=== PATIENT | male | born 1950 | race Caucasian/White ===

== ENCOUNTER 2020-10-23 09:52 | Emergency (ER) | payer MEDICARE, SELFPAY ==
[2020-10-23 10:29] VITALS: BP 166/82; PULSE 93; RESP 14; TEMP 36.9; O2SAT 99
--- NOTE | 2020-10-23 10:43 | ED.MALEGU ---
HPI - Male Genitourinary General Chief complaint: Urogenital-Male Stated complaint: BLOOD IN URINE Time Seen by Provider: 10/23/20 10:17 Source: patient Mode of arrival: ambulatory Limitations: no limitations History of Present Illness HPI Narrative: Patient is a 70-year-old male who presents complaining of hematuria and dysuria starting last p.m. He reports only able to urinate small amounts and only with a bowel movement. He reports a history of prostate cancer and radiation last year. His urologist is Dr. Matias. He denies abdominal pain, nausea or vomiting. He denies all other complaints. MD Complaint: other (Hematuria) Related Data Home Medications Medication Instructions Recorded Confirmed [id number]-[id number]-ast 1 cap PO DAILY 10/23/19 10/28/19 [MegaRed [place]-3 Krill Oil] vitamin B complex-folic acid [B 1 tablet PO DAILY 10/23/19 10/28/19 Complex 1 (with folic acid)] amoxicillin 875 mg-potassium 1 tablet PO BID 07/27/20 clavulanate 125 mg tablet Allergies Allergy/AdvReac Type Severity Reaction Status Date / Time No Known Allergies Allergy Unknown Verified 07/27/20 10:07 Review of Systems Review of Systems: Narrative: CONSTITUTIONAL: Denies fever, chills, or sweats. EYES: Denies visual changes, redness, or discharge. ENT: Denies rhinorrhea, congestion, sore throat, or otalgia. CARDIOVASCULAR: Denies chest pain, palpitations, or edema. RESPIRATORY: Denies cough or dyspnea. GASTROINTESTINAL: Denies abdominal pain, nausea, vomiting, or diarrhea. GENITOURINARY: Reports dysuria, hematuria and difficulty with urination. SKIN: Denies rash or itching. MUSCULOSKELETAL: Denies back pain, joint pain, or myalgia. NEUROLOGIC: Denies headache, numbness, dizziness, or weakness. PSYCHIATRIC: Denies anxiety or depression. [facility] Past Medical History Medical History H/O prostate cancer Hematochezia Hyperlipidemia Hypothyroid Prostate cancer Family History Family History Father Diabetes mellitus Hypertension Social History Social History Smoking status: Never smoker Alcohol intake: current Exam Narrative: Exam Narrative: GENERAL: Well-appearing, well-nourished, and in no acute distress. HEAD: Normocephalic, atraumatic. EYES: No redness or drainage. ENT: Mucous membranes pink and moist. CHEST: No respiratory distress. HEART: Regular rate and rhythm. GI: Soft, nontender without rebound, or guarding. EXTREMITIES: Normal range of motion. SKIN: Warm, dry, no rash. NEURO: No focal deficits. Alert and oriented x3. Gait steady. PSYCH: Normal affect. No signs of depression or anxiety. Course Vital Signs Vital signs: Vital Signs Temperature 36.9 C 10/23/20 10:29 Pulse Rate 93 10/23/20 10:29 Respiratory Rate 14 10/23/20 10:29 Blood Pressure 166/82 H 10/23/20 10:29 Pulse Oximetry 99 10/23/20 10:29 Temperature 36.9 C 10/23/20 10:29 Pulse Rate 93 10/23/20 10:29 Respiratory Rate 14 10/23/20 10:29 Blood Pressure 166/82 H 10/23/20 10:29 Pulse Oximetry 99 10/23/20 10:29 Reviewed. Patient has been instructed to follow-up with his PCP regarding his blood pressure. MDM - Male Genitourinary MDM Narrative Medical decision making narrative: Spoke with Dr. Martinez, urology. Patient had 330 residual urine after bladder scan. Patient to have Lindsey placed and flushed, follow-up with Dr. Matias on Sunday. Patient is aware that if Lindsey stops draining, to return to the ED for further evaluation. Patient is stable for discharge to home with outpatient follow-up as discussed. Differential Diagnosis Differential diagnosis: Likely urinary tract infection, prostatitis and acute retention of urine Lab Data Labs: Lab Results 10/23/20 Range/Units 10:45 Urine Color Red H (Yellow) Urine Yolanda
[2020-10-23 11:04] LABS: Add Urine Microscopic? YES; Appearance Urine Cloudy (Clear); Bilirubin Urine Negative (Negative); Blood Urine 3+ (Negative); Glucose Urine UA Negative (Negative); Ketones Urine Negative (Negative); Leukocyte Esterase Ur Negative LEU/UL (Negative); Nitrate Urine Negative (Negative); Protein Urine 2+ mg/dL (Negative); RBC Urine >75 /hpf (0-2); Specific Grav Ur 1.014 (1.001-1.035); Urobilinogen Urine Negative mg/dL (<2.0); WBC Urine >75 /hpf
[2020-10-23 11:14] LABS: Color Urine Red (Yellow)
[2020-10-23 11:30] VITALS: BP 155/77; PULSE 70; RESP 14; O2SAT 99
[2020-10-23 12:30] VITALS: BP 154/80; PULSE 80; RESP 12; O2SAT 99
== END 2020-10-23 12:31 | disposition home or self-care (01) ==
PROVIDERS: Emergency Provider Nurse Practitioner; PCP Family Medicine
DX: R33.9 Retention of urine, unspecified (principal); Z85.46 Personal history of malignant neoplasm of prostate; E78.5 Hyperlipidemia, unspecified; E03.9 Hypothyroidism, unspecified
CPT/HCPCS: 51702; 81001; 87086; 99283

== ENCOUNTER 2020-10-25 10:40 | Outpatient (CLI) | payer MEDICARE, SELFPAY ==
--- NOTE | ~2020-10-25 | CT_ITS ---
EXAMINATION: CT abdomen pelvis wo/w con DATE: 10/25/2020 11:42 INDICATION: Gross hematuria TECHNIQUE: Computed tomography (CT) of the abdomen and pelvis was performed without and subsequently with 130 cc Omnipaque 350 intravenous contrast. Automated exposure control and iterative reconstructi on technique were employed. Exam dose: 1512.67 mGy-cm total exam DLP. COMPARISON: None. FINDINGS: There are bilateral calcified pulmonary granulomas. The lung bases are clear of infiltrate or consolidation. Normal heart size. No pericardial or pleural effusion. Very small sliding hiatal hernia. The liver, gallbladder, bile ducts, spleen, pancreas, pancreatic duct, and adrenal glands are unremar kable. 1.5 cm lower pole right renal cysts. 6.6 cm lower pole left renal cyst. There is atherosclerotic calcification of the abdominal aorta and iliac arteries but no evidence of a neurysm. No intraperitoneal or retroperitoneal or pelvic mass lesion or adenopathy or ascites. There is a focal sessile polyp-like soft tissue density along the upper anterior wall of the urinary bladder, measuring up to proximally 4.5 mm depth, 12 mm maximal width. Cystoscopic correlation and pe rhaps biopsy are recommended. Air is noted within the urinary bladder. Differential diagnosis includes recent instrumentation, cyst itis versus fistulous communication with bowel. There is prostate enlargement. Radiopaque densities noted within the prostate gland. Normal appendix. There are numerous diverticula of the sigmoid and descending colon, and to a minimal extent the ascen ding colon; no CT evidence of diverticulitis. No bowel obstruction, bowel wall thickening, pneumatosis or intraperitoneal free air is detected. There are degenerative changes of the included lower thoracic and lumbar spine, including prominent m ultilevel degenerative disc disease of the lumbar and lumbosacral area. IMPRESSION: Small upper anterior bladder wall mass; cannot exclude urothelial bladder malignancy. Ur ologic consult with cystoscopy and possible biopsy are recommended. Prostate enlargement Diverticulosis of the colon Small sliding hiatal hernia Bilateral renal cysts Reviewed, dictated and finalized at [facility]. Reviewed, dictated and finalized at [facility]. [employer]ING [employer] IMPRESSION: Small upper anterior bladder wall mass; cannot exclude urothelial bladder malignancy. Urologic consult with cystoscopy and possible biopsy are re commended. Prostate enlargement Diverticulosis of the colon Small sliding hiatal hernia Bilateral renal cysts
[2020-10-25 11:19] LABS: Estimated Glomerular Filt Rate > 60
== END 2020-10-25 10:41 | disposition home or self-care (01) ==
PROVIDERS: PCP Family Medicine; Visit Provider Urology
DX: R31.0 Gross hematuria (principal); N32.89 Other specified disorders of bladder; N40.0 Benign prostatic hyperplasia without lower urinary tract symptoms; K57.90 Diverticulosis of intestine, part unspecified, without perforation or abscess without bleeding; K44.9 Diaphragmatic hernia without obstruction or gangrene; N28.1 Cyst of kidney, acquired
CPT/HCPCS: 74178; Q9967

== ENCOUNTER 2020-11-22 05:03 | Emergency (ER) | payer MEDICARE, SELFPAY ==
--- NOTE | ~2020-11-22 | US_ITS ---
EXAMINATION: US pelvic limited EXAM DATE: 11/22/2020 09:51 INDICATION: Gross hematuria, clots. TECHNIQUE: Pelvic transabdominal sonogram was performed. There are multiple grayscale and Doppler im ages available for interpretation. Correlation is made to CT urogram 10/25/2020. FINDINGS: Images demonstrate a Lindsey catheter and balloon anchor in the bladder there is echogenic ma terial in the dependent, posterior aspect of the bladder, partially surrounding the Lindsey catheter ba lloon. Total volume of this blood clot is probably about the same size as the Lindsey balloon anchor al though crescent-shaped surrounding it posteriorly. It is difficult to identify the small focal region of bladder wall thickening identified along the an terior superior aspect on CT scan from 10/25/2020, possible transitional cell cancer. IMPRESSION: Dependent echogenic material probably blood clot, total volume likely similar to the Fole y balloon anchor contiguous to it. Reviewed, dictated and finalized at location B. CONTROL ANALYST IMPRESSION: Dependent echogenic material probably blood clot, total volume like ly similar to the Lindsey balloon anchor contiguous to it.
[2020-11-22 05:13] VITALS: BP 161/91; PULSE 91; RESP 16; TEMP 37; O2SAT 100
--- NOTE | 2020-11-22 07:37 | ED.MALEGU ---
HPI - Male Genitourinary General Chief complaint: Urogenital-Male Stated complaint: HEMATURIA, DIFF WITH URINATION Time Seen by Provider: 11/22/20 07:36 Source: patient and family Mode of arrival: ambulatory Limitations: no limitations History of Present Illness HPI Narrative: Patient presents with hematuria that started yesterday. History of similar symptoms 1 month ago secondary to prostatic radiation which started 2 years ago. Patient was not able to urinate. Patient denies taking blood thinners, fever, chills, nausea, vomiting. Complaining of severe lower abdominal pain Related Data Home Medications Medication Instructions Recorded Confirmed [id number]-itpzhep-ast 1 cap PO DAILY 10/23/19 10/28/19 [MegaRed [place]-3 Krill Oil] vitamin B complex-folic acid [B 1 tablet PO DAILY 10/23/19 10/28/19 Complex 1 (with folic acid)] amoxicillin 875 mg-potassium 1 tablet PO BID 07/27/20 clavulanate 125 mg tablet Allergies Allergy/AdvReac Type Severity Reaction Status Date / Time No Known Allergies Allergy Unknown Verified 07/27/20 10:07 Review of Systems Review of Systems: Narrative: CONSTITUTIONAL: Denies fever, chills, or sweats. EYES: Denies visual changes, redness, or discharge. ENT: Denies rhinorrhea, congestion, sore throat, or otalgia. CARDIOVASCULAR: Denies chest pain, palpitations, or edema. RESPIRATORY: Denies cough or dyspnea. GASTROINTESTINAL: Denies abdominal pain, nausea, vomiting, or diarrhea. GENITOURINARY: Hematuria SKIN: Denies rash or itching. MUSCULOSKELETAL: Denies back pain, joint pain, or myalgia. NEUROLOGIC: Denies headache, numbness, or weakness. PSYCHIATRIC: Denies anxiety or depression. [facility] Past Medical History Medical History H/O prostate cancer Hematochezia Hyperlipidemia Hypothyroid Prostate cancer Family History Family History Father Diabetes mellitus Hypertension Social History Social History Smoking status: Never smoker Alcohol intake: current Exam Narrative: Exam Narrative: General appearance: Well-developed, well-nourished Skin: Normal color Head: Normocephalic, nontraumatic Eyes: Clear conjunctiva ENT: Oropharynx normal, ears normal, nose normal Neck: Supple, nontender Chest and respiratory: Airway patent, no respiratory distress, no accessory muscle use Heart: Regular rate/rhythm Abdomen: Soft, nontender, no organomegaly, quiet bowel sounds, Lindsey catheter in place, patient looks comfortable, Lindsey catheter bag containing 600 cc dark blood Vascular: Normal peripheral pulses, normal capillary refill. Musculoskeletal: Normal range of motion, nontender back Neurologic: Alert and oriented ?3, CARE TECH is normal as tested, no gross motor deficit Course Course Emergency Course: Improving Reevaluation(s) Reevaluation #1: Patient feeling much better, three-way Lindsey catheter was placed, draining urine is almost clear at this time, patient will be discharged on Cipro for urinary tract infection and to keep the Lindsey catheter in to be evaluated by his urologist in the next 3 to 5 days. Date: 11/22/20 Time: 10:38 Consultations Consultation #1: DR COOPER. It is okay with the discharge plan. Date: 11/22/20 Time: 10:44 Vital Signs Vital signs: Vital Signs Temperature 37.0 C 11/22/20 05:13 Pulse Rate 91 11/22/20 05:13 Respiratory Rate 16 11/22/20 05:13 Blood Pressure 161/91 H 11/22/20 05:13 Pulse Oximetry 100 11/22/20 05:13 Temperature 37.0 C 11/22/20 05:13 Pulse Rate 77 11/22/20 08:
--- NOTE | 2020-11-22 08:45 | WPDURCON ---
Assessment and Plan Assessment and plan (1) Hx of malignant neoplasm of prostate: Code(s): Z85.46 - Personal history of malignant neoplasm of prostate Status: Acute (2) Gross hematuria: Code(s): R31.0 - Gross hematuria Status: Acute Assessment and Plan: UTI v.s. Radiation Cystitis Will place a 3 way novoa, obtain a UA/Culture of urine, start CBI and get a LA once irrigated to rule out clot obstruction. Keep NPO at this time. Start antibiotics if urine appears to be infected. LA shows a small clot approximately the size of the catheter balloon, otherwise normal. His UA is suggestive of a UTI. CBI was stopped after that clot was irrigated as it was clear and patient went home with 3 way novoa to follow up in 3-5 days. He was also prescribed Ciprofloxacin. Urology Consult Note HPI Date Seen: 11/22/20 Primary Care Provider: Les Mason MD Consult Narrative Narrative: Angel Vargas is a 70 year old male who presented to the ER this morning for worsening acute onset of gross hematuria. His symptoms began yesterday mid morning with heavy blood in the urine, dysuria, frequency and pelvic pain. He denies injury or over activity prior to this event. He also c/o clots and inability to urinate through the night. 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 He is a known prostate cancer patient of Dr. Matias, who was treated with radiation and is now undergoing Firmagon injections q 4-6 months. He had a recent CT scan which showed normal upper tracts and a possible bladder tumor. However Dr. Matias followed up with him in the office after his discharge from the hospital for a cystoscope which was negative for any bladder tumors. He is hypertensive, but otherwise vitals are normal and he is afebrile. His inital catheter was placed and draining bloody urine, but a 3 way has been ordered and will be placed to start CBI. A UA with reflex to culture will also be collected to rule out infection. Review of Systems Cardiovascular: Cardiovascular: Denies chest pain Respiratory: Respiratory: Reports no additional respiratory complaints Gastrointestinal: Gastrointestinal: Denies abdominal pain, Denies nausea and Denies vomiting Genitourinary: Genitourinary: Reports hematuria, Reports dysuria, Denies flank pain, Reports urinary frequency and Denies urinary urgency [facility] Past Medical History Medical History H/O prostate cancer Hematochezia Hyperlipidemia Hypothyroid Prostate cancer Family History Family History Father Diabetes mellitus Hypertension Social History Social History Smoking status: Never smoker Alcohol intake: current Meds Home Medications and Allergies Home Medications Medication Instructions Recorded Confirmed Type [id number]-[id number]-6-erq-lbh-surmfxd-ast 1 cap PO DAILY 10/23/19 10/28/19 History [MegaRed [place]-3 Krill Oil] vitamin B complex-folic acid [B 1 tablet PO DAILY 10/23/19 10/28/19 History Complex 1 (with folic acid)] amoxicillin 875 mg-potassium 1 tablet PO BID 07/27/20 History clavulanate 125 mg tablet rosuvastatin 20 mg tablet 20 mg PO DAILY #90 tablet 07/27/20 07/27/20 Rx levothyroxine 112 mcg tablet 112 mcg PO DAILY #90 tablet 08/09/20 Rx ciprofloxacin HCl [Cipro] 500 mg PO Q12H #20 tablet 11/22/20 Rx Allergies Allergy/AdvReac Type Severity Reaction Status Date / Time No Known Allergies Allergy Unknown Verified 07/27/20 10:07 Vital Signs Vital Signs - 24 hr 11/22/20 05:13 Temperature 98.6 F Pulse Rate 91 Respiratory Rate 16 Blood Pressure 161/91 H Pulse Oximetry 100 Exam Resp: Effort & Inspection: normal respiratory effort Cardio: Rate: regular rate GI: Inspection: non-distended GI Palp: Yes Soft to palp
[2020-11-22 08:52] VITALS: BP 139/75; PULSE 77; RESP 17; O2SAT 98
[2020-11-22] MEDS: LIDOCAINE HCL 2% GEL UROJET 10 ML PKG (08:53)
[2020-11-22 09:11] LABS: Add Urine Microscopic? YES; Appearance Urine Cloudy (Clear); Bilirubin Urine Negative (Negative); Blood Urine 3+ (Negative); Color Urine Red (Yellow); Glucose Urine UA Negative (Negative); Ketones Urine Trace mg/dL (Negative); Leukocyte Esterase Ur Negative LEU/UL (Negative); Nitrate Urine Negative (Negative); Protein Urine 3+ mg/dL (Negative); RBC Urine >75 /hpf (0-2); Specific Grav Ur 1.011 (1.001-1.035); Urobilinogen Urine Negative mg/dL (<2.0); WBC Urine >75 /hpf
[2020-11-22] MEDS: CIPROFLOXACIN 500 MG TAB PO (11:09)
[2020-11-22 11:22] VITALS: BP 128/78; PULSE 77; RESP 17; O2SAT 100
== END 2020-11-22 11:24 | disposition home or self-care (01) ==
PROVIDERS: Nurse Practitioner Adult Health; Emergency Provider Emergency Medicine; PCP Family Medicine
DX: N39.0 Urinary tract infection, site not specified (principal); C61 Malignant neoplasm of prostate; R31.9 Hematuria, unspecified; R33.9 Retention of urine, unspecified; E03.9 Hypothyroidism, unspecified; E78.5 Hyperlipidemia, unspecified
CPT/HCPCS: 51700; 51702; 76857; 81001; 87086; 99283; A9270

== ENCOUNTER 2020-11-22 20:46 | Observation (INO) | payer MEDICARE, SELFPAY ==
--- NOTE | ~2020-11-22 | US_ITS ---
EXAMINATION: US pelvic limited DATE: 11/23/2020 08:40 INDICATION: Hematuria. TECHNIQUE: Multiple grayscale and Doppler ultrasound images of the pelvis were obtained. COMPARISON: Ultrasound 11/22/2020, CT abdomen and pelvis 10/25/20 FINDINGS: There is a Lindsey catheter in the bladder. There is hematoma around the Lindsey catheter. IMPRESSION: 1. Hematoma in the bladder. Reviewed, dictated and finalized at location [facility]. ERN DRUM MAKER IMPRESSION: 1. Hematoma in the bladder.
[2020-11-22 20:48] VITALS: BP 132/77; PULSE 86; RESP 14; TEMP 36.6; O2SAT 100
--- NOTE | 2020-11-22 21:30 | PC.NURSE ---
Pts catheter flushed using 1L normal saline and piston syringe per EDP Daniele verbal order. Dark blood returned with multiple clots. After 1L flushed urine was still dark with difficulty removing some clots. EDP notified. Verbal order to replace catheter with 3-way and start CBI obtained and started. Pt tolerating well.
--- NOTE | 2020-11-22 22:03 | ED.MALEGU ---
HPI - Male Genitourinary General Chief complaint: Urogenital-Male Stated complaint: plugged catheter Time Seen by Provider: 11/22/20 21:01 History of Present Illness HPI Narrative: Patient is a 70-year-old male who presents ER with bleeding from his Lindsey catheter. Patient was seen earlier in the day due to urinary retention and hematuria. He underwent continuous bladder irrigation with three-way urinary catheter. That was then exchanged for normal Lindsey. He went home was doing well until he stopped having return of urine several hours ago. He then developed lower abdominal pressure and then will void around his catheter. He is not any blood thinners. He was started on antibiotics. Apparently has had issues like this due to radiation several years ago related to prostate cancer. Related Data Home Medications Medication Instructions Recorded Confirmed hesss-qg-5-xwq-gyy-iqkcttv-ast 1 cap PO DAILY 10/23/19 11/23/20 [MegaRed [place]-3 Krill Oil] vitamin B complex-folic acid [B 1 tablet PO DAILY 10/23/19 11/23/20 Complex 1 (with folic acid)] chlorhexidine gluconate 15 ml PO TID 11/23/20 11/23/20 doxycycline hyclate 100 mg PO BID 11/23/20 11/23/20 Allergies Allergy/AdvReac Type Severity Reaction Status Date / Time No Known Allergies Allergy Unknown Verified 11/23/20 02:25 Review of Systems Constitutional: Constitutional: Denies chills, Denies fever(s) and Denies weakness Gastrointestinal: Gastrointestinal: Reports abdominal pain, Denies nausea and Denies vomiting Genitourinary: Genitourinary: Reports hematuria, Denies oliguria, Denies dysuria and Denies urinary frequency [facility] Past Medical History Medical History (Updated 11/23/20 @ 07:03 by Brijesh Sanabria MD) H/O prostate cancer Hematochezia Hyperlipidemia Hypothyroid Prostate cancer Family History Family History (Updated 11/23/20 @ 02:53 by Agnes Fontanez, RN) Father Diabetes mellitus Hypertension Acute angina Coronary artery disease Mother Congestive heart failure Sibling Myocardial infarction Social History Social History (Updated 11/23/20 @ 02:53 by Agnes Fontanez, RN) Smoking status: Never smoker Alcohol intake: current Drinks per week: 21 Substance use: current Substance use type: marijuana Living arrangements: with family Occupation/Education: retired Gender identity (if verbalized by the patient): Male Spiritual care concerns: No Exam Narrative: Exam Narrative: GENERAL: Well-appearing, well-nourished, and in no acute distress. HEAD: Normocephalic, atraumatic. EYES: PERRL and EOMI. ABDOMEN: Soft, nontender, nondistended. : Dark red urine in Lindsey catheter with normal external genitalia. EXTREMITIES: Normal range of motion. No edema. SKIN: Warm, dry, no rash. NEURO: Alert and oriented x3. PSYCH: Normal mood and affect. Course Course Emergency Course: Persistent hematuria despite CBI. Discussed with urology. Admit for observation to their service with an ultrasound morning keeping patient n.p.o. Patient verbalized understanding. Vital Signs Vital signs: Vital Signs Temperature 97.8 F 11/22/20 20:48 Pulse Rate 86 11/22/20 20:48 Respiratory Rate 14 11/22/20 20:48 Blood Pressure 132/77 11/22/20 20:48 Pulse Oximetry 100 11/22/20 20:48 Temperature 97.5 F L 11/23/20 04:36 Pulse Rate 67 11/23/20 04:36 Respiratory Rate 18 11/23/20 04:36 Blood Pressure 137/67 11/23/20 04:36 Pulse Oximetry 100 11/23/20 04:36 MDM - Male Genitourinary Lab Data Labs: Urine Characteristics Clots Urine Characteristics Clots Discharge Plan Discharge Clinical Impression: Hematuria Patient Disposition: Still a Patient Condition: Stable
--- NOTE | 2020-11-22 23:42 | PC.NURSE ---
1 bag infused for CBI, some small clots seen. Urine pink in color. 2nd bag infusing at this time.
[2020-11-23] VITALS (13 sets, daily range): BP systolic 102–141; BP diastolic 62–82; PULSE 56–78; RESP 10–20; TEMP 36–37.1; O2SAT 72–100; BMI 27.6
--- NOTE | 2020-11-23 01:19 | PC.NURSE ---
2 new 3L saline bags hung for CBI. Urine is pink in color with small clots
[2020-11-23] MEDS: CIPROFLOXACIN 400 MG/D5W 200ML 200 ML 200 MG IVPB ×2 (01:39→11:12)
--- NOTE | 2020-11-23 02:21 | ADMGEN ---
This patient, Angel Vargas, was admitted to Medical Room 346-01. Patient/family oriented to hospital policies and general routines including ID bracelet, bed and alarms, visiting hours, pain management, procedures, bathroom and other care routines, personal items, smoking policy, room service/diet, and visiting hours. Information on how to activate the Rapid Response Team has been discussed. Patient/Family are encouraged to report perceived risks to care and to ask questions if they do not understand what they are told or what they should do.
[2020-11-23] MEDS: MORPHINE SULFATE (*CRX) 4 MG/ML INJ IV PUSH ×3 (02:36→09:12)
[2020-11-23 09:09] LABS: Hemoglobin 11.3 g/dL (14.0-18.0); Mean Corpuscular HGB Conc 33.2 g/dl (32-36); Mean Corpuscular Hemoglobin 31.3 pg (26-34); Mean Corpuscular Volume 94.2 fl (80-100); Mean Platelet Volume 8.8 fl (7.4-10.4); Platelet Count Result 220 k/mm3 (150-375); Red Blood Count 3.61 M/mm3 (4.6-6.20); Red Cell Distribution Width 14.6 % (11.5-14.5); White Blood Count 7.5 K/mm3 (4.5-10.0)
[2020-11-23 09:21] LABS: Anion Gap 5 mmol/L (8-16); Blood Urea Nitrogen 13 mg/dL (9-20); Calcium 8.5 mg/dL (8.4-10.2); Carbon Dioxide 27 mmol/L (22-30); Chloride 107 mmol/L (98-107); Estimated CRCL calculation 65 ml/min; Estimated Glomerular Filt Rate > 60; Glucose 104 mg/dL (75-110); Sodium 139 mmol/L (137-145)
--- NOTE | 2020-11-23 09:32 | WPDURCON ---
Assessment and Plan Assessment and plan (1) Hematuria: Code(s): R31.9 - Hematuria, unspecified Status: Acute Assessment and Plan: CBI stopped, as his bladder is distended and catheter is not draining well. Will plan to go to the OR today for a Cystoscopy with clot evacuation. Obtain consent. Keep NPO. (2) Prostate cancer: Code(s): C61 - Malignant neoplasm of prostate Status: Acute Assessment and Plan: History of radiation cystitis. (3) UTI (urinary tract infection): Code(s): N39.0 - Urinary tract infection, site not specified Status: Acute Assessment and Plan: Continue Cipro, urine culture pending, will tailor antibiotics to culture results. (4) Clot retention of urine: Code(s): R33.8 - Other retention of urine Status: Acute Urology Consult Note HPI Date Seen: 11/23/20 Requesting Physician: Matti Patrick MD Primary Care Provider: Les Mason MD Consult Narrative Narrative: Angel Vargas is a 70 year old male who presented to the ER last night for the second time yesterday. Initially he was seen yesterday morning in the ER d/t acute onset of gross hematuria on Sunday, which worsened requiring a 3 [address] novoa and CBI with irrigation of his bladder until it was clear in the ER, he was started on Cipro and his 3 way novoa was exchanged for a regular catheter and he was discharged home. He states around 5pm he developed sudden retention of his novoa and it wouldn't drain. Therefore, he proceeded back to the ER late last night and was admitted for pain control, had another 3 way novoa placed with CBI and irrigation. Many small clots were removed, unfortunately his bladder US shows a large hematoma. He is in severe pain and his abdomen is distended and painful to palpation. WBC is normal, creatinine is stable as well, he will continue Cipro at this time. Review of Systems Cardiovascular: Cardiovascular: Denies chest pain Respiratory: Respiratory: Reports no additional respiratory complaints Gastrointestinal: Gastrointestinal: Reports abdominal pain, Denies nausea and Denies vomiting Genitourinary: Genitourinary: Reports hematuria, Reports flank pain and Reports other (novoa catheter not draining) [facility] Past Medical History Medical History H/O prostate cancer Hematochezia Hx of tongue cancer Hyperlipidemia Hypothyroid Osteomyelitis of mandible Prostate cancer Family History Family History Father Diabetes mellitus Hypertension Acute angina Coronary artery disease Mother Congestive heart failure Sibling Myocardial infarction Social History Social History Smoking status: Never smoker Alcohol intake: current Drinks per week: 21 Substance use: current Substance use type: marijuana Living arrangements: with family Occupation/Education: retired Gender identity (if verbalized by the patient): Male Spiritual care concerns: No Meds Home Medications and Allergies Home Medications Medication Instructions Recorded Confirmed Type qopaz-wc-5-rdq-yxb-iljwawb-ast 1 cap PO DAILY 10/23/19 11/23/20 History [MegaRed [place]-3 Krill Oil] vitamin B complex-folic acid [B 1 tablet PO DAILY 10/23/19 11/23/20 History Complex 1 (with folic acid)] rosuvastatin 20 mg tablet 20 mg PO DAILY #90 tablet 07/27/20 11/23/20 Rx levothyroxine 112 mcg tablet 112 mcg PO DAILY #90 tablet 08/09/20 11/23/20 Rx ciprofloxacin HCl [Cipro] 500 mg PO Q12H #20 tablet 11/22/20 11/23/20 Rx chlorhexidine gluconate 15 ml PO TID 11/23/20 11/23/20 History doxycycline hyclate 100 mg PO BID 11/23/20 11/23/20 History Allergies Allergy/AdvReac Type Severity Reaction Status Date / Time No Known Allergies Allergy Unknown Verified 11/23/20 02:25 Vital Signs Vital Signs - 24
--- NOTE | 2020-11-23 09:36 | WPDANESEPPF ---
Anes - Initial Pre Proc Eval Procedure: Operation Date: 11/23/20 13:15 Proposed Procedures p Cystoscopy, Evacuation Bladder Clots - Pino Johnson MD Date/Time: 11/23/20 09:36 Surgeon: Matti Patrick MD Pre Op Diagnosis: hematuria Patient Data Age: 70 Gender: M Height: 1.73 m Weight: 82.4 kg Last Vital Signs Temp 36.4 C L 11/23/20 04:36 Pulse 67 11/23/20 04:36 Resp 18 11/23/20 04:36 BP 137/67 11/23/20 04:36 Pulse Ox 100 11/23/20 04:36 Allergies Allergy/AdvReac Type Severity Reaction Status Date / Time No Known Allergies Allergy Unknown Verified 11/23/20 02:25 Home Medications Medication Instructions Recorded Confirmed Type [id number]-[id number]-ast 1 cap PO DAILY 10/23/19 11/23/20 History [MegaRed [place]-3 Krill Oil] vitamin B complex-folic acid [B 1 tablet PO DAILY 10/23/19 11/23/20 History Complex 1 (with folic acid)] rosuvastatin 20 mg tablet 20 mg PO DAILY #90 tablet 07/27/20 11/23/20 Rx levothyroxine 112 mcg tablet 112 mcg PO DAILY #90 tablet 08/09/20 11/23/20 Rx ciprofloxacin HCl [Cipro] 500 mg PO Q12H #20 tablet 11/22/20 11/23/20 Rx chlorhexidine gluconate 15 ml PO TID 11/23/20 11/23/20 History doxycycline hyclate 100 mg PO BID 11/23/20 11/23/20 History Laboratory Tests 11/23/20 11/23/20 08:57 08:57 WBC 7.5 K/mm3 K/mm3 (4.5-10.0) RBC 3.61 M/mm3 L M/mm3 (4.6-6.20) Hgb 11.3 g/dL L g/dL (14.0-18.0) Hct 34.0 % L % (42.0-52.0) MCV 94.2 fl fl (80-100) MCH 31.3 pg pg (26-34) MCHC 33.2 g/dl g/dl (32-36) RDW 14.6 % H % (11.5-14.5) Plt Count 220 k/mm3 k/mm3 (150-375) MPV 8.8 fl fl (7.4-10.4) Sodium 139 mmol/L mmol/L (137-145) Potassium 4.0 mmol/L mmol/L (3.4-5.0) Chloride 107 mmol/L mmol/L (98-107) Carbon Dioxide 27 mmol/L mmol/L (22-30) Anion Gap 5 mmol/L L mmol/L (8-16) BUN 13 mg/dL mg/dL (9-20) Creatinine 0.90 mg/dL mg/dL (0.7-1.3) Estim Creat Clear Calc 65 ml/min ml/min Estimated GFR > 60 (59 - ) Glucose 104 mg/dL mg/dL (75-110) Calcium 8.5 mg/dL mg/dL (8.4-10.2) Patient hx anesthesia problems: none Family hx anesthesia problems: none [facility] Past Medical History Medical History H/O prostate cancer Hematochezia Hx of tongue cancer Hyperlipidemia Hypothyroid Osteomyelitis of mandible Prostate cancer Family History Family History Father Diabetes mellitus Hypertension Acute angina Coronary artery disease Mother Congestive heart failure Sibling Myocardial infarction Social History Social History Smoking status: Never smoker Alcohol intake: current Drinks per week: 21 Substance use: current Substance use type: marijuana Living arrangements: with family Occupation/Education: retired Gender identity (if verbalized by the patient): Male Spiritual care concerns: No Anes - Eval Final PreProcedure Day of Procedure 11/23/20 09:36 Patient weight: overweight Heart: regular rate and rhythm Lungs: clear to auscultation and normal air movement Airway: Mallampati scale class II Neurological: alert and oriented Last oral intake: >/= 8 hours ASA classification: III Emergent: no Anesthetic plan: proceed Anesthesia type and monitoring: general GIVS and LMA Informed Consent: The patient's anesthetic plan and its attendant risks and benefits were discussed with the patient/family/POA. Questions were solicited and answers provided to the satisfaction of the patient/family/POA.
--- NOTE | 2020-11-23 11:46 | WPDHPUPDATE1 ---
History and Physical Update Update Date/Time: 11/23/20 11:46 History and Physical has been reviewed, including an updated exam of the patient. There are NO changes in the patient's condition. Risks, benefits, and alternatives have been discussed and questions answered. Patient agrees to proceed with procedure.
--- NOTE | 2020-11-23 11:55 | PCDIET ---
Pt to OR per bed. Report to BEATRICE Blankenship and BEATRICE Richard; confirmation of SBAR receipt.
[2020-11-23] MEDS: LACTATED RINGERS 1,000 ML 30 ML IV CONT (12:24)
[2020-11-23] MEDS: LIDOCAINE HCL 2% GEL UROJET 10 ML PKG MUCOUS MEM (13:04)
--- NOTE | 2020-11-23 13:32 | PM.PROC ---
Procedure Note - Detailed Date of procedure: 11/23/20 Pre-op diagnosis: hematuria Post-op diagnosis: same (Clots and vascular oozing) Procedure performed: Cystoscopy, clot evacuation, fulguration Description of procedure: Patient is taken to the operative suite and correctly identified. Once anesthesia was obtained he was placed in the dorsal lithotomy position and prepped and draped usual sterile fashion. The prior Lindsey was removed. A 22 Singaporean scope was inserted into the bladder. Using a Franck syringe approximately 2-300 cc of clot was evacuated. Reinspection reveals small little vascular lesion bleeding along the left lateral wall at the 3 o'clock position near the bladder neck. We attempted to resect this with the resectoscope would simply just disintegrated. We fulgurated the base area. We then went ahead and fulgurated a little bit of the posterior bladder wall which was irritated from the catheter. There was no other areas of bleeding noted at this time. Scope was removed. 2% viscous lidocaine was inserted. Twenty-two Singaporean [address] was placed with 15 cc in the balloon. This was connected to continuous bladder irrigation and patient is taken recovery room in stable condition. Anesthesia: GLMA Surgeon: Pino Johnson MD Drains: Yes Packing: No Pathology: none sent Complications: No immediate complications Condition: stable Disposition: PACU
--- NOTE | 2020-11-23 14:42 | PC.NURSE ---
Patient returned from OR per bed. Report received from BEATRICE Simpson.
[2020-11-23] MEDS: ROSUVASTATIN 10 MG TABLET 20 MG PO (15:54)
[2020-11-23] MEDS: DOXYCYCLINE HYCLATE 100 MG TABLET PO (17:18)
[2020-11-23] MEDS: CIPROFLOXACIN 500 MG TAB PO (17:19)
[2020-11-24 02:09] VITALS: BP 121/63; PULSE 67; RESP 14; TEMP 36.7; O2SAT 97
[2020-11-24] MEDS: CIPROFLOXACIN 500 MG TAB PO (05:49)
[2020-11-24] MEDS: LEVOTHYROXINE SODIUM 112 MCG TABLET PO (05:49)
[2020-11-24 06:42] VITALS: BP 124/64; PULSE 64; RESP 16; TEMP 36.7; O2SAT 97
--- NOTE | 2020-11-24 07:29 | WPDANESPN ---
Anes - Prog Note Post-Op Date/Time: 11/24/20 07:29 Cardiovascular status: normal Respiratory status: normal Airway patency: baseline Mental status: baseline Post-Op hydration status: normal Vital Signs: Last Vital Signs Temp 36.7 C 11/24/20 06:42 Pulse 64 11/24/20 06:42 Resp 16 11/24/20 06:42 BP 124/64 11/24/20 06:42 Pulse Ox 97 11/24/20 06:42 Pain Score (VAS): 1 I/O: Intake & Output 11/23/20 11/23/20 11/24/20 15:59 23:59 07:59 Intake Total 250 3100 150 Output Total 2500 3750 750 Balance -2250 -650 -600 Laboratory Tests 11/23/20 08:57 11/23/20 08:57 11/23/20 11/23/20 08:57 08:57 WBC 7.5 RBC 3.61 L Hgb 11.3 L Hct 34.0 L MCV 94.2 MCH 31.3 MCHC 33.2 RDW 14.6 H Plt Count 220 MPV 8.8 Sodium 139 Potassium 4.0 Chloride 107 Carbon Dioxide 27 Anion Gap 5 L BUN 13 Creatinine 0.90 Estim Creat Clear Calc 65 Estimated GFR > 60 Glucose 104 Calcium 8.5 Post-procedural complaints: none Patient Feedback: Patient satisfied with anesthetic care.
[2020-11-24 08:00] VITALS: BP 122/67; PULSE 64; RESP 16; TEMP 36.7; O2SAT 98
[2020-11-24] MEDS: ROSUVASTATIN 10 MG TABLET 20 MG PO (08:27)
[2020-11-24] MEDS: DOXYCYCLINE HYCLATE 100 MG TABLET PO (08:28)
[2020-11-24 09:24] LABS: Hematocrit 31.9 % (42.0-52.0); Hemoglobin 10.6 g/dL (14.0-18.0); Mean Corpuscular HGB Conc 33.2 g/dl (32-36); Mean Corpuscular Hemoglobin 31.7 pg (26-34); Mean Corpuscular Volume 95.5 fl (80-100); Mean Platelet Volume 8.8 fl (7.4-10.4); Platelet Count Result 196 k/mm3 (150-375); Red Blood Count 3.34 M/mm3 (4.6-6.20); Red Cell Distribution Width 14.5 % (11.5-14.5); White Blood Count 7.6 K/mm3 (4.5-10.0)
[2020-11-24 09:36] LABS: Anion Gap 4 mmol/L (8-16); Blood Urea Nitrogen 12 mg/dL (9-20); Calcium 8.6 mg/dL (8.4-10.2); Carbon Dioxide 29 mmol/L (22-30); Chloride 105 mmol/L (98-107); Estimated CRCL calculation 65 ml/min; Estimated Glomerular Filt Rate > 60; Glucose 161 mg/dL (75-110); Potassium 3.6 mmol/L (3.4-5.0); Sodium 138 mmol/L (137-145)
[2020-11-24] MEDS: MORPHINE SULFATE (*CRX) 4 MG/ML INJ IV PUSH (10:49)
[2020-11-24 13:27] VITALS: BP 116/63; PULSE 80; RESP 18; TEMP 36.9; O2SAT 100
--- NOTE | 2020-11-24 13:54 | PC.NURSE ---
On 11/24/20, the student, [Светлана Lawson ], provided care and completed [facility] documentation on this patient. I have reviewed the student's documentation and agree with the findings.
--- NOTE | 2020-11-24 16:03 | WPDUROPN2 ---
Progress Note: A&P Assessment and Plan (1) Clot retention of urine: Code(s): R33.8 - Other retention of urine Status: Acute Assessment and Plan: Patient doing very well. Ok to discharge home, will follow up with Dr. Matias in 2-3 weeks. (2) UTI (urinary tract infection): Code(s): N39.0 - Urinary tract infection, site not specified Status: Acute Assessment and Plan: Urine culture negative. (3) Gross hematuria: Code(s): R31.0 - Gross hematuria Status: Acute Assessment and Plan: Resolving, likely radiation cystitis. Subjective Subjective Date/Time Seen: 11/24/20 16:03 POD #1 Cystoscopy with clot evacuation. Patient had some moderate to severe bladder spasms earlier in the day, but after the catheter was removed he seems to be doing very well. He is urinating on his own with intermittent pink urine. He is well controlled with pain at this time and wants to go home. Review of Systems Cardiovascular: Cardiovascular: Denies chest pain Respiratory: Respiratory: Reports no additional respiratory complaints Gastrointestinal: Gastrointestinal: Denies abdominal pain, Denies nausea and Denies vomiting Genitourinary: Genitourinary: Reports hematuria, Denies dysuria, Denies flank pain, Denies urinary frequency, Denies urinary hesitancy and Reports urinary incontinence Exam Resp: Effort & Inspection: normal respiratory effort Cardio: Rate: regular rate GI: GI Palp: Yes Soft to palpation and No Tenderness to palpation present (GI) : General: Yes bladder normal to inspection and Yes no CVA tenderness Extrem: General: no edema Objective Data Vital Signs Vital Signs: Vital Signs - 24 hr 11/23/20 17:00 11/23/20 17:05 11/23/20 17:06 Temperature 98.1 F 97.3 F L 98.3 F Pulse Rate 78 72 77 Respiratory Rate 16 16 16 Blood Pressure 134/67 102/82 141/76 H Pulse Oximetry 95 72 L 97 11/23/20 21:17 11/24/20 02:09 11/24/20 06:42 Temperature 97.6 F 98.0 F 98.1 F Pulse Rate 78 67 64 Respiratory Rate 16 14 16 Blood Pressure 120/62 121/63 124/64 Pulse Oximetry 96 97 97 11/24/20 08:00 11/24/20 13:27 Temperature 98.0 F 98.4 F Pulse Rate 64 80 Respiratory Rate 16 18 Blood Pressure 122/67 116/63 Pulse Oximetry 98 100 Intake/Output Intake/Output: Intake & Output 11/21/20 11/22/20 11/23/20 11/24/20 23:59 23:59 23:59 23:59 Intake Total 3550 630 Output Total 6410 1350 Balance -2860 -720 Meds/Results Medications: Active Medications Generic Name Dose Route Start Last Admin Trade Name Freq PRN Reason Stop Dose Admin Ciprofloxacin 500 mg 11/23/20 18:00 11/24/20 05:49 Ciprofloxacin 500 Mg Tab PO 500 mg Q12H ANNIE Administration Doxycycline Hyclate 100 mg 11/23/20 17:00 11/24/20 08:28 Doxycycline Hyclate 100 Mg Tablet PO 100 mg BID ANNIE Administration Levothyroxine Sodium 112 mcg 11/24/20 06:30 11/24/20 05:49 Levothyroxine Sodium 112 Mcg Tablet PO 112 mcg DAILY@0630 ANNIE Administration Morphine Sulfate 4 mg 11/23/20 00:54 11/24/20 10:49 Morphine Sulfate (*Crx) 4 Mg/Ml Inj IV PUSH 4 mg Q2H PRN Administration Pain Rated 7-10 Rosuvastatin Calcium 20 mg 11/23/20 09:00 11/24/20 08:27 Rosuvastatin 10 Mg Tablet PO 20 mg DAILY ANNIE Administration Radiology Results: ITS Impressions Pelvis Ultrasound 11/23/20 08:44 IMPRESSION: 1. Hematoma in the bladder. Labs Labs: Laboratory Results - last 24 hr 11/24/20 11/24/20 09:18 09:18 WBC 7.6 RBC 3.34 L Hgb 10.6 L Hct 31.9 L MCV 95.5 MCH 31.7 MCHC 33.2 RDW 14.5 Plt Count 196 MPV 8.8 Sodium 138 Potassium 3.6 Chloride 105 Carbon Dioxide 29 Anion Gap 4 L BUN 12 Creatinine 0.90 Estim Creat Clear Calc 65 Estimated GFR > 60 Glucose 161 H Calcium 8.6
--- NOTE | 2020-12-29 08:19 | P.DS_ITS ---
DS: Admitting Diagnosis Admitting Diagnosis Admitting Diagnosis: Gross Hematuria DS: Discharge Diagnosis Discharge Diagnosis (1) Gross hematuria: Code(s): R31.0 - Gross hematuria Status: Acute DS: Summary Hospital Course Hospital Course: See note below Time Spent with Patient Time attestation: The patient underwent a Cystoscopy, clot evacuation and fulgeration on 11/23/[address] Kylah Johnson. He went to recovery in stable condition and to the floor for further observation overnight. He did well afterward, urine remained clear and pink and novoa was removed on 11/24/2020 and he was discharged home with activity as tolerated and diet as tolerated. He was to resume all home medications except Ciprofloxacin in addition to Tramadol and Pyridium and to follow up in 2-3 weeks. Exam Resp: Effort & Inspection: normal respiratory effort and no stridor Cardio: Rate: regular rate GI: GI Palp: Yes Soft to palpation and No Tenderness to palpation present (GI) : General: Yes no CVA tenderness Urinary Catheter: Urinary Catheter: patent and draining, urine clear and urine pink Extrem: General: no edema Discharge Plan Discharge Attending physician on discharge: Caty Ramirez Consulting providers: Radha Vargas ; Crescencio Fleming V. ; Pino Johnson Discharging Clinician: Radha Vargas Anticipated Discharge Date/Time: 11/24/20 16:08 Patient Disposition: Home, Self-Care Activity: february shower Diet: as tolerated Discharge Instructions: Call the office if you develop worsening blood in the urine or large clots develop, symptoms of urinary retention, symptoms of a UTI or fever of >102. You should proceed to the ER if our office is closed. Call the office to schedule a follow up in 2-[address] Matias. Patient Instructions: Antibiotic Form, Pain Management (DC), Novoa Catheter Placement and Care (DC), Hematuria (GEN), Continuous Bladder Irrigation (GEN) Stand Alone Forms: General Discharge Information Follow-up/Referrals: Joey Matias MD [Physician] - Discharge Medications: New phenazopyridine [Pyridium] 200 mg tablet 200 mg PO TID PRN (Reason: pain) Qty: 6 RF: 0 tramadol 100 mg tablet 100 mg PO Q6H PRN (Reason: pain) Qty: 20 RF: 0 Continued rosuvastatin 20 mg tablet 20 mg PO DAILY Qty: 90 RF: 2 doxycycline hyclate 100 mg tablet 100 mg PO BID RF: 0 chlorhexidine gluconate 0.12 % mouthwash 15 ml PO TID RF: 0 vitamin B complex-folic acid [B Complex 1 (with folic acid)] 0.4 mg Tablet 1 tablet PO DAILY RF: 0 qknxp-pf-4-gwe-cvh-zmavalc-ast [MegaRed [place]-3 Krill Oil] 1,000-230-60 mg Capsule 1 cap PO DAILY RF: 0 levothyroxine 112 mcg tablet 112 mcg PO DAILY Qty: 90 RF: 3 Discontinued ciprofloxacin HCl [Cipro] 500 mg tablet 500 mg PO Q12H Qty: 20 RF: 0 Date of admission: 11/23/20 00:54 Primary Care Provider: Les Mason Admitting Provider: Matti Patrick Attending physician on admission: Matti Patrick Condition: Stable
== END 2020-11-24 16:50 | disposition home or self-care (01) ==
LOC: ANHED 21:17 → ANH3MED 11-23 01:22
PROVIDERS: Nurse Practitioner Adult Health; Urology; Admitting Provider Urology; Emergency Provider Emergency Medicine; PCP Family Medicine; Visit Provider Urology
PROC: 0TCB8ZZ Extirpation of Matter from Bladder, Via Natural or Artificial Opening Endoscopic (ICD-10-PCS; CPT 52001; principal; 2020-11-23 13:15)
DX: R31.0 Gross hematuria (principal); R33.8 Other retention of urine; C61 Malignant neoplasm of prostate; N39.0 Urinary tract infection, site not specified; E78.5 Hyperlipidemia, unspecified; E03.9 Hypothyroidism, unspecified
CPT/HCPCS: 52234; 36415; 76857; 80048; 85027; 96361; 96365; 96375; 96376; 99285; A9270; G0378; J0744; J1100; J1940; J2270; J2370; J2405; J2704; J3010; J7120

== ENCOUNTER 2021-10-28 01:21 | Day surgery (SDC) | payer MEDICARE, SELFPAY ==
--- NOTE | 2021-10-27 14:21 | PC.NURSE ---
Report to the Outpatient Waiting Room, entrance under the green pavilion located off [facility], at time _0600 on date __10/28/21 . OR Time: 729 . - You and your visitor will be asked a series of questions to screen for COVID 19 for your protection. - A mask is required within the hospital. - Only one visitor is allowed at this time. Patient visitors will be guided where to wait when not with patient. Preoperative COVID Testing Requirements: No COVID Test needed if: (proof is required; if not received patient will have Rapid Test prior to entry) - Patient has received COVID Vaccine at least 14 days prior to procedure date or - Patient has positive COVID test result within last 90 days of surgery date. COVID Test needed if above criteria is not met If not COVID vaccinated a COVID test must be conducted within 72 hours of surgery and patient is asked to isolate self from time of testing until procedure. You will go to the [facility] for your COVID testing. The [facility] site is located at the corner of [address] [facility]. You will only be called if COVID results are positive and your surgeon may reschedule your elective surgery date. Patients may have clear liquids (water, carbonated beverages, clear teas, apple juice) until 3 hours prior to surgery with a maximum of 20 ounces. - No food from midnight until time of surgery - Infants may have breast milk until 4 hours before surgery, infant formula 6 hours prior to surgery. - Children will be allowed to drink immediately following surgery. If applicable, please bring a bottle or sippy cup to assist with drinking. Juice, water, soda, and popsicles are readily available. For infants on formula, please bring formula the day of surgery. Pacifiers are allowed. Take the following medications with a SIP of water the morning of surgery: ___LEVOTHYROXINE Medications to discontinue per physician NONE Date to take last dose Please no make-up, nail urdu, hairspray, perfume, deodorant, or body powder the day of surgery. No jewelry (including any body piercings) or valuables the day of surgery, leave them at home. Please take a shower or bath the night before, or the morning of, surgery with an antibacterial soap. Wear comfortable, loose fitting clothing. Children are encouraged to wear pajamas. - Jewelry must be removed prior to entering the operating room. Rings and piercings that are not removed may be cut off. - The hospital will not accept responsibility for valuables. - Please leave all valuables, including medications, at home the day of surgery. If you are going home after surgery, a licensed driver wheelchair must drive you home. - NO public transportation without another adult. - We recommend that an adult stay with you for 24 hours following discharge. - We also recommend that you do not drive, make important decision, drink alcoholic beverages, or take any drugs that were not prescribed by your health care provider for at least 24 hours after your discharge time. For Pediatric surgeries, we recommend two adults accompany the child home (only one inside the building at this time). Follow any additional instructions given to you from your surgeon. Telephone instructions given to ____PATIENT and asked if any additional questions and then verbalized understanding. Patient advised to call surgeon office or pre surgery nurse liaison [phone] if any additional questions.
[2021-10-27 14:24] VITALS: BMI 26.6
[2021-10-28] VITALS (8 sets, daily range): BP systolic 135–187; BP diastolic 79–87; PULSE 58–72; RESP 15–16; TEMP 36.6; O2SAT 99–100
--- NOTE | 2021-10-28 06:48 | WPDHPUPDATE1 ---
History and Physical Update Update Date/Time: 10/28/21 06:48 History and Physical has been reviewed, including an updated exam of the patient. There are NO changes in the patient's condition. Risks, benefits, and alternatives have been discussed and questions answered. Patient agrees to proceed with procedure.
[2021-10-28] MEDS: LACTATED RINGERS 1,000 ML 30 ML IV CONT (08:18)
--- NOTE | 2021-10-28 08:32 | P.PNAN_ITS ---
Anes - Initial Pre Proc Eval Procedure: Operation Date: 10/28/21 09:30 Proposed Procedures p Cystoscopy, Urethral Dilatation - Joey Matias MD Date/Time: 10/28/21 08:32 Surgeon: Joey Matias MD Pre Op Diagnosis: prostate cancer Patient Data Age: 71 Gender: M Height: 1.73 m Weight: 79.9 kg Last Vital Signs Temp 36.6 C 10/28/21 07:44 Pulse 71 10/28/21 07:44 Resp 16 10/28/21 07:44 BP 135/83 10/28/21 07:44 Pulse Ox 100 10/28/21 07:44 Allergies Allergy/AdvReac Type Severity Reaction Status Date / Time No Known Allergies Allergy Unknown Verified 10/28/21 07:59 Home Medications Medication Instructions Recorded Confirmed Type levothyroxine 112 mcg tablet 112 mcg PO DAILY #90 tablet 08/09/20 10/28/21 Rx doxycycline hyclate 100 mg PO DAILY 11/23/20 10/28/21 History rosuvastatin 20 mg tablet 20 mg PO DAILY #90 tablet 07/11/21 10/28/21 Rx ascorbic acid (vitamin C) 500 mg PO DAILY 10/27/21 10/28/21 History lisinopril 10 mg PO DAILY 10/27/21 10/28/21 History Patient hx anesthesia problems: none Family hx anesthesia problems: none Results Review: All pre-operative results and documents have been reviewed as part of the pre-operative evaluation. [facility] Past Medical History Medical History BMI 28.0-28.9,adult H/O prostate cancer Hematochezia Hx of tongue cancer Hyperlipidemia Hypothyroid Osteomyelitis of mandible Prostate cancer Family History Family History Father Diabetes mellitus Hypertension Acute angina Coronary artery disease Mother Congestive heart failure Sibling Myocardial infarction Social History Social History Smoking status: Former smoker Alcohol intake: current Drinks per week: 21 Substance use: current Substance use type: marijuana Living arrangements: with family Gender identity (if verbalized by the patient): Male Spiritual care concerns: No Anes - Eval Final PreProcedure Day of Procedure 10/28/21 08:32 Patient weight: overweight Heart: regular rate and rhythm Lungs: decreased breath sounds Airway: Mallampati scale class II Neurological: alert and oriented Last oral intake: >/= 8 hours ASA classification: III Emergent: no Anesthetic plan: proceed Anesthesia type and monitoring: general LMA and standard monitoring Results Review: All pre-operative results and documents have been reviewed as part of the pre-operative evaluation. Informed Consent: The patient's anesthetic plan and its attendant risks and benefits were discussed with the patient/family/POA. Questions were solicited and answers provided to the satisfaction of the patient/family/POA.
[2021-10-28] MEDS: ceFAZolin 2 GM/D5W 50 ML 2 GM/50 ML BAG IVPB (09:31)
[2021-10-28] MEDS: LIDOCAINE HCL 2% GEL UROJET 10 ML PKG MUCOUS MEM (09:40)
--- NOTE | 2021-10-28 10:00 | W.PM.PROC2 ---
Procedure Note - Detailed Date of Procedure 10/28/21 Pre-op Diagnosis Bulbous urethral stricture Post-op Diagnosis same Procedure Performed 1. Optical internal urethrotomy 2. Cystoscopy with urethral dilatation Surgeon Joey Matias MD Anesthesia general Description of Procedure The patient was brought to the operative suite where he was prepped and draped in a routine sterile fashion while in a dorsal lithotomy position after the uneventful administration of systemic sedation by the anesthesia department. 2% Lidocaine was placed in the urethra and allowed to stand for an appropriate period of time. Cystoscopy was undertaken with a 19F rigid cystoscope. He has a markedly constricting stricture of the bulbous urethra. The bladder itself was endoscopically normal without foreign body or neoplasm. The bladder mucosa was without hyperemia. There was a single orthotopic ureteral orifice bilaterally with clear reflex of urine. Using the optical urethrotome, I incised the strictured urethra at the 12 o'clock position care taken to avoid injury to the membranous urethra. to completely dilate the most proximal extent of this stricture did dilate with urethral dilators to from 16-24 F. An 20F Councill catheter was placed, the bladder was emptied and the patient was taken to the recovery room in good condition. Estimated Blood Loss 0 Drains Yes Packing No Pathology none sent Complications No immediate complications Condition stable Disposition PACU
[2021-10-28] MEDS: oxyCODONE HCL (*CRX) 5 MG TAB IR PO (11:27)
[2021-10-28] MEDS: hydrALAZINE HCL 20 MG/ML VIAL 10 MG IV PUSH (11:52)
== END 2021-10-28 12:33 | disposition home or self-care (01) ==
PROVIDERS: PCP Family Medicine; Visit Provider Urology
PROC: 0T7D8ZZ Dilation of Urethra, Via Natural or Artificial Opening Endoscopic (ICD-10-PCS; CPT 52281; principal; 2021-10-28 09:30)
DX: N35.912 Unspecified bulbous urethral stricture, male (principal); E78.5 Hyperlipidemia, unspecified; E03.9 Hypothyroidism, unspecified; Z85.46 Personal history of malignant neoplasm of prostate; F12.90 Cannabis use, unspecified, uncomplicated
CPT/HCPCS: 52276; A9270; C1769; J0360; J0690; J1100; J2405; J2704; J7120

== ENCOUNTER 2022-01-23 20:02 | Observation (INO) | payer MEDICARE, SELFPAY ==
[2022-01-23] VITALS (7 sets, daily range): BP systolic 142–173; BP diastolic 67–88; PULSE 72–87; RESP 14–24; TEMP 36.2; O2SAT 93–100
--- NOTE | ~2022-01-23 | MR_ITS ---
. EXAMINATION: MR brain/brain stem wo/w con DATE: 01/24/2022 08:36 INDICATION: Vertigo. TECHNIQUE: Magnetic resonance imaging (MRI) of the brain and brainstem was performed without and with 15 mL MultiHance intravenous contrast. Sequences included sagittal and axial T1-weighted FSE, axial diffusion-weighted FS EPI, axial T2*-weighted GRE, axial T2-weighted FLAIR Propeller, and axial T2-we ighted Propeller. Postcontrast sequences included axial and coronal T1-weighted FSE. Apparent diffusi on coefficient (ADC) maps were created. COMPARISON: Head CT 01/23/2022 FINDINGS: There is a small focus of increased T2-weighted signal intensity in the right frontal lobe deep white matter, which is normal as an isolated finding. 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 There is no intracranial hemorrhage, acute infarction, or abnormal intracranial mass lesion. The ventricles are normal in size. There is mucosal thickening in the paranasal sinuses. The orbits are normal. There is a trace right mastoid effusion. IMPRESSION: 1. Normal brain. Reviewed, dictated and finalized at location A. IMPRESSION: 1. Normal brain.
--- NOTE | ~2022-01-23 | CT_ITS ---
EXAMINATION: CTA brain carotid DATE: 01/23/2022 22:51 INDICATION: Dizziness. TECHNIQUE: Computed tomographic angiography (CTA) of the head was performed without and with 100 mL O mnipaque-350 intravenous contrast. CTA of the neck was performed with intravenous contrast. Automated exposure control and iterative reconstruction technique were employed. The dose-length product was 1 926.23 mGy-cm. Maximum intensity projection and volume rendered 3D-reconstructions were created by brandon conner technologist on a separate workstation. COMPARISON: Neck CT 05/31/2004 FINDINGS: HEAD CTA: There is no intracranial hemorrhage, acute infarction, or abnormal intracranial mass lesion . The ventricles are normal in size. There is mucosal thickening in the paranasal sinuses. The orbits are normal. There is a trace right mastoid effusion. The vertebral arteries are codominant. There is no significant stenosis of basilar artery or the posterior cerebral arteries. There is mild stenosis of the intracranial internal carotid arteries. There is no significant stenosis of the anterior or m iddle cerebral arteries. Anterior communicating artery is normal. Left posterior communicating artery is normal. Right posterior communicating artery is small or absent. There is no aneurysm. NECK CTA: There is mild scarring at the lung apices. There are changes of right-sided neck resection. There are changes of resection of right body of the mandible with bone graft and plate and screws. T here is mucosal thickening in the pharynx and larynx, likely changes of radiation therapy. There are no pathologically enlarged lymph nodes. There is plaque in the proximal internal carotid arteries. T here is 0% stenosis of the proximal right internal carotid artery relative to normal distal artery ariadne men diameter (NASCET criteria). There is 0% stenosis of the proximal left internal carotid artery rel ative to normal distal artery lumen diameter. There is severe cervical spondylosis. IMPRESSION: 1. Normal brain. No aneurysm or significant intracranial arterial stenosis. 2. 0% stenosis of the proximal internal carotid arteries relative to normal distal artery lumen diam eters (NASCET criteria). Reviewed, dictated and finalized at location A. IMPRESSION: 1. Normal brain. No aneurysm or significant intracranial arterial stenosis. 2. 0% stenosis of the proximal internal carotid arteries relative to normal di stal artery lumen diameters (NASCET criteria).
[2022-01-23 20:24] LABS: Basophils Absolute Auto 0.1 K/mm3 (0.0-0.1); Basophils Percent Auto 0.8 % (0.2-1.2); Eosinophils Absolute Auto 0.1 K/mm3 (0-0.3); Eosinophils Percent Auto 1.3 % (0-4.4); Hematocrit 36.5 % (42.0-52.0); Hemoglobin 13.1 g/dL (14.0-18.0); Immature Granulocyte Absolute 0.07 K/mm3 (0.00-0.031); Immature Granulocyte Percent A 1.1 % (0-0.5); Lymphocytes Absolute Auto 1.07 K/mm3 (0.9-3.2); Lymphocytes Percent Auto 17.1 % (18.3-44.2); Mean Corpuscular HGB Conc 35.9 g/dl (32-36); Mean Platelet Volume 9.1 fl (7.4-10.4); Monocytes Absolute Auto 0.5 K/mm3 (0.1-0.6); Monocytes Percent Auto 7.5 % (2.6-8.5); Neutrophils Absolute Auto 4.5 K/mm3 (1.3-6.7); Neutrophils Percent Auto 72.2 % (45.5-73.1); Platelet Count Result 243 k/mm3 (150-375); Red Cell Distribution Width 13.6 % (11.5-14.5); White Blood Count 6.3 K/mm3 (4.5-10.0)
[2022-01-23 20:39] LABS: Alanine Aminotransferase 22 U/L (4-50); Albumin Level 4.6 g/dL (3.5-5.1); Alkaline Phosphatase 69 U/L (38-126); Anion Gap 14 mmol/L (8-16); Aspartate Amino Transferase 34 U/L (17-59); Bilirubin,Total 0.4 mg/dL (0.2-1.3); Blood Urea Nitrogen 20 mg/dL (9-20); Calcium 9.5 mg/dL (8.4-10.2); Carbon Dioxide 17 mmol/L (22-30); Chloride 102 mmol/L (98-107); Estimated CRCL calculation 64 ml/min; Estimated Glomerular Filt Rate > 60; Glucose 127 mg/dL (65-110); Lipase 135 U/L (23-300); Potassium 3.9 mmol/L (3.4-5.0); Sodium 133 mmol/L (137-145)
--- NOTE | 2022-01-23 21:32 | ECG_ITS ---
Measurements Intervals La[place] Rate: 76 P: 66 WI: 189 QRS: -16 QRSD: 104 T: 30 QT: 405 QTc: 457 Interpretive Statements SINUS RHYTHM NO PREVIOUS ECG AVAILABLE FOR COMPARISON Electronically Signed On 01-24-2022 8:48:02 CDT by Tavo Patterson M.D.
--- NOTE | 2022-01-23 21:34 | ED.NAVMDI ---
HPI - Nausea/Vomiting/Diarrhea General Chief complaint: Nausea/Vomiting/Diarrhea Stated complaint: nausea, vomiting Time Seen by Provider: 01/23/22 21:24 Source: patient History of Present Illness HPI Narrative: Patient presents with dizziness and vomiting. Patient ports he is feeling well today and around 3:00 started to feel unwell went to take a nap woke up around 530 this evening and reported dizziness described sensation of feeling off balance and developed nausea and vomiting. Family then transported to the ER for further evaluation. Denies any diarrhea. Denies any fevers or known sick contacts denies any headaches focal numbness or weakness denies any changes in vision. Reports his dizziness gets worse with moving his head. Feels more comfortable not moving and closing his eyes. Related Data Home Medications Medication Instructions Recorded Confirmed doxycycline hyclate 100 mg PO DAILY 11/23/20 01/24/22 ascorbic acid (vitamin C) 500 mg PO DAILY 10/27/21 01/24/22 B Complex 1 tablet PO DAILY 01/24/22 01/24/22 Allergies Allergy/AdvReac Type Severity Reaction Status Date / Time No Known Allergies Allergy Unknown Verified 01/24/22 04:05 Review of Systems Review of Systems: CONSTITUTIONAL: Denies fever, chills, or sweats. EYES: Denies visual changes, redness, or discharge. ENT: Denies rhinorrhea, congestion, sore throat, or otalgia. CARDIOVASCULAR: Denies chest pain, palpitations, or edema. RESPIRATORY: Denies cough or dyspnea. GASTROINTESTINAL: Denies abdominal pain, or diarrhea. GENITOURINARY: Denies dysuria or hematuria. SKIN: Denies rash or itching. MUSCULOSKELETAL: Denies back pain, joint pain, or myalgia. NEUROLOGIC: Denies headache, numbness, or weakness. PSYCHIATRIC: Denies anxiety or depression. All systems reviewed & are unremarkable except as noted in HPI and below PMFSH Past Medical History Medical History BMI 26.0-26.9,adult BMI 28.0-28.9,adult H/O prostate cancer Hematochezia Hx of tongue cancer Hyperlipidemia Hypothyroid Osteomyelitis of mandible Prostate cancer Surgical History Surgical History H/O cystoscopy Family History Family History Father Diabetes mellitus Hypertension Acute angina Coronary artery disease Mother Congestive heart failure Sibling Myocardial infarction Social History Social History Smoking status: Never smoker Tobacco type: cigarettes Second hand tobacco smoke exposure: No Alcohol intake: current Drinks per week: 12 Substance use: never Substance use type: marijuana Additional occupation/education comments: [employer] Gender identity (if verbalized by the patient): Male Spiritual care concerns: No Exam Narrative: GENERAL: Well-appearing, well-nourished, and in no acute distress. HEAD: Normocephalic, atraumatic. EYES: PERRLA and EOMI. ENT: Nares clear, no rhinorrhea or epistaxis. Mucous membranes moist. NECK: Supple. No masses. No JVD CHEST: Clear to auscultation. No respiratory distress. No wheezes rales or rhonchi HEART: Regular rate and rhythm. No murmur heard. Normal peripheral pulses. ABDOMEN: Soft, nontender, nondistended, normal active bowel sounds. EXTREMITIES: Normal range of motion. No edema. SKIN: Warm, dry, no rash. NEURO: Cranial nerves II through XII are intact patient has 5 out of 5 strength in all extremities sensation intact to light touch in all extremities. Difficulty with repetitive movements on the left upper extremity difficulty with [id number] on the left upper extremity. Alert and oriented x3. PSYCH: Normal mood and affect. Course Reevaluation(s) Reevaluation #1: Patient reports feeling improved repeat neurologic exam with improved but continued difficul
[2022-01-23] MEDS: MECLIZINE HCL 25 MG TABLET PO (21:51)
--- NOTE | 2022-01-23 22:27 | PC.NURSE ---
Pt to CT via stretcher at this time. Pt alert and upright on stretcher during transport out of ED.
[2022-01-23 22:33] LABS: Add Urine Microscopic? YES; Appearance Urine Cloudy (Clear); Bilirubin Urine Negative (Negative); Blood Urine Negative (Negative); Color Urine Yellow (Yellow); Glucose Urine UA Negative (Negative); Ketones Urine 2+ mg/dL (Negative); Leukocyte Esterase Ur Negative LEU/UL (Negative); Mucus Urine Rare /lpf; Nitrate Urine Negative (Negative); Protein Urine 1+ mg/dL (Negative); RBC Urine 0-2 /hpf (0-2); Specific Grav Ur 1.015 (1.001-1.035); Urobilinogen Urine Negative mg/dL (<2.0); WBC Urine 0-3 /hpf
[2022-01-23] MEDS: ONDANSETRON INJ 4 MG/2 ML VIAL IV PUSH (23:08)
[2022-01-24] VITALS (10 sets, daily range): BP systolic 112–147; BP diastolic 59–68; PULSE 67–86; RESP 15–20; TEMP 36.7–36.9; O2SAT 96–98; BMI 25.5
--- NOTE | 2022-01-24 04:00 | ADMGEN ---
This patient, Angel Vargas, was admitted to Medical Room 251-. Patient/family oriented to hospital policies and general routines including ID bracelet, bed and alarms, visiting hours, pain management, procedures, bathroom and other care routines, personal items, smoking policy, room service/diet, and visiting hours. Information on how to activate the Rapid Response Team has been discussed. Patient/Family are encouraged to report perceived risks to care and to ask questions if they do not understand what they are told or what they should do.
[2022-01-24] MEDS: SODIUM CHLORIDE 0.9% IV 1,000 ML 125 ML IV CONT (04:17)
[2022-01-24 08:12] LABS: Alanine Aminotransferase 21 U/L (4-50); Albumin Level 4.1 g/dL (3.5-5.1); Alkaline Phosphatase 52 U/L (38-126); Anion Gap 6 mmol/L (8-16); Aspartate Amino Transferase 38 U/L (17-59); Bilirubin,Total 0.6 mg/dL (0.2-1.3); Blood Urea Nitrogen 16 mg/dL (9-20); Calcium 8.8 mg/dL (8.4-10.2); Carbon Dioxide 28 mmol/L (22-30); Chloride 102 mmol/L (98-107); Estimated CRCL calculation 58 ml/min; Estimated Glomerular Filt Rate > 60; Glucose 125 mg/dL (65-110); Potassium 4.3 mmol/L (3.4-5.0); Sodium 136 mmol/L (137-145)
[2022-01-24 08:13] LABS: Hemoglobin A1C 5.1 % (<5.7)
[2022-01-24] MEDS: ASCORBIC ACID 500 MG TABLET PO (09:03)
[2022-01-24] MEDS: VITAMIN B COMPLEX CAPSULE 1 CAP PO (09:03)
[2022-01-24] MEDS: lisinopriL 20 MG TABLET PO (09:03)
[2022-01-24] MEDS: ROSUVASTATIN 10 MG TABLET 20 MG PO (09:03)
[2022-01-24] MEDS: LEVOTHYROXINE SODIUM 112 MCG TABLET PO (09:03)
[2022-01-24] MEDS: DOXYCYCLINE HYCLATE 100 MG TABLET PO (09:04)
--- NOTE | 2022-01-24 12:15 | PM.SD2 ---
Same Day Admit/Disch: HPI History of Present Illness Chief complaint: vertigo Narrative: Angel Vargas is a 71 year old male with past medical history of tongue cancer, prostate cancer, hypertension, hyperlipidemia, hypothyroidism, osteomyelitis of hte mandible, who was admitted to our service for sudden onset dizziness, nausea, vomiting. He reports the symptoms began at 3PM on 01/23, at which point, he took a nap, woke at 5:30, and the symptoms persisted. Head movement made the symptoms much worse, and nothing made it better. He was unable to drive due to the vertigo and called an ambulance to the ER. He has never experienced this in the past. He denies any sick contacts, but endorses severe seasonal allergies. He reports his symptoms have completely resolved as of this morning after receiving medications in the ER, and he has had normal bowel and bladder function. He denies chest pain, visual changes, shortness of breath, weakness in his extremities, or loss of balance. He denies history of heart attack, stroke, or blood clots. He currently takes medication for his thyroid, cholesterol, and blood pressure, and has no recent changes to medications. Surgical history includes reconstructive surgery for his tongue cancer in 2003, Hernia surgia in 2016, and bone graft for his jaw osteomyelitis in 2020. His other is , and had heart disease and diabetes mellitus. His father is and had heart disease, a stroke, and diabetes mellitus. His brother 4 years ago of a [place]. He is a never smoker, and drinks 2-3 beers daily. He denies street drug or recreational drug use. [facility] Past Medical History Medical History BMI 26.0-26.9,adult BMI 28.0-28.9,adult H/O prostate cancer Hematochezia Hx of tongue cancer Hyperlipidemia Hypothyroid Osteomyelitis of mandible Prostate cancer Surgical History Surgical History H/O cystoscopy Family History Family History Father Diabetes mellitus Hypertension Acute angina Coronary artery disease Mother Congestive heart failure Sibling Myocardial infarction Social History Social History Smoking status: Never smoker Tobacco type: cigarettes Second hand tobacco smoke exposure: No Alcohol intake: current Drinks per week: 12 Substance use: never Substance use type: marijuana Additional occupation/education comments: [employer] Gender identity (if verbalized by the patient): Male Spiritual care concerns: No Same Day Admit/Disch: Med Pre-admit Medications Home Medications Medication Instructions Recorded Confirmed Type doxycycline hyclate 100 mg PO DAILY 11/23/20 01/24/22 History rosuvastatin 20 mg tablet 20 mg PO DAILY #90 tablet 07/11/21 01/24/22 Rx ascorbic acid (vitamin C) 500 mg PO DAILY 10/27/21 01/24/22 History lisinopril 20 mg tablet 20 mg PO DAILY #90 tablet 11/09/21 01/24/22 Rx levothyroxine 112 mcg tablet 112 mcg PO DAILY #90 tablet 01/02/22 01/24/22 Rx B Complex 1 tablet PO DAILY 01/24/22 01/24/22 History Exam Narrative: GENERAL APPEARANCE: Alert and oriented x 3, in no apparent distress. HEENT: PERRL, EOMI. Right gaze with single nystagmus beat. sclerae anicteric. Moist mucous membranes. NECK: Supple. No JVD or obvious carotid bruits. RESPIRATORY: Respirations are nonlabored. Breath sounds are equal and clear bilaterally. No wheezes, Rhonchi, or rales. CARDIOVASCULAR: Regular rate and rhythm with normal S1-S2. No murmurs, gallops, or rubs. GASTROINTESTINAL: Soft, flat, and benign. No mass, tenderness, guarding, or rebound. No organomegaly or hernia. Bowel sounds are present. SKIN: Warm, dry, well perfused. Good turgor. No lesions, nodules, or rashes noted. Warm and dry. No rash or lesions
--- NOTE | 2022-01-24 13:29 | PC.NURSE ---
On 01/24/22 [employer] student Meeta Babin performed care and charted an assessment in [facility], I agree with her assessment and documentation.
--- NOTE | 2022-01-24 16:30 | WPDNEURCNPN ---
Assessment and Plan Additional Plan dizziness with no neurological deficit but history of review the years for couple of days before this episode could be secondary to canallopathy and advise accordingly Consult date: 01/24/22 HPI: Angel Vargas is a 71 year old male admitted to the hospital for the complaints of nausea vomiting and dizziness. As per the information available around 3:00 p.m. he started to feel unwell went to take a nap woke up around 5:30 p.m. in the evening felt dizzy and off balance developed nausea and vomiting came to the emergency room gave no history of diarrhea, CP or any sick contact. Had been taking doxycycline 100 mg daily a sclerotic acid 500 mg daily with B complex 1 tablet daily, has no known drug allergies, history of current alcohol intake 12 drinks per week no substance abuse never smoker initial vital signs is stable except blood pressure 173/88 and routine lab norm, considering the dizziness and the possibility of the posterior circulation TIA CTA of the head and neck was done which revealed no blockage of large vessels and subsequent MRI of the brain also Review of Systems Review of Systems: All systems reviewed & are unremarkable except as noted in HPI and below PMFSH Past Medical History Medical History BMI 26.0-26.9,adult BMI 28.0-28.9,adult H/O prostate cancer Hematochezia Hx of tongue cancer Hyperlipidemia Hypothyroid Osteomyelitis of mandible Prostate cancer Surgical History Surgical History H/O cystoscopy Family History Family History Father Diabetes mellitus Hypertension Acute angina Coronary artery disease Mother Congestive heart failure Sibling Myocardial infarction Social History Social History Smoking status: Never smoker Tobacco type: cigarettes Second hand tobacco smoke exposure: No Alcohol intake: current Drinks per week: 12 Substance use: never Substance use type: marijuana Additional occupation/education comments: [employer] Gender identity (if verbalized by the patient): Male Spiritual care concerns: No Meds Home Medications and Allergies Home Medications Medication Instructions Recorded Confirmed Type doxycycline hyclate 100 mg PO DAILY 11/23/20 01/24/22 History rosuvastatin 20 mg tablet 20 mg PO DAILY #90 tablet 07/11/21 01/24/22 Rx ascorbic acid (vitamin C) 500 mg PO DAILY 10/27/21 01/24/22 History lisinopril 20 mg tablet 20 mg PO DAILY #90 tablet 11/09/21 01/24/22 Rx levothyroxine 112 mcg tablet 112 mcg PO DAILY #90 tablet 01/02/22 01/24/22 Rx B Complex 1 tablet PO DAILY 01/24/22 01/24/22 History Allergies Allergy/AdvReac Type Severity Reaction Status Date / Time No Known Allergies Allergy Unknown Verified 01/24/22 04:05 Vital Signs Vital Signs - 24 hr 01/23/22 20:03 01/23/22 21:20 01/23/22 21:38 Temperature 36.2 C L Pulse Rate 81 74 72 Respiratory Rate 22 H 19 17 Blood Pressure 173/88 H Pulse Oximetry 100 100 100 01/23/22 21:45 01/23/22 21:46 01/23/22 22:48 Temperature Pulse Rate 78 76 87 Respiratory Rate 20 24 H 20 Blood Pressure 142/78 H 154/78 H Pulse Oximetry 93 96 99 01/23/22 23:09 01/24/22 01:14 01/24/22 03:05 Temperature Pulse Rate 81 85 80 Respiratory Rate 14 16 15 Blood Pressure 142/67 H 126/59 L 115/68 Pulse Oximetry 97 96 97 01/24/22 03:45 01/24/22 04:00 01/24/22 04:11 Temperature 36.7 C Pulse Rate 82 86 82 Respiratory Rate 16 20 16 Blood Pressure 114/67 147/68 H 114/67 Pulse Oximetry 96 98 96 01/24/22 04:48 01/24/22 08:00 01/24/22 10:02 Temperature 36.8 C Pulse Rate 77 79 67 Respiratory Rate 16 Blood Pressure 124/65 Pulse Oximetry 98 01/24/22 12:01 01/24/22 14:04 Temperature 36.9 C Pulse Rate 76 71 Respiratory Ra
== END 2022-01-24 16:40 | disposition home or self-care (01) ==
LOC: ANHED 01-24 → ANH2MED 01-24 01:41
PROVIDERS: Student in an Organized Health Care Education/Training Program; Admitting Provider Internal Medicine; Emergency Provider Emergency Medicine; PCP Family Medicine; Visit Provider Internal Medicine
DX: R42 Dizziness and giddiness (principal); I10 Essential (primary) hypertension; E03.9 Hypothyroidism, unspecified; E78.5 Hyperlipidemia, unspecified; M27.2 Inflammatory conditions of jaws; Z85.810 Personal history of malignant neoplasm of tongue; Z85.46 Personal history of malignant neoplasm of prostate; Z79.899 Other long term (current) drug therapy
CPT/HCPCS: 36415; 70496; 70498; 70553; 80053; 81001; 83036; 83690; 85025; 93005; 96374; 99285; A9270; A9577; G0378; J2405; J7030; Q9967

== ENCOUNTER 2022-06-22 01:04 | Day surgery (SDC) | payer MEDICARE, SELFPAY ==
[2022-06-19 09:46] VITALS: BMI 27.4
--- NOTE | 2022-06-19 09:54 | PC.NURSE ---
Report to the Outpatient Waiting Room, entrance under the green pavilion located off [facility], at time ____06___ on date ___06/22/22____. OR Time: ___814 . - You and your visitor will be asked to self-screen and do not enter if you have any COVID symptoms. - Only one visitor and NO children visitors are allowed at this time. - The patient visitor is requested to leave or wait in car when not with patient due to restrictions. - A mask is required within the hospital. Patients may have clear liquids (water, carbonated beverages, clear teas, apple juice) until 3 hours prior to surgery (0515 AM) with a maximum of 20 ounces. - No food from midnight until time of surgery - Infants may have breast milk until 4 hours before surgery, infant formula 6 hours prior to surgery. - Children will be allowed to drink immediately following surgery. If applicable, please bring a bottle or sippy cup to assist with drinking. Juice, water, soda, and popsicles are readily available. For infants on formula, please bring formula the day of surgery. Pacifiers are allowed. Take the following medications with a SIP of water the morning of surgery: _LEVOTHYROXINE_ Medications to discontinue per physician _PT STATES ALREADY STOPPING VIT C, B COMPLEX LAST WEEK __ Date to take last dose Please no make-up, nail nigerien, hairspray, perfume, deodorant, or body powder the day of surgery. No jewelry (including any body piercings) or valuables the day of surgery, leave them at home. Please take a shower or bath the night before, or the morning of, surgery with an antibacterial soap. Wear comfortable, loose fitting clothing. Children are encouraged to wear pajamas. - Jewelry must be removed prior to entering the operating room. Rings and piercings that are not removed may be cut off. - The hospital will not accept responsibility for valuables. - Please leave all valuables, including medications, at home the day of surgery. If you are going home after surgery, a licensed helper/driver must drive you home. - NO public transportation without another adult. - We recommend that an adult stay with you for 24 hours following discharge. - We also recommend that you do not drive, make important decision, drink alcoholic beverages, or take any drugs that were not prescribed by your health care provider for at least 24 hours after your discharge time. For Pediatric surgeries, we recommend two adults accompany the child home (only one inside the building at this time). Follow any additional instructions given to you from your surgeon. If you or anyone in your household have experienced Covid symptoms in the past week, please notify your surgeon or the nurse liaison at the phone number below for possible testing. Telephone instructions given to ____PT and asked if any additional questions and then verbalized understanding. Patient advised to call surgeon office or pre surgery nurse liaison [phone] if any additional questions.
--- NOTE | 2022-06-21 13:27 | P.PNAN_ITS ---
Anes - Initial Pre Proc Eval Procedure: Operation Date: 06/22/22 08:15 Proposed Procedures p Cystoscopy, Urethral Dilatation with Possible Internal Urethrotomy - Joey Matias MD Date/Time: 06/21/22 13:27 Surgeon: Joey Matias MD Pre Op Diagnosis: Prostate Ca, Urethral Bulbous Stricture Patient Data Age: 72 Gender: M Height: 1.73 m Weight: 81.81 kg Allergies Allergy/AdvReac Type Severity Reaction Status Date / Time No Known Allergies Allergy Unknown Verified 06/22/22 06:56 Home Medications Medication Instructions Recorded Confirmed Type doxycycline hyclate 100 mg tablet 100 mg PO DAILY 11/23/20 06/22/22 History ascorbic acid (vitamin C) 500 mg 500 mg PO DAILY 10/27/21 06/22/22 History tablet levothyroxine 112 mcg tablet 112 mcg PO DAILY #90 tabs 01/02/22 06/22/22 Rx B Complex 1 tablet PO DAILY 01/24/22 06/22/22 History lisinopril 20 mg tablet 20 mg PO DAILY #90 tabs 02/27/22 06/22/22 Rx rosuvastatin 20 mg tablet 20 mg PO DAILY #90 tabs 05/07/22 06/22/22 Rx Patient hx anesthesia problems: none Family hx anesthesia problems: none Results Review: All pre-operative results and documents have been reviewed as part of the pre- operative evaluation. [facility] Past Medical History Medical History (Updated 06/21/22 @ 13:28 by Peter Ramos MD) Anxiety disorder due to medical condition BMI 26.0-26.9,adult BMI 28.0-28.9,adult Bulbous urethral stricture H/O prostate cancer Hematochezia Hx of malignant neoplasm of prostate Hx of tongue cancer Hyperlipidemia Hypertension Hypothyroid Hypothyroidism Osteomyelitis of mandible Prostate cancer Pure hypercholesterolemia Surgical History Surgical History H/O cystoscopy Family History Family History Father Diabetes mellitus Hypertension Acute angina Coronary artery disease Mother Congestive heart failure Sibling Myocardial infarction Social History Social History Smoking status: Never smoker Tobacco type: cigarettes Second hand tobacco smoke exposure: No Alcohol intake: current Drinks per week: 21 Substance use: never Substance use type: does not use Living arrangements: with family Additional occupation/education comments: [employer] Gender identity (if verbalized by the patient): Male Spiritual care concerns: No Anes - Eval Final PreProcedure Day of Procedure 06/21/22 13:27 Patient weight: overweight Heart: regular rate and rhythm Lungs: decreased breath sounds Airway: Mallampati scale class II Neurological: alert and oriented Last oral intake: >/= 8 hours ASA classification: III Emergent: no Anesthetic plan: proceed Anesthesia type and monitoring: general LMA and standard monitoring Results Review: All pre-operative results and documents have been reviewed as part of the pre- operative evaluation. Informed Consent: The patient's anesthetic plan and its attendant risks and benefits were discussed with the patient/family/POA. Questions were solicited and answers provided to the satisfaction of the patient/family/POA.
[2022-06-22 06:27] VITALS: BP 113/66; PULSE 59; RESP 18; TEMP 36.2; O2SAT 100
--- NOTE | 2022-06-22 06:44 | WPDHPUPDATE1 ---
History and Physical Update Update Date/Time: 06/22/22 06:44 History and Physical has been reviewed, including an updated exam of the patient. There are NO changes in the patient's condition. Risks, benefits, and alternatives have been discussed and questions answered. Patient agrees to proceed with procedure.
[2022-06-22] MEDS: LACTATED RINGERS 1,000 ML 30 ML IV CONT (06:46)
[2022-06-22] MEDS: ceFAZolin 2 GM/D5W 50 ML 2 GM/50 ML BAG IVPB (08:07)
[2022-06-22] MEDS: LIDOCAINE HCL 2% GEL UROJET 10 ML PKG MUCOUS MEM (08:19)
[2022-06-22 08:33] VITALS: BP 123/68; PULSE 61; RESP 16; O2SAT 96
--- NOTE | 2022-06-22 08:37 | P.OP_ITS ---
Procedure Note - Detailed Date of Procedure 06/22/22 Pre-op Diagnosis Prostate Ca, Bulbous Urethral Stricture Post-op Diagnosis Same Procedure Performed Optical internal urethrotomy Surgeon Joey Matias MD Description of Procedure The patient was brought to the operative suite where he was prepped and draped in a routine sterile fashion while in a dorsal lithotomy position after the uneventful administration of systemic sedation by the anesthesia department. 2% Lidocaine was placed in the urethra and allowed to stand for an appropriate period of time. Cystoscopy was undertaken with a 19F rigid cystoscope. He has a moderately constricting stricture of the bulbous urethra. The bladder itself was endoscopically normal without foreign body or neoplasm. The bladder mucosa was without hyperemia. There was a single orthotopic ureteral orifice bilaterally with clear reflex of urine. Using the optical urethrotome, I inci sed the strictured urethra at the 12 o'clock position care taken to avoid injury to the membranous urethra. An 18F Lindsey catheter was placed, the bladder was emptied and the patient was taken to the recovery room in good condition. Drains Yes Packing No Pathology Yes Complications No immediate complications Disposition PACU
[2022-06-22 09:00] VITALS: BP 134/69; PULSE 63; RESP 16; O2SAT 99
[2022-06-22 09:30] VITALS: BP 151/83; PULSE 53; RESP 16; O2SAT 100
[2022-06-22 09:55] VITALS: BP 160/69; PULSE 66; RESP 16; O2SAT 100
--- NOTE | 2022-06-22 10:19 | SUR.PHASEII ---
1005 PT MEETS ANESTHESIA DISCHARGE CRITERIA. PT DRESSED & WAITING FOR RIDE HOME.
== END 2022-06-22 12:33 | disposition home or self-care (01) ==
PROVIDERS: PCP Family Medicine; Visit Provider Urology
PROC: 0T7D8ZZ Dilation of Urethra, Via Natural or Artificial Opening Endoscopic (ICD-10-PCS; CPT 52281; principal; 2022-06-22 08:15)
DX: N35.912 Unspecified bulbous urethral stricture, male (principal); C61 Malignant neoplasm of prostate; E03.9 Hypothyroidism, unspecified; F41.9 Anxiety disorder, unspecified; K92.1 Melena; E78.5 Hyperlipidemia, unspecified; I10 Essential (primary) hypertension; E78.00 Pure hypercholesterolemia, unspecified; M86.9 Osteomyelitis, unspecified; N52.35 Erectile dysfunction following radiation therapy; R30.0 Dysuria; R31.0 Gross hematuria; R31.29 Other microscopic hematuria; R32 Unspecified urinary incontinence; R35.0 Frequency of micturition; R35.1 Nocturia; R39.11 Hesitancy of micturition; R39.15 Urgency of urination; R97.20 Elevated prostate specific antigen [PSA]
CPT/HCPCS: 52276; A9270; C1769; J0690; J2704; J3010; J7120

== ENCOUNTER 2022-08-16 09:23 | Outpatient (CLI) | payer MEDICARE, SELFPAY ==
--- NOTE | ~2022-08-16 | CT_ITS ---
EXAMINATION: CT abdomen pelvis wo con DATE: 08/16/2022 09:45 INDICATION: Gross hematuria. History of prostate carcinoma. TECHNIQUE: Computed tomography (CT) of the abdomen and pelvis was performed without intravenous contr ast. Automated exposure control and iterative reconstruction technique were employed. Exam dose: 551 .36 mGy-cm total exam DLP. COMPARISON: 10/2020 CT abdomen pelvis FINDINGS: Normal heart size. No pericardial or pleural effusion. The lung bases are clear. Occasional calcified pulmonary granulomas. There is a small sliding hiatal hernia. No hepatic, splenic, pancreatic, adrenal or renal solid space occupying mass lesion is detected. No bile duct or pancreatic duct dilatation. No urinary tract calculus or hydroureteronephrosis. 12 mm right renal cyst. 6.5 cm left renal cyst. Normal appendix. There are multiple colonic diverticula. No evidence of diverticulitis. No bowel o bstruction or intraperitoneal free air. Prostate enlargement. Prostate radiopaque seeds. There is diffuse bladder wall thickening, likely due to bladder outlet obstruction due to prostate enlargement. Multilevel severe degenerative disc disease of the lumbar spine, no suspicious osteolytic or osteobla stic lesions are noted. IMPRESSION: Prostate enlargement and radiopaque seeds Diffuse bladder wall thickening, likely due to prostatic enlargement; cystitis is not excluded Renal cysts Small sliding hiatal hernia Reviewed, dictated and finalized at [facility] Reviewed, dictated and finalized at [facility].
== END 2022-08-16 09:24 | disposition home or self-care (01) ==
PROVIDERS: PCP Family Medicine; Visit Provider Urology
DX: R31.0 Gross hematuria (principal); N40.0 Benign prostatic hyperplasia without lower urinary tract symptoms; N28.1 Cyst of kidney, acquired; K44.9 Diaphragmatic hernia without obstruction or gangrene
CPT/HCPCS: 74176

== ENCOUNTER 2022-12-05 01:52 | Day surgery (SDC) | payer MEDICARE, SELFPAY ==
[2022-11-21 09:22] VITALS: BMI 26.4
[2022-12-05 06:30] VITALS: BP 119/69; PULSE 74; RESP 18; TEMP 36.2; O2SAT 99
--- NOTE | 2022-12-05 06:44 | WPDANESEPPF ---
Anes - Initial Pre Proc Eval Procedure: Operation Date: 12/05/22 07:30 Proposed Procedures p Colonoscopy - Mao Resendiz MD Date/Time: 12/05/22 06:44 Surgeon: Mao Resendiz MD Pre Op Diagnosis: hx colon polyps Patient Data Age: 72 Gender: M Height: 1.73 m Weight: 80.9 kg Last Vital Signs Temp 36.2 C L 12/05/22 06:30 Pulse 74 12/05/22 06:30 Resp 18 12/05/22 06:30 BP 119/69 12/05/22 06:30 Pulse Ox 99 12/05/22 06:30 O2 Del Method Room Air 12/05/22 06:30 Allergies Allergy/AdvReac Type Severity Reaction Status Date / Time No Known Allergies Allergy Unknown Verified 12/05/22 06:29 Home Medications Medication Instructions Recorded Confirmed Type doxycycline hyclate 100 mg tablet 100 mg PO DAILY 11/23/20 11/21/22 History ascorbic acid (vitamin C) 500 mg 500 mg PO DAILY 10/27/21 11/21/22 History tablet levothyroxine 112 mcg tablet 112 mcg PO DAILY #90 tabs 01/02/22 11/21/22 Rx B Complex 1 tablet PO DAILY 01/24/22 11/21/22 History rosuvastatin 20 mg tablet 20 mg PO DAILY #90 tabs 05/07/22 11/21/22 Rx lisinopril 20 mg tablet 20 mg PO DAILY #90 tabs 11/06/22 11/21/22 Rx Patient hx anesthesia problems: none Family hx anesthesia problems: none Results Review: All pre-operative results and documents have been reviewed as part of the pre-operative evaluation. [facility] Past Medical History Medical History (Updated 12/05/22 @ 06:44 by Anibal Goff MD) Anxiety disorder due to medical condition BMI 26.0-26.9,adult BMI 27.0-27.9,adult BMI 28.0-28.9,adult 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 H/O prostate cancer Hematochezia Hx of malignant neoplasm of prostate Hx of tongue cancer Hyperlipidemia Hypertension Hypothyroid Hypothyroidism Osteomyelitis of mandible Prostate cancer Pure hypercholesterolemia Surgical History Surgical History H/O cystoscopy Family History Family History Father Diabetes mellitus Hypertension Acute angina Coronary artery disease Heart disease Mother Congestive heart failure Sibling Myocardial infarction Heart disease Sibling No problems noted. Social History Social History Smoking status: Never smoker Second hand tobacco smoke exposure: No Alcohol intake: current Drinks per week: 21 Alcohol use details: 3 beers per day Substance use: never Substance use type: does not use Lack of Transportation: YES Lack of Food: Never True Current Housing: I Have Housing Concerned About Future Housing: No Difficulty Paying Gas/Electric Bills: No Difficulty Paying for Meds: No Currently Unemployed: No Education: Bachelor's Degree Difficulty w/ Childcare or Family Care: No Living arrangements: with family Occupation/Education: retired Additional occupation/education comments: [employer] Gender identity (if verbalized by the patient): Male Spiritual care concerns: No Anes - Eval Final PreProcedure Day of Procedure 12/05/22 06:44 Patient weight: overweight Heart: regular rate and rhythm Lungs: clear to auscultation Airway: Mallampati scale class II and other (base of tongue resection, madible bone graft, radiation) Neurological: alert and oriented Last oral intake: >/= 8 hours ASA classification: III Emergent: no Anesthetic plan: proceed Anesthesia type and monitoring: general GIVS and standard monitoring Results Review: All pre-operative results and documents have been reviewed as part of the pre-operative evaluation. Informed Consent: The patient's anesthetic plan and its attendant risks and benefits were discussed with the patient/family/POA. Questions were solicited and answers provided to the satisfaction of the patient/family/POA.
[2022-12-05] MEDS: LACTATED RINGERS 1,000 ML 150 ML IV CONT (07:12)
--- NOTE | 2022-12-05 07:50 | PM.HPGS ---
History of Present Illness History of Present Illness Consent: Risks, benefits, and alternatives have been discussed and questions answered. Patient agrees to proceed with procedure. Chief complaint: hx colon polyps Narrative: Angel Vargas is a 72 year old male with colon polyps in 2019 Review of Systems Constitutional: Constitutional: Denies headache(s) and Denies weakness Eyes: Eyes: Denies blurry vision ENT: Reports Normal hearing present, Denies headache(s) and Denies neck pain Cardiovascular: Cardiovascular: Denies chest pain and Denies dyspnea Respiratory: Respiratory: Denies dyspnea Gastrointestinal: Gastrointestinal: Reports no additional gastrointestinal complaints Genitourinary: Genitourinary: Denies dysuria Musculoskeletal: Musculoskeletal: Denies neck pain Integumentary/Breasts: Skin/Breast: Denies dry skin Neurologic: Reports Normal hearing present, Denies headache(s) and Denies weakness Psychiatric: Psychiatric: Denies anxiety Endocrine: Endocrine: Denies change in body appearance Hematologic/Lymphatic: Hematologic/Lymphatic: Denies easy bleeding Allergic/Immunologic: Allergic/Immunologic: Denies urticaria PMF Past Medical History Medical History (Updated 12/05/22 @ 07:51 by Mao Resendiz MD) Adenomatous colon polyp Anxiety disorder due to medical condition BMI 26.0-26.9,adult BMI 27.0-27.9,adult BMI 28.0-28.9,adult 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 H/O prostate cancer Hematochezia Hx of malignant neoplasm of prostate Hx of tongue cancer Hyperlipidemia Hypertension Hypothyroid Hypothyroidism Osteomyelitis of mandible Prostate cancer Pure hypercholesterolemia Surgical History Surgical History H/O cystoscopy Family History Family History Father Diabetes mellitus Hypertension Acute angina Coronary artery disease Heart disease Mother Congestive heart failure Sibling Myocardial infarction Heart disease Sibling No problems noted. Social History Social History Smoking status: Never smoker Second hand tobacco smoke exposure: No Alcohol intake: current Drinks per week: 21 Alcohol use details: 3 beers per day Substance use: never Substance use type: does not use Lack of Transportation: YES Lack of Food: Never True Current Housing: I Have Housing Concerned About Future Housing: No Difficulty Paying Gas/Electric Bills: No Difficulty Paying for Meds: No Currently Unemployed: No Education: Bachelor's Degree Difficulty w/ Childcare or Family Care: No Living arrangements: with family Occupation/Education: retired Additional occupation/education comments: [employer] Gender identity (if verbalized by the patient): Male Spiritual care concerns: No Meds Home Medications and Allergies Home Medications Medication Instructions Recorded Confirmed Type doxycycline hyclate 100 mg tablet 100 mg PO DAILY 11/23/20 11/21/22 History ascorbic acid (vitamin C) 500 mg 500 mg PO DAILY 10/27/21 11/21/22 History tablet levothyroxine 112 mcg tablet 112 mcg PO DAILY #90 tabs 01/02/22 11/21/22 Rx B Complex 1 tablet PO DAILY 01/24/22 11/21/22 History rosuvastatin 20 mg tablet 20 mg PO DAILY #90 tabs 05/07/22 11/21/22 Rx lisinopril 20 mg tablet 20 mg PO DAILY #90 tabs 11/06/22 11/21/22 Rx Allergies Allergy/AdvReac Type Severity Reaction Status Date / Time No Known Allergies Allergy Unknown Verified 12/05/22 06:29 Vital Signs Vital Signs - 24 hr 12/05/22 06:30 Temperature 97.1 F L Pulse Rate 74 Respiratory Rate 18 Blood Pressure 119/69 Pulse Oximetry 99 Oxygen Delivery Room Air Exam Const: General: comfortable and no acute distress HENMT: Face/Nose/Sinus: Normal nares present E
[2022-12-05 08:15] VITALS: BP 95/64; PULSE 74; RESP 26; O2SAT 96
[2022-12-05 08:25] VITALS: BP 111/68; PULSE 74; RESP 19; O2SAT 99
[2022-12-05 08:35] VITALS: BP 128/78; PULSE 64; RESP 12; O2SAT 98
== END 2022-12-05 08:48 | disposition home or self-care (01) ==
PROVIDERS: PCP Family Medicine; Visit Provider Internal Medicine Gastroenterology
PROC: 0DJD8ZZ Inspection of Lower Intestinal Tract, Via Natural or Artificial Opening Endoscopic (ICD-10-PCS; CPT 45378; principal; 2022-12-05 07:30)
DX: Z12.11 Encounter for screening for malignant neoplasm of colon (principal); D12.4 Benign neoplasm of descending colon; K57.30 Diverticulosis of large intestine without perforation or abscess without bleeding; I10 Essential (primary) hypertension; E03.9 Hypothyroidism, unspecified; E78.00 Pure hypercholesterolemia, unspecified; Z85.46 Personal history of malignant neoplasm of prostate; Z85.810 Personal history of malignant neoplasm of tongue
CPT/HCPCS: 45385; 88305; J2704; J7120

== ENCOUNTER 2023-05-21 06:01 | Emergency (ER) | payer MEDICARE, SELFPAY ==
[2023-05-21 06:04] VITALS: BP 141/71; PULSE 95; RESP 19; TEMP 36.3; O2SAT 100
[2023-05-21] MEDS: LORazepam INJ (*CRX) 2 MG/ML VIAL 0.5 MG IV PUSH (06:30)
--- NOTE | 2023-05-21 06:30 | ED.GENADULT ---
HPI - General Adult General Chief complaint: Urogenital-Male <Gucci Luciano MD - Last Filed: 05/21/23 06:54> Stated complaint: Unable to urinate <Gucci Luciano MD - Last Filed: 05/21/23 06:54> Time Seen by Provider: 05/21/23 06:19 <Gucci Luciano MD - Last Filed: 05/21/23 06:54> History of Present Illness HPI narrative: Patient 72-year-old gentleman who presents emerged department with chief complaint of hematuria and difficulty urinating. Patient reports he has history of prostate cancer and has had urethral stricture before in the past patient reports that he started having blood in his urine and reports that that is not an uncommon thing and states that it is continued and he feels as though he is developed a clot in his bladder as he has not been able to urinate well and just now was able to pass a small amount of urine. Patient states that he is not on any blood thinners reports that he sees one of our urologist. <Gucci Luciano MD - Last Filed: 05/21/23 06:54> Related Data Home medications: Home Medications Medication Instructions Recorded Confirmed ascorbic acid (vitamin C) 500 mg 500 mg PO DAILY 10/27/21 02/16/23 tablet B Complex 1 tablet PO DAILY 01/24/22 02/16/23 <Gucci Luciano MD - Last Filed: 05/21/23 06:54> Allergies/adverse reactions: Allergies Allergy/AdvReac Type Severity Reaction Status Date / Time No Known Allergies Allergy Unknown Verified 05/21/23 16:08 <Gucci Luciano MD - Last Filed: 05/21/23 06:54> Review of Systems Review of Systems: A 10 system review of systems was completed on the patient and is negative except for what is stated in the HPI. Nursing and ancillary documentation was reviewed. <Gucci Luciano MD - Last Filed: 05/21/23 06:54> [facility] Past Medical History Medical History: Medical History Adenomatous colon polyp Anxiety disorder due to medical condition BMI 26.0-26.9,adult BMI 27.0-27.9,adult BMI 28.0-28.9,adult 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 H/O prostate cancer radiation treatment several 3-4 years ago Hematochezia Hx of malignant neoplasm of prostate Hx of tongue cancer radiation Hyperlipidemia Hypertension Hypothyroid Hypothyroidism Osteomyelitis of mandible Prostate cancer Pure hypercholesterolemia <Gucci Luciano MD - Last Filed: 05/21/23 06:54> Surgical History Surgical History: Surgical History H/O cystoscopy History of mandibular surgery S/P colonoscopy S/P hernia repair <Gucci Luciano MD - Last Filed: 05/21/23 06:54> Family History Family History: Family History Father Diabetes mellitus Hypertension Acute angina Coronary artery disease Heart disease Mother Congestive heart failure Sibling Myocardial infarction Heart disease Sibling No problems noted. 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
[2023-05-21 06:44] LABS: Basophils Percent Auto 0.8 % (0.2-1.2); Eosinophils Absolute Auto 0.1 K/mm3 (0-0.3); Eosinophils Percent Auto 2.4 % (0-4.4); Hematocrit 33.9 % (42.0-52.0); Hemoglobin 11.7 g/dL (14.0-18.0); Immature Granulocyte Absolute 0.02 K/mm3 (0.00-0.031); Immature Granulocyte Percent A 0.4 % (0-0.5); Lymphocytes Absolute Auto 0.74 K/mm3 (0.9-3.2); Mean Corpuscular HGB Conc 34.5 g/dl (32-36); Mean Corpuscular Hemoglobin 32.3 pg (26-34); Mean Corpuscular Volume 93.6 fl (80-100); Mean Platelet Volume 9.3 fl (7.4-10.4); Monocytes Absolute Auto 0.5 K/mm3 (0.1-0.6); Monocytes Percent Auto 10.1 % (2.6-8.5); Neutrophils Absolute Auto 3.5 K/mm3 (1.3-6.7); Neutrophils Percent Auto 71.3 % (45.5-73.1); Platelet Count Result 227 k/mm3 (150-375); Red Blood Count 3.62 M/mm3 (4.6-6.20); Red Cell Distribution Width 13.3 % (11.5-14.5); White Blood Count 4.9 K/mm3 (4.5-10.0)
[2023-05-21 06:50] LABS: Alanine Aminotransferase 23 U/L (6-50); Albumin Level 4.2 g/dL (3.5-5.1); Alkaline Phosphatase 41 U/L (38-126); Anion Gap 6 mmol/L (8-16); Aspartate Amino Transferase 29 U/L (17-59); Bilirubin,Total 0.6 mg/dL (0.2-1.3); Blood Urea Nitrogen 27 mg/dL (9-20); Calcium 9.2 mg/dL (8.4-10.2); Carbon Dioxide 23 mmol/L (22-30); Chloride 105 mmol/L (98-107); Estimated Glomerular Filt Rate > 60; Glucose 107 mg/dL (65-110); Potassium 4.1 mmol/L (3.4-5.0); Sodium 134 mmol/L (137-145)
[2023-05-21 06:54] LABS: Prothrombin Time 13.6 Seconds (11.1-14.7)
[2023-05-21 07:07] LABS: Appearance Urine Turbid (Clear); Color Urine Red (Yellow)
[2023-05-21 07:12] LABS: Bacteria Urine None Seen /hpf; Need Manual Microscopic Need Manual; Non Pathogenic Casts 0-2; Squamous Epithelial Cell Urine None seen /hpf (Few); WBC Urine 51-100 /hpf
[2023-05-21 07:14] LABS: Add Urine Microscopic? YES; RBC Urine 51-100 /hpf (0-2)
[2023-05-21 07:35] VITALS: BP 116/71; PULSE 70; RESP 20; O2SAT 97
[2023-05-21 08:51] VITALS: BP 137/71; PULSE 67; RESP 18; O2SAT 99
== END 2023-05-21 08:56 | disposition home or self-care (01) ==
PROVIDERS: Emergency Medicine; Emergency Provider Emergency Medicine; PCP Family Medicine
DX: N39.0 Urinary tract infection, site not specified (principal); R31.0 Gross hematuria; I10 Essential (primary) hypertension; E78.00 Pure hypercholesterolemia, unspecified; E03.9 Hypothyroidism, unspecified; Z86.010 Personal history of colon polyps; Z85.810 Personal history of malignant neoplasm of tongue; Z85.46 Personal history of malignant neoplasm of prostate
CPT/HCPCS: 36415; 51700; 80053; 81001; 85025; 85610; 85730; 87086; 96361; 96374; 99284; J2060

== ENCOUNTER 2023-05-21 10:24 | Observation (INO) | payer MEDICARE, SELFPAY ==
[2023-05-21] VITALS (12 sets, daily range): BP systolic 127–159; BP diastolic 45–78; PULSE 70–91; RESP 13–18; TEMP 36.2–37.1; O2SAT 100
--- NOTE | ~2023-05-21 | US_ITS ---
EXAMINATION: US pelvic limited DATE: 05/21/2023 14:53 INDICATION: Hematuria. TECHNIQUE: Multiple sonographic images of the pelvis were obtained. COMPARISON: CT abdomen and pelvis 08/16/2022 FINDINGS: There is a Lindsey catheter in the bladder. There is echogenic material around the Lindsey catheter, cons istent with hematoma. IMPRESSION: 1. Material in the bladder, consistent with hematoma. Reviewed, dictated and finalized at location A.
--- NOTE | 2023-05-21 11:26 | ED.MALEGU ---
HPI - Male Genitourinary General Chief complaint: Urogenital-Male Stated complaint: LEAKY CATHETER Time Seen by Provider: 05/21/23 11:22 History of Present Illness HPI Narrative: Pt was discharged from here this morning after flushing with 3 way catheter. Pt was passing clear urine at time of discharge. Pt went home and had BM and then noticed blood coming around catheter and blood in bag. Related Data Home Medications Medication Instructions Recorded Confirmed ascorbic acid (vitamin C) 500 mg 500 mg PO DAILY 10/27/21 02/16/23 tablet B Complex 1 tablet PO DAILY 01/24/22 02/16/23 Allergies Allergy/AdvReac Type Severity Reaction Status Date / Time No Known Allergies Allergy Unknown Verified 05/21/23 16:08 Review of Systems Review of Systems: All systems reviewed & are unremarkable except as noted in HPI and below PMFSH Past Medical History Medical History Adenomatous colon polyp Anxiety disorder due to medical condition BMI 26.0-26.9,adult BMI 27.0-27.9,adult BMI 28.0-28.9,adult 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 H/O prostate cancer radiation treatment several 3-4 years ago Hematochezia Hx of malignant neoplasm of prostate Hx of tongue cancer radiation Hyperlipidemia Hypertension Hypothyroid Hypothyroidism Osteomyelitis of mandible Prostate cancer Pure hypercholesterolemia Surgical History Surgical History H/O cystoscopy History of mandibular surgery S/P colonoscopy S/P hernia repair Family History Family History Father Diabetes mellitus Hypertension Acute angina Coronary artery disease Heart disease Mother Congestive heart failure Sibling Myocardial infarction Heart disease Sibling No problems noted. 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 Smoking status: Never smoker Second hand tobacco smoke exposure: No Alcohol intake: current Drinks per week: 21 Alcohol use details: 3 beers per day Substance use: never Substance use type: does not use Lack of Transportation: YES Lack of Food: Never True Current Housing: I Have Housing Concerned About Future Housing: No Difficulty Paying Gas/Electric Bills: No Difficulty Paying for Meds: No Currently Unemployed: No Education: Bachelor's Degree Difficulty w/ Childcare or Family Care: No Living arrangements: with family Occupation/Education: retired Additional occupation/education comments: [employer] Gender identity (if verbalized by the patient): Male Spiritual care concerns: No Exam Const: General: healthy appearing Nutritional Appearance: well nourished Limitations: no limitations Resp: Effort & Inspection: normal respiratory effort Auscultation: clear to auscultation bilaterally Cardio: Rate: regular rate Rhythm: regular rhythm GI: GI Palp: Yes Soft to palpation Auscultation: normal bowel sounds : General: Yes bladder normal to palpation Penis: Yes normal penis Other: blood at meatus and in bag Urinary Catheter: Urinary Catheter: urine red and urine with clots Skin: General skin exam: normal color Wounds: no wounds Neuro: General: patient oriented x3, moves all extremities, no meningeal signs and no focal motor deficits Speech: normal speech Extrem: General: normal to inspection and no clubbing, cyanosis or edema Psych: Mental Status: mental status grossly normal Affect: normal affect Attitude: cooperative Course Vital Signs Vital signs: Vital Signs Temperature 98.0 F 05/21/23 10:35 Pulse Rate 91 05/21/23 10:35 Respiratory Rate 18 05/21/23 10:35 Blood Pressure 132/72 05/21/23 10:35 Pulse Oximetry 100 05/21/23 10:35 Oxyge
[2023-05-21] MEDS: CIPROFLOXACIN 500 MG TAB PO ×2 (12:30→20:52)
--- NOTE | 2023-05-21 12:59 | PC.NURSE ---
novoa cath noted to be draining blood. cath irrigated with 500 cc saline. small amount of clot noted. fluid only can be removed when tubing attached. when trying to pull fluid out with syringe appears to be something blocking cath tip inside of bladder. once syringe pressure is removed or fluid inserted in the other port blood tinged fluid with drain. pt states this is what happened the last time he had to have clots evacuated from his bladder.
--- NOTE | 2023-05-21 14:18 | PM.IMHP ---
H&P: HPI History of Present Illness Date/Time: 05/21/23 14:18 Chief Complaint: Hematuria Narrative: This is a 72-year-old male patient who had a history of prostate cancer and received several radiation treatment 3-4 years ago. The patient returned to the emergency room after being care earlier this morning. Patient was having some the 3 way catheter was placed and flushed earlier this morning. The patient was draining clear urine when he went home. However the patient came back to the room because nothing was coming out of the 3 way in the blood was leaking around the catheter in the urethra. Urology was consulted. See consult note. The patient was empirically started on p.o. Cipro. He was given IV fluids and felt non the emergency room. His 3 way catheter was flushed. He was also given [place]. Patient's H&H is 11.7 and 33.9. Previously was normal. Sodium slightly low at 134. The patient is being admitted to observation status on the date of service 05/21/2023. Review of Systems Review of Systems: All systems reviewed & are unremarkable except as noted in HPI and below Constitutional: Constitutional: Reports as per HPI and Reports no additional constitutional complaints Eyes: Eyes: Reports as per HPI and Reports no additional eye complaints ENT: Reports system reviewed and no additional complaints, except as documented and Reports Normal hearing present Cardiovascular: Cardiovascular: Reports no additional cardiovascular complaints Respiratory: Respiratory: Reports no additional respiratory complaints and Reports no additional respiratory complaints Gastrointestinal: Gastrointestinal: Reports as per HPI and Reports no additional gastrointestinal complaints Musculoskeletal: Musculoskeletal: Reports no additional musculoskeletal complaints Integumentary/Breasts: Skin/Breast: Reports system reviewed and no additional complaints, except as docu and Reports as per HPI Neurologic: Reports system reviewed and no additional complaints, except as documented, Reports as per HPI and Reports Normal hearing present Psychiatric: Psychiatric: Reports no additional psychiatric complaints and Reports as per HPI Endocrine: Endocrine: Reports no additional endocrine complaints Hematologic/Lymphatic: Hematologic/Lymphatic: Reports no additional hematologic/lymphatic complaints Allergic/Immunologic: Allergic/Immunologic: Reports no additional allergic/immunologic complaints PMFSH Past Medical History Medical History Adenomatous colon polyp Anxiety disorder due to medical condition BMI 26.0-26.9,adult BMI 27.0-27.9,adult BMI 28.0-28.9,adult 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 H/O prostate cancer radiation treatment several 3-4 years ago Hematochezia Hx of malignant neoplasm of prostate Hx of tongue cancer radiation Hyperlipidemia Hypertension Hypothyroid Hypothyroidism Osteomyelitis of mandible Prostate cancer Pure hypercholesterolemia Surgical History Surgical History (Updated 05/21/23 @ 17:17 by Isaura Jennings NP) H/O colonoscopy with polypectomy H/O cystoscopy History of mandibular surgery S/P colonoscopy S/P hernia repair Family History Family History Father Diabetes mellitus Hypertension Acute angina Coronary artery disease Heart disease Mother Congestive heart failure Sibling Myocardial infarction Heart disease Sibling No problems noted. Social History Social History (Updated 05/21/23 @ 17:18 by Isaura Jennings NP) Social History: He is with 1 child. 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 Lifelong nonsmoker. His is the durable power civil rights attorney for healthcare. Code status full code Smoking status: Never smoker Second hand tobacco smoke exposure: No Alcohol intake: current Drinks per
--- NOTE | 2023-05-21 15:27 | WPDURCON ---
Assessment and Plan Assessment and plan (1) Gross hematuria: Code(s): R31.0 - Gross hematuria Status: Acute Assessment and Plan: I cannot reliably irrigate his catheter. He has several large clots in his bladder on ultrasound. I will take him to the operating room for evacuation of his clots. Him and his were both in agreement. 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 He understands risks of bleeding, infection, inability to resolve the bleeding issue. He agrees to proceed (2) Hx of malignant neoplasm of prostate: Code(s): Z85.46 - Personal history of malignant neoplasm of prostate Status: Acute Assessment and Plan: Status post radiation therapy Urology Consult Note HPI Date Seen: 05/21/23 Primary Care Provider: Les Mason MD Consult Narrative Narrative: Angel Vargas is a 72 year old male he is a patient of 1 of my partners. He has history of prostate cancer. He had radiation therapy a few years ago. He has had intermittent gross hematuria ever since. On 1 occasion had to be taken the operating room for evacuation of clots. He has had recurrent bleeding for the last day or so. He was in the emergency room this morning. A Lindsey catheter was placed knee was irrigated. He was sent home in stable condition. He returns this afternoon with grossly bloody urine. Ultrasound shows several clots in his bladder. I attempted to irrigate his catheter but could not do reliably. I will taken to the operating room for evacuation of clots. He last ate over 6 hours ago. He is not on blood thinners Review of Systems Review of Systems: All systems reviewed & are unremarkable except as noted in HPI and below PMFSH Past Medical History Medical History Adenomatous colon polyp Anxiety disorder due to medical condition BMI 26.0-26.9,adult BMI 27.0-27.9,adult BMI 28.0-28.9,adult 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 H/O prostate cancer radiation treatment several 3-4 years ago Hematochezia Hx of malignant neoplasm of prostate Hx of tongue cancer radiation Hyperlipidemia Hypertension Hypothyroid Hypothyroidism Osteomyelitis of mandible Prostate cancer Pure hypercholesterolemia Surgical History Surgical History H/O cystoscopy History of mandibular surgery S/P colonoscopy S/P hernia repair Family History Family History Father Diabetes mellitus Hypertension Acute angina Coronary artery disease Heart disease Mother Congestive heart failure Sibling Myocardial infarction Heart disease Sibling No problems noted. 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 Smoking status: Never smoker Second hand tobacco smoke exposure: No Alcohol intake: current Drinks per week: 21 Alcohol use details: 3 beers per day Substance use: never Substance use type: does not use Lack of Transportation: YES Lack of Food: Never True Current Housing: I Have Housing Concerned About Future Housing: No Difficulty Paying Gas/Electric Bills: No Difficulty Paying for Meds: No Currently Unemployed: No Education: Bachelor's Degree Difficulty w/ Childcare or Family Care: No Living arrangements: with family Occupation/Education: retired Additional occupation/education comments: [employer] Gender identity (if verbalized by the patient): Male Spiritual care concerns: No Meds Home Medications and Allergies Home Medications Medication Instructions Recorded Confirmed Type ascorbic acid (vitamin C) 500 mg 500 mg PO DAILY 10/27/21 02/16/23 History tablet B Complex 1 tablet PO DAILY 01/24/22 02/16/23 History levothyroxine 112 mcg tablet
--- NOTE | 2023-05-21 15:33 | WPDHPUPDATE1 ---
History and Physical Update Update Date/Time: 05/21/23 15:34 History and Physical has been reviewed, including an updated exam of the patient. There are NO changes in the patient's condition. Risks, benefits, and alternatives have been discussed and questions answered. Patient agrees to proceed with procedure.
[2023-05-21] MEDS: LACTATED RINGERS 1,000 ML 30 ML IV CONT (15:40)
--- NOTE | 2023-05-21 15:59 | WPDANESEPPF ---
Anes - Initial Pre Proc Eval Procedure: Operation Date: 05/21/23 16:00 Proposed Procedures p Cystoscopy, Evacuation Bladder Clots - Fredy Evans MD Date/Time: 05/21/23 15:59 Surgeon: Fredy Evans MD Pre Op Diagnosis: LEAKY CATHETER Patient Data Age: 72 Gender: M Height: 1.73 m Weight: 84 kg Last Vital Signs Temp 36.7 C 05/21/23 10:35 Pulse 70 05/21/23 15:40 Resp 16 05/21/23 15:40 BP 143/78 H 05/21/23 15:40 Pulse Ox 100 05/21/23 15:40 O2 Del Method Room Air 05/21/23 10:35 Allergies Allergy/AdvReac Type Severity Reaction Status Date / Time No Known Allergies Allergy Unknown Verified 05/21/23 06:06 Home Medications Medication Instructions Recorded Confirmed Type ascorbic acid (vitamin C) 500 mg 500 mg PO DAILY 10/27/21 02/16/23 History tablet B Complex 1 tablet PO DAILY 01/24/22 02/16/23 History levothyroxine 112 mcg tablet 112 mcg PO DAILY #90 tabs 03/26/23 Rx lisinopril 40 mg tablet 40 mg PO DAILY #90 tabs 03/26/23 Rx rosuvastatin 20 mg tablet 20 mg PO DAILY #90 tabs 04/12/23 Rx ciprofloxacin HCl 500 mg tablet 500 mg PO Q12H #20 tabs 05/21/23 Rx (Cipro) Laboratory Tests 05/21/23 13:36 Blood Type O Positive Antibody Screen Negative Patient hx anesthesia problems: none Family hx anesthesia problems: none Results Review: All pre-operative results and documents have been reviewed as part of the pre-operative evaluation. 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 Smoking status: Never smoker Second hand tobacco smoke exposure: No Alcohol intake: current Drinks per week: 21 Alcohol use details: 3 beers per day Substance use: never Substance use type: does not use Lack of Transportation: YES Lack of Food: Never True Current Housing: I Have Housing Concerned About Future Housing: No Difficulty Paying Gas/Electric Bills: No Difficulty Paying for Meds: No Currently Unemployed: No Education: Bachelor's Degree Difficulty w/ Childcare or Family Care: No Living arrangements: with family Occupation/Education: retired Additional occupation/education comments: [employer] Gender identity (if verbalized by the patient): Male Spiritual care concerns: No Anes - Eval Final PreProcedure Day of Procedure 05/21/23 15:59 Patient weight: normal Heart: regular rate and rhythm Lungs: clear to auscultation Airway: Mallampati scale class II Neurological: alert and oriented Last oral intake: >/= 8 hours ASA classification: III Emergent: yes Anesthetic plan: proceed Anesthesia type and monitoring: general LMA and standard monitoring Results Review: All pre-operative results and documents have been reviewed as part of the pre-operative evaluation. Informed Consent
[2023-05-21] MEDS: LIDOCAINE HCL 2% GEL UROJET 10 ML PKG MUCOUS MEM (16:38)
--- NOTE | 2023-05-21 16:53 | W.PM.PROC2 ---
Procedure Note - Detailed Date of Procedure 05/21/23 Pre-op Diagnosis Gross hematuria Post-op Diagnosis Same Procedure Performed Gross hematuria Bladder tumor Surgeon Fredy Evans MD Anesthesia General Indications Seen gentleman who came to emergency room twice today with gross hematuria. His catheter is not able to be irrigated. He has previous history of prostate cancer status post radiation therapy. He is being taken to the operating room for clot evacuation Findings 300 cc of clot evacuated. Two bladder tumors. Less than 2 cm Fulguration of prostate performed Description of Procedure He has correctly identified. Informed consent obtained. From the operating room. He was given general anesthesia. He was placed in dorsal thigh position. He was prepped and draped sterile fashion. He was on appropriate perioperative antibiotics. A time-out performed. I performed cystoscopy. Upon entering the bladder there was a large amount of blood clot seen. I irrigated out the bladder with a Franck syringe. I removed 300 cc of blood clot. I re-examined the bladder once he was clot free. Ureteral orifices were normal. There is moderate trabeculations. There was 2 areas of small bladder tumor. One was on the left lateral wall. One was on the floor the bladder away from the ureteral orifice. These tumors were removed with biopsy forceps. Tumor size was less than 2 cm. I then generously fulgurated the base of the tumors. All fulguration was done away from the orifice. I then examined the rest of the bladder. No active bleeding. I examined the bladder neck and prostate base. There was some bleeding around the bladder neck and the 6 o'clock position of the prostate. This was generously fulgurated. I was happy with hemostasis. I replaced a [address] He was placed on slow CBI. He was awakened transferred to PACU in stable condition Drains Yes Packing No Pathology Yes (Bladder tumor) Condition Stable Disposition PACU
--- NOTE | 2023-05-21 18:05 | ADMGEN ---
This patient, Angel Vargas, was admitted to 2 Medical Room 242-. Patient/family oriented to hospital policies and general routines including ID bracelet, bed and alarms, visiting hours, pain management, procedures, bathroom and other care routines, personal items, smoking policy, room service/diet, and visiting hours. Information on how to activate the Rapid Response Team has been discussed. Patient/Family are encouraged to report perceived risks to care and to ask questions if they do not understand what they are told or what they should do.
[2023-05-21 19:27] LABS: Hematocrit 32.9 % (42.0-52.0)
[2023-05-21] MEDS: oxyBUTYnin CHLORIDE 5 MG TABLET PO (20:52)
[2023-05-21] MEDS: HYDROcodone/acetaminophen (*CRX) 5-325 MG TABLET 1 TAB PO (21:26)
[2023-05-21 23:29] LABS: Hematocrit 30.9 % (42.0-52.0); Hemoglobin 10.5 g/dL (14.0-18.0)
[2023-05-22] VITALS (15 sets, daily range): BP systolic 98–134; BP diastolic 51–81; PULSE 62–75; RESP 16–18; TEMP 36.6–36.9; O2SAT 96–99
[2023-05-22 05:36] LABS: Basophils Percent Auto 0.3 % (0.2-1.2); Eosinophils Percent Auto 0.1 % (0-4.4); Hematocrit 31.5 % (42.0-52.0); Hemoglobin 10.6 g/dL (14.0-18.0); Immature Granulocyte Absolute 0.02 K/mm3 (0.00-0.031); Immature Granulocyte Percent A 0.3 % (0-0.5); Lymphocytes Absolute Auto 0.71 K/mm3 (0.9-3.2); Lymphocytes Percent Auto 10.4 % (18.3-44.2); Mean Corpuscular HGB Conc 33.7 g/dl (32-36); Mean Corpuscular Hemoglobin 32.2 pg (26-34); Mean Corpuscular Volume 95.7 fl (80-100); Mean Platelet Volume 9.3 fl (7.4-10.4); Monocytes Absolute Auto 0.6 K/mm3 (0.1-0.6); Monocytes Percent Auto 8.5 % (2.6-8.5); Neutrophils Absolute Auto 5.5 K/mm3 (1.3-6.7); Neutrophils Percent Auto 80.4 % (45.5-73.1); Platelet Count Result 214 k/mm3 (150-375); Red Blood Count 3.29 M/mm3 (4.6-6.20); Red Cell Distribution Width 13.3 % (11.5-14.5); White Blood Count 6.9 K/mm3 (4.5-10.0)
[2023-05-22] MEDS: LEVOTHYROXINE SODIUM 112 MCG TABLET PO (05:47)
--- NOTE | 2023-05-22 06:06 | WPDUROPN2 ---
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 Urine now clear - will stop CBI and plan voiding trial later this morning. Home this afternoon if voids well (from our standpoint). If discharged today, should f/u in 2-3 weeks. Newly identified papillary urothelial ca. bladder - discussed with pt. Will need surveillance cystoscopy every 3 months for the upcoming year. Subjective Subjective Date/Time Seen: 05/22/23 06:06 Interval history: Comfortable, no complaints Review of Systems Cardiovascular: Cardiovascular: Denies chest pain, Denies lightheadedness, Denies palpitations and Denies dyspnea Respiratory: Respiratory: Denies dyspnea Gastrointestinal: Gastrointestinal: Denies diarrhea, Denies nausea and Denies vomiting Genitourinary: Genitourinary: Denies hematuria and Denies dysuria Endocrine: Endocrine: Denies palpitations Exam Const: General: no acute distress Resp: Effort & Inspection: normal respiratory effort GI: Inspection: non-distended GI Palp: No abdominal tenderness and No Guarding due to palpation present (GI) Auscultation: normal bowel sounds Urinary Catheter: Urinary Catheter: patent and draining and urine clear Objective Data Vital Signs Vital Signs: Vital Signs - 24 hr 05/21/23 10:35 05/21/23 15:40 05/21/23 15:36 Temperature 98.0 F 98.7 F Pulse Rate 91 70 77 Respiratory Rate 18 16 14 Blood Pressure 132/72 143/78 H 158/77 H Pulse Oximetry 100 100 100 Oxygen Delivery Room Air Room Air Oxygen Flow Rate 05/21/23 16:53 05/21/23 17:05 05/21/23 17:20 Temperature 97.5 F L Pulse Rate 88 80 81 Respiratory Rate 14 15 16 Blood Pressure 143/78 H 138/68 131/45 L Pulse Oximetry 100 100 100 Oxygen Delivery Simple Face Mask Simple Face Mask Simple Face Mask Oxygen Flow Rate 6 6 6 05/21/23 17:35 05/21/23 18:05 05/21/23 18:20 Temperature 97.2 F L 97.2 F L Pulse Rate 72 82 72 Respiratory Rate 13 18 18 Blood Pressure 127/61 159/62 H 143/65 H Pulse Oximetry 100 100 100 Oxygen Delivery Room Air Oxygen Flow Rate 05/21/23 18:50 05/21/23 19:18 05/21/23 20:00 Temperature 97.1 F L 97.7 F Pulse Rate 73 76 Respiratory Rate 18 18 Blood Pressure 134/68 139/73 Pulse Oximetry 100 100 Oxygen Delivery Room Air Oxygen Flow Rate 05/21/23 20:00 05/22/23 00:13 05/22/23 00:00 Temperature 98.5 F Pulse Rate 77 68 62 Respiratory Rate 17 Blood Pressure 112/59 L Pulse Oximetry 99 Oxygen Delivery Oxygen Flow Rate 05/22/23 04:13 05/22/23 04:00 Temperature 98.5 F Pulse Rate 65 67 Respiratory Rate 17 Blood Pressure 101/58 L Pulse Oximetry 99 Oxygen Delivery Oxygen Flow Rate Intake/Output Intake/Output: Intake & Output 05/19/23 05/20/23 05/21/23 05/22/23 23:59 23:59 23:59 23:59 Intake Total 0 250 Output Total 1850 400 Balance -1850 -150 Meds/Results Medications: Active Medications Generic Name Dose Route Start Last Admin Trade Name Freq PRN Reason Stop Dose Admin Hydrocodone Bitart/Acetaminophen 1 tab 05/21/23 18:59 05/21/23 21:26 Hydrocodone/Acetaminophen (*Crx) 5-325 Mg Tablet PO 1 tab Q6H PRN Administration PAIN RATED 4-6 Ascorbic Acid 500 mg 05/22/23 09:00 Ascorbic Acid 500 Mg Tablet PO DAILY ANNIE Ciprofloxacin 500 mg 05/21/23 21:00 05/21/23 20:52 Ciprofloxacin 500 Mg Tab PO 500 mg Q12HR ANNIE Administration Docusate Sodium 100 mg 05/21/23 19:00 Docusate Sodium 100 Mg Capsule PO Q12H PRN Constipation Levothyroxine Sodium 112 mcg 05/22/23 06:30 05/22/23 05:47 Levothyroxine Sodium 112 Mcg Tablet PO 112 mcg DAILY@0630 [facility] Administration Lisinopril 40 mg 05/22/23 09:00 Lisinopril 20 Mg Tablet PO DAILY ANNIE Oxybutynin Chloride 5 mg 05/21/23 18:59 05/21/23 20:52 Oxybutynin Chlori
--- NOTE | 2023-05-22 08:33 | PC.NURSE ---
Dr Matias notified of turning cbi back on due to urine bloody.
--- NOTE | 2023-05-22 08:39 | PM.IMPN ---
Progress Note: A&P Assessment and Plan (1) Gross hematuria: Code(s): R31.0 - Gross hematuria Status: Acute Assessment and Plan: Concern for hematoma noted on pelvic ultrasound, appreciate urology consultation and management Urology consultation suspect the recurrent hematuria secondary to radiation cystitis, also noted newly diagnosed papillary urothelial bladder carcinoma, will need outpatient cystoscopy every 3 months (2) Hx of malignant neoplasm of prostate: Code(s): Z85.46 - Personal history of malignant neoplasm of prostate Status: Acute Assessment and Plan: Per outpatient management, receiving radiation (3) Hypertension: Qualifiers: Hypertension type: essential hypertension Qualified Code(s): I10 - Essential (primary) hypertension Code(s): I10 - Essential (primary) hypertension Status: Acute Assessment and Plan: Continue lisinopril, blood pressure reviewed 05/22 (4) Hypothyroidism: Code(s): E03.9 - Hypothyroidism, unspecified Status: Acute Assessment and Plan: Check TSH, continue levothyroxine (5) Pure hypercholesterolemia: Code(s): E78.00 - Pure hypercholesterolemia, unspecified Status: Acute Assessment and Plan: Continue with rosuvastatin Plan DVT prophylaxis with SCDs GI prophylaxis not indicated Code status full code Subjective Date/time seen: 05/22/23 08:39 Interval history: 72-year-old male with history of prostate cancer presenting with hematuria and currently being treated with prophylactic Cipro for possible UTI. No overnight events noted. No chest pain or shortness of breath. No nausea, vomiting or diarrhea. No fevers or chills. Still with hematuria in novoa bag. CBI off temporarily. Review of Systems Review of Systems: 12 point review of systems was assessed and was negative except as noted in the HPI Exam Narrative: General: No acute distress, alert and oriented per baseline HEENT: Atraumatic, normocephalic, mucous membranes moist CV: Regular rate and rhythm, S1, S2 Lungs: Clear to auscultation bilaterally, no rales or crackles noted, no wheezes, good air entry Abdomen: Soft, nontender, nondistended Extremities: Normal to inspection : red urine in novoa bag noted Skin: No rashes noted, no lesions or wounds seen Psych: Euthymic, normal affect Objective Data Vital Signs Vital Signs: Vital Signs - 24 hr 05/21/23 10:35 05/21/23 15:40 05/21/23 15:36 Temperature 98.0 F 98.7 F Pulse Rate 91 70 77 Respiratory Rate 18 16 14 Blood Pressure 132/72 143/78 H 158/77 H Pulse Oximetry 100 100 100 Oxygen Delivery Room Air Room Air Oxygen Flow Rate 05/21/23 16:53 05/21/23 17:05 05/21/23 17:20 Temperature 97.5 F L Pulse Rate 88 80 81 Respiratory Rate 14 15 16 Blood Pressure 143/78 H 138/68 131/45 L Pulse Oximetry 100 100 100 Oxygen Delivery Simple Face Mask Simple Face Mask Simple Face Mask Oxygen Flow Rate 6 6 6 05/21/23 17:35 05/21/23 18:05 05/21/23 18:20 Temperature 97.2 F L 97.2 F L Pulse Rate 72 82 72 Respiratory Rate 13 18 18 Blood Pressure 127/61 159/62 H 143/65 H Pulse Oximetry 100 100 100 Oxygen Delivery Room Air Oxygen Flow Rate 05/21/23 18:50 05/21/23 19:18 05/21/23 20:00 Temperature 97.1 F L 97.7 F Pulse Rate 73 76 Respiratory Rate 18 18 Blood Pressure 134/68 139/73 Pulse Oximetry 100 100 Oxygen Delivery Room Air Oxygen Flow Rate 05/21/23 20:00 05/22/23 00:13 05/22/23 00:00 Temperature 98.5 F Pulse Rate 77 68 62 Respiratory Rate 17 Blood Pressure 112/59 L Pulse Oximetry 99 Oxygen Delivery Oxygen Flow Rate 05/22/23 04:13 05/22/23 04:00 05/22/23 08:00 Temperature 98.5 F Pulse Rate 65 67 Respiratory Rate 17 Blood Pressure 101/58 L Pulse Oximetry 99 99 Oxygen Delivery Room Air Oxygen Flow Rate 05/22/23 08:37 Temperature Pulse Rate
[2023-05-22] MEDS: ASCORBIC ACID 500 MG TABLET PO (08:45)
[2023-05-22] MEDS: CIPROFLOXACIN 500 MG TAB PO ×2 (08:45→21:43)
[2023-05-22] MEDS: lisinopriL 20 MG TABLET 40 MG PO (08:46)
[2023-05-22] MEDS: ROSUVASTATIN 10 MG TABLET 20 MG PO (08:46)
[2023-05-22] MEDS: VITAMIN B COMPLEX CAPSULE 1 CAP PO (08:46)
[2023-05-22] MEDS: polyethylene glycoL 3350 17 GM POWD.PACK PO (08:51)
--- NOTE | 2023-05-22 10:55 | WPDANESPN ---
Anes - Prog Note Post-Op Date/Time: 05/22/23 10:55 Vital Signs: Last Vital Signs Temp 36.7 C 05/22/23 08:48 Pulse 66 05/22/23 08:48 Resp 16 05/22/23 08:48 BP 134/57 L 05/22/23 08:48 Pulse Ox 98 05/22/23 08:48 O2 Del Method Room Air 05/22/23 08:37 O2 Flow Rate 6 05/21/23 17:20 Pain Score (VAS): 0 I/O: Intake & Output 05/21/23 05/22/23 05/22/23 23:59 07:59 15:59 Intake Total 0 250 120 Output Total 1850 1150 400 Balance -7900 -900 -280 Laboratory Tests 05/22/23 05:17 05/21/23 05/21/23 05/21/23 13:36 19:20 23:22 WBC RBC Hgb 11.0 L 10.5 L Hct 32.9 L 30.9 L MCV MCH MCHC RDW Plt Count MPV Immature Gran % (Auto) Neut % (Auto) Lymph % (Auto) [place] % (Auto) Eos % (Auto) Baso % (Auto) Lymph # (Auto) [place] # (Auto) Eos # (Auto) Baso # (Auto) Abs Immat Gran (auto) Absolute Neuts (auto) Absolute Nucleated RBC Nucleated RBC % Blood Type O Positive Antibody Screen Negative 05/22/23 05:17 WBC 6.9 RBC 3.29 L Hgb 10.6 L Hct 31.5 L MCV 95.7 MCH 32.2 MCHC 33.7 RDW 13.3 Plt Count 214 MPV 9.3 Immature Gran % (Auto) 0.3 Neut % (Auto) 80.4 H Lymph % (Auto) 10.4 L [place] % (Auto) 8.5 Eos % (Auto) 0.1 Baso % (Auto) 0.3 Lymph # (Auto) 0.71 L [place] # (Auto) 0.6 Eos # (Auto) 0.0 Baso # (Auto) 0.0 Abs Immat Gran (auto) 0.02 Absolute Neuts (auto) 5.5 Absolute Nucleated RBC 0.0 Nucleated RBC % 0.0 Blood Type Antibody Screen Patient Feedback: Patient satisfied with anesthetic care.
[2023-05-22 11:01] LABS: Hematocrit 30.6 % (42.0-52.0); Hemoglobin 10.3 g/dL (14.0-18.0)
[2023-05-22] MEDS: oxyBUTYnin CHLORIDE 5 MG TABLET PO ×2 (13:16→21:56)
[2023-05-22] MEDS: HYDROcodone/acetaminophen (*CRX) 5-325 MG TABLET 1 TAB PO ×2 (15:24→22:35)
[2023-05-23] VITALS (7 sets, daily range): BP systolic 101–116; BP diastolic 50–62; PULSE 54–73; RESP 17–19; TEMP 36.6–37; O2SAT 100
[2023-05-23] MEDS: LEVOTHYROXINE SODIUM 112 MCG TABLET PO (05:56)
--- NOTE | 2023-05-23 07:39 | WPDUROPN2 ---
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 Urine now clear - will stop CBI and plan voiding trial later this morning. Home this afternoon if voids well (from our standpoint). If discharged today, should f/u in 2-3 weeks. Newly identified papillary urothelial ca. bladder - discussed with pt. Will need surveillance cystoscopy every 3 months for the upcoming year. 05/24/2023 Urine clear except following spasms - catheter probably causing more harm than good. Voiding trial this morning. Subjective Subjective Date/Time Seen: 05/23/23 07:39 Interval history: Intermittent bladder spasms Review of Systems Cardiovascular: Cardiovascular: Denies chest pain, Denies lightheadedness, Denies palpitations and Denies dyspnea Respiratory: Respiratory: Denies dyspnea Gastrointestinal: Gastrointestinal: Denies diarrhea, Denies nausea and Denies vomiting Genitourinary: Genitourinary: Denies hematuria and Denies dysuria Endocrine: Endocrine: Denies palpitations Exam Const: General: no acute distress Resp: Effort & Inspection: normal respiratory effort GI: Inspection: non-distended GI Palp: No abdominal tenderness and No Guarding due to palpation present (GI) Auscultation: normal bowel sounds Urinary Catheter: Urinary Catheter: patent and draining and urine pink Objective Data Vital Signs Vital Signs: Vital Signs - 24 hr 05/22/23 08:00 05/22/23 08:37 05/22/23 08:48 Temperature Pulse Rate Respiratory Rate Blood Pressure 134/57 L Pulse Oximetry 99 96 Oxygen Delivery Room Air Room Air 05/22/23 08:00 05/22/23 08:48 05/22/23 12:00 Temperature 98.0 F Pulse Rate 65 66 75 Respiratory Rate 16 Blood Pressure Pulse Oximetry 98 Oxygen Delivery 05/22/23 12:18 05/22/23 16:00 05/22/23 16:18 Temperature 98.2 F 97.8 F Pulse Rate 66 66 68 Respiratory Rate 17 18 Blood Pressure 132/60 132/81 Pulse Oximetry 98 98 Oxygen Delivery 05/22/23 20:18 05/22/23 23:48 05/22/23 20:00 Temperature 98.4 F 98.2 F Pulse Rate 64 66 63 Respiratory Rate 17 17 Blood Pressure 98/51 L 103/51 L Pulse Oximetry 99 99 Oxygen Delivery 05/23/23 00:00 05/22/23 21:35 05/23/23 03:40 Temperature 98.6 F Pulse Rate 61 56 L Respiratory Rate 17 Blood Pressure 101/50 L Pulse Oximetry 100 Oxygen Delivery Room Air 05/22/23 21:15 05/23/23 04:00 Temperature Pulse Rate 54 L Respiratory Rate Blood Pressure Pulse Oximetry 99 Oxygen Delivery Room Air Intake/Output Intake/Output: Intake & Output 05/20/23 05/21/23 05/22/23 05/23/23 23:59 23:59 23:59 23:59 Intake Total 0 980 100 Output Total 1850 9802 7034 Balance -3883 -4173 -8290 Meds/Results Medications: Active Medications Generic Name Dose Route Start Last Admin Trade Name Freq PRN Reason Stop Dose Admin Hydrocodone Bitart/Acetaminophen 1 tab 05/21/23 18:59 05/22/23 22:35 Hydrocodone/Acetaminophen (*Crx) 5-325 Mg Tablet PO 1 tab Q6H PRN Administration PAIN RATED 4-6 Ascorbic Acid 500 mg 05/22/23 09:00 05/22/23 08:45 Ascorbic Acid 500 Mg Tablet PO 500 mg DAILY ANNIE Administration Ciprofloxacin 500 mg 05/21/23 21:00 05/22/23 21:43 Ciprofloxacin 500 Mg Tab PO 500 mg Q12HR ANNIE Administration Docusate Sodium 100 mg 05/21/23 19:00 Docusate Sodium 100 Mg Capsule PO Q12H PRN Constipation Levothyroxine Sodium 112 mcg 05/22/23 06:30 05/23/23 05:56 Levothyroxine Sodium 112 Mcg Tablet PO 112 mcg DAILY@0630 ANNIE Administration Lisinopril 40 mg 05/22/23 09:00 05/22/23 08:46 Lisinopril 20 Mg Tablet PO 40 mg DAILY ANNIE Administration Oxybutynin Chloride 5 mg 05/21/23 18:59 05/22/23 21:56 Oxybutynin Chloride 5 Mg Tablet PO 5 mg TID PRN Administration Bladder Spasm
[2023-05-23] MEDS: ASCORBIC ACID 500 MG TABLET PO (08:11)
[2023-05-23] MEDS: ROSUVASTATIN 10 MG TABLET 20 MG PO (08:12)
[2023-05-23] MEDS: DOCUSATE SODIUM 100 MG CAPSULE PO (08:12)
[2023-05-23] MEDS: CIPROFLOXACIN 500 MG TAB PO ×2 (08:12→21:07)
[2023-05-23] MEDS: VITAMIN B COMPLEX CAPSULE 1 CAP PO (08:12)
[2023-05-23] MEDS: lisinopriL 20 MG TABLET 40 MG PO (08:13)
[2023-05-23] MEDS: polyethylene glycoL 3350 17 GM POWD.PACK PO (08:13)
--- NOTE | 2023-05-23 13:28 | PM.IMPN ---
Progress Note: A&P Assessment and Plan (1) Gross hematuria: Code(s): R31.0 - Gross hematuria Status: Acute Assessment and Plan: Concern for hematoma noted on pelvic ultrasound, appreciate urology consultation and management Urology consultation suspect the recurrent hematuria secondary to radiation cystitis, also noted newly diagnosed papillary urothelial bladder carcinoma, will need outpatient cystoscopy every 3 months. CBI was removed and patient hand grossing insomnia with large clots and Neurology reassessed and restarted his GI and trial off later. (2) Hx of malignant neoplasm of prostate: Code(s): Z85.46 - Personal history of malignant neoplasm of prostate Status: Acute Assessment and Plan: Per outpatient management, receiving radiation (3) Hypertension: Qualifiers: Hypertension type: essential hypertension Qualified Code(s): I10 - Essential (primary) hypertension Code(s): I10 - Essential (primary) hypertension Status: Acute Assessment and Plan: Continue lisinopril, blood pressure reviewed 05/22 (4) Hypothyroidism: Qualifiers: Hypothyroidism type: unspecified Qualified Code(s): E03.9 - Hypothyroidism, unspecified Code(s): E03.9 - Hypothyroidism, unspecified Status: Acute Assessment and Plan: Check TSH, continue levothyroxine (5) Pure hypercholesterolemia: Code(s): E78.00 - Pure hypercholesterolemia, unspecified Status: Acute Assessment and Plan: Continue with rosuvastatin Plan DVT prophylaxis with SCDs GI prophylaxis not indicated Code status full code Subjective Date/time seen: 05/23/23 0810 Interval history: On rounding this morning patient was lying comfortably in bed and denied any complaints of nausea, abdominal pain, shortness a breath. CBI had been discontinued and patient was urinating, however, felt he was not able to empty his bladder completely. Speaking with nursing staff patient started having gross hematuria with clots and Urology was called he will restart CBI and trial out again later. Review of Systems Review of Systems: All systems reviewed & are unremarkable except as noted in HPI and below Constitutional: Constitutional: Reports as per HPI Genitourinary: Genitourinary: Reports hematuria (with clots) Exam Narrative: Patient is alert and oriented x4 and appears in no acute distress. Pleasant affect noted. And joking with staff. Const: General: comfortable and no acute distress HENMT: Face/Nose/Sinus: Normal nares present Mouth: Yes moist mucous membranes Eyes: General: appearance normal, both eyes and all related structures Sclera: sclerae normal Pupils: Equal, round and reactive pupils present EOM: EOMs intact bilaterally Neck: Neck: supple and no JVD Resp: Effort & Inspection: normal respiratory effort Auscultation: clear to auscultation bilaterally Other: Patient appears in no acute respiratory distress. Able to speak in complete sentences without difficulty. No use of accessory muscles appreciated. Lung sounds are clear and equal bilaterally. Cardio: Rate: regular rate Rhythm: regular rhythm Other: No gallop, rub, murmur noted to auscultation GI: GI Palp: Yes Soft to palpation Auscultation: normal bowel sounds Other: abdomen soft, nontender to palpation with bowel sounds present x4 quadrants Skin: General skin exam: normal color Other: skin is warm, dry, pink with brisk capillary refill Neuro: Speech: normal speech Motor exam (neuro): 5/5 motor strength present throughout and Normal motor muscle tone present throughout Other: patient is alert and oriented x4 and appears in no acute distress Extrem: General: normal to inspection Psych: Mental Status: mental status grossly normal Affect: normal affect Objective Data Vital Signs Vital Signs: Vital Signs - 24 hr 08/
[2023-05-24] VITALS: BP 116/62; PULSE 71; RESP 18; TEMP 36.4; O2SAT 98
[2023-05-24 04:00] VITALS: BP 119/61; PULSE 65; RESP 18; TEMP 36.6; O2SAT 99
[2023-05-24] MEDS: LEVOTHYROXINE SODIUM 112 MCG TABLET PO (05:34)
--- NOTE | 2023-05-24 07:10 | WPDUROPN2 ---
Progress Note: A&P Assessment and Plan (1) Gross hematuria: Code(s): R31.0 - Gross hematuria Status: Acute Assessment and Plan: Voiding well and urine clear. U/S yesterday showed small clot in bladder that has probably broken-up. He can definitely be discharged today. F/U with us ~3-weeks. Subjective Subjective Date/Time Seen: 05/24/23 07:10 Interval history: Voiding well, anxious for discharge Review of Systems Cardiovascular: Cardiovascular: Denies chest pain, Denies lightheadedness, Denies palpitations and Denies dyspnea Respiratory: Respiratory: Denies dyspnea Gastrointestinal: Gastrointestinal: Denies diarrhea, Denies nausea and Denies vomiting Genitourinary: Genitourinary: Denies hematuria and Denies dysuria Endocrine: Endocrine: Denies palpitations Exam Const: General: no acute distress Resp: Effort & Inspection: normal respiratory effort GI: Inspection: non-distended GI Palp: No abdominal tenderness and No Guarding due to palpation present (GI) Auscultation: normal bowel sounds Objective Data Vital Signs Vital Signs: Vital Signs - 24 hr 05/23/23 08:00 05/23/23 08:00 05/23/23 08:00 Temperature 98.2 F Pulse Rate 60 61 Respiratory Rate 18 Blood Pressure 110/58 L Pulse Oximetry 100 100 Oxygen Delivery Room Air 05/23/23 12:00 05/23/23 16:00 05/23/23 19:38 Temperature 98 F 98.1 F 98.1 F Pulse Rate 72 70 73 Respiratory Rate 18 19 18 Blood Pressure 112/60 116/62 109/62 Pulse Oximetry 100 100 100 Oxygen Delivery 05/24/23 00:00 05/23/23 21:00 05/24/23 04:00 Temperature 97.6 F 97.9 F Pulse Rate 71 65 Respiratory Rate 18 18 Blood Pressure 116/62 119/61 Pulse Oximetry 98 99 Oxygen Delivery Room Air Intake/Output Intake/Output: Intake & Output 05/21/23 05/22/23 05/23/23 05/24/23 23:59 23:59 23:59 23:59 Intake Total 0 980 1520 Output Total 1850 3828 5525 030 Balance -8707 -5430 -1105 -400 Meds/Results Medications: Active Medications Generic Name Dose Route Start Last Admin Trade Name Freq PRN Reason Stop Dose Admin Hydrocodone Bitart/Acetaminophen 1 tab 05/21/23 18:59 05/22/23 22:35 Hydrocodone/Acetaminophen (*Crx) 5-325 Mg Tablet PO 1 tab Q6H PRN Administration PAIN RATED 4-6 Ascorbic Acid 500 mg 05/22/23 09:00 05/23/23 08:11 Ascorbic Acid 500 Mg Tablet PO 500 mg DAILY ANNIE Administration Ciprofloxacin 500 mg 05/21/23 21:00 05/23/23 21:07 Ciprofloxacin 500 Mg Tab PO 500 mg Q12HR ANNIE Administration Docusate Sodium 100 mg 05/21/23 19:00 05/23/23 08:12 Docusate Sodium 100 Mg Capsule PO 100 mg Q12H PRN Administration Constipation Levothyroxine Sodium 112 mcg 05/22/23 06:30 05/24/23 05:34 Levothyroxine Sodium 112 Mcg Tablet PO 112 mcg DAILY@0630 ANNIE Administration Lisinopril 40 mg 05/22/23 09:00 05/23/23 08:13 Lisinopril 20 Mg Tablet PO 40 mg DAILY ANNIE Administration Oxybutynin Chloride 5 mg 05/21/23 18:59 05/22/23 21:56 Oxybutynin Chloride 5 Mg Tablet PO 5 mg TID PRN Administration Bladder Spasm Polyethylene Glycol 17 gm 05/21/23 19:00 05/23/23 08:13 Polyethylene Glycol 3350 17 Gm Powd.Pack PO 17 gm QAM PRN Administration Constipation Rosuvastatin Calcium 20 mg 05/22/23 09:00 05/23/23 08:12 Rosuvastatin 10 Mg Tablet PO 20 mg DAILY ANNIE Administration Vitamin B Complex 1 cap 05/22/23 09:00 05/23/23 08:12 Vitamin B Complex Capsule PO 1 cap DAILY ANNIE Administration Radiology Results: ITS Impressions Pelvis Ultrasound 05/21/23 14:56 IMPRESSION: 1. Material in the bladder, consistent with hematoma.
--- NOTE | 2023-05-24 08:29 | PM.IMPN ---
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 CBI was removed and patient still passing large clots, urology reassessed, CBI restarted (2) Hx of malignant neoplasm of prostate: Code(s): Z85.46 - Personal history of malignant neoplasm of prostate Status: Acute Assessment and Plan: Per outpatient management, receiving radiation (3) Hypertension: Qualifiers: Hypertension type: essential hypertension Qualified Code(s): I10 - Essential (primary) hypertension Code(s): I10 - Essential (primary) hypertension Status: Acute Assessment and Plan: Continue lisinopril, blood pressure reviewed 05/24 (4) Hypothyroidism: Qualifiers: Hypothyroidism type: unspecified Qualified Code(s): E03.9 - Hypothyroidism, unspecified Code(s): E03.9 - Hypothyroidism, unspecified Status: Acute Assessment and Plan: Check TSH, continue levothyroxine (5) Pure hypercholesterolemia: Code(s): E78.00 - Pure hypercholesterolemia, unspecified Status: Acute Assessment and Plan: Continue with rosuvastatin Plan DVT prophylaxis with SCDs GI prophylaxis not indicated Code status full code Subjective Date/time seen: 05/24/23 08:29 Interval history: No overnight events noted. No chest pain or shortness of breath. No nausea, vomiting or diarrhea. No fevers or chills. Review of Systems Review of Systems: 12 point review of systems was assessed and was negative except as noted in the HPI Exam Narrative: General: No acute distress, alert and oriented per baseline HEENT: Atraumatic, normocephalic, mucous membranes moist CV: Regular rate and rhythm, S1, S2 Lungs: Clear to auscultation bilaterally, no rales or crackles noted, no wheezes, good air entry Abdomen: Soft, nontender, nondistended Extremities: Normal to inspection Skin: No rashes noted, no lesions or wounds seen Psych: Euthymic, normal affect Objective Data Vital Signs Vital Signs: Vital Signs - 24 hr 05/23/23 12:00 05/23/23 16:00 05/23/23 19:38 Temperature 98 F 98.1 F 98.1 F Pulse Rate 72 70 73 Respiratory Rate 18 19 18 Blood Pressure 112/60 116/62 109/62 Pulse Oximetry 100 100 100 Oxygen Delivery 05/24/23 00:00 05/23/23 21:00 05/24/23 04:00 Temperature 97.6 F 97.9 F Pulse Rate 71 65 Respiratory Rate 18 18 Blood Pressure 116/62 119/61 Pulse Oximetry 98 99 Oxygen Delivery Room Air Intake/Output Intake/Output: Intake & Output 05/21/23 05/22/23 05/23/23 05/24/23 23:59 23:59 23:59 23:59 Intake Total 0 980 1520 1650 Output Total 1850 7770 3786 400 Balance -1850 -2670 -1105 1250 Meds/Results Medications: Active Medications Generic Name Dose Route Start Last Admin Trade Name Freq PRN Reason Stop Dose Admin Hydrocodone Bitart/Acetaminophen 1 tab 05/21/23 18:59 05/22/23 22:35 Hydrocodone/Acetaminophen (*Crx) 5-325 Mg Tablet PO 1 tab Q6H PRN Administration PAIN RATED 4-6 Ascorbic Acid 500 mg 05/22/23 09:00 05/23/23 08:11 Ascorbic Acid 500 Mg Tablet PO 500 mg DAILY ANNIE Administration Ciprofloxacin 500 mg 05/21/23 21:00 05/23/23 21:07 Ciprofloxacin 500 Mg Tab PO 500 mg Q12HR ANNIE Administration Docusate Sodium 100 mg 05/21/23 19:00 05/23/23 08:12 Docusate Sodium 100 Mg Capsule PO 100 mg Q12H PRN Administration Constipation Levothyroxine Sodium 112 mcg 05/22/23 06:30 05/24/23 05:34 Levothyroxine Sodium 112 Mcg Tablet PO 112 mcg DAILY@0630 ANNIE Administration Lis
[2023-05-24] MEDS: lisinopriL 20 MG TABLET 40 MG PO (08:43)
[2023-05-24 08:44] VITALS: RESP 18; O2SAT 99
[2023-05-24] MEDS: VITAMIN B COMPLEX CAPSULE 1 CAP PO (08:44)
[2023-05-24] MEDS: ROSUVASTATIN 10 MG TABLET 20 MG PO (08:44)
[2023-05-24] MEDS: CIPROFLOXACIN 500 MG TAB PO (08:44)
--- NOTE | 2023-05-24 09:28 | PM.DS ---
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 CBI was removed and patient still passing large clots, urology reassessed, CBI restarted (2) Hx of malignant neoplasm of prostate: Code(s): Z85.46 - Personal history of malignant neoplasm of prostate Status: Acute Assessment and Plan: Per outpatient management, receiving radiation (3) Hypertension: Qualifiers: Hypertension type: essential hypertension Qualified Code(s): I10 - Essential (primary) hypertension Code(s): I10 - Essential (primary) hypertension Status: Acute Assessment and Plan: Continue lisinopril, blood pressure reviewed 05/24 (4) Hypothyroidism: Qualifiers: Hypothyroidism type: unspecified Qualified Code(s): E03.9 - Hypothyroidism, unspecified Code(s): E03.9 - Hypothyroidism, unspecified Status: Acute Assessment and Plan: Check TSH, continue levothyroxine (5) Pure hypercholesterolemia: Code(s): E78.00 - Pure hypercholesterolemia, unspecified Status: Acute Assessment and Plan: Continue with rosuvastatin Plan DVT prophylaxis with SCDs GI prophylaxis not indicated Code status full code DS: Summary Hospital Course Hospital Course: 72-year-old male with history of prostate cancer presenting with hematuria and currently being treated with prophylactic Cipro for possible UTI. 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 CBI was initiated, hematuria resolved. However, once CBI was stopped, hematuria recurred. Then CBI was re-initiated, hematuria cleared. Urology thought patient was stable for discharge. Please see above and med rec for details. Time Spent with Patient Time attestation: Total time spent providing and/or coordinating discharge services: Exam Narrative: General: No acute distress, alert and oriented per baseline HEENT: Atraumatic, normocephalic, mucous membranes moist CV: Regular rate and rhythm, S1, S2 Lungs: Clear to auscultation bilaterally, no rales or crackles noted, no wheezes, good air entry Abdomen: Soft, nontender, nondistended Extremities: Normal to inspection Skin: No rashes noted, no lesions or wounds seen Psych: Euthymic, normal affect DS: Data Data Completed and Pending Completed studies during hospitalization: Pending at discharge 05/21/23 16:33 Surgical [PTH] Routine Discharge Plan Discharge Attending physician on discharge: Stefani Fernández Consulting providers: Fredy Evans Discharging Clinician: Stefani Fernández Patient Disposition: Home, Self-Care Activity: as tolerated Diet: as tolerated Discharge Instructions: You will need to follow up with Urology for a cystoscopy every 3 months. Patient Instructions: Antibiotic Form Stand Alone Forms: General Discharge Information Follow-up/Referrals: Fredy Evans MD [Physician] - Les Mason MD [Primary Care Provider] - Discharge Medications: Continued ascorbic acid (vitamin C) 500 mg Tablet 500 mg PO DAILY Patient Comments: QAM B Complex 1 tablet PO DAILY Patient Comments: QAM lisinopril 40 mg tablet 40 mg PO DAILY Qty
== END 2023-05-24 10:10 | disposition home or self-care (01) ==
LOC: ANHED 15:24 → ANHSURGERY 15:34 → ANH2MED 18:00
PROVIDERS: Nurse Practitioner; Urology; Admitting Provider Internal Medicine; Emergency Provider Emergency Medicine; PCP Family Medicine; Visit Provider Student in an Organized Health Care Education/Training Program
PROC: 0TCB8ZZ Extirpation of Matter from Bladder, Via Natural or Artificial Opening Endoscopic (ICD-10-PCS; CPT 52001; principal; 2023-05-21 16:00)
DX: R31.0 Gross hematuria (principal); N39.0 Urinary tract infection, site not specified; T83.038A Leakage of other urinary catheter, initial encounter; Z96.0 Presence of urogenital implants; D64.9 Anemia, unspecified; F41.9 Anxiety disorder, unspecified; E78.5 Hyperlipidemia, unspecified; I10 Essential (primary) hypertension; E03.9 Hypothyroidism, unspecified; F10.90 Alcohol use, unspecified, uncomplicated; Z85.46 Personal history of malignant neoplasm of prostate; Z92.3 Personal history of irradiation; Z79.899 Other long term (current) drug therapy; Z82.49 Family history of ischemic heart disease and other diseases of the circulatory system
CPT/HCPCS: 52001; 52234; 36415; 51700; 76857; 80053; 81001; 85014; 85018; 85025; 85610; 85730; 86850; 86900; 86901; 87086; 88305; 96360; 96361; 96374; 99285; A9270; G0378; J1100; J2060; J2405; J2704; J3010; J7120

== ENCOUNTER 2023-06-05 09:43 | Outpatient (CLI) | payer MEDICARE, SELFPAY ==
--- NOTE | ~2023-06-05 | XR_ITS ---
EXAMINATION: XR wrist LT min 3V, XR hand LT min 3V, XR wrist RT min 3V, XR hand RT min 3V DATE: 06/05/2023 10:03 INDICATION: Chronic wrist pain TECHNIQUE: 1. Posteroanterior, ulnar deviation, oblique, and lateral views of the left wrist were obtained. 2. Dorsal palmar, oblique and lateral views of the left hand were obtained. 3. Posteroanterior, ulnar deviation, oblique, and lateral views of the right wrist were obtained. 4. Dorsal palmar, oblique and lateral views of the right hand were obtained. COMPARISON: None. FINDINGS: No fracture at the bilateral hands or wrists. There is polyarticular osteoarthritis, severe with cent ral erosions with gull wing configuration consistent with erosive osteoarthritis at the bilateral fir st interphalangeal, bilateral second and third distal interphalangeal, bilateral third proximal inter phalangeal and right third proximal interphalangeal joints. Additional severe osteoarthritis at the b ilateral triscaphe and first carpal metacarpal joints. Moderate osteoarthritis at the right first-thi rd and left fourth and fifth metacarpophalangeal joints and majority the remaining bilateral interpha langeal joints and mild at the bilateral distal radioulnar, wrist, midcarpal and remaining metacarpop halangeal joints. There is secondary mild ulnar angulation at the bilateral third proximal interphala ngeal joints. No periarticular erosions to a suspicion for rheumatoid arthritis. Periarticular soft t issue swelling associated with prominent marginal osteophytes at the most severely affected interphal angeal joints. IMPRESSION: 1. Typical pattern of relatively symmetric severe polyarticular osteoarthritis most prominent at the carpus and at multiple predominantly distal interphalangeal joints where there is erosive osteoarthri tis. Reviewed, dictated and finalized at location A. IMPRESSION: 1. Typical pattern of relatively symmetric severe polyarticular osteoarthritis most prominent at the carpus and at multiple predominantly distal interphalange al joints where there is erosive osteoarthritis. IMPRESSION: 1. Typical pattern of relatively symmetric severe polyarticular osteoarthritis most prominent at the carpus and at multiple predominantly distal interphalange al joints where there is erosive osteoarthritis. IMPRESSION: 1. Typical pattern of relatively symmetric severe polyarticular osteoarthritis most prominent at the carpus and at multiple predominantly distal interphalange al joints where there is erosive osteoarthritis.
== END 2023-06-05 09:44 | disposition home or self-care (01) ==
LOC: ANHIMG 09:46
PROVIDERS: PCP Family Medicine; Visit Provider Family Medicine
DX: M25.539 Pain in unspecified wrist (principal); M79.641 Pain in right hand; M79.642 Pain in left hand; M25.531 Pain in right wrist; M25.532 Pain in left wrist
CPT/HCPCS: 73110; 73130

== ENCOUNTER 2023-06-07 09:04 | Outpatient (CLI) | payer MEDICARE, SELFPAY ==
--- NOTE | ~2023-06-07 | CT_ITS ---
EXAMINATION: CT abdomen pelvis wo/w con DATE: 06/07/2023 09:52 INDICATION: Gross hematuria. TECHNIQUE: Computed tomography (CT) of the abdomen and pelvis was performed without and with intraven ous contrast using a total of 130 mL Omnipaque-350 intravenous contrast with a double-bolus technique for simultaneous opacification of the renal parenchyma and renal collecting system. Automated exposu re control and iterative reconstruction technique were employed. The dose-length product was 1189.67 mGy-cm. COMPARISON: CT abdomen and pelvis 08/16/2022 FINDINGS: The visualized portions of the lung bases demonstrate mild atelectasis. Calcified bilateral lung nodu les are consistent with old granulomatous disease. No pleural effusion. The heart size is normal. No pericardial effusion. There is a small sliding hiatal hernia. The liver, gallbladder, spleen, pancrea s, and adrenal glands are normal. There are cysts in the kidneys measuring up to 7.2 cm on the left. There is no urolithiasis. The ureters are well opacified and are normal. The bladder is not well dist ended. There is chronic diffuse bladder wall thickening, likely secondary to chronic outlet obstructi on. The prostate is mildly enlarged. There are brachytherapy seeds in the prostate. There is divertic ulosis of the colon without evidence of diverticulitis. There are no dilated loops of bowel. The appe ndix is normal. There is calcified atherosclerosis of the aorta and many of the other arteries. There are no pathologically enlarged lymph nodes. There is severe lumbar spondylosis. IMPRESSION: 1. No specific etiology for hematuria. Reviewed, dictated and finalized at location A.
--- NOTE | ~2023-06-07 | XR_ITS ---
EXAMINATION: XR abdomen/kub 1V DATE: 06/07/2023 09:24 INDICATION: Gross hematuria. TECHNIQUE: A supine view of the abdomen on 2 radiographs was obtained. COMPARISON: CT abdomen and pelvis 06/07/2023 FINDINGS: There are no dilated loops of bowel. There is a moderate volume of stool in the colon. Ther e is no urolithiasis. There are brachytherapy seeds in the prostate. IMPRESSION: 1. No urolithiasis. Reviewed, dictated and finalized at location A. IMPRESSION: 1. No urolithiasis.
== END 2023-06-07 09:05 | disposition home or self-care (01) ==
PROVIDERS: PCP Family Medicine; Visit Provider Nurse Practitioner Adult Health
DX: R31.0 Gross hematuria (principal)
CPT/HCPCS: 74018; 74178; Q9967

== ENCOUNTER 2023-08-25 03:21 | Inpatient (IN) | payer MEDICARE, SELFPAY ==
[2023-08-25] VITALS (14 sets, daily range): BP systolic 127–165; BP diastolic 58–92; PULSE 69–97; RESP 10–20; TEMP 36.3–36.6; O2SAT 95–100; BMI 26.4
--- NOTE | ~2023-08-25 | US_ITS ---
EXAMINATION: US retroperitoneal comp DATE: 08/25/2023 15:53 INDICATION: Hematuria TECHNIQUE: Multiple ultrasound grayscale images of the kidneys were obtained. COMPARISON: None. FINDINGS: The right kidney measures 11.7 x 3.9 x 5.7 cm. The left kidney measures 12.0 x 7.8 x 8.7 cm. The kidn eys demonstrate normal echogenicity. 6.3 x 6.0 x 5.0 cm anechoic cyst at the mid left kidney. There i s no hydronephrosis in either kidney. No stones identified. Hypoechoic material measuring up to 1.5 cm thickness at the periphery of a Lindsey catheter bulb. It is unclear whether this represents the thi ckened decompressed bladder or potentially clot within the bladder surrounding the Lindsey catheter bul b. Peripheral to the echogenic material is a small crescentic anechoic fluid collection the configura tion of which favors small amount of fluid within the bladder as opposed to ascites peripheral to the bladder thereby suggesting the echogenic material is more likely to represent clot. IMPRESSION: 1. 6.3 cm left renal cyst. Otherwise normal kidneys without hydronephrosis. 2. Echogenic material likely representing clot surrounding a Lindsey catheter bulb within the bladder. Reviewed, dictated and finalized at location A. IMPRESSION: 1. 6.3 cm left renal cyst. Otherwise normal kidneys without hydronephrosis. 2. Echogenic material likely representing clot surrounding a Lindsey catheter bul b within the bladder.
[2023-08-25] MEDS: MORPHINE SULFATE (*CRX) 4 MG/ML INJ IV PUSH (03:59)
[2023-08-25] MEDS: ONDANSETRON INJ 4 MG/2 ML VIAL IV PUSH (03:59)
--- NOTE | 2023-08-25 03:59 | ED.MALEGU ---
HPI - Male Genitourinary General Chief complaint: Urogenital-Male Stated complaint: unable to urinate Time Seen by Provider: 08/25/23 03:30 History of Present Illness HPI Narrative: Patient is a 73-year-old male with history of prostate cancer, bladder cancer, hypertension here with urinary retention. He states that he has had a recurrent issue with hematuria, this episode seems to have began about a week ago. He notes that he started passing large clots yesterday and around 10:00 p.m. stopped being able to urinate. He continues to have the urge to void but is unable to pass any urine. Of note he has been following Dr. Matias regarding this, is scheduled for an outpatient procedure on this . He does note prior multiple hospitalizations for similar in the past. He endorses some pain with attempts of urination, denies fever or chills. He is not on any blood thinners. Related Data Home Medications Medication Instructions Recorded Confirmed ascorbic acid (vitamin C) 500 mg 500 mg PO DAILY 10/27/21 06/29/23 tablet vitamin B complex (Complex B-100 1 tablet PO DAILY 06/29/23 06/29/23 tablet,extended release) Allergies Allergy/AdvReac Type Severity Reaction Status Date / Time No Known Allergies Allergy Unknown Verified 08/25/23 03:34 Review of Systems Review of Systems: All systems reviewed & are unremarkable except as noted in HPI and below PMFSH Past Medical History Medical History Adenomatous colon polyp Anxiety disorder due to medical condition BMI 26.0-26.9,adult BMI 27.0-27.9,adult BMI 28.0-28.9,adult BMI 29.0-29.9,adult 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 H/O prostate cancer radiation treatment several 3-4 years ago Hematochezia Hx of malignant neoplasm of prostate Hx of tongue cancer radiation Hyperlipidemia Hypertension Hypothyroid Hypothyroidism Osteomyelitis of mandible Prostate cancer Pure hypercholesterolemia Wrist pain Surgical History Surgical History H/O colonoscopy with polypectomy H/O cystoscopy History of mandibular surgery S/P colonoscopy S/P hernia repair Family History Family History (Updated 06/29/23 @ 11:31 by OM[facility] Mahmood) Father Diabetes mellitus Hypertension Acute angina Coronary artery disease Heart disease Mother Congestive heart failure Diabetes mellitus Sibling Myocardial infarction Heart disease Sibling No problems noted. Social History Social History Social History: He is with 1 child. 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 Lifelong nonsmoker. His is the durable power prosecuting attorney for healthcare. Code status full code Smoking status: Never smoker Second hand tobacco smoke exposure: No Alcohol intake: current Drinks per week: 21 Alcohol use details: 3 beers per day Substance use: never Substance use type: does not use Lack of Transportation: No Lack of Food: Never True Current Housing: I Have Housing Concerned About Future Housing: No Difficulty Paying Gas/Electric Bills: No Difficulty Paying for Meds: No Currently Unemployed: No Education: Master's Degree or Higher Difficulty w/ Childcare or Family Care: No Living arrangements: with family Occupation/Education: retired Additional occupation/education comments: [employer] Gender identity (if verbalized by the patient): Male Spiritual care concerns: No Exam Narrative: GENERAL: Well-appearing, well-nourished, and in no acute distress. HEAD: Normocephalic, atraumatic. EYES: PERRLA and EOMI. ENT: Nares clear. Mucous membranes moist. NECK: Supple. CHEST: Clear to auscultation. No respiratory distress. HEART: Regular rate and rhythm. Normal peripheral pulses. ABDOMEN: Soft,
[2023-08-25 04:00] LABS: Basophils Absolute Auto 0.1 K/mm3 (0.0-0.1); Basophils Percent Auto 0.9 % (0.2-1.2); Eosinophils Absolute Auto 0.1 K/mm3 (0-0.3); Eosinophils Percent Auto 1.4 % (0-4.4); Hematocrit 33.3 % (42.0-52.0); Hemoglobin 11.2 g/dL (14.0-18.0); Immature Granulocyte Absolute 0.02 K/mm3 (0.00-0.031); Immature Granulocyte Percent A 0.3 % (0-0.5); Lymphocytes Absolute Auto 0.92 K/mm3 (0.9-3.2); Lymphocytes Percent Auto 15.7 % (18.3-44.2); Mean Corpuscular HGB Conc 33.6 g/dl (32-36); Mean Corpuscular Hemoglobin 30.4 pg (26-34); Mean Corpuscular Volume 90.5 fl (80-100); Mean Platelet Volume 8.8 fl (7.4-10.4); Monocytes Absolute Auto 0.5 K/mm3 (0.1-0.6); Neutrophils Absolute Auto 4.3 K/mm3 (1.3-6.7); Neutrophils Percent Auto 72.7 % (45.5-73.1); Platelet Count Result 261 k/mm3 (150-375); Red Blood Count 3.68 M/mm3 (4.6-6.20); Red Cell Distribution Width 14.3 % (11.5-14.5); White Blood Count 5.9 K/mm3 (4.5-10.0)
[2023-08-25 04:11] LABS: Alanine Aminotransferase 22 U/L (6-50); Albumin Level 4.6 g/dL (3.5-5.1); Alkaline Phosphatase 54 U/L (38-126); Anion Gap 10 mmol/L (8-16); Aspartate Amino Transferase 30 U/L (17-59); Bilirubin,Total 0.5 mg/dL (0.2-1.3); Blood Urea Nitrogen 22 mg/dL (9-20); Calcium 9.9 mg/dL (8.4-10.2); Carbon Dioxide 23 mmol/L (22-30); Chloride 99 mmol/L (98-107); Estimated CRCL calculation 56 ml/min; Estimated Glomerular Filt Rate > 60; Glucose 119 mg/dL (65-110); Potassium 4.2 mmol/L (3.4-5.0); Sodium 132 mmol/L (137-145)
[2023-08-25 04:16] LABS: Prothrombin Time 13.6 Seconds (11.1-14.7)
[2023-08-25 04:17] LABS: Partial Thromboplastin Time 25.2 SECONDS (22.3-36.8)
[2023-08-25 04:47] LABS: Bacteria Urine None Seen /hpf; Need Manual Microscopic Reviewed; RBC Urine >100 /hpf (0-2); Squamous Epithelial Cell Urine None seen /hpf (Few)
[2023-08-25 04:48] LABS: Appearance Urine Cloudy (Clear); Bilirubin Urine 1+ (Negative); Blood Urine 3+ (Negative); Glucose Urine UA Negative (Negative); Ketones Urine Negative (Negative); Leukocyte Esterase Ur 1+ LEU/UL (Negative); Nitrate Urine Positive (Negative); Protein Urine 3+ mg/dL (Negative); Specific Grav Ur 1.012 (1.001-1.035); Urobilinogen Urine 0.2 mg/dL (<2.0); pH Urine 5.5 (5.0-9.0)
[2023-08-25 04:49] LABS: Color Urine Brown (Yellow)
[2023-08-25 04:50] LABS: Add Urine Microscopic? YES
--- NOTE | 2023-08-25 06:31 | ADMGEN ---
This patient, Angel Vargas, was admitted to Medical Room 347-. Patient/family oriented to hospital policies and general routines including ID bracelet, bed and alarms, visiting hours, pain management, procedures, bathroom and other care routines, personal items, smoking policy, room service/diet, and visiting hours. Information on how to activate the Rapid Response Team has been discussed. Patient/Family are encouraged to report perceived risks to care and to ask questions if they do not understand what they are told or what they should do.
--- NOTE | 2023-08-25 08:00 | PM.IMHP ---
H&P: HPI History of Present Illness Date/Time: 08/25/23 08:00 Chief Complaint: Urinary retention Narrative: This is a 73 year old male with a significant past medical history of prostate cancer, bladder cancer, tongue cancer, hyperlipidemia, hypothyroidism and hypertension presented with hematuria. Patient states that he has had hematuria for about a week now. He follows with Dr. Matias over in [place] at [facility]. Patient states that he has hematuria from time to time ever since his last radiation treatment [address] Matias has seen him about 2 months ago where they removed some polyps in his bladder and did some bladder irrigation on an outpatient basis. He was told at that time that he will likely have more episodes of hematuria. This time he was having some urinary retention with urgency due to the blood clots. He was supposed to see Dr. Matias on of this week for another bladder irrigation however his symptoms started to become worse and so he presented for further workup. Work up in hospital included urinalysis showing 3+ protein, 3+ blood, positive nitrates, 1+ bili 1+ leukocyte, 3-5 urine casts, many urine rbc's and wbc's. Labs include WBC 5.9, RBC 3.6 C, hemoglobin 11.2, hematocrit 33.3, sodium 132, potassium 4.2, BUN 22, creatinine 1.1, glucose 119. Urine culture was obtained and is pending. Patient was given Rocephin in the ER along with a dose of Morphine and Zofran. Urology was consulted. On examination today patient has 3 way catheter with bladder irrigation going. His urine sexton colored with no noticeable blood clots. Patient states he is feeling much better now that he is receiving the bladder irrigation. His vital signs are stable, he is afebrile, he is on room air. He denies any pain. He denies any fever, chills, nausea, vomiting, diarrhea, abdominal pain, shortness a breath, chest pain. The only symptoms that he reported was the hematuria and the urgency prior to the catheter being placed. Patient will continue on Rocephin IV until urine culture comes back. We will continue with bladder irrigation today and await further input from Urology. Review of Systems Review of Systems: All systems reviewed & are unremarkable except as noted in HPI and below Constitutional: Constitutional: Reports as per HPI, Reports no additional constitutional complaints, Denies body ache(s) and Denies chills Eyes: Eyes: Reports as per HPI and Reports no additional eye complaints ENT: Reports system reviewed and no additional complaints, except as documented and Reports as per HPI Cardiovascular: Cardiovascular: Reports as per HPI, Reports no additional cardiovascular complaints, Denies chest pain and Denies leg edema Respiratory: Respiratory: Reports as per HPI, Reports no additional respiratory complaints, Denies cough and Denies dyspnea Gastrointestinal: Gastrointestinal: Reports as per HPI, Reports no additional gastrointestinal complaints, Denies abdominal pain, Denies diarrhea, Denies nausea and Denies vomiting Genitourinary: Genitourinary: Reports no additional male genitourinary complaints, Reports as per HPI, Reports hematuria and Reports urinary urgency Musculoskeletal: Musculoskeletal: Reports no additional musculoskeletal complaints and Reports as per HPI Integumentary/Breasts: Skin/Breast: Reports system reviewed and no additional complaints, except as docu and Reports as per HPI Neurologic: Reports system reviewed and no additional complaints, except as documented and Reports as per HPI Psychiatric: Psychiatric: Reports no additional psychiatric complaints and Reports as per HPI [facility] Past Medical History Medical History Adenomatous colon polyp Anxiety disorder due to medical condition BMI 26.0-26.9,adult BMI 27.0-27.9,adult BMI 28.0-28.9,adult BMI 29.0-29.9,adult 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 H/O prostate c
[2023-08-25] MEDS: ROSUVASTATIN 10 MG TABLET 20 MG PO (08:56)
[2023-08-25] MEDS: hydroCHLOROthiazide 12.5 MG CAPSULE PO (08:56)
[2023-08-25] MEDS: lisinopriL 20 MG TABLET PO (08:56)
[2023-08-25] MEDS: LEVOTHYROXINE SODIUM 112 MCG TABLET PO (08:56)
[2023-08-25] MEDS: SODIUM CHLORIDE 0.9% IV 1,000 ML 100 ML IV CONT ×2 (08:56→18:48)
[2023-08-25] MEDS: ACETAMINOPHEN 325 MG TABLET 650 MG PO (10:36)
--- NOTE | 2023-08-25 13:39 | WPDURCON ---
Assessment and Plan Assessment and plan (1) Hematuria: Qualifiers: Hematuria type: unspecified type Qualified Code(s): R31.9 - Hematuria, unspecified Code(s): R31.9 - Hematuria, unspecified Status: Acute Assessment and Plan: hx of radiation cystitis, hx of LG TA bladder ca urine clearing on CBI, ok to have diet from standpoint. NPO at midnight. will obtain RBUS to assess for clots. continue abx for suspected UTI, await culture (2) Acute urinary tract infection: Code(s): N39.0 - Urinary tract infection, site not specified Status: Acute (3) Gross hematuria: Code(s): R31.0 - Gross hematuria Status: Acute Urology Consult Note HPI Date Seen: 08/25/23 Requesting Physician: Abdiel Valles MD Primary Care Provider: Les Mason MD Consult Narrative Narrative: Angel Vargas is a 73 year old male of Dr Matias with Hx of CAP tx with IMRT and subsequent XRT cystitis. He presented to ER with retention. Patient had been having GH x 1 week , clots sarted yesterday. GH was painless. UA with + nitrties suspicious for UTI. Denies fevers/chills/ flank pain. No hx of stones. + hx of head and neck CA treated with IMRT and hyperbaric aO2. He has a diagnois of LG TA bladder ca as well. He states he is scheduled later this week for cysto and TURBT for recurrent tumors seen on office cysto a few weeks back. He is felling better on CBI and his urine is peach color. Review of Systems Constitutional: Constitutional: Reports as per HPI and Reports no additional constitutional complaints Eyes: Eyes: Reports as per HPI and Reports no additional eye complaints ENT: Reports as per HPI and Reports Normal hearing present Cardiovascular: Cardiovascular: Reports as per HPI, Reports no additional cardiovascular complaints and Denies chest pain Respiratory: Respiratory: Reports as per HPI, Reports no additional respiratory complaints and Denies dyspnea Gastrointestinal: Gastrointestinal: Reports no additional gastrointestinal complaints and Denies abdominal pain Genitourinary: Genitourinary: Reports as per HPI and Denies flank pain Musculoskeletal: Musculoskeletal: Reports no additional musculoskeletal complaints Integumentary/Breasts: Skin/Breast: Reports system reviewed and no additional complaints, except as docu Neurologic: Reports system reviewed and no additional complaints, except as documented Psychiatric: Psychiatric: Reports no additional psychiatric complaints PMFSH Past Medical History Medical History Adenomatous colon polyp Anxiety disorder due to medical condition BMI 26.0-26.9,adult BMI 27.0-27.9,adult BMI 28.0-28.9,adult BMI 29.0-29.9,adult 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 H/O prostate cancer radiation treatment several 3-4 years ago Hematochezia Hx of malignant neoplasm of prostate Hx of tongue cancer radiation Hyperlipidemia Hypertension Hypothyroid Hypothyroidism Osteomyelitis of mandible Prostate cancer Pure hypercholesterolemia Wrist pain Surgical History Surgical History H/O colonoscopy with polypectomy H/O cystoscopy History of mandibular surgery S/P colonoscopy S/P hernia repair Family History Family History Father Diabetes mellitus Hypertension Acute angina Coronary artery disease Heart disease Mother Congestive heart failure Diabetes mellitus Sibling Myocardial infarction Heart disease Sibling No problems noted. Social History Social History Social History: He is with 1 child. 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 Lifelong nonsmoker. 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 Code
[2023-08-25] MEDS: oxyBUTYnin CHLORIDE 5 MG TABLET PO (23:52)
[2023-08-26] VITALS (12 sets, daily range): BP systolic 109–157; BP diastolic 61–80; PULSE 65–97; RESP 12–21; TEMP 36.4–37.3; O2SAT 98–100
--- NOTE | 2023-08-26 01:22 | PC.NURSE ---
Daylight Savings Time For Daylight Savings Time Ending in the Fall - Clocks are moved back. For Daylight Savings Time Beginning in the Spring - Clocks are moved ahead. For [facility], the time of change occurs at 0200 hrs. Time is taken from the windows server specialist. This entry on the patient's chart recognizes the change in time reflected during documentation. Example: 2 entries for vital signs may be charted for 0200 hrs.
[2023-08-26] MEDS: SODIUM CHLORIDE 0.9% IV 1,000 ML 100 ML IV CONT (03:57)
[2023-08-26] MEDS: LEVOTHYROXINE SODIUM 112 MCG TABLET PO (05:42)
[2023-08-26 05:48] LABS: Basophils Percent Auto 0.6 % (0.2-1.2); Eosinophils Absolute Auto 0.1 K/mm3 (0-0.3); Hematocrit 29.7 % (42.0-52.0); Hemoglobin 9.8 g/dL (14.0-18.0); Immature Granulocyte Absolute 0.01 K/mm3 (0.00-0.031); Immature Granulocyte Percent A 0.1 % (0-0.5); Lymphocytes Absolute Auto 0.75 K/mm3 (0.9-3.2); Lymphocytes Percent Auto 10.5 % (18.3-44.2); Mean Corpuscular Hemoglobin 30.6 pg (26-34); Mean Corpuscular Volume 92.8 fl (80-100); Mean Platelet Volume 8.4 fl (7.4-10.4); Monocytes Absolute Auto 0.8 K/mm3 (0.1-0.6); Monocytes Percent Auto 11.5 % (2.6-8.5); Neutrophils Absolute Auto 5.4 K/mm3 (1.3-6.7); Neutrophils Percent Auto 75.3 % (45.5-73.1); Platelet Count Result 210 k/mm3 (150-375); Red Cell Distribution Width 14.6 % (11.5-14.5); White Blood Count 7.1 K/mm3 (4.5-10.0)
[2023-08-26 06:05] LABS: Alanine Aminotransferase 16 U/L (6-50); Albumin Level 3.6 g/dL (3.5-5.1); Alkaline Phosphatase 41 U/L (38-126); Anion Gap 3 mmol/L (8-16); Aspartate Amino Transferase 25 U/L (17-59); Bilirubin,Total 0.7 mg/dL (0.2-1.3); Blood Urea Nitrogen 14 mg/dL (9-20); Calcium 8.6 mg/dL (8.4-10.2); Carbon Dioxide 28 mmol/L (22-30); Chloride 101 mmol/L (98-107); Estimated CRCL calculation 69 ml/min; Estimated Glomerular Filt Rate > 60; Glucose 96 mg/dL (65-110); Potassium 4.1 mmol/L (3.4-5.0); Sodium 132 mmol/L (137-145)
[2023-08-26] MEDS: ROSUVASTATIN 10 MG TABLET 20 MG PO (08:54)
[2023-08-26] MEDS: lisinopriL 20 MG TABLET PO (08:54)
[2023-08-26] MEDS: hydroCHLOROthiazide 12.5 MG CAPSULE PO (08:55)
--- NOTE | 2023-08-26 10:31 | P.PNIM_ITS ---
Progress Note: A&P Assessment and Plan (1) Acute urinary retention: Code(s): R33.8 - Other retention of urine Status: Acute Assessment and Plan: 08/25/23: * 3 way urinary catheter in place with bladder irrigation, red clear urine draining * Urology consulted * Patient has history of bladder, tongue, and prostate cancer * Monitor strict I and O * Hgb 11.2, Hct 33.3, BUN 22, Creatinine 1.10, WBC 5.9 08/26/23: * Retroperitoneum US showing 6.3 cm left renal cyst with normal kidneys no hydronephrosis, echogenic material representing clot near the novoa catheter bulb in bladder * Urology following * Patient taken to OR today where he underwent a cystoscopy with clot evacuation, biopsy and fulguration of bleeding. * Hgb 9.8, Hct 29.7, BUN 14, Creatinine 0.80, WBC 7.1 * Monitor strict I and O * Will discontinue IV fluids now that patient is eating drinking fluids (2) Acute urinary tract infection: Code(s): N39.0 - Urinary tract infection, site not specified Status: Acute Assessment and Plan: 08/25/23: * UA revealed the +protein, 3+ blood positive nitrates 1+ bili 1+ leukocytes 3-5 urine casts many urine RBCs/ WBCs * urine culture pending * continue with Rocephin 08/26/23: * Continue Rocephin * Spoke with lab about the urine culture, they stated that the specimen did not reflex to a culture, I put through for a culture to be done on the specimen today as we have the patient on antibiotics. (3) Hematuria: Qualifiers: Hematuria type: unspecified type Qualified Code(s): R31.9 - Hematuria, unspecified Code(s): R31.9 - Hematuria, unspecified Status: Acute Assessment and Plan: 08/25/23: * Continuous bladder irrigation * Hgb 11.2, Hct 33.3 * see above 08/26/23: * Hgb 9.8, Hct 29.7 * S/P cystoscopy with clot removal (4) Hypothyroidism: Qualifiers: Hypothyroidism type: unspecified Qualified Code(s): E03.9 - Hypothyroidism, unspecified Code(s): E03.9 - Hypothyroidism, unspecified Status: Acute Assessment and Plan: 08/25/23: * Continue Levothyroxine 112 mcg po daily 08/26/23: * no change to current treatment plan. (5) Hypertension: Qualifiers: Hypertension type: essential hypertension Qualified Code(s): I10 - Essential (primary) hypertension Code(s): I10 - Essential (primary) hypertension Status: Acute Assessment and Plan: 08/25/23: * Blood pressure ranging 142/71-165/92 * Continue Lisinopril 20 mg po daily * Continue Hydrochlorothiazide 12.5 mg po daily 08/26/23: * Blood pressures ranging 120/63-135/74 * Continue with current treatment plan (6) Hyperlipidemia: Code(s): E78.5 - Hyperlipidemia, unspecified Status: Acute Assessment and Plan: 08/25/23: * Continue Rosuvastatin 20 mg po daily 08/26/23: * No change to current treatment plan Time Spent With Patient Time with patient: 25 - 35 minutes Subjective Date/time seen: 08/26/23 10:31 Interval history: Interval history 08/25/23: This is a 73 year old male with a significant past medical history of prostate c ancer, bladder cancer, tongue cancer, hyperlipidemia, hypothyroidism and hypertension presented with hematuria.? Patient states that he has had hematuria for about a week now.? He follows with Dr. Matias over in [place] at [facility].? Patient states that he has hematuria from time to time ever since his last radiation treatment [address] Matias has seen him about 2
--- NOTE | 2023-08-26 10:31 | PM.IMPN ---
Progress Note: A&P Assessment and Plan (1) Acute urinary retention: Code(s): R33.8 - Other retention of urine Status: Acute Assessment and Plan: 08/25/23: 3 way urinary catheter in place with bladder irrigation, red clear urine draining Urology consulted Patient has history of bladder, tongue, and prostate cancer Monitor strict I and O Hgb 11.2, Hct 33.3, BUN 22, Creatinine 1.10, WBC 5.9 08/26/23: Retroperitoneum US showing 6.3 cm left renal cyst with normal kidneys no hydronephrosis, echogenic material representing clot near the novoa catheter bulb in bladder Urology following Patient taken to OR today where he underwent a cystoscopy with clot evacuation, biopsy and fulguration of bleeding. Hgb 9.8, Hct 29.7, BUN 14, Creatinine 0.80, WBC 7.1 Monitor strict I and O Will discontinue IV fluids now that patient is eating drinking fluids (2) Acute urinary tract infection: Code(s): N39.0 - Urinary tract infection, site not specified Status: Acute Assessment and Plan: 08/25/23: UA revealed the +protein, 3+ blood positive nitrates 1+ bili 1+ leukocytes 3-5 urine casts many urine RBCs/ WBCs urine culture pending continue with Wiley 08/26/23: Continue Wiley Spoke with lab about the urine culture, they stated that the specimen did not reflex to a culture, I put through for a culture to be done on the specimen today as we have the patient on antibiotics. (3) Hematuria: Qualifiers: Hematuria type: unspecified type Qualified Code(s): R31.9 - Hematuria, unspecified Code(s): R31.9 - Hematuria, unspecified Status: Acute Assessment and Plan: 08/25/23: Continuous bladder irrigation Hgb 11.2, Hct 33.3 see above 08/26/23: Hgb 9.8, Hct 29.7 S/P cystoscopy with clot removal (4) Hypothyroidism: Qualifiers: Hypothyroidism type: unspecified Qualified Code(s): E03.9 - Hypothyroidism, unspecified Code(s): E03.9 - Hypothyroidism, unspecified Status: Acute Assessment and Plan: 08/25/23: Continue Levothyroxine 112 mcg po daily 08/26/23: no change to current treatment plan. (5) Hypertension: Qualifiers: Hypertension type: essential hypertension Qualified Code(s): I10 - Essential (primary) hypertension Code(s): I10 - Essential (primary) hypertension Status: Acute Assessment and Plan: 08/25/23: Blood pressure ranging 142/71-165/92 Continue Lisinopril 20 mg po daily Continue Hydrochlorothiazide 12.5 mg po daily 08/26/23: Blood pressures ranging 120/63-135/74 Continue with current treatment plan (6) Hyperlipidemia: Code(s): E78.5 - Hyperlipidemia, unspecified Status: Acute Assessment and Plan: 08/25/23: Continue Rosuvastatin 20 mg po daily 08/26/23: No change to current treatment plan Time Spent With Patient Time with patient: 25 - 35 minutes Subjective Date/time seen: 08/26/23 10:31 Interval history: Interval history 08/25/23: This is a 73 year old male with a significant past medical history of prostate cancer, bladder cancer, tongue cancer, hyperlipidemia, hypothyroidism and hypertension presented with hematuria.? Patient states that he has had hematuria for about a week now.? He follows with Dr. Matias over in [place] at [facility].? Patient states that he has hematuria from time to time ever since his last radiation treatment [address] Matias has seen him about 2 months ago where they removed some polyps in his bladder and did some bladder irrigation on an outpatient basis.? He was told at that time that he will likely have more episodes of hematuria.? This time he was having some urinary retention with urgency due to the blood clots.? He was supposed to see Dr. Matias on of this week for another bladder irrigation however his symptoms started to become worse and so he presented for further workup.? Work up in hospital inclu
--- NOTE | 2023-08-26 10:45 | WPDUROPN2 ---
Progress Note: A&P Assessment and Plan (1) Acute urinary retention: Code(s): R33.8 - Other retention of urine Status: Acute (2) Hematuria: Qualifiers: Hematuria type: unspecified type Qualified Code(s): R31.9 - Hematuria, unspecified Code(s): R31.9 - Hematuria, unspecified Status: Acute Assessment and Plan: gross hematuria persists despite CBI, hgb drifted down, RBUS shows small clots plan for cysto clot evac and fulgeration of bleeding. risks/benefits/alternatives nature of procedure reviewed he is agreeable to proceed. NPO, consent Subjective Subjective Date/Time Seen: 08/26/23 10:45 Interval history: still with GH on CBI. hgb down. denies CP/SOB or spasms. wants to proceed with clot evac, concerned he will continue to bleed Review of Systems Constitutional: Constitutional: Reports as per HPI, Reports no additional constitutional complaints and Denies body ache(s) Eyes: Eyes: Reports as per HPI ENT: Reports system reviewed and no additional complaints, except as documented Cardiovascular: Cardiovascular: Denies chest pain Respiratory: Respiratory: Denies dyspnea Gastrointestinal: Gastrointestinal: Denies abdominal pain Genitourinary: Genitourinary: Reports no additional male genitourinary complaints Musculoskeletal: Musculoskeletal: Reports no additional musculoskeletal complaints Integumentary/Breasts: Skin/Breast: Reports system reviewed and no additional complaints, except as docu Exam Const: General: comfortable and no acute distress HENMT: Face/Nose/Sinus: Normal nares present Eyes: General: appearance normal, both eyes and all related structures EOM: EOMs intact bilaterally Resp: Effort & Inspection: normal respiratory effort Cardio: Rate: regular rate Rhythm: regular rhythm GI: Inspection: non-distended GI Palp: Yes Soft to palpation, No Tenderness to palpation present (GI) and No Guarding due to palpation present (GI) : General: Yes bladder normal to palpation Urinary Catheter: Urinary Catheter: patent and draining and urine pink (moderate drip cbi) Extrem: General: normal to inspection and no edema Psych: Mental Status: mental status grossly normal Objective Data Vital Signs Vital Signs: Vital Signs - 24 hr 08/25/23 13:40 08/25/23 20:00 08/25/23 20:00 Temperature 36.4 C L 36.6 C Pulse Rate 74 73 Respiratory Rate 18 20 Blood Pressure 158/78 H 127/58 L Pulse Oximetry 100 98 Oxygen Delivery Room Air 08/26/23 00:00 08/26/23 04:55 Temperature 36.5 C 36.9 C Pulse Rate 65 94 Respiratory Rate 20 21 H Blood Pressure 120/63 135/74 Pulse Oximetry 99 100 Oxygen Delivery Intake/Output Intake/Output: Intake & Output 08/23/23 08/24/23 08/25/23 08/26/23 23:59 23:59 23:59 22:59 Intake Total 5290 1000 Output Total 6300 1150 Balance -1010 -150 Meds/Results Medications: Active Medications Generic Name Dose Route Start Last Admin Trade Name Freq PRN Reason Stop Dose Admin Acetaminophen 650 mg 08/25/23 08:11 08/25/23 10:36 Acetaminophen 325 Mg Tablet PO 650 mg Q4H PRN Administration Mild Pain (1-3) or Fever Hydrochlorothiazide 12.5 mg 08/25/23 09:00 08/26/23 08:55 Hydrochlorothiazide 12.5 Mg Capsule PO 12.5 mg QAM ANNIE Administration Ceftriaxone Sodium 1 gm in 50 mls @ 100 mls/hr 08/26/23 06:00 08/26/23 05:45 Rocephin 1 Gm/Ns 50 Ml IVPB 100 mls/hr Q24H ANNIE Administration Sodium Chloride 1,000 mls @ 100 mls/hr 08/25/23 08:15 08/26/23 03:57 Normal Saline Iv IV CONT 100 mls/hr .Q10H ANNIE Administration Levothyroxine Sodium 112 mcg 08/25/23 08:30 08/26/23 05:42 Levothyroxine Sodium 112 Mcg Tablet PO 112 mcg DAILY@0630 ANNIE Administration Lisinopril 20 mg 08/25/23 09:00 08/26/23 08:54 Lisinopril 20 Mg Tablet PO 20 mg DAILY ANNIE Administration Ondansetron HCl 4 mg 08/25/23 08:11 Ondansetron Inj 4 Mg/2 Ml Vial IV PUSH
--- NOTE | 2023-08-26 10:49 | WPDANESEPPF ---
Anes - Initial Pre Proc Eval Procedure: cysto clot evac Date/Time: 08/26/23 10:49 Surgeon: Abdiel Valles MD Pre Op Diagnosis: Hematuria,Clot Retention Patient Data Age: 73 Gender: M Height: 1.73 m Weight: 79 kg Last Vital Signs Temp 36.9 C 08/26/23 04:55 Pulse 94 08/26/23 04:55 Resp 21 H 08/26/23 04:55 BP 135/74 08/26/23 04:55 Pulse Ox 100 08/26/23 04:55 O2 Del Method Room Air 08/25/23 20:00 Allergies Allergy/AdvReac Type Severity Reaction Status Date / Time No Known Allergies Allergy Unknown Verified 08/30/23 11:14 Home Medications Medication Instructions Recorded Confirmed Type rosuvastatin 20 mg tablet 20 mg PO DAILY #90 tabs 04/12/23 08/28/23 Rx levothyroxine 112 mcg tablet 112 mcg PO DAILY #90 tabs 07/05/23 08/30/23 Rx hydrochlorothiazide 25 mg tablet 12.5 mg PO DAILY #90 tabs 07/16/23 08/28/23 Rx lisinopril 20 mg tablet 20 mg PO DAILY #90 tabs 07/16/23 08/28/23 Rx cefdinir 300 mg capsule 300 mg PO Q12HR 7 days #14 caps 08/27/23 08/30/23 Rx hydrocodone 5 mg-acetaminophen 325 1 - 2 tablet PO Q6H PRN pain #20 08/30/23 Rx mg tablet tabs Laboratory Tests 08/26/23 05:39 WBC 7.1 K/mm3 (4.5-10.0) RBC 3.20 L M/mm3 (4.6-6.20) Hgb 9.8 L g/dL (14.0-18.0) Hct 29.7 L % (42.0-52.0) MCV 92.8 fl (80-100) MCH 30.6 pg (26-34) MCHC 33.0 g/dl (32-36) RDW 14.6 H % (11.5-14.5) Plt Count 210 k/mm3 (150-375) MPV 8.4 fl (7.4-10.4) Immature Gran % (Auto) 0.1 % (0-0.5) Neut % (Auto) 75.3 H % (45.5-73.1) Lymph % (Auto) 10.5 L % (18.3-44.2) [place] % (Auto) 11.5 H % (2.6-8.5) Eos % (Auto) 2.0 % (0-4.4) Baso % (Auto) 0.6 % (0.2-1.2) Lymph # (Auto) 0.75 L K/mm3 (0.9-3.2) [place] # (Auto) 0.8 H K/mm3 (0.1-0.6) Eos # (Auto) 0.1 K/mm3 (0-0.3) Baso # (Auto) 0.0 K/mm3 (0.0-0.1) Abs Immat Gran (auto) 0.01 K/mm3 (0.00-0.031) Absolute Neuts (auto) 5.4 K/mm3 (1.3-6.7) Absolute Nucleated RBC 0.0 K/mm3 (0.0-0.012) Nucleated RBC % 0.0 % (0.0-0.2) Sodium 132 L mmol/L (137-145) Potassium 4.1 mmol/L (3.4-5.0) Chloride 101 mmol/L (98-107) Carbon Dioxide 28 mmol/L (22-30) Anion Gap 3 L mmol/L (8-16) BUN 14 D mg/dL (9-20) Creatinine 0.80 mg/dL (0.7-1.3) Estim Creat Clear Calc 69 ml/min Estimated GFR > 60 (59 - ) Glucose 96 mg/dL (65-110) Calcium 8.6 mg/dL (8.4-10.2) Total Bilirubin 0.7 mg/dL (0.2-1.3) AST 25 U/L (17-59) ALT 16 U/L (6-50) Alkaline Phosphatase 41 U/L (38-126) Total Protein 7.0 g/dL (6.3-8.2) Albumin 3.6 g/dL (3.5-5.1) Patient hx anesthesia problems: none Family hx anesthesia problems: none Results Review: All pre-operative results and documents have been reviewed as part of the pre-operative evaluation. [facility] Past Medical History Medical History Adenomatous colon polyp Anxiety disorder due to medical condition BMI 26.0-26.9,adult BMI 27.0-27.9,adult BMI 28.0-28.9,adult BMI 29.0-29.9,adult 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 H/O prostate cancer radiation treatment several 3-4 years ago Hematochezia Hx of malignant neoplasm of prostate Hx of tongue cancer radiation Hyperlipidemia Hypertension Hypothyroid Hypothyroidism Osteomyelitis of mandible Prostate cancer Pure hypercholesterolemia Wrist pain Surgical History Surgical History H/O colonoscopy with polypectomy H/O cystoscopy History of mandibular surgery S/P colonoscopy S/P hernia repair Family History Family History Father Diabetes mellitus Hypertension Acute angina Coronary artery disease Heart disease Mother Congestive heart failure Diabetes mellitus Sibling
--- NOTE | 2023-08-26 11:14 | PC.NURSE ---
Pt to pre op via stretcher @ 1100
--- NOTE | 2023-08-26 11:38 | WPDHPUPDATE1 ---
History and Physical Update Update Date/Time: 08/26/23 11:38 History and Physical has been reviewed, including an updated exam of the patient. There are NO changes in the patient's condition. Risks, benefits, and alternatives have been discussed and questions answered. Patient agrees to proceed with procedure.
--- NOTE | 2023-08-26 12:23 | P.OP_ITS ---
Procedure Note - Detailed Date of Procedure 08/26/23 Pre-op Diagnosis Hematuria,Clot Retention Post-op Diagnosis Same Procedure Performed cystoscopy with clot evacuation, biopsy and fulgeration of bleeding Surgeon Anibal Martinez MD Anesthesia General Indications gross hematuria with clots Findings radiation cystitis, papillary bladder tumors involving bladder and bladder neck Description of Procedure description of procedure: Patient was brought back to the operating room and given general anesthesia via LMA. He was prepped and draped in standard fashion in the dorsal lithotomy position with betadine scrub. Care was taken to not hyperflex or hyperextend any extremity all bony prominences padded. He received IV Rocephin on the floor this am. after appropriate time-out and patient identifiers were used, a 22 Fr cystoscope was inserted into the bladder, 100 cc of well formed clot was evacuated from the bladder with use of lisa syringe. There were radiation changes to the trigone, there was catheter cystitis, He had single orthotpic ureteral orifices effluxing clear urine. There was actively bleeding papillary tumors on the left posterolateral wall and right anterolateral wall near the bladder neck. The actively bleeding areas were cauterized with use of bugbee electrocautery. One of the tumors was biopsied. It was fulgerated. No active bleeding seen. TURBT was not fully performed due f or need for GETA and paralysis given risk of potential obturator reflex and bladder perforation. Bladder was irrigated and inspected. there is still residual tumor circumferental around anterior bladder neck seen with 70 degree lens. A [address] novoa was placed and put on CBI with 0.9% NS. No immediate complications Urine was draining clear on slow drip. He was awakened and transferred to PACU in stable condition. I discussed findings with family. he will need definitive TURBT with intravesical chemo when acute issues subside as there is residual tumor. . Estimated Blood Loss 100 Drains Yes (22fr 3 way hematuria cath) Pathology Yes (bladder biopsy) Complications No immediate complications Condition Stable Disposition PACU
[2023-08-26] MEDS: LACTATED RINGERS 1,000 ML 30 ML IV CONT (12:31)
--- NOTE | 2023-08-26 12:54 | PC.NURSE ---
i was unable to chart in phase 1 so i charted on the floor charting. all charting done at 1249 really done at 1231.
--- NOTE | 2023-08-26 13:21 | PC.NURSE ---
cbi running clear, gave report to floor rn. pt has no pain/no nausea. taking to room now.
[2023-08-26] MEDS: oxyBUTYnin CHLORIDE 5 MG TABLET PO (15:58)
--- NOTE | 2023-08-26 17:57 | PC.NURSE ---
Pt stating bladder spasms not relieved by one time dose of ditropan. Water Truck Driver contacted Dr Martinez who gave verbal order to DC novoa catheter.
[2023-08-27 04:11] VITALS: BP 120/73; PULSE 72; RESP 16; TEMP 36.3; O2SAT 99
[2023-08-27 06:07] LABS: Basophils Percent Auto 0.4 % (0.2-1.2); Eosinophils Percent Auto 0.5 % (0-4.4); Hematocrit 28.7 % (42.0-52.0); Hemoglobin 9.5 g/dL (14.0-18.0); Immature Granulocyte Absolute 0.02 K/mm3 (0.00-0.031); Immature Granulocyte Percent A 0.3 % (0-0.5); Lymphocytes Absolute Auto 0.96 K/mm3 (0.9-3.2); Lymphocytes Percent Auto 13.2 % (18.3-44.2); Mean Corpuscular HGB Conc 33.1 g/dl (32-36); Mean Corpuscular Hemoglobin 30.7 pg (26-34); Mean Corpuscular Volume 92.9 fl (80-100); Mean Platelet Volume 9.2 fl (7.4-10.4); Monocytes Absolute Auto 0.7 K/mm3 (0.1-0.6); Monocytes Percent Auto 9.6 % (2.6-8.5); Neutrophils Absolute Auto 5.6 K/mm3 (1.3-6.7); Platelet Count Result 225 k/mm3 (150-375); Red Blood Count 3.09 M/mm3 (4.6-6.20); Red Cell Distribution Width 14.5 % (11.5-14.5); White Blood Count 7.3 K/mm3 (4.5-10.0)
[2023-08-27] MEDS: LEVOTHYROXINE SODIUM 112 MCG TABLET PO (06:09)
[2023-08-27 06:16] LABS: Alanine Aminotransferase 17 U/L (6-50); Albumin Level 3.7 g/dL (3.5-5.1); Alkaline Phosphatase 44 U/L (38-126); Anion Gap 6 mmol/L (8-16); Aspartate Amino Transferase 22 U/L (17-59); Bilirubin,Total 0.6 mg/dL (0.2-1.3); Blood Urea Nitrogen 12 mg/dL (9-20); Calcium 8.7 mg/dL (8.4-10.2); Carbon Dioxide 27 mmol/L (22-30); Chloride 99 mmol/L (98-107); Estimated CRCL calculation 69 ml/min; Estimated Glomerular Filt Rate > 60; Glucose 100 mg/dL (65-110); Potassium 3.5 mmol/L (3.4-5.0); Sodium 132 mmol/L (137-145)
[2023-08-27] MEDS: ROSUVASTATIN 10 MG TABLET 20 MG PO (09:24)
[2023-08-27] MEDS: hydroCHLOROthiazide 12.5 MG CAPSULE PO (09:24)
[2023-08-27] MEDS: lisinopriL 20 MG TABLET PO (09:25)
--- NOTE | 2023-08-27 09:46 | WPDUROPN2 ---
Progress Note: A&P Assessment and Plan (1) Acute urinary retention: Code(s): R33.8 - Other retention of urine Status: Acute Assessment and Plan: Resolved, urinating and emptying well. (2) Hematuria: Qualifiers: Hematuria type: unspecified type Qualified Code(s): R31.9 - Hematuria, unspecified Code(s): R31.9 - Hematuria, unspecified Status: Acute Assessment and Plan: Urine Clear today in urinal. (3) Bladder cancer: Code(s): C67.9 - Malignant neoplasm of bladder, unspecified Status: Acute Assessment and Plan: Ok to discharge home per urology at anytime. He will f/u on , August 30 at 12:00pm, arrive at 10am for his TURBT with Gemcitabine instillation with Dr. Matias at [facility]. Subjective Subjective Date/Time Seen: 08/27/23 09:46 Post Op day: 1 Principal diagnosis: Gross Hematuria Interval history: Cystoscopy with clot evacuation, biopsy and fulguration of bleeding Lindsey out, urine clear. Pt. doing very well. Planning to go home today. He is tolerating diet and activity. Review of Systems Constitutional: Constitutional: Reports no additional constitutional complaints Cardiovascular: Cardiovascular: Denies chest pain Respiratory: Respiratory: Reports no additional respiratory complaints Gastrointestinal: Gastrointestinal: Denies abdominal pain, Denies nausea and Denies vomiting Genitourinary: Genitourinary: Denies hematuria, Denies genital pain, Denies dysuria, Denies flank pain, Denies urinary frequency, Denies urinary hesitancy, Denies urinary incontinence and Denies urinary urgency Exam Const: General: cooperative and comfortable Resp: Effort & Inspection: normal respiratory effort Cardio: Rate: regular rate GI: GI Palp: Yes Soft to palpation and No Tenderness to palpation present (GI) : General: Yes no CVA tenderness Extrem: Right lower extremity: no edema Left lower extremity: no edema Objective Data Vital Signs Vital Signs: Vital Signs - 24 hr 08/26/23 12:49 08/26/23 12:45 08/26/23 13:00 Temperature 99.1 F Pulse Rate 89 87 84 Respiratory Rate 14 13 12 Blood Pressure 148/80 H 137/76 149/75 H Pulse Oximetry 100 98 99 08/26/23 13:15 08/26/23 13:22 08/26/23 13:40 Temperature 97.8 F Pulse Rate 92 77 77 Respiratory Rate 16 13 16 Blood Pressure 154/80 H 149/77 H 157/71 H Pulse Oximetry 100 100 98 08/26/23 14:10 08/26/23 15:15 08/26/23 16:20 Temperature 97.7 F 98.3 F 97.6 F Pulse Rate 77 97 83 Respiratory Rate 16 16 16 Blood Pressure 144/76 H 125/75 157/61 H Pulse Oximetry 99 98 100 08/26/23 20:34 08/27/23 04:11 Temperature 97.5 F L 97.3 F L Pulse Rate 74 72 Respiratory Rate 14 16 Blood Pressure 109/69 120/73 Pulse Oximetry 98 99 Intake/Output Intake/Output: Intake & Output 08/25/23 08/26/23 08/26/23 08/27/23 00:59 00:59 23:59 23:59 Intake Total 490 Output Total Balance 490 Meds/Results Medications: Active Medications Generic Name Dose Route Start Last Admin Trade Name Freq PRN Reason Stop Dose Admin Acetaminophen 650 mg 08/25/23 08:11 08/25/23 10:36 Acetaminophen 325 Mg Tablet PO 650 mg Q4H PRN Administration Mild Pain (1-3) or Fever Hydrochlorothiazide 12.5 mg 08/25/23 09:00 08/27/23 09:24 Hydrochlorothiazide 12.5 Mg Capsule PO 12.5 mg QAM ANNIE Administration Ceftriaxone Sodium 1 gm in 50 mls @ 100 mls/hr 08/26/23 06:00 08/27/23 06:09 Rocephin 1 Gm/Ns 50 Ml IVPB 100 mls/hr Q24H ANNEI Administration Levothyroxine Sodium 112 mcg 08/25/23 08:30 08/27/23 06:09 Levothyroxine Sodium 112 Mcg Tablet PO 112 mcg DAILY@0630 ANNIE Administration Lisinopril 20 mg 08/25/23 09:00 08/27/23 09:25 Lisinopril 20 Mg Tablet PO 20 mg DAILY ANNIE Administration Ondansetron HCl 4 mg 08/25/23 08:11 Ondansetron Inj 4 Mg/2 Ml Vial IV PUSH Q6H PRN Nausea And Vomiting Rosuvastatin Calcium 20 mg
--- NOTE | 2023-08-27 09:55 | P.PNIM_ITS ---
Progress Note: A&P Assessment and Plan (1) Acute urinary retention: Code(s): R33.8 - Other retention of urine Status: Acute Assessment and Plan: 08/25/23: * 3 way urinary catheter in place with bladder irrigation, red clear urine draining * Urology consulted * Patient has history of bladder, tongue, and prostate cancer * Monitor strict I and O * Hgb 11.2, Hct 33.3, BUN 22, Creatinine 1.10, WBC 5.9 08/26/23: * Retroperitoneum US showing 6.3 cm left renal cyst with normal kidneys no hydronephrosis, echogenic material representing clot near the novoa catheter bulb in bladder * Urology following * Patient taken to OR today where he underwent a cystoscopy with clot evacuation, biopsy and fulguration of bleeding. * Hgb 9.8, Hct 29.7, BUN 14, Creatinine 0.80, WBC 7.1 * Monitor strict I and O * Will discontinue IV fluids now that patient is eating drinking fluids 08/27/23: * (2) Acute urinary tract infection: Code(s): N39.0 - Urinary tract infection, site not specified Status: Acute Assessment and Plan: 08/25/23: * UA revealed the +protein, 3+ blood positive nitrates 1+ bili 1+ leukocytes 3-5 urine casts many urine RBCs/ WBCs * urine culture pending * continue with Rocephin 08/26/23: * Continue Rocephin * Spoke with lab about the urine culture, they stated that the specimen did not reflex to a culture, I put through for a culture to be done on the specimen today as we have the patient on antibiotics. 08/27/23: * Urine culture pending * Continue Rocephin (3) Hematuria: Qualifiers: Hematuria type: unspecified type Qualified Code(s): R31.9 - Hematuria, unspecified Code(s): R31.9 - Hematuria, unspecified Status: Acute Assessment and Plan: 08/25/23: * Continuous bladder irrigation * Hgb 11.2, Hct 33.3 * see above 08/26/23: * Hgb 9.8, Hct 29.7 * S/P cystoscopy with clot removal 08/27/23: * Hgb 9.5, Hct 28.7, remains stable * Post op day 1 from cystoscopy with clot removal, continued bladder irrigation yesterday * (4) Hypothyroidism: Qualifiers: Hypothyroidism type: unspecified Qualified Code(s): E03.9 - Hypothyroidism, unspecified Code(s): E03.9 - Hypothyroidism, unspecified Status: Acute Assessment and Plan: 08/25/23: * Continue Levothyroxine 112 mcg po daily 08/26/23: * no change to current treatment plan. (5) Hypertension: Qualifiers: Hypertension type: essential hypertension Qualified Code(s): I10 - Essential (primary) hypertension Code(s): I10 - Essential (primary) hypertension Status: Acute Assessment and Plan: 08/25/23: * Blood pressure ranging 142/71-165/92 * Continue Lisinopril 20 mg po daily * Continue Hydrochlorothiazide 12.5 mg po daily 08/26/23: * Blood pressures ranging 120/63-135/74 * Continue with current treatment plan 08/27/23: * Blood pressures ranging 109/69-120/73 * No change to current treatment plan (6) Hyperlipidemia: Code(s): E78.5 - Hyperlipidemia, unspecified Status: Acute Assessment and Plan: 08/25/23: * Continue Rosuvastatin 20 mg po daily 08/26/23: * No change to current treatment plan Time Spent With Patient Time with patient: 25 - 35 minutes Subjective Date/time seen: 08/27/23 09:55 Interval history: Interval history 08/25/23: This is a 73 year old male with a significant past medical history of prostate cancer, bladder cancer, to
--- NOTE | 2023-08-27 09:55 | PM.IMPN ---
Progress Note: A&P Assessment and Plan (1) Acute urinary retention: Code(s): R33.8 - Other retention of urine Status: Acute Assessment and Plan: 08/25/23: 3 way urinary catheter in place with bladder irrigation, red clear urine draining Urology consulted Patient has history of bladder, tongue, and prostate cancer Monitor strict I and O Hgb 11.2, Hct 33.3, BUN 22, Creatinine 1.10, WBC 5.9 08/26/23: Retroperitoneum US showing 6.3 cm left renal cyst with normal kidneys no hydronephrosis, echogenic material representing clot near the novoa catheter bulb in bladder Urology following Patient taken to OR today where he underwent a cystoscopy with clot evacuation, biopsy and fulguration of bleeding. Hgb 9.8, Hct 29.7, BUN 14, Creatinine 0.80, WBC 7.1 Monitor strict I and O Will discontinue IV fluids now that patient is eating drinking fluids 08/27/23: (2) Acute urinary tract infection: Code(s): N39.0 - Urinary tract infection, site not specified Status: Acute Assessment and Plan: 08/25/23: UA revealed the +protein, 3+ blood positive nitrates 1+ bili 1+ leukocytes 3-5 urine casts many urine RBCs/ WBCs urine culture pending continue with Rocviki 08/26/23: Continue Rocephin Spoke with lab about the urine culture, they stated that the specimen did not reflex to a culture, I put through for a culture to be done on the specimen today as we have the patient on antibiotics. 08/27/23: Urine culture pending Continue Rocephin (3) Hematuria: Qualifiers: Hematuria type: unspecified type Qualified Code(s): R31.9 - Hematuria, unspecified Code(s): R31.9 - Hematuria, unspecified Status: Acute Assessment and Plan: 08/25/23: Continuous bladder irrigation Hgb 11.2, Hct 33.3 see above 08/26/23: Hgb 9.8, Hct 29.7 S/P cystoscopy with clot removal 08/27/23: Hgb 9.5, Hct 28.7, remains stable Post op day 1 from cystoscopy with clot removal, continued bladder irrigation yesterday (4) Hypothyroidism: Qualifiers: Hypothyroidism type: unspecified Qualified Code(s): E03.9 - Hypothyroidism, unspecified Code(s): E03.9 - Hypothyroidism, unspecified Status: Acute Assessment and Plan: 08/25/23: Continue Levothyroxine 112 mcg po daily 08/26/23: no change to current treatment plan. (5) Hypertension: Qualifiers: Hypertension type: essential hypertension Qualified Code(s): I10 - Essential (primary) hypertension Code(s): I10 - Essential (primary) hypertension Status: Acute Assessment and Plan: 08/25/23: Blood pressure ranging 142/71-165/92 Continue Lisinopril 20 mg po daily Continue Hydrochlorothiazide 12.5 mg po daily 08/26/23: Blood pressures ranging 120/63-135/74 Continue with current treatment plan 08/27/23: Blood pressures ranging 109/69-120/73 No change to current treatment plan (6) Hyperlipidemia: Code(s): E78.5 - Hyperlipidemia, unspecified Status: Acute Assessment and Plan: 08/25/23: Continue Rosuvastatin 20 mg po daily 08/26/23: No change to current treatment plan Time Spent With Patient Time with patient: 25 - 35 minutes Subjective Date/time seen: 08/27/23 09:55 Interval history: Interval history 08/25/23: This is a 73 year old male with a significant past medical history of prostate cancer, bladder cancer, tongue cancer, hyperlipidemia, hypothyroidism and hypertension presented with hematuria.? Patient states that he has had hematuria for about a week now.? He follows with Dr. Matias over in [place] at [facility].? Patient states that he has hematuria from time to time ever since his last radiation treatment [address] Matias has seen him about 2 months ago where they removed some polyps in his bladder and did some bladder irrigation on an outpatient basis.? He was told at that time that he will likely have more episodes o
[2023-08-27] MEDS: ACETAMINOPHEN 325 MG TABLET 650 MG PO (12:48)
[2023-08-27 14:00] VITALS: BP 125/55; PULSE 71; RESP 14; TEMP 36.6; O2SAT 100
--- NOTE | 2023-08-27 14:58 | PM.DS ---
DS: Admitting Diagnosis Discharge Date 08/27/23 Admitting Diagnosis Acute urinary retention Urinary tract infection Hematuria Hypothyroidism Hypertension Hyperlipidemia DS: Discharge Diagnosis Discharge Diagnosis (1) Acute urinary retention: Code(s): R33.8 - Other retention of urine Status: Acute (2) Acute urinary tract infection: Code(s): N39.0 - Urinary tract infection, site not specified Status: Acute (3) Hematuria: Qualifiers: Hematuria type: unspecified type Qualified Code(s): R31.9 - Hematuria, unspecified Code(s): R31.9 - Hematuria, unspecified Status: Acute (4) Hypothyroidism: Qualifiers: Hypothyroidism type: unspecified Qualified Code(s): E03.9 - Hypothyroidism, unspecified Code(s): E03.9 - Hypothyroidism, unspecified Status: Acute (5) Hypertension: Qualifiers: Hypertension type: essential hypertension Qualified Code(s): I10 - Essential (primary) hypertension Code(s): I10 - Essential (primary) hypertension Status: Acute (6) Hyperlipidemia: Code(s): E78.5 - Hyperlipidemia, unspecified Status: Acute DS: Summary Hospital Course Reason for hospitalization: Urinary retention with hematuria Very tract infection Hospital Course: This is a 73-year-old male with a significant past medical history of prostate cancer, bladder cancer, tongue cancer, hypo thyroidism, hyperlipidemia, hypertension who presents with urinary retention with hematuria. Patient is followed by urologist Dr. Polly ohara in [place] at [facility] on an outpatient basis. Workup in the hospital included a urinalysis showing 3+ protein, 3+ blood, positive nitrates, 1+ bili, 1+ leukocytes, and 3-5 urine casts, many urine rbc's and wbc's. His BUN is 22, creatinine is 1.1 on admission. Urine culture was obtained and is pending. Patient was placed on Rocephin IV. Urology was also consulted. On 08/26/2023 patient had a retroperitoneal ultrasound done which showed a 6.3 cm left renal cyst, otherwise normal kidneys with no hydronephrosis, echogenic material likely representing clot surrounding a Lindsey catheter old within the bladder. Urology took patient to the OR on the and underwent a cystoscopy with clot evacuation, biopsy, and fulguration of bleeding. He was on continuous bladder irrigation from the time he came in to early this morning when that was discontinued by [facility]. He was switched to oral cefdinir for the next 7 days for his UTI. Urine cultures are still pending. On examination today patient is alert and oriented x4, ambulating in his room. VSS, he is afebrile, and currently on room air. Patient states bladder spasms whenever the Lindsey catheter was removed. He has no pain. Labs today reveal WBC 7.3, RBC 3.09, Hgb 9.5, Hct 28.7, Na+ 132, K+ 3.5, BUN 12, Creatinine 0.80, BG ranging 96-100, Liver enzymes normal. Urine culture pending. Patient continues Rocephin IV. Patient is stable for discharge. He will follow-up with Dr. Matias on as this was his original appointment. We will send a prescription for cefdinir to cover for a UTI until cultures come back. He will need to follow up with his primary care as well in 1 week. Status at Discharge Cognitive/behavioral status at discharge: Alert oriented x4 Functional status at discharge: independent ambulation Overall status at discharge: patient is progressing back to baseline Time Spent with Patient Time attestation: Total time spent providing and/or coordinating discharge services: Time spent: Greater than 30 minutes Exam Narrative: General: In no acute distress, well nourished Head: atraumatic, no encephalopathy Eyes: EOMI, PERRLA, sclera clear ENT: moist mucous membranes, nasal passages clear Neck: supple, no JVD, no adenopathy, trachea midline Cardiac: Normal S1 and S2. No murmur, gallops or friction rubs, peripheral pulses intact. Respirat
== END 2023-08-27 16:00 | disposition home or self-care (01) | DRG 664 ==
LOC: ANHED 06:14 → ANH3MED 06:25
PROVIDERS: Urology; Admitting Provider Internal Medicine; Emergency Provider Student in an Organized Health Care Education/Training Program; PCP Family Medicine; Visit Provider Nurse Practitioner Acute Care
PROC: 0TCB8ZZ Extirpation of Matter from Bladder, Via Natural or Artificial Opening Endoscopic (ICD-10-PCS; CPT 52001; principal; 2023-08-26 12:30)
DX: N30.41 Irradiation cystitis with hematuria (principal); D41.4 Neoplasm of uncertain behavior of bladder; R33.8 Other retention of urine; I10 Essential (primary) hypertension; F06.4 Anxiety disorder due to known physiological condition; E78.5 Hyperlipidemia, unspecified; E03.9 Hypothyroidism, unspecified; Z85.51 Personal history of malignant neoplasm of bladder; Z85.46 Personal history of malignant neoplasm of prostate; Z85.810 Personal history of malignant neoplasm of tongue
CPT/HCPCS: 36415; 76770; 80053; 81001; 85025; 85610; 85730; 87086; 88305; 96365; 96375; 99285; A9270; C1757; G0378; J0696; J1100; J2270; J2405; J2704; J3010; J7030; J7120

== ENCOUNTER 2023-08-30 01:47 | Day surgery (SDC) | payer MEDICARE, SELFPAY ==
[2023-08-28 09:59] VITALS: BMI 26.6
--- NOTE | 2023-08-28 10:04 | PC.NURSE ---
Report to the Outpatient Waiting Room, entrance under the green pavilion located off [facility], at time __1000 on date __08/30/23 . Planned Procedure Time: __1200 . Time changes happen often and if your time is changed the preop area will call you the afternoon before. - You and your visitor will be asked to self-screen and do not enter if you have any COVID symptoms. - A mask is optional within the hospital at this time. Patients may have clear liquids (water, carbonated beverages, clear teas, apple juice) until 3 hours prior to surgery (0900 AM) with a maximum of 20 ounces. - No food from midnight until time of surgery - Infants may have breast milk until 4 hours before surgery, formula 6 hours prior to surgery. - Children will be allowed to drink immediately following surgery. If applicable, please bring a bottle or sippy cup to assist with drinking. Juice, water, soda, and popsicles are readily available. For infants on formula, please bring formula the day of surgery. Pacifiers are allowed. Take the following medications with a SIP of water the morning of surgery: _CEFDINIR, LEVOTHYROXINE_ DO NOT STOP ANY OF YOUR OTHER PRESCRIPTION MEDICATIONS PRIOR TO SURGERY ?EXCEPT THE FOLLOWING Medications to discontinue per physician N/A Date to take last dose Please no make-up, nail trinidadian, hairspray, perfume, deodorant, or body powder the day of surgery. No jewelry (including any body piercings) or valuables the day of surgery, leave them at home. Please take a shower or bath the night before, or the morning of, surgery with an antibacterial soap. Wear comfortable, loose fitting clothing. Children are encouraged to wear pajamas. - Jewelry must be removed prior to entering the operating room. Rings and piercings that are not removed may be cut off. - The hospital will not accept responsibility for valuables. - Please leave all valuables, including medications, at home the day of surgery. If you are going home after surgery, a licensed rolloff truck driver must drive you home. - NO public transportation without another adult if you receive anesthesia. - We recommend that an adult stay with you for 24 hours following discharge. - We also recommend that you do not drive, make important decision, drink alcoholic beverages, or take any drugs that were not prescribed by your health care provider for at least 24 hours after your discharge time. For Pediatric surgeries, we recommend two adults accompany the child home. Follow any additional instructions given to you from your surgeon. If you or anyone in your household have experienced Covid symptoms in the past week, please notify your surgeon or the nurse liaison at the phone number below for possible testing. Telephone instructions given to ____PT and asked if any additional questions and then verbalized understanding. Patient advised to call surgeon office or pre surgery nurse liaison [phone] if any additional questions.
[2023-08-30] VITALS (10 sets, daily range): BP systolic 139–177; BP diastolic 67–92; PULSE 67–85; RESP 9–14; TEMP 36.7–37.2; O2SAT 98–100
--- NOTE | 2023-08-30 06:19 | WPDHPUPDATE1 ---
History and Physical Update Update Date/Time: 08/30/23 06:19 History and Physical has been reviewed, including an updated exam of the patient. There are NO changes in the patient's condition. Risks, benefits, and alternatives have been discussed and questions answered. Patient agrees to proceed with procedure.
--- NOTE | 2023-08-30 09:36 | ECG_ITS ---
Measurements Intervals Nelson Rate: 65 P: 64 OR: 185 QRS: -24 QRSD: 108 T: 11 QT: 395 QTc: 411 Interpretive Statements SINUS RHYTHM POSSIBLE LEFT ATRIAL ENLARGEMENT INCOMPLETE RIGHT BUNDLE BRANCH BLOCK BORDERLINE ECG COMPARED TO ECG 01/23/2022 21:54:49 INCOMPLETE RIGHT BUNDLE-BRANCH BLOCK NOW PRESENT Electronically Signed On 08-30-2023 10:51:56 CAREER REPRESENTATIVE by Justo Porter D.O.
[2023-08-30] MEDS: LACTATED RINGERS 1,000 ML 30 ML IV CONT (10:59)
--- NOTE | 2023-08-30 11:11 | WPDANESEPPF ---
Anes - Initial Pre Proc Eval Procedure: Operation Date: 08/30/23 12:00 Proposed Procedures p Trans Urethral Resection Bladder Tumor with Gemcitabine Instillation - Joey Matias MD Date/Time: 08/30/23 11:11 Surgeon: Joey Matias MD Pre Op Diagnosis: bladder CA Patient Data Age: 73 Gender: M Height: 1.73 m Weight: 79.8 kg Last Vital Signs Temp 98.9 F 08/30/23 10:59 Pulse 67 08/30/23 10:59 Resp 14 08/30/23 10:59 BP 153/72 H 08/30/23 10:59 Pulse Ox 100 08/30/23 10:59 O2 Del Method Room Air 08/30/23 10:59 Allergies Allergy/AdvReac Type Severity Reaction Status Date / Time No Known Allergies Allergy Unknown Verified 08/28/23 09:55 Home Medications Medication Instructions Recorded Confirmed Type rosuvastatin 20 mg tablet 20 mg PO DAILY #90 tabs 04/12/23 08/28/23 Rx levothyroxine 112 mcg tablet 112 mcg PO DAILY #90 tabs 07/05/23 08/28/23 Rx hydrochlorothiazide 25 mg tablet 12.5 mg PO DAILY #90 tabs 07/16/23 08/28/23 Rx lisinopril 20 mg tablet 20 mg PO DAILY #90 tabs 07/16/23 08/28/23 Rx cefdinir 300 mg capsule 300 mg PO Q12HR 7 days #14 caps 08/27/23 08/28/23 Rx Patient hx anesthesia problems: none Family hx anesthesia problems: none Results Review: All pre-operative results and documents have been reviewed as part of the pre-operative evaluation. [facility] Past Medical History Medical History Adenomatous colon polyp Anxiety disorder due to medical condition BMI 26.0-26.9,adult BMI 27.0-27.9,adult BMI 28.0-28.9,adult BMI 29.0-29.9,adult 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 H/O prostate cancer radiation treatment several 3-4 years ago Hematochezia Hx of malignant neoplasm of prostate Hx of tongue cancer radiation Hyperlipidemia Hypertension Hypothyroid Hypothyroidism Osteomyelitis of mandible Prostate cancer Pure hypercholesterolemia Wrist pain Surgical History Surgical History H/O colonoscopy with polypectomy H/O cystoscopy History of mandibular surgery S/P colonoscopy S/P hernia repair Family History Family History Father Diabetes mellitus Hypertension Acute angina Coronary artery disease Heart disease Mother Congestive heart failure Diabetes mellitus Sibling Myocardial infarction Heart disease Sibling No problems noted. Social History Social History Social History: He is with 1 child. 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 Lifelong nonsmoker. 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 Code status full code Smoking status: Never smoker Second hand tobacco smoke exposure: No Alcohol intake: current Drinks per week: 21 Alcohol use details: 3 BEERS/DAY Substance use: never Substance use type: does not use Lack of Transportation: No Lack of Food: Never True Current Housing: I Have Housing Concerned About Future Housing: No Difficulty Paying Gas/Electric Bills: No Difficulty Paying for Meds: No Currently Unemployed: No Education: Master's Degree or Higher Difficulty w/ Childcare or Family Care: No Living arrangements: with family Occupation/Education: retired Additional occupation/education comments: [employer] Gender identity (if verbalized by the patient): Male Spiritual care concerns: No Anes - Eval Final PreProcedure Day of Procedure 08/30/23 11:11 Patient weight: normal Heart: regular rate and rhythm Lungs: clear to auscultation Airway: Mallampati scale class II Neurological: alert and oriented Last oral intake: >/= 8 hours ASA classification: III Emergent: no Anesthetic plan: proceed Anesthesia type and monitoring: general LMA and standard monitoring Result
[2023-08-30] MEDS: ceFAZolin 2 GM/D5W 50 ML 2 GM/50 ML BAG IVPB (11:44)
[2023-08-30] MEDS: LIDOCAINE HCL 2% GEL UROJET 10 ML PKG MUCOUS MEM (11:58)
--- NOTE | 2023-08-30 12:12 | W.PM.PROC2 ---
Procedure Note - Detailed Date of Procedure 08/30/23 Pre-op Diagnosis Bladder CA, bulbous urethral stricture Post-op Diagnosis Same Procedure Performed TURBT small (2cm), urethral dilatation Surgeon Joey Matias MD Anesthesia General Description of Procedure patient is brought to the operative suite was prepped and draped in routine sterile fashion while dorsal lithotomy position after the uneventful induction of a general LMA anesthetic. Cystoscopy was 1st undertaken with a 19 F rigid cystoscope. He has a bulbous urethral stricture which we dilated from 18-30 F with Heath sounds. Twenty-four F resectoscope was placed in the bladder was carefully inspected. He has he has 2 areas of papillary changes in the posterior and left posterior lateral bladder wall. They were resected their entirety with an attempt made to include detrusor muscle for pathological evaluation of invasion. Base and periphery of the sites was cauterized with both the loop and rollerball electrode. The remainder of the bladder is without mucosal abnormalities and no obvious neoplasm. Bladder is emptied and the resectoscope was removed. An 18 F catheter was placed to drainage. The patient tolerated the procedure well Drains Yes Packing No Pathology Yes Complications No immediate complications Condition Stable Disposition PACU
--- NOTE | 2023-08-30 12:18 | W.PM.PROC2 ---
Procedure Note - Detailed Date of Procedure 08/30/23 Pre-op Diagnosis Bladder CA Post-op Diagnosis Same Procedure Performed Gemcitabine installation Surgeon Joey Matias MD Anesthesia General Description of Procedure With the patient in the supine position, a 16F Lindsey catheter is placed using sterile technique. Using a protective facemask, gown and double layer of gloves Gemcitabine 2gm in 100cc saline is administered through the catheter/into the bladder. The catheter is then plugged. Patient was instructed to lie supine x20min, then to roll both the left and right x20 min. each. Total dwell time will be 60 min., after which the bladder will be drained and catheter removed. Drains No Pathology None sent Complications No immediate complications
[2023-08-30] MEDS: SODIUM CHLORIDE 0.9% IV 23.7 ML, GEMCITABINE HCL 1,000 MG BLADDER (12:30)
[2023-08-30] MEDS: fentaNYL CITRATE INJ (*CRX) 100 MCG/2 ML VIAL 25 MCG IV PUSH ×4 (12:31→12:47)
--- NOTE | 2023-08-30 12:54 | SUR.PHASEI ---
1251 PT TURNED FROM BACK TO LEFT SIDE.
--- NOTE | 2023-08-30 13:12 | SUR.PHASEI ---
1310 PT TURNED TO RIGHT SIDE
[2023-08-30] MEDS: SODIUM CHLORIDE 0.9% IV 50 ML BAG 150 ML IRRIGATION (13:40)
== END 2023-08-30 15:19 | disposition home or self-care (01) ==
PROVIDERS: PCP Family Medicine; Visit Provider Urology
PROC: 0TBB8ZZ Excision of Bladder, Via Natural or Artificial Opening Endoscopic (ICD-10-PCS; CPT 52234; principal; 2023-08-30 12:00)
DX: C67.2 Malignant neoplasm of lateral wall of bladder (principal); N35.912 Unspecified bulbous urethral stricture, male; I10 Essential (primary) hypertension; E03.9 Hypothyroidism, unspecified; E78.00 Pure hypercholesterolemia, unspecified; Z85.46 Personal history of malignant neoplasm of prostate; Z85.810 Personal history of malignant neoplasm of tongue
CPT/HCPCS: 52234; 51720; 88305; 93005; J0690; J1100; J2405; J2704; J3010; J7120; J9201

== ENCOUNTER 2023-11-28 07:00 | Outpatient (NON) | payer MEDICARE, SELFPAY | END 2023-11-28 07:01 | disposition home or self-care (01) | LOC: ANHLAB 11-29 10:12 | PROVIDERS: PCP Family Medicine; Visit Provider Internal Medicine Gastroenterology | DX: D12.2 Benign neoplasm of ascending colon (principal); Z86.010 Personal history of colon polyps | CPT/HCPCS: 88305 ==

== ENCOUNTER 2023-11-28 07:07 | Day surgery (SDC) | payer MEDICARE, SELFPAY ==
[2023-11-09 15:29] VITALS: BMI 25.9
[2023-11-14 11:30] VITALS: BMI 25.8
[2023-11-28 08:12] VITALS: BMI 26.8
[2023-11-28 08:13] VITALS: BP 132/69; PULSE 79; RESP 18; TEMP 36.8; O2SAT 100
[2023-11-28] MEDS: LACTATED RINGERS 1,000 ML 150 ML IV CONT (08:24)
--- NOTE | 2023-11-28 08:59 | WPDANESEPPF ---
Anes - Initial Pre Proc Eval Procedure: Operation Date: 11/28/23 09:30 Proposed Procedures p Diagnostic Colonoscopy - Sal Bustos MD Date/Time: 11/28/23 08:59 Surgeon: Sal Bustos MD Pre Op Diagnosis: Melena Patient Data Age: 73 Gender: M Height: 1.73 m Weight: 80 kg Last Vital Signs Temp 36.8 C 11/28/23 08:13 Pulse 79 11/28/23 08:13 Resp 18 11/28/23 08:13 BP 132/69 11/28/23 08:13 Pulse Ox 100 11/28/23 08:13 O2 Del Method Room Air 11/28/23 08:13 Allergies Allergy/AdvReac Type Severity Reaction Status Date / Time No Known Allergies Allergy Unknown Verified 11/28/23 08:06 Home Medications Medication Instructions Recorded Confirmed Type rosuvastatin 20 mg tablet 20 mg PO DAILY #90 tabs 04/12/23 11/28/23 Rx levothyroxine 112 mcg tablet 112 mcg PO DAILY #90 tabs 07/05/23 11/28/23 Rx hydrochlorothiazide 25 mg tablet 12.5 mg PO DAILY #90 tabs 07/16/23 11/28/23 Rx lisinopril 20 mg tablet 20 mg PO DAILY #90 tabs 10/06/23 11/28/23 Rx omeprazole 20 mg capsule,delayed See Rx Instructions .Route 10/24/23 11/28/23 Rx release .COMPLEX #90 caps tamsulosin 0.4 mg capsule 0.4 mg PO DAILY 10/24/23 11/28/23 History Patient hx anesthesia problems: none Family hx anesthesia problems: none Results Review: All pre-operative results and documents have been reviewed as part of the pre-operative evaluation. 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 GERD (gastroesophageal reflux disease) H/O prostate cancer radiation treatment several 3-4 years ago Hematochezia Hx of malignant neoplasm of prostate Hx of tongue cancer radiation Hyperlipidemia Hypertension Hyponatremia Hypothyroid Hypothyroidism Osteomyelitis of mandible Prostate cancer Pure hypercholesterolemia Wrist pain Surgical History Surgical History H/O colonoscopy with polypectomy H/O cystoscopy History of mandibular surgery S/P colonoscopy S/P hernia repair Family History Family History Father Diabetes mellitus Hypertension Acute angina Coronary artery disease Heart disease Mother Congestive heart failure Diabetes mellitus Sibling Myocardial infarction Heart disease Sibling No problems noted. Social History Social History Social History: He is with 1 child. 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 Lifelong nonsmoker. His is the durable power car customizer for healthcare. Code status full code Smoking status: Never smoker Second hand tobacco smoke exposure: No Alcohol intake: current Drinks per week: 21 Alcohol use details: 3 BEERS/DAY Substance use: never Substance use type: does not use Lack of Transportation: No Lack of Food: Never True Current Housing: I Have Housing Concerned About Future Housing: No Difficulty Paying Gas/Electric Bills: No Difficulty Paying for Meds: No Currently Unemployed: No Education: Master's Degree or Higher Difficulty w/ Childcare or Family Care: No Living arrangements: with family Occupation/Education: retired Additional occupation/education comments: [employer] Gender identity (if verbalized by the patient): Male Spiritual care concerns: No Anes - Eval Final PreProcedure Day of Procedure 11/28/23 08:59 Patient weight: normal Heart: regular rate and rhythm Lungs: decreased breath sounds Airway: Mallampati scale Neurological: alert and oriented Last oral
--- NOTE | 2023-11-28 09:17 | PM.HPGS ---
History of Present Illness History of Present Illness Consent: Risks, benefits, and alternatives have been discussed and questions answered. Patient agrees to proceed with procedure. Chief complaint: Occult blood in stool Narrative: Angel Vargas is a 73 year old male presents for colonoscopy. Patient found to have occult blood in stool. He has mild chronic anemia. Patient denies any obvious blood in his stools. He has no bruising. Patient does have a history of colonoscopy 1 year ago which time he was found to have benign colon polyps. Patient also has a history of bladder cancer. Was found to have hematuria fall of 2022. Also has a history of heartburn. Patient has indigestion and substernal discomfort. He was empirically started on omeprazole 20mg p.o. daily and this has subsided. Underwent a stool Hemoccult test because of mild chronic anemia this was found to be positive patient referred for follow-up colonoscopy. Review of Systems Review of Systems: Review of Systems noncontributory. PMFSH Past Medical History Medical History Adenomatous colon polyp Anemia Anemia in chronic kidney disease Anxiety disorder due to medical condition BMI 25.0-25.9,adult BMI 26.0-26.9,adult BMI 27.0-27.9,adult BMI 28.0-28.9,adult BMI 29.0-29.9,adult 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 GERD (gastroesophageal reflux disease) H/O prostate cancer radiation treatment several 3-4 years ago Hematochezia Hx of malignant neoplasm of prostate Hx of tongue cancer radiation Hyperlipidemia Hypertension Hyponatremia Hypothyroid Hypothyroidism Osteomyelitis of mandible Prostate cancer Pure hypercholesterolemia Wrist pain Surgical History Surgical History H/O colonoscopy with polypectomy H/O cystoscopy History of mandibular surgery S/P colonoscopy S/P hernia repair Family History Family History Father Diabetes mellitus Hypertension Acute angina Coronary artery disease Heart disease Mother Congestive heart failure Diabetes mellitus Sibling Myocardial infarction Heart disease Sibling No problems noted. Social History Social History Social History: He is with 1 child. 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 Lifelong nonsmoker. His is the durable power fatback trimmer for healthcare. Code status full code Smoking status: Never smoker Second hand tobacco smoke exposure: No Alcohol intake: current Drinks per week: 21 Alcohol use details: 3 BEERS/DAY Substance use: never Substance use type: does not use Lack of Transportation: No Lack of Food: Never True Current Housing: I Have Housing Concerned About Future Housing: No Difficulty Paying Gas/Electric Bills: No Difficulty Paying for Meds: No Currently Unemployed: No Education: Master's Degree or Higher Difficulty w/ Childcare or Family Care: No Living arrangements: with family Occupation/Education: retired Additional occupation/education comments: [employer] Gender identity (if verbalized by the patient): Male Spiritual care concerns: No Meds Home Medications and Allergies Home Medications Medication Instructions Recorded Confirmed Type rosuvastatin 20 mg tablet 20 mg PO DAILY #90 tabs 04/12/23 11/28/23 Rx levothyroxine 112 mcg tablet 112 mcg PO DAILY #90 tabs 07/05/23 11/28/23 Rx hydrochlorothiazide 25 mg tablet 12.5 mg PO DAILY #90 tabs 07/16/23 11/28/23 Rx lisinopril 20 mg tablet 20 mg PO DAILY #90 tabs 10/06/23 11/28/23 Rx omeprazole 20 mg capsule,delayed See Rx Instructions .Route 10/24/23 11/28/23 Rx release .COMPLEX #90 caps tamsulosin 0.4 mg capsule 0.4 mg PO DAILY 10/24/23 11/28/23 History
[2023-11-28 09:47] VITALS: BP 108/68; PULSE 68; RESP 18; O2SAT 100
[2023-11-28 09:57] VITALS: BP 106/71; PULSE 70; RESP 18; O2SAT 100
[2023-11-28 10:06] VITALS: BP 120/69; PULSE 73; RESP 18; O2SAT 100
--- NOTE | 2023-11-28 10:47 | WPDANESPN ---
Anes - Prog Note Post-Op Date/Time: 11/28/23 10:47 Cardiovascular status: normal Respiratory status: normal Airway patency: baseline Mental status: baseline Post-Op hydration status: normal Vital Signs: Last Vital Signs Temp 36.8 C 11/28/23 08:13 Pulse 73 11/28/23 10:06 Resp 18 11/28/23 10:06 BP 120/69 11/28/23 10:06 Pulse Ox 100 11/28/23 10:06 O2 Del Method Room Air 11/28/23 10:06 Pain Score (VAS): 0 Patient Feedback: Patient satisfied with anesthetic care.
== END 2023-11-28 10:30 | disposition home or self-care (01) ==
PROVIDERS: PCP Family Medicine; Visit Provider Internal Medicine Gastroenterology
PROC: 0DJD8ZZ Inspection of Lower Intestinal Tract, Via Natural or Artificial Opening Endoscopic (ICD-10-PCS; CPT 45378; principal; 2023-11-28 09:30)
DX: Z86.010 Personal history of colon polyps (principal); D12.2 Benign neoplasm of ascending colon; K57.30 Diverticulosis of large intestine without perforation or abscess without bleeding; K64.8 Other hemorrhoids
CPT/HCPCS: 45385

== ENCOUNTER 2023-12-08 00:42 | Inpatient (IN) | payer MEDICARE, SELFPAY ==
[2023-12-08] VITALS (8 sets, daily range): BP systolic 123–155; BP diastolic 64–86; PULSE 70–84; RESP 12–20; TEMP 35.9–36.7; O2SAT 97–100; BMI 27.3
--- NOTE | ~2023-12-08 | US_ITS ---
EXAMINATION: US pelvic limited INDICATION: Gross hematuria, concern for bladder hematoma TECHNIQUE: Limited ultrasound of the urinary bladder is performed. COMPARISON: 05/21/2023 FINDINGS: There is a Lindsey catheter in the urinary bladder. There is echogenic material in the urinar y bladder. No bladder wall thickening is identified. IMPRESSION: 1. Echogenic material in the urinary bladder, likely hematoma. Reviewed, dictated and finalized at location B. EL MANAGER
--- NOTE | 2023-12-08 03:51 | PC.NURSE ---
edp dr. lorenzo verbal order to place urinary novoa catheter. this rn attempted to place urinary catheter. pt refused placement of catheter and stated I do not want to go through this again, I need a 3way catheter, I do not want to be freaked out by this . This rn educated pt on process of placement of catheters. Pt stated he would only talk to EDP Dr. Lorenzo to confirm his care. This RN made edp dr. lorenzo aware and rn oncology [facility].
[2023-12-08 04:45] LABS: Appearance Urine Turbid (Clear); Bacteria Urine None Seen /hpf; Bilirubin Urine 1+ (Negative); Blood Urine 2+ (Negative); Color Urine Red (Yellow); Glucose Urine UA Negative (Negative); Ketones Urine Negative (Negative); Leukocyte Esterase Ur 2+ LEU/UL (Negative); Need Manual Microscopic Reviewed; Nitrate Urine Positive (Negative); Non Pathogenic Casts 0-2; Protein Urine 2+ mg/dL (Negative); RBC Urine >100 /hpf (0-2); Specific Grav Ur 1.016 (1.001-1.035); Squamous Epithelial Cell Urine Few /hpf (Few); Urobilinogen Urine 0.2 mg/dL (<2.0); pH Urine 5.5 (5.0-9.0)
[2023-12-08 05:24] LABS: Add Urine Microscopic? YES
--- NOTE | 2023-12-08 05:48 | ED.GENADULT ---
HPI - General Adult General Chief complaint: Urogenital-Male Stated complaint: Blood in urine, blood clot in bladder, can't pee Time Seen by Provider: 12/08/23 03:43 History of Present Illness HPI narrative: This is a 73-year-old male history of prostate cancer presenting for urinary retention. Patient is frequently had hematuria since he began his prostate cancer treatments. He stopping all the past urine earlier today and quickly developed pain pressure in his abdomen. No other complaints at this time. Patient has required urologic intervention remove clots in the past. Urologist Dr. Matias Related Data Home Medications Medication Instructions Recorded Confirmed tamsulosin 0.4 mg capsule 0.4 mg PO DAILY 10/24/23 11/29/23 Allergies Allergy/AdvReac Type Severity Reaction Status Date / Time No Known Allergies Allergy Unknown Verified 11/29/23 10:06 [facility] Past Medical History Medical History Adenomatous colon polyp Anemia Anemia in chronic kidney disease Anxiety disorder due to medical condition BMI 25.0-25.9,adult BMI 26.0-26.9,adult BMI 27.0-27.9,adult BMI 28.0-28.9,adult BMI 29.0-29.9,adult 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 Dizziness GERD (gastroesophageal reflux disease) H/O prostate cancer radiation treatment several 3-4 years ago Hematochezia Hx of malignant neoplasm of prostate Hx of tongue cancer radiation Hyperlipidemia Hypertension Hyponatremia Hypothyroid Hypothyroidism Osteomyelitis of mandible Prostate cancer Pure hypercholesterolemia Wrist pain Surgical History Surgical History H/O colonoscopy with polypectomy H/O cystoscopy History of mandibular surgery S/P colonoscopy S/P hernia repair Family History Family History Father Diabetes mellitus Hypertension Acute angina Coronary artery disease Heart disease Mother Congestive heart failure Diabetes mellitus Sibling Myocardial infarction Heart disease Sibling No problems noted. Social History Social History Social History: He is with 1 child. 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 Lifelong nonsmoker. His is the durable power family law attorney for healthcare. Code status full code Smoking status: Never smoker Second hand tobacco smoke exposure: No Alcohol intake: current Drinks per week: 21 Alcohol use details: 3 BEERS/DAY Substance use: never Substance use type: does not use Lack of Transportation: No Lack of Food: Never True Current Housing: I Have Housing Concerned About Future Housing: No Difficulty Paying Gas/Electric Bills: No Difficulty Paying for Meds: No Currently Unemployed: No Education: Master's Degree or Higher Difficulty w/ Childcare or Family Care: No Living arrangements: with family Occupation/Education: retired Additional occupation/education comments: [employer] Gender identity (if verbalized by the patient): Male Spiritual care concerns: No Exam Narrative: APPEARANCE: No apparent distress. Head: atraumatic. EYES: EOMI, NOSE: Atraumatic NECK: Trachea midline RESPIRATORY: No increased rate of breathing CARDIOVASCULAR: RRR, ABDOMINAL: Exam after Lindsey was placed showed a nontender abdomen. Point of care ultrasound showed a depressed bladder with the Lindsey balloon in place. No large clots visible MUSCULOSKELETAl: No obvious deformities NEURO: Alert. Moving 4/4 extremities SKIN:: Warm, dry. Normal color PSYCHIATRIC: Normal affect Course Vital Signs Vital signs: Vital Signs Temperature 97.8 F 12/08/23 00:45 Pulse Rate 83 12/08/23 00:45 Respiratory Rate 16 12/08/23 00:45 Blood Pressure 154/64 H 12/08/23 00:45 Pulse Oxime
[2023-12-08 07:54] LABS: Basophils Percent Auto 0.7 % (0.2-1.2); Eosinophils Percent Auto 0.7 % (0-4.4); Hematocrit 30.3 % (42.0-52.0); Hemoglobin 10.2 g/dL (14.0-18.0); Immature Granulocyte Absolute 0.01 K/mm3 (0.00-0.031); Immature Granulocyte Percent A 0.2 % (0-0.5); Lymphocytes Absolute Auto 0.65 K/mm3 (0.9-3.2); Lymphocytes Percent Auto 12.1 % (18.3-44.2); Mean Corpuscular HGB Conc 33.7 g/dl (32-36); Mean Corpuscular Hemoglobin 28.3 pg (26-34); Mean Corpuscular Volume 83.9 fl (80-100); Mean Platelet Volume 8.7 fl (7.4-10.4); Monocytes Absolute Auto 0.6 K/mm3 (0.1-0.6); Monocytes Percent Auto 10.9 % (2.6-8.5); Neutrophils Absolute Auto 4.1 K/mm3 (1.3-6.7); Neutrophils Percent Auto 75.4 % (45.5-73.1); Platelet Count Result 287 k/mm3 (150-375); Red Blood Count 3.61 M/mm3 (4.6-6.20); Red Cell Distribution Width 16.3 % (11.5-14.5); White Blood Count 5.4 K/mm3 (4.5-10.0)
[2023-12-08 08:04] LABS: Alanine Aminotransferase 22 U/L (6-50); Albumin Level 4.3 g/dL (3.5-5.1); Alkaline Phosphatase 61 U/L (38-126); Anion Gap 7 mmol/L (8-16); Aspartate Amino Transferase 32 U/L (17-59); Bilirubin,Total 0.6 mg/dL (0.2-1.3); Blood Urea Nitrogen 18 mg/dL (9-20); Calcium 9.5 mg/dL (8.4-10.2); Carbon Dioxide 25 mmol/L (22-30); Chloride 98 mmol/L (98-107); Estimated CRCL calculation 69 ml/min; Estimated Glomerular Filt Rate > 60; Glucose 106 mg/dL (65-110); Magnesium 2.2 mg/dL (1.6-2.3); Phosphorus 3.4 mg/dL (2.5-4.5); Potassium 4.3 mmol/L (3.4-5.0); Sodium 130 mmol/L (137-145)
--- NOTE | 2023-12-08 08:45 | ADMGEN ---
This patient, Angel Vargas, was admitted to 2 Medical Room 256-. Patient/family oriented to hospital policies and general routines including ID bracelet, bed and alarms, visiting hours, pain management, procedures, bathroom and other care routines, personal items, smoking policy, room service/diet, and visiting hours. Information on how to activate the Rapid Response Team has been discussed. Patient/Family are encouraged to report perceived risks to care and to ask questions if they do not understand what they are told or what they should do.
--- NOTE | 2023-12-08 10:30 | PM.IMHP ---
H&P: HPI History of Present Illness Date/Time: 12/08/23 10:30 Chief Complaint: urinary retention, hematuria Narrative: This is a 73-year-old male patient with a past medical history of prostate cancer being treated with radiation, bladder cancer, remote history of tongue cancer 20 years ago, hypertension, hyperlipidemia and hypothyroidism who is admitted to the hospital for urinary retention with hematuria. Patient reports that this is his 5th hospitalization for the same symptoms, seems to happen every couple months. Patient is complaining primarily of bladder spasms at this time. This morning patient had CBI catheter placed and has reddish urine output on CBI. Patient reports that severe bladder spasms are causing him anxiety. Otherwise, patient has no complaints at this time. He states that he was actually doing quite well until he had trouble urinating this morning. Review of Systems Review of Systems: All systems reviewed & are unremarkable except as noted in HPI and below PMFSH Past Medical History Medical History Adenomatous colon polyp Anemia Anemia in chronic kidney disease Anxiety disorder due to medical condition BMI 25.0-25.9,adult BMI 26.0-26.9,adult BMI 27.0-27.9,adult BMI 28.0-28.9,adult BMI 29.0-29.9,adult 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 Dizziness GERD (gastroesophageal reflux disease) H/O prostate cancer radiation treatment several 3-4 years ago Hematochezia Hx of malignant neoplasm of prostate Hx of tongue cancer radiation Hyperlipidemia Hypertension Hyponatremia Hypothyroid Hypothyroidism Osteomyelitis of mandible Prostate cancer Pure hypercholesterolemia Wrist pain Surgical History Surgical History H/O colonoscopy with polypectomy H/O cystoscopy History of mandibular surgery S/P colonoscopy S/P hernia repair Family History Family History Father Diabetes mellitus Hypertension Acute angina Coronary artery disease Heart disease Mother Congestive heart failure Diabetes mellitus Sibling Myocardial infarction Heart disease Sibling No problems noted. Social History Social History Social History: He is with 1 child. 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 Lifelong nonsmoker. His is the durable power associate attorney for healthcare. Code status full code Smoking status: Never smoker Second hand tobacco smoke exposure: No Alcohol intake: current Drinks per week: 21 Alcohol use details: 3 BEERS/DAY Substance use: never Substance use type: does not use Lack of Transportation: No Lack of Food: Never True Current Housing: I Have Housing Concerned About Future Housing: No Difficulty Paying Gas/Electric Bills: No Difficulty Paying for Meds: No Currently Unemployed: No Education: Master's Degree or Higher Difficulty w/ Childcare or Family Care: No Living arrangements: with family Occupation/Education: retired Additional occupation/education comments: [employer] Gender identity (if verbalized by the patient): Male Spiritual care concerns: No Meds Home Medications and Allergies Home Medications Medication Instructions Recorded Confirmed Type rosuvastatin 20 mg tablet 20 mg PO DAILY #90 tabs 04/12/23 12/08/23 Rx levothyroxine 112 mcg tablet 112 mcg PO DAILY #90 tabs 07/05/23 12/08/23 Rx hydrochlorothiazide 25 mg tablet 12.5 mg PO DAILY #90 tabs 07/16/23 12/08/23 Rx lisinopril 20 mg tablet 20 mg PO DAILY #90 tabs 10/06/23 12/08/23 Rx omeprazole 20 mg capsule,delayed See Rx Instructions .Route 10/24/23 12/08/23 Rx release .COMPLEX #90 caps tamsulosin 0.4 mg capsule 0.4 mg PO DAILY 10/24/23 12/08/23 History meclizine 2
[2023-12-08] MEDS: oxyBUTYnin CHLORIDE 5 MG TABLET PO (12:32)
[2023-12-08] MEDS: TAMSULOSIN HCL 0.4 MG CAPSULE PO (14:01)
--- NOTE | 2023-12-08 16:46 | WPDURCON ---
Assessment and Plan Assessment and plan (1) Hematuria: Code(s): R31.9 - Hematuria, unspecified Status: Acute Assessment and Plan: - Continue CBI at this time. Irrigate PRN as needed via catheter with cath tip syringe. Plan to slow down CBI tomorrow, and ideally stop completely thereafter. - Oxybutynin for bladder spasms, ok to do 5-7.5mg TID. DIscussed side effects with patient, and he'd like to try an increased dose. - Belladonna/opium suppository for spasms and constipation as well. - Balance of care per primary team. (2) Acute urinary retention: Code(s): R33.8 - Other retention of urine Status: Acute Assessment and Plan: - Continue CBI at this time. Irrigate PRN as needed via catheter with cath tip syringe. Plan to slow down CBI tomorrow, and ideally stop completely thereafter. - Oxybutynin for bladder spasms, ok to do 5-7.5mg TID. DIscussed side effects with patient, and he'd like to try an increased dose. - Belladonna/opium suppository for spasms and constipation as well. - Balance of care per primary team. 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 Patient presented to ED after experiencing the urinary retention and passing some blood clots. Had a hematuria catheter that was placed and started on CBI. His biggest current complaint is current bladder spasms. He has no leukocytosis, Cr 0.8, UCx pending. CBI is currently running and is completely clear. [facility] Past Medical History Medical History Adenomatous colon polyp Anemia Anemia in chronic kidney disease Anxiety disorder due to medical condition BMI 25.0-25.9,adult BMI 26.0-26.9,adult BMI 27.0-27.9,adult BMI 28.0-28.9,adult BMI 29.0-29.9,adult 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 Dizziness GERD (gastroesophageal reflux disease) H/O prostate cancer radiation treatment several 3-4 years ago Hematochezia Hx of malignant neoplasm of prostate Hx of tongue cancer radiation Hyperlipidemia Hypertension Hyponatremia Hypothyroid Hypothyroidism Osteomyelitis of mandible Prostate cancer Pure hypercholesterolemia Wrist pain Surgical History Surgical History H/O colonoscopy with polypectomy H/O cystoscopy History of mandibular surgery S/P colonoscopy S/P hernia repair Family History Family History Father Diabetes mellitus Hypertension Acute angina Coronary artery disease Heart disease Mother Congestive heart failure Diabetes mellitus Sibling Myocardial infarction Heart disease Sibling No problems noted. Social History Social History Social History: He is with 1 child. 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 Lifelong nonsmoker. His is the durable power attorney law clerk for healthcare. Code status full code Smoking status: Never smoker Second hand tobacco smoke exposure: No Alcohol intake: current Drinks per week: 21 Alcohol use details: 3 BEERS/DAY Substance use: never Substance use type: does not use Lack of Transportation: No Lack of Food: Never True Current Housing: I Have Housing Concerned About Future Housing: No Difficulty Paying Gas/Electric Bills: No Difficulty Paying for Meds: No Currently Unemployed: No Education: Master's Degree or Higher Difficulty w/ Childcare or Family Care: No Living arrangements: with family Occupation/Education: retire
[2023-12-08] MEDS: oxyBUTYnin CHLORIDE 2.5 MG TAB 7.5 MG PO (17:39)
[2023-12-08] MEDS: BISACODYL 10 MG SUPPOSITORY RECTAL (17:40)
[2023-12-08] MEDS: PANTOPRAZOLE SOD SESQUIHYDRATE 20 MG TAB PO (20:12)
[2023-12-08] MEDS: LORazepam (*CRX) 1 MG TABLET PO (20:12)
[2023-12-08] MEDS: HYOSCYAMINE SULFATE 0.125 MG TABLET PO (23:07)
[2023-12-09 03:49] VITALS: BP 113/64; PULSE 74; RESP 18; TEMP 37.1; O2SAT 97
[2023-12-09 05:33] LABS: Basophils Percent Auto 0.4 % (0.2-1.2); Eosinophils Absolute Auto 0.1 K/mm3 (0-0.3); Eosinophils Percent Auto 1.9 % (0-4.4); Hematocrit 28.1 % (42.0-52.0); Hemoglobin 9.1 g/dL (14.0-18.0); Immature Granulocyte Absolute 0.04 K/mm3 (0.00-0.031); Immature Granulocyte Percent A 0.6 % (0-0.5); Lymphocytes Absolute Auto 0.65 K/mm3 (0.9-3.2); Lymphocytes Percent Auto 9.3 % (18.3-44.2); Mean Corpuscular HGB Conc 32.4 g/dl (32-36); Mean Corpuscular Hemoglobin 27.7 pg (26-34); Mean Corpuscular Volume 85.4 fl (80-100); Mean Platelet Volume 9.1 fl (7.4-10.4); Monocytes Absolute Auto 0.7 K/mm3 (0.1-0.6); Monocytes Percent Auto 9.9 % (2.6-8.5); Neutrophils Absolute Auto 5.5 K/mm3 (1.3-6.7); Neutrophils Percent Auto 77.9 % (45.5-73.1); Platelet Count Result 264 k/mm3 (150-375); Red Blood Count 3.29 M/mm3 (4.6-6.20); Red Cell Distribution Width 16.5 % (11.5-14.5)
[2023-12-09 05:49] LABS: Alanine Aminotransferase 16 U/L (6-50); Albumin Level 3.7 g/dL (3.5-5.1); Alkaline Phosphatase 49 U/L (38-126); Anion Gap 5 mmol/L (8-16); Aspartate Amino Transferase 24 U/L (17-59); Bilirubin,Total 0.9 mg/dL (0.2-1.3); Blood Urea Nitrogen 14 mg/dL (9-20); Calcium 8.9 mg/dL (8.4-10.2); Carbon Dioxide 27 mmol/L (22-30); Chloride 96 mmol/L (98-107); Estimated CRCL calculation 62 ml/min; Estimated Glomerular Filt Rate > 60; Glucose 102 mg/dL (65-110); Magnesium 2.2 mg/dL (1.6-2.3); Potassium 4.1 mmol/L (3.4-5.0); Sodium 128 mmol/L (137-145)
[2023-12-09] MEDS: LEVOTHYROXINE SODIUM 112 MCG TABLET PO (05:54)
--- NOTE | 2023-12-09 07:10 | PM.IMPN ---
Progress Note: A&P Assessment and Plan (1) Acute urinary retention: Code(s): R33.8 - Other retention of urine Status: Acute Assessment and Plan: Recurrent issue, CBI catheter in place and Urology consulted. Bloody drainage from CBI catheter at this time. Oxybutynin ordered for bladder spasms by Urology. (2) Hematuria: Code(s): R31.9 - Hematuria, unspecified Status: Acute Assessment and Plan: Recurrent issue, CBI catheter in place and Urology consulted. Bloody drainage from CBI catheter at this time. Oxybutynin ordered for bladder spasms by Urology. (3) Prostate cancer: Code(s): C61 - Malignant neoplasm of prostate Status: Acute Assessment and Plan: Recurrent issue, CBI catheter in place and Urology consulted. Bloody drainage from CBI catheter at this time. Oxybutynin ordered for bladder spasms by Urology. (4) Hyponatremia: Code(s): E87.1 - Hypo-osmolality and hyponatremia Status: Acute Assessment and Plan: History of mild hyponatremia, on hydrochlorothiazide at home. Will hold hydrochlorothiazide. Sodium 130 today 12/09: Sodium to 128 today. Ordered sodium tabs. Unable to collect usual urine labs for hyponatremia due to CBI 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: Code(s): F06.4 - Anxiety disorder due to known physiological condition Status: Acute Assessment and Plan: PRN lorazepam for anxiety related to bladder spasm Time Spent With Patient Time with patient: 25 - 35 minutes Subjective Date/time seen: 12/09/23 07:10 Interval history: Patient reports that bladder spasms have been a little bit better this morning that they were really bad last night that he had a suppository which seemed to help a little bit. Oxybutynin was increased in strength by Urology. Plan is to slow down rate of CBI today. Review of Systems Review of Systems: All systems reviewed & are unremarkable except as noted in HPI and below Exam Narrative: GENERAL: Chronically ill appearing, well-nourished, more comfortable appearing today HEAD: Normocephalic, atraumatic. ENT:? Mucous membranes moist. CHEST: Clear to auscultation.? No respiratory distress. HEART: Regular rate and rhythm. ? Normal peripheral pulses. ABDOMEN: Soft, nontender, nondistended. Suprapubic tenderness. EXTREMITIES: Normal range of motion. No peripheral edema. SKIN: Warm dry normal color NEURO: Alert and oriented x3. PSYCH: Normal mood and affect Objective Data Vital Signs Vital Signs: Vital Signs - 24 hr 12/08/23 07:24 12/08/23 09:19 12/08/23 15:32 Temperature 36.7 C Pulse Rate 73 76 Respiratory Rate 18 12 Blood Pressure 148/86 H 132/66 Pulse Oximetry 97 97 98 Oxygen Delivery Room Air 12/08/23 18:54 12/08/23 19:42 12/08/23 20:00 Temperature 36.6 C Pulse Rate 84 72 Respiratory Rate 20 18 Blood Pressure 123/71 Pulse Oximetry 98 98 Oxygen Delivery Room Air Room Air 12/09/23 03:49 Temperature 37.1 C Pulse Rate 74 Respiratory Rate 18 Blood Pressure 113/64 Pulse Oximetry 97 Oxygen Delivery Intake/Output Intake/Output: Intake & Output 12/06/23 12/07/23 12/08/23 12/09/23 23:59 23:59 23:59 23:59 Intake Total 1330 200 Output Total 56868 Balance -8670 200 Meds/Results Medications: Active Medications Generic Name Dose Route Start Last Admin Trade Name Freq PRN Reason Stop Dose Admin Levothyroxine Sodium 112 mcg 12/09/23 06:30 12/09/23 05:54 Levothyroxine Sodium 112 Mcg Tablet PO 112 mcg DAILY@0630 [facility] Administration Lisinopril 20 mg 12/09/23 09:00 Lisinopril 20 Mg Tablet PO DAILY [facility] [place]az
[2023-12-09 09:10] VITALS: BP 137/58; PULSE 82; RESP 16; O2SAT 100
[2023-12-09] MEDS: oxyBUTYnin CHLORIDE 2.5 MG TAB PO ×3 (09:12→16:23)
[2023-12-09] MEDS: TAMSULOSIN HCL 0.4 MG CAPSULE PO (09:12)
[2023-12-09] MEDS: ROSUVASTATIN 10 MG TABLET 20 MG PO (09:12)
[2023-12-09] MEDS: oxyBUTYnin CHLORIDE 5 MG TABLET PO ×3 (09:12→16:23)
[2023-12-09] MEDS: PANTOPRAZOLE SOD SESQUIHYDRATE 20 MG TAB PO ×2 (09:12→20:17)
[2023-12-09] MEDS: lisinopriL 20 MG TABLET PO (09:12)
[2023-12-09] MEDS: SODIUM CHLORIDE 1 GM TABLET PO ×2 (09:13→16:23)
--- NOTE | 2023-12-09 09:51 | WPDUROPN2 ---
Progress Note: A&P Assessment and Plan (1) Hematuria: Code(s): R31.9 - Hematuria, unspecified Status: Acute Assessment and Plan: - Continue CBI at this time. Irrigate PRN as needed via catheter with cath tip syringe. Slowed down rate today, order placed to clamp tomorrow AM - Oxybutynin for bladder spasms, ok to do 5-7.5mg TID. Discussed side effects with patient, and he'd like to try an increased dose. - Belladonna/opium suppository for spasms and constipation as well. Another suppository today. - Balance of care per primary team. Subjective Subjective Date/Time Seen: 12/09/23 09:51 Interval history: NAEO. Bladder spasms improving mildly with oxybutynin. Still constipated, small B M yesterday after suppository. CBI running and urine yellow and clear. Exam : Other: Catheter in place with clear yellow urine, CBI running. Objective Data Vital Signs Vital Signs: Vital Signs - 24 hr 12/08/23 15:32 12/08/23 18:54 12/08/23 19:42 Temperature 36.7 C 36.6 C Pulse Rate 76 84 Respiratory Rate 12 20 Blood Pressure 132/66 123/71 Pulse Oximetry 98 98 Oxygen Delivery Room Air 12/08/23 20:00 12/09/23 03:49 12/09/23 09:10 Temperature 37.1 C Pulse Rate 72 74 82 Respiratory Rate 18 18 16 Blood Pressure 113/64 137/58 L Pulse Oximetry 98 97 100 Oxygen Delivery Room Air Intake/Output Intake/Output: Intake & Output 12/06/23 12/07/23 12/08/23 12/09/23 23:59 23:59 23:59 23:59 Intake Total 1330 200 Output Total 81980 Balance -8670 200 Meds/Results Medications: Active Medications Generic Name Dose Route Start Last Admin Trade Name Freq PRN Reason Stop Dose Admin Levothyroxine Sodium 112 mcg 12/09/23 06:30 12/09/23 05:54 Levothyroxine Sodium 112 Mcg Tablet PO 112 mcg DAILY@0630 ANNIE Administration Lisinopril 20 mg 12/09/23 09:00 12/09/23 09:12 Lisinopril 20 Mg Tablet PO 20 mg DAILY ANNIE Administration Lorazepam 1 mg 12/08/23 12:51 12/08/23 20:12 Lorazepam (*Crx) 1 Mg Tablet PO 1 mg Q8H PRN Administration Anxiety Meclizine HCl 25 mg 12/08/23 12:50 Meclizine Hcl 25 Mg Tablet PO BID PRN dizziness Oxybutynin Chloride 2.5 mg 12/09/23 09:00 12/09/23 09:12 Oxybutynin Chloride 2.5 Mg Tab PO 2.5 mg TID ANNIE Administration Oxybutynin Chloride 5 mg 12/09/23 09:00 12/09/23 09:12 Oxybutynin Chloride 5 Mg Tablet PO 5 mg TID ANNIE Administration Pantoprazole Sodium 20 mg 12/08/23 21:00 12/09/23 09:12 Pantoprazole Sod Sesquihydrate 20 Mg Tab PO 20 mg Q12HR ANNIE Administration Rosuvastatin Calcium 20 mg 12/09/23 09:00 12/09/23 09:12 Rosuvastatin 10 Mg Tablet PO 20 mg DAILY ANNIE Administration Sodium Chloride 1 gm 12/09/23 09:00 12/09/23 09:13 Sodium Chloride 1 Gm Tablet PO 1 gm BID ANNIE Administration Tamsulosin HCl 0.4 mg 12/08/23 12:50 12/09/23 09:12 Tamsulosin Hcl 0.4 Mg Capsule PO 0.4 mg DAILY ANNIE Administration Labs Labs: Laboratory Results - last 24 hr 12/09/23 05:01 WBC 7.0 RBC 3.29 L Hgb 9.1 L Hct 28.1 L MCV 85.4 MCH 27.7 MCHC 32.4 RDW 16.5 H Plt Count 264 MPV 9.1 Immature Gran % (Auto) 0.6 H Neut % (Auto) 77.9 H Lymph % (Auto) 9.3 L Hubbard % (Auto) 9.9 H Eos % (Auto) 1.9 Baso % (Auto) 0.4 Lymph # (Auto) 0.65 L Hubbard # (Auto) 0.7 H Eos # (Auto) 0.1 Baso # (Auto) 0.0 Abs Immat Gran (auto) 0.04 H Absolute Neuts (auto) 5.5 Absolute Nucleated RBC 0.0 Nucleated RBC % 0.0 Sodium 128 L Potassium 4.1 Chloride 96 L Carbon Dioxide 27 Anion Gap 5 L BUN 14 Creatinine 0.90 Estim Creat Clear Calc 62 Estimated GFR > 60 Glucose 102 Calcium 8.9 Magnesium 2.2 Total Bilirubin 0.9 AST 24 ALT 16 Alkaline Phosphatase 49 Total Protein 6.0 L Albumin 3.7
[2023-12-09 16:16] VITALS: BP 108/59; PULSE 85; RESP 16; TEMP 36.9; O2SAT 97
[2023-12-09] MEDS: IBUPROFEN 600 MG TABLET PO (16:23)
[2023-12-09 19:44] VITALS: BP 109/67; PULSE 68; RESP 18; TEMP 36.6; O2SAT 98
[2023-12-09] MEDS: BISACODYL 10 MG SUPPOSITORY RECTAL (20:26)
[2023-12-09] MEDS: LORazepam (*CRX) 1 MG TABLET PO (20:26)
[2023-12-09] MEDS: HYOSCYAMINE SULFATE 0.125 MG TABLET PO (21:14)
[2023-12-10 05:09] LABS: Basophils Percent Auto 0.7 % (0.2-1.2); Eosinophils Absolute Auto 0.3 K/mm3 (0-0.3); Eosinophils Percent Auto 4.7 % (0-4.4); Hematocrit 27.2 % (42.0-52.0); Immature Granulocyte Absolute 0.02 K/mm3 (0.00-0.031); Immature Granulocyte Percent A 0.3 % (0-0.5); Lymphocytes Absolute Auto 0.66 K/mm3 (0.9-3.2); Lymphocytes Percent Auto 11.4 % (18.3-44.2); Mean Corpuscular HGB Conc 33.1 g/dl (32-36); Mean Corpuscular Volume 84.7 fl (80-100); Mean Platelet Volume 8.9 fl (7.4-10.4); Monocytes Absolute Auto 0.7 K/mm3 (0.1-0.6); Monocytes Percent Auto 11.4 % (2.6-8.5); Neutrophils Absolute Auto 4.1 K/mm3 (1.3-6.7); Neutrophils Percent Auto 71.5 % (45.5-73.1); Platelet Count Result 241 k/mm3 (150-375); Red Blood Count 3.21 M/mm3 (4.6-6.20); Red Cell Distribution Width 16.2 % (11.5-14.5); White Blood Count 5.8 K/mm3 (4.5-10.0)
[2023-12-10 05:20] LABS: Alanine Aminotransferase 15 U/L (6-50); Albumin Level 3.4 g/dL (3.5-5.1); Alkaline Phosphatase 52 U/L (38-126); Anion Gap 0 mmol/L (8-16); Aspartate Amino Transferase 23 U/L (17-59); Bilirubin,Total 0.6 mg/dL (0.2-1.3); Blood Urea Nitrogen 16 mg/dL (9-20); Calcium 8.6 mg/dL (8.4-10.2); Carbon Dioxide 28 mmol/L (22-30); Chloride 95 mmol/L (98-107); Estimated CRCL calculation 62 ml/min; Estimated Glomerular Filt Rate > 60; Glucose 92 mg/dL (65-110); Magnesium 2.2 mg/dL (1.6-2.3); Potassium 3.8 mmol/L (3.4-5.0); Sodium 123 mmol/L (137-145)
[2023-12-10 05:25] VITALS: BP 123/69; PULSE 64; RESP 17; TEMP 36.8; O2SAT 100
[2023-12-10] MEDS: LEVOTHYROXINE SODIUM 112 MCG TABLET PO (05:59)
[2023-12-10 08:45] VITALS: BP 126/67; PULSE 75; O2SAT 100
[2023-12-10] MEDS: PANTOPRAZOLE SOD SESQUIHYDRATE 20 MG TAB PO ×2 (08:46→21:07)
[2023-12-10] MEDS: oxyBUTYnin CHLORIDE 5 MG TABLET PO ×2 (08:46→13:11)
[2023-12-10] MEDS: TAMSULOSIN HCL 0.4 MG CAPSULE PO (08:46)
[2023-12-10] MEDS: lisinopriL 20 MG TABLET PO (08:46)
[2023-12-10] MEDS: oxyBUTYnin CHLORIDE 2.5 MG TAB PO ×2 (08:46→13:11)
[2023-12-10] MEDS: ROSUVASTATIN 10 MG TABLET 20 MG PO (08:46)
[2023-12-10] MEDS: SODIUM CHLORIDE 1 GM TABLET PO ×2 (08:47→17:45)
--- NOTE | 2023-12-10 09:36 | WPDUROPN2 ---
Progress Note: A&P Assessment and Plan (1) Hematuria: Code(s): R31.9 - Hematuria, unspecified Status: Acute Assessment and Plan: - CBI stopped this morning and urine became grossly bloody with small clots. Restarted CBI and urine promptly turned light pink. Continue moderate CBI and titrate to keep urine clear. - Continue oxybutynin 5-7.5 mg TID prn for bladder spasms - urine culture is negative Subjective Subjective Date/Time Seen: 12/10/23 09:36 Interval history: Angel is feeling well today. He offers no complaints. CBI turned off this morning. Urine is grossly bloody with small clots in tubing. He reports improvement in bladder spasms. He had several bowel movements last night and a small bowel movement this morning. Hgb is stable at 9.0. Creatinine is 0.9. Review of Systems Review of Systems: All systems reviewed & are unremarkable except as noted in HPI and below Exam Narrative: General: Awake, alert, comfortable, no acute distress HEENT: Normocephalic, atraumatic, sclerae anicteric Respiratory: Normal respiratory effort, no accessory muscle use Abdomen: Nondistended, soft, nontender : novoa catheter draining grossly bloody urine with small clots in tubing Skin: Normal coloration, warm and dry Neurologic: No focal neuro deficits noted Psychiatric: Appropriate mood and affect, judgment and insight intact Objective Data Vital Signs Vital Signs: Vital Signs - 24 hr 12/09/23 16:16 12/09/23 19:44 12/10/23 05:25 Temperature 98.4 F 97.9 F 98.3 F Pulse Rate 85 68 64 Respiratory Rate 16 18 17 Blood Pressure 108/59 L 109/67 123/69 Pulse Oximetry 97 98 100 12/10/23 08:45 Temperature Pulse Rate 75 Respiratory Rate Blood Pressure 126/67 Pulse Oximetry 100 Intake/Output Intake/Output: Intake & Output 12/07/23 12/08/23 12/09/23 12/10/23 23:59 23:59 23:59 23:59 Intake Total 1330 2000 550 Output Total 70245 2300 1100 Balance -8670 -300 -550 Meds/Results Medications: Active Medications Generic Name Dose Route Start Last Admin Trade Name Freq PRN Reason Stop Dose Admin Bisacodyl 10 mg 12/09/23 12:07 12/09/23 20:26 Bisacodyl 10 Mg Suppository RECTAL 10 mg QAM PRN Administration Constipation Ibuprofen 600 mg 12/09/23 12:07 12/09/23 16:23 Ibuprofen 600 Mg Tablet PO 600 mg Q6H PRN Administration Mild Pain (1-3) or Fever Levothyroxine Sodium 112 mcg 12/09/23 06:30 12/10/23 05:59 Levothyroxine Sodium 112 Mcg Tablet PO 112 mcg DAILY@0630 ANNIE Administration Lisinopril 20 mg 12/09/23 09:00 12/10/23 08:46 Lisinopril 20 Mg Tablet PO 20 mg DAILY ANNIE Administration Lorazepam 1 mg 12/08/23 12:51 12/09/23 20:26 Lorazepam (*Crx) 1 Mg Tablet PO 1 mg Q8H PRN Administration Anxiety Meclizine HCl 25 mg 12/08/23 12:50 Meclizine Hcl 25 Mg Tablet PO BID PRN dizziness Oxybutynin Chloride 2.5 mg 12/09/23 09:00 12/10/23 08:46 Oxybutynin Chloride 2.5 Mg Tab PO 2.5 mg TID ANNIE Administration Oxybutynin Chloride 5 mg 12/09/23 09:00 12/10/23 08:46 Oxybutynin Chloride 5 Mg Tablet PO 5 mg TID ANNIE Administration Pantoprazole Sodium 20 mg 12/08/23 21:00 12/10/23 08:46 Pantoprazole Sod Sesquihydrate 20 Mg Tab PO 20 mg Q12HR ANNIE Administration Rosuvastatin Calcium 20 mg 12/09/23 09:00 12/10/23 08:46 Rosuvastatin 10 Mg Tablet PO 20 mg DAILY ANNIE Administration Sodium Chloride 1 gm 12/09/23 09:00 12/10/23 08:47 Sodium Chloride 1 Gm Tablet PO 1 gm BID ANNIE Administration Tamsulosin HCl 0.4 mg 12/08/23 12:50 12/10/23 08:46 Tamsulosin Hcl 0.4 Mg Capsule PO 0.4 mg DAILY ANNIE Administration Labs Labs: Laboratory Results - last 24 hr 12/10/23 04:41 WBC 5.8 RBC 3.21 L Hgb 9.0 L Hct 27.2 L MCV 84.7 MCH 28.0 MCHC 33.1 RDW 16.2 H Plt Count 241 MPV 8.9 Immature Gran % (Auto) 0.3 Neut % (Auto) 71.5 Lymph % (Auto
--- NOTE | 2023-12-10 11:18 | PM.IMPN ---
Progress Note: A&P Assessment and Plan (1) Acute urinary retention: Code(s): R33.8 - Other retention of urine Status: Acute Assessment and Plan: Recurrent issue, CBI catheter in place and Urology consulted. Bloody drainage from CBI catheter at this time. Oxybutynin ordered for bladder spasms by Urology. 12/10: Levsin works well for bladder spasms. CBI had to be restarted due to continued bleeding with clots. (2) Hyponatremia: Code(s): E87.1 - Hypo-osmolality and hyponatremia Status: Acute Assessment and Plan: History of mild hyponatremia, on hydrochlorothiazide at home. Will hold hydrochlorothiazide. Sodium 130 today 12/09: Sodium to 128 today. Ordered sodium tabs. Unable to collect usual urine labs for hyponatremia due to CBI 12/10: Sodium to 123. Patient states he will not be able to fluid restrict. (3) Hematuria: Code(s): R31.9 - Hematuria, unspecified Status: Acute Assessment and Plan: Recurrent issue, CBI catheter in place and Urology consulted. Bloody drainage from CBI catheter at this time. Oxybutynin ordered for bladder spasms by Urology. (4) Prostate cancer: Code(s): C61 - Malignant neoplasm of prostate Status: Acute Assessment and Plan: Recurrent issue, CBI catheter in place and Urology consulted. Bloody drainage from CBI catheter at this time. Oxybutynin ordered for bladder spasms by Urology. 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 He reports that hyoscyamine worked better for his bladder spasms than oxybutynin alone. Patient is also convinced that he needs to go to the operating room for cautery of lesions on his bladder due to persistent hematuria. Message sent to urology provider with these issues. Additionally I informed patient of his sodium level dropping and that we would need to check more frequently. I discussed that if it did not turn around he would need to go on a fluid restriction at which she got very upset stating that that was impossible because he always has dry mouth and he cannot handle a fluid restriction. Review of Systems Review of Systems: All systems reviewed & are unremarkable except as noted in HPI and below Exam Narrative: General: Awake, alert, comfortable, no acute distress HEENT: Normocephalic, atraumatic, sclerae anicteric Respiratory: Normal respiratory effort, no accessory muscle use Abdomen: Nondistended, soft, nontender : novoa catheter draining grossly bloody urine with small clots in tubing Skin: Normal coloration, warm and dry Neurologic: No focal neuro deficits noted Psychiatric: Appropriate mood and affect, judgment and insight intact Objective Data Vital Signs Vital Signs: Vital Signs - 24 hr 12/09/23 16:16 12/09/23 19:44 12/10/23 05:25 Temperature 36.9 C 36.6 C 36.8 C Pulse Rate 85 68 64 Respiratory Rate 16 18 17 Blood Pressure 108/59 L 109/67 123/69 Pulse Oximetry 97 98 100 Oxygen Delivery 12/10/23 08:45 12/10/23 08:30 Temperature Pulse Rate 75 Respiratory Rate Blood Pressure 126/67 Pulse Oximetry 100 Oxygen Delivery Room Air Intake/Output Intake/Output: Intake & Output 12/07/23 12/08/23 12/09/23 12/10/23 23:59 23:59 23:59 23:59 Intake Total 1330 1999 1190
[2023-12-10 14:00] VITALS: BP 110/58; PULSE 72; RESP 16; TEMP 36.9; O2SAT 98
[2023-12-10 14:44] LABS: Sodium 127 mmol/L (137-145)
[2023-12-10] MEDS: HYOSCYAMINE SULFATE 0.125 MG TABLET PO ×2 (15:36→21:07)
[2023-12-10 20:08] VITALS: BP 136/72; PULSE 70; RESP 17; TEMP 36.6; O2SAT 99
[2023-12-10] MEDS: LORazepam (*CRX) 1 MG TABLET PO (21:07)
[2023-12-10 22:18] LABS: Sodium 125 mmol/L (137-145)
[2023-12-11] VITALS (15 sets, daily range): BP systolic 109–159; BP diastolic 62–81; PULSE 67–103; RESP 13–22; TEMP 36.3–37; O2SAT 94–100
[2023-12-11] MEDS: HYOSCYAMINE SULFATE 0.125 MG TABLET PO ×3 (03:37→21:22)
[2023-12-11] MEDS: LEVOTHYROXINE SODIUM 112 MCG TABLET PO (05:50)
[2023-12-11 06:06] LABS: Basophils Percent Auto 0.8 % (0.2-1.2); Eosinophils Absolute Auto 0.2 K/mm3 (0-0.3); Eosinophils Percent Auto 3.7 % (0-4.4); Hematocrit 28.4 % (42.0-52.0); Hemoglobin 9.2 g/dL (14.0-18.0); Immature Granulocyte Absolute 0.01 K/mm3 (0.00-0.031); Immature Granulocyte Percent A 0.2 % (0-0.5); Lymphocytes Absolute Auto 0.54 K/mm3 (0.9-3.2); Lymphocytes Percent Auto 10.5 % (18.3-44.2); Mean Corpuscular HGB Conc 32.4 g/dl (32-36); Mean Corpuscular Volume 86.3 fl (80-100); Mean Platelet Volume 9.2 fl (7.4-10.4); Monocytes Absolute Auto 0.6 K/mm3 (0.1-0.6); Monocytes Percent Auto 11.3 % (2.6-8.5); Neutrophils Absolute Auto 3.8 K/mm3 (1.3-6.7); Neutrophils Percent Auto 73.5 % (45.5-73.1); Platelet Count Result 272 k/mm3 (150-375); Red Blood Count 3.29 M/mm3 (4.6-6.20); Red Cell Distribution Width 16.4 % (11.5-14.5); White Blood Count 5.1 K/mm3 (4.5-10.0)
[2023-12-11 06:07] LABS: Alanine Aminotransferase 14 U/L (6-50); Albumin Level 3.4 g/dL (3.5-5.1); Alkaline Phosphatase 49 U/L (38-126); Anion Gap 4 mmol/L (8-16); Aspartate Amino Transferase 27 U/L (17-59); Bilirubin,Total 0.7 mg/dL (0.2-1.3); Blood Urea Nitrogen 13 mg/dL (9-20); Calcium 8.8 mg/dL (8.4-10.2); Carbon Dioxide 26 mmol/L (22-30); Chloride 97 mmol/L (98-107); Estimated CRCL calculation 62 ml/min; Estimated Glomerular Filt Rate > 60; Glucose 92 mg/dL (65-110); Magnesium 2.2 mg/dL (1.6-2.3); Potassium 4.2 mmol/L (3.4-5.0); Sodium 127 mmol/L (137-145)
[2023-12-11] MEDS: LORazepam (*CRX) 1 MG TABLET PO ×2 (06:18→16:45)
--- NOTE | 2023-12-11 08:56 | WPDUROPN2 ---
Progress Note: A&P Assessment and Plan (1) Hematuria: Code(s): R31.9 - Hematuria, unspecified Status: Acute Assessment and Plan: - Recurrence of hematuria after stopping CBI on 12/10/2023. Urine remains bloody on slow CBI. Continue CBI and titrate to keep urine clear - Bladder ultrasound reveals likely hematoma in the urinary bladder - Will plan for cystoscopy with clot evacuation and 1% formalin instillation this afternoon with Dr. Matias. Continue NPO diet (2) Bladder cancer: Code(s): C67.9 - Malignant neoplasm of bladder, unspecified Status: Acute Assessment and Plan: - S/p TURBT 08/2023. - Ta low grade, intermediate risk. Opted against BCG (3) H/O prostate cancer: Code(s): Z85.46 - Personal history of malignant neoplasm of prostate Status: Acute Assessment and Plan: - S/p IMRT 2017 Subjective Subjective Date/Time Seen: 12/11/23 08:56 Interval history: Angel is feeling fair today. He is frustrated by ongoing hematuria. Three-way catheter is draining light red urine on slow CBI. He denies suprapubic pain or pressure. Denies nausea, vomiting, fever, or chills. WBC 5.1. Hemoglobin stable at 9.2. Creatinine 0.9. Review of Systems Review of Systems: All systems reviewed & are unremarkable except as noted in HPI and below Exam Narrative: General: Awake, alert, comfortable, no acute distress HEENT: Normocephalic, atraumatic, sclerae anicteric Respiratory: Normal respiratory effort, no accessory muscle use Abdomen: Nondistended, soft, nontender : novoa catheter draining pinkish red urine without clots Skin: Normal coloration, warm and dry Neurologic: No focal neuro deficits noted Psychiatric: Appropriate mood and affect, judgment and insight intact Objective Data Vital Signs Vital Signs: Vital Signs - 24 hr 12/10/23 14:00 12/10/23 20:08 12/11/23 04:53 Temperature 98.4 F 97.9 F 97.6 F Pulse Rate 72 70 67 Respiratory Rate 16 17 17 Blood Pressure 110/58 L 136/72 119/62 Pulse Oximetry 98 99 99 Oxygen Delivery 12/11/23 07:59 12/11/23 07:50 Temperature 97.9 F Pulse Rate 72 Respiratory Rate 15 16 Blood Pressure 109/68 Pulse Oximetry 99 99 Oxygen Delivery Room Air Intake/Output Intake/Output: Intake & Output 12/08/23 12/09/23 12/10/23 12/11/23 23:59 23:59 23:59 23:59 Intake Total 1330 2000 1670 500 Output Total 33370 2300 3550 1275 [facility] -8670 -300 -1880 -775 Meds/Results Medications: Active Medications Generic Name Dose Route Start Last Admin Trade Name Freq PRN Reason Stop Dose Admin Bisacodyl 10 mg 12/09/23 12:07 12/09/23 20:26 Bisacodyl 10 Mg Suppository RECTAL 10 mg QAM PRN Administration Constipation Hyoscyamine 0.125 mg 12/10/23 14:49 12/11/23 03:37 Hyoscyamine Sulfate 0.125 Mg Tablet PO 0.125 mg Q4H PRN Administration Bladder Spasm Ibuprofen 600 mg 12/09/23 12:07 12/09/23 16:23 Ibuprofen 600 Mg Tablet PO 600 mg Q6H PRN Administration Mild Pain (1-3) or Fever Levothyroxine Sodium 112 mcg 12/09/23 06:30 12/11/23 05:50 Levothyroxine Sodium 112 Mcg Tablet PO 112 mcg DAILY@0630 ANNIE Administration Lisinopril 20 mg 12/09/23 09:00 12/10/23 08:46 Lisinopril 20 Mg Tablet PO 20 mg DAILY ANNIE Administration Lorazepam 1 mg 12/08/23 12:51 12/11/23 06:18 Lorazepam (*Crx) 1 Mg Tablet PO 1 mg Q8H PRN Administration Anxiety Meclizine HCl 25 mg 12/08/23 12:50 Meclizine Hcl 25 Mg Tablet PO BID PRN dizziness Oxybutynin Chloride 2.5 mg 12/09/23 09:00 12/10/23 17:45 Oxybutynin Chloride 2.5 Mg Tab PO Not Given TID ANNIE Oxybutynin Chloride 5 mg 12/09/23 09:00 12/10/23 17:45 Oxybutynin Chloride 5 Mg Tablet PO Not Given TID ANNIE Pantoprazole Sodium 20 mg 12/08/23 21:00 12/10/23 21:07 Pantoprazole Sod Sesquihydrate 20 Mg Tab PO 20 mg Q12HR ANNIE Administration Rosuvastatin
[2023-12-11] MEDS: SODIUM CHLORIDE 1 GM TABLET PO ×3 (09:40→21:22)
--- NOTE | 2023-12-11 11:10 | PM.IMPN ---
Progress Note: A&P Assessment and Plan (1) Acute urinary retention: Code(s): R33.8 - Other retention of urine Status: Acute Assessment and Plan: Recurrent issue, CBI catheter in place and Urology consulted. Bloody drainage from CBI catheter at this time. Oxybutynin ordered for bladder spasms by Urology. 12/10: Levsin works well for bladder spasms. CBI had to be restarted due to continued bleeding with clots. 12/11: Novoa draining pinkish urine. Patient to go to the operating room this afternoon for clot evacuation and possible cauterization (2) Hyponatremia: Code(s): E87.1 - Hypo-osmolality and hyponatremia Status: Acute Assessment and Plan: History of mild hyponatremia, on hydrochlorothiazide at home. Will hold hydrochlorothiazide. Sodium 130 today 12/09: Sodium to 128 today. Ordered sodium tabs. Unable to collect usual urine labs for hyponatremia due to CBI 12/10: Sodium to 123. Patient states he will not be able to fluid restrict. 12/11: Sodium 127, increased salt tabs to 1 g TID, suspect self correction after no longer experiencing severe bladder spasms (3) Hematuria: Code(s): R31.9 - Hematuria, unspecified Status: Acute Assessment and Plan: Recurrent issue, CBI catheter in place and Urology consulted. Bloody drainage from CBI catheter at this time. Oxybutynin ordered for bladder spasms by Urology. (4) Prostate cancer: Code(s): C61 - Malignant neoplasm of prostate Status: Acute Assessment and Plan: Recurrent issue, CBI catheter in place and Urology consulted. Bloody drainage from CBI catheter at this time. Oxybutynin ordered for bladder spasms by Urology. 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: Code(s): F06.4 - Anxiety disorder due to known physiological condition Status: Acute Assessment and Plan: PRN lorazepam for anxiety related to bladder spasm Time Spent With Patient Time with patient: 15 - 25 minutes Subjective Date/time seen: 12/11/23 11:10 Review of Systems Review of Systems: All systems reviewed & are unremarkable except as noted in HPI and below Exam Narrative: General: Awake, alert, comfortable, no acute distress HEENT: Normocephalic, atraumatic, sclerae anicteric Respiratory: Normal respiratory effort, no accessory muscle use Abdomen: Nondistended, soft, nontender : novoa catheter draining pinkish red urine without clots Skin: Normal coloration, warm and dry Neurologic: No focal neuro deficits noted Psychiatric: Appropriate mood and affect, judgment and insight intact Objective Data Vital Signs Vital Signs: Vital Signs - 24 hr 12/10/23 14:00 12/10/23 20:08 12/11/23 04:53 Temperature 36.9 C 36.6 C 36.4 C Pulse Rate 72 70 67 Respiratory Rate 16 17 17 Blood Pressure 110/58 L 136/72 119/62 Pulse Oximetry 98 99 99 Oxygen Delivery 12/11/23 07:59 12/11/23 07:50 Temperature 36.6 C Pulse Rate 72 Respiratory Rate 15 16 Blood Pressure 109/68 Pulse Oximetry 99 99 Oxygen Delivery Room Air Intake/Output Intake/Output: Intake & Output 12/08/23 12/09/23 12/10/23 12/11/23 23:59 23:59 23:59 23:59 Intake Total 1330 2000 1670 500 Output Total 46525 2300 3550 1275 [facility] -8670 -300 -1880 -775 Meds/Results Medications: Active Medications Generic Name Dose Route Start Last Admin Trade Name Freq PRN Reason Stop Dose Admin Bisacodyl 10 mg 12/09/23 12:07 12/09/23 20:26 Bisacodyl 10 Mg Suppository RECTAL 10 mg QAM PRN Administration Constipation Hyoscyamine 0.125 mg 12/10/23 14:49 12/11/23 03:37 Hyoscyamine Sulfate 0.125 Mg Tablet PO 0.125 mg Q4H PRN
--- NOTE | 2023-12-11 11:40 | PC.NURSE ---
To OR via stretcher. Lindsey draining red urine. Telephone report give to Andriy BARRON Preop Nurse.
--- NOTE | 2023-12-11 12:04 | WPDANESEPPF ---
Anes - Initial Pre Proc Eval Procedure: Operation Date: 12/11/23 16:00 Proposed Procedures p Cystoscopy, Evacuation Bladder Clots - Joey Matias MD Date/Time: 12/11/23 12:04 Surgeon: Niranjan García MD Pre Op Diagnosis: Hematuria Patient Data Age: 73 Gender: M Height: 1.73 m Weight: 81.4 kg Last Vital Signs Temp 36.6 C 12/11/23 07:59 Pulse 72 12/11/23 07:59 Resp 15 12/11/23 07:59 BP 109/68 12/11/23 07:59 Pulse Ox 99 12/11/23 07:59 O2 Del Method Room Air 12/11/23 07:50 Allergies Allergy/AdvReac Type Severity Reaction Status Date / Time No Known Allergies Allergy Unknown Verified 12/08/23 12:34 Home Medications Medication Instructions Recorded Confirmed Type rosuvastatin 20 mg tablet 20 mg PO DAILY #90 tabs 04/12/23 12/08/23 Rx levothyroxine 112 mcg tablet 112 mcg PO DAILY #90 tabs 07/05/23 12/08/23 Rx hydrochlorothiazide 25 mg tablet 12.5 mg PO DAILY #90 tabs 07/16/23 12/08/23 Rx lisinopril 20 mg tablet 20 mg PO DAILY #90 tabs 10/06/23 12/08/23 Rx omeprazole 20 mg capsule,delayed See Rx Instructions .Route 10/24/23 12/08/23 Rx release .COMPLEX #90 caps tamsulosin 0.4 mg capsule 0.4 mg PO DAILY 10/24/23 12/08/23 History meclizine 25 mg tablet 25 mg PO BID PRN dizziness #60 tabs 11/29/23 12/08/23 Rx Laboratory Tests 12/10/23 12/10/23 12/11/23 14:23 22:01 05:26 WBC RBC Hgb Hct MCV MCH MCHC RDW Plt Count MPV Immature Gran % (Auto) Neut % (Auto) Lymph % (Auto) Cannon % (Auto) Eos % (Auto) Baso % (Auto) Lymph # (Auto) Cannon # (Auto) Eos # (Auto) Baso # (Auto) Abs Immat Gran (auto) Absolute Neuts (auto) Absolute Nucleated RBC Nucleated RBC % Sodium 127 L mmol/L 125 L mmol/L (137-145) (137-145) Potassium Chloride Carbon Dioxide Anion Gap BUN Creatinine Estim Creat Clear Calc Estimated GFR Glucose Calcium Magnesium Total Bilirubin AST ALT Alkaline Phosphatase Total Protein Albumin TSH (Reflex) 2.320 uIU/mL (0.465-4.68) 12/11/23 05:29 WBC 5.1 K/mm3 (4.5-10.0) RBC 3.29 L M/mm3 (4.6-6.20) Hgb 9.2 L g/dL (14.0-18.0) Hct 28.4 L % (42.0-52.0) MCV 86.3 fl (80-100) MCH 28.0 pg (26-34) MCHC 32.4 g/dl (32-36) RDW 16.4 H % (11.5-14.5) Plt Count 272 k/mm3 (150-375) MPV 9.2 fl (7.4-10.4) Immature Gran % (Auto) 0.2 % (0-0.5) Neut % (Auto) 73.5 H % (45.5-73.1) Lymph % (Auto) 10.5 L % (18.3-44.2) Cannon % (Auto) 11.3 H % (2.6-8.5) Eos % (Auto) 3.7 % (0-4.4) Baso % (Auto) 0.8 % (0.2-1.2) Lymph # (Auto) 0.54 L K/mm3 (0.9-3.2) Cannon # (Auto) 0.6 K/mm3 (0.1-0.6) Eos # (Auto) 0.2 K/mm3 (0-0.3) Baso # (Auto) 0.0 K/mm3 (0.0-0.1) Abs Immat Gran (auto) 0.01 K/mm3 (0.00-0.031) Absolute Neuts (auto) 3.8 K/mm3 (1.3-6.7) Absolute Nucleated RBC 0.0 K/mm3 (0.0-0.012) Nucleated RBC % 0.0 % (0.0-0.2) Sodium 127 L mmol/L (137-145) Potassium 4.2 mmol/L (3.4-5.0) Chloride 97 L mmol/L (98-107) Carbon Dioxide 26 mmol/L (22-30) Anion Gap 4 L mmol/L (8-16) BUN 13 mg/dL (9-20) Creatinine 0.90 mg/dL (0.7-1.3) Estim Creat Clear Calc 62 ml/min Estimated GFR > 60 (59 - ) Glucose 92 mg/dL (65-110) Calcium 8.8 mg/dL (8.4-10.2) Magnesium 2.2 mg/dL (1.6-2.3) Total Bilirubin 0.7 mg/dL (0.2-1.3) AST 27 U/L (17-59) ALT 14 U/L (6-50) Alkaline Phosphatase 49
[2023-12-11] MEDS: LACTATED RINGERS 1,000 ML 30 ML IV CONT (12:20)
--- NOTE | 2023-12-11 12:41 | WPDHPUPDATE1 ---
History and Physical Update Update Date/Time: 12/11/23 12:41 History and Physical has been reviewed, including an updated exam of the patient. There are NO changes in the patient's condition. Risks, benefits, and alternatives have been discussed and questions answered. Patient agrees to proceed with procedure.
--- NOTE | 2023-12-11 13:13 | W.PM.PROC2 ---
Procedure Note - Detailed Date of Procedure 12/11/23 Pre-op Diagnosis Hematuria Post-op Diagnosis Same Procedure Performed Cystoscopy, clot evacuation, cauterization bladder and prostatic urethra Surgeon Joey Matias MD Anesthesia General Description of Procedure Patient brought the op suite was prepped and draped in routine sterile fashion while in dorsal lithotomy position. 2% xylocaine jelly was introduced intraurethrally and anesthesia was administered per the anesthesia department. Cystoscopy was undertaken with a 21 F rigid cystoscope and later a 20 4 F resectoscope. Patient has a moderate amount of dependent clot in the bladder which was evacuated using a Franck syringe. Bladder was then very carefully inspected. There was no recurrent neoplasm. There is no signs of radiation cystitis bid. The mucosa is pink, without hyperemia, throughout. The prostatic urethra has some mild oozing as does the posterior bladder wall. Using a roller ball these areas are cauterized. Then removed the resectoscope and placed a 22 F hematuria catheter continuous irrigation. Efflux was clear at the termination. Urine Output 400 Complications No immediate complications Condition Stable Disposition PACU
[2023-12-11] MEDS: fentaNYL CITRATE INJ (*CRX) 100 MCG/2 ML VIAL 25 MCG IV PUSH (13:27)
[2023-12-11] MEDS: oxyBUTYnin CHLORIDE 5 MG TABLET PO ×2 (14:42→21:22)
[2023-12-11] MEDS: oxyBUTYnin CHLORIDE 2.5 MG TAB PO ×2 (14:42→21:21)
[2023-12-11] MEDS: HYDROcodone/acetaminophen (*CRX) 10-325 MG TABLET 1 TAB PO (15:40)
[2023-12-11] MEDS: PANTOPRAZOLE SOD SESQUIHYDRATE 20 MG TAB PO (21:22)
[2023-12-11] MEDS: HYDROcodone/acetaminophen (*CRX) 5-325 MG TABLET 1 TAB PO (21:22)
[2023-12-12 00:17] VITALS: BP 117/67; PULSE 72; RESP 16; TEMP 36.5; O2SAT 97
[2023-12-12] MEDS: HYOSCYAMINE SULFATE 0.125 MG TABLET PO ×3 (03:30→20:31)
[2023-12-12 04:54] VITALS: BP 118/71; PULSE 82; RESP 14; TEMP 36.4; O2SAT 97
[2023-12-12 05:22] LABS: Basophils Percent Auto 0.2 % (0.2-1.2); Eosinophils Percent Auto 0.2 % (0-4.4); Hemoglobin 9.4 g/dL (14.0-18.0); Immature Granulocyte Absolute 0.02 K/mm3 (0.00-0.031); Immature Granulocyte Percent A 0.4 % (0-0.5); Lymphocytes Absolute Auto 0.55 K/mm3 (0.9-3.2); Lymphocytes Percent Auto 10.6 % (18.3-44.2); Mean Corpuscular HGB Conc 32.4 g/dl (32-36); Mean Corpuscular Hemoglobin 28.1 pg (26-34); Mean Corpuscular Volume 86.6 fl (80-100); Monocytes Absolute Auto 0.5 K/mm3 (0.1-0.6); Monocytes Percent Auto 9.2 % (2.6-8.5); Neutrophils Absolute Auto 4.1 K/mm3 (1.3-6.7); Neutrophils Percent Auto 79.4 % (45.5-73.1); Platelet Count Result 311 k/mm3 (150-375); Red Blood Count 3.35 M/mm3 (4.6-6.20); Red Cell Distribution Width 16.3 % (11.5-14.5); White Blood Count 5.2 K/mm3 (4.5-10.0)
[2023-12-12 05:28] LABS: Alanine Aminotransferase 13 U/L (6-50); Albumin Level 3.7 g/dL (3.5-5.1); Alkaline Phosphatase 54 U/L (38-126); Anion Gap 8 mmol/L (8-16); Aspartate Amino Transferase 19 U/L (17-59); Bilirubin,Total 0.6 mg/dL (0.2-1.3); Blood Urea Nitrogen 15 mg/dL (9-20); Calcium 8.9 mg/dL (8.4-10.2); Carbon Dioxide 23 mmol/L (22-30); Chloride 100 mmol/L (98-107); Estimated CRCL calculation 69 ml/min; Estimated Glomerular Filt Rate > 60; Glucose 100 mg/dL (65-110); Magnesium 2.3 mg/dL (1.6-2.3); Potassium 4.3 mmol/L (3.4-5.0); Sodium 131 mmol/L (137-145)
[2023-12-12] MEDS: LEVOTHYROXINE SODIUM 112 MCG TABLET PO (06:15)
[2023-12-12] MEDS: HYDROcodone/acetaminophen (*CRX) 5-325 MG TABLET 1 TAB PO ×2 (06:16→20:33)
--- NOTE | 2023-12-12 08:03 | WPDUROPN2 ---
Progress Note: A&P Assessment and Plan (1) H/O prostate cancer: Code(s): Z85.46 - Personal history of malignant neoplasm of prostate Status: Acute (2) Hematuria: Code(s): R31.9 - Hematuria, unspecified Status: Acute Plan Reviewed cysto. finding with pt. and -> no neoplasm or rad. cystitis Stop CBI / voiding trial later today if stays relatively clear. Subjective Subjective Date/Time Seen: 12/12/23 08:03 Interval history: Comfortable, urine light pink on very slow drip Exam Const: General: no acute distress Resp: Effort & Inspection: normal respiratory effort GI: Inspection: non-distended GI Palp: No abdominal tenderness and No Guarding due to palpation present (GI) Auscultation: normal bowel sounds Urinary Catheter: Urinary Catheter: patent and draining and urine pink Objective Data Vital Signs Vital Signs: Vital Signs - 24 hr 12/11/23 12:17 12/11/23 13:10 12/11/23 13:25 Temperature 98.6 F 97.6 F Pulse Rate 77 103 H 82 Respiratory Rate 14 15 22 H Blood Pressure 140/66 139/80 142/81 H Pulse Oximetry 100 99 98 Oxygen Delivery Room Air Simple Face Mask Room Air Oxygen Flow Rate 4 12/11/23 13:40 12/11/23 13:55 12/11/23 14:10 Temperature Pulse Rate 79 80 79 Respiratory Rate 13 17 14 Blood Pressure 142/81 H 143/71 H 139/75 Pulse Oximetry 98 97 97 Oxygen Delivery Room Air Room Air Room Air Oxygen Flow Rate 12/11/23 14:25 12/11/23 14:35 12/11/23 14:35 Temperature 97.4 F L Pulse Rate 81 84 Respiratory Rate 16 16 18 Blood Pressure 144/76 H 154/75 H Pulse Oximetry 97 97 100 Oxygen Delivery Room Air Room Air Oxygen Flow Rate 12/11/23 14:50 12/11/23 15:20 12/11/23 17:39 Temperature 97.5 F L 97.5 F L Pulse Rate 82 83 93 Respiratory Rate 16 16 18 Blood Pressure 159/79 H 156/76 H 109/64 Pulse Oximetry 100 98 94 Oxygen Delivery Oxygen Flow Rate 12/11/23 20:01 12/12/23 00:17 12/12/23 04:54 Temperature 97.6 F 97.7 F 97.6 F Pulse Rate 85 72 82 Respiratory Rate 16 16 14 Blood Pressure 125/69 117/67 118/71 Pulse Oximetry 97 97 97 Oxygen Delivery Oxygen Flow Rate Intake/Output Intake/Output: Intake & Output 12/09/23 12/10/23 12/11/23 12/12/23 23:59 23:59 23:59 23:59 Intake Total 19990 1090 250 Output Total 2300 3550 6500 1850 Balance -300 -1880 -5410 -1600 Meds/Results Medications: Active Medications Generic Name Dose Route Start Last Admin Trade Name Freq PRN Reason Stop Dose Admin Hydrocodone Bitart/Acetaminophen 1 tab 12/11/23 15:19 12/12/23 06:16 Hydrocodone/Acetaminophen (*Crx) 5-325 Mg Tablet PO 1 tab Q6H PRN Administration Pain Rated 8-10 Bisacodyl 10 mg 12/09/23 12:07 12/09/23 20:26 Bisacodyl 10 Mg Suppository RECTAL 10 mg QAM PRN Administration Constipation Hyoscyamine 0.125 mg 12/10/23 14:49 12/12/23 03:30 Hyoscyamine Sulfate 0.125 Mg Tablet PO 0.125 mg Q4H PRN Administration Bladder Spasm Ibuprofen 600 mg 12/09/23 12:07 12/09/23 16:23 Ibuprofen 600 Mg Tablet PO 600 mg Q6H PRN Administration Mild Pain (1-3) or Fever Levothyroxine Sodium 112 mcg 12/09/23 06:30 12/12/23 06:15 Levothyroxine Sodium 112 Mcg Tablet PO 112 mcg DAILY@0630 ANNIE Administration Lisinopril 20 mg 12/09/23 09:00 12/11/23 09:37 Lisinopril 20 Mg Tablet PO Not Given DAILY ANNIE Lorazepam 1 mg 12/08/23 12:51 12/11/23 16:45 Lorazepam (*Crx) 1 Mg Tablet PO 1 mg Q8H PRN Administration Anxiety Meclizine HCl 25 mg 12/08/23 12:50 Meclizine Hcl 25 Mg Tablet PO BID PRN dizziness Oxybutynin Chloride 2.5 mg 12/09/23 09:00 12/11/23 21:21 Oxybutynin Chloride 2.5 Mg Tab PO 2.5 mg TID ANNIE Administration Oxybutynin Chloride 5 mg 12/09/23 09:00 12/11/23 21:22 Oxybutynin Chloride 5 Mg Tablet PO 5 mg TID ANNIE Administration Pantoprazole Sodium 20 mg 12/08/23 21:00 12/11/23 21:22 Pantoprazole S
[2023-12-12] MEDS: lisinopriL 20 MG TABLET PO (08:39)
[2023-12-12] MEDS: SODIUM CHLORIDE 1 GM TABLET PO ×3 (08:39→18:51)
[2023-12-12] MEDS: TAMSULOSIN HCL 0.4 MG CAPSULE PO (08:39)
[2023-12-12] MEDS: ROSUVASTATIN 10 MG TABLET 20 MG PO (08:39)
[2023-12-12] MEDS: PANTOPRAZOLE SOD SESQUIHYDRATE 20 MG TAB PO ×2 (08:39→20:31)
[2023-12-12] MEDS: oxyBUTYnin CHLORIDE 2.5 MG TAB PO ×3 (08:39→18:51)
[2023-12-12] MEDS: oxyBUTYnin CHLORIDE 5 MG TABLET PO ×3 (08:40→18:51)
[2023-12-12 09:00] VITALS: BP 120/74; PULSE 84; RESP 15; TEMP 36.5; O2SAT 97
--- NOTE | 2023-12-12 12:01 | PM.IMPN ---
Progress Note: A&P Assessment and Plan (1) Acute urinary retention: Code(s): R33.8 - Other retention of urine Status: Acute Assessment and Plan: Recurrent issue, CBI catheter in place and Urology consulted. Bloody drainage from CBI catheter at this time. Oxybutynin ordered for bladder spasms by Urology. 12/10: Levsin works well for bladder spasms. CBI had to be restarted due to continued bleeding with clots. 12/11: Lindsey draining pinkish urine. Patient to go to the operating room this afternoon for clot evacuation and possible cauterization 12/12: CBI has been clamped per Urology. Catheter is draining a dark pink colored urine only. Pt without any acute distress. Voiding trial ordered by Urology today. (2) Hyponatremia: Code(s): E87.1 - Hypo-osmolality and hyponatremia Status: Acute Assessment and Plan: History of mild hyponatremia, on hydrochlorothiazide at home. Will hold hydrochlorothiazide. Sodium 130 today 12/09: Sodium to 128 today. Ordered sodium tabs. Unable to collect usual urine labs for hyponatremia due to CBI 12/10: Sodium to 123. Patient states he will not be able to fluid restrict. 12/11: Sodium 127, increased salt tabs to 1 g TID, suspect self correction after no longer experiencing severe bladder spasms 12/12: Improved sodium to 131 today. At the time of discharge pt will need continued correction with salt tabs for a couple of days and close re-evaluation in the next 2 days to check sodium level. Results to go to PCP. (3) Hematuria: Code(s): R31.9 - Hematuria, unspecified Status: Chronic Assessment and Plan: Recurrent issue, CBI catheter in place and Urology consulted. Bloody drainage from CBI catheter at this time. Oxybutynin ordered for bladder spasms by Urology. 12/12: See above plans. (4) Prostate cancer: Code(s): C61 - Malignant neoplasm of prostate Status: Chronic Assessment and Plan: Recurrent issue, CBI catheter in place and Urology consulted. Bloody drainage from CBI catheter at this time. Oxybutynin ordered for bladder spasms by Urology. (5) Hypertension: Qualifiers: Hypertension type: essential hypertension Qualified Code(s): I10 - Essential (primary) hypertension Code(s): I10 - Essential (primary) hypertension Status: Acute Assessment and Plan: Stable, continue home medications 12/12: BP remains stable without any fluctuations. Home meds need not be adjusted or changed at this time. (6) Anxiety disorder due to medical condition: Code(s): F06.4 - Anxiety disorder due to known physiological condition Status: Acute Assessment and Plan: PRN lorazepam for anxiety related to bladder spasm 12/12: Pt reports that his anxiety is improved overall and he has done well with the prn meds. Time Spent With Patient Time with patient: 15 - 25 minutes Subjective Date/time seen: 12/12/23 0850 Interval history: This very pleasant, 73 year old male pt with PMH significant of prostate CA status post Chemotherapy and Radiation, Bladder Cancer, Tongue Cancer, HTN, HLD, and hypothyroidism who was admitted to the hospital on 12/08 for repeat urinary retention w/hematuria and bladder spasms and underwent Cystoscopy with clot evacuation and cauterization of the bladder and prostatic urethra yesterday is recovering nicely. He has no post-operative pain and his CBI has been clamped today. He has had a favorable post-operative course thus far without any complications other than a low sodium that has slowly been started to be recorrected with salt tabs and IVF. Urology service is managing pt's post-surgical care and otherwise he has remained medically stable with regards to hemodynamic status and labs. Pt is in good spirits without any acute complaints today. At discharge, pt will need 1-2 days of prescribed salt tabs with recheck of labs in 2 days with results sent to his PCP, as well as Dr. Matias. Lana
[2023-12-12 13:00] VITALS: BP 124/72; PULSE 100; RESP 16; TEMP 36.4; O2SAT 97
--- NOTE | 2023-12-12 14:14 | PM.DS ---
DS: Admitting Diagnosis Discharge Date 12/12/23 Admitting Diagnosis Urinary Retention Hyponatremia Chronic Hematuria Prostate Cancer Hypertension Anxiety DS: Discharge Diagnosis Discharge Diagnosis (1) Acute urinary retention: Code(s): R33.8 - Other retention of urine Status: Acute Assessment and Plan: Recurrent issue, CBI catheter in place and Urology consulted. Bloody drainage from CBI catheter at this time. Oxybutynin ordered for bladder spasms by Urology. 12/10: Levsin works well for bladder spasms. CBI had to be restarted due to continued bleeding with clots. 12/11: Lindsey draining pinkish urine. Patient to go to the operating room this afternoon for clot evacuation and possible cauterization 12/12: CBI has been clamped per Urology. Catheter is draining a dark pink colored urine only. Pt without any acute distress. Voiding trial ordered by Urology today and pt did well without difficulty. He has been cleared per Urology for discharge and Medicine service agrees. Pt. to discharge to home at this time. (2) Hyponatremia: Code(s): E87.1 - Hypo-osmolality and hyponatremia Status: Acute Assessment and Plan: History of mild hyponatremia, on hydrochlorothiazide at home. Will hold hydrochlorothiazide. Sodium 130 today 12/09: Sodium to 128 today. Ordered sodium tabs. Unable to collect usual urine labs for hyponatremia due to CBI 12/10: Sodium to 123. Patient states he will not be able to fluid restrict. 12/11: Sodium 127, increased salt tabs to 1 g TID, suspect self correction after no longer experiencing severe bladder spasms 12/12: Improved sodium to 131 today. At the time of discharge pt will need continued correction with salt tabs for a couple of days and close re-evaluation in the next 2 days to check sodium level. Results to go to PCP. Will have pt follow up with PCP at discharge. (3) Hematuria: Code(s): R31.9 - Hematuria, unspecified Status: Chronic Assessment and Plan: Recurrent issue, CBI catheter in place and Urology consulted. Bloody drainage from CBI catheter at this time. Oxybutynin ordered for bladder spasms by Urology. 12/12: See above plans. (4) Prostate cancer: Code(s): C61 - Malignant neoplasm of prostate Status: Chronic Assessment and Plan: Recurrent issue, CBI catheter in place and Urology consulted. Bloody drainage from CBI catheter at this time. Oxybutynin ordered for bladder spasms by Urology. (5) Hypertension: Qualifiers: Hypertension type: essential hypertension Qualified Code(s): I10 - Essential (primary) hypertension Code(s): I10 - Essential (primary) hypertension Status: Acute Assessment and Plan: Stable, continue home medications 12/12: BP remains stable without any fluctuations. Home meds need not be adjusted or changed at this time. (6) Anxiety disorder due to medical condition: Code(s): F06.4 - Anxiety disorder due to known physiological condition Status: Acute Assessment and Plan: PRN lorazepam for anxiety related to bladder spasm 12/12: Pt reports that his anxiety is improved overall and he has done well with the prn meds. DS: Summary Hospital Course Reason for hospitalization: Urology evaluation and management of persistent Urinary Retention. Hospital Course: This very pleasant, 73 year old male pt with PMH significant of prostate CA status post Chemotherapy and Radiation, Bladder Cancer, Tongue Cancer, HTN, HLD, and hypothyroidism who was admitted to the hospital on 12/08 for repeat urinary retention w/hematuria and bladder spasms and underwent Cystoscopy with clot evacuation and cauterization of the bladder and prostatic urethra yesterday is recovering nicely. He has no post-operative pain and his CBI has been clamped today. He has had a favorable post-operative course thus far without any complications other than a low sodium that has slowly been started to be recorrected w
--- NOTE | 2023-12-12 14:39 | WPDANESPN ---
Anes - Prog Note Post-Op Date/Time: 12/12/23 14:39 Cardiovascular status: normal Respiratory status: normal Airway patency: baseline Mental status: baseline Post-Op hydration status: normal Vital Signs: Last Vital Signs Temp 97.6 F 12/12/23 13:00 Pulse 100 12/12/23 13:00 Resp 16 12/12/23 13:00 BP 124/72 12/12/23 13:00 Pulse Ox 97 12/12/23 13:00 O2 Del Method Room Air 12/11/23 14:35 O2 Flow Rate 4 12/11/23 13:10 Pain Score (VAS): 0/10 I/O: Intake & Output 12/11/23 12/12/23 12/12/23 23:59 07:59 15:59 Intake Total 490 250 480 Output Total 300 1850 Balance 190 -1600 480 Laboratory Tests 12/12/23 04:51 12/12/23 04:51 12/12/23 04:51 WBC 5.2 RBC 3.35 L Hgb 9.4 L Hct 29.0 L MCV 86.6 MCH 28.1 MCHC 32.4 RDW 16.3 H Plt Count 311 MPV 9.0 Immature Gran % (Auto) 0.4 Neut % (Auto) 79.4 H Lymph % (Auto) 10.6 L Zapata % (Auto) 9.2 H Eos % (Auto) 0.2 Baso % (Auto) 0.2 Lymph # (Auto) 0.55 L Zapata # (Auto) 0.5 Eos # (Auto) 0.0 Baso # (Auto) 0.0 Abs Immat Gran (auto) 0.02 Absolute Neuts (auto) 4.1 Absolute Nucleated RBC 0.0 Nucleated RBC % 0.0 Sodium 131 L Potassium 4.3 Chloride 100 Carbon Dioxide 23 Anion Gap 8 BUN 15 Creatinine 0.80 Estim Creat Clear Calc 69 Estimated GFR > 60 Glucose 100 Calcium 8.9 Magnesium 2.3 Total Bilirubin 0.6 AST 19 ALT 13 Alkaline Phosphatase 54 Total Protein 7.0 Albumin 3.7 Post-procedural complaints: none Patient Feedback: Patient satisfied with anesthetic care.
[2023-12-12] MEDS: LORazepam (*CRX) 1 MG TABLET PO (16:34)
[2023-12-12 17:00] VITALS: BP 124/70; PULSE 92; RESP 16; TEMP 36.6; O2SAT 97
--- NOTE | 2023-12-12 18:49 | PC.NURSE ---
163 LIAM IN UROLOGY NOTIFIED THAT PATIENT HAS ONLY VOIDED ONCE AFTER CATH PULLED. BLADDER SCAN 300 ML.
[2023-12-12 20:29] VITALS: BP 121/56; PULSE 78; RESP 20; TEMP 36.2; O2SAT 100
[2023-12-13] VITALS (7 sets, daily range): BP systolic 101–126; BP diastolic 55–72; PULSE 60–79; RESP 14–18; TEMP 36.4–37.1; O2SAT 98–99
[2023-12-13] MEDS: LORazepam (*CRX) 1 MG TABLET PO (00:45)
[2023-12-13] MEDS: HYOSCYAMINE SULFATE 0.125 MG TABLET PO ×4 (00:45→16:09)
[2023-12-13] MEDS: LEVOTHYROXINE SODIUM 112 MCG TABLET PO (05:11)
[2023-12-13] MEDS: HYDROcodone/acetaminophen (*CRX) 5-325 MG TABLET 1 TAB PO ×2 (05:11→20:20)
[2023-12-13 05:18] LABS: Basophils Percent Auto 0.5 % (0.2-1.2); Eosinophils Absolute Auto 0.2 K/mm3 (0-0.3); Hematocrit 25.4 % (42.0-52.0); Hemoglobin 8.3 g/dL (14.0-18.0); Immature Granulocyte Absolute 0.02 K/mm3 (0.00-0.031); Immature Granulocyte Percent A 0.3 % (0-0.5); Lymphocytes Absolute Auto 0.88 K/mm3 (0.9-3.2); Lymphocytes Percent Auto 15.3 % (18.3-44.2); Mean Corpuscular HGB Conc 32.7 g/dl (32-36); Mean Corpuscular Hemoglobin 28.1 pg (26-34); Mean Corpuscular Volume 86.1 fl (80-100); Mean Platelet Volume 8.7 fl (7.4-10.4); Monocytes Absolute Auto 0.7 K/mm3 (0.1-0.6); Monocytes Percent Auto 11.4 % (2.6-8.5); Neutrophils Percent Auto 68.5 % (45.5-73.1); Platelet Count Result 285 k/mm3 (150-375); Red Blood Count 2.95 M/mm3 (4.6-6.20); Red Cell Distribution Width 16.8 % (11.5-14.5); White Blood Count 5.8 K/mm3 (4.5-10.0)
[2023-12-13 05:36] LABS: Alanine Aminotransferase 12 U/L (6-50); Albumin Level 3.3 g/dL (3.5-5.1); Alkaline Phosphatase 48 U/L (38-126); Anion Gap 1 mmol/L (8-16); Aspartate Amino Transferase 22 U/L (17-59); Bilirubin,Total 0.4 mg/dL (0.2-1.3); Blood Urea Nitrogen 15 mg/dL (9-20); Calcium 8.6 mg/dL (8.4-10.2); Carbon Dioxide 29 mmol/L (22-30); Chloride 101 mmol/L (98-107); Estimated CRCL calculation 51 ml/min; Estimated Glomerular Filt Rate > 60; Glucose 84 mg/dL (65-110); Magnesium 2.2 mg/dL (1.6-2.3); Potassium 4.2 mmol/L (3.4-5.0); Sodium 131 mmol/L (137-145)
--- NOTE | 2023-12-13 06:36 | PC.NURSE ---
Dr. Matias here and aware patient refused to go home yesterday with novoa catheter in place.
--- NOTE | 2023-12-13 06:59 | WPDUROPN2 ---
Progress Note: A&P Assessment and Plan (1) H/O prostate cancer: Code(s): Z85.46 - Personal history of malignant neoplasm of prostate Status: Acute (2) Hematuria: Code(s): R31.9 - Hematuria, unspecified Status: Acute Assessment and Plan: Failed voiding trial for unclear reasons yesterday. He has no outlet obstruction and did not appear to have significant hematuria or clots. . Remove catheter again this morning for another voiding trial Subjective Subjective Date/Time Seen: 12/13/23 06:59 Interval history: Failed voiding trial yesterday without significant hematuria/clots Review of Systems Cardiovascular: Cardiovascular: Denies chest pain, Denies lightheadedness, Denies palpitations and Denies dyspnea Respiratory: Respiratory: Denies dyspnea Gastrointestinal: Gastrointestinal: Denies diarrhea, Denies nausea and Denies vomiting Genitourinary: Genitourinary: Denies hematuria and Denies dysuria Endocrine: Endocrine: Denies palpitations Exam Const: General: no acute distress Resp: Effort & Inspection: normal respiratory effort GI: Inspection: non-distended GI Palp: No abdominal tenderness and No Guarding due to palpation present (GI) Auscultation: normal bowel sounds Objective Data Vital Signs Vital Signs: Vital Signs - 24 hr 12/12/23 09:00 12/12/23 13:00 12/12/23 08:40 Temperature 97.7 F 97.6 F Pulse Rate 84 100 Respiratory Rate 15 16 Blood Pressure 120/74 124/72 Pulse Oximetry 97 97 Oxygen Delivery Room Air 12/12/23 17:00 12/12/23 20:29 12/13/23 01:00 Temperature 97.8 F 97.2 F L 97.5 F L Pulse Rate 92 78 60 Respiratory Rate 16 20 14 Blood Pressure 124/70 121/56 L 122/60 Pulse Oximetry 97 100 98 Oxygen Delivery 12/13/23 04:55 Temperature 97.6 F Pulse Rate 72 Respiratory Rate 14 Blood Pressure 122/66 Pulse Oximetry 99 Oxygen Delivery Intake/Output Intake/Output: Intake & Output 12/10/23 12/11/23 12/12/23 12/13/23 23:59 23:59 23:59 23:59 Intake Total 1670 1090 1520 200 Output Total 3550 6500 3551 172 Balance -9660 -5410 -1 -1525 Meds/Results Medications: Active Medications Generic Name Dose Route Start Last Admin Trade Name Freq PRN Reason Stop Dose Admin Hydrocodone Bitart/Acetaminophen 1 tab 12/11/23 15:19 12/13/23 05:11 Hydrocodone/Acetaminophen (*Crx) 5-325 Mg Tablet PO 1 tab Q6H PRN Administration Pain Rated 8-10 Bisacodyl 10 mg 12/09/23 12:07 12/09/23 20:26 Bisacodyl 10 Mg Suppository RECTAL 10 mg QAM PRN Administration Constipation Hyoscyamine 0.125 mg 12/10/23 14:49 12/13/23 05:11 Hyoscyamine Sulfate 0.125 Mg Tablet PO 0.125 mg Q4H PRN Administration Bladder Spasm Ibuprofen 600 mg 12/09/23 12:07 12/09/23 16:23 Ibuprofen 600 Mg Tablet PO 600 mg Q6H PRN Administration Mild Pain (1-3) or Fever Levothyroxine Sodium 112 mcg 12/09/23 06:30 12/13/23 05:11 Levothyroxine Sodium 112 Mcg Tablet PO 112 mcg DAILY@0630 ANNIE Administration Lisinopril 20 mg 12/09/23 09:00 12/12/23 08:39 Lisinopril 20 Mg Tablet PO 20 mg DAILY ANNIE Administration Lorazepam 1 mg 12/08/23 12:51 12/13/23 00:45 Lorazepam (*Crx) 1 Mg Tablet PO 1 mg Q8H PRN Administration Anxiety Meclizine HCl 25 mg 12/08/23 12:50 Meclizine Hcl 25 Mg Tablet PO BID PRN dizziness Oxybutynin Chloride 2.5 mg 12/09/23 09:00 12/12/23 18:51 Oxybutynin Chloride 2.5 Mg Tab PO 2.5 mg TID ANNIE Administration Oxybutynin Chloride 5 mg 12/09/23 09:00 12/12/23 18:51 Oxybutynin Chloride 5 Mg Tablet PO 5 mg TID ANNIE Administration Pantoprazole Sodium 20 mg 12/08/23 21:00 12/12/23 20:31 Pantoprazole Sod Sesquihydrate 20 Mg Tab PO 20 mg Q12HR ANNIE Administration Rosuvastatin Calcium 20 mg 12/09/23 09:00 12/12/23 08:39 Rosuvastatin 10 Mg Tablet PO 20 mg DAILY ANNIE Administration Sodium Chloride 1 gm 12/11/23 09:00
[2023-12-13] MEDS: oxyBUTYnin CHLORIDE 2.5 MG TAB PO ×2 (09:51→13:31)
[2023-12-13] MEDS: ROSUVASTATIN 10 MG TABLET 20 MG PO (09:52)
[2023-12-13] MEDS: SODIUM CHLORIDE 1 GM TABLET PO ×3 (09:52→16:09)
[2023-12-13] MEDS: TAMSULOSIN HCL 0.4 MG CAPSULE PO ×2 (09:52→16:09)
[2023-12-13] MEDS: lisinopriL 20 MG TABLET PO (09:52)
[2023-12-13] MEDS: PANTOPRAZOLE SOD SESQUIHYDRATE 20 MG TAB PO ×2 (09:52→20:20)
[2023-12-13] MEDS: oxyBUTYnin CHLORIDE 5 MG TABLET PO ×2 (09:52→13:31)
--- NOTE | 2023-12-13 09:52 | PM.IMPN ---
Progress Note: A&P Assessment and Plan (1) Acute urinary retention: Code(s): R33.8 - Other retention of urine Status: Acute Assessment and Plan: Recurrent issue, CBI catheter in place and Urology consulted. Bloody drainage from CBI catheter at this time. Oxybutynin ordered for bladder spasms by Urology. 12/10: Levsin works well for bladder spasms. CBI had to be restarted due to continued bleeding with clots. 12/11: Novoa draining pinkish urine. Patient to go to the operating room this afternoon for clot evacuation and possible cauterization 12/12: CBI has been clamped per Urology. Catheter is draining a dark pink colored urine only. Pt without any acute distress. Voiding trial ordered by Urology today and pt did well without difficulty. He has been cleared per Urology for discharge and Medicine service agrees. Pt. to discharge to home at this time. 12/13: Pt did not actually discharge yesterday despite the discharge being completed for reasons mentioned in interval assessment. He voided without difficulty twice after the novoa was removed and then he said he couldn't go. The catheter was replaced and he was to discharge, but the pt refused to go saying he knew he would not be able to drain urine once he got home and would have to come back to the ER. Urology saw this AM and removed catheter again. They will re-evaluate pt this afternoon. From a medical standpoint, the pt is cleared for discharge at this time. Awaiting Urology decision for further management. (2) Hyponatremia: Code(s): E87.1 - Hypo-osmolality and hyponatremia Status: Acute Assessment and Plan: History of mild hyponatremia, on hydrochlorothiazide at home. Will hold hydrochlorothiazide. Sodium 130 today 12/09: Sodium to 128 today. Ordered sodium tabs. Unable to collect usual urine labs for hyponatremia due to CBI 12/10: Sodium to 123. Patient states he will not be able to fluid restrict. 12/11: Sodium 127, increased salt tabs to 1 g TID, suspect self correction after no longer experiencing severe bladder spasms 12/12: Improved sodium to 131 today. At the time of discharge pt will need continued correction with salt tabs for a couple of days and close re-evaluation in the next 2 days to check sodium level. Results to go to PCP. Will have pt follow up with PCP at discharge. 12/13: Stable sodium at 131. (3) Hematuria: Code(s): R31.9 - Hematuria, unspecified Status: Chronic Assessment and Plan: Recurrent issue, CBI catheter in place and Urology consulted. Bloody drainage from CBI catheter at this time. Oxybutynin ordered for bladder spasms by Urology. 12/12: See above plans. 12/13: No bleeding noted. (4) Prostate cancer: Code(s): C61 - Malignant neoplasm of prostate Status: Chronic Assessment and Plan: Recurrent issue, CBI catheter in place and Urology consulted. Bloody drainage from CBI catheter at this time. Oxybutynin ordered for bladder spasms by Urology. (5) Hypertension: Qualifiers: Hypertension type: essential hypertension Qualified Code(s): I10 - Essential (primary) hypertension Code(s): I10 - Essential (primary) hypertension Status: Acute Assessment and Plan: Stable, continue home medications 12/12: BP remains stable without any fluctuations. Home meds need not be adjusted or changed at this time. 12/13: BP is stable. Continue home meds. (6) Anxiety disorder due to medical condition: Code(s): F06.4 - Anxiety disorder due to known physiological condition Status: Acute Assessment and Plan: PRN lorazepam for anxiety related to bladder spasm 12/12: Pt reports that his anxiety is improved overall and he has done well with the prn meds. 12/13: Pt with obvious anxiety related to urinating. He is ordered Xanax to help with symptoms. Time Spent With Patient Time with patient: 25 - 35 minutes Subjective Date/time seen: 12/13/23 0825 Interval history:
[2023-12-13] MEDS: DOCUSATE SODIUM 100 MG CAPSULE 200 MG PO (10:08)
[2023-12-13] MEDS: ALPRAZolam (*CRX) 0.5 MG TABLET PO (10:45)
[2023-12-13] MEDS: AMINOCAPROIC ACID INJ 5,000 MG in DEXTROSE 5% IN WATER 250 ML 250 MG IVPB (15:54)
[2023-12-14 02:54] VITALS: BP 98/50; PULSE 73; RESP 17; TEMP 36.7; O2SAT 98
[2023-12-14 05:10] LABS: Basophils Percent Auto 0.7 % (0.2-1.2); Eosinophils Absolute Auto 0.3 K/mm3 (0-0.3); Eosinophils Percent Auto 4.8 % (0-4.4); Hematocrit 25.2 % (42.0-52.0); Hemoglobin 8.2 g/dL (14.0-18.0); Immature Granulocyte Absolute 0.02 K/mm3 (0.00-0.031); Immature Granulocyte Percent A 0.4 % (0-0.5); Lymphocytes Absolute Auto 0.51 K/mm3 (0.9-3.2); Lymphocytes Percent Auto 9.4 % (18.3-44.2); Mean Corpuscular HGB Conc 32.5 g/dl (32-36); Mean Corpuscular Hemoglobin 28.1 pg (26-34); Mean Corpuscular Volume 86.3 fl (80-100); Monocytes Absolute Auto 0.6 K/mm3 (0.1-0.6); Monocytes Percent Auto 11.8 % (2.6-8.5); Neutrophils Percent Auto 72.9 % (45.5-73.1); Platelet Count Result 292 k/mm3 (150-375); Red Blood Count 2.92 M/mm3 (4.6-6.20); Red Cell Distribution Width 16.8 % (11.5-14.5); White Blood Count 5.4 K/mm3 (4.5-10.0)
[2023-12-14 05:21] LABS: INR 1.1; Partial Thromboplastin Time 25.8 SECONDS (22.3-36.8); Prothrombin Time 14.7 Seconds (11.1-14.7)
[2023-12-14 05:28] LABS: Alanine Aminotransferase 11 U/L (6-50); Albumin Level 3.3 g/dL (3.5-5.1); Alkaline Phosphatase 48 U/L (38-126); Anion Gap 3 mmol/L (8-16); Aspartate Amino Transferase 19 U/L (17-59); Bilirubin,Total 0.4 mg/dL (0.2-1.3); Blood Urea Nitrogen 12 mg/dL (9-20); Calcium 8.8 mg/dL (8.4-10.2); Carbon Dioxide 27 mmol/L (22-30); Chloride 101 mmol/L (98-107); Estimated CRCL calculation 62 ml/min; Estimated Glomerular Filt Rate > 60; Glucose 99 mg/dL (65-110); Magnesium 2.1 mg/dL (1.6-2.3); Sodium 131 mmol/L (137-145)
[2023-12-14] MEDS: LEVOTHYROXINE SODIUM 112 MCG TABLET PO (06:41)
--- NOTE | 2023-12-14 06:48 | WPDUROPN2 ---
Progress Note: A&P Assessment and Plan (1) H/O prostate cancer: Code(s): Z85.46 - Personal history of malignant neoplasm of prostate Status: Acute (2) Hematuria: Code(s): R31.9 - Hematuria, unspecified Status: Acute Assessment and Plan: Ongoing urinary retention which does not appear to be related to hematuria with clots. 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 Hematuria has essentially completely resolved with IV Amicar overnight I'm torn over repeating voiding trial this morning or deferring until Sunday (home with a catheter the weekend). I will discuss with patient a little later this morning, once he wakes up. Subjective Subjective Date/Time Seen: 12/14/23 06:48 Interval history: Failed voiding trial again yesterday. He had not developed significant clots and I think ongoing retention may be more a function of detrusor underactivity. Hematuria appears to have completely resolved with IV Amicar or not Review of Systems Cardiovascular: Cardiovascular: Denies chest pain, Denies lightheadedness, Denies palpitations and Denies dyspnea Respiratory: Respiratory: Denies dyspnea Gastrointestinal: Gastrointestinal: Denies diarrhea, Denies nausea and Denies vomiting Genitourinary: Genitourinary: Denies hematuria and Denies dysuria Endocrine: Endocrine: Denies palpitations Exam Const: General: no acute distress Resp: Effort & Inspection: normal respiratory effort GI: Inspection: non-distended GI Palp: No abdominal tenderness and No Guarding due to palpation present (GI) Auscultation: normal bowel sounds Urinary Catheter: Urinary Catheter: patent and draining and urine clear Objective Data Vital Signs Vital Signs: Vital Signs - 24 hr 12/13/23 09:00 12/13/23 09:45 12/13/23 13:00 Temperature 97.7 F 97.7 F Pulse Rate 70 73 Respiratory Rate 15 16 Blood Pressure 120/62 126/72 Pulse Oximetry 98 98 Oxygen Delivery Room Air 12/13/23 19:34 12/13/23 20:49 12/13/23 23:00 Temperature 98.7 F 98.5 F Pulse Rate 79 72 Respiratory Rate 18 16 Blood Pressure 101/55 L 106/60 Pulse Oximetry 98 98 99 Oxygen Delivery Room Air 12/14/23 02:54 Temperature 98.1 F Pulse Rate 73 Respiratory Rate 17 Blood Pressure 98/50 L Pulse Oximetry 98 Oxygen Delivery Intake/Output Intake/Output: Intake & Output 12/11/23 12/12/23 12/13/23 12/14/23 23:59 23:59 23:59 23:59 Intake Total 1090 1520 1410 650 Output Total 6500 3559 3725 750 [id number] -2031 -2315 -100 Meds/Results Medications: Active Medications Generic Name Dose Route Start Last Admin Trade Name Freq PRN Reason Stop Dose Admin Hydrocodone Bitart/Acetaminophen 1 tab 12/11/23 15:19 12/13/23 20:20 Hydrocodone/Acetaminophen (*Crx) 5-325 Mg Tablet PO 1 tab Q6H PRN Administration Pain Rated 8-10 Alprazolam 0.5 mg 12/13/23 09:56 12/13/23 10:45 Alprazolam (*Crx) 0.5 Mg Tablet PO 0.5 mg TID PRN Administration Anxiety Bisacodyl 10 mg 12/09/23 12:07 12/09/23 20:26 Bisacodyl 10 Mg Suppository RECTAL 10 mg QAM PRN Administration Constipation Docusate Sodium 200 mg 12/13/23 09:55 12/13/23 10:08 Docusate Sodium 100 Mg Capsule PO 200 mg Q12H PRN Administration Constipation Hyoscyamine 0.125 mg 12/10/23 14:49 12/13/23 16:09 Hyoscyamine Sulfate 0.125 Mg Tablet PO 0.125 mg Q4H PRN Administration Bladder Spasm Hyoscyamine 0.125 mg 12/13/23 09:56 12/13/23 10:46 Hyoscyamine Sulfate 0.125 Mg Tablet PO 0.125 mg Q4H PRN Administration Bladder Spasm Ibuprofen 600 mg 12/09/23 12:07 12/09/23 16:23 Ibuprofen 600 Mg Tablet PO 600 mg Q6H PRN Administration Mild Pain (1-3) or Fever Levothyroxine Sodium 112 mcg 12/09/23 06:30 12/14/23 06:41 Levothyroxine Sodium 112 Mcg Tablet PO 112 mcg DAILY@0630 ANNIE Administration Lisinopril 20 mg 12/09/23 09:00 12/13/23 09:52 Mandy
[2023-12-14 08:24] VITALS: O2SAT 95
[2023-12-14 08:45] VITALS: BP 90/58; PULSE 82; TEMP 36.4; O2SAT 100
[2023-12-14] MEDS: SODIUM CHLORIDE 1 GM TABLET PO ×3 (08:46→18:02)
[2023-12-14] MEDS: ROSUVASTATIN 10 MG TABLET 20 MG PO (08:46)
[2023-12-14] MEDS: PANTOPRAZOLE SOD SESQUIHYDRATE 20 MG TAB PO ×2 (08:47→20:54)
[2023-12-14] MEDS: TAMSULOSIN HCL 0.4 MG CAPSULE PO ×2 (11:01→18:02)
[2023-12-14] MEDS: ALPRAZolam (*CRX) 0.5 MG TABLET PO (11:05)
--- NOTE | 2023-12-14 11:20 | PM.IMPN ---
Progress Note: A&P Assessment and Plan (1) Acute urinary retention: Code(s): R33.8 - Other retention of urine Status: Acute Assessment and Plan: Recurrent issue, CBI catheter in place and Urology consulted. Bloody drainage from CBI catheter at this time. Oxybutynin ordered for bladder spasms by Urology. 12/10: Levsin works well for bladder spasms. CBI had to be restarted due to continued bleeding with clots. 12/11: Novoa draining pinkish urine. Patient to go to the operating room this afternoon for clot evacuation and possible cauterization 12/12: CBI has been clamped per Urology. Catheter is draining a dark pink colored urine only. Pt without any acute distress. Voiding trial ordered by Urology today and pt did well without difficulty. He has been cleared per Urology for discharge and Medicine service agrees. Pt. to discharge to home at this time. 12/13: Pt did not actually discharge yesterday despite the discharge being completed for reasons mentioned in interval assessment. He voided without difficulty twice after the novoa was removed and then he said he couldn't go. The catheter was replaced and he was to discharge, but the pt refused to go saying he knew he would not be able to drain urine once he got home and would have to come back to the ER. Urology saw this AM and removed catheter again. They will re-evaluate pt this afternoon. From a medical standpoint, the pt is cleared for discharge at this time. Awaiting Urology decision for further management. 12/14: Pt ended up being kept yesterday as noted in my addendum, due to the replacement of the catheter for retaining >500 ml urine and it being very bloody. Pt was given Amicar overnight and it controlled the bleeding to this AM, but the bloody urine has once again returned in the novoa. Dr. Matias has seen pt and is following and he advised the nurse that Amicar will once again be started again. (2) Hyponatremia: Code(s): E87.1 - Hypo-osmolality and hyponatremia Status: Acute Assessment and Plan: History of mild hyponatremia, on hydrochlorothiazide at home. Will hold hydrochlorothiazide. Sodium 130 today 12/09: Sodium to 128 today. Ordered sodium tabs. Unable to collect usual urine labs for hyponatremia due to CBI 12/10: Sodium to 123. Patient states he will not be able to fluid restrict. 12/11: Sodium 127, increased salt tabs to 1 g TID, suspect self correction after no longer experiencing severe bladder spasms 12/12: Improved sodium to 131 today. At the time of discharge pt will need continued correction with salt tabs for a couple of days and close re-evaluation in the next 2 days to check sodium level. Results to go to PCP. Will have pt follow up with PCP at discharge. 12/13: Stable sodium at 131. 12/14: Remains stable at 131. NS is started today as pt is hypotensive, so I suspect pt will have a rise in Sodium levels. (3) Hypotension: Code(s): I95.9 - Hypotension, unspecified Status: Acute Assessment and Plan: 12/14: Pt has become hypotensive with BP 90/58. He is symptomatic with weakness and fatigue. Lisinopril held and pt is started on NS at 100 ml/hr. Will trend Vital Signs and adjust treatment as needed. (4) Hematuria: Code(s): R31.9 - Hematuria, unspecified Status: Chronic Assessment and Plan: Recurrent issue, CBI catheter in place and Urology consulted. Bloody drainage from CBI catheter at this time. Oxybutynin ordered for bladder spasms by Urology. 12/12: See above plans. 12/13: No bleeding noted. 12/14: Pt ended up being kept yesterday as noted in my addendum, due to the replacement of the catheter for retaining >500 ml urine and it being very bloody. Pt was given Amicar overnight and it controlled the bleeding to this AM, but the bloody urine has once again returned in the novoa. Dr. Matias has seen pt and is following and he advised the nurse that Amicar will once again be started again. (5) Prostate cancer: Cod
[2023-12-14] MEDS: SODIUM CHLORIDE 0.9% IV 1,000 ML 100 ML IV CONT ×2 (13:24→23:21)
[2023-12-14 13:47] VITALS: BP 111/55; PULSE 73; RESP 18; TEMP 36.8; O2SAT 99
[2023-12-14 18:15] VITALS: BP 126/56; PULSE 77; RESP 18; TEMP 36.3; O2SAT 98
[2023-12-14] MEDS: DOCUSATE SODIUM 100 MG CAPSULE 200 MG PO (20:54)
[2023-12-14 21:15] VITALS: BP 113/66; PULSE 70; RESP 18; TEMP 36.5; O2SAT 98
[2023-12-15 00:04] VITALS: BP 130/64; PULSE 72; RESP 20; TEMP 36.4; O2SAT 98
[2023-12-15] MEDS: HYOSCYAMINE SULFATE 0.125 MG TABLET PO (00:12)
[2023-12-15 04:00] VITALS: BP 139/70; PULSE 78; RESP 20; TEMP 36.5; O2SAT 99
[2023-12-15] MEDS: IBUPROFEN 600 MG TABLET PO (05:14)
[2023-12-15] MEDS: LEVOTHYROXINE SODIUM 112 MCG TABLET PO (05:15)
[2023-12-15 05:21] LABS: Basophils Percent Auto 0.6 % (0.2-1.2); Eosinophils Absolute Auto 0.3 K/mm3 (0-0.3); Eosinophils Percent Auto 5.6 % (0-4.4); Hematocrit 25.1 % (42.0-52.0); Hemoglobin 8.1 g/dL (14.0-18.0); Immature Granulocyte Absolute 0.02 K/mm3 (0.00-0.031); Immature Granulocyte Percent A 0.4 % (0-0.5); Lymphocytes Absolute Auto 0.65 K/mm3 (0.9-3.2); Lymphocytes Percent Auto 13.5 % (18.3-44.2); Mean Corpuscular HGB Conc 32.3 g/dl (32-36); Mean Corpuscular Hemoglobin 28.2 pg (26-34); Mean Corpuscular Volume 87.5 fl (80-100); Monocytes Absolute Auto 0.6 K/mm3 (0.1-0.6); Monocytes Percent Auto 11.7 % (2.6-8.5); Neutrophils Absolute Auto 3.3 K/mm3 (1.3-6.7); Neutrophils Percent Auto 68.2 % (45.5-73.1); Platelet Count Result 295 k/mm3 (150-375); Red Blood Count 2.87 M/mm3 (4.6-6.20); Red Cell Distribution Width 16.7 % (11.5-14.5); White Blood Count 4.8 K/mm3 (4.5-10.0)
[2023-12-15 06:15] LABS: Alanine Aminotransferase 12 U/L (6-50); Albumin Level 3.2 g/dL (3.5-5.1); Alkaline Phosphatase 49 U/L (38-126); Anion Gap 5 mmol/L (8-16); Aspartate Amino Transferase 32 U/L (17-59); Bilirubin,Total 0.3 mg/dL (0.2-1.3); Blood Urea Nitrogen 12 mg/dL (9-20); Calcium 8.4 mg/dL (8.4-10.2); Carbon Dioxide 23 mmol/L (22-30); Chloride 106 mmol/L (98-107); Estimated CRCL calculation 69 ml/min; Estimated Glomerular Filt Rate > 60; Glucose 96 mg/dL (65-110); Potassium 4.2 mmol/L (3.4-5.0); Sodium 134 mmol/L (137-145)
--- NOTE | 2023-12-15 09:46 | WPDUROPN2 ---
Progress Note: A&P Assessment and Plan (1) H/O prostate cancer: Code(s): Z85.46 - Personal history of malignant neoplasm of prostate Status: Acute (2) Hematuria: Code(s): R31.9 - Hematuria, unspecified Status: Acute Assessment and Plan: Ongoing urinary retention which does not appear to be related to hematuria with clots. Hematuria has essentially completely resolved with IV Amicar overnight, urine clear pink home with novoa, consider outpt hyperbaric O2 Subjective Subjective Date/Time Seen: 12/15/23 09:46 Interval history: denies pain. NAEO. No clots. Last BM 4- 5 days ago Review of Systems Cardiovascular: Cardiovascular: Denies chest pain, Denies lightheadedness, Denies palpitations and Denies dyspnea Respiratory: Respiratory: Denies dyspnea Gastrointestinal: Gastrointestinal: Denies diarrhea, Denies nausea and Denies vomiting Genitourinary: Genitourinary: Denies hematuria and Denies dysuria Endocrine: Endocrine: Denies palpitations Exam Const: General: no acute distress Resp: Effort & Inspection: normal respiratory effort GI: Inspection: non-distended GI Palp: No abdominal tenderness and No Guarding due to palpation present (GI) Auscultation: normal bowel sounds Urinary Catheter: Urinary Catheter: patent and draining, urine clear and urine pink Objective Data Vital Signs Vital Signs: Vital Signs - 24 hr 12/14/23 13:47 12/14/23 18:15 12/14/23 21:15 Temperature 36.8 C 36.3 C L 36.5 C Pulse Rate 73 77 70 Respiratory Rate 18 18 18 Blood Pressure 111/55 L 126/56 L 113/66 Pulse Oximetry 99 98 98 Oxygen Delivery 12/15/23 00:04 12/14/23 20:48 12/15/23 04:00 Temperature 36.4 C 36.5 C Pulse Rate 72 78 Respiratory Rate 20 20 Blood Pressure 130/64 139/70 Pulse Oximetry 98 99 Oxygen Delivery Room Air Intake/Output Intake/Output: Intake & Output 12/12/23 12/13/23 12/14/23 12/15/23 23:59 23:59 23:59 23:59 Intake Total 1520 1410 3280 100 Output Total 3551 3725 2400 1650 Balance -2030 -2315 880 -1550 Meds/Results Medications: Active Medications Generic Name Dose Route Start Last Admin Trade Name Freq PRN Reason Stop Dose Admin Hydrocodone Bitart/Acetaminophen 1 tab 12/11/23 15:19 12/13/23 20:20 Hydrocodone/Acetaminophen (*Crx) 5-325 Mg Tablet PO 1 tab Q6H PRN Administration Pain Rated 8-10 Alprazolam 0.5 mg 12/13/23 09:56 12/14/23 11:05 Alprazolam (*Crx) 0.5 Mg Tablet PO 0.5 mg TID PRN Administration Anxiety Bisacodyl 10 mg 12/09/23 12:07 12/09/23 20:26 Bisacodyl 10 Mg Suppository RECTAL 10 mg QAM PRN Administration Constipation Docusate Sodium 200 mg 12/13/23 09:55 12/14/23 20:54 Docusate Sodium 100 Mg Capsule PO 200 mg Q12H PRN Administration Constipation Hyoscyamine 0.125 mg 12/10/23 14:49 12/13/23 16:09 Hyoscyamine Sulfate 0.125 Mg Tablet PO 0.125 mg Q4H PRN Administration Bladder Spasm Hyoscyamine 0.125 mg 12/13/23 09:56 12/15/23 00:12 Hyoscyamine Sulfate 0.125 Mg Tablet PO 0.125 mg Q4H PRN Administration Bladder Spasm Sodium Chloride 1,000 mls @ 100 mls/hr 12/14/23 11:20 12/14/23 23:21 Normal Saline Iv IV CONT 100 mls/hr .Q10H ANNIE Administration Ibuprofen 600 mg 12/09/23 12:07 12/15/23 05:14 Ibuprofen 600 Mg Tablet PO 600 mg Q6H PRN Administration Mild Pain (1-3) or Fever Levothyroxine Sodium 112 mcg 12/09/23 06:30 12/15/23 05:15 Levothyroxine Sodium 112 Mcg Tablet PO 112 mcg DAILY@0630 ANNIE Administration Lisinopril 20 mg 12/09/23 09:00 12/14/23 08:46 Lisinopril 20 Mg Tablet PO Not Given DAILY ANNIE Lorazepam 1 mg 12/08/23 12:51 12/13/23 00:45 Lorazepam (*Crx) 1 Mg Tablet PO 1 mg Q8H PRN Administration Anxiety Meclizine HCl 25 mg 12/08/23 12:50 Meclizine Hcl 25 Mg Tablet PO BID PRN dizziness Pantoprazole Sodium 20 mg 12/08/23 21:00 02
[2023-12-15] MEDS: ROSUVASTATIN 10 MG TABLET 20 MG PO (10:13)
[2023-12-15] MEDS: SODIUM CHLORIDE 1 GM TABLET PO ×2 (10:13→13:27)
[2023-12-15] MEDS: BISACODYL 10 MG SUPPOSITORY RECTAL (10:13)
[2023-12-15] MEDS: SODIUM CHLORIDE 0.9% IV 1,000 ML 100 ML IV CONT (10:13)
[2023-12-15] MEDS: DOCUSATE SODIUM 100 MG CAPSULE 200 MG PO (10:13)
[2023-12-15] MEDS: TAMSULOSIN HCL 0.4 MG CAPSULE PO (10:13)
[2023-12-15] MEDS: PANTOPRAZOLE SOD SESQUIHYDRATE 20 MG TAB PO (10:13)
[2023-12-15 10:31] VITALS: BP 155/74; PULSE 72; RESP 12; TEMP 36.2; O2SAT 98
--- NOTE | 2023-12-15 12:54 | PM.DS ---
DS: Admitting Diagnosis Discharge Date 12/15/23 Admitting Diagnosis Urinary Retention Hyponatremia Chronic Hematuria Prostate Cancer Hypertension Anxiety DS: Discharge Diagnosis Discharge Diagnosis (1) Acute urinary retention: Code(s): R33.8 - Other retention of urine Status: Acute Assessment and Plan: Recurrent issue, CBI catheter in place and Urology consulted. Bloody drainage from CBI catheter at this time. Oxybutynin ordered for bladder spasms by Urology. 12/10: Levsin works well for bladder spasms. CBI had to be restarted due to continued bleeding with clots. 12/11: Novoa draining pinkish urine. Patient to go to the operating room this afternoon for clot evacuation and possible cauterization 12/12: CBI has been clamped per Urology. Catheter is draining a dark pink colored urine only. Pt without any acute distress. Voiding trial ordered by Urology today and pt did well without difficulty. He has been cleared per Urology for discharge and Medicine service agrees. Pt. to discharge to home at this time. 12/13: Pt did not actually discharge yesterday despite the discharge being completed for reasons mentioned in interval assessment. He voided without difficulty twice after the novoa was removed and then he said he couldn't go. The catheter was replaced and he was to discharge, but the pt refused to go saying he knew he would not be able to drain urine once he got home and would have to come back to the ER. Urology saw this AM and removed catheter again. They will re-evaluate pt this afternoon. From a medical standpoint, the pt is cleared for discharge at this time. Awaiting Urology decision for further management. 12/14: Pt ended up being kept yesterday as noted in my addendum, due to the replacement of the catheter for retaining >500 ml urine and it being very bloody. Pt was given Amicar overnight and it controlled the bleeding to this AM, but the bloody urine has once again returned in the novoa. Dr. Matias has seen pt and is following and he advised the nurse that Amicar will once again be started again. 12/15: Overnight the pt received more Amicar and this AM was evaluated by Dr. Martinez. His urine has turned to pink and clear without clots. Dr. Martinez advises to return home with the catheter currently and follow up this week. They are going to consider outpatient hyperbaric O2. Pt reports that he has had no further bladder spasms overnight. (2) Hyponatremia: Code(s): E87.1 - Hypo-osmolality and hyponatremia Status: Acute Assessment and Plan: History of mild hyponatremia, on hydrochlorothiazide at home. Will hold hydrochlorothiazide. Sodium 130 today 12/09: Sodium to 128 today. Ordered sodium tabs. Unable to collect usual urine labs for hyponatremia due to CBI 12/10: Sodium to 123. Patient states he will not be able to fluid restrict. 12/11: Sodium 127, increased salt tabs to 1 g TID, suspect self correction after no longer experiencing severe bladder spasms 12/12: Improved sodium to 131 today. At the time of discharge pt will need continued correction with salt tabs for a couple of days and close re-evaluation in the next 2 days to check sodium level. Results to go to PCP. Will have pt follow up with PCP at discharge. 12/13: Stable sodium at 131. 12/14: Remains stable at 131. NS is started today as pt is hypotensive, so I suspect pt will have a rise in Sodium levels. 12/15: Sodium stable at 134. Will resume home meds upon discharge with referral to PCP to closely monitor Sodium levels. (3) Hypotension: Code(s): I95.9 - Hypotension, unspecified Status: Resolved Assessment and Plan: 12/14: Pt has become hypotensive with BP 90/58. He is symptomatic with weakness and fatigue. Lisinopril held and pt is started on NS at 100 ml/hr. Will trend Vital Signs and adjust treatment as needed. 12/15: Resolved with fluid infusion. (4) Hematuria: Code(s): R31.9 - Hematuria, unspecified Status: Chronic
[2023-12-15 14:00] VITALS: BP 138/69; PULSE 76; RESP 16; TEMP 36.8; O2SAT 100
== END 2023-12-15 16:30 | disposition home or self-care (01) | DRG 663 ==
LOC: ANHED 05:51 → ANH2MED 08:11
PROVIDERS: Nurse Practitioner; Urology; Admitting Provider Student in an Organized Health Care Education/Training Program; Emergency Provider Emergency Medicine; PCP Family Medicine; Visit Provider Nurse Practitioner Adult Health
PROC: 0TCB8ZZ Extirpation of Matter from Bladder, Via Natural or Artificial Opening Endoscopic (ICD-10-PCS; CPT 52001; principal; 2023-12-11 16:00)
DX: N32.89 Other specified disorders of bladder (principal); E87.1 Hypo-osmolality and hyponatremia; R33.8 Other retention of urine; R31.9 Hematuria, unspecified; F06.4 Anxiety disorder due to known physiological condition; I10 Essential (primary) hypertension; D63.1 Anemia in chronic kidney disease; K21.9 Gastro-esophageal reflux disease without esophagitis; E78.5 Hyperlipidemia, unspecified; E03.9 Hypothyroidism, unspecified; I95.9 Hypotension, unspecified; E78.00 Pure hypercholesterolemia, unspecified; Z85.46 Personal history of malignant neoplasm of prostate; Z85.51 Personal history of malignant neoplasm of bladder; Z85.810 Personal history of malignant neoplasm of tongue
CPT/HCPCS: 36415; 76857; 80053; 81001; 83735; 84100; 84295; 84443; 85025; 85610; 85730; 87086; 99285; A9270; C1757; G0378; J1100; J2405; J2704; J3010; J7030; J7060; J7120

== ENCOUNTER 2023-12-16 10:41 | Emergency (ER) | payer MEDICARE, SELFPAY ==
[2023-12-16 10:50] VITALS: BP 148/78; PULSE 98; RESP 16; TEMP 36.8; O2SAT 100
--- NOTE | 2023-12-16 11:20 | ED.GENADULT ---
HPI - General Adult General Chief complaint: Urogenital-Male Stated complaint: my catheter is plugged Time Seen by Provider: 12/16/23 11:07 History of Present Illness HPI narrative: 73-year-old male presents to the emergency department for evaluation a Lindsey catheter issue. Patient was recently admitted for hematuria and did have CBI done while he was here, patient's symptoms improved, patient was evaluated by urology and patient was discharged to home with plan for outpatient follow-up. Patient's Lindsey catheter was exchanged prior to discharge. Patient states he has not had any urinary output from the Lindsey catheter since last night. Patient presents complaining of urinary retention and bladder spasm. Patient was distressed upon arrival due to the urinary retention. Related Data Home Medications Medication Instructions Recorded Confirmed tamsulosin 0.4 mg capsule 0.4 mg PO DAILY 10/24/23 12/08/23 Allergies Allergy/AdvReac Type Severity Reaction Status Date / Time No Known Allergies Allergy Unknown Verified 12/16/23 18:41 Review of Systems Review of Systems: All systems reviewed & are unremarkable except as noted in HPI and below PMFSH Past Medical History Medical History (Updated 12/16/23 @ 14:15 by Contreras Gonzalez MD) Adenomatous colon polyp Anemia Anemia in chronic kidney disease Anxiety disorder due to medical condition BMI 25.0-25.9,adult BMI 26.0-26.9,adult BMI 27.0-27.9,adult BMI 28.0-28.9,adult BMI 29.0-29.9,adult 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 Dizziness GERD (gastroesophageal reflux disease) H/O prostate cancer radiation treatment several 3-4 years ago Hematochezia Hx of malignant neoplasm of prostate Hx of tongue cancer radiation Hyperlipidemia Hypertension Hyponatremia Hypotension Hypothyroid Hypothyroidism Osteomyelitis of mandible Prostate cancer Pure hypercholesterolemia Wrist pain Surgical History Surgical History H/O colonoscopy with polypectomy H/O cystoscopy History of mandibular surgery S/P colonoscopy S/P hernia repair Family History Family History Father Diabetes mellitus Hypertension Acute angina Coronary artery disease Heart disease Mother Congestive heart failure Diabetes mellitus Sibling Myocardial infarction Heart disease Sibling No problems noted. Social History Social History Social History: He is with 1 child. 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 Lifelong nonsmoker. His is the durable power defense attorney for healthcare. Code status full code Smoking status: Never smoker Second hand tobacco smoke exposure: No Alcohol intake: current Drinks per week: 20 Alcohol use details: 3 BEERS/DAY Substance use: never Substance use type: does not use Do You Feel Safe in your Home?: Yes Lack of Transportation: No Lack of Food: Never True Current Housing: I Have Housing Concerned About Future Housing: No Difficulty Paying Gas/Electric Bills: No Difficulty Paying for Meds: No Currently Unemployed: No Education: Master's Degree or Higher Difficulty w/ Childcare or Family Care: No Living arrangements: with family Occupation/Education: retired Additional occupation/education comments: [employer] Gender identity (if verbalized by the patient): Male Spiritual care concerns: No Exam Narrative: APPEARANCE: Uncomfortable HEAD: normocephalic, atraumatic. EYES: PERRLA/EOMI, conjunctivae clear. NOSE: Normal no drainage EARS:TMS clear with good light reflex. THROAT: Pharynx clear, no exudate. NECK: Supple. No adenopathy, no masses. RESPIRATORY: Airway patent, respirations nonlabored. Clear to auscultation bilaterally, no rales, rhonchi, wheezing.
[2023-12-16] MEDS: HYDROcodone/acetaminophen (*CRX) 5-325 MG TABLET 1 TAB PO (11:41)
[2023-12-16 13:12] LABS: Appearance Urine Turbid (Clear); Bilirubin Urine 1+ (Negative); Blood Urine 3+ (Negative); Color Urine Red (Yellow); Glucose Urine UA Negative (Negative); Ketones Urine Negative (Negative); Leukocyte Esterase Ur 2+ LEU/UL (Negative); Nitrate Urine Positive (Negative); Protein Urine 2+ mg/dL (Negative); Specific Grav Ur 1.013 (1.001-1.035); Urobilinogen Urine 0.2 mg/dL (<2.0)
[2023-12-16 13:26] LABS: Need Manual Microscopic Reviewed; Non Pathogenic Casts 0-2; RBC Urine >100 /hpf (0-2); Squamous Epithelial Cell Urine None seen /hpf (Few); WBC Urine 21-50 /hpf
[2023-12-16 13:27] LABS: Bacteria Urine 1+ /hpf
[2023-12-16 13:28] LABS: Add Urine Microscopic? YES
[2023-12-16] MEDS: CEPHALEXIN 500 MG CAPSULE PO (14:34)
[2023-12-16 14:53] VITALS: BP 133/79; PULSE 80; RESP 18; TEMP 36.7; O2SAT 100
--- NOTE | 2023-12-16 19:00 | ED.GENADULT ---
HPI - General Adult General Chief complaint: Urogenital-Male Stated complaint: my catheter is plugged Time Seen by Provider: 12/16/23 11:07 History of Present Illness HPI narrative: 73-year-old male with history of urinary retention, hematuria previously requiring CBI. Patient was seen in the emergency department earlier today for bladder spasm and Lindsey catheter issue. At that time patient did have his Lindsey catheter exchanged and patient did drain his bladder and his symptoms were improved. Case was discussed with Urology they are comfortable with the patient continued have outpatient follow-up as scheduled. After getting home patient was anxious about being home, patient did develop a bladder spasm and patient presented to the emergency department for further evaluation. Patient states when he was at home he had the bladder spasm and urine was passing around the Lindsey not just through the Lindsey. Upon arrival emergency department patient is resting comfortably has no current spasm and Lindsey catheter is functioning properly. Related Data Home Medications Medication Instructions Recorded Confirmed tamsulosin 0.4 mg capsule 0.4 mg PO HS 10/24/23 12/16/23 omeprazole 20 mg capsule,delayed 20 mg PO DAILY 12/16/23 12/16/23 release Allergies Allergy/AdvReac Type Severity Reaction Status Date / Time No Known Allergies Allergy Unknown Verified 12/16/23 18:41 Review of Systems Review of Systems: All systems reviewed & are unremarkable except as noted in HPI and below PMFSH Past Medical History Medical History (Updated 12/16/23 @ 14:15 by Contreras Gonzalez MD) Adenomatous colon polyp Anemia Anemia in chronic kidney disease Anxiety disorder due to medical condition BMI 25.0-25.9,adult BMI 26.0-26.9,adult BMI 27.0-27.9,adult BMI 28.0-28.9,adult BMI 29.0-29.9,adult 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 Dizziness GERD (gastroesophageal reflux disease) H/O prostate cancer radiation treatment several 3-4 years ago Hematochezia Hx of malignant neoplasm of prostate Hx of tongue cancer radiation Hyperlipidemia Hypertension Hyponatremia Hypotension Hypothyroid Hypothyroidism Osteomyelitis of mandible Prostate cancer Pure hypercholesterolemia Wrist pain Surgical History Surgical History H/O colonoscopy with polypectomy H/O cystoscopy History of mandibular surgery S/P colonoscopy S/P hernia repair Family History Family History Father Diabetes mellitus Hypertension Acute angina Coronary artery disease Heart disease Mother Congestive heart failure Diabetes mellitus Sibling Myocardial infarction Heart disease Sibling No problems noted. Social History Social History Social History: He is with 1 child. 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 Lifelong nonsmoker. 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 Code status full code Smoking status: Never smoker Second hand tobacco smoke exposure: No Alcohol intake: current Drinks per week: 20 Alcohol use details: 3 BEERS/DAY Substance use: never Substance use type: does not use Do You Feel Safe in your Home?: Yes Lack of Transportation: No Lack of Food: Never True Current Housing: I Have Housing Concerned About Future Housing: No Difficulty Paying Gas/Electric Bills: No Difficulty Paying for Meds: No Currently Unemployed: No Education: Master's Degree or Higher Difficulty w/ Childcare or Family Care: No Living arrangements: with family Occupation/Education: retired Additional occupation/education comments: [employer] Gender identity (if verbalized by the patient): Male Spiritual care concerns: No Exam Narrative: APPEARANCE: Well ap
== END 2023-12-16 14:55 | disposition home or self-care (01) ==
PROVIDERS: Emergency Provider Emergency Medicine; PCP Family Medicine
DX: T83.098A Other mechanical complication of other urinary catheter, initial encounter (principal); N39.0 Urinary tract infection, site not specified; I12.9 Hypertensive chronic kidney disease with stage 1 through stage 4 chronic kidney disease, or unspecified chronic kidney disease; N18.9 Chronic kidney disease, unspecified; E03.9 Hypothyroidism, unspecified; D63.1 Anemia in chronic kidney disease; E78.00 Pure hypercholesterolemia, unspecified; K21.9 Gastro-esophageal reflux disease without esophagitis; Z85.810 Personal history of malignant neoplasm of tongue; Z85.46 Personal history of malignant neoplasm of prostate; Z92.3 Personal history of irradiation; Z86.010 Personal history of colon polyps; Y84.6 Urinary catheterization as the cause of abnormal reaction of the patient, or of later complication, without mention of misadventure at the time of the procedure
CPT/HCPCS: 51700; 81001; 87086; 99283; A9270

== ENCOUNTER 2023-12-16 15:30 | Inpatient (IN) | payer MEDICARE, SELFPAY ==
--- NOTE | ~2023-12-16 | XR_ITS ---
EXAMINATION: XR chest 1V portable INDICATION: Fever and shortness of breath TECHNIQUE: Portable AP chest at 1524 hours COMPARISON: None available FINDINGS: There is scarring of the lung apices. There are minimal airspace opacities of the left lung zone. No pleural effusion or pneumothorax. The cardiomediastinal silhouette is normal. IMPRESSION: 1. Minimal left basilar airspace opacity, consistent with atelectasis versus pneumonia. Reviewed, dictated and finalized at location B. L RIGHTS ATTORNEY IMPRESSION: 1. Minimal left basilar airspace opacity, consistent with atelectasis versus pn eumonia.
--- NOTE | ~2023-12-16 | US_ITS ---
EXAMINATION: US retroperitoneal comp DATE: 12/29/2023 11:38 INDICATION: Hydronephrosis. TECHNIQUE: Multiple ultrasound grayscale images of the kidneys were obtained. COMPARISON: Ultrasound 08/25/2023, CT abdomen and pelvis 06/07/23, 10/25/2020 FINDINGS: The right kidney measures 11.9 x 4.0 x 5.1 cm. The left kidney measures 11.1 x 7.5 x 3.4 cm. The kidn eys demonstrate normal parenchymal echogenicity. There is a 6.3 cm hemorrhagic cyst in left kidney. T here is no hydronephrosis. The bladder is normal. IMPRESSION: 1. Normal kidney sizes. No hydronephrosis. Reviewed, dictated and finalized at location E. ER BOARD OPERATOR
[2023-12-16 16:46] VITALS: BP 131/70; PULSE 90; RESP 19; O2SAT 100
--- NOTE | 2023-12-16 17:06 | ED.GENADULT ---
HPI - General Adult General Chief complaint: Urogenital-Male Stated complaint: catheter problems Time Seen by Provider: 12/16/23 16:24 History of Present Illness HPI narrative: 73-year-old male present to the emergency department for evaluation of worsening bladder spasm and concern of a Lindsey catheter now initiating Related Data Home Medications Medication Instructions Recorded Confirmed tamsulosin 0.4 mg capsule 0.4 mg PO DAILY 10/24/23 12/08/23 Allergies Allergy/AdvReac Type Severity Reaction Status Date / Time No Known Allergies Allergy Unknown Verified 12/11/23 12:21 [facility] Past Medical History Medical History (Updated 12/16/23 @ 14:15 by Contreras Gonzalez MD) Adenomatous colon polyp Anemia Anemia in chronic kidney disease Anxiety disorder due to medical condition BMI 25.0-25.9,adult BMI 26.0-26.9,adult BMI 27.0-27.9,adult BMI 28.0-28.9,adult BMI 29.0-29.9,adult 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 Dizziness GERD (gastroesophageal reflux disease) H/O prostate cancer radiation treatment several 3-4 years ago Hematochezia Hx of malignant neoplasm of prostate Hx of tongue cancer radiation Hyperlipidemia Hypertension Hyponatremia Hypotension Hypothyroid Hypothyroidism Osteomyelitis of mandible Prostate cancer Pure hypercholesterolemia Wrist pain Surgical History Surgical History H/O colonoscopy with polypectomy H/O cystoscopy History of mandibular surgery S/P colonoscopy S/P hernia repair Family History Family History Father Diabetes mellitus Hypertension Acute angina Coronary artery disease Heart disease Mother Congestive heart failure Diabetes mellitus Sibling Myocardial infarction Heart disease Sibling No problems noted. Social History Social History Social History: He is with 1 child. 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 Lifelong nonsmoker. 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 Code status full code Smoking status: Never smoker Second hand tobacco smoke exposure: No Alcohol intake: current Drinks per week: 20 Alcohol use details: 3 BEERS/DAY Substance use: never Substance use type: does not use Do You Feel Safe in your Home?: Yes Lack of Transportation: No Lack of Food: Never True Current Housing: I Have Housing Concerned About Future Housing: No Difficulty Paying Gas/Electric Bills: No Difficulty Paying for Meds: No Currently Unemployed: No Education: Master's Degree or Higher Difficulty w/ Childcare or Family Care: No Living arrangements: with family Occupation/Education: retired Additional occupation/education comments: [employer] Gender identity (if verbalized by the patient): Male Spiritual care concerns: No Course Vital Signs Vital signs: Vital Signs Pulse Rate 90 12/16/23 16:46 Respiratory Rate 19 12/16/23 16:46 Blood Pressure 131/70 12/16/23 16:46 Pulse Oximetry 100 12/16/23 16:46 Pulse Rate 90 12/16/23 16:46 Respiratory Rate 19 12/16/23 16:46 Blood Pressure 131/70 12/16/23 16:46 Pulse Oximetry 100 12/16/23 16:46 Medical Decision Making Vital Signs Vital Signs: Vital Signs Pulse Rate 90 12/16/23 16:46 Respiratory Rate 19 12/16/23 16:46 Blood Pressure 131/70 12/16/23 16:46 Pulse Oximetry 100 12/16/23 16:46 Pulse Rate 90 12/16/23 16:46 Respiratory Rate 19 12/16/23 16:46 Blood Pressure 131/70 12/16/23 16:46 Pulse Oximetry 100 12/16/23 16:46 Lab Data Labs: Urine Characteristics Cloudy Discharge Plan Discharge Prescriptions: No Action tamsulosin 0.4 mg capsule 0.4 mg PO DA
[2023-12-16 17:46] VITALS: BP 127/68; PULSE 77; RESP 17; O2SAT 99
--- NOTE | 2023-12-16 18:28 | PM.IMHP ---
H&P: HPI History of Present Illness Date/Time: 12/16/23 18:45 Chief Complaint: Problems with Lindsey catheter. Narrative: This is a 73-year-old male with history of prostate cancer status post radiation several years ago, non muscle invasive bladder carcinoma status post TURBT in August 2023, hypertension, hyperlipidemia, and hypothyroidism presented to the emergency department for evaluation of problems with his Lindsey catheter. The patient provides the following history. He has been hospitalized multiple times with hematuria since April 2023 with his most recent admission being just last week. In fact he was discharged home yesterday after being admitted with acute urinary retention and gross hematuria. Last week he underwent cystoscopy with clot evacuation and cauterization of the bladder and prostatic urethra. He was on CBI for couple of days and was discharged home though he reports having intermittent pink tinged urine. This morning he noticed that he had minimal if any urine output from the night before and he was seen in the emergency department for urinary retention severe bladder spasms. His Lindsey catheter was exchanged, draining without issues, and he was discharged home. Not long after getting home he once again developed severe spasms in his bladder and reports passing blood and urine around the Lindsey catheter and he returned. He is being admitted in this setting for close monitoring and neurology consultation. He denies fever, chills, sweats, nausea, and vomiting. Review of Systems Review of Systems: Twelve systems were reviewed and are negative except for as per HPI. [facility] Past Medical History Medical History (Updated 12/16/23 @ 22:35 by Samantha Mercado PA-C) Adenomatous colon polyp Anemia in chronic kidney disease Anxiety disorder due to medical condition Bladder cancer (08/2023) Noninvasive low-grade papillary urothelial carcinoma. Bulbous urethral stricture Gastroesophageal reflux disease Hyperlipidemia Hypertension Hypothyroidism Osteomyelitis of mandible Prostate cancer Status post radiation. Pure hypercholesterolemia Tongue cancer Status post radiation. Surgical History Surgical History (Updated 12/16/23 @ 22:32 by Samantha Mercado PA-C) History of colonoscopy with polypectomy History of cystoscopy History of hernia repair History of mandibular surgery History of transurethral resection of bladder tumor (TURBT) Family History Family History Father Diabetes mellitus Hypertension Acute angina Coronary artery disease Heart disease Mother Congestive heart failure Diabetes mellitus Sibling Myocardial infarction Heart disease Sibling No problems noted. Social History Social History (Updated 12/16/23 @ 22:32 by Samantha Mercado PA-C) Social History: Surrogate medical decision maker: Babita Schreiber, spouse. Code status: Full code. Smoking status: Never smoker Second hand tobacco smoke exposure: No Alcohol intake: current Drinks per week: 20 Alcohol use details: 3 BEERS/DAY Substance use: never Substance use type: does not use Do You Feel Safe in your Home?: Yes Lack of Transportation: No Lack of Food: Never True Current Housing: I Have Housing Concerned About Future Housing: Decline to Answer Difficulty Paying Gas/Electric Bills: Decline to Answer Difficulty Paying for Meds: Decline to Answer Currently Unemployed: Decline to Answer Education: Master's Degree or Higher Difficulty w/ Childcare or Family Care: No Living arrangements: with family Additional living arrangements comments: Lives with spouse in [place]. They have 1 child. Occupation/Education: retired Additional occupation/education comments: [employer]. Spiritual care concerns: No Meds Home Medications and Allergies Home Medications Medication Instruction
--- NOTE | 2023-12-16 18:35 | PC.NURSE ---
This patient, Angel Rojas, was admitted to [facility] Room 306-02. Patient/family oriented to hospital policies and general routines including ID bracelet, bed and alarms, visiting hours, pain management, procedures, bathroom and other care routines, personal items, smoking policy, room service/diet, and visiting hours. Information on how to activate the Rapid Response Team has been discussed. Patient/Family are encouraged to report perceived risks to care and to ask questions if they do not understand what they are told or what they should do.
[2023-12-16 18:47] VITALS: BMI 26.2
--- NOTE | 2023-12-16 19:05 | ER_ITS ---
This report was moved to the correct visit on 01/04/2024. The original report was signed by Contreras Gonzalez MD on 12/16/23 2161. HPI - General Adult General Chief complaint: Urogenital-Male Stated complaint: my catheter is plugged Time Seen by Provider: 12/16/23 11:07 History of Present Illness HPI narrative: 73-year-old male with history of urinary retention, hematuria previously requiring CBI. Patient was seen in the emergency department earlier today for bladder spasm and Lindsey catheter issue. At that time patient did have his Lindsey catheter exchanged and patient did drain his bladder and his symptoms were improved. Case was discussed with Urology they are comfortable with the patient continued have outpatient follow-up as scheduled. After getting home patient was anxious about being home, patient did develop a bladder spasm and patient presented to the emergency department for further evaluation. Patient states when he was at home he had the bladder spasm and urine was passing around the Lindsey not just through the Lindsey. Upon arrival emergency department patient is resting comfortably has no current spasm and Lindsey catheter is functioning properly. Related Data Home Medications Medication Instructions Recorded Confirmed tamsulosin 0.4 mg capsule 0.4 mg PO HS 10/24/23 12/16/23 omeprazole 20 mg capsule,delayed 20 mg PO DAILY 12/16/23 12/16/23 release Allergies Allergy/AdvReac Type Severity Reaction Status Date / Time No Known Allergies Allergy Unknown Verified 12/16/23 18:41 Review of Systems Review of Systems: All systems reviewed & are unremarkable except as noted in HPI and below PMFSH Past Medical History Medical History (Updated 12/16/23 @ 14:15 by Contreras Gonzalez MD) Adenomatous colon polyp Anemia Anemia in chronic kidney disease Anxiety disorder due to medical condition BMI 25.0-25.9,adult BMI 26.0-26.9,adult BMI 27.0-27.9,adult BMI 28.0-28.9,adult BMI 29.0-29.9,adult 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 Dizziness GERD (gastroesophageal reflux disease) H/O prostate cancer radiation treatment several 3-4 years ago Hematochezia Hx of malignant neoplasm of prostate Hx of tongue cancer radiation Hyperlipidemia Hypertension Hyponatremia Hypotension Hypothyroid Hypothyroidism Osteomyelitis of mandible Prostate cancer Pure hypercholesterolemia Wrist pain Surgical History Surgical History H/O colonoscopy with polypectomy H/O cystoscopy History of mandibular surgery S/P colonoscopy S/P hernia repair Family History Family History Father Diabetes mellitus Hypertension Acute angina Coronary artery disease Heart disease Mother Congestive heart failure Diabetes mellitus Sibling Myocardial infarction Heart disease Sibling No problems noted. Social History Social History Social History: He is with 1 child. 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 Lifelong nonsmoker. 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 Code status full code Smoking status: Never smoker Second hand tobacco smoke exposure: No Alcohol intake: current Drinks per week: 20 Alcohol use details: 3 BEERS/DAY Substance use: never Substance use type: does not use Do You Feel Safe in your Home?: Yes Lack of Transportation: No Lack of Food: N
[2023-12-16 19:18] VITALS: BP 132/67; PULSE 75; RESP 16; TEMP 37.2; O2SAT 100
[2023-12-16] MEDS: ALPRAZolam (*CRX) 0.5 MG TABLET PO (19:58)
[2023-12-16] MEDS: HYDROcodone/acetaminophen (*CRX) 5-325 MG TABLET 1 TAB PO (21:58)
[2023-12-16] MEDS: oxyBUTYnin CHLORIDE 5 MG TABLET PO (21:58)
[2023-12-16 22:00] VITALS: BP 137/65; PULSE 80; RESP 20; TEMP 36.8; O2SAT 100
[2023-12-16 22:57] LABS: Hematocrit 23.4 % (42.0-52.0); Hemoglobin 7.5 g/dL (14.0-18.0)
[2023-12-16] MEDS: TAMSULOSIN HCL 0.4 MG CAPSULE PO (23:18)
[2023-12-16] MEDS: CEPHALEXIN 500 MG CAPSULE PO (23:18)
[2023-12-17] MEDS: HYOSCYAMINE SULFATE 0.125 MG TABLET PO ×5 (02:22→21:38)
[2023-12-17] MEDS: WATER FOR IRRIGATION, STERILE 1,000 ML BOTTLE 1000 ML (05:23)
[2023-12-17] MEDS: LEVOTHYROXINE SODIUM 112 MCG TABLET PO (05:28)
[2023-12-17] MEDS: CEPHALEXIN 500 MG CAPSULE PO ×3 (05:28→20:50)
[2023-12-17 06:00] VITALS: BP 126/65; PULSE 79; RESP 20; TEMP 36.8; O2SAT 100
[2023-12-17] MEDS: ROSUVASTATIN 10 MG TABLET 20 MG PO (08:43)
[2023-12-17] MEDS: PANTOPRAZOLE 40 MG TABLET PO (08:43)
[2023-12-17] MEDS: lisinopriL 20 MG TABLET PO (08:43)
[2023-12-17] MEDS: MECLIZINE HCL 25 MG TABLET PO (08:43)
[2023-12-17] MEDS: hydroCHLOROthiazide 6.25 MG TABLET 12.5 MG PO (08:46)
--- NOTE | 2023-12-17 09:48 | WPDURCON ---
Assessment and Plan Assessment and plan (1) Hematuria: Qualifiers: Hematuria type: unspecified type Qualified Code(s): R31.9 - Hematuria, unspecified Code(s): R31.9 - Hematuria, unspecified Status: Acute Assessment and Plan: Recurrent gross hematuria S/p cysto, clot evac, cauterization of bladder and prostatic urethra 12/11/23 Continue CBI, titrate to keep urine clear Monitor H&H NPO at midnight in case repeat intervention is required. (2) Acute urinary retention: Code(s): R33.8 - Other retention of urine Status: Acute Assessment and Plan: Continue 3 way novoa catheter (3) Abnormal urinalysis: Code(s): R82.90 - Unspecified abnormal findings in urine Status: Acute Assessment and Plan: Continue antibiotics while awaiting urine culture (4) H/O prostate cancer: Code(s): Z85.46 - Personal history of malignant neoplasm of prostate Status: Acute Assessment and Plan: S/p IMRT 2018 Urology Consult Note HPI Date Seen: 12/17/23 Requesting Physician: Yony Luna MD Primary Care Provider: Les Mason MD Consult Narrative Narrative: Angel Rojas is a 73 year old male with a history of prostate cancer status radiation bladder cancer status post TURBT in 08/2023, and recent hospital admission for gross hematuria status post cystoscopy, clot evacuation, cauterization of bladder and prostatic urethra on 12/11/2023. He developed urinary retention following this was discharged with a novoa catheter in place on 12/15/23. On 12/16/23 he presented to the emergency department on two separate occasions for bladder spasms and issues with Novoa catheter drainage. On his first trip to the ER, his novoa catheter was removed and replaced with a 3-way catheter. Urine cleared and he was discharged home but returned shortly after due to spasms and gross hematuria. He was then admitted and started on CBI. His Hgb is stable. His WBC is within normal limits. UA was grossly abnormal and a urine culture is pending. At the time of my evaluation, his urine is pinkish red on moderate CBI. His spasms have resolved and he is feeling comfortable. Review of Systems Review of Systems: All systems reviewed & are unremarkable except as noted in HPI and below PMFSH Past Medical History Medical History (Updated 12/17/23 @ 00:00 by Abbey Bridges) Adenomatous colon polyp Anemia in chronic kidney disease Anxiety disorder due to medical condition Bladder cancer (08/2023) Noninvasive low-grade papillary urothelial carcinoma. Bulbous urethral stricture Gastroesophageal reflux disease Hyperlipidemia Hypertension Hypothyroidism Osteomyelitis of mandible Prostate cancer Status post radiation. Pure hypercholesterolemia Tongue cancer Status post radiation. Surgical History Surgical History (Updated 12/16/23 @ 22:32 by Samantha Mercado PA-C) History of colonoscopy with polypectomy History of cystoscopy History of hernia repair History of mandibular surgery History of transurethral resection of bladder tumor (TURBT) Family History Family History Father Diabetes mellitus Hypertension Acute angina Coronary artery disease Heart disease Mother Congestive heart failure Diabetes mellitus Sibling Myocardial infarction Heart disease Sibling No problems noted. Social History Social History (Updated 12/16/23 @ 22:32 by Samantha Mercado PA-C) Social History: Surrogate medical decision maker: Babita Schreiber, spouse. Code status: Full code. Smoking status: Never smoker Second hand tobacco smoke exposure: No Alcohol intake: current Drinks per week: 20 Alcohol use details: 3 BEERS/DAY Substance use: never Substance use type: does not use Do You Feel Safe in your Home?: Yes Lack of Transportation: No Lack of Claritza
[2023-12-17 10:13] VITALS: O2SAT 96
[2023-12-17 13:39] LABS: Basophils Absolute Auto 0.1 K/mm3 (0.0-0.1); Basophils Percent Auto 0.7 % (0.2-1.2); Eosinophils Absolute Auto 0.3 K/mm3 (0-0.3); Eosinophils Percent Auto 4.5 % (0-4.4); Hemoglobin 8.8 g/dL (14.0-18.0); Immature Granulocyte Absolute 0.02 K/mm3 (0.00-0.031); Immature Granulocyte Percent A 0.3 % (0-0.5); Lymphocytes Absolute Auto 0.78 K/mm3 (0.9-3.2); Lymphocytes Percent Auto 10.7 % (18.3-44.2); Mean Corpuscular HGB Conc 32.6 g/dl (32-36); Mean Corpuscular Hemoglobin 27.8 pg (26-34); Mean Corpuscular Volume 85.4 fl (80-100); Mean Platelet Volume 8.3 fl (7.4-10.4); Monocytes Absolute Auto 0.9 K/mm3 (0.1-0.6); Monocytes Percent Auto 11.6 % (2.6-8.5); Neutrophils Absolute Auto 5.3 K/mm3 (1.3-6.7); Neutrophils Percent Auto 72.2 % (45.5-73.1); Platelet Count Result 294 k/mm3 (150-375); Red Blood Count 3.16 M/mm3 (4.6-6.20); Red Cell Distribution Width 16.4 % (11.5-14.5); White Blood Count 7.3 K/mm3 (4.5-10.0)
[2023-12-17 13:51] LABS: Anion Gap 8 mmol/L (8-16); Blood Urea Nitrogen 11 mg/dL (9-20); Calcium 9.2 mg/dL (8.4-10.2); Carbon Dioxide 25 mmol/L (22-30); Chloride 102 mmol/L (98-107); Estimated CRCL calculation 69 ml/min; Estimated Glomerular Filt Rate > 60; Glucose 101 mg/dL (65-110); Potassium 3.4 mmol/L (3.4-5.0); Sodium 135 mmol/L (137-145)
[2023-12-17 14:00] VITALS: BP 121/68; RESP 20; TEMP 36.4; O2SAT 98
[2023-12-17] MEDS: oxyBUTYnin CHLORIDE 5 MG TABLET PO (16:08)
--- NOTE | 2023-12-17 16:43 | PM.IMPN ---
Progress Note: A&P Assessment and Plan (1) Abnormal urinalysis: Code(s): R82.90 - Unspecified abnormal findings in urine Status: Acute (2) Chronic anemia: Code(s): D64.9 - Anemia, unspecified Status: Acute (3) H/O prostate cancer: Code(s): Z85.46 - Personal history of malignant neoplasm of prostate Status: Acute (4) Hematuria: Qualifiers: Hematuria type: unspecified type Qualified Code(s): R31.9 - Hematuria, unspecified Code(s): R31.9 - Hematuria, unspecified Status: Acute (5) Acute urinary retention: Code(s): R33.8 - Other retention of urine Status: Acute Plan per Samantha Mercado NP: This is a 73-year-old male with history of prostate cancer status post radiation several years ago, non muscle invasive bladder carcinoma status post TURBT in August 2023, hypertension, hyperlipidemia, and hypothyroidism presented to the emergency department for evaluation of problems with his Lindsey catheter. The patient provides the following history. He has been hospitalized multiple times with hematuria since April 2023 with his most recent admission being just last week. In fact he was discharged home yesterday after being admitted with acute urinary retention and gross hematuria. Last week he underwent cystoscopy with clot evacuation and cauterization of the bladder and prostatic urethra. He was on CBI for couple of days and was discharged home though he reports having intermittent pink tinged urine. This morning he noticed that he had minimal if any urine output from the night before and he was seen in the emergency department for urinary retention severe bladder spasms. His Lindsey catheter was exchanged, draining without issues, and he was discharged home. Not long after getting home he once again developed severe spasms in his bladder and reports passing blood and urine around the Lindsey catheter and he returned. He is being admitted in this setting for close monitoring and neurology consultation. He denies fever, chills, sweats, nausea, and vomiting. He has recurrent gross hematuria status post cysto with clot evacuation and cauterization of bladder and prostatic urethra and 12/11/2023. Continue CBI, urology monitoring. NPO midnight. Monitor H&H. FEN: Saline lock IV GI prophylaxis: Not indicated DVT prophylaxis: SCDs Lines: Peripheral IV, 3 way Lindsey Code Status: Full code Dispo: Stable. Subjective Date/time seen: 12/17/23 16:43 Interval history: No acute overnight events. Patient denies any abdominal pain. Review of Systems Review of Systems: All systems reviewed & are unremarkable except as noted in HPI and below (Subjective) Exam Narrative: General: Awake, alert, comfortable, no acute distress HEENT: Dry mucous membranes Respiratory: Normal respiratory effort, no accessory muscle use Abdomen: Nondistended, soft, nontender : 3 way catheter draining pinkish-red urine without clots Skin: Normal coloration, warm and dry Neurologic: No focal neuro deficits noted Objective Data Vital Signs Vital Signs: Vital Signs - 24 hr 12/16/23 16:46 12/16/23 17:46 12/16/23 19:18 Temperature 98.9 F Pulse Rate 90 77 75 Respiratory Rate 19 17 16 Blood Pressure 131/70 127/68 132/67 Pulse Oximetry 100 99 100 Oxygen Delivery 12/16/23 20:00 12/16/23 22:00 12/17/23 06:00 Temperature 98.3 F 98.3 F Pulse Rate 80 79 Respiratory Rate 20 20 Blood Pressure 137/65 126/65 Pulse Oximetry 100 100 Oxygen Delivery Room Air 12/17/23 10:13 12/17/23 14:00 Temperature 97.5 F L Pulse Rate Respiratory Rate 20 Blood Pressure 121/68 Pulse Oximetry 96 98 Oxygen Delivery Room Air Intake/Output Intake/Output: Intake & Output 12/14/23 12/15/23 12/16/23 12/17/23 23:59 23:59 23:59 23:59 Intake Total 740 Output Total 1925 Balance -1185 Meds/Results Medications: Active Medications Generic Name Dose Route Start
[2023-12-17] MEDS: TAMSULOSIN HCL 0.4 MG CAPSULE PO (20:50)
[2023-12-17 22:00] VITALS: BP 130/64; PULSE 83; RESP 14; TEMP 37.1; O2SAT 99
[2023-12-18] MEDS: LEVOTHYROXINE SODIUM 112 MCG TABLET PO (05:34)
[2023-12-18] MEDS: CEPHALEXIN 500 MG CAPSULE PO ×3 (05:34→20:27)
[2023-12-18 06:00] VITALS: BP 134/63; PULSE 70; RESP 14; TEMP 37; O2SAT 97
--- NOTE | 2023-12-18 06:31 | WPDUROPN2 ---
Progress Note: A&P Assessment and Plan (1) H/O prostate cancer: Code(s): Z85.46 - Personal history of malignant neoplasm of prostate Status: Acute (2) Hematuria: Code(s): R31.9 - Hematuria, unspecified Status: Acute Assessment and Plan: Catheter with spasms likely cause for ongoing hematuria. Urine clear this am - catheter out for voiding trial. Hold all anticholinergics for bladder spasms. Subjective Subjective Date/Time Seen: 12/18/23 06:31 Interval history: Urine clear overnight, no clots Review of Systems Cardiovascular: Cardiovascular: Denies chest pain, Denies lightheadedness, Denies palpitations and Denies dyspnea Respiratory: Respiratory: Denies dyspnea Gastrointestinal: Gastrointestinal: Denies diarrhea, Denies nausea and Denies vomiting Genitourinary: Genitourinary: Denies hematuria and Denies dysuria Endocrine: Endocrine: Denies palpitations Exam Const: General: no acute distress Resp: Effort & Inspection: normal respiratory effort GI: Inspection: non-distended GI Palp: No abdominal tenderness and No Guarding due to palpation present (GI) Auscultation: normal bowel sounds Urinary Catheter: Urinary Catheter: patent and draining and urine clear Objective Data Vital Signs Vital Signs: Vital Signs - 24 hr 12/17/23 10:13 12/17/23 14:00 12/17/23 20:00 Temperature 97.5 F L Pulse Rate Respiratory Rate 20 Blood Pressure 121/68 Pulse Oximetry 96 98 Oxygen Delivery Room Air Room Air 12/17/23 22:00 Temperature 98.8 F Pulse Rate 83 Respiratory Rate 14 Blood Pressure 130/64 Pulse Oximetry 99 Oxygen Delivery Intake/Output Intake/Output: Intake & Output 12/15/23 12/16/23 12/17/23 12/18/23 23:59 23:59 23:59 23:59 Intake Total 980 Output Total 3875 Balance -2895 Meds/Results Medications: Active Medications Generic Name Dose Route Start Last Admin Trade Name Freq PRN Reason Stop Dose Admin Cephalexin HCl 500 mg 12/16/23 22:40 12/18/23 05:34 Cephalexin 500 Mg Capsule PO 500 mg Q8HR ANNIE Administration Hydrochlorothiazide 12.5 mg 12/17/23 09:00 12/17/23 08:46 Hydrochlorothiazide 6.25 Mg Tablet PO 12.5 mg DAILY ANNIE Administration Levothyroxine Sodium 112 mcg 12/17/23 06:30 12/18/23 05:34 Levothyroxine Sodium 112 Mcg Tablet PO 112 mcg DAILY@0630 ANNIE Administration Lisinopril 20 mg 12/17/23 09:00 12/17/23 08:43 Lisinopril 20 Mg Tablet PO 20 mg DAILY ANNIE Administration Meclizine HCl 25 mg 12/16/23 22:37 12/17/23 08:43 Meclizine Hcl 25 Mg Tablet PO 25 mg BID PRN Administration dizziness Pantoprazole Sodium 40 mg 12/17/23 09:00 12/17/23 08:43 Pantoprazole 40 Mg Tablet PO 40 mg DAILY ANNIE Administration Rosuvastatin Calcium 20 mg 12/17/23 09:00 12/17/23 08:43 Rosuvastatin 10 Mg Tablet PO 20 mg DAILY ANNIE Administration Tamsulosin HCl 0.4 mg 12/16/23 22:50 12/17/23 20:50 Tamsulosin Hcl 0.4 Mg Capsule PO 0.4 mg HS ANNIE Administration Labs Labs: Laboratory Results - last 24 hr 12/17/23 13:32 WBC 7.3 RBC 3.16 L Hgb 8.8 L Hct 27.0 L MCV 85.4 MCH 27.8 MCHC 32.6 RDW 16.4 H Plt Count 294 MPV 8.3 Immature Gran % (Auto) 0.3 Neut % (Auto) 72.2 Lymph % (Auto) 10.7 L Roosevelt % (Auto) 11.6 H Eos % (Auto) 4.5 H Baso % (Auto) 0.7 Lymph # (Auto) 0.78 L Roosevelt # (Auto) 0.9 H Eos # (Auto) 0.3 Baso # (Auto) 0.1 Abs Immat Gran (auto) 0.02 Absolute Neuts (auto) 5.3 Absolute Nucleated RBC 0.0 Nucleated RBC % 0.0 Sodium 135 L Potassium 3.4 Chloride 102 Carbon Dioxide 25 Anion Gap 8 BUN 11 Creatinine 0.80 Estim Creat Clear Calc 69 Estimated GFR > 60 Glucose 101 Calcium 9.2
[2023-12-18 06:52] LABS: Hematocrit 24.9 % (42.0-52.0); Mean Corpuscular HGB Conc 32.1 g/dl (32-36); Mean Corpuscular Hemoglobin 27.9 pg (26-34); Mean Corpuscular Volume 86.8 fl (80-100); Mean Platelet Volume 8.9 fl (7.4-10.4); Platelet Count Result 300 k/mm3 (150-375); Red Blood Count 2.87 M/mm3 (4.6-6.20); Red Cell Distribution Width 16.4 % (11.5-14.5)
[2023-12-18 07:02] LABS: Anion Gap 3 mmol/L (8-16); Blood Urea Nitrogen 12 mg/dL (9-20); Calcium 8.8 mg/dL (8.4-10.2); Carbon Dioxide 28 mmol/L (22-30); Chloride 101 mmol/L (98-107); Estimated CRCL calculation 62 ml/min; Estimated Glomerular Filt Rate > 60; Glucose 92 mg/dL (65-110); Magnesium 2.2 mg/dL (1.6-2.3); Potassium 3.4 mmol/L (3.4-5.0); Sodium 132 mmol/L (137-145)
[2023-12-18] MEDS: ROSUVASTATIN 10 MG TABLET 20 MG PO (09:25)
[2023-12-18] MEDS: PANTOPRAZOLE 40 MG TABLET PO (09:25)
[2023-12-18] MEDS: lisinopriL 20 MG TABLET PO (09:25)
[2023-12-18] MEDS: hydroCHLOROthiazide 6.25 MG TABLET 12.5 MG PO (09:27)
--- NOTE | 2023-12-18 12:38 | PCCCNOTE ---
On 12/18/23, the student, [Kendy Colunga ], provided care and completed [facility] documentation on this patient. I have reviewed the student's documentation and agree with the findings.
--- NOTE | 2023-12-18 13:52 | PM.IMPN ---
Progress Note: A&P Assessment and Plan (1) Abnormal urinalysis: Code(s): R82.90 - Unspecified abnormal findings in urine Status: Acute (2) Chronic anemia: Code(s): D64.9 - Anemia, unspecified Status: Acute (3) H/O prostate cancer: Code(s): Z85.46 - Personal history of malignant neoplasm of prostate Status: Acute (4) Hematuria: Qualifiers: Hematuria type: unspecified type Qualified Code(s): R31.9 - Hematuria, unspecified Code(s): R31.9 - Hematuria, unspecified Status: Acute (5) Acute urinary retention: Code(s): R33.8 - Other retention of urine Status: Acute Plan per Samantha Mercado NP: This is a 73-year-old male with history of prostate cancer status post radiation several years ago, non muscle invasive bladder carcinoma status post TURBT in August 2023, hypertension, hyperlipidemia, and hypothyroidism presented to the emergency department for evaluation of problems with his Lindsey catheter. The patient provides the following history. He has been hospitalized multiple times with hematuria since April 2023 with his most recent admission being just last week. In fact he was discharged home yesterday after being admitted with acute urinary retention and gross hematuria. Last week he underwent cystoscopy with clot evacuation and cauterization of the bladder and prostatic urethra. He was on CBI for couple of days and was discharged home though he reports having intermittent pink tinged urine. This morning he noticed that he had minimal if any urine output from the night before and he was seen in the emergency department for urinary retention severe bladder spasms. His Lindsey catheter was exchanged, draining without issues, and he was discharged home. Not long after getting home he once again developed severe spasms in his bladder and reports passing blood and urine around the Lindsey catheter and he returned. He is being admitted in this setting for close monitoring and neurology consultation. He denies fever, chills, sweats, nausea, and vomiting. Urology following. On 12/18 the Lindsey catheter was removed. He is being monitored. Hemoglobin down from to 8.0 from 8.8. CTM. FEN: Saline lock IV GI prophylaxis: Not indicated DVT prophylaxis: SCDs, hold pharmacological prophylaxis Lines: Peripheral IV, 3 way Lindsey removed on 12/18 Code Status: Full code Dispo: Stable. Subjective Date/time seen: 12/18/23 13:52 Interval history: No acute overnight events. The patient's urine was clear and Urology continue the Lindsey. He did urinate some clots and blood. Urology following Review of Systems Review of Systems: All systems reviewed & are unremarkable except as noted in HPI and below (Subjective) Exam Const: General: comfortable and no acute distress Eyes: Pupils: Equal, round and reactive pupils present Resp: Effort & Inspection: normal respiratory effort Auscultation: clear to auscultation bilaterally Cardio: Rate: regular rate Rhythm: regular rhythm GI: GI Palp: Yes Soft to palpation and No Tenderness to palpation present (GI) Other: Mild distension Urinary Catheter: Urinary Catheter: urine with clots (Bloody urine with clots in the hat catch) Extrem: General: no edema Objective Data Vital Signs Vital Signs: Vital Signs - 24 hr 12/17/23 14:00 12/17/23 20:00 12/17/23 22:00 Temperature 97.5 F L 98.8 F Pulse Rate 83 Respiratory Rate 20 14 Blood Pressure 121/68 130/64 Pulse Oximetry 98 99 Oxygen Delivery Room Air 12/18/23 06:00 Temperature 98.6 F Pulse Rate 70 Respiratory Rate 14 Blood Pressure 134/63 Pulse Oximetry 97 Oxygen Delivery Intake/Output Intake/Output: Intake & Output 12/15/23 12/16/23 12/17/23 12/18/23 23:59 23:59 23:59 23:59 Intake Total 980 Output Total 6820 1300 Balance -2895 -1300 Meds/Results Medications: Active Medications Generic Name Dose Route Start Last Admin
[2023-12-18 14:00] VITALS: BP 116/64; PULSE 83; RESP 16; TEMP 37.1; O2SAT 98
[2023-12-18] MEDS: traMADol HCL (*CRX) 50 MG TABLET PO (17:44)
[2023-12-18] MEDS: TAMSULOSIN HCL 0.4 MG CAPSULE PO (20:27)
--- NOTE | 2023-12-18 20:33 | PC.NURSE ---
Pt had multiple voids with multiple quarter size clots. Pt had one void with 100 mls blood with 8-10 small clots. Unable to pass urine. Notified urologist KEVAN who ordered a one time straight cath. 425 bloody urine returned. Pt voiced relief.
[2023-12-18 20:57] VITALS: BP 144/67; PULSE 75; RESP 16; TEMP 36.7; O2SAT 100
[2023-12-19] VITALS (16 sets, daily range): BP systolic 90–142; BP diastolic 48–71; PULSE 62–85; RESP 12–18; TEMP 36.1–37.3; O2SAT 95–100
[2023-12-19] MEDS: MORPHINE SULFATE (*CRX) 2 MG/ML INJ IV PUSH ×3 (04:12→19:57)
[2023-12-19] MEDS: LEVOTHYROXINE SODIUM 112 MCG TABLET PO (05:24)
[2023-12-19] MEDS: CEPHALEXIN 500 MG CAPSULE PO ×3 (05:24→19:58)
--- NOTE | 2023-12-19 06:36 | WPDHPUPDATE1 ---
History and Physical Update Update Date/Time: 12/19/23 06:36 History and Physical has been reviewed, including an updated exam of the patient. There are NO changes in the patient's condition. Risks, benefits, and alternatives have been discussed and questions answered. Patient agrees to proceed with procedure.
--- NOTE | 2023-12-19 06:37 | WPDUROPN2 ---
Progress Note: A&P Assessment and Plan (1) H/O prostate cancer: Code(s): Z85.46 - Personal history of malignant neoplasm of prostate Status: Acute (2) History of bladder cancer: Code(s): Z85.51 - Personal history of malignant neoplasm of bladder Status: Acute (3) Hematuria: Qualifiers: Hematuria type: unspecified type Qualified Code(s): R31.9 - Hematuria, unspecified Code(s): R31.9 - Hematuria, unspecified Status: Acute Assessment and Plan: After voiding for 12+ hours yesterday Lindsey catheter was replaced last night for retention and bladder volume greater than 500 cc Although his urine is draining his bladder is not irrigating freely, suggesting recurrent clot retention. I will plan repeat cystoscopy with clot evacuation and cauterization of any apparent bleeding sites. Subjective Subjective Date/Time Seen: 12/19/23 06:37 Interval history: After voiding thru day yesterday, catheter replaced for bladder volume 500+cc last night Review of Systems Review of Systems: All systems reviewed & are unremarkable except as noted in HPI and below Exam Const: General: no acute distress Resp: Effort & Inspection: normal respiratory effort GI: Inspection: non-distended GI Palp: No abdominal tenderness and No Guarding due to palpation present (GI) Auscultation: normal bowel sounds Urinary Catheter: Urinary Catheter: urine red and other (not irritating freely) Objective Data Vital Signs Vital Signs: Vital Signs - 24 hr 12/18/23 14:00 12/18/23 20:57 12/18/23 20:00 Temperature 98.7 F 98.0 F Pulse Rate 83 75 Respiratory Rate 16 16 Blood Pressure 116/64 144/67 H Pulse Oximetry 98 100 Oxygen Delivery Room Air Intake/Output Intake/Output: Intake & Output 12/16/23 12/17/23 12/18/23 12/19/23 23:59 23:59 23:59 23:59 Intake Total 980 1340 1500 Output Total 1925 4433 975 Balance -2616 -022 335 Meds/Results Medications: Active Medications Generic Name Dose Route Start Last Admin Trade Name Freq PRN Reason Stop Dose Admin Acetaminophen 650 mg 12/18/23 17:28 Acetaminophen 325 Mg Tablet PO Q4H PRN Pain Rated 1-3 Cephalexin HCl 500 mg 12/16/23 22:40 12/19/23 05:24 Cephalexin 500 Mg Capsule PO 500 mg Q8HR ANNIE Administration Hydrochlorothiazide 12.5 mg 12/17/23 09:00 12/18/23 09:27 Hydrochlorothiazide 6.25 Mg Tablet PO 12.5 mg DAILY ANNIE Administration Levothyroxine Sodium 112 mcg 12/17/23 06:30 12/19/23 05:24 Levothyroxine Sodium 112 Mcg Tablet PO 112 mcg DAILY@0630 ANNIE Administration Lisinopril 20 mg 12/17/23 09:00 12/18/23 09:25 Lisinopril 20 Mg Tablet PO 20 mg DAILY ANNIE Administration Meclizine HCl 25 mg 12/16/23 22:37 12/17/23 08:43 Meclizine Hcl 25 Mg Tablet PO 25 mg BID PRN Administration dizziness Morphine Sulfate 2 mg 12/18/23 17:28 12/19/23 04:12 Morphine Sulfate (*Crx) 2 Mg/Ml Inj IV PUSH 2 mg Q4H PRN Administration Pain Rated 7-10 Pantoprazole Sodium 40 mg 12/17/23 09:00 12/18/23 09:25 Pantoprazole 40 Mg Tablet PO 40 mg DAILY [facility] Administration Rosuvastatin Calcium 20 mg 12/17/23 09:00 12/18/23 09:25 Rosuvastatin 10 Mg Tablet PO 20 mg DAILY [facility] Administration Tamsulosin HCl 0.4 mg 12/16/23 22:50 12/18/23 20:27 Tamsulosin Hcl 0.4 Mg Capsule PO 0.4 mg HS [facility] Administration Tramadol HCl 50 mg 12/18/23 17:28 12/18/23 17:44 Tramadol Hcl (*Crx) 50 Mg Tablet PO 50 mg Q4H PRN Administration Pain Rated 4-6 Labs Labs: Laboratory Results - last 24 hr 12/18/23 12/18/23 05:47 15:00 WBC 6.0 RBC 2.87 L Hgb 8.0 L Hct 24.9 L MCV 86.8 MCH 27.9 MCHC 32.1 RDW 16.4 H Plt Count 300 MPV 8.9 Sodium 132 L Potassium 3.4 Chloride 101 Carbon Dioxide 28 Anion Gap 3 L BUN 12 Creatinine 0.90 Estim Creat Clear Calc 62 Estimated GFR > 60 Glucose 92
[2023-12-19 07:07] LABS: Hematocrit 24.2 % (42.0-52.0); Mean Corpuscular HGB Conc 33.1 g/dl (32-36); Mean Corpuscular Hemoglobin 27.8 pg (26-34); Mean Platelet Volume 9.1 fl (7.4-10.4); Platelet Count Result 277 k/mm3 (150-375); Red Blood Count 2.88 M/mm3 (4.6-6.20); Red Cell Distribution Width 15.7 % (11.5-14.5); White Blood Count 5.4 K/mm3 (4.5-10.0)
[2023-12-19 07:12] LABS: Anion Gap 5 mmol/L (8-16); Blood Urea Nitrogen 10 mg/dL (9-20); Calcium 8.4 mg/dL (8.4-10.2); Carbon Dioxide 25 mmol/L (22-30); Chloride 94 mmol/L (98-107); Estimated CRCL calculation 69 ml/min; Estimated Glomerular Filt Rate > 60; Glucose 87 mg/dL (65-110); Potassium 3.2 mmol/L (3.4-5.0); Sodium 124 mmol/L (137-145)
[2023-12-19] MEDS: MECLIZINE HCL 25 MG TABLET PO (07:52)
[2023-12-19] MEDS: lisinopriL 20 MG TABLET PO (08:00)
[2023-12-19] MEDS: ROSUVASTATIN 10 MG TABLET 20 MG PO (08:00)
[2023-12-19] MEDS: PANTOPRAZOLE 40 MG TABLET PO (08:00)
[2023-12-19] MEDS: hydroCHLOROthiazide 6.25 MG TABLET 12.5 MG PO (08:10)
[2023-12-19] MEDS: traMADol HCL (*CRX) 50 MG TABLET PO ×3 (08:16→21:32)
--- NOTE | 2023-12-19 09:44 | PM.IMPN ---
Progress Note: A&P Assessment and Plan (1) Abnormal urinalysis: Code(s): R82.90 - Unspecified abnormal findings in urine Status: Acute (2) Chronic anemia: Code(s): D64.9 - Anemia, unspecified Status: Acute (3) H/O prostate cancer: Code(s): Z85.46 - Personal history of malignant neoplasm of prostate Status: Acute (4) Hematuria: Qualifiers: Hematuria type: unspecified type Qualified Code(s): R31.9 - Hematuria, unspecified Code(s): R31.9 - Hematuria, unspecified Status: Acute (5) Acute urinary retention: Code(s): R33.8 - Other retention of urine Status: Acute Plan Urology following. 12/18 the Lindsey catheter was removed. He is being monitored. Hemoglobin stable at 8 12/19: urology planning repeat cystoscopy for clot evacuation FEN: Saline lock IV GI prophylaxis: Not indicated DVT prophylaxis: SCDs, hold pharmacological prophylaxis Lines: Peripheral IV, 3 way Lindsey removed on 12/18 Code Status: Full code Dispo: Stable. Subjective Date/time seen: 12/19/23 09:44 Interval history: 73-year-old male with history of prostate cancer status post radiation several years ago, non muscle invasive bladder carcinoma status post TURBT in August 2023, hypertension, hyperlipidemia, and hypothyroidism presented to the emergency department for evaluation of problems with his Lindsey catheter. The patient has been hospitalized multiple times with hematuria since April 2023 with his most recent admission being just last week. In fact he was discharged home yesterday after being admitted with acute urinary retention and gross hematuria. Last week he underwent cystoscopy with clot evacuation and cauterization of the bladder and prostatic urethra. He was on CBI for a couple of days and was discharged home though he reports having intermittent pink tinged urine. This morning he noticed that he had minimal, if any, urine output from the night before and he was seen in the emergency department for urinary retention severe bladder spasms. His Lindsey catheter was exchanged, draining without issues, and he was discharged home. Not long after getting home he once again developed severe spasms in his bladder and reports passing blood and urine around the Lindsey catheter and he returned. He is being admitted in this setting for close monitoring and urology consultation. No overnight events noted. In cystoscopy Exam Narrative: Per urology Objective Data Vital Signs Vital Signs: Vital Signs - 24 hr 12/18/23 14:00 12/18/23 20:57 12/18/23 20:00 Temperature 98.7 F 98.0 F Pulse Rate 83 75 Respiratory Rate 16 16 Blood Pressure 116/64 144/67 H Pulse Oximetry 98 100 Oxygen Delivery Room Air 12/19/23 06:00 12/19/23 08:29 Temperature 98.1 F Pulse Rate 68 70 Respiratory Rate 16 Blood Pressure 130/71 Pulse Oximetry 100 97 Oxygen Delivery Room Air Intake/Output Intake/Output: Intake & Output 12/16/23 12/17/23 12/18/23 12/19/23 23:59 23:59 23:59 23:59 Intake Total 980 1340 1500 Output Total 3875 1975 975 Balance -2532 -404 525 Meds/Results Medications: Active Medications Generic Name Dose Route Start Last Admin Trade Name Freq PRN Reason Stop Dose Admin Acetaminophen 650 mg 12/18/23 17:28 Acetaminophen 325 Mg Tablet PO Q4H PRN Pain Rated 1-3 Cephalexin HCl 500 mg 12/16/23 22:40 12/19/23 05:24 Cephalexin 500 Mg Capsule PO 500 mg Q8HR ANNIE Administration Hydrochlorothiazide 12.5 mg 12/17/23 09:00 12/19/23 08:10 Hydrochlorothiazide 6.25 Mg Tablet PO 12.5 mg DAILY ANNIE Administration Levothyroxine Sodium 112 mcg 12/17/23 06:30 12/19/23 05:24 Levothyroxine Sodium 112 Mcg Tablet PO 112 mcg DAILY@0630 ANNIE Administration Lisinopril 20 mg 12/17/23 09:00 12/19/23 08:00 Lisinopril 20 Mg Tablet PO 20 mg DAILY ANNIE Administration Meclizine HCl 25 mg 12/16/23 22:37
[2023-12-19] MEDS: FAMOTIDINE 20 MG/2 ML VIAL IV PUSH (09:59)
[2023-12-19] MEDS: ONDANSETRON INJ 4 MG/2 ML VIAL IV PUSH (09:59)
--- NOTE | 2023-12-19 10:08 | WPDANESEPPF ---
Anes - Initial Pre Proc Eval Procedure: Operation Date: 12/19/23 10:45 Proposed Procedures p Cystoscopy, Evacuation Bladder Clots - Joey Matias MD Date/Time: 12/19/23 10:08 Surgeon: Yony Luna MD Pre Op Diagnosis: Bladder spasm, urinary retention, Lindsey catheter Patient Data Age: 73 Gender: M Height: 1.73 m Weight: 78.3 kg Last Vital Signs Temp 36.7 C 12/19/23 06:00 Pulse 70 12/19/23 08:29 Resp 16 12/19/23 06:00 BP 130/71 12/19/23 06:00 Pulse Ox 97 12/19/23 08:29 O2 Del Method Room Air 12/19/23 08:29 Allergies Allergy/AdvReac Type Severity Reaction Status Date / Time No Known Allergies Allergy Unknown Verified 12/16/23 18:41 Home Medications Medication Instructions Recorded Confirmed Type rosuvastatin 20 mg tablet 20 mg PO DAILY #90 tabs 04/12/23 12/16/23 Rx levothyroxine 112 mcg tablet 112 mcg PO DAILY #90 tabs 07/05/23 12/16/23 Rx hydrochlorothiazide 25 mg tablet 12.5 mg PO DAILY #90 tabs 07/16/23 12/16/23 Rx lisinopril 20 mg tablet 20 mg PO DAILY #90 tabs 10/06/23 12/16/23 Rx tamsulosin 0.4 mg capsule 0.4 mg PO HS 10/24/23 12/16/23 History meclizine 25 mg tablet 25 mg PO BID PRN dizziness #60 tabs 11/29/23 12/16/23 Rx hyoscyamine sulfate 0.125 mg 0.125 mg PO Q4H PRN Bladder Spasm 12/12/23 12/16/23 Rx disintegrating tablet (Anaspaz) #20 tabs sodium chloride 1,000 mg soluble 1,000 mg PO TID Dose for one day 12/12/23 12/16/23 Rx tablet then have labs checked #3 tabs cephalexin 500 mg capsule 500 mg PO Q8H 7 days #21 caps 12/16/23 12/16/23 Rx omeprazole 20 mg capsule,delayed 20 mg PO DAILY 12/16/23 12/16/23 History release Laboratory Tests 12/18/23 12/19/23 15:00 05:56 WBC 5.4 K/mm3 (4.5-10.0) RBC 2.88 L M/mm3 (4.6-6.20) Hgb 8.0 L g/dL (14.0-18.0) Hct 24.2 L % (42.0-52.0) MCV 84.0 fl (80-100) MCH 27.8 pg (26-34) MCHC 33.1 g/dl (32-36) RDW 15.7 H % (11.5-14.5) Plt Count 277 k/mm3 (150-375) MPV 9.1 fl (7.4-10.4) Sodium 124 L mmol/L (137-145) Potassium 3.2 L mmol/L (3.4-5.0) Chloride 94 L mmol/L (98-107) Carbon Dioxide 25 mmol/L (22-30) Anion Gap 5 L mmol/L (8-16) BUN 10 mg/dL (9-20) Creatinine 0.80 mg/dL (0.7-1.3) Estim Creat Clear Calc 69 ml/min Estimated GFR > 60 (59 - ) Glucose 87 mg/dL (65-110) Calcium 8.4 mg/dL (8.4-10.2) Magnesium 2.0 mg/dL (1.6-2.3) Patient hx anesthesia problems: none Family hx anesthesia problems: none Results Review: All pre-operative results and documents have been reviewed as part of the pre-operative evaluation. REPLACED BY [facility] Past Medical History Medical History Adenomatous colon polyp Anemia in chronic kidney disease Anxiety disorder due to medical condition Bladder cancer (08/2023) Noninvasive low-grade papillary urothelial carcinoma. Bulbous urethral stricture Gastroesophageal reflux disease Hyperlipidemia Hypertension Hypothyroidism Osteomyelitis of mandible Prostate cancer Status post radiation. Pure hypercholesterolemia Tongue cancer Status post radiation. Surgical History Surgical History History of colonoscopy with polypectomy History of cystoscopy History of hernia repair History of mandibular surgery History of transurethral resection of bladder tumor (TURBT) Family History Family History Father Diabetes mellitus Hypertension Acute angina Coronary artery disease Heart disease Mother Congestive heart failure Diabetes mellitus Sibling Myocardial infarction Heart disease Sibling No problems noted. Social History Social History Social Histo
--- NOTE | 2023-12-19 10:24 | PC.NURSE ---
pt to surgery at 0900
[2023-12-19] MEDS: ceFAZolin 2 GM/D5W 50 ML 2 GM/50 ML BAG IVPB (11:15)
[2023-12-19] MEDS: TRANEXAMIC ACID 1,000 MG/10 ML AMPUL 1000 MG IV PUSH (11:44)
--- NOTE | 2023-12-19 11:44 | PC.NURSE ---
morning potassium late. med was ordered after pt went down to surgery. will administer to pt when pt is back to unit
--- NOTE | 2023-12-19 11:50 | W.PM.PROC2 ---
Procedure Note - Detailed Date of Procedure 12/19/23 Pre-op Diagnosis Persistent hematuria with recurrent clot retention Post-op Diagnosis Same Procedure Performed Cystoscopy, clot evacuation, cauterization of prostatic urethra and bladder Surgeon Joey Matias MD Anesthesia General Indications 1. No evidence of recurrent urothelial bladder neoplasm 2. No evidence of bladder outlet obstruction 3. Very minimal oozing from prostatic urethra and posterior bladder wall 4. Clear efflux from each ureteral orifice Description of Procedure patient is brought to the operative suite where he was prepped and draped in routine sterile fashion 1 dorsal lithotomy position after the uneventful induction of a general LMA anesthetic. Cystoscopy was undertaken with a 24 F rigid cystoscope. He has about 30-40 cc of clot in the dependent portion of the bladder which was irrigated easily. The bladder is very carefully inspected. There is no findings of recurrent urothelial neoplasm and there is clear efflux of urine from each ureteral orifice. There was some minimal hyperemia in the posterior bladder wall which I suspect is related to catheter cystitis. The bladder neck and prostatic urethra are wide open without any evidence of obstruction. There is some mild hyperemia of the urothelium mucosa in the prostatic urethra. Using a rollerball I cauterized any and all areas of hyperemia. There was no active bleeding in any type the termination of our procedure. The resectoscope was removed and a [address] catheter was placed to continuous irrigation. Efflux was clear at the termination Estimated Blood Loss 100 Urine Output 500 Drains Yes Packing No Pathology None sent Complications No immediate complications Condition Stable
[2023-12-19] MEDS: LACTATED RINGERS 1,000 ML 30 ML IV CONT ×2 (11:53→11:54)
[2023-12-19] MEDS: fentaNYL CITRATE INJ (*CRX) 100 MCG/2 ML VIAL 25 MCG IV PUSH ×4 (12:19→13:02)
[2023-12-19] MEDS: POTASSIUM CHLORIDE 20 MEQ ER TABLET 40 MEQ PO (13:38)
--- NOTE | 2023-12-19 15:40 | PC.NURSE ---
received pt from PACU at 1320
[2023-12-19] MEDS: TAMSULOSIN HCL 0.4 MG CAPSULE PO (19:58)
[2023-12-19] MEDS: ACETAMINOPHEN 325 MG TABLET 650 MG PO (20:43)
[2023-12-20] MEDS: traMADol HCL (*CRX) 50 MG TABLET PO ×3 (05:16→18:00)
[2023-12-20] MEDS: HYOSCYAMINE SULFATE 0.125 MG TABLET PO ×2 (05:16→17:15)
[2023-12-20] MEDS: CEPHALEXIN 500 MG CAPSULE PO ×3 (05:19→20:51)
[2023-12-20 06:38] LABS: Basophils Percent Auto 0.7 % (0.2-1.2); Eosinophils Absolute Auto 0.2 K/mm3 (0-0.3); Eosinophils Percent Auto 3.9 % (0-4.4); Hemoglobin 7.5 g/dL (14.0-18.0); Immature Granulocyte Absolute 0.03 K/mm3 (0.00-0.031); Immature Granulocyte Percent A 0.6 % (0-0.5); Lymphocytes Absolute Auto 0.72 K/mm3 (0.9-3.2); Lymphocytes Percent Auto 13.2 % (18.3-44.2); Mean Corpuscular HGB Conc 32.6 g/dl (32-36); Mean Corpuscular Hemoglobin 27.7 pg (26-34); Mean Corpuscular Volume 84.9 fl (80-100); Mean Platelet Volume 8.7 fl (7.4-10.4); Monocytes Absolute Auto 0.7 K/mm3 (0.1-0.6); Monocytes Percent Auto 13.4 % (2.6-8.5); Neutrophils Absolute Auto 3.7 K/mm3 (1.3-6.7); Neutrophils Percent Auto 68.2 % (45.5-73.1); Platelet Count Result 252 k/mm3 (150-375); Red Blood Count 2.71 M/mm3 (4.6-6.20); Red Cell Distribution Width 15.7 % (11.5-14.5); White Blood Count 5.5 K/mm3 (4.5-10.0)
--- NOTE | 2023-12-20 06:51 | WPDUROPN2 ---
Progress Note: A&P Assessment and Plan (1) History of bladder cancer: Code(s): Z85.51 - Personal history of malignant neoplasm of bladder Status: Acute (2) H/O prostate cancer: Code(s): Z85.46 - Personal history of malignant neoplasm of prostate Status: Acute (3) Hematuria: Code(s): R31.9 - Hematuria, unspecified Status: Acute Assessment and Plan: 1. 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 I'm going to have my office come to his room and teach him Intermittent Self Catheterization (ISC) - better rat exterminator option for emptying bladder. 2. Persistent hematuria: This is very difficult for me to explain. He has no signs of upper urinary tract bleeding (normal CT-abd/pelvis w/wo in 06/13, normal renal u/s this admission and clear efflux of urine from ureters on cysto. x2). He has history of bladder cancer but no recurrence identified on cysto. x2. He also has history of pelvic radiation for prostate cancer but no signs of radiation cystitis on cysto. x2. Bleeding persists despite extensive cauterization slight oozing from prostatic urethra and despite Amicar and Tranexamic acid (TXA). I've considered he may have unrecognized coagulopathy. If bleeding recurs after cauterization yesterday may consider hematology consultation. Subjective Subjective Date/Time Seen: 12/20/23 06:51 Interval history: Comfortable Urine clear on slow CBI but RN reports it gets pink if CBI off Review of Systems Cardiovascular: Cardiovascular: Denies chest pain, Denies lightheadedness, Denies palpitations and Denies dyspnea Respiratory: Respiratory: Denies dyspnea Gastrointestinal: Gastrointestinal: Denies diarrhea, Denies nausea and Denies vomiting Genitourinary: Genitourinary: Denies hematuria and Denies dysuria Endocrine: Endocrine: Denies palpitations Exam Const: General: no acute distress Resp: Effort & Inspection: normal respiratory effort GI: Inspection: non-distended GI Palp: No abdominal tenderness and No Guarding due to palpation present (GI) Auscultation: normal bowel sounds Objective Data Vital Signs Vital Signs: Vital Signs - 24 hr 12/19/23 08:29 12/19/23 10:08 12/19/23 08:00 Temperature 99.2 F Pulse Rate 70 73 Respiratory Rate 18 Blood Pressure 142/63 H Pulse Oximetry 97 100 Oxygen Delivery Room Air Room Air Room Air Oxygen Flow Rate 12/19/23 11:53 12/19/23 12:00 12/19/23 12:05 Temperature 96.9 F L Pulse Rate 62 75 Respiratory Rate 16 12 Blood Pressure 97/56 L 119/57 L Pulse Oximetry 100 100 100 Oxygen Delivery Simple Face Mask Simple Face Mask Room Air Oxygen Flow Rate 10 8 12/19/23 12:15 12/19/23 12:30 12/19/23 12:47 Temperature Pulse Rate 81 76 73 Respiratory Rate 12 12 15 Blood Pressure 121/70 128/57 L 129/62 Pulse Oximetry 100 98 95 Oxygen Delivery Room Air Room Air Room Air Oxygen Flow Rate 12/19/23 13:00 12/19/23 13:25 12/19/23 13:40 Temperature 98.1 F 97.6 F Pulse Rate 76 84 78 Respiratory Rate 15 18 18 Blood Pressure 138/67 130/66 141/58 H Pulse Oximetry 97 100 98 Oxygen Delivery Room Air Oxygen Flow Rate 12/19/23 15:26 12/19/23 15:10 12/19/23 22:15 Temperature 97.7 F 97.1 F L 97.9 F Pulse Rate 85 81 71 Respiratory Rate 16 18 Blood Pressure 117/51 L 118/55 L 90/48 L Pulse Oximetry 100 99 98 Oxygen Delivery Oxygen Flow Rate 12/19/23 20:00 Temperature Pulse Rate 71 Respiratory Rate 18 Blood Pressure Pulse Oximetry 98 Oxygen Delivery Room Air Oxygen Flow Rate Intake/Output Intake/Output: Intake & Output 12/17/23 12/18/23 12/19/23 12/20/23 23:59 23:59 23:59 23:59 Intake Total 980 1340 8880 150 Output Total 6897 6151 7750 575 [facility] -7930 -262 1130 -063 Meds/Results Medications: Active Medications Generic Name Dose R
[2023-12-20 07:00] LABS: Alanine Aminotransferase 11 U/L (6-50); Albumin Level 3.4 g/dL (3.5-5.1); Alkaline Phosphatase 55 U/L (38-126); Anion Gap 2 mmol/L (8-16); Aspartate Amino Transferase 22 U/L (17-59); Bilirubin,Total 0.4 mg/dL (0.2-1.3); Blood Urea Nitrogen 14 mg/dL (9-20); Calcium 8.6 mg/dL (8.4-10.2); Carbon Dioxide 29 mmol/L (22-30); Chloride 96 mmol/L (98-107); Estimated CRCL calculation 51 ml/min; Estimated Glomerular Filt Rate > 60; Glucose 91 mg/dL (65-110); Potassium 4.7 mmol/L (3.4-5.0); Sodium 127 mmol/L (137-145)
[2023-12-20] MEDS: ROSUVASTATIN 10 MG TABLET 20 MG PO (09:03)
[2023-12-20] MEDS: lisinopriL 20 MG TABLET PO (09:03)
[2023-12-20] MEDS: PANTOPRAZOLE 40 MG TABLET PO (09:03)
[2023-12-20] MEDS: hydroCHLOROthiazide 6.25 MG TABLET 12.5 MG PO (09:10)
[2023-12-20] MEDS: ACETAMINOPHEN 325 MG TABLET 650 MG PO (09:10)
[2023-12-20] MEDS: SODIUM CHLORIDE 0.9% IV 1,000 ML 100 ML IV CONT ×2 (09:11→18:55)
[2023-12-20 14:00] VITALS: BP 113/51; PULSE 82; RESP 18; TEMP 36.4; O2SAT 94
--- NOTE | 2023-12-20 15:17 | PM.IMPN ---
Progress Note: A&P Assessment and Plan (1) Abnormal urinalysis: Code(s): R82.90 - Unspecified abnormal findings in urine Status: Acute (2) Chronic anemia: Code(s): D64.9 - Anemia, unspecified Status: Acute (3) H/O prostate cancer: Code(s): Z85.46 - Personal history of malignant neoplasm of prostate Status: Acute (4) Hematuria: Qualifiers: Hematuria type: unspecified type Qualified Code(s): R31.9 - Hematuria, unspecified Code(s): R31.9 - Hematuria, unspecified Status: Acute Assessment and Plan: unsure source/cause no signs of upper urinary tract bleeding (normal CT-abd/pelvis w/wo in 06/13, normal renal u/s this admission and clear efflux of urine from ureters on cysto. x2). He has history of bladder cancer but no recurrence identified on cysto. x2. He also has history of pelvic radiation for prostate cancer but no signs of radiation cystitis on cysto. x2. 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 Uro teach him Intermittent Self Catheterization (ISC) - better terminologist option for emptying bladder. Plan FEN: Saline lock IV GI prophylaxis: Not indicated DVT prophylaxis: SCDs, hold pharmacological prophylaxis Lines: Peripheral IV, 3 way Lindsey removed on 12/18 Code Status: Full code Dispo: Stable. Subjective Date/time seen: 12/20/23 15:17 Interval history: Patient feeling frustrated, but pleasant and cooperative. He denies pain or distress currently. He understands he will need to cath himself on discharge. Catheter showed red urine draining. Sodium remains low, down to 124 this am. With low chloride, started on NACL IVF and will continue to monitor. Review of Systems Review of Systems: All systems reviewed & are unremarkable except as noted in HPI and below (Subjective) Exam Narrative: General: Well-developed, nontoxic-appearing gentleman supine in bed in no acute distress. HEENT: PERRLA, EOMI. Neck: Supple. Respiratory: Lungs are clear to auscultation bilaterally. Cardiovascular: RRR Gastrointestinal: Abdomen is soft, nontender, and nondistended with positive bowel sounds. Genitourinary: Lindsey catheter draining red, dark colored urine. Skin: Warm and dry. Extremities: No cyanosis, clubbing, or edema. Radial and pedal pulses intact. Neurological: A&O x3. Cranial nerves 2-12 are grossly intact. Psychiatric: Appropriate mood. Objective Data Vital Signs Vital Signs: Vital Signs - 24 hr 12/19/23 15:26 12/19/23 22:15 12/19/23 20:00 Temperature 97.7 F 97.9 F Pulse Rate 85 71 71 Respiratory Rate 16 18 18 Blood Pressure 117/51 L 90/48 L Pulse Oximetry 100 98 98 Oxygen Delivery Room Air 12/20/23 08:00 12/20/23 14:00 Temperature 97.6 F Pulse Rate 82 Respiratory Rate 18 Blood Pressure 113/51 L Pulse Oximetry 94 Oxygen Delivery Room Air Intake/Output Intake/Output: Intake & Output 12/17/23 12/18/23 12/19/23 12/20/23 23:59 23:59 23:59 23:59 Intake Total 980 1340 8880 624 Output Total 3875 1975 7750 4075 [facility] [phone] Meds/Results Medications: Active Medications Generic Name Dose Route Start Last Admin Trade Name Freq PRN Reason Stop Dose Admin Acetaminophen 650 mg 12/18/23 17:28 12/20/23 09:10 Acetaminophen 325 Mg Tablet PO 650 mg Q4H PRN Administration Pain Rated 1-3 Cephalexin HCl 500 mg 12/16/23 22:40 12/20/23 05:19 Cephalexin 500 Mg Capsule PO 500 mg Q8HR ANNIE Administration Hydrochlorothiazide 12.5 mg 12/17/23 09:00 12/20/23 09:10 Hydrochlorothiazide 6.25 Mg Tablet PO 12.5 mg DAILY ANNIE Administration Hyoscyamine 0.125 mg 12/19/23 22:04
[2023-12-20] MEDS: AMINOCAPROIC ACID INJ 5,000 MG in DEXTROSE 5% IN WATER 250 ML 50 MG IVPB (18:30)
[2023-12-20] MEDS: AMINOCAPROIC ACID INJ 5,000 MG in DEXTROSE 5% IN WATER 250 ML 270 MG IVPB (18:41)
[2023-12-20] MEDS: TAMSULOSIN HCL 0.4 MG CAPSULE PO (20:51)
[2023-12-20 21:12] VITALS: BP 122/61; PULSE 80; RESP 13; TEMP 36.8; O2SAT 97
[2023-12-21] MEDS: CEPHALEXIN 500 MG CAPSULE PO ×3 (05:15→20:38)
[2023-12-21] MEDS: LEVOTHYROXINE SODIUM 112 MCG TABLET PO (05:15)
[2023-12-21 05:24] VITALS: BP 94/55; PULSE 70; RESP 14; TEMP 36.9; O2SAT 97
--- NOTE | 2023-12-21 06:27 | WPDUROPN2 ---
Progress Note: A&P Assessment and Plan (1) History of bladder cancer: Code(s): Z85.51 - Personal history of malignant neoplasm of bladder Status: Acute (2) H/O prostate cancer: Code(s): Z85.46 - Personal history of malignant neoplasm of prostate Status: Acute (3) Hematuria: Code(s): R31.9 - Hematuria, unspecified Status: Acute Assessment and Plan: 1. 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 I'm going to have my office come to his room and teach him Intermittent Self Catheterization (ISC) - better exterminator option for emptying bladder. 2. Persistent hematuria: This is very difficult for me to explain. He has no signs of upper urinary tract bleeding (normal CT-abd/pelvis w/wo in 06/13, normal renal u/s this admission and clear efflux of urine from ureters on cysto. x2). He has history of bladder cancer but no recurrence identified on cysto. x2. He also has history of pelvic radiation for prostate cancer but no signs of radiation cystitis on cysto. x2. Bleeding persists despite extensive cauterization slight oozing from prostatic urethra and despite Amicar and Tranexamic acid (TXA). I've considered he may have unrecognized coagulopathy. If bleeding recurs after cauterization yesterday may consider hematology consultation. 12/21/2023 Urine clear while on Amicar drip overnight and slow CBI Hematology consult re: evaluation coagulopathy Goal: possibly home this weekend with indwelling catheter / voiding trial with Intermittent Self Catheterization (ISC) next week. Pt. was instructed in ISC yesterday and supplied with catheters. Subjective Subjective Date/Time Seen: 12/21/23 06:27 Interval history: Comfortable Urine clear on Amicar drip / slow CBI Review of Systems Cardiovascular: Cardiovascular: Denies chest pain, Denies lightheadedness, Denies palpitations and Denies dyspnea Respiratory: Respiratory: Denies dyspnea Gastrointestinal: Gastrointestinal: Denies diarrhea, Denies nausea and Denies vomiting Genitourinary: Genitourinary: Denies hematuria and Denies dysuria Endocrine: Endocrine: Denies palpitations Exam Const: General: no acute distress Resp: Effort & Inspection: normal respiratory effort GI: Inspection: non-distended GI Palp: No abdominal tenderness and No Guarding due to palpation present (GI) Auscultation: normal bowel sounds Urinary Catheter: Urinary Catheter: patent and draining and urine clear Objective Data Vital Signs Vital Signs: Vital Signs - 24 hr 12/20/23 08:00 12/20/23 14:00 12/20/23 21:12 Temperature 97.6 F 98.2 F Pulse Rate 82 80 Respiratory Rate 18 13 Blood Pressure 113/51 L 122/61 Pulse Oximetry 94 97 Oxygen Delivery Room Air 12/20/23 20:00 12/21/23 05:24 Temperature 98.5 F Pulse Rate 70 Respiratory Rate 14 Blood Pressure 94/55 L Pulse Oximetry 97 Oxygen Delivery Room Air Intake/Output Intake/Output: Intake & Output 12/18/23 12/19/23 12/20/23 12/21/23 23:59 23:59 23:59 23:59 Intake Total 1340 8880 2124 1200 Output Total 1975 7743 20065 [facility] -635 1130 29597 1200 Meds/Results Medications: Active Medications Generic Name Dose Route Start Last Admin Trade Name Freq PRN Reason Stop Dose Admin Acetaminophen 650 mg 12/18/23 17:28 12/20/23 09:10 Acetaminophen 325 Mg Tablet PO 650 mg Q4H PRN Administration Pain Rated 1-3 Cephalexin HCl 500 mg 12/16/23 22:40 12/21/23 05:15 Cephalexin 500 Mg Capsule PO 500 mg Q8HR ANNIE Administration Hydrochlorothiazide 12.5 mg 12/17/23 09:00 12/20/23 09:10 Hydrochlorothiazide 6.25 Mg Tablet PO 12.5 mg DAILY ANNIE Administration Hyoscyamine 0.125 mg 12/19/23 22:04 12/20/23 17:15 Hyoscyamine Sulfate 0.125 Mg Tablet PO 0.125 mg Q4H PRN Administration Bladder Spa
[2023-12-21 07:03] LABS: Basophils Percent Auto 0.6 % (0.2-1.2); Eosinophils Absolute Auto 0.3 K/mm3 (0-0.3); Eosinophils Percent Auto 4.9 % (0-4.4); Hematocrit 22.4 % (42.0-52.0); Hemoglobin 7.3 g/dL (14.0-18.0); Immature Granulocyte Absolute 0.01 K/mm3 (0.00-0.031); Immature Granulocyte Percent A 0.2 % (0-0.5); Lymphocytes Absolute Auto 0.52 K/mm3 (0.9-3.2); Lymphocytes Percent Auto 9.9 % (18.3-44.2); Mean Corpuscular HGB Conc 32.6 g/dl (32-36); Mean Corpuscular Hemoglobin 27.8 pg (26-34); Mean Corpuscular Volume 85.2 fl (80-100); Mean Platelet Volume 8.9 fl (7.4-10.4); Monocytes Absolute Auto 0.6 K/mm3 (0.1-0.6); Monocytes Percent Auto 10.4 % (2.6-8.5); Neutrophils Absolute Auto 3.9 K/mm3 (1.3-6.7); Platelet Count Result 265 k/mm3 (150-375); Red Blood Count 2.63 M/mm3 (4.6-6.20); Red Cell Distribution Width 15.9 % (11.5-14.5); White Blood Count 5.3 K/mm3 (4.5-10.0)
[2023-12-21 07:15] LABS: Alanine Aminotransferase 12 U/L (6-50); Albumin Level 3.4 g/dL (3.5-5.1); Alkaline Phosphatase 58 U/L (38-126); Anion Gap 3 mmol/L (8-16); Aspartate Amino Transferase 21 U/L (17-59); Bilirubin,Total 0.3 mg/dL (0.2-1.3); Blood Urea Nitrogen 9 mg/dL (9-20); Calcium 8.5 mg/dL (8.4-10.2); Carbon Dioxide 27 mmol/L (22-30); Chloride 99 mmol/L (98-107); Estimated CRCL calculation 62 ml/min; Estimated Glomerular Filt Rate > 60; Glucose 95 mg/dL (65-110); Potassium 3.7 mmol/L (3.4-5.0); Sodium 129 mmol/L (137-145)
[2023-12-21 07:30] LABS: INR 1.1; Prothrombin Time 15.1 Seconds (11.1-14.7)
[2023-12-21 07:31] LABS: Partial Thromboplastin Time 29.7 SECONDS (22.3-36.8)
[2023-12-21 07:33] LABS: Fibrinogen 511 mg/dl (215-510)
[2023-12-21 07:36] LABS: Iron 27 ug/dL (49-181)
[2023-12-21 07:39] LABS: D Dimer 1.72 ug/mL (<0.48)
[2023-12-21 07:48] LABS: Percent Iron Saturation 7 % (20-50)
[2023-12-21 09:27] LABS: Folic Acid 17.9 ng/mL (2.76->20)
[2023-12-21] MEDS: ROSUVASTATIN 10 MG TABLET 20 MG PO (09:44)
[2023-12-21] MEDS: PANTOPRAZOLE 40 MG TABLET PO (09:44)
[2023-12-21] MEDS: lisinopriL 20 MG TABLET PO (09:44)
[2023-12-21] MEDS: hydroCHLOROthiazide 6.25 MG TABLET 12.5 MG PO (09:44)
--- NOTE | 2023-12-21 14:20 | PDONCCN ---
HPI - Date of Consult Date/Time: 12/21/23 14:20 Requesting Physician: Yony Luna MD Primary Care Provider: Les Mason MD - Consult Narrative Reason for consult: Coagulopathy Narrative: Angel Rojas is a 73 year old male with history of prostate cancer status post radiation, non muscle invasive bladder carcinoma status post TURBT in August 2023, hypertension, hyperlipidemia, and hypothyroidism. He has been in and out of the hospital recently for issues with urinary retention, indwelling catheters, and gross hematuria. Last week, he underwent cystoscopy with clot evacuation and cauterization of the bladder and prostatic urethra. He was on CBI for couple of days and was discharged home though he reports having intermittent pink tinged urine. He has continued to have oozing and bleeding from prostatic urethra despite cauterization and amicar/TXA use. There is no evidence of radiation cystitis, UTI, or cancer relapse. We are consulted for coagulopathy issue. [facility] Medical History: Medical History (Last Reviewed 12/19/23 @ 10:08 by Anibal Goff MD) Adenomatous colon polyp Anemia in chronic kidney disease Anxiety disorder due to medical condition Bladder cancer Onset Date: 08/2023 Noninvasive low-grade papillary urothelial carcinoma. Bulbous urethral stricture Gastroesophageal reflux disease Hyperlipidemia Hypertension Hypothyroidism Osteomyelitis of mandible Prostate cancer Status post radiation. Pure hypercholesterolemia Tongue cancer Status post radiation. Surgical History: Surgical History (Last Reviewed 12/19/23 @ 10:08 by Anibal Goff MD) History of colonoscopy with polypectomy History of cystoscopy History of hernia repair History of mandibular surgery History of transurethral resection of bladder tumor (TURBT) Family History: Family History (Last Reviewed 12/19/23 @ 10:08 by Anibal Goff MD) Father Diabetes mellitus Hypertension Acute angina Coronary artery disease Heart disease Mother Congestive heart failure Diabetes mellitus Sibling Myocardial infarction Heart disease Sibling No problems noted. - Social History Social History: Social History (Last Reviewed 12/19/23 @ 10:08 by Anibal Goff MD) Alcohol Use: Alcohol intake: current Drinks per week: 20 Alcohol use details: 3 BEERS/DAY Substance Use: Substance use: never Substance use type: does not use Others: Spiritual care concerns: No Living Arrangements: Living arrangements: with family Oppucation/Education: Occupation/Education: retired Smoking Status: Smoking status: Never smoker Second hand tobacco smoke exposure: No Social Determinants of Health: Do You Feel Safe in your Home?: Yes Has the Lack of Transportation Kept You From Medical Appointments or From Getting Medications?: No Within the Past 12 Months, Were You Worried Whether Your Food Would Run Out Before You Got Money to Buy More?: Never True What is Your Housing Situation Today?: I Have Housing Are You Worried That in the Next 2 Months, You May Not Have Your Own Housing to Live In?: Decline to Answer Do You Have Trouble Paying Your Heating Or Electricity Bill?: Decline to Answer Do You Have Trouble Paying For Medicines?: Decline to Answer Are You Currently Unemployed and Looking for Work?: Decline to Answer Highest Level of Education Completed: Master's Degree or Higher Do You Have Trouble With Childcare or the Care of a Family Member?: No Exam - Vital Signs Vital Signs - 24 hr 12/20/23 21:12 12/20/23 20:00 12/21/23 05:24 Temperature 36.8 C 36.9 C Pulse Rate 80 70 Respiratory Rate 13 14 Blood Pressure 122/61 94/55 L Pulse Oximetry 97 97 Oxygen Delivery Room Air 12/21/23 08:00 Temperature Pulse Rate Respiratory Rate Blood Pressure Pulse Oximetry Oxygen Delivery Room
[2023-12-21] MEDS: HYOSCYAMINE SULFATE 0.125 MG TABLET PO ×2 (14:22→20:38)
[2023-12-21] MEDS: DOCUSATE SODIUM 100 MG CAPSULE PO (14:25)
[2023-12-21] MEDS: polyethylene glycoL 3350 17 GM POWD.PACK PO (14:25)
--- NOTE | 2023-12-21 14:25 | PM.IMPN ---
Progress Note: A&P Assessment and Plan (1) Abnormal urinalysis: Code(s): R82.90 - Unspecified abnormal findings in urine Status: Acute Assessment and Plan: urine culture from clean catch, Lindsey port and catheter showed no bacterial growth (2) Chronic anemia: Code(s): D64.9 - Anemia, unspecified Status: Acute Assessment and Plan: iron studies showed iron 27, TIBC 376, 7% saturation, ferritin 27.10 hematology to order iron infusion (3) H/O prostate cancer: Code(s): Z85.46 - Personal history of malignant neoplasm of prostate Status: Acute (4) Hematuria: Qualifiers: Hematuria type: unspecified type Qualified Code(s): R31.9 - Hematuria, unspecified Code(s): R31.9 - Hematuria, unspecified Status: Acute Assessment and Plan: unsure source/cause no signs of upper urinary tract bleeding (normal CT-abd/pelvis w/wo in 06/13, normal renal u/s this admission and clear efflux of urine from ureters on cysto. x2). He has history of bladder cancer but no recurrence identified on cysto. x2. He also has history of pelvic radiation for prostate cancer but no signs of radiation cystitis on cysto. x2. 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 Uro teach him Intermittent Self Catheterization (ISC) - better chcf option for emptying bladder. Plan FEN: Saline lock IV GI prophylaxis: Not indicated DVT prophylaxis: SCDs, hold pharmacological prophylaxis Lines: Peripheral IV, 3 way Lindsey removed on 12/18 Code Status: Full code Dispo: Stable. Subjective Date/time seen: 12/21/23 14:25 Interval history: Patient denies pain this morning, in no distress. Catheter continues with red urine draining. Sodium improving on NACL. Hematology consulted and pending labs. Urology following. Continue to monitor and plan for d/c when cleared by specialists. Review of Systems Review of Systems: All systems reviewed & are unremarkable except as noted in HPI and below (Subjective) Exam Narrative: General: Well-developed, nontoxic-appearing gentleman supine in bed in no acute distress. HEENT: PERRLA, EOMI. Neck: Supple. Respiratory: Lungs are clear to auscultation bilaterally. Cardiovascular: RRR Gastrointestinal: Abdomen is soft, nontender, and nondistended with positive bowel sounds. Genitourinary: Lindsey catheter draining red, dark colored urine. Skin: Warm and dry. Extremities: No cyanosis, clubbing, or edema. Radial and pedal pulses intact. Neurological: A&O x3. Cranial nerves 2-12 are grossly intact. Psychiatric: Appropriate mood. Objective Data Vital Signs Vital Signs: Vital Signs - 24 hr 12/20/23 21:12 12/20/23 20:00 12/21/23 05:24 Temperature 98.2 F 98.5 F Pulse Rate 80 70 Respiratory Rate 13 14 Blood Pressure 122/61 94/55 L Pulse Oximetry 97 97 Oxygen Delivery Room Air 12/21/23 08:00 Temperature Pulse Rate Respiratory Rate Blood Pressure Pulse Oximetry Oxygen Delivery Room Air Intake/Output Intake/Output: Intake & Output 12/18/23 12/19/23 12/20/23 12/21/23 23:59 23:59 23:59 23:59 Intake Total 1340 8880 2124 1440 Output Total 1975 4250 04423 [address] [place] [id number] [phone] Meds/Results Medications: Active Medications Generic Name Dose Route Start Last Admin Trade Name Freq PRN Reason Stop Dose Admin Acetaminophen 650 mg 12/18/23 17:28 12/20/23 09:10 Acetaminophen 325 Mg Tablet PO 650 mg Q4H PRN Administration Pain Rated 1-3 Cephalexin HCl 500 mg 12/16/23 22:40 12/21/23 13:51 Cephalexin 500 Mg Capsule PO 500 mg Q8HR ANNIE Administration Docusate Sodi
[2023-12-21 14:58] LABS: Prostate Specific Antigen 0.1 ng/mL (< OR = 4.0)
[2023-12-21] MEDS: MORPHINE SULFATE (*CRX) 2 MG/ML INJ IV PUSH ×2 (16:00→20:38)
[2023-12-21] MEDS: IRON SUCROSE COMPLEX 500 MG in SODIUM CHLORIDE 0.9% IV 250 ML 79 MG IVPB (16:54)
[2023-12-21] MEDS: FERROUS SULFATE 325 MG TABLET DR PO (16:58)
[2023-12-21] MEDS: SODIUM CHLORIDE 0.9% IV 1,000 ML 100 ML IV CONT (18:50)
[2023-12-21] MEDS: TAMSULOSIN HCL 0.4 MG CAPSULE PO (20:38)
[2023-12-21 21:15] VITALS: BP 106/65; PULSE 88; RESP 20; TEMP 36.8; O2SAT 100
[2023-12-21] MEDS: traMADol HCL (*CRX) 50 MG TABLET PO (21:17)
--- NOTE | 2023-12-21 23:41 | PC.NURSE ---
This pt has been screaming in pain this shift. He reports he is having bladder spasms and sharp pain after trying to have a bowel movement. Pt continued to yell out and moan, even after bladder spasm medications and pain medications were given. Contacted the on-call urologist (Dr Baez) who instructed this nurse to irrigate the catheter. Catheter irrigated per his instructions, and no clots were evacuated. Called the charge nurse and household appliance repairer who also assisted this nurse in irrigating catheter with no clots evacuated. Belly is not hard or distended any more then normal (per pt) and not any more then normal based on this nurse having pt on previous night. Pt continues to complain and yell out with bladder spasms. Pt does report they are starting to seem a little less intense. Catheter is flowing and CBI has been resumed after being briefly stopped for irrigation. Urine continues to be red, however no clots have been present.
[2023-12-22] MEDS: HYOSCYAMINE SULFATE 0.125 MG TABLET PO ×5 (00:07→21:46)
[2023-12-22] MEDS: MORPHINE SULFATE (*CRX) 2 MG/ML INJ IV PUSH ×2 (00:07→20:04)
[2023-12-22] MEDS: SODIUM CHLORIDE 0.9% IV 1,000 ML 100 ML IV CONT ×3 (05:35→20:04)
[2023-12-22] MEDS: traMADol HCL (*CRX) 50 MG TABLET PO ×3 (05:35→23:12)
[2023-12-22] MEDS: CEPHALEXIN 500 MG CAPSULE PO ×2 (05:35→13:21)
[2023-12-22] MEDS: LEVOTHYROXINE SODIUM 112 MCG TABLET PO (05:36)
[2023-12-22 06:05] VITALS: BP 103/57; PULSE 71; RESP 20; TEMP 36.1; O2SAT 99
[2023-12-22 06:30] LABS: Basophils Percent Auto 0.7 % (0.2-1.2); Eosinophils Absolute Auto 0.3 K/mm3 (0-0.3); Eosinophils Percent Auto 5.3 % (0-4.4); Hematocrit 21.8 % (42.0-52.0); Hemoglobin 7.1 g/dL (14.0-18.0); Immature Granulocyte Absolute 0.04 K/mm3 (0.00-0.031); Immature Granulocyte Percent A 0.7 % (0-0.5); Lymphocytes Absolute Auto 0.58 K/mm3 (0.9-3.2); Lymphocytes Percent Auto 9.6 % (18.3-44.2); Mean Corpuscular HGB Conc 32.6 g/dl (32-36); Mean Corpuscular Volume 85.8 fl (80-100); Mean Platelet Volume 8.6 fl (7.4-10.4); Monocytes Absolute Auto 0.6 K/mm3 (0.1-0.6); Monocytes Percent Auto 10.4 % (2.6-8.5); Neutrophils Absolute Auto 4.4 K/mm3 (1.3-6.7); Neutrophils Percent Auto 73.3 % (45.5-73.1); Platelet Count Result 244 k/mm3 (150-375); Red Blood Count 2.54 M/mm3 (4.6-6.20)
[2023-12-22 06:40] LABS: Alanine Aminotransferase 12 U/L (6-50); Albumin Level 3.3 g/dL (3.5-5.1); Alkaline Phosphatase 55 U/L (38-126); Anion Gap 5 mmol/L (8-16); Aspartate Amino Transferase 22 U/L (17-59); Bilirubin,Total 0.3 mg/dL (0.2-1.3); Blood Urea Nitrogen 10 mg/dL (9-20); Calcium 8.4 mg/dL (8.4-10.2); Carbon Dioxide 25 mmol/L (22-30); Chloride 103 mmol/L (98-107); Estimated CRCL calculation 69 ml/min; Estimated Glomerular Filt Rate > 60; Glucose 90 mg/dL (65-110); Potassium 3.6 mmol/L (3.4-5.0); Sodium 133 mmol/L (137-145)
[2023-12-22] MEDS: PANTOPRAZOLE 40 MG TABLET PO (08:20)
[2023-12-22] MEDS: FERROUS SULFATE 325 MG TABLET DR PO ×2 (08:20→16:16)
[2023-12-22] MEDS: lisinopriL 20 MG TABLET PO (08:20)
[2023-12-22] MEDS: hydroCHLOROthiazide 6.25 MG TABLET 12.5 MG PO (08:20)
[2023-12-22] MEDS: ROSUVASTATIN 10 MG TABLET 20 MG PO (08:20)
[2023-12-22 08:25] VITALS: BP 131/71; PULSE 84; O2SAT 100
[2023-12-22 13:40] VITALS: BP 109/56; PULSE 87; RESP 16; TEMP 36.9; O2SAT 98
--- NOTE | 2023-12-22 16:15 | WPDUROPN2 ---
Progress Note: A&P Assessment and Plan (1) Hematuria: Code(s): R31.9 - Hematuria, unspecified Status: Acute Assessment and Plan: Assessment and Plan (1) History of bladder cancer: ?Code(s): Z85.51 - Personal history of malignant neoplasm of bladder ?Status:?Acute (2) H/O prostate cancer: ?Code(s): Z85.46 - Personal history of malignant neoplasm of prostate ?Status:?Acute (3) Hematuria: ?Code(s): R31.9 - Hematuria, unspecified ?Status:?Acute ?Assessment and Plan: 1. 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 Will arrange urodynamics immediately following discharge. I'm going to have my office come to his room and teach him Intermittent Self Catheterization (ISC) - better moth exterminator option for emptying bladder.2. Persistent hematuria: This is very difficult for me to explain.? He has no signs of upper urinary tract bleeding (normal CT-abd/pelvis w/wo in 06/13, normal renal u/s this admission and clear efflux of urine from ureters on cysto. x2).? He has history of bladder cancer but no recurrence identified on cysto. x2.? He also has history of pelvic radiation for prostate cancer but no signs of radiation cystitis on cysto. x2.? Bleeding persists despite extensive cauterization slight oozing from prostatic urethra and despite Amicar and Tranexamic acid (TXA).? I've considered he may have unrecognized coagulopathy.? If bleeding recurs after cauterization yesterday may consider hematology consultation. 12/22/2023 Urine fairly clear on normal saline CBI at moderate drip Appreciate hematology input and recommendations re: evaluation coagulopathy Goal: possibly home this weekend with indwelling catheter / voiding trial with Intermittent Self Catheterization (ISC) next week.? Pt is hesitant to be discharged and prefers to stay. Pt was instructed in ISC during this hospitalization and supplied with catheters. Subjective Subjective Date/Time Seen: 12/22/23 16:15 Interval history: Patient reports bladder spasms overnight which resolved on their own. Had catheter irrigated overnight but this did not help the spasms. He states he is very hesitant to go home this weekend as he is worried about having issues with blood in his urine. Review of Systems Cardiovascular: Cardiovascular: Denies chest pain, Denies lightheadedness, Denies palpitations and Denies dyspnea Respiratory: Respiratory: Denies dyspnea Gastrointestinal: Gastrointestinal: Denies diarrhea, Denies nausea and Denies vomiting Genitourinary: Genitourinary: Denies hematuria and Denies dysuria Endocrine: Endocrine: Denies palpitations Exam Const: General: comfortable and no acute distress Eyes: General: appearance normal, both eyes and all related structures Resp: Effort & Inspection: normal respiratory effort Cardio: Rate: regular rate GI: Inspection: non-distended GI Palp: Yes Soft to palpation : Other: 3-way catheter in place with moderate drip CBI draining clear pinkish-orange urine with some small clots in the bag. Hand irrigated novoa with return of mild amount of clot. Reconnected CBI to moderate drip. Urinary Catheter: Urinary Catheter: patent and draining Psych: Mental Status: mental status grossly normal Objective Data Vital Signs Vital Signs: Vital Signs - 24 hr 12/21/23 20:00 12/21/23 21:15 12/22/23 06:05 Temperature 36.8 C 36.1 C L Pulse Rate 88 71 Respiratory Rate 20 20 Blood Pressure 106/65 103/57 L Pulse Oximetry 100 99 Oxygen Delivery Room Air 12/22/23 08:25 12/22/23 13:40 Temperature 36.9 C Pulse Rate 84 87 Respiratory Rate 16 Blood Pressure 131/71 109/56 L Pulse Oximetry 100 98 Oxygen Delivery Intake/Output Intake/Output: Intake & Output 12/19/23 12/20/23 12/21/23 12/22/23 23:59 23:59 23:59 23:59 Intake Total 8818 2120 2680 2590 Output Total 8529 38436 6239 7232
--- NOTE | 2023-12-22 18:37 | PM.IMPN ---
Progress Note: A&P Assessment and Plan (1) Hematuria: Qualifiers: Hematuria type: unspecified type Qualified Code(s): R31.9 - Hematuria, unspecified Code(s): R31.9 - Hematuria, unspecified Status: Acute Assessment and Plan: unclear etiology; no signs of upper urinary tract bleeding (normal CT-abd/pelvis w/wo in 06/13, normal renal u/s this admission and clear efflux of urine from ureters on cysto. x2). He has history of bladder cancer but no recurrence identified on cysto. x2. He also has history of pelvic radiation for prostate cancer but no signs of radiation cystitis on cysto. 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 as there is absolutely no outlet obstruction on cystoscopy Uro teach him Intermittent Self Catheterization (ISC) - better chuck wagon cook option for emptying bladder, should mitigate bladder spasms (4) Abnormal urinalysis: Code(s): R82.90 - Unspecified abnormal findings in urine Status: Acute Assessment and Plan: urine culture from clean catch, Lindsey port and catheter showed no bacterial growth 3/2 d/c Keflex (5) H/O prostate cancer: Code(s): Z85.46 - Personal history of malignant neoplasm of prostate Status: Acute Assessment and Plan: s/p RT Subjective Date/time seen: 12/22/23 18:37 Review of Systems Review of Systems: All systems reviewed & are unremarkable except as noted in HPI and below (Subjective) Exam Narrative: General: Well-developed, nontoxic-appearing gentleman supine in bed in no acute distress. HEENT: PERRLA. Oral mucosa pink. Neck: No JVD. Respiratory: Lungs are clear to auscultation bilaterally. Cardiovascular: RRR. NL S1,2. No audible murmur. Gastrointestinal: Abdomen is soft, nontender, and nondistended with positive bowel sounds. Genitourinary: Lindsey catheter draining pink urine. Skin: Warm and dry. Extremities: No cyanosis, clubbing, or edema. Radial and pedal pulses intact. Neurological: A&O x3. Cranial nerves 2-12 are grossly intact. Psychiatric: Appropriate mood. Objective Data Vital Signs Vital Signs: Vital Signs - 24 hr 12/21/23 20:00 12/21/23 21:15 12/22/23 06:05 Temperature 98.3 F 97 F L Pulse Rate 88 71 Respiratory Rate 20 20 Blood Pressure 106/65 103/57 L Pulse Oximetry 100 99 Oxygen Delivery Room Air 12/22/23 08:25 12/22/23 13:40 Temperature 98.4 F Pulse Rate 84 87 Respiratory Rate 16 Blood Pressure 131/71 109/56 L Pulse Oximetry 100 98 Oxygen Delivery Intake/Output Intake/Output: Intake & Output 12/19/23 12/20/23 12/21/23 12/22/23 23:59 23:59 23:59 23:59 Intake Total 8897 2124 2680 2590 Output Total 7750 67654 6285 1100 Balance 4901 -[id number] -9257 1490 Meds/Results Medications: Active Medications Generic Name Dose Route Start Last Admin Trade Name Freq PRN Reason Stop Dose Admin Acetaminophen 650 mg 12/18/23 17:28 12/20/23 09:10 Acetaminophen 325 Mg Tablet PO 650 mg Q4H PRN Administration Pain Rated 1-3 Cephalexin HCl 500 mg 12/16/23 22:40 12/22/23 13:21 Cephalexin 500 Mg Capsule PO 500 mg Q8HR ANNIE Administration Docusate Sodium 100 mg 12/21/23 10:36 12/21/23 14:25 Docusate Sodium 100 Mg Capsule PO 100 mg Q12H PRN Administration Constipation Ferrous Sulfate 325 mg 12/21/23 17:00 12/22/23 16:16 Ferrous Sulfate [address] PO 325 mg BID ANNIE Administration Hydrochlorothiazide 12.5 mg 12/17/23 09:00 12/22/23 08:20
[2023-12-22] MEDS: ACETAMINOPHEN 325 MG TABLET 650 MG PO (20:03)
[2023-12-22] MEDS: TAMSULOSIN HCL 0.4 MG CAPSULE PO (20:03)
[2023-12-22 21:20] VITALS: BP 107/62; PULSE 80; RESP 20; TEMP 36.8; O2SAT 97
[2023-12-22] MEDS: MORPHINE SULFATE (*CRX) 4 MG/ML INJ IV PUSH (22:31)
[2023-12-23] VITALS (9 sets, daily range): BP systolic 112–176; BP diastolic 62–82; PULSE 70–103; RESP 18–20; TEMP 36.3–38.3; O2SAT 92–100
[2023-12-23] MEDS: MORPHINE SULFATE (*CRX) 2 MG/ML INJ IV PUSH ×3 (02:09→20:05)
[2023-12-23] MEDS: HYOSCYAMINE SULFATE 0.125 MG TABLET PO ×5 (02:24→21:40)
[2023-12-23] MEDS: LEVOTHYROXINE SODIUM 112 MCG TABLET PO (06:27)
[2023-12-23] MEDS: traMADol HCL (*CRX) 50 MG TABLET PO ×4 (06:27→21:04)
[2023-12-23 06:28] LABS: Basophils Absolute Auto 0.1 K/mm3 (0.0-0.1); Eosinophils Absolute Auto 0.4 K/mm3 (0-0.3); Eosinophils Percent Auto 7.5 % (0-4.4); Immature Granulocyte Absolute 0.02 K/mm3 (0.00-0.031); Immature Granulocyte Percent A 0.4 % (0-0.5); Lymphocytes Percent Auto 17.3 % (18.3-44.2); Mean Corpuscular HGB Conc 31.4 g/dl (32-36); Mean Corpuscular Hemoglobin 27.6 pg (26-34); Mean Corpuscular Volume 87.9 fl (80-100); Mean Platelet Volume 8.9 fl (7.4-10.4); Monocytes Absolute Auto 0.6 K/mm3 (0.1-0.6); Monocytes Percent Auto 12.3 % (2.6-8.5); Neutrophils Absolute Auto 3.2 K/mm3 (1.3-6.7); Neutrophils Percent Auto 61.5 % (45.5-73.1); Platelet Count Result 264 k/mm3 (150-375); Red Blood Count 2.39 M/mm3 (4.6-6.20); Red Cell Distribution Width 16.6 % (11.5-14.5); White Blood Count 5.2 K/mm3 (4.5-10.0)
[2023-12-23 06:32] LABS: Hemoglobin 6.6 g/dL (14.0-18.0)
[2023-12-23 06:43] LABS: Alanine Aminotransferase 12 U/L (6-50); Albumin Level 3.1 g/dL (3.5-5.1); Alkaline Phosphatase 58 U/L (38-126); Anion Gap 4 mmol/L (8-16); Aspartate Amino Transferase 22 U/L (17-59); Bilirubin,Total 0.3 mg/dL (0.2-1.3); Blood Urea Nitrogen 9 mg/dL (9-20); Calcium 8.2 mg/dL (8.4-10.2); Carbon Dioxide 26 mmol/L (22-30); Chloride 105 mmol/L (98-107); Estimated CRCL calculation 69 ml/min; Estimated Glomerular Filt Rate > 60; Glucose 80 mg/dL (65-110); Potassium 3.6 mmol/L (3.4-5.0); Sodium 135 mmol/L (137-145)
[2023-12-23] MEDS: SODIUM CHLORIDE 0.9% IV 250 ML 30 ML IV CONT (08:26)
[2023-12-23] MEDS: PANTOPRAZOLE 40 MG TABLET PO (08:27)
[2023-12-23] MEDS: ROSUVASTATIN 10 MG TABLET 20 MG PO (08:27)
[2023-12-23] MEDS: FERROUS SULFATE 325 MG TABLET DR PO ×2 (08:27→16:23)
[2023-12-23] MEDS: lisinopriL 20 MG TABLET PO (08:27)
--- NOTE | 2023-12-23 11:19 | PM.IMPN ---
Progress Note: A&P Assessment and Plan (1) Hematuria: Qualifiers: Hematuria type: unspecified type Qualified Code(s): R31.9 - Hematuria, unspecified Code(s): R31.9 - Hematuria, unspecified Status: Acute Assessment and Plan: unclear etiology; no signs of upper urinary tract bleeding (normal CT-abd/pelvis w/wo in 06/13, normal renal u/s this admission and clear efflux of urine from ureters on cysto. x2). He has history of bladder cancer but no recurrence identified on cysto. x2. He also has history of pelvic radiation for prostate cancer but no signs of radiation cystitis on cysto. 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 as there is absolutely no outlet obstruction on cystoscopy Uro teach him Intermittent Self Catheterization (ISC) - better skilled nursing option for emptying bladder, should mitigate bladder spasms (4) Abnormal urinalysis: Code(s): R82.90 - Unspecified abnormal findings in urine Status: Acute Assessment and Plan: urine culture from clean catch, Lindsey port and catheter showed no bacterial growth 3/2 d/c Keflex (5) H/O prostate cancer: Code(s): Z85.46 - Personal history of malignant neoplasm of prostate Status: Acute Assessment and Plan: s/p RT Subjective Date/time seen: 12/23/23 11:19 Interval history: No bladder spasms this morning. Tolerated diet. Urine darker red in Lindsey receiving 1 unit of blood due to drop in H&H overnight. Denied chest pain or shortness of breath. Denied abdominal pain or nausea. Review of Systems Review of Systems: All systems reviewed & are unremarkable except as noted in HPI and below (Subjective) Exam Narrative: General: Well-developed, nontoxic-appearing gentleman supine in bed in no acute distress. HEENT: PERRLA. Oral mucosa pink. Neck: No JVD. Respiratory: Lungs are clear to auscultation bilaterally. Cardiovascular: RRR. NL S1,2. No audible murmur. Gastrointestinal: Abdomen is soft, nontender, and nondistended with positive bowel sounds. Genitourinary: Lindsey catheter draining dark red urine. Skin: Warm and dry. Extremities: No cyanosis, clubbing, or edema. Radial and pedal pulses intact. Neurological: A&O x3. Cranial nerves 2-12 are grossly intact. Psychiatric: Appropriate mood. Objective Data Vital Signs Vital Signs: Vital Signs - 24 hr 12/22/23 13:40 12/22/23 21:20 12/23/23 05:30 Temperature 98.4 F 98.3 F 97.4 F L Pulse Rate 87 80 70 Respiratory Rate 16 20 18 Blood Pressure 109/56 L 107/62 114/67 Pulse Oximetry 98 97 95 12/23/23 08:00 12/23/23 09:41 12/23/23 09:57 Temperature 97.7 F 97.6 F 97.5 F L Pulse Rate 88 91 85 Respiratory Rate 20 20 20 Blood Pressure 120/62 122/64 126/63 Pulse Oximetry 96 92 100 12/23/23 10:57 Temperature 97.9 F Pulse Rate 76 Respiratory Rate 20 Blood Pressure 112/64 Pulse Oximetry 95 Intake/Output Intake/Output: Intake & Output 12/20/23 12/21/23 12/22/23 12/23/23 23:59 23:59 23:59 23:59 Intake Total 2124 2680 4030 580 Output Total [address] [facility] -[id number] [phone] -152 Meds/Results Medications: Active Medications Generic Name Dose Route Start Last Admin Trade Name Freq PRN Reason Stop Dose Admin Acetaminophen 650 mg 12/18/23 17:28 12/22/23 20:03 Acetaminophen 325 Mg Tablet PO 650 mg Q4H PRN Administration Pain Rated 1-3 Docusate Sodium 100 mg 12/21/23 10:36
[2023-12-23] MEDS: SENNOSIDES 8.6 MG TABLET PO (12:30)
--- NOTE | 2023-12-23 12:43 | WPDUROPN2 ---
Progress Note: A&P Assessment and Plan (1) History of bladder cancer: Code(s): Z85.51 - Personal history of malignant neoplasm of bladder Status: Acute (2) Abnormal urinalysis: Code(s): R82.90 - Unspecified abnormal findings in urine Status: Acute (3) H/O prostate cancer: Code(s): Z85.46 - Personal history of malignant neoplasm of prostate Status: Acute (4) Hematuria: Qualifiers: Hematuria type: gross Qualified Code(s): R31.0 - Gross hematuria Code(s): R31.9 - Hematuria, unspecified Status: Acute Plan Urine fairly clear on normal saline CBI at slow to moderate drip Transfuse prn if Hgb <7. Receiving 1 unit pRBCs today for drop in Hgb overnight Appreciate hematology input and recommendations re: evaluation coagulopathy Goal: possibly home this upcoming week with indwelling catheter / voiding trial with Intermittent Self Catheterization (ISC) next week.? Pt is hesitant to be discharged and prefers to stay. Pt was instructed in ISC during this hospitalization and supplied with catheters. Subjective Subjective Date/Time Seen: 12/23/23 12:43 Interval history: Pt with drop in hemoglobin this morning to 6.6. Receiving 1 unit pRBCs. Eating lunch and in good spirits. Novoa clear pink with [id number] drip CBI. Review of Systems Cardiovascular: Cardiovascular: Denies chest pain, Denies lightheadedness, Denies palpitations and Denies dyspnea Respiratory: Respiratory: Denies dyspnea Gastrointestinal: Gastrointestinal: Denies diarrhea, Denies nausea and Denies vomiting Genitourinary: Genitourinary: Denies hematuria and Denies dysuria Endocrine: Endocrine: Denies palpitations Exam Const: General: comfortable and no acute distress Neck: Neck: supple Resp: Effort & Inspection: normal respiratory effort Cardio: Rate: regular rate : Other: 20 Citizen [place] 3-way novoa in place draining clear pink tinged urine on [id number] rate CBI. Hand irrigated Novoa with return of clear pink tinged urine without clots. Psych: Mental Status: mental status grossly normal Objective Data Vital Signs Vital Signs: Vital Signs - 24 hr 12/22/23 13:40 12/22/23 21:20 12/23/23 05:30 Temperature 36.9 C 36.8 C 36.3 C L Pulse Rate 87 80 70 Respiratory Rate 16 20 18 Blood Pressure 109/56 L 107/62 114/67 Pulse Oximetry 98 97 95 12/23/23 08:00 12/23/23 09:41 12/23/23 09:57 Temperature 36.5 C 36.4 C 36.4 C L Pulse Rate 88 91 85 Respiratory Rate 20 20 20 Blood Pressure 120/62 122/64 126/63 Pulse Oximetry 96 92 100 12/23/23 10:57 12/23/23 11:57 Temperature 36.6 C 36.9 C Pulse Rate 76 76 Respiratory Rate 20 20 Blood Pressure 112/64 136/69 Pulse Oximetry 95 100 Intake/Output Intake/Output: Intake & Output 12/20/23 12/21/23 12/22/23 12/23/23 23:59 23:59 23:59 23:59 Intake Total 2124 2680 4030 580 Output Total 18963 6238 8273 2184 [facility] -[id number] [phone] -198 Meds/Results Medications: Active Medications Generic Name Dose Route Start Last Admin Trade Name Brysonq PRN Reason Stop Dose Admin Acetaminophen 650 mg 12/18/23 17:28 12/22/23 20:03 Acetaminophen 325 Mg Tablet PO 650 mg Q4H PRN Administration Pain Rated 1-3 Docusate Sodium 100 mg 12/21/23 10:36 12/21/23 14:25 Docusate Sodium 100 Mg Capsule PO 100 mg Q12H PRN Administration Constipation Ferrous Sulfate 325 mg 12/21/23 17:00 12/23/23 08:27 Ferrous Sulfate [address] PO 325 mg BID ANNIE Administration Hyoscyamine 0.125 mg 12/19/23 22:04 12/23/23 11:14 Hyoscyamine Sulfate 0.125 Mg Tablet PO 0.125 mg Q4H PRN Administration Bladder Spasm Sodium Chloride 250 mls @ 30 mls/hr 12/23/23 06:47 12/23/23 08:26 Normal Saline Iv IV CONT 12/23/23 15:06 30 mls/hr .Q8H20M STA Administration Levothyroxine Sodium 112 mcg 12/17/23 06:30 12/23/23 06:27 Levothyroxine Sodium 112 Mcg Tablet PO 112 mcg DAILY@0630
[2023-12-23 15:05] LABS: Hematocrit 24.5 % (42.0-52.0); Hemoglobin 7.9 g/dL (14.0-18.0)
[2023-12-23] MEDS: ACETAMINOPHEN 325 MG TABLET 650 MG PO (21:04)
[2023-12-23] MEDS: TAMSULOSIN HCL 0.4 MG CAPSULE PO (21:05)
[2023-12-23] MEDS: MORPHINE SULFATE (*CRX) 4 MG/ML INJ IV PUSH (23:54)
[2023-12-24] MEDS: diazePAM (*CRX) 2 MG TABLET 1 MG PO (00:59)
[2023-12-24] MEDS: traMADol HCL (*CRX) 50 MG TABLET PO ×2 (01:00→16:03)
[2023-12-24] MEDS: HYOSCYAMINE SULFATE 0.125 MG TABLET PO ×5 (01:00→20:08)
[2023-12-24] MEDS: MORPHINE SULFATE (*CRX) 4 MG/ML INJ IV PUSH ×3 (02:10→20:08)
[2023-12-24 05:25] VITALS: BP 113/63; PULSE 95; RESP 18; TEMP 37.3; O2SAT 93
[2023-12-24] MEDS: LEVOTHYROXINE SODIUM 112 MCG TABLET PO (05:57)
[2023-12-24 07:13] LABS: Basophils Percent Auto 0.3 % (0.2-1.2); Eosinophils Percent Auto 0.1 % (0-4.4); Hematocrit 22.5 % (42.0-52.0); Hemoglobin 7.3 g/dL (14.0-18.0); Immature Granulocyte Absolute 0.04 K/mm3 (0.00-0.031); Immature Granulocyte Percent A 0.3 % (0-0.5); Lymphocytes Percent Auto 5.1 % (18.3-44.2); Mean Corpuscular HGB Conc 32.4 g/dl (32-36); Mean Corpuscular Hemoglobin 28.6 pg (26-34); Mean Corpuscular Volume 88.2 fl (80-100); Mean Platelet Volume 8.8 fl (7.4-10.4); Monocytes Absolute Auto 0.7 K/mm3 (0.1-0.6); Monocytes Percent Auto 6.2 % (2.6-8.5); Neutrophils Absolute Auto 10.4 K/mm3 (1.3-6.7); Platelet Count Result 282 k/mm3 (150-375); Red Blood Count 2.55 M/mm3 (4.6-6.20); Red Cell Distribution Width 16.9 % (11.5-14.5); White Blood Count 11.8 K/mm3 (4.5-10.0)
[2023-12-24 07:42] LABS: Alanine Aminotransferase 12 U/L (6-50); Albumin Level 3.1 g/dL (3.5-5.1); Alkaline Phosphatase 54 U/L (38-126); Anion Gap 5 mmol/L (8-16); Aspartate Amino Transferase 22 U/L (17-59); Bilirubin,Total 0.4 mg/dL (0.2-1.3); Blood Urea Nitrogen 15 mg/dL (9-20); Calcium 8.3 mg/dL (8.4-10.2); Carbon Dioxide 25 mmol/L (22-30); Chloride 102 mmol/L (98-107); Estimated CRCL calculation 49 ml/min; Estimated Glomerular Filt Rate > 60; Glucose 106 mg/dL (65-110); Potassium 3.7 mmol/L (3.4-5.0); Sodium 132 mmol/L (137-145)
[2023-12-24] MEDS: ROSUVASTATIN 10 MG TABLET 20 MG PO (08:34)
[2023-12-24] MEDS: lisinopriL 20 MG TABLET PO (08:35)
[2023-12-24] MEDS: PANTOPRAZOLE 40 MG TABLET PO (08:35)
[2023-12-24] MEDS: FERROUS SULFATE 325 MG TABLET DR PO ×2 (08:35→16:03)
--- NOTE | 2023-12-24 11:13 | PCDIET ---
pt sceened in for low BMI, noted wt was inaccurate. Reweigh shows pt wt is stable. Will send Ensure Enlive daily per pt request. Noted BMI is not low.
--- NOTE | 2023-12-24 11:59 | PC.NURSE ---
Addendum entered by Mony Tadeo RN 12/24/23 12:03: addendum because I hit save on accident before note was finished. previous note to say. pt moaning very loudly in room. drain tube in novoa had no urine in it. flushed novoa. got out 5-6 small clots. immediately novoa tube became patent and red urine started draining. pt states he felt immediate relief once novoa started to drain. Original Note: pt moaning very loudly in room. flushed novoa. got out 5-6 small clots
--- NOTE | 2023-12-24 14:33 | PM.IMPN ---
Progress Note: A&P Assessment and Plan (1) Hematuria: Qualifiers: Hematuria type: unspecified type Qualified Code(s): R31.9 - Hematuria, unspecified Code(s): R31.9 - Hematuria, unspecified Status: Acute Assessment and Plan: unclear etiology; no signs of upper urinary tract bleeding (normal CT-abd/pelvis w/wo in 06/13, normal renal u/s this admission and clear efflux of urine from ureters on cysto. x2). He has history of bladder cancer but no recurrence identified on cysto. x2. He also has history of pelvic radiation for prostate cancer but no signs of radiation cystitis on cysto. 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 as there is absolutely no outlet obstruction on cystoscopy Uro teach him Intermittent Self Catheterization (ISC) - 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 Currently with heating pad which is helping somewhat. He reports having more clots, urology following. Catheter continues to drain red colored urine. Sodium improving, H&H remained stable overnight post 1 unit PRBC, will continue to closely monitor. Review of Systems Review of Systems: All systems reviewed & are unremarkable except as noted in HPI and below (Subjective) Exam Narrative: General: Well-developed, nontoxic-appearing gentleman sitting up in bed in no acute distress. HEENT: PERRLA. EOMI Respiratory: Lungs are clear to auscultation bilaterally. Cardiovascular: RRR. Gastrointestinal: Abdomen is soft, nontender, and nondistended with positive bowel sounds. Genitourinary: Lindsey catheter draining dark red urine. Skin: Warm and dry. Extremities: No cyanosis, clubbing, or edema. Radial and pedal pulses intact. Neurological: A&O x3. Cranial nerves 2-12 are grossly intact. Psychiatric: Appropriate mood. Objective Data Vital Signs Vital Signs: Vital Signs - 24 hr 12/23/23 16:00 12/23/23 21:15 12/24/23 05:25 Temperature 98.2 F 101 F H 99.1 F Pulse Rate 82 103 H 95 Respiratory Rate 20 18 18 Blood Pressure 132/66 176/82 H 113/63 Pulse Oximetry 93 97 93 Oxygen Delivery 12/24/23 08:00 Temperature Pulse Rate Respiratory Rate Blood Pressure Pulse Oximetry Oxygen Delivery Room Air Intake/Output Intake/Output: Intake & Output 12/21/23 12/22/23 12/23/23 12/24/23 23:59 23:59 23:59 23:59 Intake Total 2680 4030 2260 210 Output Total 6285 3550 3950 2150 Balance -3497 042 -1514 -6768 Meds/Results Medications: Active Medications Generic Name Dose Route Start Last Admin Trade Name Freq PRN Reason Stop Dose Admin Acetaminophen 650 mg 12/18/23 17:28 12/23/23 21:04 Acetaminophen 325 Mg Tablet PO 650 mg Q4H PRN Administration Pain Rated 1-3 Docusate Sodium 100 mg 12/21/23 10:36 12/21/23 14:25 Docusate Sodium 100 Mg Capsule PO 100 mg Q12H PRN Administrati
[2023-12-24 15:59] VITALS: BP 108/64; PULSE 88; RESP 18; TEMP 37.2; O2SAT 95
[2023-12-24 16:25] LABS: Methylmalonic Acid 88 nmol/L (87-318)
--- NOTE | 2023-12-24 17:26 | WPDUROPN2 ---
Progress Note: A&P Assessment and Plan (1) History of bladder cancer: Code(s): Z85.51 - Personal history of malignant neoplasm of bladder Status: Acute (2) Chronic anemia: Code(s): D64.9 - Anemia, unspecified Status: Acute (3) H/O prostate cancer: Code(s): Z85.46 - Personal history of malignant neoplasm of prostate Status: Acute (4) Hematuria: Qualifiers: Hematuria type: gross Qualified Code(s): R31.0 - Gross hematuria Code(s): R31.9 - Hematuria, unspecified Status: Acute Assessment and Plan: Ongoing, very difficult problem Explored transfer for inpatient hyperbaric oxygen at [facility] or [facility] but inpatient therapy not an option. Await some hematology labs Will plan voiding trial with intermittent catheterization tomorrow, regardless of hematuria status Subjective Subjective Date/Time Seen: 12/24/23 17:26 Interval history: No acute events Review of Systems Review of Systems: All systems reviewed & are unremarkable except as noted in HPI and below Exam Const: General: no acute distress Resp: Effort & Inspection: normal respiratory effort GI: Inspection: non-distended GI Palp: No abdominal tenderness and No Guarding due to palpation present (GI) Auscultation: normal bowel sounds Objective Data Vital Signs Vital Signs: Vital Signs - 24 hr 12/23/23 21:15 12/24/23 05:25 12/24/23 08:00 Temperature 101 F H 99.1 F Pulse Rate 103 H 95 Respiratory Rate 18 18 Blood Pressure 176/82 H 113/63 Pulse Oximetry 97 93 Oxygen Delivery Room Air 12/24/23 15:59 Temperature 99 F Pulse Rate 88 Respiratory Rate 18 Blood Pressure 108/64 Pulse Oximetry 95 Oxygen Delivery Intake/Output Intake/Output: Intake & Output 12/21/23 12/22/23 12/23/23 12/24/23 23:59 23:59 23:59 23:59 Intake Total 2680 4030 2260 210 Output Total 6285 3550 3950 2150 Balance -7525 038 -5811 -7644 Meds/Results Medications: Active Medications Generic Name Dose Route Start Last Admin Trade Name Freq PRN Reason Stop Dose Admin Acetaminophen 650 mg 12/18/23 17:28 12/23/23 21:04 Acetaminophen 325 Mg Tablet PO 650 mg Q4H PRN Administration Pain Rated 1-3 Docusate Sodium 100 mg 12/21/23 10:36 12/21/23 14:25 Docusate Sodium 100 Mg Capsule PO 100 mg Q12H PRN Administration Constipation Ferrous Sulfate 325 mg 12/21/23 17:00 12/24/23 16:03 Ferrous Sulfate [address] PO 325 mg BID ANNIE Administration Hyoscyamine 0.125 mg 12/19/23 22:04 12/24/23 16:03 Hyoscyamine Sulfate 0.125 Mg Tablet PO 0.125 mg Q4H PRN Administration Bladder Spasm Levothyroxine Sodium 112 mcg 12/17/23 06:30 12/24/23 05:57 Levothyroxine Sodium 112 Mcg Tablet PO 112 mcg DAILY@0630 ANNIE Administration Lisinopril 20 mg 12/17/23 09:00 12/24/23 08:35 Lisinopril 20 Mg Tablet PO 20 mg DAILY ANNIE Administration Meclizine HCl 25 mg 12/16/23 22:37 12/19/23 07:52 Meclizine Hcl 25 Mg Tablet PO 25 mg BID PRN Administration dizziness Morphine Sulfate 4 mg 12/23/23 23:34 12/24/23 08:44 Morphine Sulfate (*Crx) 4 Mg/Ml Inj IV PUSH 4 mg Q2H PRN Administration Pain Rated 7-10 Ondansetron HCl 4 mg 12/19/23 10:07 Ondansetron Inj 4 Mg/2 Ml Vial IV PUSH ONCE PRN Nausea Pantoprazole Sodium 40 mg 12/17/23 09:00 12/24/23 08:35 Pantoprazole 40 Mg Tablet PO 40 mg DAILY ANNIE Administration Polyethylene Glycol 17 gm 12/21/23 10:36 12/21/23 14:25 Polyethylene Glycol 3350 17 Gm Powd.Pack PO 17 gm QAM PRN Administration Constipation Rosuvastatin Calcium 20 mg 12/17/23 09:00 12/24/23 08:34 Rosuvastatin 10 Mg Tablet PO 20 mg DAILY ANNIE Administration Tamsulosin HCl 0.4 mg 12/16/23 22:50 12/23/23 21:05 Tamsulosin Hcl 0.4 Mg Capsule PO 0.4 mg HS ANNIE Administration Tramadol HCl 50 mg 12/18/23 17:28 12/24/23 16:03 Tram
[2023-12-24] MEDS: TAMSULOSIN HCL 0.4 MG CAPSULE PO (20:08)
[2023-12-24 21:05] VITALS: BP 106/56; PULSE 88; RESP 18; TEMP 37.3; O2SAT 96
[2023-12-25] MEDS: HYOSCYAMINE SULFATE 0.125 MG TABLET PO (01:42)
[2023-12-25] MEDS: MORPHINE SULFATE (*CRX) 4 MG/ML INJ IV PUSH ×4 (01:42→08:29)
--- NOTE | 2023-12-25 06:10 | WPDUROPN2 ---
Progress Note: A&P Assessment and Plan (1) History of bladder cancer: Code(s): Z85.51 - Personal history of malignant neoplasm of bladder Status: Acute (2) H/O prostate cancer: Code(s): Z85.46 - Personal history of malignant neoplasm of prostate Status: Acute (3) Hematuria: Qualifiers: Hematuria type: gross Qualified Code(s): R31.0 - Gross hematuria Code(s): R31.9 - Hematuria, unspecified Status: Acute Assessment and Plan: Catheter our for voiding trial today Intermittent cath for retention Amicar drip x12 hours Subjective Subjective Date/Time Seen: 12/25/23 06:10 Interval history: No acute events Urine clear without clots this morning Review of Systems Review of Systems: All systems reviewed & are unremarkable except as noted in HPI and below Exam Urinary Catheter: Urinary Catheter: patent and draining and urine clear Objective Data Vital Signs Vital Signs: Vital Signs - 24 hr 12/24/23 08:00 12/24/23 15:59 12/24/23 21:05 Temperature 99 F 99.1 F Pulse Rate 88 88 Respiratory Rate 18 18 Blood Pressure 108/64 106/56 L Pulse Oximetry 95 96 Oxygen Delivery Room Air Intake/Output Intake/Output: Intake & Output 12/22/23 12/23/23 12/24/23 12/25/23 23:59 23:59 23:59 23:59 Intake Total 4030 2260 1050 Output Total 3550 3950 2150 Balance 480 -7649 -1100 Meds/Results Medications: Active Medications Generic Name Dose Route Start Last Admin Trade Name Freq PRN Reason Stop Dose Admin Acetaminophen 650 mg 12/18/23 17:28 12/23/23 21:04 Acetaminophen 325 Mg Tablet PO 650 mg Q4H PRN Administration Pain Rated 1-3 Docusate Sodium 100 mg 12/21/23 10:36 12/21/23 14:25 Docusate Sodium 100 Mg Capsule PO 100 mg Q12H PRN Administration Constipation Ferrous Sulfate 325 mg 12/21/23 17:00 12/24/23 16:03 Ferrous Sulfate [address] PO 325 mg BID ANNIE Administration Hyoscyamine 0.125 mg 12/19/23 22:04 12/25/23 01:42 Hyoscyamine Sulfate 0.125 Mg Tablet PO 0.125 mg Q4H PRN Administration Bladder Spasm Levothyroxine Sodium 112 mcg 12/17/23 06:30 12/24/23 05:57 Levothyroxine Sodium 112 Mcg Tablet PO 112 mcg DAILY@0630 ANNIE Administration Lisinopril 20 mg 12/17/23 09:00 12/24/23 08:35 Lisinopril 20 Mg Tablet PO 20 mg DAILY ANNIE Administration Meclizine HCl 25 mg 12/16/23 22:37 12/19/23 07:52 Meclizine Hcl 25 Mg Tablet PO 25 mg BID PRN Administration dizziness Morphine Sulfate 4 mg 12/23/23 23:34 12/25/23 04:57 Morphine Sulfate (*Crx) 4 Mg/Ml Inj IV PUSH 4 mg Q2H PRN Administration Pain Rated 7-10 Ondansetron HCl 4 mg 12/19/23 10:07 Ondansetron Inj 4 Mg/2 Ml Vial IV PUSH ONCE PRN Nausea Pantoprazole Sodium 40 mg 12/17/23 09:00 12/24/23 08:35 Pantoprazole 40 Mg Tablet PO 40 mg DAILY ANNIE Administration Polyethylene Glycol 17 gm 12/21/23 10:36 12/21/23 14:25 Polyethylene Glycol 3350 17 Gm Powd.Pack PO 17 gm QAM PRN Administration Constipation Rosuvastatin Calcium 20 mg 12/17/23 09:00 12/24/23 08:34 Rosuvastatin 10 Mg Tablet PO 20 mg DAILY ANNIE Administration Tamsulosin HCl 0.4 mg 12/16/23 22:50 12/24/23 20:08 Tamsulosin Hcl 0.4 Mg Capsule PO 0.4 mg HS ANNIE Administration Tramadol HCl 50 mg 12/18/23 17:28 12/24/23 16:03 Tramadol Hcl (*Crx) 50 Mg Tablet PO 50 mg Q4H PRN Administration Pain Rated 4-6 Labs Labs: Laboratory Results - last 24 hr 12/21/23 12/22/23 12/24/23 06:47 10:03 05:50 WBC 11.8 H RBC 2.55 L Hgb 7.3 L Hct 22.5 L MCV 88.2 MCH 28.6 MCHC 32.4 RDW 16.9 H Plt Count 282 MPV 8.8 Immature Gran % (Auto) 0.3 Neut % (Auto) 88.0 H Lymph % (Auto) 5.1 L Faulk % (Auto) 6.2 Eos % (Auto) 0.1 Baso % (Auto) 0.3 Lymph # (Auto) 0.60 L Faulk # (Auto) 0.7 H Eos # (Auto) 0.0
[2023-12-25 06:15] VITALS: BP 146/78; PULSE 93; RESP 20; TEMP 37.2; O2SAT 93
[2023-12-25] MEDS: LEVOTHYROXINE SODIUM 112 MCG TABLET PO (06:49)
[2023-12-25 07:09] LABS: Basophils Percent Auto 0.4 % (0.2-1.2); Eosinophils Absolute Auto 0.2 K/mm3 (0-0.3); Eosinophils Percent Auto 2.4 % (0-4.4); Hemoglobin 7.5 g/dL (14.0-18.0); Immature Granulocyte Absolute 0.06 K/mm3 (0.00-0.031); Immature Granulocyte Percent A 0.6 % (0-0.5); Lymphocytes Absolute Auto 0.69 K/mm3 (0.9-3.2); Lymphocytes Percent Auto 6.9 % (18.3-44.2); Mean Corpuscular HGB Conc 32.6 g/dl (32-36); Mean Corpuscular Hemoglobin 29.1 pg (26-34); Mean Corpuscular Volume 89.1 fl (80-100); Mean Platelet Volume 8.7 fl (7.4-10.4); Monocytes Absolute Auto 0.8 K/mm3 (0.1-0.6); Monocytes Percent Auto 7.6 % (2.6-8.5); Neutrophils Absolute Auto 8.2 K/mm3 (1.3-6.7); Neutrophils Percent Auto 82.1 % (45.5-73.1); Platelet Count Result 264 k/mm3 (150-375); Red Blood Count 2.58 M/mm3 (4.6-6.20); Red Cell Distribution Width 17.2 % (11.5-14.5)
[2023-12-25 07:37] LABS: Alanine Aminotransferase 12 U/L (6-50); Albumin Level 3.3 g/dL (3.5-5.1); Alkaline Phosphatase 61 U/L (38-126); Anion Gap 5 mmol/L (8-16); Aspartate Amino Transferase 26 U/L (17-59); Bilirubin,Total 0.5 mg/dL (0.2-1.3); Blood Urea Nitrogen 13 mg/dL (9-20); Calcium 8.4 mg/dL (8.4-10.2); Carbon Dioxide 26 mmol/L (22-30); Chloride 100 mmol/L (98-107); Estimated CRCL calculation 69 ml/min; Estimated Glomerular Filt Rate > 60; Glucose 100 mg/dL (65-110); Potassium 3.3 mmol/L (3.4-5.0); Sodium 131 mmol/L (137-145)
[2023-12-25] MEDS: ROSUVASTATIN 10 MG TABLET 20 MG PO (08:30)
[2023-12-25] MEDS: PANTOPRAZOLE 40 MG TABLET PO (08:31)
[2023-12-25] MEDS: lisinopriL 20 MG TABLET PO (08:31)
[2023-12-25] MEDS: FERROUS SULFATE 325 MG TABLET DR PO ×2 (08:31→16:25)
[2023-12-25] MEDS: ALPRAZolam (*CRX) 0.5 MG TABLET PO ×2 (10:00→20:11)
--- NOTE | 2023-12-25 10:33 | PCNWS ---
Weekly nutritional screen. Patient is tolerating current regular diet with adequate intake 50-75% most meals. No weight loss reported. No nutritional recommendations at this time. Will send Ensure Enlive daily per pt interest.
--- NOTE | 2023-12-25 14:25 | PM.IMPN ---
Progress Note: A&P Assessment and Plan (1) Hematuria: Qualifiers: Hematuria type: unspecified type Qualified Code(s): R31.9 - Hematuria, unspecified Code(s): R31.9 - Hematuria, unspecified Status: Acute Assessment and Plan: unclear etiology; no signs of upper urinary tract bleeding (normal CT-abd/pelvis w/wo in 06/13, normal renal u/s this admission and clear efflux of urine from ureters on cysto. x2). He has history of bladder cancer but no recurrence identified on cysto. x2. He also has history of pelvic radiation for prostate cancer but no signs of radiation cystitis on cysto. 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 as there is absolutely no outlet obstruction on cystoscopy Uro teach him Intermittent Self Catheterization (ISC) - better chcf option for emptying bladder, should mitigate bladder spasms Lindsey catheter removed this morning by urology, patient urinated independently dark red urine and clots Amicar drip x12 hours per urology (4) Abnormal urinalysis: Code(s): R82.90 - Unspecified abnormal findings in urine Status: Resolved Assessment and Plan: urine culture from clean catch, Lindsey port and catheter showed no bacterial growth 3/2 d/c Keflex (5) H/O prostate cancer: Code(s): Z85.46 - Personal history of malignant neoplasm of prostate Status: Acute Assessment and Plan: s/p RT Subjective Date/time seen: 12/25/23 14:25 Interval history: Patient continues to feel about the same. Lindsey catheter was removed this morning by urology. Patient has voided dark red urine including passing clots. Urology also aware. Pain medications adjusted. Will continue to monitor and follow urology recs. Review of Systems Review of Systems: All systems reviewed & are unremarkable except as noted in HPI and below (Subjective) Exam Narrative: General: Well-developed, nontoxic-appearing gentleman sitting up in bed in no acute distress. HEENT: PERRLA. EOMI Respiratory: Lungs are clear to auscultation bilaterally. Cardiovascular: RRR. Gastrointestinal: Abdomen is soft, nontender, and nondistended with positive bowel sounds. Genitourinary: Lindsey catheter draining dark red urine. Skin: Warm and dry. Extremities: No cyanosis, clubbing, or edema. Radial and pedal pulses intact. Neurological: A&O x3. Cranial nerves 2-12 are grossly intact. Psychiatric: Appropriate mood. Objective Data Vital Signs Vital Signs: Vital Signs - 24 hr 12/24/23 15:59 12/24/23 21:05 12/25/23 06:15 Temperature 99 F 99.1 F 98.9 F Pulse Rate 88 88 93 Respiratory Rate 18 18 20 Blood Pressure 108/64 106/56 L 146/78 H Pulse Oximetry 95 96 93 Oxygen Delivery 12/25/23 08:00 Temperature Pulse Rate Respiratory Rate Blood Pressure Pulse Oximetry Oxygen Delivery Room Air Intake/Output Intake/Output: Intake & Output 12/22/23 12/23/23 12/24/23 12/25/23 23:59 23:59 23:59 23:59 Intake Total 4030 2260 1350 630 Output Total 3550 3950 2150 2550 Balance 441 -4352 -584 -9302 Meds/Results Medications: Active Medications Generic Name Dose Route Start Last Admin Trade Name Freq PRN Reason Stop Dose Admin Acetaminophen 650 mg 12/18/23 17:28 12/23/23 21:04 Acetaminophen 325 Mg Tablet PO 650 mg Q4H PRN Administration Pain Rated 1-3 Hydrocodone Bitart/Acetaminophen 1 tab 12/25/23 08:04 Hydrocodon
[2023-12-25] MEDS: HYDROcodone/acetaminophen (*CRX) 7.5-325 MG TABLET 1 TAB PO ×2 (16:24→22:30)
[2023-12-25] MEDS: traMADol HCL (*CRX) 50 MG TABLET PO (20:10)
[2023-12-25] MEDS: TAMSULOSIN HCL 0.4 MG CAPSULE PO (20:11)
[2023-12-25 20:59] LABS: Factor VIII Activity 188 % normal (50-180)
[2023-12-25 21:05] VITALS: BP 101/55; PULSE 71; RESP 20; TEMP 36.9; O2SAT 96
[2023-12-26] MEDS: ALPRAZolam (*CRX) 0.5 MG TABLET PO ×2 (04:45→16:33)
[2023-12-26] MEDS: MORPHINE SULFATE (*CRX) 4 MG/ML INJ IV PUSH (04:45)
[2023-12-26 05:30] VITALS: BP 128/69; PULSE 79; RESP 18; TEMP 36.5; O2SAT 100
[2023-12-26] MEDS: HYDROcodone/acetaminophen (*CRX) 7.5-325 MG TABLET 1 TAB PO ×3 (06:14→20:14)
[2023-12-26] MEDS: LEVOTHYROXINE SODIUM 112 MCG TABLET PO (06:15)
[2023-12-26 06:24] LABS: Basophils Percent Auto 0.2 % (0.2-1.2); Eosinophils Absolute Auto 0.4 K/mm3 (0-0.3); Eosinophils Percent Auto 4.4 % (0-4.4); Hematocrit 21.1 % (42.0-52.0); Immature Granulocyte Absolute 0.05 K/mm3 (0.00-0.031); Immature Granulocyte Percent A 0.6 % (0-0.5); Lymphocytes Absolute Auto 0.58 K/mm3 (0.9-3.2); Mean Corpuscular HGB Conc 32.2 g/dl (32-36); Mean Corpuscular Hemoglobin 28.8 pg (26-34); Mean Corpuscular Volume 89.4 fl (80-100); Mean Platelet Volume 9.1 fl (7.4-10.4); Monocytes Absolute Auto 0.6 K/mm3 (0.1-0.6); Monocytes Percent Auto 7.8 % (2.6-8.5); Neutrophils Absolute Auto 6.6 K/mm3 (1.3-6.7); Platelet Count Result 217 k/mm3 (150-375); Red Blood Count 2.36 M/mm3 (4.6-6.20); Red Cell Distribution Width 17.6 % (11.5-14.5); White Blood Count 8.3 K/mm3 (4.5-10.0)
[2023-12-26 06:31] LABS: Hemoglobin 6.8 g/dL (14.0-18.0)
[2023-12-26 06:39] LABS: Alanine Aminotransferase 12 U/L (6-50); Albumin Level 2.9 g/dL (3.5-5.1); Alkaline Phosphatase 56 U/L (38-126); Anion Gap 2 mmol/L (8-16); Aspartate Amino Transferase 23 U/L (17-59); Bilirubin,Total 0.5 mg/dL (0.2-1.3); Blood Urea Nitrogen 12 mg/dL (9-20); Calcium 8.1 mg/dL (8.4-10.2); Carbon Dioxide 27 mmol/L (22-30); Chloride 100 mmol/L (98-107); Estimated CRCL calculation 69 ml/min; Estimated Glomerular Filt Rate > 60; Glucose 99 mg/dL (65-110); Potassium 3.7 mmol/L (3.4-5.0); Sodium 129 mmol/L (137-145)
--- NOTE | 2023-12-26 07:21 | WPDUROPN2 ---
Progress Note: A&P Assessment and Plan (1) History of bladder cancer: Code(s): Z85.51 - Personal history of malignant neoplasm of bladder Status: Acute (2) H/O prostate cancer: Code(s): Z85.46 - Personal history of malignant neoplasm of prostate Status: Acute (3) Hematuria: Qualifiers: Hematuria type: gross Qualified Code(s): R31.0 - Gross hematuria Code(s): R31.9 - Hematuria, unspecified Status: Acute Assessment and Plan: Voided spontaneously throughout day yesterday. Subjective reports of bladder spasms this morning but no objective significant findings -> bladder scan 300cc, straight catheterization by myself passed easlily and bladder drained completely without clots. Continue to leave catheter out and do intermittent catheterization as needed Subjective Subjective Date/Time Seen: 12/26/23 07:21 Interval history: Comfortable overnight, reports bladder spasms early this morning Review of Systems Review of Systems: All systems reviewed & are unremarkable except as noted in HPI and below Exam Const: General: no acute distress Resp: Effort & Inspection: normal respiratory effort GI: Inspection: non-distended GI Palp: No abdominal tenderness and No Guarding due to palpation present (GI) Auscultation: normal bowel sounds Objective Data Vital Signs Vital Signs: Vital Signs - 24 hr 12/25/23 08:00 12/25/23 21:05 12/26/23 05:30 Temperature 98.4 F 97.7 F Pulse Rate 71 79 Respiratory Rate 20 18 Blood Pressure 101/55 L 128/69 Pulse Oximetry 96 100 Oxygen Delivery Room Air Intake/Output Intake/Output: Intake & Output 12/23/23 12/24/23 12/25/23 12/26/23 23:59 23:59 23:59 23:59 Intake Total 2260 1350 2750 150 Output Total 3950 2150 2675 850 Balance -1690 -800 75 -700 Meds/Results Medications: Active Medications Generic Name Dose Route Start Last Admin Trade Name Freq PRN Reason Stop Dose Admin Acetaminophen 650 mg 12/18/23 17:28 12/23/23 21:04 Acetaminophen 325 Mg Tablet PO 650 mg Q4H PRN Administration Pain Rated 1-3 Hydrocodone Bitart/Acetaminophen 1 tab 12/25/23 08:04 12/26/23 06:14 Hydrocodone/Acetaminophen (*Crx) 7.5-325 Mg Tablet PO 1 tab Q6H PRN Administration Pain Rated 4-6 Alprazolam 0.5 mg 12/25/23 08:23 12/26/23 04:45 Alprazolam (*Crx) 0.5 Mg Tablet PO 0.5 mg Q8H PRN Administration Anxiety Docusate Sodium 100 mg 12/21/23 10:36 12/21/23 14:25 Docusate Sodium 100 Mg Capsule PO 100 mg Q12H PRN Administration Constipation Ferrous Sulfate 325 mg 12/21/23 17:00 12/25/23 16:25 Ferrous Sulfate [address] PO 325 mg BID ANNIE Administration Levothyroxine Sodium 112 mcg 12/17/23 06:30 12/26/23 06:15 Levothyroxine Sodium 112 Mcg Tablet PO 112 mcg DAILY@0630 ANNIE Administration Lisinopril 20 mg 12/17/23 09:00 12/25/23 08:31 Lisinopril 20 Mg Tablet PO 20 mg DAILY ANNIE Administration Meclizine HCl 25 mg 12/16/23 22:37 12/19/23 07:52 Meclizine Hcl 25 Mg Tablet PO 25 mg BID PRN Administration dizziness Morphine Sulfate 4 mg 12/23/23 23:34 12/26/23 04:45 Morphine Sulfate (*Crx) 4 Mg/Ml Inj IV PUSH 4 mg Q2H PRN Administration Pain Rated 7-10 Ondansetron HCl 4 mg 12/19/23 10:07 Ondansetron Inj 4 Mg/2 Ml Vial IV PUSH ONCE PRN Nausea Pantoprazole Sodium 40 mg 12/17/23 09:00 12/25/23 08:31 Pantoprazole 40 Mg Tablet PO 40 mg DAILY ANNIE Administration Polyethylene Glycol 17 gm 12/21/23 10:36 12/21/23 14:25 Polyethylene Glycol 3350 17 Gm Powd.Pack PO 17 gm QAM PRN Administration Constipation Rosuvastatin Calcium 20 mg 12/17/23 09:00 12/25/23 08:30 Rosuvastatin 10 Mg Tablet PO 20 mg DAILY ANNIE Administration Tamsulosin HCl 0.4 mg 12/16/23 22:50 12/25/23 20:11 Tamsulosin Hcl 0.4 Mg Capsule PO 0.4 mg HS ANNIE Administration Tramadol HCl
[2023-12-26 08:00] VITALS: PULSE 87; RESP 16; O2SAT 98
[2023-12-26] MEDS: TUBING, BLOOD PLUM PUMP TUBING 1 EACH XX (08:52)
[2023-12-26] MEDS: PHENAZOPYRIDINE HCL 100 MG TABLET 200 MG PO ×2 (09:02→17:38)
[2023-12-26] MEDS: ROSUVASTATIN 10 MG TABLET 20 MG PO (09:03)
[2023-12-26] MEDS: lisinopriL 20 MG TABLET PO (09:03)
[2023-12-26] MEDS: FERROUS SULFATE 325 MG TABLET DR PO ×2 (09:03→17:38)
--- NOTE | 2023-12-26 09:15 | P.PNIM_ITS ---
Progress Note: A&P Assessment and Plan (1) Hematuria: Qualifiers: Hematuria type: unspecified type Qualified Code(s): R31.9 - Hematuria, unspecified Code(s): R31.9 - Hematuria, unspecified Status: Acute Assessment and Plan: * unclear etiology; no signs of upper urinary tract bleeding (normal CT-ab d/pelvis w/wo in 06/13, normal renal u/s this admission and clear efflux of urine from ureters on cysto. x2). He has history of bladder cancer but no recurrence identified on cysto. x2. He also has history of pelvic radiation for prostate cancer but no signs of radiation cystitis on cysto. x2 but had blood oozing from prostatic urethra during cystoscopy this admission * 12/25 * urine observed in urinal- dark red * Lins[place]y remains out- straight cath by Urology this morning * per urology continue the catheter out and teach intermittent catheterization * reports bladder spasm- there has ordered Pyridium (2) Chronic anemia: Code(s): D64.9 - Anemia, unspecified Status: Acute Assessment and Plan: * iron studies showed iron 27, TIBC 376, 7% saturation, ferritin 27.10 * hematology ordered iron infusion 12/21 * continue oral iron * 12/22 - 6.6 and received 1 U PRBC * H&H 7.5 this am, will continue to closely monitor * 12/25 * H&H 6.8/21.1 * transfuse 1 unit packed red blood cells * H&H 8.3/ 25.4 at 2:00 p.m. 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 as there is absolutely no outlet obstruction on cystoscopy * Uro teach him Intermittent Self Catheterization (ISC) - better long term care pharmacist option for emptying bladder, should mitigate bladder spasms * Lindsey catheter removed this morning by urology, patient urinated independently dark red urine and clots * Amicar drip x12 hours per urology * 3/6 * urology straight cath this a.m.- order to keep Lindsey out and teach patient straight cath med * patient continues to have pain- Pyridium order per Urology * amicar drip DC'd- No PO order at this time- refer to hematology note (4) Abnormal urinalysis: Code(s): R82.90 - Unspecified abnormal findings in urine Status: Resolved Assessment and Plan: * urine culture from clean catch, Lindsey port and catheter showed no bacterial growth * 3/2 d/c Keflex * 3/6 * urine sent for culture today per Urology after straight catheterization * urine culture pending (5) H/O prostate cancer: Code(s): Z85.46 - Personal history of malignant neoplasm of prostate Status: Acute Assessment and Plan: * s/p RT Time Spent With Patient Time with patient: 15 - 25 minutes Subjective Date/time seen: 12/26/23 09:15 Interval history: examined today at bedside in interval assessment after admission from ED with concerns of hematuria. patient expressed that his pain is constant and localizes pain to his penis tip. he states that pain builds up until he is catheterized, this gives him some relief but soon returned. urine is still dark red, urology aware and wants to keep Lindsey out. nursing to teach the patient self catheterization methods. patient states that he had prostate cancer and underwent radiation and believes that this is causing his now bladder issues. Review of Systems Review of Systems: All systems reviewed & are unremarkable except as noted in HPI and below Exam Narrative: General: Well
--- NOTE | 2023-12-26 09:15 | PM.IMPN ---
Progress Note: A&P Assessment and Plan (1) Hematuria: Qualifiers: Hematuria type: unspecified type Qualified Code(s): R31.9 - Hematuria, unspecified Code(s): R31.9 - Hematuria, unspecified Status: Acute Assessment and Plan: unclear etiology; no signs of upper urinary tract bleeding (normal CT-abd/pelvis w/wo in 06/13, normal renal u/s this admission and clear efflux of urine from ureters on cysto. x2). He has history of bladder cancer but no recurrence identified on cysto. x2. He also has history of pelvic radiation for prostate cancer but no signs of radiation cystitis on cysto. x2 but had blood oozing from prostatic urethra during cystoscopy this admission 3/ urine observed in urinal- dark red Lindsey remains out- straight cath by Urology this morning per urology continue the catheter out and teach intermittent catheterization reports bladder spasm- there has ordered Pyridium (2) Chronic anemia: Code(s): D64.9 - Anemia, unspecified Status: Acute Assessment and Plan: iron studies showed iron 27, TIBC 376, 7% saturation, ferritin 27.10 hematology ordered iron infusion 3/2 continue oral iron 3/ - 6.6 and received 1 U PRBC H&H 7.03/13 this am, will continue to closely monitor 3/6 H&H 6.8/21.1 transfuse 1 unit packed red blood cells H&H 8.3/ 25.4 at 2:00 p.m. 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 as there is absolutely no outlet obstruction on cystoscopy Uro teach him Intermittent Self Catheterization (ISC) - better intermediate option for emptying bladder, should mitigate bladder spasms Lindsey catheter removed this morning by urology, patient urinated independently dark red urine and clots Amicar drip x12 hours per urology 3/6 urology straight cath this a.m.- order to keep Lindsey out and teach patient straight cath med patient continues to have pain- Pyridium order per Urology amicar drip DC'd- No PO order at this time- refer to hematology note (4) Abnormal urinalysis: Code(s): R82.90 - Unspecified abnormal findings in urine Status: Resolved Assessment and Plan: urine culture from clean catch, Lindsey port and catheter showed no bacterial growth 3/2 d/c Keflex 3/6 urine sent for culture today per Urology after straight catheterization urine culture pending (5) H/O prostate cancer: Code(s): Z85.46 - Personal history of malignant neoplasm of prostate Status: Acute Assessment and Plan: s/p RT Time Spent With Patient Time with patient: 15 - 25 minutes Subjective Date/time seen: 12/26/23 09:15 Interval history: examined today at bedside in interval assessment after admission from ED with concerns of hematuria. patient expressed that his pain is constant and localizes pain to his penis tip. he states that pain builds up until he is catheterized, this gives him some relief but soon returned. urine is still dark red, urology aware and wants to keep Lindsey out. nursing to teach the patient self catheterization methods. patient states that he had prostate cancer and underwent radiation and believes that this is causing his now bladder issues. Review of Systems Review of Systems: All systems reviewed & are unremarkable except as noted in HPI and below Exam Narrative: General: Well-developed, nontoxic-appearing gentleman sitting up in bed in no acute distress. HEENT: PERRLA. EOMI Respiratory: Lungs are clear to auscultation bilaterally. Cardiovascular: RRR. no edema Gastrointestinal: Abdomen is soft, nontender, and nondistended with positive bowel sounds. Genitourinary: Urinal contains dark red urine Skin: Warm and dry. Extremities: No cyanosis, clubbing, or edema. Radial and pedal pulses intact. 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
[2023-12-26] MEDS: SODIUM CHLORIDE 0.9% IV 250 ML 30 ML IV CONT (10:11)
[2023-12-26 10:35] VITALS: BP 119/66; PULSE 80; RESP 13; TEMP 37; O2SAT 100
[2023-12-26 10:55] VITALS: BP 114/55; PULSE 87; RESP 16; TEMP 36.8; O2SAT 98
[2023-12-26] MEDS: traMADol HCL (*CRX) 50 MG TABLET PO (11:02)
[2023-12-26] MEDS: PANTOPRAZOLE 40 MG TABLET PO (11:04)
--- NOTE | 2023-12-26 11:18 | PC.NURSE ---
Patient has been educated on straight cath every 3-5 hours. Supplies are at bedside, next procedure will be performed by pt and observed by RN to ensure accuracy.
[2023-12-26 15:08] LABS: Hematocrit 25.4 % (42.0-52.0); Hemoglobin 8.3 g/dL (14.0-18.0); Mean Corpuscular HGB Conc 32.7 g/dl (32-36); Mean Corpuscular Hemoglobin 28.1 pg (26-34); Mean Corpuscular Volume 86.1 fl (80-100); Mean Platelet Volume 8.6 fl (7.4-10.4); Platelet Count Result 221 k/mm3 (150-375); Red Blood Count 2.95 M/mm3 (4.6-6.20); Red Cell Distribution Width 17.4 % (11.5-14.5); White Blood Count 9.6 K/mm3 (4.5-10.0)
[2023-12-26 15:18] LABS: Alanine Aminotransferase 14 U/L (6-50); Albumin Level 3.1 g/dL (3.5-5.1); Alkaline Phosphatase 64 U/L (38-126); Anion Gap 3 mmol/L (8-16); Aspartate Amino Transferase 24 U/L (17-59); Bilirubin,Total 0.8 mg/dL (0.2-1.3); Blood Urea Nitrogen 9 mg/dL (9-20); Calcium 8.1 mg/dL (8.4-10.2); Carbon Dioxide 27 mmol/L (22-30); Chloride 100 mmol/L (98-107); Estimated CRCL calculation 69 ml/min; Estimated Glomerular Filt Rate > 60; Glucose 124 mg/dL (65-110); Potassium 3.2 mmol/L (3.4-5.0); Sodium 130 mmol/L (137-145)
[2023-12-26] MEDS: POTASSIUM CHLORIDE 20 MEQ ER TABLET 40 MEQ PO (18:16)
[2023-12-26] MEDS: TAMSULOSIN HCL 0.4 MG CAPSULE PO (20:14)
[2023-12-26] MEDS: diazePAM INJ (*CRX) 10 MG/2 ML SYRINGE 5 MG IV PUSH (21:38)
[2023-12-26 22:00] VITALS: BP 134/65; PULSE 84; RESP 20; TEMP 37.3; O2SAT 92
--- NOTE | 2023-12-26 22:19 | PC.NURSE ---
Pt has been diaphoretic, shaking and screaming in pain this shift, due to bladder spams. Pt has been bladder scanned and straight cathed, with no results. A coude catheter was used to straight cath pt with good results. However pt continues to have bladder spasms and c/o pain. The night hospitalist ordered a one time dose of valium which has allowed the pt to relax enough to try to rest and not yell out. Education provided to pt regarding straight cathing himself, however he was in too much pain to attempt.
[2023-12-27] MEDS: MORPHINE SULFATE (*CRX) 4 MG/ML INJ IV PUSH (00:40)
--- NOTE | 2023-12-27 02:11 | PC.NURSE ---
Pt got up to the bathroom to try to urinate without being straight cathed. Pt passed multiple small blood clots in the toilet with minimal urine, however reported relief afterwards.
[2023-12-27 02:35] LABS: Glucose Point of Care 117 mg/dl (65-105)
--- NOTE | 2023-12-27 04:37 | PC.NURSE ---
Pt remains unable to void on his own this shift. Utilizing straight catheters and flushing due to small blood clots blocking the initial flow of urine.
[2023-12-27 05:35] VITALS: BP 153/71; PULSE 107; RESP 20; TEMP 37.5; O2SAT 91
[2023-12-27] MEDS: LEVOTHYROXINE SODIUM 112 MCG TABLET PO (06:12)
[2023-12-27] MEDS: traMADol HCL (*CRX) 50 MG TABLET PO (06:12)
[2023-12-27 06:34] LABS: Basophils Absolute Auto 0.1 K/mm3 (0.0-0.1); Basophils Percent Auto 0.6 % (0.2-1.2); Eosinophils Absolute Auto 0.3 K/mm3 (0-0.3); Eosinophils Percent Auto 2.9 % (0-4.4); Hematocrit 26.2 % (42.0-52.0); Hemoglobin 8.4 g/dL (14.0-18.0); Immature Granulocyte Absolute 0.04 K/mm3 (0.00-0.031); Immature Granulocyte Percent A 0.4 % (0-0.5); Lymphocytes Absolute Auto 0.45 K/mm3 (0.9-3.2); Mean Corpuscular HGB Conc 32.1 g/dl (32-36); Mean Corpuscular Hemoglobin 27.5 pg (26-34); Mean Corpuscular Volume 85.6 fl (80-100); Mean Platelet Volume 8.6 fl (7.4-10.4); Monocytes Absolute Auto 0.7 K/mm3 (0.1-0.6); Monocytes Percent Auto 8.2 % (2.6-8.5); Neutrophils Absolute Auto 7.5 K/mm3 (1.3-6.7); Neutrophils Percent Auto 82.9 % (45.5-73.1); Platelet Count Result 241 k/mm3 (150-375); Red Blood Count 3.06 M/mm3 (4.6-6.20); Red Cell Distribution Width 17.4 % (11.5-14.5); White Blood Count 9.1 K/mm3 (4.5-10.0)
[2023-12-27 06:47] LABS: Alanine Aminotransferase 15 U/L (6-50); Albumin Level 3.1 g/dL (3.5-5.1); Alkaline Phosphatase 73 U/L (38-126); Anion Gap 3 mmol/L (8-16); Aspartate Amino Transferase 25 U/L (17-59); Bilirubin,Total 0.7 mg/dL (0.2-1.3); Blood Urea Nitrogen 11 mg/dL (9-20); Calcium 8.2 mg/dL (8.4-10.2); Carbon Dioxide 26 mmol/L (22-30); Chloride 102 mmol/L (98-107); Estimated CRCL calculation 69 ml/min; Estimated Glomerular Filt Rate > 60; Glucose 97 mg/dL (65-110); Potassium 3.5 mmol/L (3.4-5.0); Sodium 131 mmol/L (137-145)
--- NOTE | 2023-12-27 08:07 | P.PNIM_ITS ---
Progress Note: A&P Assessment and Plan (1) Hematuria: Qualifiers: Hematuria type: unspecified type Qualified Code(s): R31.9 - Hematuria, unspecified Code(s): R31.9 - Hematuria, unspecified Status: Acute Assessment and Plan: * unclear etiology; no signs of upper urinary tract bleeding (normal CT-ab d/pelvis w/wo in 06/13, normal renal u/s this admission and clear efflux of urine from ureters on cysto. x2). He has history of bladder cancer but no recurrence identified on cysto. x2. He also has history of pelvic radiation for prostate cancer but no signs of radiation cystitis on cysto. x2 but had blood oozing from prostatic urethra during cystoscopy this admission * 3 * urine observed in urinal- dark red * Lindsey remains out- straight cath by Urology this morning * per urology continue the catheter out and teach intermittent catheterization * reports bladder spasm- there has ordered Pyridium * 12/26 * urology and nursing at bedside, providing self catheterization indication * patient has spontaneous voids and need for occasional intermittent catheterization * urology notes that patient will be discharged and educated to perform self catheterization. do not reinsert Lindsey * oral Amicar x1 week discharge per Urology * follow-up with urology for urodynamics and discharge- urology notes that patient likely to discharge tomorrow (2) Chronic anemia: Code(s): D64.9 - Anemia, unspecified Status: Acute Assessment and Plan: * iron studies showed iron 27, TIBC 376, 7% saturation, ferritin 27.10 * hematology ordered iron infusion 12/21 * continue oral iron * 12/22 - 6.6 and received 1 U PRBC * H&H 7.5 this am, will continue to closely monitor * /6 * H&H 6.8/21.1 * transfuse 1 unit packed red blood cells * H&H 8.3/ 25.4 at 2:00 p.m. 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 as there is absolutely no outlet obstruction on cystoscopy * Uro teach him Intermittent Self Catheterization (ISC) - better alf option for emptying bladder, should mitigate bladder spasms * Lindsey catheter removed this morning by urology, patient urinated independently dark red urine and clots * Amicar drip x12 hours per urology * 12/25 * urology straight cath this a.m.- order to keep Lindsey out and teach patient straight cath med * patient continues to have pain- Pyridium order per Urology * amicar drip DC'd- No PO order at this time- refer to hematology note * 12/26 * patient voids spontaneously with need for occasional self catheterization * urology and nursing at bedside to provide self-cath education * per Urology patient likely discharged tomorrow (4) Abnormal urinalysis: Code(s): R82.90 - Unspecified abnormal findings in urine Status: Resolved Assessment and Plan: * urine culture from clean catch, Lindsey port and catheter showed no bacterial growth * 3/ d/c Keflex * 12/25 * urine sent for culture today per Urology after straight catheterization * urine culture pending * 12/26 * urine culture preliminary results show Gram-negative bacilli- started on IV Rocephin- will transition to p.o. at discharge (5) H/O prostate cancer: Code(s): Z85.46 - Personal history of malignant neoplasm of prostate Status: Acute Assessment and Plan: * s/p RT Time Spent With Patient Ti
--- NOTE | 2023-12-27 08:07 | PM.IMPN ---
Progress Note: A&P Assessment and Plan (1) Hematuria: Qualifiers: Hematuria type: unspecified type Qualified Code(s): R31.9 - Hematuria, unspecified Code(s): R31.9 - Hematuria, unspecified Status: Acute Assessment and Plan: unclear etiology; no signs of upper urinary tract bleeding (normal CT-abd/pelvis w/wo in 06/13, normal renal u/s this admission and clear efflux of urine from ureters on cysto. x2). He has history of bladder cancer but no recurrence identified on cysto. x2. He also has history of pelvic radiation for prostate cancer but no signs of radiation cystitis on cysto. x2 but had blood oozing from prostatic urethra during cystoscopy this admission 3/6 urine observed in urinal- dark red Lindsey remains out- straight cath by Urology this morning per urology continue the catheter out and teach intermittent catheterization reports bladder spasm- there has ordered Pyridium 3/7 urology and nursing at bedside, providing self catheterization indication patient has spontaneous voids and need for occasional intermittent catheterization urology notes that patient will be discharged and educated to perform self catheterization. do not reinsert Lindsey oral Amicar x1 week discharge per Urology follow-up with urology for urodynamics and discharge- urology notes that patient likely to discharge tomorrow (2) Chronic anemia: Code(s): D64.9 - Anemia, unspecified Status: Acute Assessment and Plan: iron studies showed iron 27, TIBC 376, 7% saturation, ferritin 27.10 hematology ordered iron infusion 3/2 continue oral iron 3/3 - 6.6 and received 1 U PRBC H&H 7.03/13 this am, will continue to closely monitor 3/6 H&H 6.8/21.1 transfuse 1 unit packed red blood cells H&H 8.3/ 25.4 at 2:00 p.m. 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 as there is absolutely no outlet obstruction on cystoscopy Uro teach him Intermittent Self Catheterization (ISC) - better group home option for emptying bladder, should mitigate bladder spasms Lindsey catheter removed this morning by urology, patient urinated independently dark red urine and clots Amicar drip x12 hours per urology 12/25 urology straight cath this a.m.- order to keep Lindsey out and teach patient straight cath med patient continues to have pain- Pyridium order per Urology amicar drip DC'd- No PO order at this time- refer to hematology note 12/26 patient voids spontaneously with need for occasional self catheterization urology and nursing at bedside to provide self-cath education per Urology patient likely discharged tomorrow (4) Abnormal urinalysis: Code(s): R82.90 - Unspecified abnormal findings in urine Status: Resolved Assessment and Plan: urine culture from clean catch, Lindsey port and catheter showed no bacterial growth 3 d/c Keflex 12/25 urine sent for culture today per Urology after straight catheterization urine culture pending 12/26 urine culture preliminary results show Gram-negative bacilli- started on IV Rocephin- will transition to p.o. at discharge (5) H/O prostate cancer: Code(s): Z85.46 - Personal history of malignant neoplasm of prostate Status: Acute Assessment and Plan: s/p RT Time Spent With Patient Time with patient: 15 - 25 minutes Subjective Date/time seen: 12/27/23 08:07 Interval history: patient is very pleasant today, he notes that his pain is controlled at this. he expressed that pain occurs when what he described as a buildup happens, he further explained that this is when he feels the need to void. pain is relieved with straight cath. nursing and Urology at bedside for straight cath education. urology noted patient will
[2023-12-27] MEDS: FERROUS SULFATE 325 MG TABLET DR PO ×2 (10:02→17:23)
[2023-12-27] MEDS: PANTOPRAZOLE 40 MG TABLET PO (10:02)
[2023-12-27] MEDS: ROSUVASTATIN 10 MG TABLET 20 MG PO (10:02)
[2023-12-27] MEDS: lisinopriL 20 MG TABLET PO (10:02)
[2023-12-27] MEDS: PHENAZOPYRIDINE HCL 100 MG TABLET 200 MG PO ×2 (10:02→17:22)
--- NOTE | 2023-12-27 11:07 | WPDUROPN2 ---
Progress Note: A&P Assessment and Plan (1) History of bladder cancer: Code(s): Z85.51 - Personal history of malignant neoplasm of bladder Status: Acute (2) H/O prostate cancer: Code(s): Z85.46 - Personal history of malignant neoplasm of prostate Status: Acute (3) Hematuria: Qualifiers: Hematuria type: gross Qualified Code(s): R31.0 - Gross hematuria Code(s): R31.9 - Hematuria, unspecified Status: Acute Assessment and Plan: Continues to void some spontaneously with need for occasional intermittent catheterization No signs of clot urinary retention Will encourage pt. to do intermittent SELF catheterization as needed. We should NOT replace indwelling catheter. Possibly, tentatively plan discharge Sunday. At discharge will plan oral Amicar x1 week (rx. placed in discharge material). Will arrange urodynamics to check bladder strength/function shortly after discharge. Subjective Subjective Date/Time Seen: 12/27/23 11:07 Interval history: Nothing much new; continues to void some spontaneously with some need for intermittent catheterization Review of Systems Review of Systems: All systems reviewed & are unremarkable except as noted in HPI and below Exam Const: General: no acute distress Resp: Effort & Inspection: normal respiratory effort GI: Inspection: non-distended GI Palp: No abdominal tenderness and No Guarding due to palpation present (GI) Auscultation: normal bowel sounds Objective Data Vital Signs Vital Signs: Vital Signs - 24 hr 12/26/23 20:00 12/26/23 22:00 12/27/23 05:35 Temperature 99.1 F 99.5 F Pulse Rate 84 107 H Respiratory Rate 20 20 Blood Pressure 134/65 153/71 H Pulse Oximetry 92 91 Oxygen Delivery Room Air Intake/Output Intake/Output: Intake & Output 12/24/23 12/25/23 12/26/23 12/27/23 23:59 23:59 23:59 23:59 Intake Total 1350 2750 1408 100 Output Total 2150 2675 2670 650 Balance -800 88 -3007 -205 Meds/Results Medications: Active Medications Generic Name Dose Route Start Last Admin Trade Name Freq PRN Reason Stop Dose Admin Acetaminophen 650 mg 12/18/23 17:28 12/23/23 21:04 Acetaminophen 325 Mg Tablet PO 650 mg Q4H PRN Administration Pain Rated 1-3 Hydrocodone Bitart/Acetaminophen 1 tab 12/25/23 08:04 12/26/23 20:14 Hydrocodone/Acetaminophen (*Crx) 7.5-325 Mg Tablet PO 1 tab Q6H PRN Administration Pain Rated 4-6 Alprazolam 0.5 mg 12/25/23 08:23 12/26/23 16:33 Alprazolam (*Crx) 0.5 Mg Tablet PO 0.5 mg Q8H PRN Administration Anxiety Docusate Sodium 100 mg 12/21/23 10:36 12/21/23 14:25 Docusate Sodium 100 Mg Capsule PO 100 mg Q12H PRN Administration Constipation Ferrous Sulfate 325 mg 12/21/23 17:00 12/27/23 10:02 Ferrous Sulfate [address] PO 325 mg BID ANNIE Administration Levothyroxine Sodium 112 mcg 12/17/23 06:30 12/27/23 06:12 Levothyroxine Sodium 112 Mcg Tablet PO 112 mcg DAILY@0630 ANNIE Administration Lisinopril 20 mg 12/17/23 09:00 12/27/23 10:02 Lisinopril 20 Mg Tablet PO 20 mg DAILY ANNIE Administration Meclizine HCl 25 mg 12/16/23 22:37 12/19/23 07:52 Meclizine Hcl 25 Mg Tablet PO 25 mg BID PRN Administration dizziness Morphine Sulfate 4 mg 12/23/23 23:34 12/27/23 00:40 Morphine Sulfate (*Crx) 4 Mg/Ml Inj IV PUSH 4 mg Q2H PRN Administration Pain Rated 7-10 Ondansetron HCl 4 mg 12/19/23 10:07 Ondansetron Inj 4 Mg/2 Ml Vial IV PUSH ONCE PRN Nausea Pantoprazole Sodium 40 mg 12/17/23 09:00 12/27/23 10:02 Pantoprazole 40 Mg Tablet PO 40 mg DAILY ANNIE Administration Phenazopyridine HCl 200 mg 12/26/23 09:00 12/27/23 10:02 Phenazopyridine Hcl 100 Mg Tablet PO 200 mg BID ANNIE Administration Polyethylene Glycol 17 gm 12/21/23 10:36 12/21/23 14:25 Polyethylene Glycol 3350 17 Gm Powd.Pack PO 17 gm QAM PRN Admi
[2023-12-27 14:33] VITALS: BP 143/73; PULSE 96; RESP 20; TEMP 37.4; O2SAT 95
[2023-12-27 15:18] LABS: Soluble Transferrin Receptor 1.37 mg/L (0.76-1.76)
[2023-12-27] MEDS: HYDROcodone/acetaminophen (*CRX) 7.5-325 MG TABLET 1 TAB PO (17:22)
[2023-12-27] MEDS: WATER FOR IRRIGATION, STERILE 1,000 ML BOTTLE 1000 ML (19:52)
[2023-12-27] MEDS: TAMSULOSIN HCL 0.4 MG CAPSULE PO (20:51)
[2023-12-27 20:52] VITALS: TEMP 38.7
[2023-12-27] MEDS: ACETAMINOPHEN 325 MG TABLET 650 MG PO (20:52)
[2023-12-27 20:55] VITALS: BP 132/61; PULSE 115; RESP 18; TEMP 38.7; O2SAT 96
[2023-12-27] MEDS: SODIUM CHLORIDE 0.9% IV 1,000 ML 999 ML IV CONT (21:35)
[2023-12-27 22:31] LABS: Basophils Percent Auto 0.4 % (0.2-1.2); Eosinophils Absolute Auto 0.1 K/mm3 (0-0.3); Eosinophils Percent Auto 1.9 % (0-4.4); Hematocrit 25.1 % (42.0-52.0); Hemoglobin 8.2 g/dL (14.0-18.0); Immature Granulocyte Absolute 0.06 K/mm3 (0.00-0.031); Immature Granulocyte Percent A 0.8 % (0-0.5); Lymphocytes Absolute Auto 0.42 K/mm3 (0.9-3.2); Lymphocytes Percent Auto 5.7 % (18.3-44.2); Mean Corpuscular HGB Conc 32.7 g/dl (32-36); Mean Corpuscular Hemoglobin 28.1 pg (26-34); Mean Platelet Volume 8.2 fl (7.4-10.4); Monocytes Absolute Auto 0.6 K/mm3 (0.1-0.6); Monocytes Percent Auto 8.2 % (2.6-8.5); Neutrophils Absolute Auto 6.1 K/mm3 (1.3-6.7); Platelet Count Result 226 k/mm3 (150-375); Red Blood Count 2.92 M/mm3 (4.6-6.20); Red Cell Distribution Width 17.5 % (11.5-14.5); White Blood Count 7.3 K/mm3 (4.5-10.0)
[2023-12-27 22:42] VITALS: BP 105/58; PULSE 98; RESP 20; TEMP 37.6; O2SAT 92
[2023-12-27 22:43] LABS: Anion Gap 5 mmol/L (8-16); Blood Urea Nitrogen 13 mg/dL (9-20); Calcium 8.4 mg/dL (8.4-10.2); Carbon Dioxide 25 mmol/L (22-30); Chloride 100 mmol/L (98-107); Estimated CRCL calculation 62 ml/min; Estimated Glomerular Filt Rate > 60; Glucose 112 mg/dL (65-110); Sodium 130 mmol/L (137-145)
[2023-12-27 22:54] LABS: Lactic Acid Reflex 1.7 mmol/L (0.7-2.0)
[2023-12-27 22:59] LABS: Procalcitonin 0.2 ng/mL
[2023-12-28] VITALS (16 sets, daily range): BP systolic 104–160; BP diastolic 58–83; PULSE 83–112; RESP 16–20; TEMP 36.2–39.3; O2SAT 95–97
[2023-12-28] MEDS: LEVOTHYROXINE SODIUM 112 MCG TABLET PO (05:34)
[2023-12-28] MEDS: traMADol HCL (*CRX) 50 MG TABLET PO (05:43)
[2023-12-28] MEDS: ACETAMINOPHEN 325 MG TABLET 650 MG PO ×2 (06:15→21:06)
[2023-12-28 06:28] LABS: Basophils Percent Auto 0.5 % (0.2-1.2); Eosinophils Absolute Auto 0.1 K/mm3 (0-0.3); Eosinophils Percent Auto 0.9 % (0-4.4); Hematocrit 26.8 % (42.0-52.0); Hemoglobin 8.6 g/dL (14.0-18.0); Immature Granulocyte Absolute 0.07 K/mm3 (0.00-0.031); Immature Granulocyte Percent A 1.1 % (0-0.5); Lymphocytes Absolute Auto 0.33 K/mm3 (0.9-3.2); Lymphocytes Percent Auto 5.2 % (18.3-44.2); Mean Corpuscular HGB Conc 32.1 g/dl (32-36); Mean Corpuscular Hemoglobin 27.7 pg (26-34); Mean Corpuscular Volume 86.2 fl (80-100); Mean Platelet Volume 8.5 fl (7.4-10.4); Monocytes Absolute Auto 0.5 K/mm3 (0.1-0.6); Monocytes Percent Auto 8.1 % (2.6-8.5); Neutrophils Absolute Auto 5.4 K/mm3 (1.3-6.7); Neutrophils Percent Auto 84.2 % (45.5-73.1); Platelet Count Result 240 k/mm3 (150-375); Red Blood Count 3.11 M/mm3 (4.6-6.20); Red Cell Distribution Width 17.7 % (11.5-14.5); White Blood Count 6.4 K/mm3 (4.5-10.0)
[2023-12-28 07:00] LABS: Alanine Aminotransferase 19 U/L (6-50); Albumin Level 3.3 g/dL (3.5-5.1); Alkaline Phosphatase 85 U/L (38-126); Anion Gap 5 mmol/L (8-16); Aspartate Amino Transferase 36 U/L (17-59); Bilirubin,Total 0.6 mg/dL (0.2-1.3); Blood Urea Nitrogen 10 mg/dL (9-20); Calcium 8.4 mg/dL (8.4-10.2); Carbon Dioxide 26 mmol/L (22-30); Chloride 100 mmol/L (98-107); Estimated CRCL calculation 69 ml/min; Estimated Glomerular Filt Rate > 60; Glucose 108 mg/dL (65-110); Potassium 3.6 mmol/L (3.4-5.0); Sodium 131 mmol/L (137-145)
--- NOTE | 2023-12-28 07:15 | WPDUROPN2 ---
Progress Note: A&P Assessment and Plan (1) History of bladder cancer: Code(s): Z85.51 - Personal history of malignant neoplasm of bladder Status: Acute (2) H/O prostate cancer: Code(s): Z85.46 - Personal history of malignant neoplasm of prostate Status: Acute (3) Hematuria: Qualifiers: Hematuria type: gross Qualified Code(s): R31.0 - Gross hematuria Code(s): R31.9 - Hematuria, unspecified Status: Acute Assessment and Plan: Doing well with intermittent self-catheterization. I would avoid replacement indwelling catheter unless absolutely necessary for full-blown clot retention. Will arrange urodynamics shortly after discharge Oral Amicar on discharge (outpatient prescription entered) Subjective Subjective Date/Time Seen: 12/28/23 07:15 Interval history: Comfortable Doing well with intermittent self-cathetization Review of Systems Constitutional: Constitutional: Reports fatigue and Reports fever(s) Cardiovascular: Cardiovascular: Denies chest pain, Denies lightheadedness, Denies palpitations and Denies dyspnea Respiratory: Respiratory: Denies dyspnea Gastrointestinal: Gastrointestinal: Denies diarrhea, Denies nausea and Denies vomiting Genitourinary: Genitourinary: Denies hematuria and Denies dysuria Endocrine: Endocrine: Denies palpitations Exam Const: General: no acute distress Resp: Effort & Inspection: normal respiratory effort GI: Inspection: non-distended GI Palp: No abdominal tenderness and No Guarding due to palpation present (GI) Auscultation: normal bowel sounds Objective Data Vital Signs Vital Signs: Vital Signs - 24 hr 12/27/23 10:00 12/27/23 14:33 12/27/23 20:52 Temperature 99.3 F 101.6 F H Pulse Rate 96 Respiratory Rate 20 Blood Pressure 143/73 H Pulse Oximetry 95 Oxygen Delivery Room Air 12/27/23 20:00 12/27/23 20:55 12/27/23 22:42 Temperature 101.6 F H 99.6 F Pulse Rate 115 H 98 Respiratory Rate 18 20 Blood Pressure 132/61 105/58 L Pulse Oximetry 96 92 Oxygen Delivery Room Air 12/28/23 00:00 12/28/23 04:00 12/28/23 06:15 Temperature 102.8 F H Pulse Rate 110 H 102 H Respiratory Rate Blood Pressure Pulse Oximetry Oxygen Delivery 12/28/23 05:55 Temperature 102.8 F H Pulse Rate 112 H Respiratory Rate 16 Blood Pressure 160/83 H Pulse Oximetry 95 Oxygen Delivery Intake/Output Intake/Output: Intake & Output 12/25/23 12/26/23 12/27/23 12/28/23 23:59 23:59 23:59 23:59 Intake Total 2750 1408 1255 150 Output Total 2675 2670 1520 875 Balance 08 -1893 -702 -720 Meds/Results Medications: Active Medications Generic Name Dose Route Start Last Admin Trade Name Freq PRN Reason Stop Dose Admin Acetaminophen 650 mg 12/18/23 17:28 12/28/23 06:15 Acetaminophen 325 Mg Tablet PO 650 mg Q4H PRN Administration Pain Rated 1-3 Hydrocodone Bitart/Acetaminophen 1 tab 12/25/23 08:04 12/27/23 17:22 Hydrocodone/Acetaminophen (*Crx) 7.5-325 Mg Tablet PO 1 tab Q6H PRN Administration Pain Rated 4-6 Alprazolam 0.5 mg 12/25/23 08:23 12/26/23 16:33 Alprazolam (*Crx) 0.5 Mg Tablet PO 0.5 mg Q8H PRN Administration Anxiety Docusate Sodium 100 mg 12/21/23 10:36 12/21/23 14:25 Docusate Sodium 100 Mg Capsule PO 100 mg Q12H PRN Administration Constipation Ferrous Sulfate 325 mg 12/21/23 17:00 12/27/23 17:23 Ferrous Sulfate [address] PO 325 mg BID ANNIE Administration Ceftriaxone Sodium 1 gm in 50 mls @ 100 mls/hr 12/27/23 17:20 12/27/23 17:37 Rocephin 1 Gm/Ns 50 Ml IVPB 100 mls/hr DAILY@1200 ANNIE Administration Levothyroxine Sodium 112 mcg 12/17/23 06:30 12/28/23 05:34 Levothyroxine Sodium 112 Mcg Tablet PO 112 mcg DAILY@0630 ANNIE Administration Lisinopril 20 mg 12/17/23 09:00 12/27/23 10:02 Lisinopril 20 Mg Tablet PO 20 mg DAILY ANNIE Administration Meclizine HCl 25
--- NOTE | 2023-12-28 08:03 | P.PNIM_ITS ---
Progress Note: A&P Assessment and Plan (1) Hematuria: Qualifiers: Hematuria type: unspecified type Qualified Code(s): R31.9 - Hematuria, unspecified Code(s): R31.9 - Hematuria, unspecified Status: Acute Assessment and Plan: * unclear etiology; no signs of upper urinary tract bleeding (normal CT-ab d/pelvis w/wo in 06/13, normal renal u/s this admission and clear efflux of urine from ureters on cysto. x2). He has history of bladder cancer but no recurrence identified on cysto. x2. He also has history of pelvic radiation for prostate cancer but no signs of radiation cystitis on cysto. x2 but had blood oozing from prostatic urethra during cystoscopy this admission * 12/25 * urine observed in urinal- dark red * Lindsey remains out- straight cath by Urology this morning * per urology continue the catheter out and teach intermittent catheterization * reports bladder spasm- there has ordered Pyridium * 12/26 * urology and nursing at bedside, providing self catheterization indication * patient has spontaneous voids and need for occasional intermittent catheterization * urology notes that patient will be discharged and educated to perform self catheterization. do not reinsert Lindsey * oral Amicar x1 week discharge per Urology * follow-up with urology for urodynamics and discharge- urology notes that patient likely to discharge tomorrow * 12/27 * patient and nursing expressed that patient requires further assistance with straight catheterization teaching * nursing notes that urine does not flow freely when catheter is inserted and requires flushing, which patient cannot do independently * urology aware (2) Chronic anemia: Code(s): D64.9 - Anemia, unspecified Status: Acute Assessment and Plan: * iron studies showed iron 27, TIBC 376, 7% saturation, ferritin 27.10 * hematology ordered iron infusion 12/21 * continue oral iron * 12/22 - 6.6 and received 1 U PRBC * H&H 7.03/13 this am, will continue to closely monitor * 12/25 * H&H 6.8/21.1 * transfuse 1 unit packed red blood cells * H&H 8.3/ 25.4 at 2:00 p.m. 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 as there is absolutely no outlet obstruction on cystoscopy * Uro teach him Intermittent Self Catheterization (ISC) - better shovel operator option for emptying bladder, should mitigate bladder spasms * Lindsey catheter removed this morning by urology, patient urinated independently dark red urine and clots * Amicar drip x12 hours per urology * 12/25 * urology straight cath this a.m.- order to keep Lindsey out and teach patient straight cath med * patient continues to have pain- Pyridium order per Urology * amicar drip DC'd- No PO order at this time- refer to hematology note * 12/26 * patient voids spontaneously with need for occasional self catheterization * urology and nursing at bedside to provide self-cath education * per Urology patient likely discharged tomorrow * 12/27 * patient and nursing expressed that patient requires further assistance with straight catheterization teaching * nursing notes that urine does not flow freely when catheter is inserted and requires flushing, which patient cannot do independently * urology aware (4) Abnormal urinalysis: Code(s): R82.90 - Unspecified abnormal findings in urine
--- NOTE | 2023-12-28 08:03 | PM.IMPN ---
Progress Note: A&P Assessment and Plan (1) Hematuria: Qualifiers: Hematuria type: unspecified type Qualified Code(s): R31.9 - Hematuria, unspecified Code(s): R31.9 - Hematuria, unspecified Status: Acute Assessment and Plan: unclear etiology; no signs of upper urinary tract bleeding (normal CT-abd/pelvis w/wo in 06/13, normal renal u/s this admission and clear efflux of urine from ureters on cysto. x2). He has history of bladder cancer but no recurrence identified on cysto. x2. He also has history of pelvic radiation for prostate cancer but no signs of radiation cystitis on cysto. x2 but had blood oozing from prostatic urethra during cystoscopy this admission 3/ urine observed in urinal- dark red Lindsey remains out- straight cath by Urology this morning per urology continue the catheter out and teach intermittent catheterization reports bladder spasm- there has ordered Pyridium 3 urology and nursing at bedside, providing self catheterization indication patient has spontaneous voids and need for occasional intermittent catheterization urology notes that patient will be discharged and educated to perform self catheterization. do not reinsert Lindsey oral Amicar x1 week discharge per Urology follow-up with urology for urodynamics and discharge- urology notes that patient likely to discharge tomorrow 12/27 patient and nursing expressed that patient requires further assistance with straight catheterization teaching nursing notes that urine does not flow freely when catheter is inserted and requires flushing, which patient cannot do independently urology aware (2) Chronic anemia: Code(s): D64.9 - Anemia, unspecified Status: Acute Assessment and Plan: iron studies showed iron 27, TIBC 376, 7% saturation, ferritin 27.10 hematology ordered iron infusion 3/2 continue oral iron 3/ - 6.6 and received 1 U PRBC H&H 7.03/13 this am, will continue to closely monitor 3/6 H&H 6.8/21.1 transfuse 1 unit packed red blood cells H&H 8.3/ 25.4 at 2:00 p.m. 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 as there is absolutely no outlet obstruction on cystoscopy Uro teach him Intermittent Self Catheterization (ISC) - better mcfp option for emptying bladder, should mitigate bladder spasms Lindsey catheter removed this morning by urology, patient urinated independently dark red urine and clots Amicar drip x12 hours per urology 12/25 urology straight cath this a.m.- order to keep Lindsey out and teach patient straight cath med patient continues to have pain- Pyridium order per Urology amicar drip DC'd- No PO order at this time- refer to hematology note 12/26 patient voids spontaneously with need for occasional self catheterization urology and nursing at bedside to provide self-cath education per Urology patient likely discharged tomorrow 12/27 patient and nursing expressed that patient requires further assistance with straight catheterization teaching nursing notes that urine does not flow freely when catheter is inserted and requires flushing, which patient cannot do independently urology aware (4) Abnormal urinalysis: Code(s): R82.90 - Unspecified abnormal findings in urine Status: Resolved Assessment and Plan: urine culture from clean catch, Lindsey port and catheter showed no bacterial growth 3 d/c Keflex 12/25 urine sent for culture today per Urology after straight catheterization urine culture pending 12/26 urine culture preliminary results show Gram-negative bacilli- started on IV Rocephin- will transition to p.o. at discharge 12/27 culture still with preliminary results co
[2023-12-28] MEDS: PANTOPRAZOLE 40 MG TABLET PO (09:10)
[2023-12-28] MEDS: PHENAZOPYRIDINE HCL 100 MG TABLET 200 MG PO ×2 (09:10→17:26)
[2023-12-28] MEDS: lisinopriL 20 MG TABLET PO (09:10)
[2023-12-28] MEDS: FERROUS SULFATE 325 MG TABLET DR PO ×2 (09:10→17:26)
[2023-12-28] MEDS: ROSUVASTATIN 10 MG TABLET 20 MG PO (12:54)
[2023-12-28 17:19] LABS: Lactic Acid Reflex 0.7 mmol/L (0.7-2.0)
[2023-12-28 17:24] LABS: Influenza A QL RT-PCR Negative (Negative); Influenza B QL RT-PCR Negative (Negative); RSV RNA, RT-PCR Negative (Negative); SARS-CoV-2 RNA PCR Negative (Negative)
[2023-12-28] MEDS: CEFEPIME 2 GM/NS 50 ML 2 GM/50 ML BAG IVPB (17:26)
[2023-12-28] MEDS: TAMSULOSIN HCL 0.4 MG CAPSULE PO (20:54)
[2023-12-28 21:01] LABS: MRSA (PCR) NOT DETECTED (NOT DETECTE)
[2023-12-29] VITALS (13 sets, daily range): BP systolic 102–134; BP diastolic 56–67; PULSE 79–103; RESP 14–20; TEMP 36.4–37.5; O2SAT 97–99
[2023-12-29] MEDS: CEFEPIME 2 GM/NS 50 ML 2 GM/50 ML BAG IVPB ×3 (01:16→16:55)
[2023-12-29] MEDS: WATER FOR IRRIGATION, STERILE 1,000 ML BOTTLE 1000 ML (03:43)
[2023-12-29] MEDS: LEVOTHYROXINE SODIUM 112 MCG TABLET PO (05:05)
[2023-12-29 05:41] LABS: Basophils Percent Auto 0.7 % (0.2-1.2); Eosinophils Absolute Auto 0.2 K/mm3 (0-0.3); Eosinophils Percent Auto 4.2 % (0-4.4); Hematocrit 24.5 % (42.0-52.0); Hemoglobin 8.2 g/dL (14.0-18.0); Immature Granulocyte Absolute 0.06 K/mm3 (0.00-0.031); Immature Granulocyte Percent A 1.3 % (0-0.5); Lymphocytes Absolute Auto 0.43 K/mm3 (0.9-3.2); Lymphocytes Percent Auto 9.5 % (18.3-44.2); Mean Corpuscular HGB Conc 33.5 g/dl (32-36); Mean Corpuscular Hemoglobin 28.2 pg (26-34); Mean Corpuscular Volume 84.2 fl (80-100); Mean Platelet Volume 8.2 fl (7.4-10.4); Monocytes Absolute Auto 0.6 K/mm3 (0.1-0.6); Monocytes Percent Auto 13.9 % (2.6-8.5); Neutrophils Absolute Auto 3.2 K/mm3 (1.3-6.7); Neutrophils Percent Auto 70.4 % (45.5-73.1); Platelet Count Result 200 k/mm3 (150-375); Red Blood Count 2.91 M/mm3 (4.6-6.20); Red Cell Distribution Width 17.4 % (11.5-14.5); White Blood Count 4.5 K/mm3 (4.5-10.0)
[2023-12-29 05:49] LABS: Alanine Aminotransferase 24 U/L (6-50); Alkaline Phosphatase 83 U/L (38-126); Anion Gap 5 mmol/L (8-16); Aspartate Amino Transferase 41 U/L (17-59); Bilirubin,Total 0.4 mg/dL (0.2-1.3); Blood Urea Nitrogen 11 mg/dL (9-20); Calcium 8.4 mg/dL (8.4-10.2); Carbon Dioxide 28 mmol/L (22-30); Chloride 103 mmol/L (98-107); Estimated CRCL calculation 69 ml/min; Estimated Glomerular Filt Rate > 60; Glucose 121 mg/dL (65-110); Magnesium 2.1 mg/dL (1.6-2.3); Sodium 136 mmol/L (137-145)
[2023-12-29] MEDS: ACETAMINOPHEN 325 MG TABLET 650 MG PO (05:53)
[2023-12-29 06:10] LABS: Procalcitonin 0.2 ng/mL
[2023-12-29] MEDS: FERROUS SULFATE 325 MG TABLET DR PO ×2 (08:41→16:55)
[2023-12-29] MEDS: PANTOPRAZOLE 40 MG TABLET PO (08:41)
[2023-12-29] MEDS: lisinopriL 20 MG TABLET PO (08:41)
[2023-12-29] MEDS: PHENAZOPYRIDINE HCL 100 MG TABLET 200 MG PO ×2 (08:41→16:55)
[2023-12-29] MEDS: ROSUVASTATIN 10 MG TABLET 20 MG PO (08:41)
--- NOTE | 2023-12-29 08:48 | P.PNIM_ITS ---
Progress Note: A&P Assessment and Plan (1) Hematuria: Qualifiers: Hematuria type: unspecified type Qualified Code(s): R31.9 - Hematuria, unspecified Code(s): R31.9 - Hematuria, unspecified Status: Acute Assessment and Plan: * unclear etiology; no signs of upper urinary tract bleeding (normal CT-ab d/pelvis w/wo in 06/13, normal renal u/s this admission and clear efflux of urine from ureters on cysto. x2). He has history of bladder cancer but no recurrence identified on cysto. x2. He also has history of pelvic radiation for prostate cancer but no signs of radiation cystitis on cysto. x2 but had blood oozing from prostatic urethra during cystoscopy this admission * 12/25 * urine observed in urinal- dark red * Lindsey remains out- straight cath by Urology this morning * per urology continue the catheter out and teach intermittent catheterization * reports bladder spasm- there has ordered Pyridium * 12/26 * urology and nursing at bedside, providing self catheterization indication * patient has spontaneous voids and need for occasional intermittent catheterization * urology notes that patient will be discharged and educated to perform self catheterization. do not reinsert Lindsey * oral Amicar x1 week discharge per Urology * follow-up with urology for urodynamics and discharge- urology notes that patient likely to discharge tomorrow * 12/27 * patient and nursing expressed that patient requires further assistance with straight catheterization teaching * nursing notes that urine does not flow freely when catheter is inserted and requires flushing, which patient cannot do independently * urology aware * 12/28 * patient able void pass clots- however still required further catheterization by nursing with remove more urine and clots * hemoglobin 8.2 today * urology aware of ongoing clot hematuria. * neurology discussed potential need for urinary diversion potentially involving nephrostomy tubes (2) Chronic anemia: Code(s): D64.9 - Anemia, unspecified Status: Acute Assessment and Plan: * iron studies showed iron 27, TIBC 376, 7% saturation, ferritin 27.10 * hematology ordered iron infusion 12/21 * continue oral iron * 12/22 - 6.6 and received 1 U PRBC * H&H 7.523 this am, will continue to closely monitor * 12/25 * H&H 6.8/21.1 * transfuse 1 unit packed red blood cells * H&H 8.3/ 25.4 at 2:00 p.m. 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 as there is absolutely no outlet obstruction on cystoscopy * Uro teach him Intermittent Self Catheterization (ISC) - better dedicated intermodal truck driver option for emptying bladder, should mitigate bladder spasms * Lindsey catheter removed this morning by urology, patient urinated independently dark red urine and clots * Amicar micah x12 hours per urology * 12/25 * urology straight cath this a.m.- order to keep Lindsey out and teach patient straight cath med * patient continues to have pain- Pyridium order per Urology * estefanicar micah DC'd- No PO order at this time- refer to hematology note * 12/26 * patient voids spontaneously with need for occasional self catheterization * urology and nursing at bedside to provide self-cath education * p
--- NOTE | 2023-12-29 08:48 | PM.IMPN ---
Progress Note: A&P Assessment and Plan (1) Hematuria: Qualifiers: Hematuria type: unspecified type Qualified Code(s): R31.9 - Hematuria, unspecified Code(s): R31.9 - Hematuria, unspecified Status: Acute Assessment and Plan: unclear etiology; no signs of upper urinary tract bleeding (normal CT-abd/pelvis w/wo in 06/13, normal renal u/s this admission and clear efflux of urine from ureters on cysto. x2). He has history of bladder cancer but no recurrence identified on cysto. x2. He also has history of pelvic radiation for prostate cancer but no signs of radiation cystitis on cysto. x2 but had blood oozing from prostatic urethra during cystoscopy this admission 3/ urine observed in urinal- dark red Lindsey remains out- straight cath by Urology this morning per urology continue the catheter out and teach intermittent catheterization reports bladder spasm- there has ordered Pyridium 3 urology and nursing at bedside, providing self catheterization indication patient has spontaneous voids and need for occasional intermittent catheterization urology notes that patient will be discharged and educated to perform self catheterization. do not reinsert Lindsey oral Amicar x1 week discharge per Urology follow-up with urology for urodynamics and discharge- urology notes that patient likely to discharge tomorrow 12/27 patient and nursing expressed that patient requires further assistance with straight catheterization teaching nursing notes that urine does not flow freely when catheter is inserted and requires flushing, which patient cannot do independently urology aware 12/28 patient able void pass clots- however still required further catheterization by nursing with remove more urine and clots hemoglobin 8.2 today urology aware of ongoing clot hematuria. neurology discussed potential need for urinary diversion potentially involving nephrostomy tubes (2) Chronic anemia: Code(s): D64.9 - Anemia, unspecified Status: Acute Assessment and Plan: iron studies showed iron 27, TIBC 376, 7% saturation, ferritin 27.10 hematology ordered iron infusion 3/2 continue oral iron / - 6.6 and received 1 U PRBC H&H 7.5 this am, will continue to closely monitor 3/6 H&H 6.8/21.1 transfuse 1 unit packed red blood cells H&H 8.3/ 25.4 at 2:00 p.m. 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 as there is absolutely no outlet obstruction on cystoscopy Uro teach him Intermittent Self Catheterization (ISC) - better intermission coordinator option for emptying bladder, should mitigate bladder spasms Lindsey catheter removed this morning by urology, patient urinated independently dark red urine and clots Amicar drip x12 hours per urology 12/25 urology straight cath this a.m.- order to keep Lindsey out and teach patient straight cath med patient continues to have pain- Pyridium order per Urology amicar drip DC'd- No PO order at this time- refer to hematology note 12/26 patient voids spontaneously with need for occasional self catheterization urology and nursing at bedside to provide self-cath education per Urology patient likely discharged tomorrow 12/27 patient and nursing expressed that patient requires further assistance with straight catheterization teaching nursing notes that urine does not flow freely when catheter is inserted and requires flushing, which patient cannot do independently urology aware 12/28 patient able void pass clots- however still required further catheterization by nursing with remove more urine and clots hemoglobin 8.2 toda
--- NOTE | 2023-12-29 08:48 | WPDUROPN2 ---
Progress Note: A&P Assessment and Plan (1) History of bladder cancer: Code(s): Z85.51 - Personal history of malignant neoplasm of bladder Status: Acute (2) H/O prostate cancer: Code(s): Z85.46 - Personal history of malignant neoplasm of prostate Status: Acute (3) Hematuria: Qualifiers: Hematuria type: gross Qualified Code(s): R31.0 - Gross hematuria Code(s): R31.9 - Hematuria, unspecified Status: Acute (4) Acute urinary retention: Code(s): R33.8 - Other retention of urine Status: Acute Plan Very difficult situation. We have had great difficulty with continued hematuria. Patient is tolerating catheterizations but there continues to be clots. He is unable to do catheterizations independently which is holding up his hospital discharge. I discussed with Dr. Matias this morning. Ultimately we may need to consider urinary diversion. The best form of urinary diversion would be upper tract diversion to divert all urine away from his bladder. This would involve bilateral nephrostomy tubes. Will get renal ultrasound today to see if there is any hydronephrosis. If there is no significant hydronephrosis this makes nephrostomy tubes difficult. He may require transfer to another facility for nephrostomy tube placement. Hyperbaric oxygen is a consideration, but he would likely need to be discharged home 1st and arrange it for this to be done on an outpatient basis. Subjective Subjective Date/Time Seen: 12/29/23 08:48 Interval history: He is more comfortable without the Lindsey catheter. He is requiring intermittent catheterization by the nursing staff. They have to irrigate clots out with catheterizations. He is unable to do self catheterization independently. Exam Narrative: No acute distress Alert orient x3 Resting comfortably I saw as well over face time and we discussed the situation Objective Data Vital Signs Vital Signs: Vital Signs - 24 hr 12/28/23 09:12 12/28/23 09:13 12/28/23 15:01 Temperature 97.1 F L 98.5 F 101.7 F H Pulse Rate Respiratory Rate Blood Pressure Pulse Oximetry Oxygen Delivery 12/28/23 16:00 12/28/23 12:00 12/28/23 16:00 Temperature 97.8 F Pulse Rate 110 H 83 103 H Respiratory Rate 18 Blood Pressure 104/58 L Pulse Oximetry 95 Oxygen Delivery 12/28/23 21:06 12/28/23 20:00 12/28/23 20:30 Temperature 99.4 F 99.8 F H Pulse Rate 90 Respiratory Rate 20 Blood Pressure 124/59 L Pulse Oximetry 97 Oxygen Delivery Room Air 12/28/23 22:05 12/28/23 20:00 12/29/23 00:00 Temperature 98.6 F Pulse Rate 87 96 Respiratory Rate Blood Pressure Pulse Oximetry Oxygen Delivery 12/29/23 04:00 12/29/23 05:53 12/29/23 06:34 Temperature 99.5 F 99 F Pulse Rate 79 Respiratory Rate Blood Pressure Pulse Oximetry Oxygen Delivery 12/29/23 05:25 12/29/23 08:45 Temperature 99.5 F 98.1 F Pulse Rate 90 Respiratory Rate 20 Blood Pressure 120/57 L Pulse Oximetry 97 Oxygen Delivery Intake/Output Intake/Output: Intake & Output 12/26/23 12/27/23 12/28/23 12/29/23 23:59 23:59 23:59 23:59 Intake Total 1408 1305 1980 450 Output Total 6370 0510 1965 950 [facility] -1262 -215 -335 -500 Meds/Results Medications: Active Medications Generic Name Dose Route Start Last Admin Trade Name Freq PRN Reason Stop Dose Admin Acetaminophen 650 mg 12/18/23 17:28 12/29/23 05:53 Acetaminophen 325 Mg Tablet PO 650 mg Q4H PRN Administration Pain Rated 1-3 Hydrocodone Bitart/Acetaminophen 1 tab 12/25/23 08:04 12/27/23 17:22 Hydrocodone/Acetaminophen (*Crx) 7.5-325 Mg Tablet PO 1 tab Q6H PRN Administration Pain Rated 4-6 Alprazolam 0.5 mg 12/25/23 08:23 12/26/23 16:33 Alprazolam (*Crx) 0.5 Mg Tablet PO 0.5 mg Q8H PRN Administration Anxiety Docusate Sodium 100 mg 12/21/23 10:36 12/21/23 14:25 Docusat
[2023-12-29] MEDS: TAMSULOSIN HCL 0.4 MG CAPSULE PO (21:17)
[2023-12-29] MEDS: HYDROcodone/acetaminophen (*CRX) 7.5-325 MG TABLET 1 TAB PO (21:30)
[2023-12-30] VITALS (8 sets, daily range): BP systolic 106–134; BP diastolic 60–73; PULSE 69–86; RESP 16–20; TEMP 36.6–37.3; O2SAT 99–100
[2023-12-30] MEDS: CEFEPIME 2 GM/NS 50 ML 2 GM/50 ML BAG IVPB ×3 (01:02→17:11)
--- NOTE | 2023-12-30 03:33 | PC.NURSE ---
Daylight Savings Time For Daylight Savings Time Ending in the Fall - Clocks are moved back. For Daylight Savings Time Beginning in the Spring - Clocks are moved ahead. For [facility], the time of change occurs at 0200 hrs. Time is taken from the linux server administrator. This entry on the patient's chart recognizes the change in time reflected during documentation. Example: 2 entries for vital signs may be charted for 0200 hrs.
[2023-12-30] MEDS: LEVOTHYROXINE SODIUM 112 MCG TABLET PO (05:33)
[2023-12-30 06:15] LABS: Basophils Percent Auto 0.5 % (0.2-1.2); Eosinophils Absolute Auto 0.3 K/mm3 (0-0.3); Hematocrit 22.7 % (42.0-52.0); Hemoglobin 7.2 g/dL (14.0-18.0); Immature Granulocyte Absolute 0.05 K/mm3 (0.00-0.031); Immature Granulocyte Percent A 1.2 % (0-0.5); Lymphocytes Absolute Auto 0.67 K/mm3 (0.9-3.2); Lymphocytes Percent Auto 15.7 % (18.3-44.2); Mean Corpuscular HGB Conc 31.7 g/dl (32-36); Mean Corpuscular Hemoglobin 27.3 pg (26-34); Monocytes Absolute Auto 0.6 K/mm3 (0.1-0.6); Neutrophils Absolute Auto 2.6 K/mm3 (1.3-6.7); Neutrophils Percent Auto 60.6 % (45.5-73.1); Platelet Count Result 253 k/mm3 (150-375); Red Blood Count 2.64 M/mm3 (4.6-6.20); Red Cell Distribution Width 17.6 % (11.5-14.5); White Blood Count 4.3 K/mm3 (4.5-10.0)
[2023-12-30 06:29] LABS: Alanine Aminotransferase 28 U/L (6-50); Albumin Level 2.9 g/dL (3.5-5.1); Alkaline Phosphatase 77 U/L (38-126); Anion Gap 1 mmol/L (8-16); Aspartate Amino Transferase 46 U/L (17-59); Bilirubin,Total 0.3 mg/dL (0.2-1.3); Blood Urea Nitrogen 11 mg/dL (9-20); Calcium 8.4 mg/dL (8.4-10.2); Carbon Dioxide 27 mmol/L (22-30); Chloride 106 mmol/L (98-107); Estimated CRCL calculation 69 ml/min; Estimated Glomerular Filt Rate > 60; Glucose 102 mg/dL (65-110); Potassium 3.5 mmol/L (3.4-5.0); Sodium 134 mmol/L (137-145)
[2023-12-30 06:54] LABS: Procalcitonin 0.1 ng/mL
--- NOTE | 2023-12-30 08:45 | P.PNIM_ITS ---
Progress Note: A&P Assessment and Plan (1) Hematuria: Qualifiers: Hematuria type: unspecified type Qualified Code(s): R31.9 - Hematuria, unspecified Code(s): R31.9 - Hematuria, unspecified Status: Acute Assessment and Plan: * unclear etiology; no signs of upper urinary tract bleeding (normal CT-ab d/pelvis w/wo in 06/13, normal renal u/s this admission and clear efflux of urine from ureters on cysto. x2). He has history of bladder cancer but no recurrence identified on cysto. x2. He also has history of pelvic radiation for prostate cancer but no signs of radiation cystitis on cysto. x2 but had blood oozing from prostatic urethra during cystoscopy this admission * 12/25 * urine observed in urinal- dark red * Lindsey remains out- straight cath by Urology this morning * per urology continue the catheter out and teach intermittent catheterization * reports bladder spasm- there has ordered Pyridium * 12/26 * urology and nursing at bedside, providing self catheterization indication * patient has spontaneous voids and need for occasional intermittent catheterization * urology notes that patient will be discharged and educated to perform self catheterization. do not reinsert Lindsey * oral Amicar x1 week discharge per Urology * follow-up with urology for urodynamics and discharge- urology notes that patient likely to discharge tomorrow * 12/27 * patient and nursing expressed that patient requires further assistance with straight catheterization teaching * nursing notes that urine does not flow freely when catheter is inserted and requires flushing, which patient cannot do independently * urology aware * 12/28 * patient able void pass clots- however still required further catheterization by nursing with remove more urine and clots * hemoglobin 8.2 today * urology aware of ongoing clot hematuria. * urology discussed potential need for urinary diversion potentially involving nephrostomy tubes * 12/29 * patient continues to void, passed clots on his own, and require catheterization which also produces clots * hemoglobin 7.2 today- repeat labs for closer monitoring * urology aware * urology discussed with patient the concept of nephrostomy tubes, and procedure would likely be performed at an outside hospital (2) Chronic anemia: Code(s): D64.9 - Anemia, unspecified Status: Acute Assessment and Plan: * iron studies showed iron 27, TIBC 376, 7% saturation, ferritin 27.10 * hematology ordered iron infusion 12/21 * continue oral iron * 3/3 - 6.6 and received 1 U PRBC * H&H 7.5/23 this am, will continue to closely monitor * 3/6 * H&H 6.8/21.1 * transfuse 1 unit packed red blood cells * H&H 8.3/ 25.4 at 2:00 p.m. 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
--- NOTE | 2023-12-30 08:45 | PM.IMPN ---
Progress Note: A&P Assessment and Plan (1) Hematuria: Qualifiers: Hematuria type: unspecified type Qualified Code(s): R31.9 - Hematuria, unspecified Code(s): R31.9 - Hematuria, unspecified Status: Acute Assessment and Plan: unclear etiology; no signs of upper urinary tract bleeding (normal CT-abd/pelvis w/wo in 06/13, normal renal u/s this admission and clear efflux of urine from ureters on cysto. x2). He has history of bladder cancer but no recurrence identified on cysto. x2. He also has history of pelvic radiation for prostate cancer but no signs of radiation cystitis on cysto. x2 but had blood oozing from prostatic urethra during cystoscopy this admission 12/25 urine observed in urinal- dark red Lindsey remains out- straight cath by Urology this morning per urology continue the catheter out and teach intermittent catheterization reports bladder spasm- there has ordered Pyridium 3 urology and nursing at bedside, providing self catheterization indication patient has spontaneous voids and need for occasional intermittent catheterization urology notes that patient will be discharged and educated to perform self catheterization. do not reinsert Lindsey oral Amicar x1 week discharge per Urology follow-up with urology for urodynamics and discharge- urology notes that patient likely to discharge tomorrow 12/27 patient and nursing expressed that patient requires further assistance with straight catheterization teaching nursing notes that urine does not flow freely when catheter is inserted and requires flushing, which patient cannot do independently urology aware 12/28 patient able void pass clots- however still required further catheterization by nursing with remove more urine and clots hemoglobin 8.2 today urology aware of ongoing clot hematuria. urology discussed potential need for urinary diversion potentially involving nephrostomy tubes 12/29 patient continues to void, passed clots on his own, and require catheterization which also produces clots hemoglobin 7.2 today- repeat labs for closer monitoring urology aware urology discussed with patient the concept of nephrostomy tubes, and procedure would likely be performed at an outside hospital (2) Chronic anemia: Code(s): D64.9 - Anemia, unspecified Status: Acute Assessment and Plan: iron studies showed iron 27, TIBC 376, 7% saturation, ferritin 27.10 hematology ordered iron infusion 3/2 continue oral iron 3/ - 6.6 and received 1 U PRBC H&H 7.5/23 this am, will continue to closely monitor 3/6 H&H 6.8/21.1 transfuse 1 unit packed red blood cells H&H 8.3/ 25.4 at 2:00 p.m. 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 as there is absolutely no outlet obstruction on cystoscopy Uro teach him Intermittent Self Catheterization (ISC) - better cream separator operator option for emptying bladder, should mitigate bladder spasms Lindsey catheter removed this morning by urology, patient urinated independently dark red urine and clots Amicar drip x12 hours per urology 12/25 urology straight cath this a.m.- order to keep Lindsey out and teach patient straight cath med patient continues to have pain- Pyridium order per Urology amicar drip DC'd- No PO order at this time- refer to hematology note 12/26 patient voids spontaneously with need for occasional self catheterization urology and nursing at bedside to provide self-cath education per Urology patient likely discharged tomorrow 12/27 patient and n
[2023-12-30] MEDS: lisinopriL 20 MG TABLET PO (09:24)
[2023-12-30] MEDS: PHENAZOPYRIDINE HCL 100 MG TABLET 200 MG PO ×2 (09:24→17:11)
[2023-12-30] MEDS: PANTOPRAZOLE 40 MG TABLET PO (09:25)
[2023-12-30] MEDS: ROSUVASTATIN 10 MG TABLET 20 MG PO (09:25)
[2023-12-30] MEDS: HYDROcodone/acetaminophen (*CRX) 7.5-325 MG TABLET 1 TAB PO (09:29)
[2023-12-30] MEDS: FERROUS SULFATE 325 MG TABLET DR PO ×2 (09:30→17:11)
--- NOTE | 2023-12-30 09:44 | WPDUROPN2 ---
Progress Note: A&P Assessment and Plan (1) History of bladder cancer: Code(s): Z85.51 - Personal history of malignant neoplasm of bladder Status: Acute (2) H/O prostate cancer: Code(s): Z85.46 - Personal history of malignant neoplasm of prostate Status: Acute (3) Gross hematuria: Code(s): R31.0 - Gross hematuria Status: Acute (4) Acute urinary retention: Code(s): R33.8 - Other retention of urine Status: Acute Plan Options limited. One option would be urinary diversion with bilateral nephrostomy tubes. Unfortunately ultrasound shows no hydronephrosis. Unclear if this could be done at this facility. Will need to be discussed with Radiology if that is possible. If not may require transfer to an alternative facility where nephrostomy tubes can be placed. Continue intermittent catheterization. Prefer to avoid Lindsey catheter Subjective Subjective Date/Time Seen: 12/30/23 09:44 Interval history: Is being catheterized for tea-colored urine. Is also voiding very little on his own. Continues to pass small clots. Exam Narrative: No acute distress Normal breathing Urine bloody without clots Objective Data Vital Signs Vital Signs: Vital Signs - 24 hr 12/29/23 08:45 12/29/23 12:00 12/29/23 14:00 Temperature 98.1 F 97.5 F L Pulse Rate 90 88 Respiratory Rate 16 Blood Pressure 128/67 Pulse Oximetry 97 Oxygen Delivery 12/29/23 16:12 12/29/23 18:06 12/29/23 16:00 Temperature 97.7 F Pulse Rate 96 92 Respiratory Rate 14 Blood Pressure 134/65 Pulse Oximetry 99 Oxygen Delivery Room Air 12/29/23 20:50 12/29/23 20:00 12/29/23 20:00 Temperature 97.9 F Pulse Rate 95 103 H Respiratory Rate 16 Blood Pressure 102/56 L Pulse Oximetry 99 Oxygen Delivery Room Air 12/30/23 00:00 12/30/23 04:00 Temperature Pulse Rate 82 69 Respiratory Rate Blood Pressure Pulse Oximetry Oxygen Delivery Intake/Output Intake/Output: Intake & Output 12/27/23 12/28/23 12/29/23 12/31/23 23:59 23:59 23:59 00:59 Intake Total 1305 1980 1100 50 Output Total 1520 2315 1375 200 Balance -215 -335 -275 -150 Meds/Results Medications: Active Medications Generic Name Dose Route Start Last Admin Trade Name Amina PRN Reason Stop Dose Admin Acetaminophen 650 mg 12/18/23 17:28 12/29/23 05:53 Acetaminophen 325 Mg Tablet PO 650 mg Q4H PRN Administration Pain Rated 1-3 Hydrocodone Bitart/Acetaminophen 1 tab 12/25/23 08:04 12/30/23 09:29 Hydrocodone/Acetaminophen (*Crx) 7.5-325 Mg Tablet PO 1 tab Q6H PRN Administration Pain Rated 4-6 Alprazolam 0.5 mg 12/25/23 08:23 12/26/23 16:33 Alprazolam (*Crx) 0.5 Mg Tablet PO 0.5 mg Q8H PRN Administration Anxiety Docusate Sodium 100 mg 12/21/23 10:36 12/21/23 14:25 Docusate Sodium 100 Mg Capsule PO 100 mg Q12H PRN Administration Constipation Ferrous Sulfate 325 mg 12/21/23 17:00 12/30/23 09:30 Ferrous Sulfate [address] PO 325 mg BID ANNIE Administration Cefepime HCl 2 gm in 50 mls @ 100 mls/hr 12/28/23 17:00 12/30/23 09:24 Maxipime 2 Gm/Ns 50 Ml IVPB 100 mls/hr Q8H ANNIE Administration Levothyroxine Sodium 112 mcg 12/17/23 06:30 12/30/23 05:33 Levothyroxine Sodium 112 Mcg Tablet PO 112 mcg DAILY@0630 ANNIE Administration Lisinopril 20 mg 12/17/23 09:00 12/30/23 09:24 Lisinopril 20 Mg Tablet PO 20 mg DAILY ANNIE Administration Meclizine HCl 25 mg 12/16/23 22:37 12/19/23 07:52 Meclizine Hcl 25 Mg Tablet PO 25 mg BID PRN Administration dizziness Morphine Sulfate 4 mg 12/23/23 23:34 12/27/23 00:40 Morphine Sulfate (*Crx) 4 Mg/Ml Inj IV PUSH 4 mg Q2H PRN Administration Pain Rated 7-10 Ondansetron HCl 4 mg 12/19/23 10:07 Ondansetron Inj 4 Mg/2 Ml Vial IV PUSH ONCE PRN Nausea Pantoprazole Sodium 40 mg 12/17/23 09:00 12/30/23 09:25
[2023-12-30 18:50] LABS: Hemoglobin 8.1 g/dL (14.0-18.0); Mean Corpuscular HGB Conc 32.4 g/dl (32-36); Mean Corpuscular Hemoglobin 27.8 pg (26-34); Mean Corpuscular Volume 85.9 fl (80-100); Mean Platelet Volume 8.8 fl (7.4-10.4); Platelet Count Result 325 k/mm3 (150-375); Red Blood Count 2.91 M/mm3 (4.6-6.20); Red Cell Distribution Width 17.7 % (11.5-14.5); White Blood Count 5.1 K/mm3 (4.5-10.0)
[2023-12-30 19:03] LABS: Alanine Aminotransferase 35 U/L (6-50); Albumin Level 3.5 g/dL (3.5-5.1); Alkaline Phosphatase 88 U/L (38-126); Anion Gap 6 mmol/L (8-16); Aspartate Amino Transferase 57 U/L (17-59); Bilirubin,Total 0.4 mg/dL (0.2-1.3); Blood Urea Nitrogen 14 mg/dL (9-20); Calcium 8.7 mg/dL (8.4-10.2); Carbon Dioxide 25 mmol/L (22-30); Chloride 105 mmol/L (98-107); Estimated CRCL calculation 62 ml/min; Estimated Glomerular Filt Rate > 60; Glucose 96 mg/dL (65-110); Magnesium 2.3 mg/dL (1.6-2.3); Potassium 3.5 mmol/L (3.4-5.0); Sodium 136 mmol/L (137-145)
[2023-12-30] MEDS: TAMSULOSIN HCL 0.4 MG CAPSULE PO (20:26)
[2023-12-31] VITALS (7 sets, daily range): BP systolic 126–136; BP diastolic 67–79; PULSE 76–88; RESP 16–20; TEMP 36.6–36.8; O2SAT 96–99
[2023-12-31] MEDS: CEFEPIME 2 GM/NS 50 ML 2 GM/50 ML BAG IVPB ×2 (01:05→09:57)
[2023-12-31] MEDS: LEVOTHYROXINE SODIUM 112 MCG TABLET PO (05:52)
[2023-12-31 06:15] LABS: Basophils Absolute Auto 0.1 K/mm3 (0.0-0.1); Eosinophils Absolute Auto 0.4 K/mm3 (0-0.3); Eosinophils Percent Auto 6.9 % (0-4.4); Hematocrit 22.5 % (42.0-52.0); Hemoglobin 7.1 g/dL (14.0-18.0); Immature Granulocyte Absolute 0.05 K/mm3 (0.00-0.031); Lymphocytes Absolute Auto 0.68 K/mm3 (0.9-3.2); Mean Corpuscular HGB Conc 31.6 g/dl (32-36); Mean Corpuscular Hemoglobin 27.2 pg (26-34); Mean Corpuscular Volume 86.2 fl (80-100); Monocytes Absolute Auto 0.5 K/mm3 (0.1-0.6); Monocytes Percent Auto 9.7 % (2.6-8.5); Neutrophils Absolute Auto 3.6 K/mm3 (1.3-6.7); Neutrophils Percent Auto 68.4 % (45.5-73.1); Platelet Count Result 287 k/mm3 (150-375); Red Blood Count 2.61 M/mm3 (4.6-6.20); Red Cell Distribution Width 17.6 % (11.5-14.5); White Blood Count 5.2 K/mm3 (4.5-10.0)
[2023-12-31 06:39] LABS: Alanine Aminotransferase 45 U/L (6-50); Albumin Level 2.9 g/dL (3.5-5.1); Alkaline Phosphatase 77 U/L (38-126); Anion Gap 1 mmol/L (8-16); Aspartate Amino Transferase 72 U/L (17-59); Bilirubin,Total 0.3 mg/dL (0.2-1.3); Blood Urea Nitrogen 12 mg/dL (9-20); Calcium 8.4 mg/dL (8.4-10.2); Carbon Dioxide 28 mmol/L (22-30); Chloride 108 mmol/L (98-107); Estimated CRCL calculation 62 ml/min; Estimated Glomerular Filt Rate > 60; Glucose 102 mg/dL (65-110); Potassium 4.1 mmol/L (3.4-5.0); Sodium 137 mmol/L (137-145)
--- NOTE | 2023-12-31 07:12 | P.PNIM_ITS ---
Progress Note: A&P Assessment and Plan (1) Hematuria: Qualifiers: Hematuria type: unspecified type Qualified Code(s): R31.9 - Hematuria, unspecified Code(s): R31.9 - Hematuria, unspecified Status: Acute Assessment and Plan: * unclear etiology; no signs of upper urinary tract bleeding (normal CT-ab d/pelvis w/wo in 06/13, normal renal u/s this admission and clear efflux of urine from ureters on cysto. x2). He has history of bladder cancer but no recurrence identified on cysto. x2. He also has history of pelvic radiation for prostate cancer but no signs of radiation cystitis on cysto. x2 but had blood oozing from prostatic urethra during cystoscopy this admission * 12/25 * urine observed in urinal- dark red * Lindsey remains out- straight cath by Urology this morning * per urology continue the catheter out and teach intermittent catheterization * reports bladder spasm- there has ordered Pyridium * 12/26 * urology and nursing at bedside, providing self catheterization indication * patient has spontaneous voids and need for occasional intermittent catheterization * urology notes that patient will be discharged and educated to perform self catheterization. do not reinsert Lindsey * oral Amicar x1 week discharge per Urology * follow-up with urology for urodynamics and discharge- urology notes that patient likely to discharge tomorrow * 12/27 * patient and nursing expressed that patient requires further assistance with straight catheterization teaching * nursing notes that urine does not flow freely when catheter is inserted and requires flushing, which patient cannot do independently * urology aware * 12/28 * patient able void pass clots- however still required further catheterization by nursing with remove more urine and clots * hemoglobin 8.2 today * urology aware of ongoing clot hematuria. * urology discussed potential need for urinary diversion potentially involving nephrostomy tubes * 12/29 * patient continues to void, passed clots on his own, and require catheterization which also produces clots * hemoglobin 7.2 today- repeat labs for closer monitoring * urology aware * urology discussed with patient the concept of nephrostomy tubes, and procedure would likely be performed at an outside hospital * 12/30 * patient continues to void spontaneously, expresses that is still slightly bloody * repeat hemoglobin yesterday was 8.1 * hemoglobin on a.m. labs today 7.1. will repeat labs for close monitoring * urology noted the patient voids spontaneously, recommend oral Amicar for 1 week at discharge, recommend to stop straight catheterizations and suggested the patient follow-up outpatient for urodynamic studies if retention reoccurs (2) Chronic anemia: Code(s): D64.9 - Anemia, unspecified Status: Acute Assessment and Plan: * iron studies showed iron 27, TIBC 376, 7% saturation, ferritin 27.10 * hematology ordered iron infusion 12/21 * continue oral iron * 12/22 - 6.6 and received 1 U PRBC * H&H 7.5/23 this am, will continue to closely monitor * 12/25 * H&H 6.8/21.1 * transfuse 1 unit packed red blood cells * H&H 8.3/ 25.4 at 2:00 p.m. * continue to monitor * 12/26 * H&H 8.4/ 26.2 * 12/27 * H&H 8.6/ 26.8 * continue oral iron * 12/28 * H&H 8.2/ 24.5 * continue oral iron * continue to trend * transfuse as needed * 12/29 * H&H 7.2/ 22.7 * repeat labs for closer monitoring transfuse as needed * 12/30 * repeat H&H on yesterday was 8.1/25.0 * H
--- NOTE | 2023-12-31 07:12 | PM.IMPN ---
Progress Note: A&P Assessment and Plan (1) Hematuria: Qualifiers: Hematuria type: unspecified type Qualified Code(s): R31.9 - Hematuria, unspecified Code(s): R31.9 - Hematuria, unspecified Status: Acute Assessment and Plan: unclear etiology; no signs of upper urinary tract bleeding (normal CT-abd/pelvis w/wo in 06/13, normal renal u/s this admission and clear efflux of urine from ureters on cysto. x2). He has history of bladder cancer but no recurrence identified on cysto. x2. He also has history of pelvic radiation for prostate cancer but no signs of radiation cystitis on cysto. x2 but had blood oozing from prostatic urethra during cystoscopy this admission 12/25 urine observed in urinal- dark red Lindsey remains out- straight cath by Urology this morning per urology continue the catheter out and teach intermittent catheterization reports bladder spasm- there has ordered Pyridium 12/26 urology and nursing at bedside, providing self catheterization indication patient has spontaneous voids and need for occasional intermittent catheterization urology notes that patient will be discharged and educated to perform self catheterization. do not reinsert Lindsey oral Amicar x1 week discharge per Urology follow-up with urology for urodynamics and discharge- urology notes that patient likely to discharge tomorrow 12/27 patient and nursing expressed that patient requires further assistance with straight catheterization teaching nursing notes that urine does not flow freely when catheter is inserted and requires flushing, which patient cannot do independently urology aware 12/28 patient able void pass clots- however still required further catheterization by nursing with remove more urine and clots hemoglobin 8.2 today urology aware of ongoing clot hematuria. urology discussed potential need for urinary diversion potentially involving nephrostomy tubes 12/29 patient continues to void, passed clots on his own, and require catheterization which also produces clots hemoglobin 7.2 today- repeat labs for closer monitoring urology aware urology discussed with patient the concept of nephrostomy tubes, and procedure would likely be performed at an outside hospital 12/30 patient continues to void spontaneously, expresses that is still slightly bloody repeat hemoglobin yesterday was 8.1 hemoglobin on a.m. labs today 7.1. will repeat labs for close monitoring urology noted the patient voids spontaneously, recommend oral Amicar for 1 week at discharge, recommend to stop straight catheterizations and suggested the patient follow-up outpatient for urodynamic studies if retention reoccurs (2) Chronic anemia: Code(s): D64.9 - Anemia, unspecified Status: Acute Assessment and Plan: iron studies showed iron 27, TIBC 376, 7% saturation, ferritin 27.10 hematology ordered iron infusion 3/2 continue oral iron 3/3 - 6.6 and received 1 U PRBC H&H 7.5/23 this am, will continue to closely monitor 3/6 H&H 6.8/21.1 transfuse 1 unit packed red blood cells H&H 8.3/ 25.4 at 2:00 p.m. 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
--- NOTE | 2023-12-31 07:42 | WPDUROPN2 ---
Progress Note: A&P Assessment and Plan (1) History of bladder cancer: Code(s): Z85.51 - Personal history of malignant neoplasm of bladder Status: Acute (2) H/O prostate cancer: Code(s): Z85.46 - Personal history of malignant neoplasm of prostate Status: Acute (3) Hematuria: Qualifiers: Hematuria type: gross Qualified Code(s): R31.0 - Gross hematuria Code(s): R31.9 - Hematuria, unspecified Status: Acute Assessment and Plan: Hematuria has resolved and voiding sponteneously. Stop intermittent self-catheterizations. Home on oral Amicar x1-week. Outpatient urodynamics if retention recurs. Subjective Subjective Date/Time Seen: 12/31/23 07:42 Interval history: Voiding spontaneously [id number] Urine clear, no clots Review of Systems Review of Systems: All systems reviewed & are unremarkable except as noted in HPI and below Cardiovascular: Cardiovascular: Denies chest pain, Denies lightheadedness, Denies palpitations and Denies dyspnea Respiratory: Respiratory: Denies dyspnea Gastrointestinal: Gastrointestinal: Denies diarrhea, Denies nausea and Denies vomiting Genitourinary: Genitourinary: Denies hematuria and Denies dysuria Endocrine: Endocrine: Denies palpitations Objective Data Vital Signs Vital Signs: Vital Signs - 24 hr 12/30/23 08:02 12/30/23 12:03 12/30/23 13:45 Temperature Pulse Rate 83 81 Respiratory Rate Blood Pressure Pulse Oximetry Oxygen Delivery Room Air 12/30/23 14:00 12/30/23 16:02 12/30/23 20:00 Temperature 97.8 F Pulse Rate 86 84 Respiratory Rate 20 Blood Pressure 106/60 Pulse Oximetry 99 Oxygen Delivery Room Air 12/30/23 20:35 12/30/23 20:00 12/31/23 00:00 Temperature 99.1 F Pulse Rate 86 82 86 Respiratory Rate 16 Blood Pressure 134/73 Pulse Oximetry 100 Oxygen Delivery 12/31/23 04:00 12/31/23 05:22 Temperature 98.1 F Pulse Rate 77 88 Respiratory Rate 20 Blood Pressure 131/67 Pulse Oximetry 96 Oxygen Delivery Intake/Output Intake/Output: Intake & Output 12/28/23 12/29/23 12/30/23 12/31/23 22:59 22:59 23:59 23:59 Intake Total 200 Output Total Balance 200 Meds/Results Medications: Active Medications Generic Name Dose Route Start Last Admin Trade Name Amina PRN Reason Stop Dose Admin Acetaminophen 650 mg 12/18/23 17:28 12/29/23 05:53 Acetaminophen 325 Mg Tablet PO 650 mg Q4H PRN Administration Pain Rated 1-3 Hydrocodone Bitart/Acetaminophen 1 tab 12/25/23 08:04 12/30/23 09:29 Hydrocodone/Acetaminophen (*Crx) 7.5-325 Mg Tablet PO 1 tab Q6H PRN Administration Pain Rated 4-6 Alprazolam 0.5 mg 12/25/23 08:23 12/26/23 16:33 Alprazolam (*Crx) 0.5 Mg Tablet PO 0.5 mg Q8H PRN Administration Anxiety Docusate Sodium 100 mg 12/21/23 10:36 12/21/23 14:25 Docusate Sodium 100 Mg Capsule PO 100 mg Q12H PRN Administration Constipation Ferrous Sulfate 325 mg 12/21/23 17:00 12/30/23 17:11 Ferrous Sulfate [address] PO 325 mg BID ANNIE Administration Cefepime HCl 2 gm in 50 mls @ 100 mls/hr 12/28/23 17:00 12/31/23 01:35 Maxipime 2 Gm/Ns 50 Ml IVPB Infused Q8H ANNIE Infusion Levothyroxine Sodium 112 mcg 12/17/23 06:30 12/31/23 05:52 Levothyroxine Sodium 112 Mcg Tablet PO 112 mcg DAILY@0630 ANNIE Administration Lisinopril 20 mg 12/17/23 09:00 12/30/23 09:24 Lisinopril 20 Mg Tablet PO 20 mg DAILY ANNIE Administration Meclizine HCl 25 mg 12/16/23 22:37 12/19/23 07:52 Meclizine Hcl 25 Mg Tablet PO 25 mg BID PRN Administration dizziness Morphine Sulfate 4 mg 12/23/23 23:34 12/27/23 00:40 Morphine Sulfate (*Crx) 4 Mg/Ml Inj IV PUSH 4 mg Q2H PRN Administration Pain Rated 7-10 Ondansetron HCl 4 mg 12/19/23 10:07 Ondansetron Inj 4 Mg/2 Ml Vial IV PUSH ONCE PRN Nausea Pantoprazole Sodium 40
[2023-12-31 07:49] LABS: Magnesium 2.3 mg/dL (1.6-2.3)
[2023-12-31] MEDS: PANTOPRAZOLE 40 MG TABLET PO (09:57)
[2023-12-31] MEDS: ROSUVASTATIN 10 MG TABLET 20 MG PO (09:58)
[2023-12-31] MEDS: FERROUS SULFATE 325 MG TABLET DR PO ×2 (09:58→17:53)
[2023-12-31] MEDS: PHENAZOPYRIDINE HCL 100 MG TABLET 200 MG PO ×2 (09:58→17:52)
[2023-12-31] MEDS: lisinopriL 20 MG TABLET PO (09:58)
[2023-12-31 18:15] LABS: Hematocrit 24.3 % (42.0-52.0); Hemoglobin 7.8 g/dL (14.0-18.0); Mean Corpuscular HGB Conc 32.1 g/dl (32-36); Mean Corpuscular Hemoglobin 27.9 pg (26-34); Mean Corpuscular Volume 86.8 fl (80-100); Mean Platelet Volume 8.6 fl (7.4-10.4); Platelet Count Result 325 k/mm3 (150-375); Red Cell Distribution Width 17.6 % (11.5-14.5); White Blood Count 6.6 K/mm3 (4.5-10.0)
[2023-12-31 18:31] LABS: Alanine Aminotransferase 59 U/L (6-50); Albumin Level 3.4 g/dL (3.5-5.1); Alkaline Phosphatase 88 U/L (38-126); Anion Gap 4 mmol/L (8-16); Aspartate Amino Transferase 88 U/L (17-59); Bilirubin,Total 0.5 mg/dL (0.2-1.3); Blood Urea Nitrogen 12 mg/dL (9-20); Calcium 8.5 mg/dL (8.4-10.2); Carbon Dioxide 25 mmol/L (22-30); Chloride 106 mmol/L (98-107); Estimated CRCL calculation 69 ml/min; Estimated Glomerular Filt Rate > 60; Glucose 101 mg/dL (65-110); Potassium 3.5 mmol/L (3.4-5.0); Sodium 135 mmol/L (137-145)
[2023-12-31] MEDS: TAMSULOSIN HCL 0.4 MG CAPSULE PO (20:40)
[2024-01-01 04:35] VITALS: BP 141/68; PULSE 78; RESP 20; TEMP 36.6; O2SAT 100
[2024-01-01] MEDS: LEVOTHYROXINE SODIUM 112 MCG TABLET PO (05:25)
[2024-01-01 06:41] LABS: Basophils Percent Auto 0.5 % (0.2-1.2); Eosinophils Absolute Auto 0.3 K/mm3 (0-0.3); Eosinophils Percent Auto 4.4 % (0-4.4); Hematocrit 23.1 % (42.0-52.0); Hemoglobin 7.5 g/dL (14.0-18.0); Immature Granulocyte Absolute 0.06 K/mm3 (0.00-0.031); Immature Granulocyte Percent A 0.9 % (0-0.5); Lymphocytes Absolute Auto 0.82 K/mm3 (0.9-3.2); Lymphocytes Percent Auto 12.3 % (18.3-44.2); Mean Corpuscular HGB Conc 32.5 g/dl (32-36); Mean Corpuscular Hemoglobin 27.9 pg (26-34); Mean Corpuscular Volume 85.9 fl (80-100); Mean Platelet Volume 8.9 fl (7.4-10.4); Monocytes Absolute Auto 0.5 K/mm3 (0.1-0.6); Monocytes Percent Auto 8.1 % (2.6-8.5); Neutrophils Absolute Auto 4.9 K/mm3 (1.3-6.7); Neutrophils Percent Auto 73.8 % (45.5-73.1); Platelet Count Result 332 k/mm3 (150-375); Red Blood Count 2.69 M/mm3 (4.6-6.20); Red Cell Distribution Width 17.9 % (11.5-14.5); White Blood Count 6.6 K/mm3 (4.5-10.0)
[2024-01-01 07:10] LABS: Alanine Aminotransferase 48 U/L (6-50); Albumin Level 3.3 g/dL (3.5-5.1); Alkaline Phosphatase 80 U/L (38-126); Anion Gap 4 mmol/L (8-16); Aspartate Amino Transferase 62 U/L (17-59); Bilirubin,Total 0.4 mg/dL (0.2-1.3); Blood Urea Nitrogen 11 mg/dL (9-20); Calcium 8.5 mg/dL (8.4-10.2); Carbon Dioxide 25 mmol/L (22-30); Chloride 107 mmol/L (98-107); Estimated CRCL calculation 69 ml/min; Estimated Glomerular Filt Rate > 60; Glucose 97 mg/dL (65-110); Potassium 3.4 mmol/L (3.4-5.0); Sodium 136 mmol/L (137-145)
--- NOTE | 2024-01-01 07:22 | WPDUROPN2 ---
Progress Note: A&P Assessment and Plan (1) History of bladder cancer: Code(s): Z85.51 - Personal history of malignant neoplasm of bladder Status: Acute (2) H/O prostate cancer: Code(s): Z85.46 - Personal history of malignant neoplasm of prostate Status: Acute Assessment and Plan: Home today on Amicar x1-week and oral abx. for UTI x1 week. He has catheters for self-catheterization, if needed. Please also send home with catheter tip syringe and liter of saline to irrigate, if needed. (3) Hematuria: Qualifiers: Hematuria type: gross Qualified Code(s): R31.0 - Gross hematuria Code(s): R31.9 - Hematuria, unspecified Status: Acute Subjective Subjective Date/Time Seen: 01/01/24 07:22 Interval history: Continues to void, albeit with frequency but no retention Review of Systems Review of Systems: All systems reviewed & are unremarkable except as noted in HPI and below Exam Const: General: no acute distress Resp: Effort & Inspection: normal respiratory effort GI: Inspection: non-distended GI Palp: No abdominal tenderness and No Guarding due to palpation present (GI) Auscultation: normal bowel sounds Objective Data Vital Signs Vital Signs: Vital Signs - 24 hr 12/31/23 08:00 12/31/23 08:00 12/31/23 12:00 Temperature Pulse Rate 86 86 Respiratory Rate Blood Pressure Pulse Oximetry Oxygen Delivery Room Air 12/31/23 16:00 12/31/23 16:00 12/31/23 20:00 Temperature 98.3 F Pulse Rate 80 76 Respiratory Rate 16 Blood Pressure 126/67 Pulse Oximetry 99 Oxygen Delivery Room Air 12/31/23 20:10 01/01/24 04:35 Temperature 98 F 98 F Pulse Rate 77 78 Respiratory Rate 20 20 Blood Pressure 136/79 141/68 H Pulse Oximetry 99 100 Oxygen Delivery Intake/Output Intake/Output: Intake & Output 12/29/23 12/30/23 12/31/23 01/01/24 22:59 23:59 23:59 23:59 Intake Total 500 Output Total Balance 500 Meds/Results Medications: Active Medications Generic Name Dose Route Start Last Admin Trade Name Freq PRN Reason Stop Dose Admin Acetaminophen 650 mg 12/18/23 17:28 12/29/23 05:53 Acetaminophen 325 Mg Tablet PO 650 mg Q4H PRN Administration Pain Rated 1-3 Hydrocodone Bitart/Acetaminophen 1 tab 12/25/23 08:04 12/30/23 09:29 Hydrocodone/Acetaminophen (*Crx) 7.5-325 Mg Tablet PO 1 tab Q6H PRN Administration Pain Rated 4-6 Alprazolam 0.5 mg 12/25/23 08:23 12/26/23 16:33 Alprazolam (*Crx) 0.5 Mg Tablet PO 0.5 mg Q8H PRN Administration Anxiety Docusate Sodium 100 mg 12/21/23 10:36 12/21/23 14:25 Docusate Sodium 100 Mg Capsule PO 100 mg Q12H PRN Administration Constipation Ferrous Sulfate 325 mg 12/21/23 17:00 12/31/23 17:53 Ferrous Sulfate [address] PO 325 mg BID ANNIE Administration Levofloxacin 750 mg 01/01/24 15:00 Levofloxacin 750 Mg Tablet PO DAILY@1400 [facility] Levothyroxine Sodium 112 mcg 12/17/23 06:30 01/01/24 05:25 Levothyroxine Sodium 112 Mcg Tablet PO 112 mcg DAILY@0630 [facility] Administration Lisinopril 20 mg 12/17/23 09:00 12/31/23 09:58 Lisinopril 20 Mg Tablet PO 20 mg DAILY ANNIE Administration Meclizine HCl 25 mg 12/16/23 22:37 12/19/23 07:52 Meclizine Hcl 25 Mg Tablet PO 25 mg BID PRN Administration dizziness Morphine Sulfate 4 mg 12/23/23 23:34 12/27/23 00:40 Morphine Sulfate (*Crx) 4 Mg/Ml Inj IV PUSH 4 mg Q2H PRN Administration Pain Rated 7-10 Ondansetron HCl 4 mg 12/19/23 10:07 Ondansetron Inj 4 Mg/2 Ml Vial IV PUSH ONCE PRN Nausea Pantoprazole Sodium 40 mg 12/17/23 09:00 12/31/23 09:57 Pantoprazole 40 Mg Tablet PO 40 mg DAILY ANNIE Administration Phenazopyridine HCl 200 mg 12/26/23 09:00 12/31/23 17:52 Phenazopyridine Hcl 100 Mg Tablet PO 200 mg BID ANNIE Administration Polyethylene Glycol 17 gm 12/21/23 10:36 0
[2024-01-01] MEDS: PANTOPRAZOLE 40 MG TABLET PO (08:06)
[2024-01-01] MEDS: FERROUS SULFATE 325 MG TABLET DR PO (08:06)
[2024-01-01] MEDS: lisinopriL 20 MG TABLET PO (08:06)
[2024-01-01] MEDS: ROSUVASTATIN 10 MG TABLET 20 MG PO (08:06)
[2024-01-01] MEDS: PHENAZOPYRIDINE HCL 100 MG TABLET 200 MG PO (08:06)
--- NOTE | 2024-01-01 10:30 | PCNWS ---
Weekly nutritional screen. Patient is tolerating current regular diet with adequate intake 100% of meals. No weight loss reported. No nutritional needs at this time.
[2024-01-01] MEDS: levoFLOXacin 750 MG TABLET PO (14:57)
--- NOTE | 2024-01-01 15:39 | PM.DS ---
DS: Admitting Diagnosis Discharge Date January 01, 2024 Admitting Diagnosis Hematuria DS: Discharge Diagnosis Discharge Diagnosis (1) Pneumonia: Code(s): J18.9 - Pneumonia, unspecified organism Status: Acute (2) History of bladder cancer: Code(s): Z85.51 - Personal history of malignant neoplasm of bladder Status: Acute (3) Hematuria: Qualifiers: Hematuria type: gross Qualified Code(s): R31.0 - Gross hematuria Code(s): R31.9 - Hematuria, unspecified Status: Acute (4) Anemia: Code(s): D64.9 - Anemia, unspecified Status: Acute DS: Summary Hospital Course Hospital Course: 73-year-old male with a history of prostate cancer status post radiation remote, non muscle invasive bladder carcinoma status post TURBT and 08/2023, hypertension, hyperlipidemia and hypothyroidism presenting with problems with this Lindsey catheter. Patient was hospitalized multiple times with hematuria since April 2023 most recent being just prior to this admission. He was discharged home after acute urinary retention and gross hematuria. In the past week he underwent cystoscopy with clot evacuation and cauterization of the bladder and prostatic urethra. Was on CBI for a couple of days and was discharged home but reported intermittent pink tinged urine. In the ER he developed severe bladder spasms and his Lindsey catheter was exchanged however shortly after he began passing gross blood in the urine. His course was subsequently lengthy and Urology managed with Amicar and Pyridium along with CBI. On 01/01/2024 the patient's Lindsey catheter has been removed and he no longer has hematuria or bladder spasm/pain. He will be following up with his urologist very closely and has been prescribed 1 more week of Amicar as well as levofloxacin 750 mg p.o. q.day for another 7 days for UTI. He has been provided straight cath and flush equipment. Oncology was also consulted and he is not felt to have a bleeding disorder however will be following up with Oncology as well on his anemia and bleeding. Iron tablets b.i.d. have been started for his anemia. Of note, the patient developed pneumonia while inpatient and was treated with cefepime and he will continue on levofloxacin. Signs of sepsis have since resolved. The patient is stable for discharge to home on January 01, 2024 with his . He and the are in understanding of the plan and in agreement. Adverse effects, risks, and benefits have been educated on hold and new medications. The patient was full code during his admission. Time Spent with Patient Time attestation: Total time spent providing and/or coordinating discharge services: Exam Const: General: cooperative and no acute distress Resp: Effort & Inspection: normal respiratory effort Auscultation: clear to auscultation bilaterally Cardio: Rate: regular rate Rhythm: regular rhythm Heart sounds: S1 normal heart sound present and S2 normal heart sound present GI: GI Palp: No abdominal tenderness Auscultation: normal bowel sounds DS: Data Data Completed and Pending Completed studies during hospitalization: Pending at discharge 12/21/23 05:00 Surgical [PTH] Routine Labs on day of discharge: Labs from last 24 hours 01/01/24 12/31/23 06:06 17:53 WBC 6.6 6.6 RBC 2.69 L 2.80 L Hgb 7.5 L 7.8 L Hct 23.1 L 24.3 L MCV 85.9 86.8 MCH 27.9 27.9 MCHC 32.5 32.1 RDW 17.9 H 17.6 H Plt Count 332 325 MPV 8.9 8.6 Immature Gran % (Auto) 0.9 H Neut % (Auto) 73.8 H Lymph % (Auto) 12.[address] [place] % (Auto) 8.1 Eos % (Auto) 4.4 Baso % (Auto) 0.5 Lymph # (Auto) 0.[address] [place] # (Auto) 0.5 Eos # (Auto) 0.3 Baso # (Auto) 0.0 Abs Immat Gran (auto) 0.06 H Absolute Neuts (auto) 4.9 Absolute Nucleated RBC 0.0 Nucleated RBC % 0.0 Sodium 136 L 135 L Potassium 3.4 3.5 Chloride 107 106 Carbon Dioxide 25 25 Anion Gap 4 L 4 L BUN 11 1
--- NOTE | 2024-01-01 15:47 | PC.NURSE ---
iv out, gave 60cc syringe, and sterile water for d/c. Patient already has straight caths given by Dr Matias. family in room to take home at d/c. all d/c papers discussed with patient. Denies questions.
== END 2024-01-01 16:15 | disposition home or self-care (01) | DRG 662 ==
LOC: ANHED 17:44 → ANH3MEDSUR 18:00
PROVIDERS: Internal Medicine; Nurse Practitioner Family; Physician Assistant; Student in an Organized Health Care Education/Training Program; Urology; Admitting Provider Family Medicine; Emergency Provider Emergency Medicine; PCP Family Medicine; Visit Provider General Practice
PROC: 0TCB8ZZ Extirpation of Matter from Bladder, Via Natural or Artificial Opening Endoscopic (ICD-10-PCS; CPT 52001; principal; 2023-12-19 10:45)
DX: R31.9 Hematuria, unspecified (principal); J18.9 Pneumonia, unspecified organism; T83.518A Infection and inflammatory reaction due to other urinary catheter, initial encounter; N39.0 Urinary tract infection, site not specified; R33.9 Retention of urine, unspecified; I12.9 Hypertensive chronic kidney disease with stage 1 through stage 4 chronic kidney disease, or unspecified chronic kidney disease; N18.9 Chronic kidney disease, unspecified; D63.1 Anemia in chronic kidney disease; N31.9 Neuromuscular dysfunction of bladder, unspecified; E78.5 Hyperlipidemia, unspecified; E03.9 Hypothyroidism, unspecified; E78.00 Pure hypercholesterolemia, unspecified; K21.9 Gastro-esophageal reflux disease without esophagitis; Z20.822 Contact with and (suspected) exposure to COVID-19; Z85.51 Personal history of malignant neoplasm of bladder; Z85.46 Personal history of malignant neoplasm of prostate; Z85.810 Personal history of malignant neoplasm of tongue; Z86.010 Personal history of colon polyps
CPT/HCPCS: 36415; 36430; 51700; 71045; 76770; 80048; 80053; 81001; 82607; 82728; 82746; 82948; 83540; 83550; 83605; 83735; 83921; 84145; 84153; 84238; 85014; 85018; 85025; 85027; 85240; 85245; 85246; 85247; 85380; 85384; 85610; 85730; 86850; 86900; 86901; 86923; 87040; 87070; 87077; 87086; 87088; 87186; 87205; 87637; 87641; 87799; 97110; 97161; 97165; 97530; 99283; 99285; A9270; G0378; J0690; J0692; J0696; J1165; J1756; J2250; J2270; J2405; J2704; J3010; J3360; J7030; J7050; J7060; J7120; P9016

== ENCOUNTER 2024-01-03 19:17 | Emergency (ER) | payer MEDICARE, SELFPAY ==
[2024-01-03 19:24] VITALS: BP 131/71; PULSE 97; RESP 18; TEMP 36.3; O2SAT 100
[2024-01-03] MEDS: LORazepam INJ (*CRX) 2 MG/ML VIAL 0.5 MG IV PUSH (21:13)
[2024-01-03 21:22] LABS: Basophils Absolute Auto 0.1 K/mm3 (0.0-0.1); Basophils Percent Auto 0.6 % (0.2-1.2); Eosinophils Absolute Auto 0.1 K/mm3 (0-0.3); Eosinophils Percent Auto 1.8 % (0-4.4); Hematocrit 22.3 % (42.0-52.0); Hemoglobin 7.3 g/dL (14.0-18.0); Immature Granulocyte Absolute 0.06 K/mm3 (0.00-0.031); Immature Granulocyte Percent A 0.8 % (0-0.5); Lymphocytes Absolute Auto 0.66 K/mm3 (0.9-3.2); Lymphocytes Percent Auto 8.3 % (18.3-44.2); Mean Corpuscular HGB Conc 32.7 g/dl (32-36); Mean Corpuscular Hemoglobin 27.4 pg (26-34); Mean Corpuscular Volume 83.8 fl (80-100); Mean Platelet Volume 8.9 fl (7.4-10.4); Monocytes Absolute Auto 0.6 K/mm3 (0.1-0.6); Monocytes Percent Auto 7.4 % (2.6-8.5); Neutrophils Absolute Auto 6.5 K/mm3 (1.3-6.7); Neutrophils Percent Auto 81.1 % (45.5-73.1); Platelet Count Result 415 k/mm3 (150-375); Red Blood Count 2.66 M/mm3 (4.6-6.20); Red Cell Distribution Width 17.7 % (11.5-14.5)
[2024-01-03 21:32] LABS: Alanine Aminotransferase 35 U/L (6-50); Albumin Level 3.6 g/dL (3.5-5.1); Alkaline Phosphatase 73 U/L (38-126); Anion Gap 8 mmol/L (8-16); Aspartate Amino Transferase 45 U/L (17-59); Bilirubin,Total 0.6 mg/dL (0.2-1.3); Blood Urea Nitrogen 15 mg/dL (9-20); Calcium 8.9 mg/dL (8.4-10.2); Carbon Dioxide 20 mmol/L (22-30); Chloride 104 mmol/L (98-107); Estimated CRCL calculation 69 ml/min; Estimated Glomerular Filt Rate > 60; Glucose 109 mg/dL (65-110); Potassium 3.8 mmol/L (3.4-5.0); Sodium 132 mmol/L (137-145)
--- NOTE | 2024-01-03 21:59 | ED.GENADULT ---
HPI - General Adult General Chief complaint: Urogenital-Male Stated complaint: urinating problem Time Seen by Provider: 01/03/24 20:32 History of Present Illness HPI narrative: This is a 73-year-old male with a complicated bladder history presenting with difficulty self cathing. Patient was able to self cath this morning without a problem. However he tried to self cath this evening and said he was unable to get any urine out due to a clot. He tried flushing troubleshooting without success. He then became more more frustrated until he came to the emergency department. Patient says he feels full but does not have any pain yet Related Data Home Medications Medication Instructions Recorded Confirmed tamsulosin 0.4 mg capsule 0.4 mg PO HS 10/24/23 12/16/23 omeprazole 20 mg capsule,delayed 20 mg PO DAILY 12/16/23 12/16/23 release Allergies Allergy/AdvReac Type Severity Reaction Status Date / Time No Known Allergies Allergy Unknown Verified 01/03/24 19:18 PMFSH Past Medical History Medical History Adenomatous colon polyp Anemia in chronic kidney disease Anxiety disorder due to medical condition Bladder cancer (08/2023) Noninvasive low-grade papillary urothelial carcinoma. Bulbous urethral stricture Gastroesophageal reflux disease Hyperlipidemia Hypertension Hypothyroidism Osteomyelitis of mandible Prostate cancer Status post radiation. Pure hypercholesterolemia Tongue cancer Status post radiation. Surgical History Surgical History History of colonoscopy with polypectomy History of cystoscopy History of hernia repair History of mandibular surgery History of transurethral resection of bladder tumor (TURBT) Family History Family History Father Diabetes mellitus Hypertension Acute angina Coronary artery disease Heart disease Mother Congestive heart failure Diabetes mellitus Sibling Myocardial infarction Heart disease Sibling No problems noted. Social History Social History Social History: Surrogate medical decision maker: Babita Harrishaileytin, spouse. Code status: Full code. Smoking status: Never smoker Second hand tobacco smoke exposure: No Alcohol intake: current Drinks per week: 20 Alcohol use details: 3 BEERS/DAY Substance use: never Substance use type: does not use Do You Feel Safe in your Home?: Yes Lack of Transportation: No Lack of Food: Never True Current Housing: I Have Housing Concerned About Future Housing: Decline to Answer Difficulty Paying Gas/Electric Bills: Decline to Answer Difficulty Paying for Meds: Decline to Answer Currently Unemployed: Decline to Answer Education: Master's Degree or Higher Difficulty w/ Childcare or Family Care: No Living arrangements: with family Additional living arrangements comments: Lives with spouse in [place]. They have 1 child. Occupation/Education: retired Additional occupation/education comments: [employer]. Spiritual care concerns: No Exam Narrative: APPEARANCE: No apparent distress. Head: atraumatic. EYES: EOMI, NOSE: Atraumatic NECK: Trachea midline RESPIRATORY: No increased rate of breathing CARDIOVASCULAR: RRR, ABDOMINAL: Non-distended , no suprapubic tenderness or fullness MUSCULOSKELETAl: No obvious deformities NEURO: Alert. Moving 4/4 extremities SKIN:: Warm, dry. Normal color PSYCHIATRIC: Normal affect Course Vital Signs Vital signs: Vital Signs Temperature 97.3 F L 01/03/24 19:24 Pulse Rate 97 01/03/24 19:24 Respiratory Rate 18 01/03/24 19:24 Blood Pressure 131/71 01/03/24 19:24 Pulse Oximetry 100 01/03/24 19:24 Oxygen Delivery Room Air 01/03/24 19:24 Temperature 97.3 F L 12/20
[2024-01-03 22:49] VITALS: BP 146/81; PULSE 92; RESP 20; TEMP 36.7; O2SAT 97
== END 2024-01-03 22:50 | disposition home or self-care (01) ==
PROVIDERS: Emergency Provider Emergency Medicine; PCP Family Medicine
DX: Z03.89 Encounter for observation for other suspected diseases and conditions ruled out (principal); F41.9 Anxiety disorder, unspecified; I12.9 Hypertensive chronic kidney disease with stage 1 through stage 4 chronic kidney disease, or unspecified chronic kidney disease; D63.1 Anemia in chronic kidney disease; E03.9 Hypothyroidism, unspecified; E78.00 Pure hypercholesterolemia, unspecified; K21.9 Gastro-esophageal reflux disease without esophagitis; Z85.46 Personal history of malignant neoplasm of prostate; Z92.3 Personal history of irradiation; Z85.51 Personal history of malignant neoplasm of bladder; Z86.010 Personal history of colon polyps; Z90.79 Acquired absence of other genital organ(s)
CPT/HCPCS: 36415; 80053; 85025; 96374; 99284; J2060

== ENCOUNTER 2024-01-14 13:51 | Outpatient (CLI) | payer MEDICARE, SELFPAY ==
--- NOTE | ~2024-01-14 | US_ITS ---
EXAMINATION: US venous doppler [facility] DATE: 01/14/2024 14:49 INDICATION: Lower limb swelling TECHNIQUE: Grayscale ultrasound images without and with compression and Doppler ultrasound images of the bilateral lower extremity veins were obtained. COMPARISON: None. FINDINGS: Noncompressible hypoechoic thrombus filling the right popliteal vein, posterior tibial veins, peronea l veins and gastrocnemius vein. The visualized portions of right common femoral vein, profunda (deep) femoral vein, femoral vein and greater saphenous vein outflow are patent. The visualized portions of left common femoral vein, profunda femoral vein, femoral vein, popliteal v ein, posterior tibial veins, peroneal veins, gastrocnemius vein and greater saphenous vein outflow ar e patent. IMPRESSION: 1. Deep venous thrombosis at and below the right knee in the right popliteal, gassiness, posterior t ibial and peroneal veins. 2. No deep venous necrosis in the left lower limb. Reviewed, dictated and finalized at location A. IMPRESSION: 1. Deep venous thrombosis at and below the right knee in the right popliteal, gassiness, posterior tibial and peroneal veins. 2. No deep venous necrosis in the left lower limb.
== END 2024-01-14 13:52 | disposition home or self-care (01) ==
LOC: ANHIMG 13:52
PROVIDERS: PCP Family Medicine; Visit Provider Physician Assistant Medical
DX: M79.89 Other specified soft tissue disorders (principal); I82.431 Acute embolism and thrombosis of right popliteal vein; I82.441 Acute embolism and thrombosis of right tibial vein; I82.451 Acute embolism and thrombosis of right peroneal vein
CPT/HCPCS: 93970

== ENCOUNTER 2024-01-18 08:55 | Outpatient (CLI) | payer MEDICARE, SELFPAY ==
--- NOTE | ~2024-01-18 | XR_ITS ---
EXAMINATION: XR chest 2V 01/18/2024 09:25 INDICATION: Pneumonia PROCEDURE: 2 view chest COMPARISON: No prior studies for comparison. FINDINGS: The lungs are clear. There are bilateral calcified granulomas of the lungs. The cardiomedia stinal silhouette is within normal limits. There are no pleural effusions. There is no pneumothorax suspected. IMPRESSION: 1: NO ACUTE CARDIOPULMONARY DISEASE. Reviewed, dictated and finalized at location B.
== END 2024-01-18 08:56 | disposition home or self-care (01) ==
PROVIDERS: PCP Family Medicine; Visit Provider Nurse Practitioner Adult Health
DX: J18.9 Pneumonia, unspecified organism (principal)
CPT/HCPCS: 71046

== ENCOUNTER 2024-01-23 11:29 | Outpatient (CLI) | payer MEDICARE, SELFPAY ==
[2024-01-23 11:42] LABS: Basophils Absolute Auto 0.1 K/mm3 (0.0-0.1); Basophils Percent Auto 0.7 % (0.2-1.2); Eosinophils Absolute Auto 0.2 K/mm3 (0-0.3); Eosinophils Percent Auto 2.8 % (0-4.4); Hematocrit 27.4 % (42.0-52.0); Immature Granulocyte Absolute 0.03 K/mm3 (0.00-0.031); Immature Granulocyte Percent A 0.4 % (0-0.5); Lymphocytes Percent Auto 9.9 % (18.3-44.2); Mean Corpuscular HGB Conc 32.8 g/dl (32-36); Mean Corpuscular Hemoglobin 28.5 pg (26-34); Mean Corpuscular Volume 86.7 fl (80-100); Mean Platelet Volume 8.1 fl (7.4-10.4); Monocytes Absolute Auto 0.7 K/mm3 (0.1-0.6); Monocytes Percent Auto 9.5 % (2.6-8.5); Neutrophils Absolute Auto 5.4 K/mm3 (1.3-6.7); Neutrophils Percent Auto 76.7 % (45.5-73.1); Platelet Count Result 267 k/mm3 (150-375); Red Blood Count 3.16 M/mm3 (4.6-6.20); White Blood Count 7.1 K/mm3 (4.5-10.0)
[2024-01-23 20:19] LABS: Iron 50 ug/dL (49-181)
[2024-01-23 20:30] LABS: Percent Iron Saturation 12 % (20-50)
[2024-01-24 00:15] LABS: Alanine Aminotransferase 13 U/L (6-50); Albumin Level 4.3 g/dL (3.5-5.1); Alkaline Phosphatase 62 U/L (38-126); Anion Gap 3 mmol/L (4-12); Aspartate Amino Transferase 20 U/L (17-59); Bilirubin,Total 0.4 mg/dL (0.2-1.3); Blood Urea Nitrogen 25 mg/dL (9-20); Calcium 9.8 mg/dL (8.4-10.2); Carbon Dioxide 26 mmol/L (22-30); Chloride 100 mmol/L (98-107); Estimated Glomerular Filt Rate > 60; Glucose 98 mg/dL (65-110); Potassium 4.5 mmol/L (3.4-5.0); Sodium 129 mmol/L (137-145)
[2024-01-24 01:23] LABS: Folic Acid 12.8 ng/mL (2.76->20)
[2024-01-31 17:07] LABS: Soluble Transferrin Receptor 2.07 mg/L (0.76-1.76)
== END 2024-01-23 11:30 | disposition home or self-care (01) ==
LOC: ANHLAB 11:32
PROVIDERS: PCP Family Medicine; Referring Provider Urology; Visit Provider Internal Medicine Hematology & Oncology
DX: D64.9 Anemia, unspecified (principal)
CPT/HCPCS: 36415; 80053; 82607; 82728; 82746; 83540; 83550; 84238; 85025

== ENCOUNTER 2024-04-02 10:45 | Outpatient (CLI) | payer MEDICARE, SELFPAY ==
--- NOTE | ~2024-04-02 | US_ITS ---
EXAMINATION:US venous doppler LE RT INDICATION:History of deep venous thrombosis. TECHNIQUE: Multiple grayscale, color flow and Doppler images of the right lower extremity deep venous systems were obtained and reviewed. COMPARISON:01/14/2024 FINDINGS: There is chronic deep venous thrombosis of the right popliteal and posterior tibial veins. The remainder of the right lower extremity veins demonstrate normal flow, compressibility and augment ation. IMPRESSION: 1: Chronic deep venous thrombosis of the right popliteal and posterior tibial veins. Reviewed, dictated and finalized at location B. IMPRESSION: 1: Chronic deep venous thrombosis of the right popliteal and posterior tibial v eins.
== END 2024-04-02 10:46 | disposition home or self-care (01) ==
PROVIDERS: PCP Family Medicine; Visit Provider Internal Medicine Hematology & Oncology
DX: I82.531 Chronic embolism and thrombosis of right popliteal vein (principal); I82.541 Chronic embolism and thrombosis of right tibial vein
CPT/HCPCS: 93971

== ENCOUNTER 2024-04-03 08:26 | Outpatient (CLI) | payer MEDICARE, SELFPAY ==
[2024-04-03 08:46] LABS: Basophils Absolute Auto 0.1 K/mm3 (0.0-0.1); Eosinophils Absolute Auto 0.3 K/mm3 (0-0.3); Eosinophils Percent Auto 5.7 % (0-4.4); Hematocrit 32.3 % (42.0-52.0); Hemoglobin 10.3 g/dL (14.0-18.0); Immature Granulocyte Absolute 0.02 K/mm3 (0.00-0.031); Immature Granulocyte Percent A 0.4 % (0-0.5); Lymphocytes Absolute Auto 0.84 K/mm3 (0.9-3.2); Mean Corpuscular HGB Conc 31.9 g/dl (32-36); Mean Corpuscular Hemoglobin 29.2 pg (26-34); Mean Corpuscular Volume 91.5 fl (80-100); Mean Platelet Volume 8.9 fl (7.4-10.4); Monocytes Absolute Auto 0.6 K/mm3 (0.1-0.6); Monocytes Percent Auto 12.3 % (2.6-8.5); Neutrophils Absolute Auto 3.1 K/mm3 (1.3-6.7); Neutrophils Percent Auto 63.6 % (45.5-73.1); Platelet Count Result 235 k/mm3 (150-375); Red Blood Count 3.53 M/mm3 (4.6-6.20); Red Cell Distribution Width 16.9 % (11.5-14.5); White Blood Count 4.9 K/mm3 (4.5-10.0)
[2024-04-03 09:21] LABS: Iron 345 ug/dL (49-181)
[2024-04-03 09:30] LABS: Percent Iron Saturation 87 % (20-50)
[2024-04-03 10:02] LABS: Folic Acid 11.4 ng/mL (2.76->20)
== END 2024-04-03 08:27 | disposition home or self-care (01) ==
LOC: ANHLAB 08:28
PROVIDERS: PCP Family Medicine; Visit Provider Internal Medicine Hematology & Oncology
DX: D64.9 Anemia, unspecified (principal)
CPT/HCPCS: 36415; 82607; 82728; 82746; 83540; 83550; 85025

== ENCOUNTER 2024-08-14 09:05 | Outpatient (CLI) | payer MEDICARE, SELFPAY ==
[2024-08-14 09:47] LABS: Hematocrit 29.9 % (42.0-52.0); Hemoglobin 9.8 g/dL (14.0-18.0)
[2024-08-14 09:57] LABS: INR 1.8; Partial Thromboplastin Time 34.6 Seconds (22.3-36.8); Prothrombin Time 21.7 Seconds (11.1-14.7)
[2024-08-14 10:00] LABS: Anion Gap 7 mmol/L (4-12); Blood Urea Nitrogen 17 mg/dL (9-20); Calcium 8.8 mg/dL (8.4-10.2); Carbon Dioxide 25 mmol/L (22-30); Chloride 102 mmol/L (98-107); Estimated Glomerular Filt Rate > 60; Glucose 93 mg/dL (65-110); Potassium 3.9 mmol/L (3.4-5.0); Sodium 134 mmol/L (137-145)
== END 2024-08-14 09:06 | disposition home or self-care (01) ==
PROVIDERS: Anesthesiology; PCP Family Medicine; Visit Provider Urology
DX: N18.9 Chronic kidney disease, unspecified (principal); D63.1 Anemia in chronic kidney disease
CPT/HCPCS: 36415; 80048; 85014; 85018; 85610; 85730

== ENCOUNTER 2024-08-21 01:03 | Day surgery (SDC) | payer MEDICARE, SELFPAY ==
--- NOTE | 2024-08-08 11:53 | P.HP_ITS ---
History of Present Illness History of Present Illness Consent: Risks, benefits, and alternatives have been discussed and questions answered. Patient agrees to proceed with procedure. Chief complaint: Bladder Ca Narrative: Angel Vargas is a 74 year old male with a long history of recurrent urothelial carcinoma the bladder. Recent surveillance cystoscopy revealed 2 small papillary recurrences in the anterior bladder wall. After cleared to go off blood thinners he presents now for TURBT followed by gemcitabine installation. Review of Systems Review of Systems: All systems reviewed & are unremarkable except as noted in HPI and below PMFSH Past Medical History Medical History Adenomatous colon polyp Anemia in chronic kidney disease Anxiety disorder due to medical condition Bladder cancer (08/2023) Noninvasive low-grade papillary urothelial carcinoma. Bulbous urethral stricture Gastroesophageal reflux disease Hyperlipidemia Hypertension Hypothyroidism Iron deficiency anemia Osteomyelitis of mandible Prostate cancer Status post radiation. Pure hypercholesterolemia Tongue cancer Status post radiation. Surgical History Surgical History History of colonoscopy with polypectomy History of cystoscopy History of hernia repair History of mandibular surgery History of transurethral resection of bladder tumor (TURBT) Family History Family History Father Diabetes mellitus Hypertension Acute angina Coronary artery disease Heart disease Mother Congestive heart failure Diabetes mellitus Sibling Myocardial infarction Heart disease Sibling No problems noted. Social History Social History Social History: Surrogate medical decision maker: Babita Schreiber, spouse. Code status: Full code. Smoking status: Never smoker Second hand tobacco smoke exposure: No Alcohol intake: current Drinks per week: 20 Alcohol use details: 3 BEERS/DAY Substance use: never Substance use type: does not use Do You Feel Safe in your Home?: Yes Lack of Transportation: No Lack of Food: Never True Current Housing: I Have Housing Concerned About Future Housing: Decline to Answer Difficulty Paying Gas/Electric Bills: Decline to Answer Difficulty Paying for Meds: Decline to Answer Currently Unemployed: Decline to Answer Education: Master's Degree or Higher Difficulty w/ Childcare or Family Care: No Living arrangements: with family Additional living arrangements comments: Lives with spouse in [place]. They have 1 child. Occupation/Education: retired Additional occupation/education comments: [employer]. Spiritual care concerns: No Meds Home Medications and Allergies Home Medications Medication Instructions Recorded Confirmed Type tamsulosin 0.4 mg capsule 0.4 mg PO HS 10/24/23 05/29/24 History hyoscyamine sulfate 0.125 mg 0.125 mg PO Q4H PRN Bladder Spasm 12/12/23 05/29/24 Rx disintegrating tablet (Anaspaz) #20 tabs aminocaproic acid 500 mg tablet 1 g PO TID #42 tabs 12/27/23 05/29/24 Rx (Amicar) hydrochlorothiazide 12.5 mg tablet 12.5 mg PO DAILY #30 tabs 01/10/24 05/29/24 Rx ferrous sulfate 325 mg (65 mg 325 mg PO BID #60 tabs 02/04/24 05/29/24 Rx iron) tablet,delayed release omeprazole 20 mg capsule,delayed 20 mg PO DAILY #90 caps 02/15/24 05/29/24 Rx release lisinopril 20 mg tablet 20 mg PO DAILY #90 tabs 05/29/24 05/29/24 Rx rivaroxaban 15 mg tablet (Xarelto) 15 mg PO DAILY #30 tabs 05/29/24 05/29/24 Rx rosuvastatin 20 mg tablet See Rx Instructions .Route 05/29/24 05/29/24 Rx .COMPLEX #90 tabs meclizine 25 mg tablet 25 mg PO BID PRN dizziness #180 06/16/24 Rx tabs levothyroxine 112 mcg tablet 112 mcg PO DAILY #90 tabs 07/13/24 Rx Allergies Allergy/AdvReac Type Severity Reaction Status Date / Time No Known Allergies Allergy Unknown Verified 05/29/24 09:36 Exam Const: General: no acute distress Resp: Effort & Inspection: normal respiratory effort GI: Inspection: non-distended GI Palp: No abdominal tenderness and No Guarding due to palpation present (GI) Auscultation: normal bowel sounds Assessment and Plan Assessment and plan (1) Cancer of anterior wall of urinary bladder: Code(s): C67.3 - Malignant neoplasm of anterior wall of bladder Status: Acute Assessment and Plan: * TURBT followed by gemcitabine installation
[2024-08-12 09:13] VITALS: BMI 26.6
--- NOTE | 2024-08-12 09:23 | PC.NURSE ---
Report to the Outpatient Waiting Room, entrance under the green pavilion located off [facility], at time _0615am___on date __08/21/24 . Planned Procedure Time: __08:15 am .? Time changes happen often and if your time is changed the preop area will call you the afternoon before. - You and your visitor will be asked to self-screen and do not enter if you have any COVID symptoms. Please call surgeon if you need to reschedule. - A mask is optional within the hospital at this time. Patients may have clear liquids (water, carbonated beverages, clear teas, apple juice) until 3 hours prior to surgery with a maximum of 20 ounces. - No food from midnight until time of surgery and no smoking - Infants may have breast milk until 4 hours before surgery, formula 6 hours prior to surgery. - Children will be allowed to drink immediately following surgery.? If applicable, please bring a bottle or sippy cup to assist with drinking. Juice, water, soda, and popsicles are readily available.? For infants on formula, please bring formula the day of surgery.? Pacifiers are allowed. Take only the following medications with a SIP of water on the morning of surgery: ____Levothyroxine DO NOT STOP ANY OF YOUR OTHER PRESCRIPTION MEDICATIONS PRIOR TO SURGERY EXCEPT THE FOLLOWING Medications to discontinue per physician Hold the Xarelto [address] Matias and Also all vitamins/Supplements 3 days prior per Anesthesia Date to take last dose____08/17/24 Please no make-up, nail central african, hairspray, perfume, deodorant, or body powder the day of surgery.? No jewelry (including any body piercings) or valuables the day of surgery, leave them at home.? Please take a shower or bath the night before, or the morning of, surgery with an antibacterial soap.? Wear comfortable, loose fitting clothing.? - Jewelry must be removed prior to entering the operating room.? Rings and piercings that are not removed may be cut off. - The hospital will not accept responsibility for valuables.? - Please leave all valuables, including medications, at home the day of surgery. If you are going home after surgery, a licensed o[employer] company driver must drive you home.? - NO public transportation without another adult if you receive anesthesia. - We recommend that an adult stay with you for 24 hours following discharge. - We also recommend that you do not drive, make important decision, drink alcoholic beverages, or take any drugs that were not prescribed by your health care provider for at least 24 hours after your discharge time. Follow any additional instructions given to you from your surgeon. Telephone instructions given to ___patient and asked if any additional questions and then verbalized understanding. Patient advised to call surgeon office or pre surgery nurse liaison [phone] if any additional questions.
--- NOTE | 2024-08-20 18:38 | P.PNAN_ITS ---
Anes - Eval Pre Procedure Procedure: Operation Date: 08/21/24 08:15 Proposed Procedures p Trans Urethral Resection Bladder Tumor with Gemcitabine Instillation - Joey Matias MD Date/Time: 08/20/24 18:38 Surgeon: Polly Pre Op Diagnosis: Bladder Ca Patient Data Age: 74 Gender: M Height: 1.73 m Weight: 79.5 kg Allergies Allergy/AdvReac Type Severity Reaction Status Date / Time No Known Allergies Allergy Unknown Verified 08/12/24 09:08 Home Medications Medication Instructions Recorded Confirmed Type tamsulosin 0.4 mg capsule 0.4 mg PO HS 10/24/23 08/12/24 History ferrous sulfate 325 mg (65 mg 325 mg PO BID #60 tabs 02/04/24 08/12/24 Rx iron) tablet,delayed release lisinopril 20 mg tablet 20 mg PO DAILY #90 tabs 05/29/24 08/12/24 Rx rivaroxaban 15 mg tablet (Xarelto) 15 mg PO DAILY #30 tabs 05/29/24 08/12/24 Rx rosuvastatin 20 mg tablet See Rx Instructions .Route 05/29/24 08/12/24 Rx .COMPLEX #90 tabs meclizine 25 mg tablet 25 mg PO BID PRN dizziness #180 06/16/24 08/12/24 Rx tabs levothyroxine 112 mcg tablet 112 mcg PO DAILY #90 tabs 07/13/24 08/12/24 Rx hydrochlorothiazide 12.5 mg tablet 12.5 mg PO DAILY #30 tabs 08/12/24 08/12/24 Rx omeprazole 20 mg capsule,delayed 20 mg PO DAILY #90 caps 08/20/24 Rx release ECG: Rate: 65 P: 64 MA: 185 QRS: -24 QRSD: 108 T: 11 QT: 395 QTc: 411 Interpretive Statements SINUS RHYTHM POSSIBLE LEFT ATRIAL ENLARGEMENT INCOMPLETE RIGHT BUNDLE BRANCH BLOCK BORDERLINE ECG COMPARED TO ECG 01/23/2022 21:54:49 INCOMPLETE RIGHT BUNDLE-BRANCH BLOCK NOW PRESENT Electronically Signed On 08-30-2023 10:51:56 PERSONAL LINES INSURANCE AGENT by Justo Porter D.O. Dictated By: Justo Porter DO 08/30/23 1051 Patient hx anesthesia problems: none Family hx anesthesia problems: none Results Review: All pre-operative results and documents have been reviewed as part of the pre- operative evaluation. [facility] Past Medical History Medical History Adenomatous colon polyp Anemia in chronic kidney disease Anxiety disorder due to medical condition Bladder cancer (08/2023) Noninvasive low-grade papillary urothelial carcinoma. Bulbous urethral stricture Gastroesophageal reflux disease Hyperlipidemia Hypertension Hypothyroidism Iron deficiency anemia Osteomyelitis of mandible Prostate cancer Status post radiation. Pure hypercholesterolemia Tongue cancer Status post radiation. Surgical History Surgical History History of colonoscopy with polypectomy History of cystoscopy History of hernia repair History of mandibular surgery History of transurethral resection of bladder tumor (TURBT) Family History Family History Father Diabetes mellitus Hypertension Acute angina Coronary artery disease Heart disease Mother Congestive heart failure Diabetes mellitus Sibling Myocardial infarction Heart disease Sibling No problems noted. Social History Social History Social History: Surrogate medical decision maker: Babitaarminda Schreiber, spouse. Code status: Full code. Smoking status: Never smoker Second hand tobacco smoke exposure: No Alcohol intake: current Drinks per week: 14 Alcohol use details: 3 BEERS/DAY Substance use: never Substance use type: marijuana Other substance usage details: Gummies occasionally Do You Feel Safe in your Home?: Yes Lack of Transportation: No Lack of Food: Never True Current Housing: I Have Housing Concerned About Future Housing: Decline to Answer Difficulty Paying Gas/Electric Bills: Decline to Answer Difficulty Paying for Meds: Decline to Answer Currently Unemployed: Decline to Answer Education: Master's Degree or Higher Difficulty w/ Childcare or Family Care: No Living arrangements: with family Additional living arrangements comments: Occupation/Education: retired Additional occupation/education comments: [employer]. Spiritual care concerns: No Exam Day of Procedure 08/20/24 18:38
[2024-08-21] VITALS (9 sets, daily range): BP systolic 134–155; BP diastolic 64–91; PULSE 65–89; RESP 14–18; TEMP 36.3; O2SAT 96–100; BMI 26.4
--- NOTE | 2024-08-21 06:13 | WPDHPUPDATE1 ---
History and Physical Update Update Date/Time: 08/21/24 06:13 History and Physical has been reviewed, including an updated exam of the patient. There are NO changes in the patient's condition. Risks, benefits, and alternatives have been discussed and questions answered. Patient agrees to proceed with procedure.
[2024-08-21 07:33] LABS: INR 1.1; Prothrombin Time 14.3 Seconds (11.1-14.7)
[2024-08-21] MEDS: LACTATED RINGERS 1,000 ML 30 ML IV CONT (07:35)
--- NOTE | 2024-08-21 07:37 | WPDANESEPPF ---
Anes - Initial Pre Proc Eval Procedure: Operation Date: 08/21/24 08:15 Proposed Procedures p Trans Urethral Resection Bladder Tumor with Gemcitabine Instillation - Joey Matias MD Date/Time: 08/21/24 07:37 Surgeon: Joey Matias MD Pre Op Diagnosis: Bladder Ca Patient Data Age: 74 Gender: M Height: 1.73 m Weight: 79.5 kg Allergies Allergy/AdvReac Type Severity Reaction Status Date / Time No Known Allergies Allergy Unknown Verified 08/12/24 09:08 Home Medications Medication Instructions Recorded Confirmed Type tamsulosin 0.4 mg capsule 0.4 mg PO HS 10/24/23 08/12/24 History ferrous sulfate 325 mg (65 mg 325 mg PO BID #60 tabs 02/04/24 08/12/24 Rx iron) tablet,delayed release lisinopril 20 mg tablet 20 mg PO DAILY #90 tabs 05/29/24 08/12/24 Rx rivaroxaban 15 mg tablet (Xarelto) 15 mg PO DAILY #30 tabs 05/29/24 08/12/24 Rx rosuvastatin 20 mg tablet See Rx Instructions .Route 05/29/24 08/12/24 Rx .COMPLEX #90 tabs meclizine 25 mg tablet 25 mg PO BID PRN dizziness #180 06/16/24 08/12/24 Rx tabs levothyroxine 112 mcg tablet 112 mcg PO DAILY #90 tabs 07/13/24 08/12/24 Rx hydrochlorothiazide 12.5 mg tablet 12.5 mg PO DAILY #30 tabs 08/12/24 08/12/24 Rx omeprazole 20 mg capsule,delayed 20 mg PO DAILY #90 caps 08/20/24 Rx release Laboratory Tests 08/21/24 07:16 PT Pending INR Pending Patient hx anesthesia problems: none Family hx anesthesia problems: none Results Review: All pre-operative results and documents have been reviewed as part of the pre-operative evaluation. [facility] Past Medical History Medical History Adenomatous colon polyp Anemia in chronic kidney disease Anxiety disorder due to medical condition Bladder cancer (08/2023) Noninvasive low-grade papillary urothelial carcinoma. Bulbous urethral stricture Gastroesophageal reflux disease Hyperlipidemia Hypertension Hypothyroidism Iron deficiency anemia Osteomyelitis of mandible Prostate cancer Status post radiation. Pure hypercholesterolemia Tongue cancer Status post radiation. Surgical History Surgical History History of colonoscopy with polypectomy History of cystoscopy History of hernia repair History of mandibular surgery History of transurethral resection of bladder tumor (TURBT) Family History Family History Father Diabetes mellitus Hypertension Acute angina Coronary artery disease Heart disease Mother Congestive heart failure Diabetes mellitus Sibling Myocardial infarction Heart disease Sibling No problems noted. Social History Social History Social History: Surrogate medical decision maker: Babita Schreiber, spouse. Code status: Full code. Smoking status: Never smoker Second hand tobacco smoke exposure: No Alcohol intake: current Drinks per week: 14 Alcohol use details: 3 BEERS/DAY Substance use: never Substance use type: marijuana Other substance usage details: Gummies occasionally Do You Feel Safe in your Home?: Yes Lack of Transportation: No Lack of Food: Never True Current Housing: I Have Housing Concerned About Future Housing: Decline to Answer Difficulty Paying Gas/Electric Bills: Decline to Answer Difficulty Paying for Meds: Decline to Answer Currently Unemployed: Decline to Answer Education: Master's Degree or Higher Difficulty w/ Childcare or Family Care: No Living arrangements: with family Additional living arrangements comments: Occupation/Education: retired 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 Spiritual care concerns: No Comments SINUS RHYTHM POSSIBLE LEFT ATRIAL ENLARGEMENT INCOMPLETE RIGHT BUNDLE BRANCH BLOCK BORDERLINE ECG VR 65 Anes - Eval Final PreProcedure Day of Procedure 08/21/24 07:37 Patient weight: normal Heart: regular rate and rhythm and irregular rhythm (RBBB) Lungs: clear to auscultation Airway: Mallampati scale class II Neurological: alert and oriented Last oral intake: >/= 8 hours ASA classification: III Emergent: no Anesthetic plan: proceed Anesthesia type and monitoring: general LMA Results Review: All pre-operative results and documents have been reviewed as part of the pre-operative evaluation. Informed Consent: The patient's anesthetic plan and its attendant risks and benefits were discussed with the patient/family/POA. Questions were solicited and answers provided to the satisfaction of the patient/family/POA.
[2024-08-21] MEDS: ceFAZolin 2 GM/D5W 50 ML 2 GM/50 ML BAG IVPB (08:09)
[2024-08-21] MEDS: LIDOCAINE HCL 2% GEL UROJET 10 ML PKG MUCOUS MEM (08:29)
--- NOTE | 2024-08-21 08:43 | W.PM.PROC2 ---
Procedure Note - Detailed Date of Procedure 08/21/24 Pre-op Diagnosis Bladder Ca Post-op Diagnosis Other ( 1. Recurrent bladder tumor 2. Bulbous urethral stricture 3. Large bladder clot) Procedure Performed TURBT (4cm-medium) Surgeon Joey Matias MD Anesthesia General Description of Procedure Patient is brought to the operative suite was prepped draped in routine sterile fashion in dorsal lithotomy position after the uneventful induction of a general anesthetic. 2% xylocaine jelly was introduced intraurethrally. Before I could pass the resectoscope I had to dilate his urethra from 18-28 F with Heath sounds because of a constricting bulbous urethral stricture. 24F resectoscope was placed. He and a moderate size clot that we had evacuated with a Franck syringe. The bladder was very carefully inspected. He has about a 4 cm area in the anterior bladder wall just inside the bladder neck with papillary regrowth of urothelial carcinoma. This is resected in its entirety with an attempt made to include detrusor muscle for pathological evaluation of invasion. Base and periphery was extensively cauterized. Resectoscope was removed and an 18 F urethral catheter was placed to drainage Drains Yes Packing No Pathology Yes Complications No immediate complications Condition Stable
--- NOTE | 2024-08-21 08:47 | W.PM.PROC2 ---
Procedure Note - Detailed Date of Procedure 08/21/24 Pre-op Diagnosis Bladder Ca Post-op Diagnosis Same Procedure Performed Gemcitabine installation Surgeon Joey Matias MD Anesthesia General Description of Procedure With the patient in the supine position, a 16F Lindsey catheter is placed using sterile technique. Using a protective facemask, gown and double layer of gloves Gemcitabine 2gm in 100cc saline is administered through the catheter/into the bladder. The catheter is then plugged. Patient was instructed to lie supine x20min, then to roll both the left and right x20 min. each. Total dwell time will be 60 min., after which the bladder will be drained and catheter removed.
[2024-08-21] MEDS: fentaNYL CITRATE INJ (*CRX) 100 MCG/2 ML VIAL 25 MCG IV PUSH ×4 (08:56→09:22)
[2024-08-21] MEDS: SODIUM CHLORIDE 0.9% IV 23.7 ML, GEMCITABINE HCL 1,000 MG BLADDER ×2 (09:05)
[2024-08-21] MEDS: oxyCODONE HCL (*CRX) 5 MG TAB IR PO (10:51)
== END 2024-08-21 11:20 | disposition home or self-care (01) ==
PROVIDERS: Registered Nurse; PCP Family Medicine; Visit Provider Urology
PROC: 0TBB8ZZ Excision of Bladder, Via Natural or Artificial Opening Endoscopic (ICD-10-PCS; CPT 52235; principal; 2024-08-21 08:15)
DX: C67.3 Malignant neoplasm of anterior wall of bladder (principal); N35.912 Unspecified bulbous urethral stricture, male; E03.9 Hypothyroidism, unspecified; D50.9 Iron deficiency anemia, unspecified; E78.00 Pure hypercholesterolemia, unspecified; D63.1 Anemia in chronic kidney disease; I12.9 Hypertensive chronic kidney disease with stage 1 through stage 4 chronic kidney disease, or unspecified chronic kidney disease; N18.9 Chronic kidney disease, unspecified; F41.9 Anxiety disorder, unspecified; K21.9 Gastro-esophageal reflux disease without esophagitis; Z79.01 Long term (current) use of anticoagulants; Z98.890 Other specified postprocedural states; Z92.3 Personal history of irradiation; Z86.0100 Personal history of colon polyps, unspecified; Z85.810 Personal history of malignant neoplasm of tongue; Z85.46 Personal history of malignant neoplasm of prostate; Z85.51 Personal history of malignant neoplasm of bladder; Z82.49 Family history of ischemic heart disease and other diseases of the circulatory system
CPT/HCPCS: 52235; 36415; 51720; 85610; 88305; A9270; J0690; J1100; J2003; J2405; J2704; J3010; J7120; J9201

== ENCOUNTER 2024-12-03 09:47 | Outpatient (CLI) | payer MEDICARE, SELFPAY ==
[2024-12-03 10:03] LABS: Basophils Percent Auto 0.6 % (0.2-1.2); Eosinophils Absolute Auto 0.4 K/mm3 (0-0.3); Eosinophils Percent Auto 8.1 % (0-4.4); Hematocrit 30.6 % (42.0-52.0); Hemoglobin 10.2 g/dL (14.0-18.0); Immature Granulocyte Absolute 0.01 K/mm3 (0.00-0.031); Immature Granulocyte Percent A 0.2 % (0-0.5); Lymphocytes Absolute Auto 0.73 K/mm3 (0.9-3.2); Lymphocytes Percent Auto 15.2 % (18.3-44.2); Mean Corpuscular HGB Conc 33.3 g/dl (32-36); Mean Corpuscular Hemoglobin 30.7 pg (26-34); Mean Corpuscular Volume 92.2 fl (80-100); Mean Platelet Volume 8.6 fl (7.4-10.4); Monocytes Absolute Auto 0.7 K/mm3 (0.1-0.6); Monocytes Percent Auto 13.8 % (2.6-8.5); Neutrophils Percent Auto 62.1 % (45.5-73.1); Platelet Count Result 225 k/mm3 (150-375); Red Blood Count 3.32 M/mm3 (4.6-6.20); White Blood Count 4.8 K/mm3 (4.5-10.0)
[2024-12-03 12:37] LABS: Iron 163 ug/dL (49-181)
[2024-12-03 12:39] LABS: Alanine Aminotransferase 17 U/L (6-50); Albumin Level 4.1 g/dL (3.5-5.1); Alkaline Phosphatase 59 U/L (38-126); Anion Gap 9 mmol/L (4-12); Aspartate Amino Transferase 26 U/L (17-59); Bilirubin,Total 0.4 mg/dL (0.2-1.3); Blood Urea Nitrogen 14 mg/dL (9-20); Calcium 9.2 mg/dL (8.4-10.2); Carbon Dioxide 26 mmol/L (22-30); Chloride 95 mmol/L (98-107); Estimated Glomerular Filt Rate > 60; Glucose 96 mg/dL (65-110); Potassium 4.2 mmol/L (3.4-5.0); Sodium 130 mmol/L (137-145)
[2024-12-03 12:46] LABS: Percent Iron Saturation 39 % (20-50)
[2024-12-03 13:45] LABS: Folic Acid 12.9 ng/mL (2.76->20)
== END 2024-12-03 09:48 | disposition home or self-care (01) ==
LOC: ANHLAB 09:48
PROVIDERS: PCP Family Medicine; Visit Provider Internal Medicine Hematology & Oncology
DX: D64.9 Anemia, unspecified (principal)
CPT/HCPCS: 36415; 80053; 82607; 82728; 82746; 83540; 83550; 85025

== ENCOUNTER 2025-02-27 08:39 | Outpatient (CLI) | payer MEDICARE, SELFPAY ==
--- OUTSIDE RECORDS SUMMARY | 2025-02-27 08:43 | XMS_ITS | Encounter Summary ---
Author Organization [facility] Address [address] [place] [address] Care Team Providers Care Information Technology Internship Name Role Phone Les [place] MD Primary Care Provider [phone] Encounter Details Date Type Department Care Team (Latest Contact Info) Description 05/11/2005 Outpatient Historical [facility] [place] [address] [facility] [address] [place] [address] Anibal Quezada MD [address] [facility] 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 [address] [place] [address] documented as of this encounter Procedures Procedure Name Priority Date/Time Associated Diagnosis Comments TSH REFLEXIVE Routine 05/11/2005 8:33 AM CDT documented in this encounter Results * TSH REFLEXIVE (05/11/2005 8:33 AM CDT) TSH 1.51 0.27 - 4.20 uU/mL INTERFACE SYSTEM 05/11/2005 8:33 AM CDT us Isaura Perez Mai, MD CHEMISTRY ORDERABLES Final Resul t INTERFACE SYSTEM Refer to clinic/hospital department documented in this encounter Visit Diagnoses Diagnosis 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 diff 01/19/2021 01/19/2021 01/19/2021 8:28 PM CDT documented as of this encounter Care Teams Information Technology Internship Relationship Specialty Start Date End Date Les [place] MD [address] [place] [address] PCP - General Family Practice 01/10/21 documented as of this encounter
--- OUTSIDE RECORDS SUMMARY | 2025-02-27 08:43 | XMS_ITS ---
Author Organization [facility] Address [address] [facility] 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 Past Treatment and Therapy Plans No past plan information found. Lifetime Dose Tracking * Chemical Lifetime Dose Automatic Entry Manual Entr y Effective Dose 13.4 mSv 13.4 mSv 0 mSv Total DLP 1,480 DLP 1,480 DLP 0 DLP CTDIvol Max 39.2 mGy 39.2 mGy 0 mGy CTDIvol Min 18.3 mGy 18.3 mGy 0 mGy
--- OUTSIDE RECORDS SUMMARY | 2025-02-27 08:43 | XMS_ITS | Encounter Summary ---
Author Organization [facility] Address [address] [place] [address] Care Team Providers Care Ice Cream Maker Name Role Phone Les [place] MD Primary Care Provider [phone] Encounter Details Date Type Department Care Team (Latest Contact Info) Description 05/21/2007 Outpatient Historical [facility] [place] [address] [facility] [address] [place] [address] Malignant Neoplasm of Base of Tongue (CMS/HCC) (Primary Dx) Social History Tobacco Use Types Packs/Day Years Used Date Smoking Tobacco: Never Assessed Sex and Gender Information Value Date Recorded Sex Assigned at Not on file Legal Sex Male 5:09 AM SCCM ADMINISTRATOR Gender Identity Not on file Sexual Orientation Not on file documented as of this encounter Plan of Treatment Upcoming Encounters Date Type Department Care Team (Late st Contact Info) Description 03/13/2025 12:15 PM CDT Office Visit [facility] Oncology and Hematology - [place] [address] [facility] [address] [place] [address] Alex Maciel MD [address] [facility] [address] [place] [address] documented as of this encounter Procedures Procedure Name Priority Date/Time Associated Diagnosis Comments TSH WITH REFLEX FT4 AND FT3 Routine 05/21/2007 7:43 AM CDT documented in this encounter Results * TSH WITH REFLEX FT4 AND FT3 (05/21/2007 7:43 AM CDT) TSH 2.44 0.27 - 4.20 uU/mL INTERFACE SYSTEM 05/21/2007 7:43 AM CDT us Isaura Perez Mai, MD CHEMISTRY ORDERABLES Edited INTERFACE SYSTEM Refer to clinic/hospital department documented in this encounter Visit Diagnoses Diagnosis 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 diff 01/19/2021 01/19/2021 01/19/2021 8:28 PM CDT documented as of this encounter Care Teams Ice Cream Maker Relationship Specialty Start Date End Date Les [place] MD [address] [place] [address] PCP - General Family Practice 01/10/21 documented as of this encounter
--- OUTSIDE RECORDS SUMMARY | 2025-02-27 08:43 | XMS_ITS | Encounter Summary ---
Author Organization [facility] Address [address] [place] [address] Care Team Providers Care Motor Coach Bus Driver Name Role Phone Lse [place] MD Primary Care Provider [phone] Encounter Details Date Type Department Care Team (Latest Contact Info) Description 05/03/2006 Outpatient Historical [facility] Anibal Quezada MD [address] [facility]. [facility] [address] [place] [address] Malignant Neoplasm of Base of Tongue (CMS/HCC) (Primary Dx) Social History Tobacco Use Types Packs/Day Years Used Date Smoking Tobacco: Never Assessed Sex and Gender Information Value Date Recorded Sex Assigned at Not on file Legal Sex Male 5:09 AM SHOE LAY OUT PLANNER Gender Identity Not on file Sexual Orientation Not on file documented as of this encounter Plan of Treatment Upcoming Encounters Date Type Department Care Team (Late st Contact Info) Description 03/13/2025 12:15 PM CDT Office Visit [facility] Oncology and Hematology - [place] [address] [facility] [address] [place] [address] Alex Maciel MD [address] [facility] [address] [place] [address] documented as of this encounter Procedures Procedure Name Priority Date/Time Associated Diagnosis Comments TSH REFLEXIVE Routine 05/24/2006 8:51 AM CDT documented in this encounter Results * TSH REFLEXIVE (05/24/2006 8:51 AM CDT) TSH 1.66 0.27 - 4.20 uU/mL INTERFACE SYSTEM 05/24/2006 8:51 AM CDT us Anibal Quezada MD CHEMISTRY ORDERABLES Final Resul t INTERFACE SYSTEM Refer to clinic/hospital department documented in this encounter Visit Diagnoses Diagnosis 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 diff 01/19/2021 01/19/2021 01/19/2021 8:28 PM CDT documented as of this encounter Care Teams Motor Coach Bus Driver Relationship Specialty Start Date End Date Les Maosn MD [address] [place] [address] PCP - General Family Practice 01/10/21 documented as of this encounter
--- OUTSIDE RECORDS SUMMARY | 2025-02-27 08:43 | XMS_ITS | Encounter Summary ---
Author Organization [facility] Address [address] [place] [address] Care Team Providers Care Irrigation Service Technician Name Role Phone Les [place] MD Primary Care Provider [phone] Encounter Details Date Type Department Care Team (Latest Contact Info) Description 04/05/2006 Outpatient Historical [facility] [place] [address] [facility] [address] [place] [address] Anibal Quezada MD [address] [facility]. 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 LINE TECHNICIAN Gender Identity Not on file Sexual Orientation Not on file documented as of this encounter Plan of Treatment Upcoming Encounters Date Type Department Care Team (Late st Contact Info) Description 03/13/2025 12:15 PM CDT Office Visit [facility] Oncology and Hematology - [place] [address] [facility] [address] [place] [address] Alex Maciel MD [address] [facility] [address] [place] [address] documented as of this encounter Visit Diagnoses Diagnosis 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 diff 01/19/2021 01/19/2021 01/19/2021 8:28 PM CDT documented as of this encounter Care Teams Irrigation Service Technician Relationship Specialty Start Date End Date Les [place] MD [address] [place] [address] PCP - General Family Practice 01/10/21 documented as of this encounter
--- OUTSIDE RECORDS SUMMARY | 2025-02-27 08:43 | XMS_ITS | Encounter Summary ---
Author Organization [facility] Address [address] [place] [address] Care Team Providers Care Nut Roaster Helper Name Role Phone Les [place] MD Primary Care Provider [phone] Encounter Details Date Type Department Care Team (Latest Contact Info) Description 06/20/2005 Outpatient Historical [facility] [place] [address] [facility] [address] [place] [address] DEMETRIO LOPEZ HEAD/FACE/NECK (CMS/HCC) (Primary Dx) Social History Tobacco Use Types Packs/Day Years Used Date Smoking Tobacco: Never Assessed Sex and Gender Information Value Date Recorded Sex Assigned at Not on file Legal Sex Male 5:09 AM PROMOTION MANAGER Gender Identity Not on file Sexual Orientation Not on file documented as of this encounter Plan of Treatment Upcoming Encounters Date Type Department Care Team (Late st Contact Info) Description 03/13/2025 12:15 PM CDT Office Visit [facility] Oncology and Hematology [place] [address] [place] [address] [facility] [address] [place] [address] Alex Maciel MD [address] [facility] [address] [place] [address] documented as of this encounter Visit Diagnoses Diagnosis Malignant neoplasm of head, face, and neck (CMS/HCC)- Primary Malignant neoplasm of head, face, and neck documented in this encounter Additional Health Concerns Infection Onset Date Last Indicated Resolved Time R/O C. diff 01/19/2021 01/19/2021 01/19/2021 8:28 PM CDT documented as of this encounter Care Teams Nut Roaster Helper Relationship Specialty Start Date End Date Les [place] MD [address] [place] [address] PCP - General Family Practice 01/10/21 documented as of this encounter
--- OUTSIDE RECORDS SUMMARY | 2025-02-27 08:43 | XMS_ITS | Encounter Summary ---
Author Organization [facility] Address [address] [place] [address] Care Team Providers Care Air Motor Repairer Name Role Phone Les [place] MD Primary Care Provider [phone] Encounter Details Date Type Department Care Team (Latest Contact Info) Description 11/20/2006 Outpatient Historical [facility] [place] [address] [facility] [address] [place] [address] Anibal Quezada MD [address] [facility]. [facility] [address] [place] [address] Radiotherapy Follow-Up Examination (Primary Dx) Social History Tobacco Use Types Packs/Day Years Used Date Smoking Tobacco: Never Assessed Sex and Gender Information Value Date Recorded Sex Assigned at Not on file Legal Sex Male 5:09 AM SYSTEM SUPPORT SPECIALIST Gender Identity Not on file Sexual Orientation Not on file documented as of this encounter Plan of Treatment Upcoming Encounters Date Type Department Care Team (Late st Contact Info) Description 03/13/2025 12:15 PM CDT Office Visit [facility] Oncology and Hematology - [place] [address] [facility] [address] [place] [address] Alex Maciel MD [address] [facility] [address] [place] [address] documented as of this encounter Visit Diagnoses Diagnosis Radiotherapy follow-up examination- Primary documented in this encounter Additional Health Concerns Infection Onset Date Last Indicated Resolved Time R/O C. diff 01/19/2021 01/19/2021 01/19/2021 8:28 PM CDT documented as of this encounter Care Teams Air Motor Repairer Relationship Specialty Start Date End Date Les [place] MD [address] [place] [address] PCP - General Family Practice 01/10/21 documented as of this encounter
--- OUTSIDE RECORDS SUMMARY | 2025-02-27 08:43 | XMS_ITS | Encounter Summary ---
Author Organization [facility] Address [address] [place] [address] Care Team Providers Care Metals Analyst Name Role Phone Les Mason MD Primary Care Provider [phone] Encounter Details Date Type Department Care Team (Latest Contact Info) Description 02/02/2009 Outpatient Historical [facility] Tootie Luna MD 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 Gender Identity Not on file Sexual Orientation Not on file documented as of this encounter Plan of Treatment Upcoming Encounters Date Type Department Care Team (Late st Contact Info) Description 03/13/2025 12:15 PM CDT Office Visit [facility] Oncology and Hematology - [place] [address] [facility] [address] [place] [address] Alex Maciel MD [address] [facility] [address] [place] [address] documented as of this encounter Procedures Procedure Name Priority Date/Time Associated Diagnosis Comments XR CHEST PA AND LATERAL 2 VW Routine 02/02/2009 9:25 AM CDT documented in this encounter Results * XR CHEST PA AND LATERAL (02/02/2009 9:25 AM CDT) Anatomical Region Laterality Modality Chest Other 02/02/2009 9:25 AM CDT Narrative 02/02/2009 12:42 PM CDT [address] [address] Admit Date: 02/02/2009 DAVION VARGAS Sex: M Admit Prov: TOOTIE LUNA Date: 1950 Primary Care Prov: JESICA GRAMAJO CMRN: [id number] [facility] [address] [place] [address] IMAGING SERVICES Ordering Prov: N/A Accession Number: [id number] Interpretation PA AND LATERAL CHEST X-RAY. 02/02/2009 History: Lung malignancy. Findings: Since the previous examination of May 21, 2007, there has been no significant interval change. The lung adam are clear and well aerated, without significant infiltrate. There is no pneumothorax or pleural effusion. The heart size is normal. IMPRESSION: No acute disease. . Dictated by: LONA SOUZA 02/02/2009 09:11 Electronically signed by: LONA SOUZA 02/02/2009 12:41 Transcribed: 02/02/2009 10:33 AMK Procedure Note Lona Souza MD - 02/02/[address] [place] [address] Admit Date: 02/02/2009 DAVION VARGAS Sex: M Admit Prov: TOOTIE LUNA Date: 1950 Primary Care Prov: JESICA GRAMAJO CMRN: [id number] [facility] [address] [place] [address] IMAGING SERVICES Ordering Prov: N/A Interpretation PA AND LATERAL CHEST X-RAY. 02/02/2009 History: Lung malignancy. Findings: Since the previous examination of May 21, 2007, there hasbeen no significant interval change. The lung adam are clear and wellaerated, without significant infiltrate. There is no pneumothorax or pleural effusion. The heart size is normal. IMPRESSION: No acute disease. . Dictated by: LONA SOUZA 02/02/2009 09:11 Electronically signed by: LONA SOUZA 02/02/2009 12:41 Transcribed: 02/02/2009 10:33 AMK Tootie Luna MD DIAGNOSTIC IMAGING ORDERABLES Fi nal Result documented in this encounter Visit Diagnoses Diagnosis Malignant neoplasm of base of tongue (CMS/HCC) Malignant neoplasm of base of tongue documented in this encounter Additional Health Concerns Infection Onset Date Last Indicated Resolved Time R/O C. diff 01/19/2021 01/19/2021 01/19/2021 8:28 PM CDT documented as of this encounter Care Teams Metals Analyst Relationship Specialty Start Date End Date Les Mason MD [address] [place] [address] PCP - General Family Practice 01/10/21 documented as of this encounter
--- OUTSIDE RECORDS SUMMARY | 2025-02-27 08:43 | XMS_ITS | Encounter Summary ---
Author Organization [facility] Address [address] [place] [address] Care Team Providers Care Road Machine Operator Name Role Phone Les Mason MD Primary Care Provider [phone] Encounter Details Date Type Department Care Team (Late Contact Info) Description 11/24/2004 Outpatient Historical [facility] [place] [address] [facility] [address] [place] [address] Anibal Quezada MD [address] [facility] [address] [place] [address] Social History Tobacco Use Types Packs/Day Years Used Date Smoking Tobacco: Never Assessed Sex and Gender Information Value Date Recorded Sex Assigned at Not on file 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 Gender Identity Not on file Sexual Orientation Not on file documented as of this encounter Plan of Treatment Upcoming Encounters Date Type Department Care Team (Late st Contact Info) Description 03/13/2025 12:15 PM CDT Office Visit [facility] Oncology and Hematology - [place] [address] [facility] [address] [place] [address] Alex Maciel MD [address] [facility] [address] [place] [address] documented as of this encounter Visit Diagnoses Not on filedocumented in this encounter Additional Health Concerns Infection Onset Date Last Indicated Resolved Time R/O C. diff 01/19/2021 01/19/2021 01/19/2021 8:28 PM CDT documented as of this encounter Care Teams Road Machine Operator Relationship Specialty Start Date End Date Les Mason MD [address] [place] [address] PCP - General Family Practice 01/10/21 documented as of this encounter
--- OUTSIDE RECORDS SUMMARY | 2025-02-27 08:43 | XMS_ITS | Encounter Summary ---
Author Organization [facility] Address [address] [place] [address] Care Team Providers Care Film Editor Name Role Phone Les Mason MD Primary Care Provider [phone] Encounter Details Date Type Department Care Team (Late st Contact Info) Description 06/04/2006 Outpatient Historical [facility] Anibal Quezada MD [address] 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 Gender Identity Not on file Sexual Orientation Not on file documented as of this encounter Plan of Treatment Upcoming Encounters Date Type Department Care Team (Late st Contact Info) Description 03/13/2025 12:15 PM CDT Office Visit [facility] Oncology and Hematology - [place] [address] [facility] [address] [place] [address] Alex Maciel MD [address] [facility] [address] [place] [address] documented as of this encounter Visit Diagnoses Not on filedocumented in this encounter Additional Health Concerns Infection Onset Date Last Indicated Resolved Time R/O C. diff 01/19/2021 01/19/2021 01/19/2021 8:28 PM CDT documented as of this encounter Care Teams Film Editor Relationship Specialty Start Date End Date Les Mason MD [address] [place] [address] PCP - General Family Practice 01/10/21 documented as of this encounter
--- OUTSIDE RECORDS SUMMARY | 2025-02-27 08:43 | XMS_ITS | Clinical Summary ---
Author Organization Cristino Morrow [facility] Address [address] [place] [address] Phone Care Team Providers Care Sole Molder Name Role Phone Les Mason MD Primary Care Provider [phone] Allergies No known active allergies Medications rosuvastatin (CRESTOR) 20 mg tablet Take 20 mg by mouth daily. 12/18/2020 Active levothyroxine 112 mcg tablet Take 112 mcg by mouth daily in the morning. Active lisinopriL (PRINIVIL) 10 mg tablet Take 10 mg by mouth daily. Active HYDROcodone-fabio taminophen (NORCO) 5-325 mg tabletIndicatio ns:Osteoradione crosis (CMS/HCC) Take 1 Tablet by mouth every 4 hours as needed for Pain, Moderate. Max Daily Amount: 6 Tablets 30 Tablet 01/25/2021 Active chlorhexidine gluconate 0.12 % Mouthwash RINSE AND GARGLE 15 ML BY MOUTH TWICE DAILY 473 mL 2 11/28/2021 Active ferrous fumarate 89 mg (29 mg iron) Tablet Take 89 mg by mouth daily. Active hydroCHLOROthia zide 12.5 mg tablet Take 1 Tablet by mouth daily. 04/11/2024 Active cyanocobalamin 1,000 mcg Tablet Take 1,000 mcg by mouth daily. Active rivaroxaban (Xarelto) 15 mg Tablet Take 1 tablet by mouth daily. 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 Hypothyroidism Tongue cancer Constriction of airway Encounters Date Type Department Care Team Description 12/10/2024 External Device Data STL ABSTRACTION Provider, Abstract 12/09/2024 External Device Data STL ABSTRACTION Provider, Abstract 12/05/2024 9:30 AM COMPUTER GRAPHIC DESIGNER Office Visit [facility] Oncology and Hematology [facility] [address] [place] [address] Alex Maciel MD Chronic anemia (Primary Dx); Acute deep vein thrombosis (DVT) of proximal vein of right lower extremity (CMS/HCC) 12/04/2024 Orders Only [facility] Oncology and Hematology [place] [address] [place] [address] Alex Maciel MD from Last 3 Months Family History Medical History Relation Name Comments Heart Disease Brother 1 Prostate Cancer Brother 1 No Known Problems Brother 2 No Known Problems Brother 3 No Known Problems Child Diabetes Father Heart Disease Father Diabetes Mother Heart Disease Mother No Known Problems Sister Relation Name Status Comments Brother 1 Brother 2 Alive Brother 3 Alive Child Alive Father Mother Sister Alive Social History Tobacco Use Types Packs/Day Years Used Date Smoking Tobacco: Never Smokeless Tobacco: Never Tobacco Cessation:Counseling Given: Not Answered Alcohol Use Standard Drinks/Week Comments Yes 3 (1 standard drink = 0.6 oz pur e alcohol) Sex and Gender Information Value Date Recorded Sex Assigned at Not on file Legal Sex Male 5:09 AM COMPUTER GRAPHIC DESIGNER Gender Identity Not on file Sexual Orientation Not on file Last Filed Vital Signs Vital Sign Reading Time Taken Comments Blood Pressure 119/70 12/05/2024 9:11 AM COMPUTER GRAPHIC DESIGNER Pulse 93 12/05/2024 9:11 AM COMPUTER GRAPHIC DESIGNER Temperature 36.4 C (97.6 F) 12/05/2024 9:11 AM COMPUTER GRAPHIC DESIGNER Respiratory Rate 18 12/05/2024 9:11 AM COMPUTER GRAPHIC DESIGNER Oxygen Saturation 94% 12/05/2024 9:11 AM COMPUTER GRAPHIC DESIGNER Inhaled Oxygen Concentration - - Weight 83 kg (183 lb) 12/05/2024 9:11 AM COMPUTER GRAPHIC DESIGNER Height 172.7 cm (5' 8 ) 03/17/2021 9:50 AM CDT Body Mass Index 27.83 03/17/2021 9:50 AM CDT Plan of Treatment Upcoming Encounters Date Type Department Care Team (Late st Contact Info) Description 03/13/2025 12:15 PM CDT Office Visit [facility] Oncology and Hematology - [place] [address] [facility] [address] [place] [address] Alex Maciel MD [address] [facility] [address] [place] [address] Health Maintenance Due Date Last Done Comments COLORECTAL SCREENING 1995 Colorectal Cancer Screening 1995 FIT-DNA Q 3 years 1995 FIT/FOBT Q 1 year 1995 Flex Sig/CT Colonography Q 5 years 1995 PNEUMOCOCCAL VACCINE 50+ YEARS (1 of 1 - PCV) 05/28/20 00 ZOSTER VACCINE (1 of 2) 2000 INFLUENZA VACCINE (#1) 2024 Medicare Advantage ([place]) Prev entative Visit/Annual Wellness Visit 10/22/2024 RSV VACCINE (60+ or ) (1 - 1-dose 75+ series) 2025 DTAP/TDAP/TD VACCINES (2 - Td or Tdap) 06/01/2034 Medical Devices Implanted Type Area Used Car Renovator Device Identifier Shelf Expiration Date Model / Serial / Lot Clip Ligating Horizon Sm Ti [id number] - [facility] [place] [id number] Implanted:Qty: 1 on 01/17/2021 by Anibal Garcia MD at [facility] Clip Right: Leg TELE[employer]LEX INC 01/05/2025 [id number] / / [id number] Clip Ligating Horizon Med Ti 081056 - Csc - [id number] Implanted:Qty: 1 on 01/17/2021 by Anibal Garcia MD at [facility] Clip Right: Leg TELEFLEX- WECK CLOSURE SYS 04/07/2025 [id number] / / [id number] Clip Micro [place] 6s [id number] - [id number] Implanted:Qty: 1 on 01/17/2021 by Anibal Garcia MD at [facility] Clip N/A: Face VITALITEC INTL [id number] 11/21/2023 [id number] 1 / / [id number] Clip Ligating Horizon Med Ti 628138 - [facility] - [id number] Implanted:Qty: 1 on 01/17/2021 by Anibal Garcia MD at [facility] Clip Right: Leg TELEFLEX- WECK CLOSURE SYS 05/17/2025 [id number] / / [id number] Clip Micro [place] 6s [id number] - [id number] Implanted:Qty: 1 on 01/17/2021 by Anibal Garcia MD at [facility] Clip N/A: Face VITALITEC INTL [id number] 04/20/2024 [id number] / [id number] Clip Ligating Horizon Sm Ti [id number] - [facility] - [id number] Implanted:Qty: 1 on 01/17/2021 by Anibal Garcia MD at [facility] Clip Right: Leg TELEFLEX INC [id number] 06/11/2023 [id number] / / [id number] Shirt Creaser Microvasc Anastomotic 3.5mm [id number] - [id number] Implanted:Qty: 1 on 01/17/2021 by Anibal Garcia MD at [facility] Other N/A: Face SYNOVIS- MICRO CO ALLIANCE 12/09/2025 [id number] / / [id number] Plate Matrixmandible Sharon Recon 04.503.733 - Ssterilized Jan 06 Implanted:Qty: 1 on 01/17/2021 by Anibal Quezada MD at [facility] Plate Right: Mandible SYNTHES-STRATEC - MAXIFACIAL 04.503.7 33 / STERILIZ ED JAN 06 21 / LOAD [address] Loc 2.0mm 04.503.618.01 - Ssterilized Jan 06 Implanted:Qty: 1 on 01/17/2021 by Anibal Quezada MD at [facility] Screw N/A: Mandible SYNTHES-STRATEC - MAXIFACIAL 04.503.6 18.01 / STERILIZ ED JAN 06 21 / LOAD [address] Loc 2.0mm 04.503.614.01 - Ssterilized Jan 06 Implanted:Qty: 2 on 01/17/2021 by Anibal Quezada MD at [facility] Screw N/A: Mandible SYNTHES-STRATEC - MAXIFACIAL 04.503.6 14.01 / STERILIZ ED JAN 06 / LOAD 212 Screw Sd Loc 2.0x8mm 04.503.548.01 - Ssterilized Jan 06 Implanted:Qty: 3 on 01/17/2021 by Anibal Quezada MD at [facility] Screw N/A: Mandible SYNTHES-STRATEC - MAXIFACIAL 04.503.5 48.01 / STERILIZ ED JAN 06 / LOAD [address] Loc 2.0mm 04.503.610.01 - Ssterilized Jan 06 Implanted:Qty: 1 on 01/17/2021 by Anibal Garcia MD at [facility] Screw N/A: Mandible SYNTHES-STRATEC - MAXIFACIAL 04.503.6 10.01 / STERILIZ ED JAN 06 / LOAD 212 Description:All Synthes faci al components are processed on requisition, 060253. Screw Matrixmandible St Loc 2.0mm 04.503.612.01 - Ssterilized Jan 06 Implanted:Qty: 1 on 01/17/2021 by Anibal Garcia MD at [facility] Screw N/A: Mandible SYNTHES-STRATEC - MAXIFACIAL 04.503.6 12.01 / STERILIZ ED JAN 06 / LOAD [address] Loc 2.0mm 04.503.618.01 - Ssterilized Jan 06 Implanted:Qty: 1 on 01/17/2021 by Anibal Garcia MD at [facility] Screw N/A: Mandible SYNTHES-STRATEC - MAXIFACIAL 04.503.6 18.01 / STERILIZ ED JAN 06 / LOAD 212 Tube Trach Cuf Lopre Sz 8 8dct - [id number] Implanted:Qty: 1 on 01/17/2021 by Anibal Garcia MD at [facility] Trach N/A: Trachea MEDTRONIC - COVIDIEN 10/06/2025 8DCT / / [id number] Explanted Type Area Used Car Renovator Device Identifier Shelf Expiration Date Model / Serial / Lot Screw Sd Loc 2.0x8mm 04.503.548.01 - Ssterilized Jan 06 Implanted:Anibal Quezada MD (Quantity not on file) Explanted:Qty: 1 on 01/17/2021 by Anibal Quezada MD at [facility] Screw N/A: Mandible SYNTHES-STRATEC- MAXIFACIAL 04.503.54 8.01 / STERILIZE D JAN 06 21 / 212 Procedures Procedure Name Priority Date/Time Associated Diagnosis Comments CBC WITH DIFFERENTIAL Routine 12/03/2024 8:46 AM COMPUTER GRAPHIC DESIGNER from Last 3 Months Results * CBC WITH DIFFERENTIAL (12/03/2024 8:46 AM COMPUTER GRAPHIC DESIGNER) Blood us Alex Maciel MD HEMATOLOGY ORDERABLES Final Res ult from Last 3 Months Insurance Member Subscriber Plan / Payer (Ef fective for All Dates) Name:Angel Vargas Relation to Subscriber:Self Name:Angel Vargas Payer ID:Not on file Group ID:[id number] Type:RX Medicare Part D [facility] [id number] Advance Directives For more information, please contact: [phone] Documents on File Type Date Recorded Patient Pea Viner Mechanic Expl anation Advance Directive Living Will 01/24/2021 12:02 PM Advance Directive Living Will Advance Directive POA 01/24/2021 12:00 PM A dvance Directive POA * Full Code (Latest Code Status on File) Date Activated Date Inactivated Comments 01/17/2021 5:02 PM 01/25/2021 6:46 PM * Full Code Date Activated Date Inactivated Comments 01/17/2021 5:46 AM 01/17/2021 5:02 PM Care Teams Sole Molder Relationship Specialty Start Date End Date Les Mason MD [address] [place] [address] PCP - General Family Practice 01/10/21
--- OUTSIDE RECORDS SUMMARY | 2025-02-27 08:43 | XMS_ITS | Encounter Summary ---
Author Organization [facility] Address [address] [place] [address] Care Team Providers Care Legal Advisor Name Role Phone Les Mason MD Primary Care Provider [phone] Encounter Details Date Type Department Care Team (Latest Contact Info) Description 04/03/2006 Outpatient Historical [facility] Anibal Quezada MD [address] 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 Gender Identity Not on file Sexual Orientation Not on file documented as of this encounter Plan of Treatment Upcoming Encounters Date Type Department Care Team (Late st Contact Info) Description 03/13/2025 12:15 PM CDT Office Visit [facility] Oncology and Hematology - [place] [address] [facility] [address] [place] [address] Alex Maciel MD [address] [facility] [address] [place] [address] documented as of this encounter Visit Diagnoses Diagnosis Follow-up examination, following other surgery- Primary documented in this encounter Additional Health Concerns Infection Onset Date Last Indicated Resolved Time R/O C. diff 01/19/2021 01/19/2021 01/19/2021 8:28 PM CDT documented as of this encounter Care Teams Legal Advisor Relationship Specialty Start Date End Date Les Mason MD [address] [place] [address] PCP - General Family Practice 01/10/21 documented as of this encounter
--- OUTSIDE RECORDS SUMMARY | 2025-02-27 08:43 | XMS_ITS | Encounter Summary ---
Author Organization [facility] Address [address] [place] [address] Care Team Providers Care Public Information Relations Manager Name Role Phone Les Mason MD Primary Care Provider [phone] Encounter Details Date Type Department Care Team (Latest Contact Info) Description 01/26/2005 Outpatient Historical [facility] [place] [address] [facility] [address] [place] [address] Anibal Quezada MD [address] [facility] 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 [address] [place] [address] Alex Maciel MD [address] [facility] [address] [place] [address] documented as of this encounter Visit Diagnoses Diagnosis Malignant neoplasm of head, face, and neck (CMS/HCC)- Primary Malignant neoplasm of head, face, and neck documented in this encounter Additional Health Concerns Infection Onset Date Last Indicated Resolved Time R/O C. diff 01/19/2021 01/19/2021 01/19/2021 8:28 PM CDT documented as of this encounter Care Teams Public Information Relations Manager Relationship Specialty Start Date End Date Les Mason MD [address] [place] [address] PCP - General Family Practice 01/10/21 documented as of this encounter
--- OUTSIDE RECORDS SUMMARY | 2025-02-27 08:43 | XMS_ITS | Encounter Summary ---
Author Organization [facility] Address [address] [place] [address] Care Team Providers Care Child Care Coordinator Name Role Phone Les Mason MD Primary Care Provider [phone] Encounter Details Date Type Department Care Team (Latest Contact Info) Description 04/27/2005 Outpatient Historical [facility] Anibal Quezada MD [address] [facility] [address] [address] [facility] [address] [place] [address] MALIG NEOPLASM TONGUE NOS (CMS/HCC) (Primary Dx) Social History Tobacco Use Types Packs/Day Years Used Date Smoking Tobacco: Never Assessed Sex and Gender Information Value Date Recorded Sex Assigned at Not on file Legal Sex Male 5:09 AM ANCILLARY SERVICES MANAGER THERAPY Gender Identity Not on file Sexual Orientation Not on file documented as of this encounter Plan of Treatment Upcoming Encounters Date Type Department Care Team (Late st Contact Info) Description 03/13/2025 12:15 PM CDT Office Visit [facility] Oncology and Hematology - [place] [address] [facility] [address] [place] [address] Alex Maciel MD [address] [facility] [address] [place] [address] documented as of this encounter Visit Diagnoses Diagnosis Malignant neoplasm of tongue, 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 diff 01/19/2021 01/19/2021 01/19/2021 8:28 PM CDT documented as of this encounter Care Teams Child Care Coordinator Relationship Specialty Start Date End Date Les Mason MD [address] [place] [address] PCP - General Family Practice 01/10/21 documented as of this encounter
--- OUTSIDE RECORDS SUMMARY | 2025-02-27 08:43 | XMS_ITS | Encounter Summary ---
Author Organization [facility] Address [address] [place] [address] Care Team Providers Care Exhibit Technician Name Role Phone Les Mason MD Primary Care Provider [phone] Encounter Details Date Type Department Care Team (Latest Contact Info) Description 09/07/2005 Outpatient Historical [place] [address] [facility] [address] [place] [address] Anibal Quezada MD [address] [facility]. 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 Gender Identity Not on file Sexual Orientation Not on file documented as of this encounter Plan of Treatment Upcoming Encounters Date Type Department Care Team (Late st Contact Info) Description 03/13/2025 12:15 PM CDT Office Visit [facility] Oncology and Hematology - [place] [address] [facility] [address] [place] [address] Alex Maciel MD [address] [facility] [address] [place] [address] documented as of this encounter Visit Diagnoses Diagnosis 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 diff 01/19/2021 01/19/2021 01/19/2021 8:28 PM CDT documented as of this encounter Care Teams Exhibit Technician Relationship Specialty Start Date End Date Les Mason MD [address] [place] [address] PCP - General Family Practice 01/10/21 documented as of this encounter
--- OUTSIDE RECORDS SUMMARY | 2025-02-27 08:44 | XMS_ITS | Encounter Summary ---
Author Organization [facility] Address [address] [place] [address] Care Team Providers Care Tank Wagon Driver Name Role Phone Les Mason MD Primary Care Provider [phone] Encounter Details Date Type Department Care Team (Latest Contact Info) Description 09/21/2004 Outpatient Historical [place] [address] [facility] [address] [place] [address] Anibal Quezada MD [address] [facility]. 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 Gender Identity Not on file Sexual Orientation Not on file documented as of this encounter Plan of Treatment Upcoming Encounters Date Type Department Care Team (Late st Contact Info) Description 03/13/2025 12:15 PM CDT Office Visit [facility] Oncology and Hematology - [place] [address] [facility] [address] [place] [address] Alex Maciel MD 2[address] [facility] [address] [place] [address] documented as of this encounter Visit Diagnoses Diagnosis Malignant neoplasm of head, face, and neck (CMS/HCC)- Primary Malignant neoplasm of head, face, and neck documented in this encounter Additional Health Concerns Infection Onset Date Last Indicated Resolved Time R/O C. diff 01/19/2021 01/19/2021 01/19/2021 8:28 PM CDT documented as of this encounter Care Teams Tank Wagon Driver Relationship Specialty Start Date End Date Les Mason MD [address] [place] [address] PCP - General Family Practice 01/10/21 documented as of this encounter
--- OUTSIDE RECORDS SUMMARY | 2025-02-27 08:44 | XMS_ITS | Encounter Summary ---
Author Organization [facility] Address [address] [place] [address] Care Team Providers Care Builder Operator Name Role Phone Les Mason MD Primary Care Provider [phone] Encounter Details Date Type Department Care Team (Latest Contact Info) Description 05/21/2007 Outpatient Historical [place] [address] 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 Gender Identity Not on file Sexual Orientation Not on file documented as of this encounter Plan of Treatment Upcoming Encounters Date Type Department Care Team (Late st Contact Info) Description 03/13/2025 12:15 PM CDT Office Visit [facility] Oncology and Hematology [place] [address] [place] [address] [address] Alex Maciel MD [address] [facility] [address] [place] [address] documented as of this encounter Visit Diagnoses Diagnosis 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 diff 01/19/2021 01/19/2021 01/19/2021 8:28 PM CDT documented as of this encounter Care Teams Builder Operator Relationship Specialty Start Date End Date Les Mason MD [address] [place] [address] PCP - General Family Practice 01/10/21 documented as of this encounter
--- OUTSIDE RECORDS SUMMARY | 2025-02-27 08:44 | XMS_ITS | Encounter Summary ---
Author Organization [facility] Address [address] [place] [address] Care Team Providers Care Wire Drawing Die Maker Name Role Phone Les Mason MD Primary Care Provider [phone] Encounter Details Date Type Department Care Team (Latest Contact Info) Description 07/19/2004 Outpatient Historical [place] [address] [facility] [address] [place] [address] Anibal Quezada MD [address] [facility]. 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 Gender Identity Not on file Sexual Orientation Not on file documented as of this encounter Plan of Treatment Upcoming Encounters Date Type Department Care Team (Late st Contact Info) Description 03/13/2025 12:15 PM CDT Office Visit [facility] Oncology and Hematology - [place] 2[address] [facility] [address] [place] [address] Alex Maciel MD [address] [facility] [address] [place] [address] documented as of this encounter Visit Diagnoses Diagnosis Malignant neoplasm of head, face, and neck (CMS/HCC)- Primary Malignant neoplasm of head, face, and neck documented in this encounter Additional Health Concerns Infection Onset Date Last Indicated Resolved Time R/O C. diff 01/19/2021 01/19/2021 01/19/2021 8:28 PM CDT documented as of this encounter Care Teams Wire Drawing Die Maker Relationship Specialty Start Date End Date Les Mason MD [address] [place] [address] PCP - General Family Practice 01/10/21 documented as of this encounter
--- OUTSIDE RECORDS SUMMARY | 2025-02-27 08:44 | XMS_ITS | Encounter Summary ---
Author Organization [facility] Address [address] [place] [address] Care Team Providers Care Handbag Operator Name Role Phone Les Mason MD Primary Care Provider [phone] Encounter Details Date Type Department Care Team (Late st Contact Info) Description 06/29/2004 Outpatient Historical [facility] (Adt Cardiology[facility]) [address] 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 Gender Identity Not on file Sexual Orientation Not on file documented as of this encounter Plan of Treatment Upcoming Encounters Date Type Department Care Team (Late st Contact Info) Description 03/13/2025 12:15 PM CDT Office Visit [facility] Oncology and Hematology - [place] [address] [facility] 200 [place] [address] Alex Maciel MD 2[address] [facility] [address] [place] [address] documented as of this encounter Visit Diagnoses Not on filedocumented in this encounter Additional Health Concerns Infection Onset Date Last Indicated Resolved Time R/O C. diff 01/19/2021 01/19/2021 01/19/2021 8:28 PM CDT documented as of this encounter Care Teams Handbag Operator Relationship Specialty Start Date End Date Les Mason MD [address] [place] [address] PCP - General Family Practice 01/10/21 documented as of this encounter
--- OUTSIDE RECORDS SUMMARY | 2025-02-27 08:44 | XMS_ITS | Encounter Summary ---
Author Organization [facility] Address [address] [place] [address] Care Team Providers Care Logistics Loss Prevention Manager Name Role Phone Les Mason MD Primary Care Provider [phone] Encounter Details Date Type Department Care Team (Latest Contact Info) Description 08/20/2004 Outpatient Historical [place] [address] [facility] [address] [place] [address] Anibal Quezada MD [address] [facility]. 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 Gender Identity Not on file Sexual Orientation Not on file documented as of this encounter Plan of Treatment Upcoming Encounters Date Type Department Care Team (Late st Contact Info) Description 03/13/2025 12:15 PM CDT Office Visit [facility] Oncology and Hematology - [place] [address] [facility] [address] [place] [address] Alex Maciel MD 2[address] [facility] [address] [place] [address] documented as of this encounter Visit Diagnoses Diagnosis Malignant neoplasm of head, face, and neck (CMS/HCC)- Primary Malignant neoplasm of head, face, and neck documented in this encounter Additional Health Concerns Infection Onset Date Last Indicated Resolved Time R/O C. diff 01/19/2021 01/19/2021 01/19/2021 8:28 PM CDT documented as of this encounter Care Teams Logistics Loss Prevention Manager Relationship Specialty Start Date End Date Les Mason MD [address] [place] [address] PCP - General Family Practice 01/10/21 documented as of this encounter
--- OUTSIDE RECORDS SUMMARY | 2025-02-27 08:44 | XMS_ITS | Encounter Summary ---
Author Organization [facility] Address [address] [facility] [place] [address] Care Team Providers Care Braille And Talking Books Clerk Name Role Phone Les Mason MD Primary Care Provider [phone] Encounter Details Date Type Department Care Team (Late st Contact Info) Description 01/20/2025 Lab Requisition [facility] - DermPath Lab [address] [facility], [place] [address] Sheryl eHrnandez MD [address] [facility] [address] [place] [address] Social History Tobacco Use Types Packs/Day Years Used Date Smoking Tobacco: Never Assessed Sex and Gender Information Value Date Recorded Sex Assigned at Not on file Legal Sex Male 5:51 AM PICKLER HELPER Gender Identity Not on file Sexual Orientation Not on file documented as of this encounter Plan of Treatment Not on file documented as of this encounter Procedures Procedure Name Priority Date/Time Associated Diagnosis Comments DERMATOPATHOLOGY Routine 01/19/2025 12:0 0 AM CDT documented in this encounter Results * DERMATOPATHOLOGY (01/19/2025 12:00 AM CDT) Case Report Dermatopathology Report Case: [id number] Authorizing Provider: Sheryl Hernandez MD Collected: 01/19/2025 12:00 AM Ordering Location: [facility] - Received: 01/20/2025 02:20 PM DermPath Lab Pathologist: Diana Glasgow MD Specimen: Skin, right nose tip 1:54 PM CDT DERMATOPATHOLOGY LABORATORY Final Diagnosis Specimen A. 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 The specimen consists of a shave biopsy measuring 4x4x1 mm. Jar 0. 1:54 PM CDT DERMATOPATHOLOGY LABORATORY Microscopic Description Specimen A. SKIN, right nose tip: The epidermis is largely unremarkable. A mild perivascular and perifollicular inflammatory infiltrate composed predominantly of lymphocytes is noted in the upper and mid dermis. Demodex mites are seen within follicular infundibula. Dilated thin-walled superficial dermal blood vessels are observed. Solar elastosis is present. Additional deeper sections were obtained and reviewed. 1:54 PM CDT DERMATOPATHOLOGY LABORATORY Disclaimer An external and internal positive and negative controls are appropriate for the histochemical, immunohistochemical and immunofluorescence stain(s) in this case (if any), except where stated explicitly. The performance characteristics of the stain(s) cited in this report were developed and its performance characteristic determined by the Dermatopathology Laboratory at [facility], directed by Dr. Camron Frey. These tests need not be, and therefore are not, approved by the [place] Food and Drug Administration. The tests are used for clinical purposes. Billing Codes Specimen Charges Stain Charges 27673 1 1:54 PM CDT DERMATOPATHOLOGY LABORATORY Embedded Images 1:54 PM CDT DERMATOPATHOLOGY LABORATORY Pathology/Cytolog y TISSUE SPECIMEN FROM SKIN / Unknown 01/19/2025 01/20/2025 2:20 PM CDT us Sheryl Hernandez MD LAB - PATHOLOGY/CYTOLOGY OR DERABLES Final Result DERMATOPATHOLOGY LABORATORY [facility] - Department of Dermatology [facility] [address] [place] [address], [address] [phone] documented in this encounter Visit Diagnoses Not on filedocumented in this encounter Care Teams Braille And Talking Books Clerk Relationship Specialty Start Date End Date Les Mason MD [address] [place] [address] PCP - General Family Medicine 06/01/24 documented as of this encounter
--- OUTSIDE RECORDS SUMMARY | 2025-02-27 08:44 | XMS_ITS | Encounter Summary ---
Author Organization [facility] Address [address] [place] [address] Care Team Providers Care Tube Dispatcher Name Role Phone Les Mason MD Primary Care Provider [phone] Encounter Details Date Type Department Care Team (Latest Contact Info) Description 10/23/2004 Outpatient Historical [place] [address] [facility] [address] [place] [address] Anibal Quezada MD [address] [facility]. 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 [address] [place] [address] documented as of this encounter Visit Diagnoses Diagnosis Malignant neoplasm of head, face, and neck (CMS/HCC)- Primary Malignant neoplasm of head, face, and neck documented in this encounter Additional Health Concerns Infection Onset Date Last Indicated Resolved Time R/O C. diff 01/19/2021 01/19/2021 01/19/2021 8:28 PM CDT documented as of this encounter Care Teams Tube Dispatcher Relationship Specialty Start Date End Date Les Mason MD [address] [place] [address] PCP - General Family Practice 01/10/21 documented as of this encounter
--- OUTSIDE RECORDS SUMMARY | 2025-02-27 08:44 | XMS_ITS | Clinical Summary ---
Author Organization [facility] [facility] [employer] Address [address] [facility] [place] [address] Care Team Providers Care Body Worker Name Role Phone Les Mason MD Primary Care Provider [phone] Source Comments [facility] [employer],non-owned Affiliates and Associated Physician Practices is amultiple site organization consisting of ambulatory clinics and hospital sitesin [place], [place], [place] and [place]. This disclosure is being madepursuant to the Care Everywhere program and may not contain all information available regarding this patient. Last updated 18.[facility] [employer] Allergies No known active allergies Medications * Be aware that medications may not be up to date on this document. Alwaysverify current medications with the patient. 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 TRANSLATOR Gender Identity Not on file Sexual Orientation Not on file Last Filed Vital Signs Vital Sign Reading Time Taken Comments Blood Pressure 126/75 06/01/2024 7:41 AM CDT Pulse 98 06/01/2024 7:41 AM CDT Temperature 36.7 C (98.1 F) 06/01/2024 7:41 AM CDT Respiratory Rate 18 06/01/2024 7:41 AM CDT Oxygen Saturation - - Inhaled Oxygen Concentration - - Weight 68 kg (150 lb) 06/01/2024 7:41 AM CDT Height - - Body Mass Index - - Plan of Treatment Health Maintenance Due Date Last Done Comments COLOGUARD (AGES 45-75) - COLON CA SCREENING 1950 COLON MONITORING 1950 COLONOSCOPY - COLON CA SCREENING 1950 CT COLONOGRAPHY - COLON CA SCREENING 1950 Colorectal Cancer Screening 1950 FIT - COLON CA SCREENING 1950 FLEX SIG - COLON CA SCREENING 1950 LIPID TESTING 1950 HEPATITIS C SCREENING 05/23/1968 PNEUMOCOCCAL VACCINE 50+ (1 of 1 - PCV) 2000 ZOSTER VACCINE (1 of 2) 2000 COVID-19 VACCINE ( - season) 2024 08/17/2023, 08/07/2022, 03/21/2022, Additional history exists DEPRESSION SCREENING 10/22/2024 MEDICARE AWV CALENDAR YEAR 2024 Respiratory Syncytial Virus (RSV) Vaccine Pt: or over 60 yrs (1 - 1-dose 75+ series) 2025 INFLUENZA VACCINE (Season Ended) 2025 08/17/2023, 08/07/2022, 07/25/2021, Additional history exists DTAP/TDAP/TD VACCINES (2 - Td or Tdap) 06/01/2034 06/01/2024 HEPATITIS B VACCINE Aged Out No longe r eligible based on patient's age to complete this topic HIB VACCINE Aged Out No longer eligi ble based on patient's age to complete this topic HPV VACCINE Aged Out No longer eligi ble based on patient's age to complete this topic MENINGOCOCCAL (Group B) VACCINE SHARED DECISION-MAKING Aged Out No longer eligible based on patient's age to complete this topic MENINGOCOCCAL GROUPS A/C/Y/W VACCINE Aged Out No longer eligible based on patient's age to complete this topic Procedures Procedure Name Priority Date/Time Associated Diagnosis Comments DERMATOPATHOLOGY Routine 01/19/2025 12:0 0 AM CDT from Last 3 Months Results * DERMATOPATHOLOGY (01/19/2025 12:00 AM CDT) Case Report Dermatopathology Report Case: [id number] Authorizing Provider: Sheryl Hernandez MD Collected: 01/19/2025 12:00 AM Ordering Location: [facility] - Received: 01/20/2025 02:20 PM [...] characteristic determined by the Dermatopathology Laboratory at [facility], directed by Dr. Camron Frey. These tests need not be, and therefore are not, approved by the [place] Food and Drug Administration. The tests are used for clinical purposes. Billing Codes Specimen Charges Stain Charges 71584 1 1:54 PM CDT DERMATOPATHOLOGY LABORATORY Embedded Images 1:54 PM CDT DERMATOPATHOLOGY LABORATORY Pathology/Cytolog y TISSUE SPECIMEN FROM SKIN / Unknown 01/19/2025 01/20/2025 2:20 PM CDT Sheryl Hernandez MD LAB - PATHOLOGY/CYTOLOGY OR DERABLES Final Result DERMATOPATHOLOGY LABORATORY [facility] - Department of Dermatology [facility] [address] [facility], 3rd Floor [address] [phone] from Last 3 Months Insurance [facility] MANAGED MEDICARE ADV [facility] MANAGED MEDICARE ADV * Guarantor: DAVION VARGAS Account Type Relation to Patient Date of Phone Billing Address Personal/Family Spouse * Guarantor: DAVION GASPAR Account Type Relation to Patient Date of Phone Billing Address Personal/Family Spouse Care Teams Body Worker Relationship Specialty Start Date End Date Les Mason MD [address] [place] [address] PCP - General Family Medicine 06/01/24
--- OUTSIDE RECORDS SUMMARY | 2025-02-27 08:44 | XMS_ITS | Encounter Summary ---
Author Organization [facility] Address [address] [place] [address] Care Team Providers Care Wood Drilling Machine Operator Name Role Phone Les Mason MD Primary Care Provider [phone] Encounter Details Date Type Department Care Team (Latest Contact Info) Description 06/29/2004 Inpatient Historical HIS PATIENT IN A BED Anibal Quezada MD [address] [facility]. 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 Gender Identity Not on file Sexual Orientation Not on file documented as of this encounter Plan of Treatment Upcoming Encounters Date Type Department Care Team (Late st Contact Info) Description 03/13/2025 12:15 PM CDT Office Visit [facility] Oncology and Hematology - [place] [address] [facility] 200 [place] [address] Alex Maciel MD [address] [facility] [address] [place] [address] documented as of this encounter Visit Diagnoses Diagnosis 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 diff 01/19/2021 01/19/2021 01/19/2021 8:28 PM CDT documented as of this encounter Care Teams Wood Drilling Machine Operator Relationship Specialty Start Date End Date Les Mason MD [address] [place] [address] PCP - General Family Practice 01/10/21 documented as of this encounter
--- OUTSIDE RECORDS SUMMARY | 2025-02-27 08:44 | XMS_ITS | Encounter Summary ---
Author Organization [facility] Address [address] [place] [address] Care Team Providers Care Supervisor Varnish Name Role Phone Les Mason MD Primary Care Provider [phone] Encounter Details Date Type Department Care Team (Latest Contact Info) Description 11/17/2004 Outpatient Historical [facility] Anibal Quezada MD [address] [facility] [place]. 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 Gender Identity Not on file Sexual Orientation Not on file documented as of this encounter Plan of Treatment Upcoming Encounters Date Type Department Care Team (Late st Contact Info) Description 03/13/2025 12:15 PM CDT Office Visit [facility] Oncology and Hematology - [place] [address] [facility] [address] [place] [address] Alex Maciel MD [address] [facility] [address] [place] [address] documented as of this encounter Visit Diagnoses Diagnosis Follow-up examination, following other surgery- Primary documented in this encounter Additional Health Concerns Infection Onset Date Last Indicated Resolved Time R/O C. diff 01/19/2021 01/19/2021 01/19/2021 8:28 PM CDT documented as of this encounter Care Teams Supervisor Varnish Relationship Specialty Start Date End Date Les Mason MD [address] [place] [address] PCP - General Family Practice 01/10/21 documented as of this encounter
--- OUTSIDE RECORDS SUMMARY | 2025-02-27 08:44 | XMS_ITS | Encounter Summary ---
Author Organization [facility] Address [address] [place] [address] Care Team Providers Care Business Development Assistant Name Role Phone Les Mason MD Primary Care Provider Encounter Details Date Type Department Care Team (Latest Contact Info) Description 06/17/2004 Outpatient Historical [place] [address] [facility] [address] [place] [address] Anibal Quezada MD [address] [facility]. 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 Gender Identity Not on file Sexual Orientation Not on file documented as of this encounter Plan of Treatment Upcoming Encounters Date Type Department Care Team (Late st Contact Info) Description 03/13/2025 12:15 PM CDT Office Visit [facility] Oncology and Hematology - [place] [address] [email or web address] [address] [place] [address] Alex Maciel MD [address] [facility] [address] [place] [address] documented as of this encounter Visit Diagnoses Diagnosis Malignant neoplasm of head, face, and neck (CMS/HCC)- Primary Malignant neoplasm of head, face, and neck documented in this encounter Additional Health Concerns Infection Onset Date Last Indicated Resolved Time R/O C. diff 01/19/2021 01/19/2021 01/19/2021 8:28 PM CDT documented as of this encounter Care Teams Business Development Assistant Relationship Specialty Start Date End Date Les Mason MD [address] [place] [address] PCP - General Family Practice 01/10/21 documented as of this encounter
--- OUTSIDE RECORDS SUMMARY | 2025-02-27 08:44 | XMS_ITS | Encounter Summary ---
Author Organization [facility] Address [address] [place] [address] Care Team Providers Care Stem Cutter Name Role Phone Les Mason MD Primary Care Provider Encounter Details Date Type Department Care Team (Latest Contact Info) Description 06/20/2004 Outpatient Historical [facility] Anibal Quezada MD [address] [facility] [address] 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 Gender Identity Not on file Sexual Orientation Not on file documented as of this encounter Plan of Treatment Upcoming Encounters Date Type Department Care Team (Late st Contact Info) Description 03/13/2025 12:15 PM CDT Office Visit [facility] Oncology and Hematology - [place] [address] [facility] 200 [place] [address] Alex Maciel MD [address] [facility] [address] [place] [address] documented as of this encounter Visit Diagnoses Diagnosis 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 diff 01/19/2021 01/19/2021 01/19/2021 8:2 8 PM CDT documented as of this encounter Care Teams Stem Cutter Relationship Specialty Start Date End Date Les Mason MD [address] [place] [address] PCP - General Family Practice 01/10/21 documented as of this encounter
[2025-02-27 08:54] LABS: Basophils Absolute Auto 0.1 K/mm3 (0.0-0.1); Basophils Percent Auto 1.1 % (0.2-1.2); Eosinophils Absolute Auto 0.2 K/mm3 (0-0.3); Eosinophils Percent Auto 4.6 % (0-4.4); Hematocrit 31.2 % (42.0-52.0); Hemoglobin 10.4 g/dL (14.0-18.0); Immature Granulocyte Absolute 0.01 K/mm3 (0.00-0.031); Immature Granulocyte Percent A 0.2 % (0-0.5); Lymphocytes Absolute Auto 0.65 K/mm3 (0.9-3.2); Lymphocytes Percent Auto 14.9 % (18.3-44.2); Mean Corpuscular HGB Conc 33.3 g/dl (32-36); Mean Corpuscular Volume 93.1 fl (80-100); Mean Platelet Volume 8.6 fl (7.4-10.4); Monocytes Absolute Auto 0.5 K/mm3 (0.1-0.6); Neutrophils Absolute Auto 2.9 K/mm3 (1.3-6.7); Neutrophils Percent Auto 67.2 % (45.5-73.1); Platelet Count Result 238 k/mm3 (150-375); Red Blood Count 3.35 M/mm3 (4.6-6.20); Red Cell Distribution Width 14.6 % (11.5-14.5); White Blood Count 4.4 K/mm3 (4.5-10.0)
[2025-02-27 12:28] LABS: Iron 59 ug/dL (49-181)
[2025-02-27 12:37] LABS: Percent Iron Saturation 13 % (20-50)
[2025-02-27 13:47] LABS: Folic Acid 13.6 ng/mL (2.76->20)
== END 2025-02-27 08:40 | disposition home or self-care (01) ==
LOC: ANHLAB 08:40
PROVIDERS: PCP Family Medicine; Visit Provider Internal Medicine Hematology & Oncology
DX: D64.9 Anemia, unspecified (principal)
CPT/HCPCS: 36415; 82607; 82728; 82746; 83540; 83550; 85025

== ENCOUNTER 2025-03-05 08:45 | Outpatient (CLI) | payer MEDICARE, SELFPAY ==
--- NOTE | ~2025-03-05 | US_ITS ---
EXAMINATION:US venous doppler LE RT INDICATION:History of DVT TECHNIQUE: Multiple grayscale, color flow and Doppler images of the right lower extremity deep venous systems were obtained and reviewed. COMPARISON:Ultrasound dated 04/02/2024 FINDINGS: The common femoral, superficial femoral veins demonstrate normal respiratory variation, aug mentation and compressibility. There is partially occlusive DVT of the right popliteal vein, likely c hronic. Color flow is also seen within the posterior tibial, peroneal, greater saphenous and profunda veins. IMPRESSION: 1: Partially occlusive DVT right popliteal vein, likely chronic. Reviewed, dictated and finalized at location A.
--- OUTSIDE RECORDS SUMMARY | 2025-03-05 08:49 | XMS_ITS | Encounter Summary ---
Author Organization [facility] Address 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 Gender Identity Not on file Sexual Orientation Not on file documented as of this encounter Plan of Treatment Upcoming Encounters Date Type Department Care Team (Late st Contact Info) Description 03/13/2025 12:15 PM CDT Office Visit [facility] Oncology and Hematology [place] [address] [place] [address] [address] Alex Maciel MD [address] [facility] [address] [place] [address] documented as of this encounter Visit Diagnoses Diagnosis 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 diff 01/19/2021 01/19/2021 01/19/2021 8:28 PM CDT documented as of this encounter Care Teams Hotel Maid Relationship Specialty Start Date End Date Les Mason MD [address] [place] [address] PCP - General Family Practice 01/10/21 documented as of this encounter
--- OUTSIDE RECORDS SUMMARY | 2025-03-05 08:49 | XMS_ITS | Encounter Summary ---
Author Organization [facility] Address [address] [place] [address] Care Team Providers Care Outside Sales Manager Name Role Phone Les Mason MD Primary Care Provider [phone] Encounter Details Date Type Department Care Team (Late st Contact Info) Description 06/04/2006 Outpatient Historical [facility] Anibal Quezada MD [address] [facility]. 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 Gender Identity Not on file Sexual Orientation Not on file documented as of this encounter Plan of Treatment Upcoming Encounters Date Type Department Care Team (Late st Contact Info) Description 03/13/2025 12:15 PM CDT Office Visit [facility] Oncology and Hematology - [place] [address] [facility] 200 [place] [address] Alex Maciel MD [address] [facility] [address] [place] [address] documented as of this encounter Visit Diagnoses Not on filedocumented in this encounter Additional Health Concerns Infection Onset Date Last Indicated Resolved Time R/O C. diff 01/19/2021 01/19/2021 01/19/2021 8:28 PM CDT documented as of this encounter Care Teams Outside Sales Manager Relationship Specialty Start Date End Date Les Mason MD [address] [place] [address] PCP - General Family Practice 01/10/21 documented as of this encounter
--- OUTSIDE RECORDS SUMMARY | 2025-03-05 08:49 | XMS_ITS | Encounter Summary ---
Author Organization [facility] Address [address] [place] [address] Care Team Providers Care Doughnut Dough Mixer Name Role Phone Les Mason MD Primary Care Provider [phone] Encounter Details Date Type Department Care Team (Latest Contact Info) Description 05/03/2006 Outpatient Historical [facility] Anibal Quezada MD [address] [facility]. 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 Gender Identity Not on file Sexual Orientation Not on file documented as of this encounter Plan of Treatment Upcoming Encounters Date Type Department Care Team (Late st Contact Info) Description 03/13/2025 12:15 PM CDT Office Visit [facility] Oncology and Hematology - [place] [address] [facility] [address] [place] [address] Alex Maciel MD [address] [facility] [address] [place] [address] documented as of this encounter [...] documented as of this encounter Care Teams Doughnut Dough Mixer Relationship Specialty Start Date End Date Les Mason MD [address] [place] [address] PCP - General Family Practice 01/10/21 documented as of this encounter
--- OUTSIDE RECORDS SUMMARY | 2025-03-05 08:49 | XMS_ITS | Clinical Summary ---
Author Organization [facility] Address [address] [place] [address] Phone Care Team Providers Care Doctor Of Radiology Name Role Phone Les Mason MD Primary Care Provider [phone] Allergies No known active allergies Medications rosuvastatin [...] Encounters Date Type Department Care Team Description 03/02/2025 Orders Only [facility] Oncology and Hematology - [place] [address] [place] [address] Alex Maciel MD 02/27/2025 Orders Only [facility] Oncology and Hematology - [place] [address] [place] [address] Alex Maciel MD 12/10/2024 External Device Data STL ABSTRACTION Provider, Abstract 12/09/2024 External Device Data STL ABSTRACTION Provider, Abstract from Last 3 Months Family History Medical [...] on file Legal Sex Male 5:09 AM QUALITY NURSE Gender Identity Not on file Sexual Orientation Not on file Last Filed Vital Signs Vital Sign Reading Time Taken Comments Blood Pressure 119/70 12/05/2024 9:11 AM QUALITY NURSE Pulse 93 12/05/2024 9:11 AM QUALITY NURSE Temperature 36.4 C (97.6 F) 12/05/2024 9:11 AM QUALITY NURSE Respiratory Rate 18 12/05/2024 9:11 AM QUALITY NURSE Oxygen Saturation 94% 12/05/2024 9:11 AM QUALITY NURSE Inhaled Oxygen Concentration - - Weight 83 kg (183 lb) 12/05/2024 9:11 AM QUALITY NURSE Height 172.7 cm (5' 8 ) 03/17/2021 9:50 AM CDT Body Mass Index 27.83 03/17/2021 9:50 AM CDT Plan of Treatment Upcoming Encounters Date Type Department Care Team (Late st Contact Info) Description 03/13/2025 12:15 PM CDT Office Visit [facility] Oncology and Hematology - [place] [address] [place] [address] Alex Maciel MD [facility] [address] [place] [address] Health Maintenance Due Date Last Done Comments COLORECTAL SCREENING 1995 Colorectal Cancer Screening 1995 FIT-DNA Q 3 years 1995 FIT/FOBT Q 1 year 1995 Flex Sig/CT Colonography Q 5 years 1995 PNEUMOCOCCAL VACCINE 50+ YEARS (1 of 1 - PCV) 05/28/20 00 ZOSTER VACCINE (1 of 2) 2000 INFLUENZA VACCINE (#1) 2024 RSV VACCINE (60+ or ) (1 - 1-dose 75+ series) 2025 DTAP/TDAP/TD VACCINES (2 - Td or Tdap) 06/01/2034 Medical Devices Implanted Type Area Front End Web Designer Device Identifier Shelf Expiration Date Model / Serial / Lot Clip Ligating Horizon Sm Ti [id number] - Csc - [id number] Implanted:Qty: 1 on 01/17/2021 by Anibal Garcia MD at [facility] Clip Right: Leg TELE[employer] INC 01/05/2025 [id number] / / [id number] Clip Ligating Horizon Med Ti 073175 - Csc - [id number] Implanted:Qty: 1 on 01/17/2021 by Anibal Garcia MD at [facility] Clip Right: Leg TELEFLEX- WECK CLOSURE SYS 04/07/2025 [id number] / / [id number] Clip Micro [place] 6s [id number] - [id number] Implanted:Qty: 1 on 01/17/2021 by Anibal Garcia MD at [facility] Clip N/A: Face VITALITEC INTL [id number] 11/21/2023 [id number] 1 Clip Ligating Horizon Med Ti 201977 - Csc - [id number] Implanted:Qty: 1 on 01/17/2021 by Anibal Garcia MD at [facility] Clip Right: Leg TELEFLEX- WECK CLOSURE SYS 05/17/2025 [id number] / / [id number] Clip Micro [place] 6s [id number] - [id number] Implanted:Qty: 1 on 01/17/2021 by Anibal Garcia MD at [facility] Clip N/A: Face VITALITEC INTL [id number] 04/20/2024 [id number] 4 Clip Ligating Horizon Sm Ti 220389 - Csc - [id number] Implanted:Qty: 1 on 01/17/2021 by Anibal Garcia MD at [facility] Clip Right: Leg TELE[employer]LEX INC [id number] 06/11/2023 [id number] / / [id number] Spike Machine Feeder Microvasc Anastomotic 3.5mm [id number] - [id number] Implanted:Qty: 1 on 01/17/2021 by Anibal Garcia MD at [facility] Other N/A: Face SYNOVIS- MICRO [employer] ALLIANCE 12/09/2025 [id number] / / [id number] Plate Matrixmandible Sharon Recon 04.503.733 - Ssterilized Jan 06 Implanted:Qty: 1 on 01/17/2021 by Anibal Quezada MD at [facility] Plate Right: Mandible SYNTHES-STRATEC - MAXIFACIAL 04.503.7 33 / STERILIZ ED MAR / LOAD [address] Loc 2.0mm 04.503.618.01 - Ssterilized Jan 06 Implanted:Qty: 1 on 01/17/2021 by Anibal Quezada MD at [facility] Screw N/A: Mandible SYNTHES-STRATEC - MAXIFACIAL 04.503.6 18.01 / STERILIZ ED JAN 06 21 / LOAD [address] Loc 2.0mm 04.503.614.01 - Ssterilized Jan 06 Implanted:Qty: 2 on 01/17/2021 by Anibal Quezada MD at [facility] Screw N/A: Mandible SYNTHES-STRATEC - MAXIFACIAL 04.503.6 14.01 / STERILIZ ED JAN 06 / LOAD 212 Screw Sd Loc 2.0x8mm 04.503.548.01 - Ssterilized Jan 06 Implanted:Qty: 3 on 01/17/2021 by Anibal Quezada MD at [facility] Screw N/A: Mandible SYNTHES-STRATEC - MAXIFACIAL 04.503.5 48.01 / STERILIZ ED JAN 06 / LOAD [address] Loc 2.0mm 04.503.610.01 - Ssterilized Jan 06 Implanted:Qty: 1 on 01/17/2021 by Anibal Garcia MD at [facility] Screw N/A: Mandible SYNTHES-STRATEC - MAXIFACIAL 04.503.6 10.01 / STERILIZ ED JAN 06 / LOAD 212 Description:All Synthes faci al components are processed on requisition, [id number]. Screw Matrixmandible St Loc 2.0mm 04.503.612.01 - Ssterilized Jan 06 Implanted:Qty: 1 on 01/17/2021 by Anibal Garcia MD at [facility] Screw N/A: Mandible SYNTHES-STRATEC - MAXIFACIAL 04.503.6 12.01 / STERILIZ ED JAN 06 / LOAD [address] Loc 2.0mm 04.503.618.01 - Ssterilized Jan 06 Implanted:Qty: 1 on 01/17/2021 by Anibal Garcia MD at [facility] Screw N/A: Mandible SYNTHES-STRATEC - MAXIFACIAL 04.503.6 18.01 / STERILIZ ED JAN 06 / LOAD 212 Tube Trach Cuf Lopre Sz 8 8dct - [id number] Implanted:Qty: 1 on 01/17/2021 by Anibal Garcia MD at [facility] Trach N/A: Trachea MEDTRONIC - COVIDIEN 10/06/2025 8DCT / / [id number] Explanted Type Area Front End Web Designer Device Identifier Shelf Expiration Date Model / Serial / Lot Screw Sd Loc 2.0x8mm 04.503.548.01 - Ssterilized Jan 06 Implanted:Anibal Quezada MD (Quantity not on file) Explanted:Qty: 1 on 01/17/2021 by Anibal Quezada MD at [facility] Screw N/A: Mandible SYNTHES-STRATEC- MAXIFACIAL 04.503.54 8.01 / STERILIZE D MAR 18 21 / LOAD 212 Procedures Procedure Name Priority Date/Time Associated Diagnosis Comments CBC WITH AUTODIFFERENTIAL Routine 2024 1:30 PM CDT IRON LEVEL Routine 02/27/2025 9:46 AM CDT from Last 3 Months Results * CBC WITH AUTODIFFERENTIAL (02/27/2025 1:30 PM CDT) Blood Alex Maciel MD HEMATOLOGY ORDERABLES Final Res ult * IRON LEVEL (02/27/2025 9:46 AM CDT) Blood Alex Maciel MD CHEMISTRY ORDERABLES Final Resu lt from Last 3 Months Insurance Member Subscriber Plan / Payer (Ef fective for All Dates) Name:Angel Vargas Relation to Subscriber:Self Name:Angel Vargas Payer ID:Not on file Group ID:[id number] Type:RX Medicare Part D Address: [address] [facility] [id number] Advance Directives For more information, please contact: [phone] Documents on File Type Date Recorded Patient Multiple Slide Operator Expl anation Advance Directive Living Will 01/24/2021 12:02 PM Advance Directive Living Will Advance Directive POA 01/24/2021 12:00 PM A dvance Directive POA * Full Code (Latest Code Status on File) Date Activated Date Inactivated Comments 01/17/2021 5:02 PM 01/25/2021 6:46 PM * Full Code Date Activated Date Inactivated Comments 01/17/2021 5:46 AM 01/17/2021 5:02 PM Care Teams Doctor Of Radiology Relationship Specialty Start Date End Date Les Mason MD [address] [place] [address] PCP - General Family Practice 01/10/21
--- OUTSIDE RECORDS SUMMARY | 2025-03-05 08:49 | XMS_ITS | Encounter Summary ---
Author Organization [facility] Address [address] [place] [address] Care Team Providers Care Psychiatric Aide Instructor Name Role Phone Les Mason MD Primary Care Provider [phone] Encounter Details Date Type Department Care Team (Latest Contact Info) Description 05/11/2005 Outpatient Historical [place] [address] [facility] [address] [place] [address] Anibal Quezada MD [address] [facility]. 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 Gender Identity Not on file Sexual Orientation Not on file documented as of this encounter Plan of Treatment Upcoming Encounters Date Type Department Care Team (Late st Contact Info) Description 03/13/2025 12:15 PM CDT Office Visit [facility] Oncology and Hematology - [place] [address] [facility] [address] [place] [address] Alex Maciel MD [address] [facility] [address] [place] [address] documented as of this encounter [...] documented as of this encounter Care Teams Psychiatric Aide Instructor Relationship Specialty Start Date End Date Les Mason MD [address] [place] [address] PCP - General Family Practice 01/10/21 documented as of this encounter
--- OUTSIDE RECORDS SUMMARY | 2025-03-05 08:49 | XMS_ITS | Encounter Summary ---
Author Organization [facility] Address [address] [place] [address] Care Team Providers Care Rescue Boat Operator Name Role Phone Les Mason MD Primary Care Provider [phone] Encounter Details Date Type Department Care Team (Latest Contact Info) Description 04/05/2006 Outpatient Historical [place] [address] [facility] [address] [place] [address] Anibal Quezada MD [address] [facility]. 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 Gender Identity Not on file Sexual Orientation Not on file documented as of this encounter Plan of Treatment Upcoming Encounters Date Type Department Care Team (Late st Contact Info) Description 03/13/2025 12:15 PM CDT Office Visit [facility] Oncology and Hematology - [place] [address] [facility] [address] [place] [address] Alex Maciel MD [address] [facility] [address] [place] [address] documented as of this encounter Visit Diagnoses Diagnosis 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 diff 01/19/2021 01/19/2021 01/19/2021 8:28 PM CDT documented as of this encounter Care Teams Rescue Boat Operator Relationship Specialty Start Date End Date Les Mason MD [address] [place] [address] PCP - General Family Practice 01/10/21 documented as of this encounter
--- OUTSIDE RECORDS SUMMARY | 2025-03-05 08:49 | XMS_ITS | Encounter Summary ---
Author Organization [facility] Address [address] [place] [address] Care Team Providers Care Java Jsf Developer Name Role Phone Les Mason MD Primary Care Provider [phone] Encounter Details Date Type Department Care Team (Latest Contact Info) Description 06/17/2004 Outpatient Historical [place] [address] [facility] [address] [place] [address] Anibal Quezada MD [address] [facility]. 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 Gender Identity Not on file Sexual Orientation Not on file documented as of this encounter Plan of Treatment Upcoming Encounters Date Type Department Care Team (Late st Contact Info) Description 03/13/2025 12:15 PM CDT Office Visit [facility] Oncology and Hematology - [place] [address] [facility] 200 [place] [address] Alex Maciel MD [address] [facility] [address] [place] [address] documented as of this encounter Visit Diagnoses Diagnosis Malignant neoplasm of head, face, and neck (CMS/HCC)- Primary Malignant neoplasm of head, face, and neck documented in this encounter Additional Health Concerns Infection Onset Date Last Indicated Resolved Time R/O C. diff 01/19/2021 01/19/2021 01/19/2021 8:28 PM CDT documented as of this encounter Care Teams Java Jsf Developer Relationship Specialty Start Date End Date Les Mason MD [address] [place] [address] PCP - General Family Practice 01/10/21 documented as of this encounter
--- OUTSIDE RECORDS SUMMARY | 2025-03-05 08:49 | XMS_ITS | Encounter Summary ---
Author Organization [facility] Address [address] [place] [address] Care Team Providers Care Database Manager Name Role Phone Les Mason MD Primary Care Provider [phone] Encounter Details Date Type Department Care Team (Latest Contact Info) Description 09/07/2005 Outpatient Historical [place] [address] [facility] [address] [place] [address] Anibal Quezada MD [address] [facility]. 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 Gender Identity Not on file Sexual Orientation Not on file documented as of this encounter Plan of Treatment Upcoming Encounters Date Type Department Care Team (Late st Contact Info) Description 03/13/2025 12:15 PM CDT Office Visit [facility] Oncology and Hematology - [place] [address] [facility] 200 [place] [address] Alex Maciel MD 2[address] [facility] [address] [place] [address] documented as of this encounter Visit Diagnoses Diagnosis 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 diff 01/19/2021 01/19/2021 01/19/2021 8:28 PM CDT documented as of this encounter Care Teams Database Manager Relationship Specialty Start Date End Date Les Mason MD [address] [place] [address] PCP - General Family Practice 01/10/21 documented as of this encounter
--- OUTSIDE RECORDS SUMMARY | 2025-03-05 08:49 | XMS_ITS | Encounter Summary ---
Author Organization [facility] Address [address] [place] [address] Care Team Providers Care Bedspread Folder Name Role Phone Les Mason MD Primary Care Provider [phone] Encounter Details Date Type Department Care Team (Latest Contact Info) Description 08/20/2004 Outpatient Historical [place] [address] [facility] [address] [place] [address] Anibal Quezada MD [address] [facility] [address] [place] [address] MALIG JESSICA HEAD/FACE/NECK (CMS/HCC) (Primary Dx) Social History Tobacco Use Types Packs/Day Years Used Date Smoking Tobacco: Never Assessed Sex and Gender Information Value Date Recorded Sex Assigned at Not on file Legal Sex Male 5:09 AM PUBLIC INFORMATION RELATIONS MANAGER Gender Identity Not on file Sexual Orientation Not on file documented as of this encounter Plan of Treatment Upcoming Encounters Date Type Department Care Team (Late st Contact Info) Description 03/13/2025 12:15 PM CDT Office Visit [facility] Oncology and Hematology - [place] 2[address] [facility] 200 [place] [address] Alex Maciel MD 2227 [facility] [address] [place] [address] documented as of this encounter Visit Diagnoses Diagnosis Malignant neoplasm of head, face, and neck (CMS/HCC)- Primary Malignant neoplasm of head, face, and neck documented in this encounter Additional Health Concerns Infection Onset Date Last Indicated Resolved Time R/O C. diff 01/19/2021 01/19/2021 01/19/2021 8:28 PM CDT documented as of this encounter Care Teams Bedspread Folder Relationship Specialty Start Date End Date Les Mason MD [address] [place] [address] PCP - General Family Practice 01/10/21 documented as of this encounter
--- OUTSIDE RECORDS SUMMARY | 2025-03-05 08:49 | XMS_ITS | Encounter Summary ---
Author Organization [facility] Address [address] [place] [address] Care Team Providers Care Manager Golf Name Role Phone Les Mason MD Primary Care Provider [phone] Encounter Details Date Type Department Care Team (Latest Contact Info) Description 06/20/[address] 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 Gender Identity Not on file Sexual Orientation Not on file documented as of this encounter Plan of Treatment Upcoming Encounters Date Type Department Care Team (Late st Contact Info) Description 03/13/2025 12:15 PM CDT Office Visit [facility] Oncology and Hematology [place] [address] [place] [address] [facility] 200 [place] [address] Alex Maciel MD [address] [facility] [address] [place] [address] documented as of this encounter Visit Diagnoses Diagnosis Malignant neoplasm of head, face, and neck (CMS/HCC)- Primary Malignant neoplasm of head, face, and neck documented in this encounter Additional Health Concerns Infection Onset Date Last Indicated Resolved Time R/O C. diff 01/19/2021 01/19/2021 01/19/2021 8:28 PM CDT documented as of this encounter Care Teams Manager Golf Relationship Specialty Start Date End Date Les Mason MD [address] [place] [address] PCP - General Family Practice 01/10/21 documented as of this encounter
--- OUTSIDE RECORDS SUMMARY | 2025-03-05 08:49 | XMS_ITS ---
Author Organization [facility] Address [address] [facility] [place] [address] Phone Care Team Providers Care Industrial Safety And Health Manager Name Role Phone Les Mason MD Primary Care Provider [phone] Active Problems Problem Noted Date Diagnosed Date [...]
--- OUTSIDE RECORDS SUMMARY | 2025-03-05 08:49 | XMS_ITS | Encounter Summary ---
Author Organization [facility] Address 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) Social History Tobacco Use Types Packs/Day Years Used Date Smoking Tobacco: Never Assessed Sex and Gender Information Value Date Recorded Sex Assigned at Not on file 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 Male 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 Gender Identity Not on file Sexual Orientation Not on file documented as of this encounter Plan of Treatment Upcoming Encounters Date Type Department Care Team (Late st Contact Info) Description 03/13/2025 12:15 PM CDT Office Visit [facility] Oncology and Hematology - [place] [address] [facility] 200 [place] [address] Alex Maciel MD 2[address] [facility] [address] [place] [address] documented as of this [...] documented as of this encounter Care Teams Senior Software Engineering Manager Relationship Specialty Start Date End Date Les Mason MD [address] [place] [address] PCP - General Family Practice 01/10/21 documented as of this encounter
--- OUTSIDE RECORDS SUMMARY | 2025-03-05 08:49 | XMS_ITS | Encounter Summary ---
Author Organization [facility] Address [address] [place] [address] Care Team Providers Care Is Project Manager Name Role Phone Les Mason MD Primary Care Provider [phone] Encounter Details Date Type Department Care Team (Latest Contact Info) Description 11/17/[address] [facility] Anibal Quezada MD [address] [facility] [address]. 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 Gender Identity Not on file Sexual Orientation Not on file documented as of this encounter Plan of Treatment Upcoming Encounters Date Type Department Care Team (Late st Contact Info) Description 03/13/2025 12:15 PM CDT Office Visit [facility] Oncology and Hematology - [place] 2[address] [facility] 200 [place] [address] Alex Maciel MD 2[address] [facility] [address] [place] [address] documented as of this encounter Visit Diagnoses Diagnosis Follow-up examination, following other surgery- Primary documented in this encounter Additional Health Concerns Infection Onset Date Last Indicated Resolved Time R/O C. diff 01/19/2021 01/19/2021 01/19/2021 8:28 PM CDT documented as of this encounter Care Teams Is Project Manager Relationship Specialty Start Date End Date Les Mason MD [address] [place] [address] PCP - General Family Practice 01/10/21 documented as of this encounter
--- OUTSIDE RECORDS SUMMARY | 2025-03-05 08:49 | XMS_ITS | Encounter Summary ---
Author Organization [facility] Address [address] [place] [address] Care Team Providers Care Consumer Loan Officer Name Role Phone Les Mason MD Primary Care Provider [phone] Encounter Details Date Type Department Care Team (Latest Contact Info) Description 04/03/2006 Outpatient Historical [facility] Anibal Quezada MD [address] [facility] [address] 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 Gender Identity Not on file Sexual Orientation Not on file documented as of this encounter Plan of Treatment Upcoming Encounters Date Type Department Care Team (Late st Contact Info) Description 03/13/2025 12:15 PM CDT Office Visit [facility] Oncology and Hematology - [place] 2[address] [facility] 200 [place] [address] Alex Maciel MD [address] [facility] [address] [place] [address] documented as of this encounter Visit Diagnoses Diagnosis Follow-up examination, following other surgery- Primary documented in this encounter Additional Health Concerns Infection Onset Date Last Indicated Resolved Time R/O C. diff 01/19/2021 01/19/2021 01/19/2021 8:28 PM CDT documented as of this encounter Care Teams Consumer Loan Officer Relationship Specialty Start Date End Date Les Mason MD [address] [place] [address] PCP - General Family Practice 01/10/21 documented as of this encounter
--- OUTSIDE RECORDS SUMMARY | 2025-03-05 08:49 | XMS_ITS | Encounter Summary ---
Author Organization [facility] Address [address] [place] [address] Care Team Providers Care In Flight Crew Member Name Role Phone Les Mason MD Primary Care Provider [phone] Encounter Details Date Type Department Care Team (Late Contact Info) Description 03/02/2025 Orders Only [facility] Oncology and Hematology - [place] [address] [place] [address] Alex Maciel MD [facility] [employer] [address] [place] [address] Social History Tobacco Use Types Packs/Day Years Used Date Smoking Tobacco: Never Smokeless Tobacco: Never Alcohol Use Standard Drinks/Week Comments Yes 3 (1 standard drink = 0.6 oz pur e alcohol) Sex and Gender Information Value Date Recorded Sex Assigned at Not on file 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 Gender Identity Not on file Sexual Orientation Not on file documented as of this encounter Plan of Treatment Upcoming Encounters Date Type Department Care Team (Late st Contact Info) Description 03/13/2025 12:15 PM CDT Office Visit [facility] Oncology and Hematology - [place] [address] [place] [address] Alex Maciel MD [facility] [employer] [address] [place] [address] documented as of this encounter Procedures Procedure Name Priority Date/Time Associated Diagnosis Comments IRON LEVEL Routine 02/27/2025 9:46 AM CDT documented in this encounter Results * IRON LEVEL (02/27/2025 9:46 AM CDT) Blood us Alex Maciel MD CHEMISTRY ORDERABLES Final Resu lt documented in this encounter Visit Diagnoses Not on filedocumented in this encounter Care Teams In Flight Crew Member Relationship Specialty Start Date End Date Les Mason MD [address] [place] [address] PCP - General Family Practice 01/10/21 documented as of this encounter
--- OUTSIDE RECORDS SUMMARY | 2025-03-05 08:49 | XMS_ITS | Encounter Summary ---
Author Organization [facility] Address [address] [place] [address] Care Team Providers Care Mold Maker Apprentice Name Role Phone Les Mason MD Primary Care Provider [phone] Encounter Details Date Type Department Care Team (Latest Contact Info) Description 09/21/2004 Outpatient Historical [place] [address] [facility] [address] [place] [address] Anibal Quezada MD [address] [facility]. 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 Gender Identity Not on file Sexual Orientation Not on file documented as of this encounter Plan of Treatment Upcoming Encounters Date Type Department Care Team (Late st Contact Info) Description 03/13/2025 12:15 PM CDT Office Visit [facility] Oncology and Hematology - [place] 2[address] [facility] 200 [place] [address] Alex Maciel MD [address] [facility] [address] [place] [address] documented as of this encounter Visit Diagnoses Diagnosis Malignant neoplasm of head, face, and neck (CMS/HCC)- Primary Malignant neoplasm of head, face, and neck documented in this encounter Additional Health Concerns Infection Onset Date Last Indicated Resolved Time R/O C. diff 01/19/2021 01/19/2021 01/19/2021 8:28 PM CDT documented as of this encounter Care Teams Mold Maker Apprentice Relationship Specialty Start Date End Date Les Mason MD [address] [place] [address] PCP - General Family Practice 01/10/21 documented as of this encounter
--- OUTSIDE RECORDS SUMMARY | 2025-03-05 08:49 | XMS_ITS | Encounter Summary ---
Author Organization [facility] Address [address] [place] [address] Care Team Providers Care Nursing Education Consultant Name Role Phone Les Mason MD Primary Care Provider [phone] Encounter Details Date Type Department Care Team (Latest Contact Info) Description 04/27/2005 Outpatient Historical [facility] Anibal Quezada MD [address] [facility] [address] 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 Gender Identity Not on file Sexual Orientation Not on file documented as of this encounter Plan of Treatment Upcoming Encounters Date Type Department Care Team (Late st Contact Info) Description 03/13/2025 12:15 PM CDT Office Visit [facility] Oncology and Hematology - [place] 2[address] [facility] 200 [place] [address] Alex Maciel MD 2[address] [facility] [address] [place] [address] documented as of this encounter Visit Diagnoses Diagnosis Malignant neoplasm of tongue, 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 diff 01/19/2021 01/19/2021 01/19/2021 8:28 PM CDT documented as of this encounter Care Teams Nursing Education Consultant Relationship Specialty Start Date End Date Les Mason MD [address] [place] [address] PCP - General Family Practice 01/10/21 documented as of this encounter
--- OUTSIDE RECORDS SUMMARY | 2025-03-05 08:49 | XMS_ITS | Encounter Summary ---
Author Organization [facility] Address [address] [place] [address] Care Team Providers Care Match Up Person Name Role Phone Les Mason MD Primary Care Provider [phone] Encounter Details Date Type Department Care Team (Late Contact Info) Description 11/24/2004 Outpatient Historical [place] [address] [facility] 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 Gender Identity Not on file Sexual Orientation Not on file documented as of this encounter Plan of Treatment Upcoming Encounters Date Type Department Care Team (Late st Contact Info) Description 03/13/2025 12:15 PM CDT Office Visit [facility] Oncology and Hematology - [place] 2227 [facility] 200 [place] [address] Alex Maciel MD [address] [facility] [address] [place] [address] documented as of this encounter Visit Diagnoses Not on filedocumented in this encounter Additional Health Concerns Infection Onset Date Last Indicated Resolved Time R/O C. diff 01/19/2021 01/19/2021 01/19/2021 8:28 PM CDT documented as of this encounter Care Teams Match Up Person Relationship Specialty Start Date End Date Les Mason MD [address] [place] [address] PCP - General Family Practice 01/10/21 documented as of this encounter
--- OUTSIDE RECORDS SUMMARY | 2025-03-05 08:49 | XMS_ITS | Encounter Summary ---
Author Organization [facility] Address [address] [place] [address] Care Team Providers Care Sourcing Specialist Name Role Phone Les Mason MD Primary Care Provider [phone] Encounter Details Date Type Department Care Team (Latest Contact Info) Description 10/23/2004 Outpatient Historical [place] [address] [facility] [address] [place] [address] Anibal Quezada MD [address] [facility] 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 Gender Identity Not on file Sexual Orientation Not on file documented as of this encounter Plan of Treatment Upcoming Encounters Date Type Department Care Team (Late st Contact Info) Description 03/13/2025 12:15 PM CDT Office Visit [facility] Oncology and Hematology - [place] [address] [facility] 200 [place] [address] Alex Maciel MD 2[address] [facility] [address] [place] [address] documented as of this encounter Visit Diagnoses Diagnosis Malignant neoplasm of head, face, and neck (CMS/HCC)- Primary Malignant neoplasm of head, face, and neck documented in this encounter Additional Health Concerns Infection Onset Date Last Indicated Resolved Time R/O C. diff 01/19/2021 01/19/2021 01/19/2021 8:28 PM CDT documented as of this encounter Care Teams Sourcing Specialist Relationship Specialty Start Date End Date Les Mason MD [address] [place] [address] PCP - General Family Practice 01/10/21 documented as of this encounter
--- OUTSIDE RECORDS SUMMARY | 2025-03-05 08:49 | XMS_ITS | Encounter Summary ---
Author Organization [facility] Address [address] [place] [address] Care Team Providers Care Academic Affairs Dean Name Role Phone Les Mason MD Primary Care Provider [phone] Encounter Details Date Type Department Care Team (Late st Contact Info) Description 01/20/2025 Lab Requisition [facility] - DermPath Lab [address] [facility], [place] [address] Sheryl Hernandez MD [address] [facility] [address] [place] [address] Social History Tobacco Use Types Packs/Day Years Used Date Smoking Tobacco: Never Assessed Sex and Gender Information Value Date Recorded Sex Assigned at Not on file 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 Male 5:51 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 Gender Identity Not on file Sexual Orientation Not on file documented as of this encounter Plan of Treatment Not on file documented as of this encounter Procedures Procedure Name Priority Date/Time Associated Diagnosis Comments DERMATOPATHOLOGY Routine 01/19/2025 12:0 0 AM CDT documented in this encounter Results * DERMATOPATHOLOGY (01/19/2025 12:00 AM CDT) Case Report Dermatopathology Report Case: [id number] Authorizing Provider: Sheryl Hernandez MD Collected: 01/19/2025 12:00 AM Ordering Location: [facility] - Received: 01/20/2025 02:20 [...] characteristic determined by the Dermatopathology Laboratory at [facility], directed by Dr. Camron Frey. These tests need not be, and therefore are not, approved by the [place] Food and Drug Administration. The tests are used for clinical purposes. Billing Codes Specimen Charges Stain Charges 38357 1 1:54 PM CDT DERMATOPATHOLOGY LABORATORY Embedded Images 1:54 PM CDT DERMATOPATHOLOGY LABORATORY Pathology/Cytolog y TISSUE SPECIMEN FROM SKIN / Unknown 01/19/2025 01/20/2025 2:20 PM CDT us Sheryl Hernandez MD LAB - PATHOLOGY/CYTOLOGY OR DERABLES Final Result DERMATOPATHOLOGY LABORATORY [facility] - Department of Dermatology [facility] [address] [place] [address], [address] [phone] documented in this encounter Visit Diagnoses Not on filedocumented in this encounter Care Teams Academic Affairs Dean Relationship Specialty Start Date End Date Les Mason MD [address] [place] [address] PCP - General Family Medicine 06/01/24 documented as of this encounter
--- OUTSIDE RECORDS SUMMARY | 2025-03-05 08:49 | XMS_ITS | Clinical Summary ---
Author Organization [facility] Address [address] [place] [address] Care Team Providers Care Music Producer Name Role Phone Les Mason MD Primary Care Provider [phone] Source Comments [facility],non-owned Affiliates and Associated Physician Practices is amultiple site organization consisting of ambulatory clinics and hospital sitesin [place], [place], [place] and [place]. This disclosure is being madepursuant to the Care Everywhere program and may not contain all information available regarding this patient. Last updated 18.[facility] Allergies No known active allergies Medications * Be aware that medications may not be up to date on this document. Alwaysverify current medications with the patient. 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 Camron Frey. These tests need not be, and therefore are not, approved by the [place] Food and Drug Administration. The tests are used for clinical purposes. Billing Codes Specimen Charges Stain Charges 56978 1 1:54 PM CDT DERMATOPATHOLOGY LABORATORY Embedded Images 1:54 PM CDT DERMATOPATHOLOGY LABORATORY Pathology/Cytolog y TISSUE SPECIMEN FROM SKIN / Unknown 01/19/2025 01/20/2025 2:20 PM CDT Sheryl Hernandez MD LAB - PATHOLOGY/CYTOLOGY OR DERABLES Final Result DERMATOPATHOLOGY LABORATORY [facility] - Department of Dermatology [facility] [address] [facility], 3rd Floor [address] [phone] from Last 3 Months Insurance [facility] MANAGED MEDICARE ADV [facility] MANAGED MEDICARE ADV * Guarantor: DAVION VARGAS Account Type Relation to Patient Date of Phone Billing Address Personal/Family Spouse * Guarantor: DAVION GASPAR Account Type Relation to Patient Date of Phone Billing Address Personal/Family Spouse Care Teams Music Producer Relationship Specialty Start Date End Date Les Mason MD [address] [place] [address] PCP - General Family Medicine 06/01/24
--- OUTSIDE RECORDS SUMMARY | 2025-03-05 08:49 | XMS_ITS | Encounter Summary ---
Author Organization [facility] Address [address] [place] [address] Care Team Providers Care Telehealth Case Manager Name Role Phone Les Mason MD Primary Care Provider [phone] Encounter Details Date Type Department Care Team (Latest Contact Info) Description 11/20/2006 Outpatient Historical [facility] [place] [address] [facility] [address] [place] [address] Anibal Quezada MD [address] [facility]. 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 [address] [place] [address] Alex Maciel MD [address] [facility] [address] [place] [address] documented as of this encounter Visit Diagnoses Diagnosis Radiotherapy follow-up examination- Primary documented in this encounter Additional Health Concerns Infection Onset Date Last Indicated Resolved Time R/O C. diff 01/19/2021 01/19/2021 01/19/2021 8:28 PM CDT documented as of this encounter Care Teams Telehealth Case Manager Relationship Specialty Start Date End Date Les Mason MD [address] [place] [address] PCP - General Family Practice 01/10/21 documented as of this encounter
--- OUTSIDE RECORDS SUMMARY | 2025-03-05 08:49 | XMS_ITS | Encounter Summary ---
Author Organization [facility] Address [address] [place] [address] Care Team Providers Care Director Of Online Education Name Role Phone Les Mason MD Primary Care Provider [phone] Encounter Details Date Type Department Care Team (Latest Contact Info) Description 02/02/2009 Outpatient Historical [facility] Tootie Luna MD [address] [facility] [address] 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 Gender Identity Not on file Sexual Orientation Not on file documented as of this encounter Plan of Treatment Upcoming Encounters Date Type Department Care Team (Late st Contact Info) Description 03/13/2025 12:15 PM CDT Office Visit [facility] Oncology and Hematology - [place] [address] [facility] [address] [place] [address] Alex Maciel MD [address] [facility] [address] [place] [address] documented as of this encounter Procedures Procedure Name Priority Date/Time Associated Diagnosis Comments XR CHEST PA AND LATERAL 2 VW Routine 02/02/2009 9:25 AM CDT documented in this encounter Results * XR CHEST PA AND LATERAL (02/02/2009 9:25 AM CDT) Anatomical Region Laterality Modality Chest Other 02/02/2009 9:25 AM CDT Narrative 02/02/2009 12:42 PM CDT [address] [address] Admit Date: 02/02/2009 DAVION VARGAS Sex: M Admit Prov: TOOTIE LUNA Date: 1950 Primary Care Prov: JESICA GRAMAJO CMRN: [id number] [facility] [address] [place] [address] IMAGING SERVICES Ordering Prov: N/A Accession Number: [id number] Interpretation PA AND LATERAL CHEST X-RAY. 02/02/2009 [...] Procedure Note Lona Souza MD - 02/02/[address] [place] [address] Admit Date: 02/02/2009 DAVION VARGAS Sex: M Admit Prov: TOOTIE LUNA Date: 1950 Primary Care Prov: JESICA GRAMAJO CMRN: [id number] [facility] [address] [place] [address] IMAGING SERVICES Ordering Prov: N/A Interpretation PA [...] documented as of this encounter Care Teams Director Of Online Education Relationship Specialty Start Date End Date Les Mason MD [address] [place] [address] PCP - General Family Practice 01/10/21 documented as of this encounter
--- OUTSIDE RECORDS SUMMARY | 2025-03-05 08:49 | XMS_ITS | Encounter Summary ---
Author Organization [facility] Address [address] [place] [address] Care Team Providers Care Spray Drier Name Role Phone Les Mason MD Primary Care Provider Encounter Details Date Type Department Care Team (Latest Contact Info) Description 01/26/2005 Outpatient Historical [place] [address] [facility] [address] [place] [address] Anibal Quezada MD [address] [facility]. 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 Gender Identity Not on file Sexual Orientation Not on file documented as of this encounter Plan of Treatment Upcoming Encounters Date Type Department Care Team (Late st Contact Info) Description 03/13/2025 12:15 PM CDT Office Visit [facility] Oncology and Hematology - [place] [address] [facility] [address] [place] [address] Alex Maciel MD [address] [facility] [address] [place] [address] documented as of this encounter Visit Diagnoses Diagnosis Malignant neoplasm of head, face, and neck (CMS/HCC)- Primary Malignant neoplasm of head, face, and neck documented in this encounter Additional Health Concerns Infection Onset Date Last Indicated Resolved Time R/O C. diff 01/19/2021 01/19/2021 01/19/2021 8:28 PM CDT documented as of this encounter Care Teams Spray Drier Relationship Specialty Start Date End Date Les Mason MD [address] [place] [address] PCP - General Family Practice 01/10/21 documented as of this encounter
--- OUTSIDE RECORDS SUMMARY | 2025-03-05 08:50 | XMS_ITS | Encounter Summary ---
Author Organization [facility] Address [address] [place] [address] Care Team Providers Care Advertising Agent Name Role Phone Les Mason MD Primary Care Provider [phone] Encounter Details Date Type Department Care Team (Late st Contact Info) Description 06/29/2004 Outpatient Historical [facility] Support [facility]. (Adt Cardiology[facility]) [address] 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 Gender Identity Not on file Sexual Orientation Not on file documented as of this encounter Plan of Treatment Upcoming Encounters Date Type Department Care Team (Late st Contact Info) Description 03/13/2025 12:15 PM CDT Office Visit [facility] Oncology and Hematology - [place] [address] [facility] [address] [place] [address] Alex Maciel MD [address] [facility] [address] [place] [address] documented as of this encounter Visit Diagnoses Not on filedocumented in this encounter Additional Health Concerns Infection Onset Date Last Indicated Resolved Time R/O C. diff 01/19/2021 01/19/2021 01/19/2021 8:28 PM CDT documented as of this encounter Care Teams Advertising Agent Relationship Specialty Start Date End Date Les Mason MD [address] [place] [address] PCP - General Family Practice 01/10/21 documented as of this encounter
--- OUTSIDE RECORDS SUMMARY | 2025-03-05 08:50 | XMS_ITS | Encounter Summary ---
Author Organization [facility] Address [address] [place] [address] Care Team Providers Care Sheet Rock Finisher Name Role Phone Les Mason MD Primary Care Provider [phone] Encounter Details Date Type Department Care Team (Latest Contact Info) Description 07/19/2004 Outpatient Historical [place] [address] [facility] [address] [place] [address] Anibal Quezada MD [address] [facility]. 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 Gender Identity Not on file Sexual Orientation Not on file documented as of this encounter Plan of Treatment Upcoming Encounters Date Type Department Care Team (Late st Contact Info) Description 03/13/2025 12:15 PM CDT Office Visit [facility] Oncology and Hematology - [place] [address] [facility] [address] [place] [address] Alex Maciel MD [address] [facility] [address] [place] [address] documented as of this encounter Visit Diagnoses Diagnosis Malignant neoplasm of head, face, and neck (CMS/HCC)- Primary Malignant neoplasm of head, face, and neck documented in this encounter Additional Health Concerns Infection Onset Date Last Indicated Resolved Time R/O C. diff 01/19/2021 01/19/2021 01/19/2021 8:28 PM CDT documented as of this encounter Care Teams Sheet Rock Finisher Relationship Specialty Start Date End Date Les Mason MD [address] [place] [address] PCP - General Family Practice 01/10/21 documented as of this encounter
--- OUTSIDE RECORDS SUMMARY | 2025-03-05 08:50 | XMS_ITS | Encounter Summary ---
Author Organization [facility] Address [address] [place] [address] Care Team Providers Care Facetor Name Role Phone Les Mason MD Primary Care Provider [phone] Encounter Details Date Type Department Care Team (Latest Contact Info) Description 06/20/2004 Outpatient Historical [facility] Anibal Quezada MD [address] [facility] [address] 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 Gender Identity Not on file Sexual Orientation Not on file documented as of this encounter Plan of Treatment Upcoming Encounters Date Type Department Care Team (Late st Contact Info) Description 03/13/2025 12:15 PM CDT Office Visit [facility] Oncology and Hematology - [place] [address] [facility] [address] [place] [address] Alex Maciel MD [address] [facility] [address] [place] [address] documented as of this encounter Visit Diagnoses Diagnosis 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 diff 01/19/2021 01/19/2021 01/19/2021 8:2 8 PM CDT documented as of this encounter Care Teams Facetor Relationship Specialty Start Date End Date Les Mason MD [address] [place] [address] PCP - General Family Practice 01/10/21 documented as of this encounter
--- OUTSIDE RECORDS SUMMARY | 2025-03-05 08:50 | XMS_ITS | Encounter Summary ---
Author Organization [facility] Address [address] [place] [address] Care Team Providers Care Driver License Agent Name Role Phone Les Mason MD Primary Care Provider Encounter Details Date Type Department Care Team (Latest Contact Info) Description 06/29/2004 Inpatient Historical [facility] PATIENT IN A BED Anibal Quezada MD [address] [facility]. 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 Gender Identity Not on file Sexual Orientation Not on file documented as of this encounter Plan of Treatment Upcoming Encounters Date Type Department Care Team (Late st Contact Info) Description 03/13/2025 12:15 PM CDT Office Visit [facility] Oncology and Hematology - [place] [address] [facility] [address] [place] [address] Alex Maciel MD [address] [facility] [address] [place] [address] documented as of this encounter Visit Diagnoses Diagnosis 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 diff 01/19/2021 01/19/2021 01/19/2021 8:28 PM CDT documented as of this encounter Care Teams Driver License Agent Relationship Specialty Start Date End Date eLs Mason MD [address] [place] [address] PCP - General Family Practice 01/10/21 documented as of this encounter
== END 2025-03-05 08:46 | disposition home or self-care (01) ==
PROVIDERS: PCP Family Medicine; Visit Provider Internal Medicine Hematology & Oncology
DX: I82.431 Acute embolism and thrombosis of right popliteal vein (principal)
CPT/HCPCS: 93971

== ENCOUNTER 2025-03-24 10:18 | Outpatient (CLI) | payer MEDICARE, SELFPAY ==
--- NOTE | 2025-03-24 10:30 | ECG_ITS ---
Test Date: 2025-03-24 10:42:12 Measurements Intervals [place] Rate: 65 P: 61 [place]: 188 QRS: -22 QRSD: 102 T: 33 QT: 401 QTc: 418 Interpretive Statements SINUS RHYTHM DELAYED PRECORDIAL R/S TRANSITION BASELINE ARTIFACT- I, II, III, AVR, AVL, AVF, V1 BORDERLINE ECG No previous ECG available for comparison Electronically Signed On 03-24-2025 10:50:00 CDT by Justo Porter D.O.
--- OUTSIDE RECORDS SUMMARY | 2025-03-24 10:41 | XMS_ITS | Encounter Summary ---
Author Organization [facility] Address [address] [place] [address] Care Team Providers Care Patroller Name Role Phone Les Mason MD Primary Care Provider [phone] Encounter Details Date Type Department Care Team (Latest Contact Info) Description 04/27/2005 Outpatient Historical [facility] Anibal Quezada MD [address] 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 Gender Identity Not on file Sexual Orientation Not on file documented as of this encounter Plan of Treatment Upcoming Encounters Date Type Department Care Team (Late st Contact Info) Description 06/19/2025 11:00 AM CDT Office Visit [facility] Oncology and Hematology - [place] [address] [facility] [address] [place] [address] Alex Maciel MD [address] [facility] [address] [place] [address] documented as of this encounter Visit Diagnoses Diagnosis Malignant neoplasm of tongue, 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 diff 01/19/2021 01/19/2021 01/19/2021 8:28 PM CDT documented as of this encounter Care Teams Patroller Relationship Specialty Start Date End Date Les Mason MD [address] [place] [address] PCP - General Family Practice 01/10/21 documented as of this encounter
--- OUTSIDE RECORDS SUMMARY | 2025-03-24 10:41 | XMS_ITS | Encounter Summary ---
Author Organization [facility] Address [address] [place] [address] Care Team Providers Care Climbing Guide Name Role Phone Les Mason MD Primary Care Provider [phone] Encounter Details Date Type Department Care Team (Latest Contact Info) Description 05/21/2007 Outpatient Historical [facility] [place] [address] [facility] [address] [place] [address] Malignant Neoplasm of Base of Tongue (CMS/HCC) (Primary Dx) Social History Tobacco Use Types Packs/Day Years Used Date Smoking Tobacco: Never Assessed Sex and Gender Information Value Date Recorded Sex Assigned at Not on file 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 Oncology and Hematology - [place] [address] [place] [address] [address] Alex Maciel MD [address] [facility] [address] [place] [address] documented as of this encounter Visit Diagnoses Diagnosis 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 diff 01/19/2021 01/19/2021 01/19/2021 8:28 PM CDT documented as of this encounter Care Teams Climbing Guide Relationship Specialty Start Date End Date Les Mason MD [address] [place] [address] PCP - General Family Practice 01/10/21 documented as of this encounter
--- OUTSIDE RECORDS SUMMARY | 2025-03-24 10:41 | XMS_ITS | Encounter Summary ---
Author Organization [facility] Address [address] [place] [address] Care Team Providers Care Community Theater Actor Name Role Phone Les Mason MD Primary Care Provider [phone] Encounter Details Date Type Department Care Team (Latest Contact Info) Description 01/26/2005 Outpatient Historical [facility] [place] [address] [facility] [address] [place] [address] Anibal Quezada MD [address] [facility] 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 Gender Identity Not on file Sexual Orientation Not on file documented as of this encounter Plan of Treatment Upcoming Encounters Date Type Department Care Team (Late st Contact Info) Description 06/19/2025 11:00 AM CDT Office Visit [facility] Oncology and Hematology - [place] [address] [facility] [address] [place] [address] Alex Maciel MD [address] [facility] [address] [place] [address] documented as of this encounter Visit Diagnoses Diagnosis Malignant neoplasm of head, face, and neck (CMS/HCC)- Primary Malignant neoplasm of head, face, and neck documented in this encounter Additional Health Concerns Infection Onset Date Last Indicated Resolved Time R/O C. diff 01/19/2021 01/19/2021 01/19/2021 8:28 PM CDT documented as of this encounter Care Teams Community Theater Actor Relationship Specialty Start Date End Date Les Mason MD [address] [place] [address] PCP - General Family Practice 01/10/21 documented as of this encounter
--- OUTSIDE RECORDS SUMMARY | 2025-03-24 10:41 | XMS_ITS ---
Author Organization [facility] Address [address] [place] [address] Phone Care Team Providers Care Loftsman Name Role Phone Les Mason MD Primary Care Provider Active Problems Problem Noted Date Diagnosed Date [...]
--- OUTSIDE RECORDS SUMMARY | 2025-03-24 10:41 | XMS_ITS | Encounter Summary ---
Author Organization [facility] Address [address] [place] [address] Care Team Providers Care Cesspool Cleaner Name Role Phone Les Mason MD Primary Care Provider [phone] Encounter Details Date Type Department Care Team (Latest Contact Info) Description 10/23/2004 Outpatient Historical [place] [address] [facility] [address] [place] [address] Anibal Quezada MD [address] [facility] 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 [address] [place] [address] Alex Maciel MD [address] [facility] [address] [place] [address] documented as of this encounter Visit Diagnoses Diagnosis Malignant neoplasm of head, face, and neck (CMS/HCC)- Primary Malignant neoplasm of head, face, and neck documented in this encounter Additional Health Concerns Infection Onset Date Last Indicated Resolved Time R/O C. diff 01/19/2021 01/19/2021 01/19/2021 8:28 PM CDT documented as of this encounter Care Teams Cesspool Cleaner Relationship Specialty Start Date End Date Les Mason MD [address] [place] [address] PCP - General Family Practice 01/10/21 documented as of this encounter
--- OUTSIDE RECORDS SUMMARY | 2025-03-24 10:41 | XMS_ITS | Encounter Summary ---
Author Organization [facility] Address [address] [facility] [place] [address] Care Team Providers Care Assistant Golf Course Superintendent Name Role Phone Les Mason MD Primary Care Provider [phone] Encounter Details Date Type Department Care Team (Late st Contact Info) Description 01/20/2025 Lab Requisition [facility] - DermPath Lab [address] [facility] [place] [address] Sheryl Hernandez MD [address] [facility] [address] [place] [address] Social History Tobacco Use Types Packs/Day Years Used Date Smoking Tobacco: Never Assessed Sex and Gender Information Value Date Recorded Sex Assigned at Not on file Legal Sex Male 5:51 AM PULP MIXER Gender Identity Not on file Sexual Orientation Not on file documented as of this encounter Plan of Treatment Not on file documented as of this encounter Procedures Procedure Name Priority Date/Time Associated Diagnosis Comments DERMATOPATHOLOGY Routine 01/19/2025 12:0 0 AM CDT documented in this encounter Results * DERMATOPATHOLOGY (01/19/2025 12:00 AM CDT) Case Report Dermatopathology Report Case: [id number] Authorizing Provider: Sheryl Hernandez MD Collected: 01/19/2025 12:00 AM Ordering Location: [facility] - Received: 01/20/2025 02:20 PM DermPath Lab Pathologist: Diana [place] MD Specimen: Skin, right nose tip 1:54 PM CDT DERMATOPATHOLOGY LABORATORY Final Diagnosis Specimen A. 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 Camron Frey. These tests need not be, and therefore are not, approved by the [place] Food and Drug Administration. The tests are used for clinical purposes. Billing Codes Specimen Charges Stain Charges 74864 1 1:54 PM CDT DERMATOPATHOLOGY LABORATORY Embedded Images 1:54 PM CDT DERMATOPATHOLOGY LABORATORY Pathology/Cytolog y TISSUE SPECIMEN FROM SKIN / Unknown 01/19/2025 01/20/2025 2:20 PM CDT us Sheryl Hernandez MD LAB - PATHOLOGY/CYTOLOGY OR DERABLES Final Result DERMATOPATHOLOGY LABORATORY [facility] - Department of Dermatology [facility] [address] [place] [address], [address] [phone] documented in this encounter Visit Diagnoses Not on filedocumented in this encounter Care Teams Assistant Golf Course Superintendent Relationship Specialty Start Date End Date Les Mason MD [address] [place] [address] PCP - General Family Medicine 06/01/24 documented as of this encounter
--- OUTSIDE RECORDS SUMMARY | 2025-03-24 10:41 | XMS_ITS | Encounter Summary ---
Author Organization [facility] Address [address] [place] [address] Care Team Providers Care Adult Neuropsychologist Name Role Phone Les Mason MD Primary Care Provider [phone] Encounter Details Date Type Department Care Team (Latest Contact Info) Description 11/20/2006 Outpatient Historical [facility] [place] [address] [facility] [address] [place] [address] Anibal Quezada MD [address] [facility] [address] [facility] [address] [place] [address] Radiotherapy Follow-Up Examination (Primary Dx) Social History Tobacco Use Types Packs/Day Years Used Date Smoking Tobacco: Never Assessed Sex and Gender Information Value Date Recorded Sex Assigned at Not on file Legal Sex Male 5:09 AM OCC THERAPY ASST Gender Identity Not on file Sexual Orientation Not on file documented as of this encounter Plan of Treatment Upcoming Encounters Date Type Department Care Team (Late st Contact Info) Description 06/19/2025 11:00 AM CDT Office Visit [facility] Oncology and Hematology - [place] [address] [facility] [address] [place] [address] Alex Maciel MD [address] [facility] [address] [place] [address] documented as of this encounter Visit Diagnoses Diagnosis Radiotherapy follow-up examination- Primary documented in this encounter Additional Health Concerns Infection Onset Date Last Indicated Resolved Time R/O C. diff 01/19/2021 01/19/2021 01/19/2021 8:28 PM CDT documented as of this encounter Care Teams Adult Neuropsychologist Relationship Specialty Start Date End Date Les Mason MD [address] [place] [address] PCP - General Family Practice 01/10/21 documented as of this encounter
--- OUTSIDE RECORDS SUMMARY | 2025-03-24 10:41 | XMS_ITS | Encounter Summary ---
Author Organization [facility] Address [address] [place] [address] Care Team Providers Care Donor Relations Manager Name Role Phone Les Mason MD Primary Care Provider [phone] Encounter Details Date Type Department Care Team (Late Contact Info) Description 11/24/2004 Outpatient Historical [place] [address] [facility] [address] [place] [address] Anibal Quezada MD [address] [facility] [address] [place] [address] Social History Tobacco Use Types Packs/Day Years Used Date Smoking Tobacco: Never Assessed Sex and Gender Information Value Date Recorded Sex Assigned at Not on file Legal Sex Male 5:09 AM ACCESS ASSOC Gender Identity Not on file Sexual Orientation Not on file documented as of this encounter Plan of Treatment Upcoming Encounters Date Type Department Care Team (Late st Contact Info) Description 06/19/2025 11:00 AM CDT Office Visit [facility] Oncology and Hematology - [place] [address] [facility] [address] [place] [address] Alex Maciel MD [address] [facility] [address] [place] [address] documented as of this encounter Visit Diagnoses Not on filedocumented in this encounter Additional Health Concerns Infection Onset Date Last Indicated Resolved Time R/O C. diff 01/19/2021 01/19/2021 01/19/2021 8:28 PM CDT documented as of this encounter Care Teams Donor Relations Manager Relationship Specialty Start Date End Date Les Mason MD [address] [place] [address] PCP - General Family Practice 01/10/21 documented as of this encounter
--- OUTSIDE RECORDS SUMMARY | 2025-03-24 10:41 | XMS_ITS | Encounter Summary ---
Author Organization [facility] Address [address] [place] [address] Care Team Providers Care Mechanical Cad Drafter Name Role Phone Les Mason MD Primary Care Provider [phone] Encounter Details Date Type Department Care Team (Late st Contact Info) Description 06/04/2006 Outpatient Historical [facility] CANCER CENTER Anibal Quezada MD [address] [facility] 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 Gender Identity Not on file Sexual Orientation Not on file documented as of this encounter Plan of Treatment Upcoming Encounters Date Type Department Care Team (Late st Contact Info) Description 06/19/2025 11:00 AM CDT Office Visit [facility] Oncology and Hematology - [place] [address] [facility] [address] [place] [address] Alex Maciel MD [address] [facility] [address] [place] [address] documented as of this encounter Visit Diagnoses Not on filedocumented in this encounter Additional Health Concerns Infection Onset Date Last Indicated Resolved Time R/O C. diff 01/19/2021 01/19/2021 01/19/2021 8:28 PM CDT documented as of this encounter Care Teams Mechanical Cad Drafter Relationship Specialty Start Date End Date Les Mason MD [address] [place] [address] PCP - General Family Practice 01/10/21 documented as of this encounter
--- OUTSIDE RECORDS SUMMARY | 2025-03-24 10:41 | XMS_ITS | Encounter Summary ---
Author Organization [facility] Address [address] [place] [address] Care Team Providers Care Aircraft Mechanic Electrical And Radio Name Role Phone Les Mason MD Primary Care Provider [phone] Encounter Details Date Type Department Care Team (Latest Contact Info) Description 04/03/[address] [facility] Anibal Quezada MD [address] 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 Gender Identity Not on file Sexual Orientation Not on file documented as of this encounter Plan of Treatment Upcoming Encounters Date Type Department Care Team (Late st Contact Info) Description 06/19/2025 11:00 AM CDT Office Visit [facility] Oncology and Hematology - [place] [address] [facility] [address] [place] [address] Alex Maciel MD [address] [facility] [address] [place] [address] documented as of this encounter Visit Diagnoses Diagnosis Follow-up examination, following other surgery- Primary documented in this encounter Additional Health Concerns Infection Onset Date Last Indicated Resolved Time R/O C. diff 01/19/2021 01/19/2021 01/19/2021 8:28 PM CDT documented as of this encounter Care Teams Aircraft Mechanic Electrical And Radio Relationship Specialty Start Date End Date Les Mason MD [address] [place] [address] PCP - General Family Practice 01/10/21 documented as of this encounter
--- OUTSIDE RECORDS SUMMARY | 2025-03-24 10:41 | XMS_ITS | Encounter Summary ---
Author Organization [facility] Address [address] [place] [address] Care Team Providers Care Filtering Machine Tender Name Role Phone Les Mason MD Primary Care Provider [phone] Encounter Details Date Type Department Care Team (Latest Contact Info) Description 02/02/2009 Outpatient Historical [facility] Tootie Luna MD [address] 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 Gender Identity Not on file Sexual Orientation Not on file documented as of this encounter Plan of Treatment Upcoming Encounters Date Type Department Care Team (Late st Contact Info) Description 06/19/2025 11:00 AM CDT Office Visit [facility] Oncology and Hematology - [place] [address] [facility] [address] [place] [address] Alex Maciel MD [address] [facility] [address] [place] [address] documented as of this encounter Procedures Procedure Name Priority Date/Time Associated Diagnosis Comments XR CHEST PA AND LATERAL 2 VW Routine 02/02/2009 9:25 AM CDT documented in this encounter Results * XR CHEST PA AND LATERAL (02/02/2009 9:25 AM CDT) Anatomical Region Laterality Modality Chest Other 02/02/2009 9:25 AM CDT Narrative 02/02/2009 12:42 PM CDT [address] [address] Admit Date: 02/02/2009 DAVION VARGAS Sex: M Admit Prov: TOOTIE LUNA Date: 1950 Primary Care Prov: JESICA GRAMAJO CMRN: [id number] [facility] [address] [place] [address] IMAGING SERVICES Ordering Prov: N/A Accession Number: [id number] Interpretation PA AND LATERAL CHEST X-RAY. 02/02/2009 [...] Procedure Note Lona Souza MD - 02/02/[address] [place] [address] Admit Date: 02/02/2009 DAVION VARGAS Sex: M Admit Prov: TOOTIE LUNA Date: 1950 Primary Care Prov: JESIAC GRAMAJO CMRN: [id number] [facility] [address] [place] [address] IMAGING SERVICES Ordering Prov: N/A Interpretation PA [...] documented as of this encounter Care Teams Filtering Machine Tender Relationship Specialty Start Date End Date Les Mason MD [address] [place] [address] PCP - General Family Practice 01/10/21 documented as of this encounter
--- OUTSIDE RECORDS SUMMARY | 2025-03-24 10:41 | XMS_ITS | Encounter Summary ---
Author Organization [facility] Address [address] [place] [address] Care Team Providers Care Mechanical Apprentice Name Role Phone Les Mason MD Primary Care Provider [phone] Encounter Details Date Type Department Care Team (Latest Contact Info) Description 06/20/2005 Outpatient Historical [facility] [place] [address] [facility] [address] [place] [address] [address] LOPEZ HEAD/FACE/NECK (CMS/HCC) (Primary Dx) Social History Tobacco Use Types Packs/Day Years Used Date Smoking Tobacco: Never Assessed Sex and Gender Information Value Date Recorded Sex Assigned at Not on file 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 Gender Identity Not on file Sexual Orientation Not on file documented as of this encounter Plan of Treatment Upcoming Encounters Date Type Department Care Team (Late st Contact Info) Description 06/19/2025 11:00 AM CDT Office Visit [facility] Oncology and Hematology [place] [address] [place] [address] [facility] [address] [place] [address] Alex Maciel MD [address] [facility] [address] [place] [address] documented as of this encounter Visit Diagnoses Diagnosis Malignant neoplasm of head, face, and neck (CMS/HCC)- Primary Malignant neoplasm of head, face, and neck documented in this encounter Additional Health Concerns Infection Onset Date Last Indicated Resolved Time R/O C. diff 01/19/2021 01/19/2021 01/19/2021 8:28 PM CDT documented as of this encounter Care Teams Mechanical Apprentice Relationship Specialty Start Date End Date Les Mason MD [address] [place] [address] PCP - General Family Practice 01/10/21 documented as of this encounter
--- OUTSIDE RECORDS SUMMARY | 2025-03-24 10:41 | XMS_ITS | Encounter Summary ---
Author Organization [facility] Address [address] [place] [address] Care Team Providers Care Players Club Representative Name Role Phone Les Mason MD Primary Care Provider [phone] Encounter Details Date Type Department Care Team (Latest Contact Info) Description 09/07/2005 Outpatient Historical [facility] [place] [place] [address] [facility] [address] [place] [address] Anibal Quezada MD [address] [facility] 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 Gender Identity Not on file Sexual Orientation Not on file documented as of this encounter Plan of Treatment Upcoming Encounters Date Type Department Care Team (Late st Contact Info) Description 06/19/2025 11:00 AM CDT Office Visit [facility] Oncology and Hematology - [place] [address] [place] [address] Alex Maciel MD [address] [facility] [address] [place] [address] documented as of this encounter Visit Diagnoses Diagnosis 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 diff 01/19/2021 01/19/2021 01/19/2021 8:28 PM CDT documented as of this encounter Care Teams Players Club Representative Relationship Specialty Start Date End Date Les Mason MD [address] [place] [address] PCP - General Family Practice 01/10/21 documented as of this encounter
--- OUTSIDE RECORDS SUMMARY | 2025-03-24 10:41 | XMS_ITS | Clinical Summary ---
Author Organization [facility] Address [address] [place] [address] Care Team Providers Care Jewel Waxer Name Role Phone Les Mason MD Primary Care Provider [phone] Source Comments [facility],non-owned Affiliates and Associated Physician Practices is amultiple site organization consisting of ambulatory clinics and hospital sitesin [place], [place], [place] and [place]. This disclosure is being madepursuant to the Care Everywhere program and may not contain all information available regarding this patient. Last updated 18.[facility] Allergies No known active allergies Medications * Be aware that medications may not be up to date on this document. Alwaysverify current medications with the patient. No known medications Encounters Date Type Department Care Team Description 01/20/2025 Lab Requisition [facility] - DermPath Lab [address] [facility], [place] [address] Sheryl Hernandez MD from Last 3 Months Immunizations Immunization Administration Dates Next Due TDAP (7yrs+) 06/01/2024 Social History Tobacco Use Types Packs/Day Years Used Date Smoking Tobacco: Never Assessed Sex and Gender Information Value Date Recorded Sex Assigned at Not on file Legal Sex Male 5:51 AM PENAL OFFICER Gender Identity Not on file Sexual Orientation [...] AM CDT) Case Report Dermatopathology Report Case: [id number] Authorizing Provider: Sheryl Hernandez MD Collected: 01/19/2025 12:00 AM Ordering Location: [facility] - Received: 01/20/2025 02:20 PM [...] characteristic determined by the Dermatopathology Laboratory at [facility], directed by Dr. Camron Frey. These tests need not be, and therefore are not, approved by the [place] Food and Drug Administration. The tests are used for clinical purposes. Billing Codes Specimen Charges Stain Charges 21057 1 1:54 PM CDT DERMATOPATHOLOGY LABORATORY Embedded Images 1:54 PM CDT DERMATOPATHOLOGY LABORATORY Pathology/Cytolog y TISSUE SPECIMEN FROM SKIN / Unknown 01/19/2025 01/20/2025 2:20 PM CDT Sheryl Hernandez MD LAB - PATHOLOGY/CYTOLOGY OR DERABLES Final Result DERMATOPATHOLOGY LABORATORY [facility] - Department of Dermatology [facility] [address] [facility] 3rd [address] [phone] from Last 3 Months Insurance [facility] MANAGED MEDICARE ADV [facility] MANAGED MEDICARE ADV * Guarantor: DAVION VARGAS Account Type Relation to Patient Date of Phone Billing Address Personal/Family Spouse * Guarantor: DAVION GASPAR Account Type Relation to Patient Date of Phone Billing Address Personal/Family Spouse Care Teams Jewel Waxer Relationship Specialty Start Date End Date Les Mason MD [address] [place] [address] PCP - General Family Medicine 06/01/24
--- OUTSIDE RECORDS SUMMARY | 2025-03-24 10:41 | XMS_ITS | Clinical Summary ---
Author Organization [facility] Address [address] [place] [address] Phone Care Team Providers Care Corn Breeder Name Role Phone Les Mason MD Primary Care Provider [phone] Allergies No known active allergies Medications rosuvastatin [...] Encounters Date Type Department Care Team Description 03/17/2025 External Device Data STL ABSTRACTION Provider, Abstract 03/13/2025 12:15 PM CDT Office Visit [facility] Oncology and Hematology - [place] [address] [place] [id number] Alex Maciel MD Chronic anemia (Primary Dx) 03/12/2025 External Device Data STL ABSTRACTION Provider, Abstract 03/11/2025 External Device Data STL ABSTRACTION Provider, Abstract 03/05/2025 Orders Only [facility] Oncology and Hematology - [place] [address] [place] [phone] Alex Maciel MD 03/02/2025 Orders Only [facility]cology and H[facility]ology - [place] [address] [place] [address] Alex Maciel MD 02/27/2025 Orders Only [facility]cology and [facility] - [place] [address] [place] [phone] Alex Maciel MD from Last 3 Months [...] on file 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 Gender Identity Not on file Sexual Orientation Not on file Last Filed Vital Signs Vital Sign Reading Time Taken Comments Blood Pressure 132/72 03/13/2025 12:14 PM CDT Pulse 83 03/13/2025 12:14 PM CDT Temperature 36.7 C (98 F) 03/13/2025 12:14 PM CDT Respiratory Rate 15 03/13/2025 12:14 PM CDT Oxygen Saturation 98% 03/13/2025 12:14 PM CDT Inhaled Oxygen Concentration - - Weight 83.3 kg (183 lb 9.6 oz) 03/13/2025 12:14 PM CDT Height 172.7 cm (5' 8) 03/17/2021 9:50 AM CDT Body Mass Index 27.92 03/17/2021 9:50 AM CDT Plan of Treatment Upcoming Encounters Date Type Department Care Team (Late st Contact Info) Description 06/19/2025 11:00 AM CDT Office Visit [facility]cology and Hematology - [place] [address] [facility] [address] [place] [address] Alex Maciel MD [address] [facility] [address] [place] [address] Health Maintenance Due Date Last [...] Tdap) 06/01/2034 Medical Devices Implanted Type Area Professor Of Practice Device Identifier Shelf Expiration Date Model / Serial / Lot Clip Ligating Horizon Sm Ti [id number] - Csc - [id number] Implanted:Qty: 1 on 01/17/2021 by Anibal Garcia MD at [facility] Clip Right: Leg [employer]LE[employer] 01/05/2025 [id number] / / [id number] Clip Ligating Horizon Med Ti 368844 - Csc - [id number] Implanted:Qty: 1 on 01/17/2021 by Anibal Garcia MD at [facility] Clip Right: Leg TELEFLEX- WECK CLOSURE SYS 04/07/[id number] / / [id number] Clip Micro Pageton 6s [id number] - [id number] Implanted:Qty: 1 on 01/17/2021 by Anibal Garcia MD at [facility] Clip N/A: Face VITALITEC INTL [id number] 11/21/2023 [id number] 1 Clip Ligating Horizon Med Ti 473720 - Csc - [id number] Implanted:Qty: 1 on 01/17/2021 by Anibal Garcia MD at [facility] Clip Right: Leg TELEFLEX- WECK CLOSURE SYS 05/17/2025 [id number] / / [id number] Clip Micro Pageton 6s [id number] - [id number] Implanted:Qty: 1 on 01/17/2021 by Anibal Garcia MD at [facility] Clip N/A: Face VITALITEC INTL [id number] 04/20/2024 [id number] 4 Clip Ligating Horizon Sm Ti 437633 - Csc - [id number] Implanted:Qty: 1 on 01/17/2021 by Anibal Garcia MD at [facility] Clip Right: Leg TELE[employer]LEX INC [id number] 06/11/2023 [id number] / / [id number] Channel Sales Director Microvasc Anastomotic 3.5mm [id number] - [id number] Implanted:Qty: 1 on 01/17/2021 by Anibal Garcia MD at [facility] Other N/A: Face SYNOVIS- MICRO [employer] ALLIANCE 12/09/2025 [id number] / / [id number] Plate Matrixmandible Sharon Recon .503.733 - Ssterilized Jan 06 Implanted:Qty: 1 on 01/17/2021 by Anibal Quezada MD at [facility] Plate Right: Mandible SYNTHES-STRATEC - MAXIFACIAL 04.503.7 33 / STERILIZ ED JAN 06 / LOAD [address] Loc 2.0mm 04.503.618.01 - Ssterilized Jan 06 Implanted:Qty: 1 on 01/17/2021 by Anibal Quezada MD at [facility] Screw N/A: Mandible SYNTHES-STRATEC - MAXIFACIAL 04.503.6 18.01 / STERILIZ ED JAN 06 21 / LOAD [address] Loc 2.0mm 04.503.614.01 - Ssterilized Jan 06 Implanted:Qty: 2 on 01/17/2021 by Anibal Quezada MD at [facility] Screw N/A: Mandible SYNTHES-STRATEC - MAXIFACIAL 04.503.6 14.01 / STERILIZ ED JAN 06 21 / LOAD 212 Screw Sd Loc 2.0x8mm 04.503.548.01 - Ssterilized Jan 06 Implanted:Qty: 3 on 01/17/2021 by Anibal Quezada MD at [facility] Screw N/A: Mandible SYNTHES-STRATEC - MAXIFACIAL 04.503.5 48.01 / STERILIZ ED JAN 06 / LOAD [address] Loc 2.0mm 04.503.610.01 - Ssterilized Jan 06 Implanted:Qty: 1 on 01/17/2021 by Anibal Garcia MD at [facility] Screw N/A: Mandible SYNTHES-STRATEC - MAXIFACIAL 04.503.6 10.01 / STERILIZ ED JAN 06 / LOAD 212 Description:All Synthes faci al components are processed on requisition, 436136. Screw Matrixmandible St Loc 2.0mm 04.503.612.01 - Ssterilized Jan 06 Implanted:Qty: 1 on 01/17/2021 by Anibal Garcia MD at [facility] Screw N/A: Mandible SYNTHES-STRATEC - MAXIFACIAL 04.503.6 12.01 / STERILIZ ED JAN 06 / LOAD [address] Loc 2.0mm 04.503.618.01 - Ssterilized Jan 06 Implanted:Qty: 1 on 01/17/2021 by Anibal Garcia MD at [facility] Screw N/A: Mandible SYNTHES-STRATEC - MAXIFACIAL 04.503.6 18.01 / STERILIZ ED JAN 06 / LOAD 212 Tube Trach Cuf Lopre Sz 8 8dct - [id number] Implanted:Qty: 1 on 01/17/2021 by Anibal Garcia MD at [facility] Trach N/A: Trachea MEDTRONIC - COVIDIEN 10/06/2025 8DCT / / [id number] Explanted Type Area Professor Of Practice Device Identifier Shelf Expiration Date Model / Serial / Lot Screw Sd Loc 2.0x8mm 548.01 - Ssterilized Jan 06 Implanted:Anibal Quezada MD (Quantity not on file) Explanted:Qty: 1 on 01/17/2021 by Anibal Quezada MD at [facility] Screw N/A: Mandible SYNTHES-STRATEC- MAXIFACIAL 54 8.01 / STERILIZE D JAN 06 / LOAD 212 Procedures Procedure Name Priority Date/Time Associated Diagnosis Comments US VENOUS DOPPLER LEG RIGHT Routine 02/19 3:37 PM CDT CBC WITH AUTODIFFERENTIAL Routine 2024 1:30 PM CDT IRON LEVEL Routine 02/27/2025 9:46 AM CDT from Last 3 Months Results * US VENOUS DOPPLER LEG RIGHT (03/05/2025 3:37 PM CDT) Anatomical Region Laterality Modality Lower Extremity Ultrasound us Alex Maciel MD US ORDERABLES Final Result * CBC WITH AUTODIFFERENTIAL (02/27/2025 1:30 PM CDT) Blood us Alex Maciel MD HEMATOLOGY ORDERABLES Final Res ult * IRON LEVEL (02/27/2025 9:46 AM CDT) Blood us Alex Maciel MD CHEMISTRY ORDERABLES Final Resu lt from Last 3 Months Insurance RX [employer] RX Member Subscriber Plan / Payer (Ef fective for All Dates) Name:Angel Vargas Relation to Subscriber:Self Name:Angel Vargas Payer ID:Not on file Group ID:[id number] Type:RX Medicare Part D Address: [place] Advance Directives For more information, please contact: [phone] Documents on File Type Date Recorded Patient Flight Line Mechanic Expl anation Advance Directive Living Will 01/24/2021 12:02 PM Advance Directive Living Will Advance Directive POA 01/24/2021 12:00 PM A dvance Directive POA * Full Code (Latest Code Status on File) Date Activated Date Inactivated Comments 01/17/2021 5:02 PM 01/25/2021 6:46 PM * Full Code Date Activated Date Inactivated Comments 01/17/2021 5:46 AM 01/17/2021 5:02 PM Care Teams Corn Breeder Relationship Specialty Start Date End Date Les Mason MD [address] [place] [address] PCP - General Family Practice 01/10/21
--- OUTSIDE RECORDS SUMMARY | 2025-03-24 10:41 | XMS_ITS | Encounter Summary ---
Author Organization [facility] Address [address] [place] [address] Care Team Providers Care Package Dyer Name Role Phone Les Mason MD Primary Care Provider [phone] Encounter Details Date Type Department Care Team (Latest Contact Info) Description 05/03/2006 Outpatient Historical [facility] Anibal Quezada MD [address] 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 Gender Identity Not on file Sexual Orientation Not on file documented as of this encounter Plan of Treatment Upcoming Encounters Date Type Department Care Team (Late st Contact Info) Description 06/19/2025 11:00 AM CDT Office Visit [facility] Oncology and Hematology - [place] [address] [facility] [address] [place] [address] Alex Maciel MD [address] [facility] [address] [place] [address] documented as of this encounter [...] documented as of this encounter Care Teams Package Dyer Relationship Specialty Start Date End Date Les Mason MD [address] [place] [address] PCP - General Family Practice 01/10/21 documented as of this encounter
--- OUTSIDE RECORDS SUMMARY | 2025-03-24 10:41 | XMS_ITS | Encounter Summary ---
Author Organization [facility] Address [address] [place] [address] Care Team Providers Care Audit Clerks Supervisor Name Role Phone Les Mason MD Primary Care Provider [phone] Encounter Details Date Type Department Care Team (Latest Contact Info) Description 04/05/2006 Outpatient Historical [facility] [place] [place] [address] [facility] [address] [place] [address] Anibal Quezada MD [address] [facility] 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 Gender Identity Not on file Sexual Orientation Not on file documented as of this encounter Plan of Treatment Upcoming Encounters Date Type Department Care Team (Late st Contact Info) Description 06/19/2025 11:00 AM CDT [facility] [place] [address] [facility] [address] [place] [address] Alex Maciel MD [address] [facility] [address] [place] [address] documented as of this encounter Visit Diagnoses Diagnosis 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 diff 01/19/2021 01/19/2021 01/19/2021 8:28 PM CDT documented as of this encounter Care Teams Audit Clerks Supervisor Relationship Specialty Start Date End Date Les Mason MD [address] [place] [address] PCP - General Family Practice 01/10/21 documented as of this encounter
--- OUTSIDE RECORDS SUMMARY | 2025-03-24 10:41 | XMS_ITS | Encounter Summary ---
Author Organization [facility] Address [address] [place] [address] Care Team Providers Care Gunner'S Mate G Name Role Phone Les Mason MD Primary Care Provider [phone] Encounter Details Date Type Department Care Team (Latest Contact Info) Description 05/11/2005 Outpatient Historical [facility] [place] [address] [facility] [address] [place] [address] Anibal Quezada MD [address] [facility]. 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 Gender Identity Not on file Sexual Orientation Not on file documented as of this encounter Plan of Treatment Upcoming Encounters Date Type Department Care Team (Late st Contact Info) Description 06/19/2025 11:00 AM CDT Office Visit [facility] Oncology and Hematology - [place] [address] Luc[address] [facility] [address] [place] [address] Alex Maciel MD 2227 [facility] [address] [place] [address] documented as of this encounter [...] documented as of this encounter Care Teams Gunner'S Mate G Relationship Specialty Start Date End Date Les Mason MD [address] [place] [address] PCP - General Family Practice 01/10/21 documented as of this encounter
--- OUTSIDE RECORDS SUMMARY | 2025-03-24 10:41 | XMS_ITS | Encounter Summary ---
Author Organization [facility] Address 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) Social History Tobacco Use Types Packs/Day Years Used Date Smoking Tobacco: Never Assessed Sex and Gender Information Value Date Recorded Sex Assigned at Not on file 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 Gender Identity Not on file Sexual Orientation Not on file documented as of this encounter Plan of Treatment Upcoming Encounters Date Type Department Care Team (Late st Contact Info) Description 06/19/2025 11:00 AM CDT Office Visit [facility] Oncology and Hematology - [place] 2227 [facility] 200 [place] [address] Alex Maciel MD 2[address] [facility] [address] [place] [address] documented as of this encounter [...] documented as of this encounter Care Teams Machine Strap Buckler Relationship Specialty Start Date End Date Les Mason MD [address] [place] [address] PCP - General Family Practice 01/10/21 documented as of this encounter
--- OUTSIDE RECORDS SUMMARY | 2025-03-24 10:42 | XMS_ITS | Encounter Summary ---
Author Organization [facility] Address [address] [place] [address] Care Team Providers Care Kindergarten Classroom Teacher Name Role Phone Les Mason MD Primary Care Provider [phone] Encounter Details Date Type Department Care Team (Latest Contact Info) Description 11/17/2004 Outpatient Historical [facility] Anibal Quezada MD [address] [facility] [place]. 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 Gender Identity Not on file Sexual Orientation Not on file documented as of this encounter Plan of Treatment Upcoming Encounters Date Type Department Care Team (Late st Contact Info) Description 06/19/2025 11:00 AM CDT [facility] Visit [facility] Oncology and Hematology - [place] [address] [facility] [address] [place] [address] Alex Maciel MD 2227 [facility] [address] [place] [address] documented as of this encounter Visit Diagnoses Diagnosis Follow-up examination, following other surgery- Primary documented in this encounter Additional Health Concerns Infection Onset Date Last Indicated Resolved Time R/O C. diff 01/19/2021 01/19/2021 01/19/2021 8:28 PM CDT documented as of this encounter Care Teams Kindergarten Classroom Teacher Relationship Specialty Start Date End Date Les Mason MD [address] [place] [address] PCP - General Family Practice 01/10/21 documented as of this encounter
--- OUTSIDE RECORDS SUMMARY | 2025-03-24 10:42 | XMS_ITS | Encounter Summary ---
Author Organization [facility] Address [address] [place] [address] Care Team Providers Care Livestock Handler Name Role Phone Les Mason MD Primary Care Provider [phone] Encounter Details Date Type Department Care Team (Latest Contact Info) Description 06/29/2004 Inpatient Historical HIS PATIENT IN A BED Anibal Quezada MD [address] [facility]. 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 Gender Identity Not on file Sexual Orientation Not on file documented as of this encounter Plan of Treatment Upcoming Encounters Date Type Department Care Team (Late st Contact Info) Description 06/19/2025 11:00 AM CDT Office Visit [facility] Oncology and Hematology - [place] 2227 [facility] [address] [place] [address] Alex Maciel MD 2227 [facility] [address] [place] [address] documented as of this encounter Visit Diagnoses Diagnosis 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 diff 01/19/2021 01/19/2021 01/19/2021 8:28 PM CDT documented as of this encounter Care Teams Livestock Handler Relationship Specialty Start Date End Date Les Mason MD [address] [place] [address] PCP - General Family Practice 01/10/21 documented as of this encounter
--- OUTSIDE RECORDS SUMMARY | 2025-03-24 10:42 | XMS_ITS | Encounter Summary ---
Author Organization [facility] Address [address] [place] [address] Care Team Providers Care Fiberglass Fabricator Name Role Phone Les Mason MD Primary Care Provider [phone] Encounter Details Date Type Department Care Team (Late st Contact Info) Description 06/29/2004 Outpatient Historical [facility] [address] 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 [address] [place] [address] Alex Maciel MD 2227 [facility] [address] [place] [address] documented as of this encounter Visit Diagnoses Not on filedocumented in this encounter Additional Health Concerns Infection Onset Date Last Indicated Resolved Time R/O C. diff 01/19/2021 01/19/2021 01/19/2021 8:28 PM CDT documented as of this encounter Care Teams Fiberglass Fabricator Relationship Specialty Start Date End Date Les Mason MD [address] [place] [address] PCP - General Family Practice 01/10/21 documented as of this encounter
--- OUTSIDE RECORDS SUMMARY | 2025-03-24 10:42 | XMS_ITS | Encounter Summary ---
Author Organization [facility] Address [address] [place] [address] Care Team Providers Care Wincher Name Role Phone Les Mason MD Primary Care Provider [phone] Encounter Details Date Type Department Care Team (Latest Contact Info) Description 07/19/2004 Outpatient Historical [place] [address] [facility] [address] [place] [address] Anibal Quezada MD [address] [facility]. 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 Gender Identity Not on file Sexual Orientation Not on file documented as of this encounter Plan of Treatment Upcoming Encounters Date Type Department Care Team (Late st Contact Info) Description 06/19/2025 11:00 AM CDT Office Visit [facility] Oncology and Hematology - [place] [address] [email or web address] [address] [place] [address] Alex Maciel MD 2227 [facility] [address] [place] [address] documented as of this encounter Visit Diagnoses Diagnosis Malignant neoplasm of head, face, and neck (CMS/HCC)- Primary Malignant neoplasm of head, face, and neck documented in this encounter Additional Health Concerns Infection Onset Date Last Indicated Resolved Time R/O C. diff 01/19/2021 01/19/2021 01/19/2021 8:28 PM CDT documented as of this encounter Care Teams Wincher Relationship Specialty Start Date End Date Les Mason MD [address] [place] [address] PCP - General Family Practice 01/10/21 documented as of this encounter
--- OUTSIDE RECORDS SUMMARY | 2025-03-24 10:42 | XMS_ITS | Encounter Summary ---
Author Organization [facility] Address [address] [place] [address] Care Team Providers Care Software Configuration Manager Name Role Phone Les Mason MD Primary Care Provider [phone] Encounter Details Date Type Department Care Team (Latest Contact Info) Description 06/17/2004 Outpatient Historical [place] [address] [facility] [address] [place] [address] Anibal Quezada MD [address] [facility]. 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 200 [place] [address] Alex Maciel MD 2227 [facility] [address] [place] [address] documented as of this encounter Visit Diagnoses Diagnosis Malignant neoplasm of head, face, and neck (CMS/HCC)- Primary Malignant neoplasm of head, face, and neck documented in this encounter Additional Health Concerns Infection Onset Date Last Indicated Resolved Time R/O C. diff 01/19/2021 01/19/2021 01/19/2021 8:28 PM CDT documented as of this encounter Care Teams Software Configuration Manager Relationship Specialty Start Date End Date Les Mason MD [address] [place] [address] PCP - General Family Practice 01/10/21 documented as of this encounter
--- OUTSIDE RECORDS SUMMARY | 2025-03-24 10:42 | XMS_ITS | Encounter Summary ---
Author Organization [facility] Address [address] [place] [address] Care Team Providers Care Mortuary Operations Manager Name Role Phone Les Mason MD Primary Care Provider [phone] Encounter Details Date Type Department Care Team (Latest Contact Info) Description 08/20/2004 Outpatient Historical [place] [address] [facility] [address] [place] [address] Anibal Quezada MD [address] [facility]. 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 Gender Identity Not on file Sexual Orientation Not on file documented as of this encounter Plan of Treatment Upcoming Encounters Date Type Department Care Team (Late st Contact Info) Description 06/19/2025 11:00 AM CDT Office Visit [facility] Oncology and Hematology - [place] 2227 [facility] [address] [place] [address] Alex Maciel MD 2227 [facility] [address] [place] [address] documented as of this encounter Visit Diagnoses Diagnosis Malignant neoplasm of head, face, and neck (CMS/HCC)- Primary Malignant neoplasm of head, face, and neck documented in this encounter Additional Health Concerns Infection Onset Date Last Indicated Resolved Time R/O C. diff 01/19/2021 01/19/2021 01/19/2021 8:28 PM CDT documented as of this encounter Care Teams Mortuary Operations Manager Relationship Specialty Start Date End Date Les Mason MD [address] [place] [address] PCP - General Family Practice 01/10/21 documented as of this encounter
--- OUTSIDE RECORDS SUMMARY | 2025-03-24 10:42 | XMS_ITS | Encounter Summary ---
Author Organization [facility] Address [address] [place] [address] Care Team Providers Care Director Talent Acquisition Name Role Phone Les Mason MD Primary Care Provider [phone] Encounter Details Date Type Department Care Team (Latest Contact Info) Description 09/21/2004 Outpatient Historical [place] [address] [facility] [address] [place] [address] Anibal Quezada MD [address] [facility]. 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 Gender Identity Not on file Sexual Orientation Not on file documented as of this encounter Plan of Treatment Upcoming Encounters Date Type Department Care Team (Late st Contact Info) Description 06/19/2025 11:00 AM CDT Office Visit [facility] Oncology and Hematology - [place] [address] [facility] 200 [place] [address] Alex Maciel MD 2227 [facility] [address] [place] [address] documented as of this encounter Visit Diagnoses Diagnosis Malignant neoplasm of head, face, and neck (CMS/HCC)- Primary Malignant neoplasm of head, face, and neck documented in this encounter Additional Health Concerns Infection Onset Date Last Indicated Resolved Time R/O C. diff 01/19/2021 01/19/2021 01/19/2021 8:28 PM CDT documented as of this encounter Care Teams Director Talent Acquisition Relationship Specialty Start Date End Date Les Mason MD [address] [place] [address] PCP - General Family Practice 01/10/21 documented as of this encounter
--- OUTSIDE RECORDS SUMMARY | 2025-03-24 10:42 | XMS_ITS | Encounter Summary ---
Author Organization [facility] Address [address] [place] [address] Care Team Providers Care Principal Network Engineer Name Role Phone Les Mason MD Primary Care Provider [phone] Encounter Details Date Type Department Care Team (Latest Contact Info) Description 06/20/2004 Outpatient Historical [facility] Anibal Quezada MD [address] [facility] [address] 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 Gender Identity Not on file Sexual Orientation Not on file documented as of this encounter Plan of Treatment Upcoming Encounters Date Type Department Care Team (Late st Contact Info) Description 06/19/2025 11:00 AM CDT Office Visit [facility] Oncology and Hematology - [place] 2227 [facility] 200 [place] [address] Alex Maciel MD 2227 [facility] [address] [place] [address] documented as of this encounter Visit Diagnoses Diagnosis 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 diff 01/19/2021 01/19/2021 01/19/2021 8:2 8 PM CDT documented as of this encounter Care Teams Principal Network Engineer Relationship Specialty Start Date End Date Les Mason MD [address] [place] [address] PCP - General Family Practice 01/10/21 documented as of this encounter
[2025-03-24 10:59] LABS: Anion Gap 10 mmol/L (4-12); Blood Urea Nitrogen 16 mg/dL (9-20); Carbon Dioxide 25 mmol/L (22-30); Chloride 98 mmol/L (98-107); Potassium 4.3 mmol/L (3.4-5.0); Sodium 133 mmol/L (137-145)
[2025-03-24 11:00] LABS: Calcium 9.3 mg/dL (8.4-10.2); Estimated Glomerular Filt Rate > 60; Glucose 94 mg/dL (65-110)
== END 2025-03-24 10:19 | disposition home or self-care (01) ==
LOC: ANHSURGERY 10:22
PROVIDERS: Anesthesiology; PCP Family Medicine; Visit Provider Urology
DX: E78.5 Hyperlipidemia, unspecified (principal); Z01.818 Encounter for other preprocedural examination
CPT/HCPCS: 36415; 80048; 93005

== ENCOUNTER 2025-04-02 03:36 | Day surgery (SDC) | payer MEDICARE, SELFPAY ==
--- NOTE | 2025-03-10 06:21 | P.HP_ITS ---
History of Present Illness History of Present Illness Consent: Risks, benefits, and alternatives have been discussed and questions answered. Patient agrees to proceed with procedure. Chief complaint: bladder CA Narrative: Angel Vargas is a 74 year old male: 04/2023: ?At time of cystoscopy and clot evacuation Dr. Evans found 2 small bladder tumors ?Ta, low-grade ?- ?Low Risk ?CT-abd/pelvis w/wo contrast: normal 08/2023: ?TURBT: Ta, low-grade - ?Intermediate Risk ?Discussed induction BCG - pt. opted against 11/2023: ?Long admission for persistent hematuria 12/19/23: ?Cystoscopy: no recurrent BT / no radiation cystitis 12/2023: ?DVT: Started Xerelto 07/2024: ?TURBT: Pathology: Ta, low-grade ?- Intermediate Risk ?Continues to opt agains BCG 10/2024: ?Cysto.: Necrotic tissue at dome / no obvious neoplasm 01/2025: ?Cysto.: Healthy bladder except for small papillary lesion left lat. wall. Review of Systems Cardiovascular: Cardiovascular: Denies chest pain, Denies lightheadedness, Denies palpitations and Denies dyspnea Respiratory: Respiratory: Denies dyspnea Gastrointestinal: Gastrointestinal: Denies diarrhea, Denies nausea and Denies vomiting Genitourinary: Genitourinary: Denies hematuria and Denies dysuria Endocrine: Endocrine: Denies palpitations FOR[facility], [facility] Past Medical History Medical History Iron deficiency anemia Bladder cancer (08/2023) Noninvasive low-grade papillary urothelial carcinoma. Tongue cancer Status post radiation. 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 Surgical History Surgical History History of transurethral resection of bladder tumor (TURBT) History of hernia repair History of colonoscopy with polypectomy History of cystoscopy History of mandibular surgery Family History Family History Father Diabetes mellitus Hypertension Acute angina Coronary artery disease Heart disease Mother Congestive heart failure Diabetes mellitus Sibling Myocardial infarction Heart disease Sibling No problems noted. Social History Social History Social History: Surrogate medical decision maker: Babita Schreiber, spouse. Code status: Full code. Smoking status: Never smoker Second hand tobacco smoke exposure: No Alcohol intake: current Drinks per week: 14 Alcohol use details: 3 BEERS/DAY Substance use: never Substance use type: marijuana Other substance usage details: Gummies occasionally Do You Feel Safe in your Home?: Yes Lack of Transportation: No Lack of Food: Never True Current Housing: I Have Housing Concerned About Future Housing: Decline to Answer Difficulty Paying Gas/Electric Bills: Decline to Answer Difficulty Paying for Meds: Decline to Answer Currently Unemployed: Decline to Answer Education: Master's Degree or Higher Difficulty w/ Childcare or Family Care: No Living arrangements: with family Additional living arrangements comments: Occupation/Education: retired Additional occupation/education comments: [employer]. Spiritual care concerns: No Meds Home Medications and Allergies Home Medications ?Medication ?Instructions ?Recorded ?Confirmed ?Type tamsulosin 0.4 mg capsule 0.4 mg PO HS 10/24/23 10/23/24 History ferrous sulfate 325 mg (65 mg 325 mg PO BID #60 tabs 02/04/24 10/23/24 Rx iron) tablet,delayed release lisinopril 20 mg tablet 20 mg PO DAILY #90 tabs 05/29/24 10/23/24 Rx rosuvastatin 20 mg tablet See Rx Instructions .Route 05/29/24 10/23/24 Rx .COMPLEX #90 tabs meclizine 25 mg tablet 25 mg PO BID PRN dizziness #180 06/16/24 10/23/24 Rx tabs hydrochlorothiazide 12.5 mg tablet 12.5 mg PO DAILY #30 tabs 08/12/24 10/23/24 Rx levothyroxine 112 mcg tablet 112 mcg PO DAILY #90 tabs 10/07/24 10/23/24 Rx rivaroxaban 15 mg tablet (Xarelto) 15 mg PO DAILY #30 tabs 10/28/24 Rx omeprazole 20 mg capsule,delayed 20 mg PO DAILY #90 caps 02/18/25 Rx release Allergies Allergy/AdvReac Type Severity Reaction Status Date / Time No Known Allergies Allergy Unknown Verified 10/23/24 12:29 Exam Const: General: no acute distress Resp: Effort & Inspection: normal respiratory effort GI: Inspection: non-distended GI Palp: No abdominal tenderness and No Guarding due to palpation present (GI) Auscultation: normal bowel sounds Assessment and Plan Assessment and plan (1) Cancer of overlapping sites of bladder: Code(s): C67.8 - Malignant neoplasm of overlapping sites of bladder Status: Acute Assessment and Plan: * TURBT / Gemcitabine instillation
[2025-03-19 08:43] VITALS: BMI 28.6
--- NOTE | 2025-03-19 09:05 | PC.NURSE ---
Report to the Outpatient Waiting Room, entrance under the green pavilion located off [facility], at time ___6:00AM___ on date ___04/02/25____. Planned Procedure Time: ___7:30AM____.? Time changes happen often and if your time is changed the preop area will call you the afternoon before. - You and your visitor will be asked to self-screen and do not enter if you have any COVID symptoms. Please call surgeon if you need to reschedule. - A mask is optional within the hospital at this time. Patients may have clear liquids (water, carbonated beverages, clear teas, apple juice) until 3 hours prior to surgery (4:30AM) with a maximum of 20 ounces. - No food from midnight until time of surgery and no smoking, or chewing tobacco (or any form of nicotine). No chewing gum, candy or mints. Take only the following medications with a SIP of water on the morning of surgery: ____LEVOTHYROXINE. MAY TAKE MECLIZINE NEEDED. DO NOT STOP ANY OF YOUR OTHER PRESCRIPTION MEDICATIONS PRIOR TO SURGERY EXCEPT THE FOLLOWING Hold all vitamins and supplements for 3 days per anesthesiologist-LAST DOSE 03/29/25.. Medications to discontinue per physician ___HOLD XERALTO 3 DAYS PRE-OP PER DR ANDERSON Date to take last dose____03/29/25 Please no make-up, nail indonesian, hairspray, perfume, deodorant, or body powder the day of surgery.? No jewelry (including any body piercings) or valuables the day of surgery, leave them at home.? Please take a shower or bath the night before, or the morning of, surgery with an antibacterial soap.? Wear comfortable, loose fitting clothing.? - Jewelry must be removed prior to entering the operating room.? Rings and piercings that are not removed may be cut off. - The hospital will not accept responsibility for valuables.? - Please leave all valuables, including medications, at home the day of surgery. If you are going home after surgery, a licensed bobcat driver/labor must drive you home.? - NO public transportation without another adult if you receive anesthesia. - We recommend that an adult stay with you for 24 hours following discharge. - We also recommend that you do not drive, make important decision, drink alcoholic beverages, or take any drugs that were not prescribed by your health care provider for at least 24 hours after your discharge time. Follow any additional instructions given to you from your surgeon. Telephone instructions given to ____PATIENT and asked if any additional questions and then verbalized understanding. Patient advised to call surgeon office or pre surgery nurse liaison [phone] if any additional questions.
[2025-04-02] VITALS (11 sets, daily range): BP systolic 90–144; BP diastolic 51–80; PULSE 61–76; RESP 9–18; TEMP 36.2–36.9; O2SAT 96–100
--- OUTSIDE RECORDS SUMMARY | 2025-04-02 03:38 | XMS_ITS | Clinical Summary ---
Author Organization Cristino Morrow [facility] Address [address] [place] [address] Phone Care Team Providers Care Sql Developer Name Role Phone Les Mason MD Primary Care Provider [phone] Allergies No known active allergies Medications rosuvastatin [...] Encounters Date Type Department Care Team Description 03/24/2025 External Device Data STL ABSTRACTION Provider, Abstract 03/17/2025 External Device Data STL ABSTRACTION Provider, Abstract 03/13/2025 12:15 PM CDT Office Visit [facility] Oncology and Hematology - [place] [address] [place] [id number] Alex Maciel MD Chronic anemia (Primary Dx) 03/12/2025 External Device Data STL ABSTRACTION Provider, Abstract 03/11/2025 External Device Data STL ABSTRACTION Provider, Abstract 03/05/2025 Orders Only [facility] Oncology and Hematology - [place] [address] [place] [id number] Alex Maciel MD 03/02/2025 Orders Only [facility] Oncology and Hematology - [place] [address] [place] [id number] Alex Maciel MD 02/27/2025 Orders Only [facility] Oncology and Hematology - [place] [address] [place] [id number] Alex Maciel MD from Last 3 Months [...] on file 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 Gender Identity Not on file Sexual [...] Description 06/19/2025 11:00 AM CDT Office Visit [facility] Oncology and Hematology - [place] [address] [facility] [address] [place] [address] Alex Maciel MD [address] [facility] [address] [place] [address] Health Maintenance Due Date Last [...] Tdap) 06/01/2034 Medical Devices Implanted Type Area Placing Judge Device Identifier Shelf Expiration Date Model / Serial / Lot Clip Ligating Horizon Sm Ti [id number] - Csc - [id number] Implanted:Qty: 1 on 01/17/2021 by Anibal Garcia MD at [facility] Clip Right: Leg TELE[employer]LEX INC 01/05/2025 [id number] / / [id number] Clip Ligating Horizon Med Ti 722207 - Csc - [id number] Implanted:Qty: 1 on 01/17/2021 by Anibal Garcia MD at [facility] Clip Right: Leg TELEFLEX- WECK CLOSURE SYS 04/07/2025 [id number] / / [id number] Clip Micro Yazoo 6s [id number] - [id number] Implanted:Qty: 1 on 01/17/2021 by Anibal Garcia MD at [facility] Clip N/A: Face VITALITEC INTL [id number] 11/21/2023 [id number] 1 Clip Ligating Horizon Med Ti [id number] - Csc - [id number] Implanted:Qty: 1 on 01/17/2021 by Anibal Garcia MD at [facility] Clip Right: Leg TELEFLEX- WECK CLOSURE SYS 05/17/2025 [id number] / / [id number] Clip Micro Yazoo 6s [id number] - [id number] Implanted:Qty: 1 on 01/17/2021 by Anibal Garcia MD at [facility] Clip N/A: Face VITALITEC INTL [id number] 04/20/2024 [id number] 4 Clip Ligating Horizon Sm Ti 807702 - Csc - [id number] Implanted:Qty: 1 on 01/17/2021 by Anibal Garcia MD at [facility] Clip Right: Leg TELE[employer]LEX INC [id number] 06/11/2023 [id number] / / [id number] Geology Faculty Member Microvasc Anastomotic 3.5mm [id number] - [id number] Implanted:Qty: 1 on 01/17/2021 by Anibal Garcia MD at [facility] Other N/A: Face SYNOVIS- MICRO CO ALLIANCE 12/09/2025 [id number] / / [id number] Plate Matrixmandible Sharon Recon 503.733 - Ssterilized Jan 06 Implanted:Qty: 1 on 01/17/2021 by Anibal Quezada MD at [facility] Plate Right: Mandible SYNTHES-STRATEC - MAXIFACIAL 04.503.7 33 / STERILIZ ED JAN 06 / LOAD [address] Loc 2.0mm .503.618.01 - Ssterilized Jan 06 Implanted:Qty: 1 on 01/17/2021 by Anibal Quezada MD at [facility] Screw N/A: Mandible SYNTHES-STRATEC - MAXIFACIAL 04.503.6 18.01 / STERILIZ ED MAR 18 21 / LOAD [address] Loc 2.0mm 04.503.614.01 - Ssterilized Jan 06 Implanted:Qty: 2 on 01/17/2021 by Anibal Quezada MD at [facility] Screw N/A: Mandible SYNTHES-STRATEC - MAXIFACIAL 04.503.6 14.01 / STERILIZ ED DEC 18 21 / LOAD 212 Screw Sd Loc 2.0x8mm 04.503.548.01 - Ssterilized Jan 06 Implanted:Qty: 3 on 01/17/2021 by Anibal Quezada MD at [facility] Screw N/A: Mandible SYNTHES-STRATEC - MAXIFACIAL 04.503.5 48.01 / STERILIZ ED JAN 06 / LOAD [address] Loc 2.0mm 04.503.610.01 - Ssterilized Jan 06 Implanted:Qty: 1 on 01/17/2021 by Anibal Garcia MD at [facility] Screw N/A: Mandible SYNTHES-STRATEC - MAXIFACIAL 04.503.6 10.01 / STERILIZ ED JAN 06 / LOAD 212 Description:All Synthes faci al components are processed on requisition, [id number]. Screw Matrixmandible St Loc 2.0mm [id number] - Ssterilized Jan 06 Implanted:Qty: 1 on 01/17/2021 by Anibal Garcia MD at [facility] Screw N/A: Mandible SYNTHES-STRATEC - MAXIFACIAL 04.503.6 12.01 / STERILIZ ED JAN 06 / LOAD [address] Loc 2.0mm 04.503.618.01 - Ssterilized Jan 06 Implanted:Qty: 1 on 01/17/2021 by Anibal Garcia MD at [facility] Screw N/A: Mandible SYNTHES-STRATEC - MAXIFACIAL 04.503.6 18.01 / STERILIZ ED DEC 18 21 / LOAD 212 Tube Trach Cuf Lopre Sz 8 8dct - [id number] Implanted:Qty: 1 on 01/17/2021 by Anibal Garcia MD at [facility] Trach N/A: Trachea MEDTRONIC - COVIDIEN 10/06/2025 8DCT / / [id number] Explanted Type Area Placing Judge Device Identifier Shelf Expiration Date Model / Serial / Lot Screw Sd Loc 2.0x8mm 548.01 - Ssterilized Jan 06 Implanted:Anibal Quezada MD (Quantity not on file) Explanted:Qty: 1 on 01/17/2021 by Anibal Quezada MD at [facility] Screw N/A: Mandible SYNTHES-STRATEC- MAXIFACIAL 8.01 / STERILIZE D JAN 06 / [...] Advance Directives For more information, please contact: [phone] Documents on File Type Date Recorded Patient Brush Holder Assembler Expl anation Advance Directive Living Will 01/24/2021 12:02 PM Advance Directive Living Will Advance Directive POA 01/24/2021 12:00 PM A dvance Directive POA * Full Code (Latest Code Status on File) Date Activated Date Inactivated Comments 01/17/2021 5:02 PM 01/25/2021 6:46 PM * Full Code Date Activated Date Inactivated Comments 01/17/2021 5:46 AM 01/17/2021 5:02 PM Care Teams Sql Developer Relationship Specialty Start Date End Date Les Mason MD [address] [place] [address] PCP - General Family Practice 01/10/21
--- OUTSIDE RECORDS SUMMARY | 2025-04-02 03:39 | XMS_ITS | Encounter Summary ---
Author Organization [facility] Address 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) Social History Tobacco Use Types Packs/Day Years Used Date Smoking Tobacco: Never Assessed Sex and Gender Information Value Date Recorded Sex Assigned at Not on file 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 Gender Identity Not on file Sexual Orientation Not on file documented as of this encounter Plan of Treatment Upcoming Encounters Date Type Department Care Team (Late st Contact Info) Description 06/19/2025 11:00 AM CDT Office Visit [facility] Oncology and Hematology - [place] [address] [facility] 200 [place] [address] Alex Maciel MD [address] [facility] [address] [place] [address] documented as of this encounter [...] documented as of this encounter Care Teams Sports Activities Foul Judge Relationship Specialty Start Date End Date Les Mason MD [address] [place] [address] PCP - General Family Practice 01/10/21 documented as of this encounter
--- OUTSIDE RECORDS SUMMARY | 2025-04-02 03:39 | XMS_ITS | Encounter Summary ---
Author Organization [facility] Address [address] [place] [address] Care Team Providers Care Machine Shorthand Teacher Name Role Phone Les Mason MD Primary Care Provider [phone] Encounter Details Date Type Department Care Team (Late st Contact Info) Description 06/04/2006 Outpatient Historical [facility] Anibal Quezada MD [address] [facility]. 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 Gender Identity Not on file Sexual Orientation Not on file documented as of this encounter Plan of Treatment Upcoming Encounters Date Type Department Care Team (Late st Contact Info) Description 06/19/2025 11:00 AM CDT Office Visit [facility] Oncology and Hematology - [place] [address] [facility] 200 [place] [address] Alex Maciel MD [address] [facility] [address] [place] [address] documented as of this encounter Visit Diagnoses Not on filedocumented in this encounter Additional Health Concerns Infection Onset Date Last Indicated Resolved Time R/O C. diff 01/19/2021 01/19/2021 01/19/2021 8:28 PM CDT documented as of this encounter Care Teams Machine Shorthand Teacher Relationship Specialty Start Date End Date Les Mason MD [address] [place] [address] PCP - General Family Practice 01/10/21 documented as of this encounter
--- OUTSIDE RECORDS SUMMARY | 2025-04-02 03:39 | XMS_ITS | Encounter Summary ---
Author Organization [facility] Address [address] [place] [address] Care Team Providers Care Psychology Associate Name Role Phone Les Mason MD Primary Care Provider [phone] Encounter Details Date Type Department Care Team (Latest Contact Info) Description 09/21/2004 Outpatient Historical [facility] [place] [place] [address] [facility] [address] [place] [address] Anibal Quezada MD [address] [facility] 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 Gender Identity Not on file Sexual Orientation Not on file documented as of this encounter Plan of Treatment Upcoming Encounters Date Type Department Care Team (Late st Contact Info) Description 06/19/2025 11:00 AM CDT Office Visit [facility] Oncology and Hematology - [place] [address] [facility] 200 [place] [address] Alex Maciel MD [address] [facility] [address] [place] [address] documented as of this encounter Visit Diagnoses Diagnosis Malignant neoplasm of head, face, and neck (CMS/HCC)- Primary Malignant neoplasm of head, face, and neck documented in this encounter Additional Health Concerns Infection Onset Date Last Indicated Resolved Time R/O C. diff 01/19/2021 01/19/2021 01/19/2021 8:28 PM CDT documented as of this encounter Care Teams Psychology Associate Relationship Specialty Start Date End Date Les Mason MD [address] [place] [address] PCP - General Family Practice 01/10/21 documented as of this encounter
--- OUTSIDE RECORDS SUMMARY | 2025-04-02 03:39 | XMS_ITS | Encounter Summary ---
Author Organization [facility] Address [address] [place] [address] Care Team Providers Care Mobile Development Manager Name Role Phone Les Mason MD Primary Care Provider [phone] Encounter Details Date Type Department Care Team (Latest Contact Info) Description 04/03/2006 Outpatient Historical [facility] Anibal Quezada MD [address] [facility] [address] 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 Gender Identity Not on file Sexual Orientation Not on file documented as of this encounter Plan of Treatment Upcoming Encounters Date Type Department Care Team (Late st Contact Info) Description 06/19/2025 11:00 AM CDT Office Visit [facility] Oncology and Hematology - [place] [address] [facility] 200 [place] [address] Alex Maciel MD [address] [facility] [address] [place] [address] documented as of this encounter Visit Diagnoses Diagnosis Follow-up examination, following other surgery- Primary documented in this encounter Additional Health Concerns Infection Onset Date Last Indicated Resolved Time R/O C. diff 01/19/2021 01/19/2021 01/19/2021 8:28 PM CDT documented as of this encounter Care Teams Mobile Development Manager Relationship Specialty Start Date End Date Les Mason MD [address] [place] [address] PCP - General Family Practice 01/10/21 documented as of this encounter
--- OUTSIDE RECORDS SUMMARY | 2025-04-02 03:39 | XMS_ITS | Encounter Summary ---
Author Organization [facility] Address 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) Social History Tobacco Use Types Packs/Day Years Used Date Smoking Tobacco: Never Assessed Sex and Gender Information Value Date Recorded Sex Assigned at Not on file 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 Gender Identity Not on file Sexual Orientation Not on file documented as of this encounter Plan of Treatment Upcoming Encounters Date Type Department Care Team (Late st Contact Info) Description 06/19/2025 11:00 AM CDT Office Visit [facility] Oncology and Hematology - [place] [address] [place] [address] [address] Alex Maciel MD [address] [facility] [address] [place] [address] documented as of this encounter Visit Diagnoses Diagnosis 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 diff 01/19/2021 01/19/2021 01/19/2021 8:28 PM CDT documented as of this encounter Care Teams Supervisor Backfilling Relationship Specialty Start Date End Date Les Mason MD [address] [place] [address] PCP - General Family Practice 01/10/21 documented as of this encounter
--- OUTSIDE RECORDS SUMMARY | 2025-04-02 03:39 | XMS_ITS | Clinical Summary ---
Author Organization [facility] Address [address] [place] [address] Care Team Providers Care Video Presentation Operator Name Role Phone Les Mason MD Primary Care Provider [phone] [facility],non-owned Affiliates and Associated Physician Practices is amultiple site organization consisting of ambulatory clinics and hospital sitesin [place], [place], [place] and [place]. This disclosure is being madepursuant to the Care Everywhere program and may not contain all information available regarding this patient. Last updated 18.[facility] Allergies No known active allergies Medications * Be aware that medications may not be up to date on this document. Alwaysverify current medications with the patient. 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 Camron Frey. These tests need not be, and therefore are not, approved by the [place] Food and Drug Administration. The tests are used for clinical purposes. Billing Codes Specimen Charges Stain Charges 40953 1 1:54 PM CDT DERMATOPATHOLOGY LABORATORY Embedded Images 1:54 PM CDT DERMATOPATHOLOGY LABORATORY Pathology/Cytolog y TISSUE SPECIMEN FROM SKIN / Unknown 01/19/2025 01/20/2025 2:20 PM CDT Sheryl Hernandez MD LAB - PATHOLOGY/CYTOLOGY OR DERABLES Final Result DERMATOPATHOLOGY LABORATORY [facility] - Department of Dermatology [facility] [address] [facility], [address] [phone] from Last 3 Months Insurance [facility] MANAGED MEDICARE ADV [facility] MANAGED MEDICARE ADV * Guarantor: DAVION VARGAS Account Type Relation to Patient Date of Phone Billing Address Personal/Family Spouse * Guarantor: DAVION GASPAR Account Type Relation to Patient Date of Phone Billing Address Personal/Family Spouse Care Teams Video Presentation Operator Relationship Specialty Start Date End Date Les Mason MD [address] [place] [address] PCP - General Family Medicine 06/01/24
--- OUTSIDE RECORDS SUMMARY | 2025-04-02 03:39 | XMS_ITS | Encounter Summary ---
Author Organization [facility] Address [address] [place] [address] Care Team Providers Care Neck Band Operator Name Role Phone Les Mason MD Primary Care Provider [phone] Encounter Details Date Type Department Care Team (Latest Contact Info) Description 04/27/2005 Outpatient Historical [facility] Anibal Quezada MD [address] [facility] [address] 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 Gender Identity Not on file Sexual Orientation Not on file documented as of this encounter Plan of Treatment Upcoming Encounters Date Type Department Care Team (Late st Contact Info) Description 06/19/2025 11:00 AM CDT Office Visit [facility] Oncology and Hematology - [place] [address] [facility] 200 [place] [address] Alex Maciel MD [address] [facility] [address] [place] [address] documented as of this encounter Visit Diagnoses Diagnosis Malignant neoplasm of tongue, 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 diff 01/19/2021 01/19/2021 01/19/2021 8:28 PM CDT documented as of this encounter Care Teams Neck Band Operator Relationship Specialty Start Date End Date Les Mason MD [address] [place] [address] PCP - General Family Practice 01/10/21 documented as of this encounter
--- OUTSIDE RECORDS SUMMARY | 2025-04-02 03:39 | XMS_ITS | Encounter Summary ---
Author Organization [facility] Address [address] [place] [address] Care Team Providers Care Applicator Sprayer Name Role Phone Les Mason MD Primary Care Provider [phone] Encounter Details Date Type Department Care Team (Latest Contact Info) Description 06/20/2004 Outpatient Historical [facility] Anibal Quezada MD [address] [facility] [address] 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 Gender Identity Not on file Sexual Orientation Not on file documented as of this encounter Plan of Treatment Upcoming Encounters Date Type Department Care Team (Late st Contact Info) Description 06/19/2025 11:00 AM CDT Office Visit [facility] Oncology and Hematology - [place] [address] [facility] 200 [place] [address] Alex Maciel MD [address] [facility] [address] [place] [address] documented as of this encounter Visit Diagnoses Diagnosis 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 diff 01/19/2021 01/19/2021 01/19/2021 8:2 8 PM CDT documented as of this encounter Care Teams Applicator Sprayer Relationship Specialty Start Date End Date Les Mason MD [address] [place] [address] PCP - General Family Practice 01/10/21 documented as of this encounter
--- OUTSIDE RECORDS SUMMARY | 2025-04-02 03:39 | XMS_ITS | Encounter Summary ---
Author Organization [facility] Address [address] [place] [address] Care Team Providers Care Investigative Reporter Name Role Phone Les Mason MD Primary Care Provider [phone] Encounter Details Date Type Department Care Team (Latest Contact Info) Description 10/23/2004 Outpatient Historical [place] [address] [facility] [address] [place] [address] Anibal Quezada MD [address] [facility]. 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 Oncology and Hematology - [place] [address] [facility] [address] [place] [address] Alex Maciel MD [address] [facility] [address] [place] [address] documented as of this encounter Visit Diagnoses Diagnosis Malignant neoplasm of head, face, and neck (CMS/HCC)- Primary Malignant neoplasm of head, face, and neck documented in this encounter Additional Health Concerns Infection Onset Date Last Indicated Resolved Time R/O C. diff 01/19/2021 01/19/2021 01/19/2021 8:28 PM CDT documented as of this encounter Care Teams Investigative Reporter Relationship Specialty Start Date End Date Les Mason MD [address] [place] [address] PCP - General Family Practice 01/10/21 documented as of this encounter
--- OUTSIDE RECORDS SUMMARY | 2025-04-02 03:39 | XMS_ITS | Encounter Summary ---
Author Organization [facility] Address [address] [place] [address] Care Team Providers Care Research & Analytics Manager Name Role Phone Les Mason MD Primary Care Provider [phone] Encounter Details Date Type Department Care Team (Late Contact Info) Description 11/24/2004 Outpatient Historical [place] [address] 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 Oncology and Hematology - [place] [address] [facility] 200 [place] [address] Alex Maciel MD [address] [facility] [address] [place] [address] documented as of this encounter Visit Diagnoses Not on filedocumented in this encounter Additional Health Concerns Infection Onset Date Last Indicated Resolved Time R/O C. diff 01/19/2021 01/19/2021 01/19/2021 8:28 PM CDT documented as of this encounter Care Teams Research & Analytics Manager Relationship Specialty Start Date End Date Les Mason MD [address] [place] [address] PCP - General Family Practice 01/10/21 documented as of this encounter
--- OUTSIDE RECORDS SUMMARY | 2025-04-02 03:39 | XMS_ITS ---
Author Organization [facility] Address [address] [facility] [place] [address] Phone Care Team Providers Care Education Sales Consultant Name Role Phone Les Mason MD Primary Care Provider [phone] Active Problems Problem Noted Date Diagnosed Date [...]
--- OUTSIDE RECORDS SUMMARY | 2025-04-02 03:39 | XMS_ITS | Encounter Summary ---
Author Organization [facility] Address [address] [place] [address] Care Team Providers Care Edge Trimmer Name Role Phone Les Mason MD Primary Care Provider [phone] Encounter Details Date Type Department Care Team (Latest Contact Info) Description 05/03/2006 Outpatient Historical [facility] Anibal Quezada MD [address] [facility]. 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 Gender Identity Not on file Sexual Orientation Not on file documented as of this encounter Plan of Treatment Upcoming Encounters Date Type Department Care Team (Late st Contact Info) Description 06/19/2025 11:00 AM CDT Office Visit [facility] Oncology and Hematology - [place] 2227 [facility] 200 [place] [address] Alex Maciel MD [address] [facility] [address] [place] [address] documented as of this encounter [...] documented as of this encounter Care Teams Edge Trimmer Relationship Specialty Start Date End Date Les Mason MD [address] [place] [address] PCP - General Family Practice 01/10/21 documented as of this encounter
--- OUTSIDE RECORDS SUMMARY | 2025-04-02 03:39 | XMS_ITS | Encounter Summary ---
Author Organization [facility] Address [address] [place] [address] Care Team Providers Care Regional Retail Sales Manager Name Role Phone Les Mason MD Primary Care Provider [phone] Encounter Details Date Type Department Care Team (Latest Contact Info) Description 07/19/2004 Outpatient Historical [place] [address] [facility] [address] [place] [address] Anibal Quezada MD [address] [facility]. 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 Gender Identity Not on file Sexual Orientation Not on file documented as of this encounter Plan of Treatment Upcoming Encounters Date Type Department Care Team (Late st Contact Info) Description 06/19/2025 11:00 AM CDT Office Visit [facility] Oncology and Hematology - [place] [address] [facility] 200 [place] [address] Alex Maciel MD [address] [facility] [address] [place] [address] documented as of this encounter Visit Diagnoses Diagnosis Malignant neoplasm of head, face, and neck (CMS/HCC)- Primary Malignant neoplasm of head, face, and neck documented in this encounter Additional Health Concerns Infection Onset Date Last Indicated Resolved Time R/O C. diff 01/19/2021 01/19/2021 01/19/2021 8:28 PM CDT documented as of this encounter Care Teams Regional Retail Sales Manager Relationship Specialty Start Date End Date Les Mason MD [address] [place] [address] PCP - General Family Practice 01/10/21 documented as of this encounter
--- OUTSIDE RECORDS SUMMARY | 2025-04-02 03:39 | XMS_ITS | Encounter Summary ---
Author Organization [facility] Address [address] [place] [address] Care Team Providers Care Revenue Coordinator Name Role Phone Les Mason MD Primary Care Provider [phone] Encounter Details Date Type Department Care Team (Latest Contact Info) Description 06/29/2004 Inpatient Historical HIS PATIENT IN A BED Anibal Quezada MD [address] [facility]. 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 200 [place] [address] Alex Maciel MD [address] [facility] [address] [place] [address] documented as of this encounter Visit Diagnoses Diagnosis 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 diff 01/19/2021 01/19/2021 01/19/2021 8:28 PM CDT documented as of this encounter Care Teams Revenue Coordinator Relationship Specialty Start Date End Date Les Mason MD [address] [place] [address] PCP - General Family Practice 01/10/21 documented as of this encounter
--- OUTSIDE RECORDS SUMMARY | 2025-04-02 03:39 | XMS_ITS | Encounter Summary ---
Author Organization [facility] Address [address] [place] [address] Care Team Providers Care Speed Reading Teacher Name Role Phone Les Mason MD Primary Care Provider [phone] Encounter Details Date Type Department Care Team (Late st Contact Info) Description 01/20/2025 Lab Requisition [facility] - DermPath Lab [address] [facility], [place] [address] Sheryl Hernandez MD [address] [facility] [address] [place] [address] Social History Tobacco Use Types Packs/Day Years Used Date Smoking Tobacco: Never Assessed Sex and Gender Information Value Date Recorded Sex Assigned at Not on file 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 Camron Frey. These tests need not be, and therefore are not, approved by the [place] Food and Drug Administration. The tests are used for clinical purposes. Billing Codes Specimen Charges Stain Charges 43702 1 1:54 PM CDT DERMATOPATHOLOGY LABORATORY Embedded Images 1:54 PM CDT DERMATOPATHOLOGY LABORATORY Pathology/Cytolog y TISSUE SPECIMEN FROM SKIN / Unknown 01/19/2025 01/20/2025 2:20 PM CDT us Sheryl Hernandez MD LAB - PATHOLOGY/CYTOLOGY OR DERABLES Final Result DERMATOPATHOLOGY LABORATORY [facility] - Department of Dermatology [facility] [address] [place] [address], [address] [phone] documented in this encounter Visit Diagnoses Not on filedocumented in this encounter Care Teams Speed Reading Teacher Relationship Specialty Start Date End Date Les Mason MD [address] [place] [address] PCP - General Family Medicine 06/01/24 documented as of this encounter
--- OUTSIDE RECORDS SUMMARY | 2025-04-02 03:39 | XMS_ITS | Encounter Summary ---
Author Organization [facility] Address [address] [place] [address] Care Team Providers Care Tire Beader Maker Name Role Phone Les Mason MD Primary Care Provider [phone] Encounter Details Date Type Department Care Team (Latest Contact Info) Description 01/26/2005 Outpatient Historical [place] [address] [facility] [address] [place] [address] Anibal Quezada MD [address] [facility]. 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 Gender Identity Not on file Sexual Orientation Not on file documented as of this encounter Plan of Treatment Upcoming Encounters Date Type Department Care Team (Late st Contact Info) Description 06/19/2025 11:00 AM CDT Office Visit [facility] Oncology and Hematology - [place] [address] [facility] 200 [place] [address] Alex Maciel MD 2[address] [facility] [address] [place] [address] documented as of this encounter Visit Diagnoses Diagnosis Malignant neoplasm of head, face, and neck (CMS/HCC)- Primary Malignant neoplasm of head, face, and neck documented in this encounter Additional Health Concerns Infection Onset Date Last Indicated Resolved Time R/O C. diff 01/19/2021 01/19/2021 01/19/2021 8:28 PM CDT documented as of this encounter Care Teams Tire Beader Maker Relationship Specialty Start Date End Date Les Mason MD [address] [place] [address] PCP - General Family Practice 01/10/21 documented as of this encounter
--- OUTSIDE RECORDS SUMMARY | 2025-04-02 03:39 | XMS_ITS | Encounter Summary ---
Author Organization [facility] Address [address] [place] [address] Care Team Providers Care Spiral Weaver Name Role Phone Les Mason MD Primary Care Provider Encounter Details Date Type Department Care Team (Latest Contact Info) Description 05/11/2005 Outpatient Historical [place] [address] [facility] [address] [place] [address] Anibal Quezada MD [address] [facility]. 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 Gender Identity Not on file Sexual Orientation Not on file documented as of this encounter Plan of Treatment Upcoming Encounters Date Type Department Care Team (Late st Contact Info) Description 06/19/2025 11:00 AM CDT Office Visit [facility] Oncology and Hematology - [place] [address] [facility] 200 [place] [address] Alex Maciel MD 2[address] [facility] [address] [place] [address] documented as of this encounter [...] documented as of this encounter Care Teams Spiral Weaver Relationship Specialty Start Date End Date Les Mason MD [address] [place] [address] PCP - General Family Practice 01/10/21 documented as of this encounter
--- OUTSIDE RECORDS SUMMARY | 2025-04-02 03:39 | XMS_ITS | Encounter Summary ---
Author Organization [facility] Address [address] [place] [address] Care Team Providers Care Technical Support Agent Name Role Phone Les Mason MD Primary Care Provider [phone] Encounter Details Date Type Department Care Team (Latest Contact Info) Description 08/20/2004 Outpatient Historical [place] [address] [facility] [address] [place] [address] Anibal Quezada MD [address] [facility]. 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 Gender Identity Not on file Sexual Orientation Not on file documented as of this encounter Plan of Treatment Upcoming Encounters Date Type Department Care Team (Late st Contact Info) Description 06/19/2025 11:00 AM CDT Office Visit [facility] Oncology [facility] Hematology - [place] [facility] [facility] 200 [place] [address] Alex Maciel MD 2[address] [facility] [address] [place] [address] documented as of this encounter Visit Diagnoses Diagnosis Malignant neoplasm of head, face, and neck (CMS/HCC)- Primary Malignant neoplasm of head, face, and neck documented in this encounter Additional Health Concerns Infection Onset Date Last Indicated Resolved Time R/O C. diff 01/19/2021 01/19/2021 01/19/2021 8:28 PM CDT documented as of this encounter Care Teams Technical Support Agent Relationship Specialty Start Date End Date Les Mason MD [address] [place] [address] PCP - General Family Practice 01/10/21 documented as of this encounter
--- OUTSIDE RECORDS SUMMARY | 2025-04-02 03:39 | XMS_ITS | Encounter Summary ---
Author Organization [facility] Address [address] [place] [address] Care Team Providers Care Operation Supervisor Name Role Phone Les Mason MD Primary Care Provider [phone] Encounter Details Date Type Department Care Team (Latest Contact Info) Description 06/17/2004 Outpatient Historical [place] [address] [facility] [address] [place] [address] Anibla Quezada MD [address] [facility]. 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 Gender Identity Not on file Sexual Orientation Not on file documented as of this encounter Plan of Treatment Upcoming Encounters Date Type Department Care Team (Late st Contact Info) Description 06/19/2025 11:00 AM CDT [facility] Visit [facility] Hematology - [place] [address] [facility] [address] [place] [address] Alex Maciel MD [address] [facility] [address] [place] [address] documented as of this encounter Visit Diagnoses Diagnosis Malignant neoplasm of head, face, and neck (CMS/HCC)- Primary Malignant neoplasm of head, face, and neck documented in this encounter Additional Health Concerns Infection Onset Date Last Indicated Resolved Time R/O C. diff 01/19/2021 01/19/2021 01/19/2021 8:28 PM CDT documented as of this encounter Care Teams Operation Supervisor Relationship Specialty Start Date End Date Les Mason MD [address] [place] [address] PCP - General Family Practice 01/10/21 documented as of this encounter
--- OUTSIDE RECORDS SUMMARY | 2025-04-02 03:39 | XMS_ITS | Encounter Summary ---
Author Organization [facility] Address [address] [place] [address] Care Team Providers Care Numerical Control Machine Operator Name Role Phone Les Mason MD Primary Care Provider [phone] Encounter Details Date Type Department Care Team (Late st Contact Info) Description 06/29/2004 Outpatient Historical [facility] ([facility]) [address] 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 200 [place] [address] Alex Maciel MD 2[address] [facility] [address] [place] [address] documented as of this encounter Visit Diagnoses Not on filedocumented in this encounter Additional Health Concerns Infection Onset Date Last Indicated Resolved Time R/O C. diff 01/19/2021 01/19/2021 01/19/2021 8:28 PM CDT documented as of this encounter Care Teams Numerical Control Machine Operator Relationship Specialty Start Date End Date Les Mason MD [address] [place] [address] PCP - General Family Practice 01/10/21 documented as of this encounter
--- OUTSIDE RECORDS SUMMARY | 2025-04-02 03:39 | XMS_ITS | Encounter Summary ---
Author Organization [facility] Address [address] [place] [address] Care Team Providers Care Hunting Guide Name Role Phone Les Mason MD Primary Care Provider [phone] Encounter Details Date Type Department Care Team (Latest Contact Info) Description 09/07/2005 Outpatient Historical [place] [address] [facility] [address] [place] [address] Anibal Quezada MD [address] [facility]. 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 Gender Identity Not on file Sexual Orientation Not on file documented as of this encounter Plan of Treatment Upcoming Encounters Date Type Department Care Team (Late st Contact Info) Description 06/19/2025 11:00 AM CDT Office Visit [facility] Oncology and Hematology - [place] [address] [facility] 200 [place] [address] Alex Maciel MD 2227 [facility] [address] [place] [address] documented as of this encounter Visit Diagnoses Diagnosis 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 diff 01/19/2021 01/19/2021 01/19/2021 8:28 PM CDT documented as of this encounter Care Teams Hunting Guide Relationship Specialty Start Date End Date Les Mason MD [address] [place] [address] PCP - General Family Practice 01/10/21 documented as of this encounter
--- OUTSIDE RECORDS SUMMARY | 2025-04-02 03:39 | XMS_ITS | Encounter Summary ---
Author Organization [facility] Address [address] [place] [address] Care Team Providers Care Field Operations Coordinator Name Role Phone Les Mason MD Primary Care Provider [phone] Encounter Details Date Type Department Care Team (Latest Contact Info) Description 11/20/2006 Outpatient Historical [facility] [place] [address] [facility] [address] [place] [address] Anibal Quezada MD [address] 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 Gender Identity Not on file Sexual Orientation Not on file documented as of this encounter Plan of Treatment Upcoming Encounters Date Type Department Care Team (Late st Contact Info) Description 06/19/2025 11:00 AM CDT Office Visit [facility] Oncology and Hematology - [place] [address] [facility] [address] [place] [address] Alex Maciel MD [address] [facility] [address] [place] [address] documented as of this encounter Visit Diagnoses Diagnosis Radiotherapy follow-up examination- Primary documented in this encounter Additional Health Concerns Infection Onset Date Last Indicated Resolved Time R/O C. diff 01/19/2021 01/19/2021 01/19/2021 8:28 PM CDT documented as of this encounter Care Teams Field Operations Coordinator Relationship Specialty Start Date End Date Les Mason MD [address] [place] [address] PCP - General Family Practice 01/10/21 documented as of this encounter
--- OUTSIDE RECORDS SUMMARY | 2025-04-02 03:39 | XMS_ITS | Encounter Summary ---
Author Organization [facility] Address [address] [place] [address] Care Team Providers Care Admission Nurse Coordinator Name Role Phone Les Mason MD Primary Care Provider [phone] Encounter Details Date Type Department Care Team (Latest Contact Info) Description 11/17/2004 Outpatient Historical [facility] Anibal Quezada MD [address] [facility] [address] 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 [address] [place] [address] Alex Maciel MD [address] [facility] [address] [place] [address] documented as of this encounter Visit Diagnoses Diagnosis Follow-up examination, following other surgery- Primary documented in this encounter Additional Health Concerns Infection Onset Date Last Indicated Resolved Time R/O C. diff 01/19/2021 01/19/2021 01/19/2021 8:28 PM CDT documented as of this encounter Care Teams Admission Nurse Coordinator Relationship Specialty Start Date End Date Les Mason MD [address] [place] [address] PCP - General Family Practice 01/10/21 documented as of this encounter
--- OUTSIDE RECORDS SUMMARY | 2025-04-02 03:39 | XMS_ITS | Encounter Summary ---
Author Organization [facility] Address [address] [place] [address] Care Team Providers Care Lapel Padder Name Role Phone Les Mason MD Primary Care Provider [phone] Encounter Details Date Type Department Care Team (Latest Contact Info) Description 02/02/2009 Outpatient Historical [facility] Tootie Luna MD [address] [facility] [address] 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 Gender Identity Not on file Sexual Orientation Not on file documented as of this encounter Plan of Treatment Upcoming Encounters Date Type Department Care Team (Late st Contact Info) Description 06/19/2025 11:00 AM CDT Office Visit [facility] Oncology and Hematology - [place] [address] [facility] 200 [place] [address] Alex Maciel MD [address] [facility] [address] [place] [address] documented as of this encounter Procedures Procedure Name Priority Date/Time Associated Diagnosis Comments XR CHEST PA AND LATERAL 2 VW Routine 02/02/2009 9:25 AM CDT documented in this encounter Results * XR CHEST PA AND LATERAL (02/02/2009 9:25 AM CDT) Anatomical Region Laterality Modality Chest Other 02/02/2009 9:25 AM CDT Narrative 02/02/2009 12:42 PM CDT [address] [address] Admit Date: 02/02/2009 DAVION VARGAS Sex: M Admit Prov: TOOTIE LUNA Date: 1950 Primary Care Prov: JESICA GRAMAJO CMRN: [id number] [facility] [address] [place] [address] IMAGING SERVICES Ordering Prov: N/A Accession Number: [id number] Interpretation PA AND LATERAL CHEST X-RAY. 02/02/2009 [...] Note Lona Souza MD - 02/02/[address] [place] [address] Admit Date: 02/02/2009 DAVION VARGAS Sex: M Admit Prov: TOOTIE LUNA Date: 1950 Primary Care Prov: JESICA GRAMAJO CMRN: [id number] [facility] [address] [place] [address] IMAGING SERVICES Ordering Prov: N/A Interpretation PA [...] documented as of this encounter Care Teams Lapel Padder Relationship Specialty Start Date End Date Les Mason MD [address] [place] [address] PCP - General Family Practice 01/10/21 documented as of this encounter
--- OUTSIDE RECORDS SUMMARY | 2025-04-02 03:39 | XMS_ITS | Encounter Summary ---
Author Organization [facility] Address [address] [place] [address] Care Team Providers Care Wetlands Technician Name Role Phone Les Mason MD Primary Care Provider [phone] Encounter Details Date Type Department Care Team (Latest Contact Info) Description 04/05/2006 Outpatient Historical [place] [address] [facility] [address] [place] [address] Anibal Quezada MD [address] 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 Gender Identity Not on file Sexual Orientation Not on file documented as of this encounter Plan of Treatment Upcoming Encounters Date Type Department Care Team (Late st Contact Info) Description 06/19/2025 11:00 AM CDT Office Visit [facility] Oncology and Hematology - [place] [address] [facility] 200 [place] [address] Alex Maciel MD [address] [facility] [address] [place] [address] documented as of this encounter Visit Diagnoses Diagnosis 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 diff 01/19/2021 01/19/2021 01/19/2021 8:28 PM CDT documented as of this encounter Care Teams Wetlands Technician Relationship Specialty Start Date End Date Les Mason MD [address] [place] [address] PCP - General Family Practice 01/10/21 documented as of this encounter
--- OUTSIDE RECORDS SUMMARY | 2025-04-02 03:39 | XMS_ITS | Encounter Summary ---
Author Organization [facility] Address [address] [place] [address] Care Team Providers Care Autocad Detailer Name Role Phone Les Mason MD Primary Care Provider [phone] Encounter Details Date Type Department Care Team (Latest Contact Info) Description 06/20/2005 Outpatient Historical [facility] [place] [place] [address] [facility] [address] [place] [address] DEMETRIO LOPEZ HEAD/FACE/NECK (CMS/HCC) (Primary Dx) Social History Tobacco Use Types Packs/Day Years Used Date Smoking Tobacco: Never Assessed Sex and Gender Information Value Date Recorded Sex Assigned at Not on file 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 Gender Identity Not on file Sexual Orientation Not on file documented as of this encounter Plan of Treatment Upcoming Encounters Date Type Department Care Team (Late st Contact Info) Description 06/19/2025 11:00 AM CDT Office Visit [facility] Oncology and Hematology - [place] [address] [place] [address] [facility] 200 [place] [address] Alex Maciel MD [address] [facility] [address] [place] [address] documented as of this encounter Visit Diagnoses Diagnosis Malignant neoplasm of head, face, and neck (CMS/HCC)- Primary Malignant neoplasm of head, face, and neck documented in this encounter Additional Health Concerns Infection Onset Date Last Indicated Resolved Time R/O C. diff 01/19/2021 01/19/2021 01/19/2021 8:28 PM CDT documented as of this encounter Care Teams Autocad Detailer Relationship Specialty Start Date End Date Les Mason MD [address] [place] [address] PCP - General Family Practice 01/10/21 documented as of this encounter
[2025-04-02] MEDS: LACTATED RINGERS 1,000 ML 30 ML IV CONT ×2 (06:30→08:16)
--- NOTE | 2025-04-02 06:54 | WPDHPUPDATE1 ---
History and Physical Update Update Date/Time: 04/02/25 06:54 History and Physical has been reviewed, including an updated exam of the patient. There are NO changes in the patient's condition. Risks, benefits, and alternatives have been discussed and questions answered. Patient agrees to proceed with procedure.
--- NOTE | 2025-04-02 07:02 | WPDANESEPPF ---
Anes - Initial Pre Proc Eval Procedure: Operation Date: 04/02/25 07:30 Proposed Procedures p Trans Urethral Resection Bladder Tumor with Gemcitabine Instillation - Joey Matias MD Date/Time: 04/02/25 07:02 Surgeon: Joey Matias MD Pre Op Diagnosis: bladder CA Patient Data Age: 74 Gender: M Height: 1.7 m Weight: 83 kg Allergies Allergy/AdvReac Type Severity Reaction Status Date / Time No Known Allergies Allergy Unknown Verified 03/19/25 08:39 Home Medications ?Medication ?Instructions ?Recorded ?Confirmed ?Type tamsulosin 0.4 mg capsule 0.4 mg PO HS 10/24/23 03/19/25 History ferrous sulfate 325 mg (65 mg 325 mg PO BID #60 tabs 02/04/24 03/19/25 Rx iron) tablet,delayed release lisinopril 20 mg tablet 20 mg PO DAILY #90 tabs 05/29/24 03/19/25 Rx rosuvastatin 20 mg tablet See Rx Instructions .Route 05/29/24 03/19/25 Rx .COMPLEX #90 tabs meclizine 25 mg tablet 25 mg PO BID PRN dizziness #180 06/16/24 03/19/25 Rx tabs levothyroxine 112 mcg tablet 112 mcg PO DAILY #90 tabs 10/07/24 03/19/25 Rx omeprazole 20 mg capsule,delayed 20 mg PO DAILY #90 caps 02/18/25 03/19/25 Rx release hydrochlorothiazide 12.5 mg tablet 12.5 mg PO DAILY #30 tabs 03/16/25 03/19/25 Rx ascorbic acid (vitamin C) 500 mg 1 mg PO DAILY 03/19/25 03/19/25 History capsule cyanocobalamin (vitamin B-12) 1,000 mcg PO DAILY 03/19/25 03/19/25 History 1,000 mcg capsule rivaroxaban 15 mg tablet (Xarelto) 15 mg PO DAILY #30 tabs 03/23/25 Rx Patient hx anesthesia problems: none Family hx anesthesia problems: none Results Review: All pre-operative results and documents have been reviewed as part of the pre-operative evaluation. [facility] Past Medical History Medical History (Updated 04/02/25 @ 07:03 by Anibal Goff MD) Cancer of base of tongue Iron deficiency anemia Bladder cancer (08/2023) Noninvasive low-grade papillary urothelial carcinoma. Tongue cancer Status post radiation. 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 Surgical History Surgical History History of transurethral resection of bladder tumor (TURBT) History of hernia repair History of colonoscopy with polypectomy History of cystoscopy History of mandibular surgery Family History Family History Father Diabetes mellitus Hypertension Acute angina Coronary artery disease Heart disease Mother Congestive heart failure Diabetes mellitus Sibling Myocardial infarction Heart disease Sibling No problems noted. Social History Social History Social History: Surrogate medical decision maker: Babita Schreiber, spouse. Code status: Full code. Smoking status: Never smoker Second hand tobacco smoke exposure: No Alcohol intake: current Drinks per week: 14 Alcohol use details: 3 BEERS/DAY Substance use: never Substance use type: marijuana Other substance usage details: Gummies occasionally Do You Feel Safe in your Home?: Yes Lack of Transportation: No Lack of Food: Never True Current Housing: I Have Housing Concerned About Future Housing: Decline to Answer Difficulty Paying Gas/Electric Bills: Decline to Answer Difficulty Paying for Meds: Decline to Answer Currently Unemployed: Decline to Answer Education: Master's Degree or Higher Difficulty w/ Childcare or Family Care: No Living arrangements: with family Additional living arrangements comments: Occupation/Education: retired Additional occupation/education comments: [employer]. Spiritual care concerns: No Anes - Eval Final PreProcedure Day of Procedure 04/02/25 07:02 Patient weight: overweight Heart: regular rate and rhythm Lungs: clear to auscultation Airway: Mallampati scale class II, special considerations poor opening and other (right neck radiation) Neurological: alert and oriented Last oral intake: >/= 8 hours Anesthetic plan: proceed Anesthesia type and monitoring: general LMA and standard monitoring Results Review: All pre-operative results and documents have been reviewed as part of the pre-operative evaluation. Informed Consent: The patient's anesthetic plan and its attendant risks and benefits were discussed with the patient/family/POA. Questions were solicited and answers provided to the satisfaction of the patient/family/POA.
[2025-04-02] MEDS: ceFAZolin 2 GM/D5W 50 ML 2 GM/50 ML BAG IVPB (07:20)
[2025-04-02] MEDS: LIDOCAINE 2% GEL UROJET 10 ML PKG MUCOUS MEM (07:25)
--- NOTE | 2025-04-02 07:36 | S_PTH ---
PATIENT: Angel Vargas LOC: [facility] U#:[id number] AGE/SX: 74/M ROOM: RE04/02/[address]: Joey Matias MD : 1950 BED: DIS: 04/02/2025 SPEC #: [id number] RECD: 04/02/25 09:00 STATUS: LINO REIgnacio #: [id number] REENA: 04/02/25 07:[address]: Joey Matias DEPT: [facility] Surgical RECD BY: Jessie Bennett ENTERED: 04/02/25 09:00 SP TYPE: Surgical OTHR DR: Les Mason MD Tissues: A - Bladder Tumor Procedures: Hematoxylin and Eosin Stain Gross and Microscopic Level 4
--- NOTE | 2025-04-02 07:48 | P.OP_ITS ---
Procedure Note - Detailed Date of Procedure 04/02/25 Pre-op Diagnosis Bladder Ca., bulbous urethral stricture Post-op Diagnosis Same Procedure Performed Cystoscopy, urethral dilatation, TURBT (small, 1 cm) Surgeon Joey Matias MD Anesthesia General Description of Procedure Patient is brought to the operative suite where she was prepped draped in routine sterile fashion while in dorsal lithotomy position after the uneventful induction of a general LMA anesthetic. Cystoscopy was undertaken with a 19 F ri gid cystoscope ES a bulbous urethral stricture which will allow passage of the cystoscope so I dilated with Heath sounds from 18-28 F. Twenty-four F resectoscope was placed in the bladder. The bladder was very carefully inspected he is found to have just the 1 papillary lesion in the left posterior lateral bladder wall. This is resected with an attempt made to include detrusor muscle for pathological evaluation invasion. There was difficulty with the cutting mode and there is significant desiccation prior to resecting actual tissue. Base and periphery was cauterized. The system with care to avoid injury to left ureteral orifice. The remainder the bladder was very carefully inspected and found to be without additional neoplasm. Resectoscope was removed and an 18 F Lindsey catheter was placed to drainage. Packing Yes Pathology Yes Complications No immediate complications
--- NOTE | 2025-04-02 07:51 | W.PM.PROC2 ---
Procedure Note - Detailed Date of Procedure 04/02/25 Pre-op Diagnosis Bladder CA Post-op Diagnosis Same Procedure Performed Gemcitabine installation Surgeon Joey Matias MD Anesthesia None Description of Procedure With the patient in the supine position, a 16F Lindsey catheter is placed using sterile technique. Using a protective facemask, gown and double layer of gloves Gemcitabine 2gm in 100cc saline is administered through the catheter/into the bladder. The catheter is then plugged. Patient was instructed to lie supine x20min, then to roll both the left and right x20 min. each. Total dwell time will be 60 min., after which the bladder will be drained and catheter removed.
[2025-04-02] MEDS: SODIUM CHLORIDE 0.9% IV 23.7 ML, GEMCITABINE HCL 1,000 MG BLADDER ×2 (07:59→08:00)
[2025-04-02] MEDS: fentaNYL CITRATE INJ (*CRX) 100 MCG/2 ML VIAL 25 MCG IV PUSH ×2 (08:45→08:48)
== END 2025-04-02 10:15 | disposition home or self-care (01) ==
PROVIDERS: PCP Family Medicine; Visit Provider Urology
PROC: 0TBB8ZZ Excision of Bladder, Via Natural or Artificial Opening Endoscopic (ICD-10-PCS; CPT 52234; principal; 2025-04-02 07:30)
DX: N30.20 Other chronic cystitis without hematuria (principal); E03.9 Hypothyroidism, unspecified; E78.00 Pure hypercholesterolemia, unspecified; D50.9 Iron deficiency anemia, unspecified; K21.9 Gastro-esophageal reflux disease without esophagitis; F41.9 Anxiety disorder, unspecified; I12.9 Hypertensive chronic kidney disease with stage 1 through stage 4 chronic kidney disease, or unspecified chronic kidney disease; N18.9 Chronic kidney disease, unspecified; D63.1 Anemia in chronic kidney disease; M27.2 Inflammatory conditions of jaws; F12.90 Cannabis use, unspecified, uncomplicated; Z79.01 Long term (current) use of anticoagulants; Z98.890 Other specified postprocedural states; Z92.3 Personal history of irradiation; Z86.0100 Personal history of colon polyps, unspecified; Z87.448 Personal history of other diseases of urinary system; Z85.810 Personal history of malignant neoplasm of tongue; Z85.46 Personal history of malignant neoplasm of prostate; Z85.51 Personal history of malignant neoplasm of bladder; Z82.49 Family history of ischemic heart disease and other diseases of the circulatory system
CPT/HCPCS: 52234; 51720; 88305; J0690; J1100; J2003; J2371; J2405; J2704; J3010; J7120; J9201

== ENCOUNTER 2025-06-15 09:02 | Outpatient (CLI) | payer MEDICARE, SELFPAY ==
[2025-06-15 09:15] LABS: Hematocrit 30.9 % (42.0-52.0); Hemoglobin 10.4 g/dL (14.0-18.0); Mean Corpuscular HGB Conc 33.7 g/dl (32-36); Mean Corpuscular Hemoglobin 31.0 pg (26-34); Mean Corpuscular Volume 92.2 fl (80-100); Platelet Count Result 288 k/mm3 (150-375); Red Blood Count 3.35 M/mm3 (4.6-6.20); White Blood Count 5.8 K/mm3 (4.5-10.0)
--- OUTSIDE RECORDS SUMMARY | 2025-06-15 09:37 | XMS_ITS | Clinical Summary ---
Author Organization [facility] [employer] Address [address] [place] [address] Care Team Providers Care Grab Setter Name Role Phone Les Mason MD Primary Care Provider [phone] Source Comments [facility],non-owned Affiliates and Associated Physician Practices is amultiple site organization consisting of ambulatory clinics and hospital sitesin [place], [place], [place] and [place]. This disclosure is being madepursuant to the Care Everywhere program and may not contain all information available regarding this patient. Last updated 18.[facility] Allergies No known active allergies Medications * Be aware that medications may not be up to date on this document. Alwaysverify current medications with the patient. 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 Gender Identity Not on file Sexual Orientation [...] Health Maintenance Due Date Last Done Comments BIANCARD (AGES 45-75) - COLON CA SCREENING 1950 [...] VACCINE (1 of 2) 2000 COVID-19 VACCINE (6 - season) 2024 08/17/2023, 08/07/2022, 03/21/2022, Additional history exists DEPRESSION SCREENING 10/22/2024 MEDICARE AWV CALENDAR YEAR 2024 Respiratory Syncytial Virus (RSV) Vaccine Pt: or over 60 yrs (1 - 1-dose 75+ series) 2025 INFLUENZA VACCINE (#1) 2025 , 08/07/2022, 07/25/2021, Additional history exists DTAP/TDAP/TD VACCINES [...] on patient's age to complete this topic Insurance [facility] MANAGED MEDICARE ADV [facility] MA[facility]ED MEDICARE ADV [facility] MA[facility]GED MEDICARE ADV SELF PAY NO INSURANCE Member Subscriber Plan / Payer (Ef fective for All Dates) Name:Davion Vargas Member ID:Not on file Relation to Subscriber:Not on file Name:DAVION VARGAS Subscriber ID:Not on file (Home) Address: [address] [place] [address] Payer ID:Not on file Group ID:Not on file Type:Self Pay Address: [place], [place] * Guarantor: DAVION VARGAS Account Type Relation to Patient Date of Phone Billing Address Personal/Family Spouse * Guarantor: DAVION GASPAR Account Type Relation to Patient Date of Phone Billing Address Personal/Family Spouse Care Teams Grab Setter Relationship Specialty Start Date End Date Les Mason MD [address] [place] [address] PCP - General Family Medicine 06/01/24
--- OUTSIDE RECORDS SUMMARY | 2025-06-15 09:37 | XMS_ITS | Encounter Summary ---
Author Organization [facility] Address [address] [place] [address] Care Team Providers Care Mainframe Analyst Name Role Phone Les Mason MD Primary Care Provider [phone] Encounter Details Date Type Department Care Team (Late st Contact Info) Description 01/20/2025 Lab Requisition [facility] - DermPath Lab [address] [facility] [place] [address] Sheryl Hernandez MD [address] [facility] [address] [place] [address] Social History Tobacco Use Types Packs/Day Years Used Date Smoking Tobacco: Never Assessed Sex and Gender Information Value Date Recorded Sex Assigned at Not on file 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 Gender Identity Not on file Sexual Orientation Not on file documented as of this encounter Plan of Treatment Not on file documented as of this encounter Procedures Procedure Name Priority Date/Time Associated Diagnosis Comments DERMATOPATHOLOGY Routine 01/19/2025 12:0 0 AM CDT documented in this encounter Results * DERMATOPATHOLOGY (01/19/2025 12:00 AM CDT) Case Report Dermatopathology Report Case: [id number] Authorizing Provider: Sheryl Hernandez MD Collected: 01/19/2025 12:00 AM Ordering Location: [facility] - Received: [...] characteristic determined by the Dermatopathology Laboratory at [facility], directed by Dr. Camron Frey. These tests need not be, and therefore are not, approved by the [place] Food and Drug Administration. The tests are used for clinical purposes. Billing Codes Specimen Charges Stain Charges 18661 1 1:54 PM CDT DERMATOPATHOLOGY LABORATORY Embedded Images 1:54 PM CDT DERMATOPATHOLOGY LABORATORY Pathology/Cytolog y TISSUE SPECIMEN FROM SKIN / Unknown 01/19/2025 01/20/2025 2:20 PM CDT us Sheryl Hernandez MD LAB - PATHOLOGY/CYTOLOGY OR DERABLES Final Result DERMATOPATHOLOGY LABORATORY [facility] - Department of Dermatology [facility] [address] [place] [address], [address] Floor [address] [phone] documented in this encounter Visit Diagnoses Not on filedocumented in this encounter Care Teams Mainframe Analyst Relationship Specialty Start Date End Date Les Mason MD [address] [place] [address] PCP - General Family Medicine 06/01/24 documented as of this encounter
[2025-06-15 10:01] LABS: Anion Gap 9 mmol/L (4-12); Blood Urea Nitrogen 22 mg/dL (9-20); Calcium 9.4 mg/dL (8.4-10.2); Carbon Dioxide 25 mmol/L (22-30); Chloride 101 mmol/L (98-107); Estimated Glomerular Filt Rate > 60; Glucose 105 mg/dL (65-110); Iron 65 ug/dL (49-181); Potassium 4.8 mmol/L (3.4-5.0); Sodium 135 mmol/L (137-145)
[2025-06-15 10:11] LABS: Percent Iron Saturation 15 % (20-50)
[2025-06-15 10:42] LABS: Ferritin 40.10 ng/mL (11.1-264)
[2025-06-15 11:38] LABS: Vitamin B12 > 1000.0 pg/mL (239-931)
== END 2025-06-15 09:03 | disposition home or self-care (01) ==
LOC: ANHLAB 09:03
PROVIDERS: PCP Family Medicine; Visit Provider Internal Medicine Hematology & Oncology
DX: D64.9 Anemia, unspecified (principal)
CPT/HCPCS: 36415; 80048; 82607; 82728; 82746; 83540; 83550; 85027